=== PATIENT | male | born 1955 | race Caucasian/White ===

== ENCOUNTER → 2016-09-20 | Outpatient (CLI) | payer MEDICARE ==
[2016-09-20 13:30] LABS: Blood Urea Nitrogen 13 mg/dL (9-20); Non-African American GFR(MDRD) >60 (>60 ml/min/1.73 sqM)
--- NOTE | 2016-09-20 14:07 | CT ---
EXAMINATION TYPE: CT chest w con DATE OF EXAM: 09/20/2016 1:57 PM COMPARISON: NONE HISTORY: chest mass CT DLP: 723.8 mGycm Automated exposure control for dose reduction was used. CONTRAST: CT scan of the chest is performed with IV Contrast, patient injected with 100 mL of Omnipaque 300. FINDINGS: LUNGS: Emphysematous changes noted with upper lobe centrilobular emphysema seen right greater than le ft. 5.7 mm noncalcified pulmonary nodule right lower lobe image 47 as well as a 7.4 mm pulmonary nodu le left lower lobe image 58. No pulmonary masses identified. MEDIASTINUM: There are no greater than 1 cm hilar or mediastinal lymph nodes. No pericardial effusi on is seen. Thoracic aorta is of normal caliber. The heart is mildly enlarged. Dilatation of the yohan n pulmonary artery measuring 4.7 cm transverse dimension. UPPER ABDOMEN: No significant abnormality appreciated. OTHER: No additional significant abnormality is seen. IMPRESSION: 1. No evidence for pulmonary mass. Nonspecific noncalcified pulmonary nodularity. 2. Upper lobe emphysematous changes. 3. A dilatation of the main pulmonary artery.
== END | disposition home or self-care (01) ==
LOC: RADCTMAIN 12:43
PROVIDERS: ATTEND Internal Medicine Critical Care Medicine
DX: J43.9 Emphysema, unspecified (principal); R91.8 Other nonspecific abnormal finding of lung field; I28.1 Aneurysm of pulmonary artery
CPT/HCPCS: 82565; 84520; 71260; 36415; Q9967

== ENCOUNTER 2016-10-20 07:24 | Inpatient (IN) | payer MEDICARE ==
[2016-10-20] MEDS ORDERED: ACETAMINOPHEN TAB 500 MG TAB PO STA (07:52)
[2016-10-20] MEDS ORDERED: IPRATROPIUM 0.5 MG/2.5 ML NEBU INHALATION STA (07:52)
[2016-10-20] MEDS ORDERED: ALBUTEROL NEBULIZED 2.5 MG/3 ML INHALATION STA (07:52)
[2016-10-20] MEDS ORDERED: methylPREDNISolone SOD SUCCI 125 MG/2 ML VIAL IV STA (07:52)
[2016-10-20] MEDS ORDERED: SODIUM CHLORIDE 0.9% 500 ML IV STA (07:52)
[2016-10-20] MEDS ORDERED: IBUPROFEN 600 MG TAB PO STA (07:53)
--- NOTE | 2016-10-20 07:55 | ED ---
General Adult HPI - General Chief complaint: Shortness of Breath Stated complaint: SOB, SYNCOPE Time Seen by Provider: 10/20/16 07:25 Source: patient, EMS, RN notes reviewed Mode of arrival: EMS - History of Present Illness Initial comments: This is a 61-year-old male who presents emergency Department with a past medical history significant for COPD and continues to smoke about a pack a day. Patient comes in today stating his difficult breathing over the last few days got incredibly worse. Patient states she is unable to sleep at all. Patient states she's also had a little bit more cough than normal. Patient denies any sputum production. Patient denies any chest pain or palpitations. Patient denies abdominal pain patient denies nausea vomiting diarrhea. Patient denies any swelling to the legs or calf tenderness. Patient denies any recent injury or fall. Patient denies headache. Patient denies any lightheadedness dizziness or near syncopal episode. - Related Data Home Medications Medication Instructions Recorded Confirmed Albuterol Sulfate [Ventolin HFA] 1 - 2 puff INHALATION RT-Q6H PRN 05/26/1410/20 metFORMIN HCL [Glucophage] 500 mg PO DAILY 05/26/14 10/20/16 Aspirin EC [Ecotrin Low Dose] 81 mg PO DAILY 05/18/16 10/20/16 Atorvastatin [Lipitor] 20 mg PO DAILY 05/18/16 10/20/16 Metoprolol Succinate [Toprol XL] 100 mg PO DAILY 05/18/16 10/20/16 Lisinopril [Zestril] 10 mg PO DAILY 10/20/16 10/20/16 Previous Rx's Medication Instructions Recorded Furosemide [Lasix] 40 mg PO DAILY #30 tablet 05/21/16 Spironolactone [Aldactone] 25 mg PO DAILY #30 tab 05/21/16 Albuterol Nebulized [Ventolin 2.5 mg INHALATION RT-TID #0 05/25/16 Nebulized] Allergies Allergy/AdvReac Type Severity Reaction Status Date / Time levofloxacin [From Levaquin] Allergy Rash/Hives Verified 10/20/16 08:02 mold Allergy Rash/Hives Verified 10/20/16 08:02 prednisone AdvReac Rash/Hives Verified 10/20/16 08:02 Review of Systems ROS Statement: Those systems with pertinent positive or pertinent negative responses have been documented in the HPI. ROS Other: All systems not noted in ROS Statement are negative. Past Medical History Past Medical History: Coronary Artery Disease (CAD), COPD, Diabetes Mellitus, Hyperlipidemia, Hypertension, Myocardial Infarction ([place]), Osteoarthritis (OA) Additional Past Medical History / Comment(s): cardiac myopathy with an ejection fraction of 20% for which the patient has undergone an AICD/pacemaker insertion Last Myocardial Infarction Date:: UNSURE History of Any Multi-Drug Resistant Organisms: None Reported Past Surgical History: AICD, Coronary Bypass/CABG, Orthopedic Surgery Additional Past Surgical History / Comment(s): Pacemaker and AICD- 09/2013, BILATERAL SHOULDER SURGERY , steel alcides in leg from fracture Past Anesthesia/Blood Transfusion Reactions: No Reported Reaction Type of Cardiac Device: AICD Device Placement Date:: Past Psychological History: No Psychological Hx Reported Smoking Status: Current every day smoker Past Alcohol Use History: Daily Past Drug Use History: None Reported - Past Family History Mother History Unknown: Yes Father Family Medical History: Myocardial Infarction ([place]) Brother(s) Family Medical History: Cancer General Exam - General Exam Comments Initial Comments: GENERAL: Patient is well-developed and well-nourished. Patient is nontoxic and well- hydrated and is in moderate distress. ENT: Neck is soft and supple. No significant lymphadenopathy is noted. Oropharynx is clear. Moist mucous membranes. Neck has full range of motion without eliciting any pain. EYES: The sclera were anicteric and conjunctiva were pink and moist. Extraocular movements were intact and pupils were equal round and reactive to light. Eyelids were unremarkable. PULMONARY: Patient is having a difficult time breathing he is wheezing diffusely. CARDIOVASCULAR: There is a regular rate and rhythm without any murmurs gallops or rubs. ABDOMEN: Soft and nontender with normal bowel sounds. No palpable organomegaly was noted. There is no palpable pulsatile mass. SKIN: Skin is clear with no lesions or rashes and otherwise unremarkable. NEUROLOGIC: Patient is alert and oriented x3. Cranial nerves II through XII are grossly intact. Motor and sensory are also intact. Normal speech, volume and content. Symmetrical smile. MUSCULOSKELETAL: Normal extremities with adequate strength and full range of motion. No lower extremity swelling or edema. No calf tenderness. LYMPHATICS: No significant lymphadenopathy is noted PSYCHIATRIC: Normal psychiatric evaluation. Normal interpersonal interactions appears functionally intact in deals appropriately with others. No signs of depression. No signs of anxiety. Course Vital Signs 10/20/16 10/20/16 10/20/16 07:25 07:31 07:41 Temperature 97.9 F 100.9 F H Pulse Rate 58 L 54 L Respiratory 24 24 20 Rate Blood Pressure 120/67 113/72 O2 Sat by Pulse 99 95 Oximetry 10/20/16 10/20/16 10/20/16 08:01 08:17 08:31 Temperature 100.9 F H Pulse Rate 62 67 102 H Respiratory 20 Rate Blood Pressure 175/116 O2 Sat by Pulse Oximetry 10/20/16 08:42 Temperature Pulse Rate 104 H Respiratory Rate Blood Pressure O2 Sat by Pulse Oximetry Medical Decision Making - Medical Decision Making This EKG shows a paced rhythm at 54 bpm VT interval is 424 QRS is 210 QT interval 568 QTC is 531. Patient had 3 consecutive breathing treatments I went and listened to him after the treatments he was improved he felt improved but he continued to have wheezing diffusely. Chest x-ray shows no acute abnormality. Because the patient's fever cough and COPD history I started the patient on Rocephin is a throat. I spoke with Dr. An he agreed to accept the admission I admitted the patient and wrote admitting orders I continued the antibiotics on the floor. I also continue treatments. Patient did not get any steroids because he says he is ALLERGIC to steroids. - Lab Data Result diagrams: 10/20/16 07:20 10/20/16 07:20 Lab Results 10/20/16 10/20/16 10/20/16 Range/Units 07:20 07:20 07:20 WBC 5.5 (3.8-10.6) k/uL RBC 4.49 (4.30-5.90) m/uL Hgb 13.9 (13.0-17.5) gm/dL Hct 42.5 (39.0-53.0) % MCV 94.7 (80.0-100.0) fL MCH 30.9 (25.0-35.0) pg MCHC 32.6 (31.0-37.0) g/dL RDW 14.2 (11.5-15.5) % Plt Count 143 L (150-450) k/uL Neutrophils % 81 % Lymphocytes % 9 % Monocytes % 7 % Eosinophils % 1 % Basophils % 1 % Neutrophils # 4.5 (1.3-7.7) k/uL Lymphocytes # 0.5 L (1.0-4.8) k/uL Monocytes # 0.4 (0-1.0) k/uL Eosinophils # 0.1 (0-0.7) k/uL Basophils # 0.0 (0-0.2) k/uL PT (9.0-12.0) sec INR (<1.1) APTT (22.0-30.0) sec Sodium 135 L (137-145) mmol/L Potassium 4.8 (3.5-5.1) mmol/L Chloride 99 (98-107) mmol/L Carbon Dioxide 24 (22-30) mmol/L Anion Gap 12 mmol/L BUN 15 (9-20) mg/dL Creatinine 1.01 (0.66-1.25) mg/dL Est GFR (MDRD) Af Amer >60 (>60 ml/min/1.73 sqM) Est GFR (MDRD) Non-Af >60 (>60 ml/min/1.73 sqM) Glucose 200 H (74-99) mg/dL POC Glucose (mg/dL) (75-99) mg/dL POC Glu [employer] Administrator ID Plasma Lactic Acid Meng (0.7-2.0) mmol/L Calcium 8.7 (8.4-10.2) mg/dL Magnesium 1.7 (1.6-2.3) mg/dL Total Bilirubin 1.6 H (0.2-1.3) mg/dL AST 40 (17-59) U/L ALT 40 (21-72) U/L Alkaline Phosphatase 63 (38-126) U/L Total Creatine Kinase 159 (55-170) U/L CK-MB (CK-2) 3.4 H* (0.0-2.4) ng/mL CK-MB (CK-2) Rel Index 2.1 Troponin I 0.047 H* (0.000-0.034) ng/mL NT-Pro-B Natriuret Pep pg/mL Total Protein 6.4 (6.3-8.2) g/dL Albumin 4.0 (3.5-5.0) g/dL Influenza Type A RNA (Not Detectd) Influenza Type B (PCR) (Not Detectd) 10/20/16 10/20/16 10/20/16 Range/Units 07:20 07:20 07:20 WBC (3.8-10.6) k/uL RBC (4.30-5.90) m/uL Hgb (13.0-17.5) gm/dL Hct (39.0-53.0) % MCV (80.0-100.0) fL MCH (25.0-35.0) pg MCHC (31.0-37.0) g/dL RDW (11.5-15.5) % Plt Count (150-450) k/uL Neutrophils % % Lymphocytes % % Monocytes % % Eosinophils % % Basophils % % Neutrophils # (1.3-7.7) k/uL Lymphocytes # (1.0-4.8) k/uL Monocytes # (0-1.0) k/uL Eosinophils # (0-0.7) k/uL Basophils # (0-0.2) k/uL PT 11.3 (9.0-12.0) sec INR 1.1 (<1.1) APTT 22.9 (22.0-30.0) sec Sodium (137-145) mmol/L Potassium (3.5-5.1) mmol/L Chloride (98-107) mmol/L Carbon Dioxide (22-30) mmol/L Anion Gap mmol/L BUN (9-20) mg/dL Creatinine (0.66-1.25) mg/dL Est GFR (MDRD) Af Amer (>60 ml/min/1.73 sqM) Est GFR (MDRD) Non-Af (>60 ml/min/1.73 sqM) Glucose (74-99) mg/dL POC Glucose (mg/dL) (75-99) mg/dL POC Glu [employer] Administrator ID Plasma Lactic Acid Meng 1.9 (0.7-2.0) mmol/L Calcium (8.4-10.2) mg/dL Magnesium (1.6-2.3) mg/dL Total Bilirubin (0.2-1.3) mg/dL AST (17-59) U/L ALT (21-72) U/L Alkaline Phosphatase (38-126) U/L Total Creatine Kinase (55-170) U/L CK-MB (CK-2) (0.0-2.4) ng/mL CK-MB (CK-2) Rel Index Troponin I (0.000-0.034) ng/mL NT-Pro-B Natriuret Pep 4840 pg/mL Total Protein (6.3-8.2) g/dL Albumin (3.5-5.0) g/dL Influenza Type A RNA (Not Detectd) Influenza Type B (PCR) (Not Detectd) 10/20/16 10/20/16 Range/Units 07:50 08:09 WBC (3.8-10.6) k/uL RBC (4.30-5.90) m/uL Hgb (13.0-17.5) gm/dL Hct (39.0-53.0) % MCV (80.0-100.0) fL MCH (25.0-35.0) pg MCHC (31.0-37.0) g/dL RDW (11.5-15.5) % Plt Count (150-450) k/uL Neutrophils % % Lymphocytes % % Monocytes % % Eosinophils % % Basophils % % Neutrophils # (1.3-7.7) k/uL Lymphocytes # (1.0-4.8) k/uL Monocytes # (0-1.0) k/uL Eosinophils # (0-0.7) k/uL Basophils # (0-0.2) k/uL PT (9.0-12.0) sec INR (<1.1) APTT (22.0-30.0) sec Sodium (137-145) mmol/L Potassium (3.5-5.1) mmol/L Chloride (98-107) mmol/L Carbon Dioxide (22-30) mmol/L Anion Gap mmol/L BUN (9-20) mg/dL Creatinine (0.66-1.25) mg/dL Est GFR (MDRD) Af Amer (>60 ml/min/1.73 sqM) Est GFR (MDRD) Non-Af (>60 ml/min/1.73 sqM) Glucose (74-99) mg/dL POC Glucose (mg/dL) 196 H (75-99) mg/dL POC Glu [employer] Administrator ID Naomi Kearns Plasma Lactic Acid Meng (0.7-2.0) mmol/L Calcium (8.4-10.2) mg/dL Magnesium (1.6-2.3) mg/dL Total Bilirubin (0.2-1.3) mg/dL AST (17-59) U/L ALT (21-72) U/L Alkaline Phosphatase (38-126) U/L Total Creatine Kinase (55-170) U/L CK-MB (CK-2) (0.0-2.4) ng/mL CK-MB (CK-2) Rel Index Troponin I (0.000-0.034) ng/mL NT-Pro-B Natriuret Pep pg/mL Total Protein (6.3-8.2) g/dL Albumin (3.5-5.0) g/dL Influenza Type A RNA Not Detected (Not Detectd) Influenza Type B (PCR) Not Detected (Not Detectd) Critical Care Time Critical Care Time: Yes Total Critical Care Time: 35 Disposition Clinical Impression: Acute exacerbation of chronic obstructive airways disease Disposition: ADMITTED IP TO THIS [facility] Time of Disposition: 10:10
[2016-10-20 08:10] LABS: Glucose,Whole Blood 196 mg/dL (75-99)
[2016-10-20 08:13] LABS: Basophils % (A) 1 %; CH 31.4; CHCM 33.3; Eosinophils # (A) 0.1 k/uL (0-0.7); Eosinophils % (A) 1 %; HCT 42.5 % (39.0-53.0); HDW 2.82; HGB 13.9 gm/dL (13.0-17.5); Luc # (Auto) 0.13; Luc % (Auto) 2; Lymphocytes # (A) 0.5 k/uL (1.0-4.8); Lymphocytes % (A) 9 %; MCH 30.9 pg (25.0-35.0); MCHC 32.6 g/dL (31.0-37.0); MCV 94.7 fL (80.0-100.0); Mean Platelet Volume 7.7; Monocytes # (A) 0.4 k/uL (0-1.0); Monocytes % (A) 7 %; Neutrophils # (A) 4.5 k/uL (1.3-7.7); Neutrophils % (A) 81 %; RBC 4.49 m/uL (4.30-5.90); RDW 14.2 % (11.5-15.5); WBC 5.5 k/uL (3.8-10.6); WBC (Perox) 5.67
[2016-10-20 08:25] LABS: INR 1.1 (<1.1); Partial Thromboplastin Time 22.9 sec (22.0-30.0); Prothrombin Time 11.3 sec (9.0-12.0)
[2016-10-20 08:30] LABS: ALT 40 U/L (21-72); AST 40 U/L (17-59); Alkaline Phosphatase 63 U/L (38-126); Anion Gap 12 mmol/L; Blood Urea Nitrogen 15 mg/dL (9-20); Calcium 8.7 mg/dL (8.4-10.2); Carbon Dioxide 24 mmol/L (22-30); Chloride 99 mmol/L (98-107); Glucose 200 mg/dL (74-99); Magnesium 1.7 mg/dL (1.6-2.3); Non-African American GFR(MDRD) >60 (>60 ml/min/1.73 sqM); Potassium 4.8 mmol/L (3.5-5.1); Sodium 135 mmol/L (137-145); Total Bilirubin 1.6 mg/dL (0.2-1.3); Total Protein 6.4 g/dL (6.3-8.2)
[2016-10-20 08:53] LABS: Creatine Kinase MB 3.4 ng/mL (0.0-2.4); Troponin I 0.047 ng/mL (0.000-0.034)
--- NOTE | 2016-10-20 09:44 | XR ---
EXAMINATION TYPE: XR chest 2V DATE OF EXAM: 10/20/2016 9:34 AM COMPARISON: 09/20/2016 TECHNIQUE: PA and lateral views submitted. HISTORY: Shortness of breath FINDINGS: Cardiac device, postsurgical change and cardiomegaly noted. Hypertrophic and degenerative change of t he spine. No consolidation. No pneumothorax. Mild coarsened interstitium appears chronic. Nodular prominence right apex appears to be secondary to prominent anterior margin first rib. IMPRESSION: 1. Cardiomegaly with no definite acute infiltrate. Coarsened interstitium suggests chronic interstiti al lung disease. Pneumonitis or mild congestion less likely. 2. Nodular density right upper lobe is stable from the previous CT scan and chest x-ray appears be re lated to prominent anterior margin first rib.
[2016-10-20] MEDS ORDERED: PIPERACILLIN-TAZOBACTAM 3.375 GM in DEXTROSE/WATER 1 50ML.BAG IVPB STA (09:47)
[2016-10-20] MEDS ORDERED: SODIUM CHLORIDE 0.9% 1,000 ML IV ONE (09:47)
[2016-10-20] MEDS ORDERED: AZITHROMYCIN 500 MG TAB PO STA (10:45)
[2016-10-20] MEDS: IPRATROPIUM-ALBUTEROL 3 ML NEB INHALATION PRN ×2 (13:52→15:28)
[2016-10-20] MEDS: ALPRAZolam 0.25 MG TAB PO PRN (15:57)
[2016-10-20 17:20] LABS: Glucose,Whole Blood 176 mg/dL (75-99)
[2016-10-20] MEDS: methylPREDNISolone SOD SUCCI 125 MG/2 ML VIAL IV SCH ×2 (18:32→23:04)
[2016-10-20] MEDS: IPRATROPIUM-ALBUTEROL 3 ML NEB INHALATION SCH (20:10)
[2016-10-20] MEDS ORDERED: ALPRAZolam 0.25 MG TAB PO STA (20:49)
[2016-10-20] MEDS ORDERED: FUROSEMIDE 10 MG/ML 4 ML VIAL IV STA (20:50)
[2016-10-20] MEDS ORDERED: INSULIN LISPRO (humaLOG) 300 UNIT/3 ML VIAL SQ SCH (21:00)
[2016-10-20] MEDS ORDERED: LORazepam 2 MG/ML SYRINGE IV STA (21:10)
[2016-10-20 21:26] LABS: Glucose,Whole Blood 207 mg/dL (75-99)
[2016-10-20 22:32] LABS: ABG HCO3 17 mmol/L (21-25); ABG PCO2 27 mmHg (35-45); ABG PH 7.42 (7.35-7.45); ABG PO2 194 mmHg (83-108); ABG TCO2 18 mmol/L (19-24)
[2016-10-20 22:33] LABS: ABG Base Excess -6.4 mmol/L
[2016-10-20] MEDS: HEPARIN SODIUM,PORCINE 5,000 UNIT/ML 1 ML VIAL SQ SCH (23:03)
[2016-10-20] MEDS: INSULIN LISPRO (humaLOG) 300 UNIT/3 ML VIAL SQ SCH (23:03)
[2016-10-21 05:47] LABS: Glucose,Whole Blood 205 mg/dL (75-99)
[2016-10-21] MEDS: methylPREDNISolone SOD SUCCI 125 MG/2 ML VIAL IV SCH ×4 (06:39→23:12)
[2016-10-21 07:15] LABS: Anion Gap 11 mmol/L; Blood Urea Nitrogen 32 mg/dL (9-20); Calcium 8.6 mg/dL (8.4-10.2); Carbon Dioxide 23 mmol/L (22-30); Chloride 98 mmol/L (98-107); Glucose 187 mg/dL (74-99); Non-African American GFR(MDRD) 53 (>60 ml/min/1.73 sqM); Sodium 132 mmol/L (137-145)
[2016-10-21 07:24] LABS: Basophils % (A) 0 %; CH 31.5; Eosinophils % (A) 0 %; HCT 46.4 % (39.0-53.0); HDW 2.73; HGB 15.2 gm/dL (13.0-17.5); Luc # (Auto) 0.11; Luc % (Auto) 2; Lymphocytes # (A) 0.5 k/uL (1.0-4.8); Lymphocytes % (A) 8 %; MCH 31.4 pg (25.0-35.0); MCHC 32.8 g/dL (31.0-37.0); MCV 95.9 fL (80.0-100.0); Monocytes # (A) 0.3 k/uL (0-1.0); Monocytes % (A) 6 %; Neutrophils # (A) 4.7 k/uL (1.3-7.7); Neutrophils % (A) 84 %; RBC 4.84 m/uL (4.30-5.90); RDW 14.2 % (11.5-15.5); WBC 5.6 k/uL (3.8-10.6); WBC (Perox) 5.51
[2016-10-21] MEDS: IPRATROPIUM-ALBUTEROL 3 ML NEB INHALATION SCH ×4 (07:34→19:43)
[2016-10-21 07:38] LABS: Potassium 5.8 mmol/L (3.5-5.1)
[2016-10-21] MEDS: INSULIN LISPRO (humaLOG) 300 UNIT/3 ML VIAL SQ SCH ×4 (08:39→21:42)
[2016-10-21] MEDS: HEPARIN SODIUM,PORCINE 5,000 UNIT/ML 1 ML VIAL SQ SCH ×3 (08:40→23:12)
[2016-10-21] MEDS: metFORMIN 500 MG TAB PO SCH (08:41)
[2016-10-21] MEDS: ATORVASTATIN 20 MG TAB PO SCH (08:41)
[2016-10-21] MEDS: ASPIRIN 81 MG CHEW PO SCH (08:41)
[2016-10-21] MEDS: AZITHROMYCIN 500 MG TAB PO SCH (08:41)
[2016-10-21] MEDS ORDERED: FUROSEMIDE 40 MG TAB PO SCH (09:00)
[2016-10-21] MEDS ORDERED: FUROSEMIDE 10 MG/ML 4 ML VIAL IV SCH (09:00)
[2016-10-21] MEDS ORDERED: SPIRONOLACTONE 25 MG TAB PO SCH (09:00)
[2016-10-21] MEDS ORDERED: LISINOPRIL 10 MG TAB PO SCH (09:00)
[2016-10-21] MEDS ORDERED: METOPROLOL SUCCINATE (ER) 100 MG TAB.ER.24H PO SCH (09:00)
--- NOTE | 2016-10-21 10:07 | HP ---
DATE OF ADMISSION: CHIEF COMPLAINT: Short of breath. HISTORY OF PRESENT ILLNESS: Mr. Colvin is a 61-year-old male with known history of COPD on home oxygen, coronary artery disease, history of coronary artery bypass graft and ischemic cardiomyopathy, status post AICD placement ejection fraction 30% to 35%, hypertension, hyperlipidemia and diabetes mellitus came to the hospital with complaints of worsening short of breath for the past 3 to 4 days and otherwise denied any complaints of fever or chills. Patient does have cough without much sputum production. Patient's short of breath is getting worse, this made him come to the hospital. Otherwise, patient continues to smoke 1 pack per day. Denied any recent illnesses. No flu-like symptoms. No recent travel ( ). Denied any headache or dizziness. No complaint of chest pain. Otherwise, denied any lightheadedness or dizziness or syncopal episode. REVIEW OF SYSTEMS: CONSTITUTIONAL: No fever. No chills. No weakness. RESPIRATORY: Patient does have cough, no sputum production. Patient does have short of breath. CARDIOVASCULAR: No chest pain. Patient does have short of breath. No leg swelling. ABDOMEN: No nausea, vomiting, abdominal pain. GENITOURINARY: Negative. ENDOCRINE: Negative. PSYCHIATRIC: Negative. SKIN: Negative. All other 14-point review of systems negative except as above. Past medical history includes coronary artery disease with history of coronary artery bypass graft, ischemic cardiomyopathy, AICD placement, COPD on home oxygen, diabetes mellitus, hyperlipidemia, hypertension, history of RI, osteoarthritis. PAST SURGICAL HISTORY: AICD placement, coronary artery bypass graft and bilateral shoulder surgery, steel alcides in leg from fracture. No psychosocial history. SOCIAL HISTORY: Patient is currently an everyday smoker. 1 pack per day. Patient does have history of alcohol abuse . Denied any drugs or IVDU. FAMILY HISTORY: Mother unknown. Father had RI. Brother has cancer. Allergies include LEVOFLOXACIN, MOLD, and PREDNISONE. HOME MEDICATIONS: 1. Ventolin HFA. 2. Glucophage. 3. Aspirin. 4. Atorvastatin. 5. Metoprolol. 6. Lisinopril. 7. Lasix. 8. Spironolactone. 9. Albuterol nebulization. PHYSICAL EXAMINATION: A 61-year-old male lying in the bed. Awake, alert, oriented x3. Appears to be in distress due to short of breath and using accessory muscles. VITALS: Blood pressure is 116/62, pulse ox 99% on nasal cannula, respiration 18 to 20, temperature afebrile. Pulse is 102 to 50. HEENT: Atraumatic, normocephalic. Neck is supple. No JVD. CVS EXAM: S1, S2 heard. No murmurs, no gallop. No leg swelling. LUNGS: Bilateral diminished air entry. Expiratory wheezing positive. Prolonged respirations. Using accessory muscles, appears to be in labored breathing. ABDOMEN: Soft, nontender. Bowel sounds present. SMELTER CHARGER: Awake, alert, oriented x3. No focal deficit. EXTREMITIES: No edema. Pulses palpable bilaterally. No clubbing or cyanosis. PSYCHIATRIC: Cooperative. LABORATORY DATA: WBC 5.5, hemoglobin 13.9, platelets 143. Sodium 135, potassium 4.8, chloride 99, bicarb is 24. BUN 15, creatinine 1.01. Hemoglobin A1c 7.0. Liver enzymes are not elevated. Troponin 0.047. NT-proBNP is 4840. IMPRESSION: 1. Acute chronic obstructive pulmonary disease exacerbation. 2. Acute hypoxic respiratory failure secondary to chronic obstructive pulmonary disease. 3. Elevated troponin/troponin leak. 4. Acute on chronic congestive heart failure with systolic function ejection fraction 30% to 35%, status post AICD placement. 5. Ongoing nicotine addiction. 6. History of coronary artery disease, status post coronary artery bypass graft. 7. Type 2 diabetes mellitus. Hemoglobin A1c is 7.0. 8. Hypertension. 9. Hyperlipidemia. 10. Degenerative joint disease. 11. Previous history of alcohol abuse. 12. Hypovolemic hyponatremia. DISCUSSION AND PLAN: The patient will be continued on methylprednisolone and DuoNeb and patient will be continued on IV Lasix and continue with antibiotics in the form of azithromycin and continue with the home medications. Insulin dosing for better blood sugar control and continue with the current medications. Patient will be started on BiPAP machine as the patient is in respiratory distress and using accessory muscles. Pulmonary has been consulted and possible transfer to critical care unit if he does not get better with BiPAP. Will follow up closely. Prognosis guarded. Further recommendations based on clinical course. The patient will be started on heparin subcu for DVT prophylaxis.
[2016-10-21 11:55] LABS: Glucose,Whole Blood 200 mg/dL (75-99)
--- NOTE | 2016-10-21 12:07 | P.CNPUL ---
History of Present Illness Consult date: 10/21/16 Requesting physician: Rishi An Reason for consult: COPD Chief complaint: Shortness of breath. History of present illness: This is a very pleasant 61-year-old gentleman who follows with Dr. Merritt as his primary care physician. He has a history of coronary artery disease with previous coronary artery bypass grafting and with ischemic cardiomyopathy with impaired left ventricular systolic function with estimated ejection fraction of 20%. He is status post AICD placement. He also has a history of diabetes mellitus, hyperlipidemia, hypertension, osteoarthritis and daily alcohol use approximately 6 beers a day. He also has chronic and ongoing nicotine dependence of greater than 40 years and significant chronic obstructive pulmonary disease and he follows with Dr. Iraheta in our office for the same. He is maintained on albuterol and has a nebulizer at home. He was to be on Symbicort but states he has been out of it for some time due to cost. There was concern regarding possible chest mass however a computed tomography scan with contrast on 09/20/2016 revealed no evidence of a pulmonary mass. There are nonspecific noncalcified nodularity. Upper lobe emphysema changes. There was dilatation of the main pulmonary artery.He presented here yesterday with complaints of increasing shortness of breath, cough and congestion. His cough has been nonproductive. He has had chills and night sweats. No significant chest pain, palpitations, lightheadedness or dizziness. No calf pain. He is seen today in consultation on the selective care unit. He is awake and alert in no acute distress. He states his breathing is slightly better today as compared to yesterday but not quite back to his baseline. Arterial blood gases were obtained on 100% FiO2 which revealed a pO2 of 194, pCO2 27, pH 7.42. He did have a T-max of 100.9. Lactic acid 1.9, influenza screen negative, no leukocytosis. Chest x-ray reveals no acute pulmonary process. he is still requiring 10 L of high flow nasal cannula to maintain O2 saturations in the 90s. Review of Systems 14 point review of system was conducted. All negative other than as mentioned in HPI. Past Medical History Past Medical History: Coronary Artery Disease (CAD), Chest Pain / Angina, Heart Failure, COPD, Diabetes Mellitus, Hyperlipidemia, Myocardial Infarction (GA), Osteoarthritis (OA) Additional Past Medical History / Comment(s): Cardiomyopathy, pt states he has had several MIs, tinnitis bilaterally, DJD bilateral hips, occasional back pain , pt states he does not have HTN, hypertension is in past medical records. Last Myocardial Infarction Date:: UNSURE History of Any Multi-Drug Resistant Organisms: None Reported Past Surgical History: AICD, Coronary Bypass/CABG, Heart Catheterization, Orthopedic Surgery Additional Past Surgical History / Comment(s): Pacemaker and AICD- 10/2013, CABG 1 vessel many yrs ago per pt, BILATERAL SHOULDER SURGERY , steel alcides in leg from fracture Past Anesthesia/Blood Transfusion Reactions: No Reported Reaction Type of Cardiac Device: Permanent Pacemaker, AICD Device Placement Date:: Past Psychological History: No Psychological Hx Reported Additional Psychological History / Comment(s): Pt resides with his spouse. He has a walker at home but does not need to use it. He drives. He has a nebulizer. Smoking Status: Current every day smoker Past Alcohol Use History: Daily Additional Past Alcohol Use History / Comment(s): Pt states he started smoking in 1970 and was a 2 ppd smoker for years, he is now a 1 ppd smoker. Pt states he drinks beer daily and usually 6-8 beers a day. Yesterday, he drank 4 beers. Past Drug Use History: None Reported - Past Family History Mother History Unknown: Yes Father Family Medical History: Myocardial Infarction (GA) Additional Family Medical History / Comment(s): Father of a GA at the age of 56yrs. Brother(s) Family Medical History: Cancer Medications and Allergies Home Medications Medication Instructions Recorded Confirmed Type Albuterol Sulfate [Ventolin HFA] 1 - 2 puff INHALATION RT-Q6H PRN 05/26/1410/20 History metFORMIN HCL [Glucophage] 500 mg PO DAILY 05/26/14 10/20/16 History Aspirin EC [Ecotrin Low Dose] 81 mg PO DAILY 05/18/16 10/20/16 History Atorvastatin [Lipitor] 20 mg PO DAILY 05/18/16 10/20/16 History Metoprolol Succinate [Toprol XL] 100 mg PO DAILY 05/18/16 10/20/16 History Lisinopril [Zestril] 10 mg PO DAILY 10/20/16 10/20/16 History Allergies Allergy/AdvReac Type Severity Reaction Status Date / Time Latex, Natural Rubber Allergy Rash/Hives Verified 10/20/16 10:47 levofloxacin [From Levaquin] Allergy Rash/Hives Verified 10/20/16 08:02 mold Allergy Rash/Hives Verified 10/20/16 08:02 prednisone AdvReac Rash/Hives Verified 10/20/16 08:02 Physical Exam Vitals: Vital Signs Temp Pulse Pulse Resp BP BP Pulse Ox 10/21/16 11:30 92 10/21/16 11:19 90 10/21/16 08:30 57 L 24 164/88 99 10/21/16 07:50 88 10/21/16 07:34 84 10/21/16 04:00 51 L 24 130/68 99 10/21/16 00:00 97.2 F L 54 L 24 143/67 97 10/20/16 20:30 95 10/20/16 20:18 62 10/20/16 20:00 57 L 24 142/70 97 10/20/16 16:00 97.6 F 99 24 136/69 10/20/16 15:42 72 10/20/16 15:28 68 10/20/16 14:05 93 10/20/16 14:01 96.8 F L 64 20 99 10/20/16 13:52 76 10/20/16 13:36 50 L 18 116/62 99 10/20/16 12:09 69 18 103/62 98 Intake and Output 10/20/16 10/21/16 10/21/16 22:59 06:59 14:59 Output Total 100 900 Balance -100 -900 Output: Urine 100 900 Other: Voiding Method Urinal Indwelling Catheter Indwelling Catheter # Voids 0 # Bowel Movements 1 Weight 127 kg 125.5 kg GENERAL EXAM: Alert, comfortable in no apparent distress. HEAD: Normocephalic. EYES: Normal reaction of pupils, equal size. NOSE: Clear with pink turbinates. THROAT: No erythema or exudates. NECK: No masses, no JVD. CHEST: No chest wall deformity. LUNGS: Equal air entry with end expiratory wheeze bilaterally. Diminished.. CVS: S1 and S2 normal with an audible murmur, regular rhythm. ABDOMEN: No hepatosplenomegaly, normal bowel sounds, no guarding or rigidity. SPINE: No scoliosis or deformity SKIN: No rashes CENTRAL NERVOUS SYSTEM: No focal deficits, tone is normal in all 4 extremities. Extremities: There is no significant peripheral edema. No clubbing, no cyanosis. Peripheral pulses are intact. Results - Laboratory Findings CBC and BMP: 10/21/16 06:23 10/21/16 06:23 ABG ABG pH 7.42 (7.35-7.45) 10/20/16 21:53 ABG pCO2 27 mmHg (35-45) L 10/20/16 21:53 ABG pO2 194 mmHg (83-108) H 10/20/16 21:53 ABG O2 Saturation 100.0 % (94-97) H 10/20/16 21:53 PT/INR, D-dimer PT 11.3 sec (9.0-12.0) 10/20/16 07:20 INR 1.1 (<1.1) 10/20/16 07:20 Abnormal lab findings: Abnormal Labs 10/20/16 10/20/16 10/20/16 17:08 19:46 21:06 Plt Count Lymphocytes # ABG pCO2 ABG pO2 ABG HCO3 ABG Total CO2 ABG O2 Saturation Sodium Potassium BUN Creatinine Glucose POC Glucose (mg/dL) 176 H 207 H Troponin I 0.044 H* 10/20/16 10/21/16 10/21/16 21:53 00:44 05:46 Plt Count Lymphocytes # ABG pCO2 27 L ABG pO2 194 H ABG HCO3 17 L ABG Total CO2 18 L ABG O2 Saturation 100.0 H Sodium Potassium BUN Creatinine Glucose POC Glucose (mg/dL) 205 H Troponin I 0.051 H* 10/21/16 10/21/16 10/21/16 06:23 06:23 06:23 Plt Count 91 L Lymphocytes # 0.5 L ABG pCO2 ABG pO2 ABG HCO3 ABG Total CO2 ABG O2 Saturation Sodium 132 L Potassium 5.8 H BUN 32 H Creatinine 1.36 H Glucose 187 H POC Glucose (mg/dL) Troponin I 0.078 H* - Diagnostic Findings Chest x-ray: image reviewed Assessment and Plan Plan: impression: #1 Acute exacerbation of severe chronic obstructive pulmonary disease. #2 Acute hypoxic respiratory failure secondary to above. #3 Chronic and ongoing tobacco dependence. #4 Alcohol use of approximate 6 beers daily. #5 Coronary artery disease with previous coronary artery bypass grafting. #6 Severe ischemic cardiomyopathy with estimated ejection fraction less than 10% , status post AICD placement. #7 Hypertension. #8 Hyperlipidemia. #9 History of medication noncompliance (Symbicort) secondary to cost. #10 Mild troponin leak. #11 Acute renal insufficiency, current creatinine 1.36. Plan: The patient was seen and evaluated by Dr. Tompkins. His chest x-ray and labs were reviewed. We will go ahead and treat the patient for his COPD exacerbation and continue with bronchodilators 4 times a day and when necessary we will add Pulmicort and Perforomist inhalations twice a day. We'll continue with IV Solu-Medrol 60 mg every 6 hours. He is on empiric antibiotics in the form of azithromycin. He is being diuresed with 40 mg of IV Lasix daily as well. He is on heparin subcutaneous for DVT prophylaxis and Protonix for GI prophylaxis. We'll increase his activity as tolerated. We'll continue to follow. The patient has again been educated regarding the importance of complete smoking cessation and a NicoDerm patch will be offered. He is also educated regarding the importance of alcohol cessation/moderation and the CIWA protocol may be initiated. We'll continue to follow. Time with Patient: Greater than 30
[2016-10-21] MEDS ORDERED: NICOTINE 14MG/24HR PATCH TRANSDERM SCH (12:15)
[2016-10-21] MEDS: NICOTINE 21MG/24HR PATCH TRANSDERM SCH (16:26)
[2016-10-21 16:46] LABS: Glucose,Whole Blood 237 mg/dL (75-99)
[2016-10-21] MEDS: BUDESONIDE 1 MG/2 ML NEBU INHALATION SCH (19:43)
[2016-10-21] MEDS: FORMOTEROL FUMARATE 20 MCG/2 ML NEBU INHALATION SCH (19:43)
[2016-10-21 20:34] LABS: Glucose,Whole Blood 218 mg/dL (75-99)
[2016-10-22 06:34] LABS: Glucose,Whole Blood 189 mg/dL (75-99)
[2016-10-22] MEDS: PANTOPRAZOLE 40 MG TABLET PO SCH (06:55)
[2016-10-22] MEDS: methylPREDNISolone SOD SUCCI 125 MG/2 ML VIAL IV SCH ×4 (06:55→23:51)
[2016-10-22] MEDS: INSULIN LISPRO (humaLOG) 300 UNIT/3 ML VIAL SQ SCH ×3 (06:55→16:41)
[2016-10-22 07:06] LABS: Anion Gap 13 mmol/L; Blood Urea Nitrogen 46 mg/dL (9-20); Calcium 8.6 mg/dL (8.4-10.2); Carbon Dioxide 18 mmol/L (22-30); Chloride 97 mmol/L (98-107); Glucose 187 mg/dL (74-99); Non-African American GFR(MDRD) >60 (>60 ml/min/1.73 sqM); Potassium 5.2 mmol/L (3.5-5.1); Sodium 128 mmol/L (137-145)
[2016-10-22 07:13] LABS: Basophils % (A) 0 %; CH 31.6; CHCM 33.6; Eosinophils % (A) 0 %; HCT 43.5 % (39.0-53.0); HGB 14.3 gm/dL (13.0-17.5); Luc # (Auto) 0.14; Luc % (Auto) 2; Lymphocytes # (A) 0.6 k/uL (1.0-4.8); Lymphocytes % (A) 7 %; MCH 31.2 pg (25.0-35.0); MCV 94.5 fL (80.0-100.0); Mean Platelet Volume 9.3; Monocytes # (A) 0.4 k/uL (0-1.0); Monocytes % (A) 5 %; Neutrophils # (A) 7.4 k/uL (1.3-7.7); Neutrophils % (A) 86 %; WBC 8.6 k/uL (3.8-10.6); WBC (Perox) 9.28
[2016-10-22] MEDS: FORMOTEROL FUMARATE 20 MCG/2 ML NEBU INHALATION SCH ×2 (08:01→19:58)
[2016-10-22] MEDS: BUDESONIDE 1 MG/2 ML NEBU INHALATION SCH ×2 (08:01→19:58)
[2016-10-22] MEDS: IPRATROPIUM-ALBUTEROL 3 ML NEB INHALATION SCH ×4 (08:01→20:00)
[2016-10-22] MEDS: NICOTINE 21MG/24HR PATCH TRANSDERM SCH (08:41)
[2016-10-22] MEDS: metFORMIN 500 MG TAB PO SCH (08:41)
[2016-10-22] MEDS: FUROSEMIDE 40 MG TAB PO SCH (08:42)
[2016-10-22] MEDS: ASPIRIN 81 MG CHEW PO SCH (08:42)
[2016-10-22] MEDS: ATORVASTATIN 20 MG TAB PO SCH (08:42)
[2016-10-22] MEDS: HEPARIN SODIUM,PORCINE 5,000 UNIT/ML 1 ML VIAL SQ SCH ×3 (08:42→23:46)
[2016-10-22] MEDS: AZITHROMYCIN 500 MG TAB PO SCH (08:42)
--- NOTE | 2016-10-22 11:35 | PN ---
DATE OF SERVICE: 10/21/2016 INTERVAL HISTORY: Mr. Colvin is a 61-year-old male with a known history of chronic obstructive pulmonary disease on home oxygen, coronary artery disease with history of bypass graft, ischemic cardiomyopathy with ejection fraction of 10%, status post AICD placement, hypertension, hyperlipidemia, alcohol abuse on a daily basis, came to the hospital with complaints of worsening short of breath for the past 3 to 4 days. Patient currently being treated for acute COPD exacerbation and currently saturating well ( ). Breathing status has improved compared to yesterday. Otherwise patient is still having significant wheezing. Patient does smoke 1 pack per day and drinks about 6 to 8 beers per day. Denied any complaints of chest pain. Patient did improve clinically compared to yesterday. No acute overnight issues. Patient is off BiPAP machine. REVIEW OF SYSTEMS: CONSTITUTIONAL: No fever. No chills. RESPIRATORY: No cough or sputum production. Patient does have underlying short of breath, not worsening. ABDOMEN: No nausea, vomiting. No diarrhea. GENITOURINARY: Negative. ENDOCRINE: Negative. PSYCHIATRIC: Negative. SKIN: Negative. All other fourteen-point review of system negative except as above. CURRENT MEDICATIONS: Reviewed. PHYSICAL EXAMINATION: Mr. Colvin is a 61-year-old male lying in bed comfortably. Awake, alert, oriented x3, appears to be in no apparent distress. VITALS: Blood pressure 127/81, pulse is 96, respirations 18, temperature afebrile, pulse ox 99% on 9-L high flow oxygen. HEENT: Atraumatic, normocephalic. Neck supple. No JVD. CVS: S1, S2 heard. No murmurs, no gallop. LUNGS: Bilateral decreased air entry and wheezing positive diffusely and rhonchi positive. Nonlabored breathing. ABDOMEN: Soft, nontender. Bowel sounds are present. [employer]: Awake, alert, oriented x3. No focal deficits. EXTREMITIES: No edema. Pulses palpable bilaterally. No clubbing or cyanosis. PSYCHIATRIC: Cooperative. Nonsuicidal. SKIN: No rash or skin lesions. LABORATORY DATA: WBC 5.6, hemoglobin 15.2, platelets 91. Sodium 132, potassium 5.8, chloride 98, bicarb is 23, BUN 32, creatinine 1.36. Troponin 0.078. IMPRESSION: 1. Acute chronic obstructive pulmonary disease exacerbation. 2. Acute respiratory failure secondary to chronic obstructive pulmonary disease exacerbation. 3. Acute on chronic congestive heart failure with systolic dysfunction, ejection fraction 10% post AICD placement. 4. Cardiomyopathy with ejection fraction around 10%. 5. Ongoing nicotine addiction. 6. Alcohol abuse, about 6 to 8 beers per day. 7. Elevated troponin/troponin leak. 8. History of coronary artery disease, status post coronary artery bypass graft. 9. Type 2 diabetes mellitus with HbA1c of 7.0. 10. Hypertension. 11. Hyperlipidemia. 12. Degenerative joint disease. 13. Hypovolemic hyponatremia, improved. DISCUSSION AND PLAN: Patient will be continued thiamin, prednisone, DuoNeb and continue with Lasix changed to p.o. and continue with antibiotics in the form azithromycin. Continue with nasal cannula oxygen therapy. Pulmonary is following the patient. Continue the DVT prophylaxis. Further recommendations based on the clinical course. Prognosis guarded.
[2016-10-22 11:50] LABS: Glucose,Whole Blood 282 mg/dL (75-99)
--- NOTE | 2016-10-22 11:58 | P.PN ---
Subjective Principal diagnosis: COPD exacerbation This is a very pleasant 61-year-old gentleman who follows with Dr. Merritt as his primary care physician. He has a history of coronary artery disease with previous coronary artery bypass grafting and with ischemic cardiomyopathy with impaired left ventricular systolic function with estimated ejection fraction of 20%. He is status post AICD placement. He also has a history of diabetes mellitus, hyperlipidemia, hypertension, osteoarthritis and daily alcohol use approximately 6 beers a day. He also has chronic and ongoing nicotine dependence of greater than 40 years and significant chronic obstructive pulmonary disease and he follows with Dr. Iraheta in our office for the same. He is maintained on albuterol and has a nebulizer at home. He was to be on Symbicort but states he has been out of it for some time due to cost. There was concern regarding possible chest mass however a computed tomography scan with contrast on 09/20/2016 revealed no evidence of a pulmonary mass. There are nonspecific noncalcified nodularity. Upper lobe emphysema changes. There was dilatation of the main pulmonary artery.He presented here yesterday with complaints of increasing shortness of breath, cough and congestion. His cough has been nonproductive. He has had chills and night sweats. No significant chest pain, palpitations, lightheadedness or dizziness. No calf pain. He is seen today in consultation on the selective care unit. He is awake and alert in no acute distress. He states his breathing is slightly better today as compared to yesterday but not quite back to his baseline. Arterial blood gases were obtained on 100% FiO2 which revealed a pO2 of 194, pCO2 27, pH 7.42. He did have a T-max of 100.9. Lactic acid 1.9, influenza screen negative, no leukocytosis. Chest x-ray reveals no acute pulmonary process. he is still requiring 10 L of high flow nasal cannula to maintain O2 saturations in the 90s. The patient is seen again today in follow-up on 10/22/2016. He is awake and alert in no acute distress. He is breathing better today as compared to yesterday but not quite back to his baseline. He is still quite dyspneic on minimal exertion. Still bronchospastic and wheezy. He continues to require 8 L of high flow nasal cannula to maintain O2 saturations in the 90s. He is currently afebrile. Objective - Vital Signs Vital signs: Vital Signs Temp 97.1 F L 10/22/16 11:39 Pulse 76 10/22/16 11:44 Resp 22 10/22/16 11:39 BP 140/79 10/22/16 11:39 Pulse Ox 100 10/22/16 11:39 Intake & Output 10/21/16 10/22/16 10/22/16 18:59 06:59 18:59 Intake Total 840 118 Output Total 1200 950 Balance -360 -950 118 Weight 126.1 kg Intake: Oral 840 118 Output: Urine 1200 950 Other: Voiding Method Indwelling Catheter Indwelling Catheter # Voids 0 - Exam GENERAL EXAM: Alert, active, comfortable in no apparent distress. HEAD: Normocephalic. EYES: Normal reaction of pupils, equal size. NOSE: Clear with pink turbinates. THROAT: No erythema or exudates. NECK: No masses, no JVD. CHEST: No chest wall deformity. LUNGS: Equal air entry with bilateral end expiratory wheeze. Diminished. CVS: S1 and S2 normal with no audible mumurs, regular rhythm. ABDOMEN: No hepatosplenomegaly, normal bowel sounds, no guarding or rigidity. SPINE: No scoliosis or deformity SKIN: No rashes CENTRAL NERVOUS SYSTEM: No focal deficits, tone is normal in all 4 extremities. Extremities: There is trace peripheral edema. No clubbing, no cyanosis. Peripheral pulses are intact. - Labs CBC & Chem 7: 10/22/16 06:26 10/22/16 06:26 Labs: Abnormal Lab Results - Last 24 Hours (Table) 10/21/16 10/21/16 10/21/16 Range/Units 11:53 16:42 20:19 Plt Count (150-450) k/uL Lymphocytes # (1.0-4.8) k/uL Sodium (137-145) mmol/L Potassium (3.5-5.1) mmol/L Chloride (98-107) mmol/L Carbon Dioxide (22-30) mmol/L BUN (9-20) mg/dL Glucose (74-99) mg/dL POC Glucose (mg/dL) 200 H 237 H 218 H (75-99) mg/dL 10/22/16 10/22/16 10/22/16 Range/Units 06:26 06:26 06:30 Plt Count 55 L (150-450) k/uL Lymphocytes # 0.6 L (1.0-4.8) k/uL Sodium 128 L (137-145) mmol/L Potassium 5.2 H (3.5-5.1) mmol/L Chloride 97 L (98-107) mmol/L Carbon Dioxide 18 L (22-30) mmol/L BUN 46 H (9-20) mg/dL Glucose 187 H (74-99) mg/dL POC Glucose (mg/dL) 189 H (75-99) mg/dL 10/22/16 Range/Units 11:48 Plt Count (150-450) k/uL Lymphocytes # (1.0-4.8) k/uL Sodium (137-145) mmol/L Potassium (3.5-5.1) mmol/L Chloride (98-107) mmol/L Carbon Dioxide (22-30) mmol/L BUN (9-20) mg/dL Glucose (74-99) mg/dL POC Glucose (mg/dL) 282 H (75-99) mg/dL Assessment and Plan Plan: impression: #1 Acute exacerbation of severe chronic obstructive pulmonary disease. #2 Acute hypoxic respiratory failure secondary to above. #3 Chronic and ongoing tobacco dependence. #4 Alcohol use of approximate 6 beers daily. #5 Coronary artery disease with previous coronary artery bypass grafting. #6 Severe ischemic cardiomyopathy with estimated ejection fraction less than 10% , status post AICD placement. #7 Hypertension. #8 Hyperlipidemia. #9 History of medication noncompliance (Symbicort) secondary to cost. #10 Mild troponin leak. #11 Acute renal insufficiency, current creatinine 1.36. Plan: The patient was seen and evaluated by Dr. Tompkins. We will continue with bronchodilators 4 times a day and when necessary, Pulmicort and Perforomist inhalations twice a day. We'll continue with IV Solu-Medrol 60 mg every 6 hours. He is on empiric antibiotics in the form of azithromycin. He is being diuresed with 40 mg of IV Lasix daily as well. He is on heparin subcutaneous for DVT prophylaxis and Protonix for GI prophylaxis. We'll increase his activity as tolerated. We'll continue to follow. The patient has again been educated regarding the importance of complete smoking cessation and a NicoDerm patch remains in place. We'll continue to follow.
[2016-10-22] MEDS ORDERED: INSULIN REGULAR BOLUS (FROM DRIP BAG) IV ONE (12:33)
[2016-10-22] MEDS: INSULIN REGULAR 100 UNIT in SODIUM CHLORIDE 0.9% 100 ML IV SCH (12:51)
[2016-10-22] MEDS: guaiFENesin-Coden 100-10MG/5ML 10 ML CUP PO PRN ×3 (13:11→23:56)
[2016-10-22 13:17] LABS: Glucose,Whole Blood 345 mg/dL (75-99)
[2016-10-22 13:46] LABS: Glucose,Whole Blood 288 mg/dL (75-99)
[2016-10-22 14:07] LABS: Glucose,Whole Blood 191 mg/dL (75-99)
[2016-10-22 16:39] LABS: Glucose,Whole Blood 83 mg/dL (75-99)
[2016-10-22 17:38] LABS: Glucose,Whole Blood 125 mg/dL (75-99)
[2016-10-22 18:43] LABS: Glucose,Whole Blood 185 mg/dL (75-99)
[2016-10-22 20:40] LABS: Glucose,Whole Blood 191 mg/dL (75-99)
[2016-10-22 22:31] LABS: Glucose,Whole Blood 170 mg/dL (75-99)
[2016-10-22] MEDS: IPRATROPIUM-ALBUTEROL 3 ML NEB INHALATION PRN (23:50)
[2016-10-23 00:54] LABS: Glucose,Whole Blood 114 mg/dL (75-99)
[2016-10-23 02:10] LABS: Glucose,Whole Blood 147 mg/dL (75-99)
[2016-10-23] MEDS: IPRATROPIUM-ALBUTEROL 3 ML NEB INHALATION PRN (03:30)
[2016-10-23 04:16] LABS: Glucose,Whole Blood 168 mg/dL (75-99)
[2016-10-23 06:18] LABS: Glucose,Whole Blood 141 mg/dL (75-99)
[2016-10-23] MEDS: PANTOPRAZOLE 40 MG TABLET PO SCH (06:25)
[2016-10-23] MEDS: methylPREDNISolone SOD SUCCI 125 MG/2 ML VIAL IV SCH ×4 (06:25→23:52)
[2016-10-23] MEDS: guaiFENesin-Coden 100-10MG/5ML 10 ML CUP PO PRN ×3 (06:25→22:05)
[2016-10-23] MEDS: INSULIN REGULAR 100 UNIT in SODIUM CHLORIDE 0.9% 100 ML IV SCH (07:00)
[2016-10-23] MEDS: INSULIN LISPRO (humaLOG) 300 UNIT/3 ML VIAL SQ SCH ×4 (07:03→21:55)
[2016-10-23 07:11] LABS: Basophils % (A) 0 %; CH 31.2; Eosinophils % (A) 0 %; HGB 14.2 gm/dL (13.0-17.5); Luc # (Auto) 0.15; Luc % (Auto) 2; Lymphocytes # (A) 0.7 k/uL (1.0-4.8); Lymphocytes % (A) 6 %; MCH 31.4 pg (25.0-35.0); MCHC 33.1 g/dL (31.0-37.0); MCV 94.9 fL (80.0-100.0); Mean Platelet Volume 10.4; Monocytes # (A) 0.6 k/uL (0-1.0); Monocytes % (A) 6 %; Neutrophils # (A) 8.9 k/uL (1.3-7.7); Neutrophils % (A) 86 %; RBC 4.53 m/uL (4.30-5.90); WBC 10.4 k/uL (3.8-10.6); WBC (Perox) 10.42
[2016-10-23 07:35] LABS: Anion Gap 14 mmol/L; Blood Urea Nitrogen 50 mg/dL (9-20); Calcium 8.6 mg/dL (8.4-10.2); Carbon Dioxide 19 mmol/L (22-30); Chloride 101 mmol/L (98-107); Glucose 140 mg/dL (74-99); Non-African American GFR(MDRD) >60 (>60 ml/min/1.73 sqM); Potassium 4.7 mmol/L (3.5-5.1); Sodium 134 mmol/L (137-145)
[2016-10-23] MEDS: HEPARIN SODIUM,PORCINE 5,000 UNIT/ML 1 ML VIAL SQ SCH ×3 (07:36→23:53)
[2016-10-23] MEDS: BUDESONIDE 1 MG/2 ML NEBU INHALATION SCH ×2 (07:51→20:07)
[2016-10-23] MEDS: IPRATROPIUM-ALBUTEROL 3 ML NEB INHALATION SCH ×4 (07:52→20:09)
[2016-10-23] MEDS: FORMOTEROL FUMARATE 20 MCG/2 ML NEBU INHALATION SCH ×2 (07:52→20:07)
[2016-10-23 08:12] LABS: Glucose,Whole Blood 206 mg/dL (75-99)
[2016-10-23] MEDS: ASPIRIN 81 MG CHEW PO SCH (09:08)
[2016-10-23] MEDS: NICOTINE 21MG/24HR PATCH TRANSDERM SCH (09:08)
[2016-10-23] MEDS: metFORMIN 500 MG TAB PO SCH (09:08)
[2016-10-23] MEDS: FUROSEMIDE 40 MG TAB PO SCH (09:08)
[2016-10-23] MEDS: ATORVASTATIN 20 MG TAB PO SCH (09:08)
[2016-10-23] MEDS: AZITHROMYCIN 500 MG TAB PO SCH (09:08)
--- NOTE | 2016-10-23 10:13 | P.PN ---
Subjective Principal diagnosis: Acute exacerbation of COPD and congestive heart failure. This is a very pleasant 61-year-old gentleman who follows with Dr. Merritt as his primary care physician. He has a history of coronary artery disease with previous coronary artery bypass grafting and with ischemic cardiomyopathy with impaired left ventricular systolic function with estimated ejection fraction of 20%. He is status post AICD placement. He also has a history of diabetes mellitus, hyperlipidemia, hypertension, osteoarthritis and daily alcohol use approximately 6 beers a day. He also has chronic and ongoing nicotine dependence of greater than 40 years and significant chronic obstructive pulmonary disease and he follows with Dr. Iraheta in our office for the same. He is maintained on albuterol and has a nebulizer at home. He was to be on Symbicort but states he has been out of it for some time due to cost. There was concern regarding possible chest mass however a computed tomography scan with contrast on 09/20/2016 revealed no evidence of a pulmonary mass. There are nonspecific noncalcified nodularity. Upper lobe emphysema changes. There was dilatation of the main pulmonary artery.He presented here yesterday with complaints of increasing shortness of breath, cough and congestion. His cough has been nonproductive. He has had chills and night sweats. No significant chest pain, palpitations, lightheadedness or dizziness. No calf pain. He is seen today in consultation on the selective care unit. He is awake and alert in no acute distress. He states his breathing is slightly better today as compared to yesterday but not quite back to his baseline. Arterial blood gases were obtained on 100% FiO2 which revealed a pO2 of 194, pCO2 27, pH 7.42. He did have a T-max of 100.9. Lactic acid 1.9, influenza screen negative, no leukocytosis. Chest x-ray reveals no acute pulmonary process. he is still requiring 10 L of high flow nasal cannula to maintain O2 saturations in the 90s. The patient is seen again today in follow-up on 10/22/2016. He is awake and alert in no acute distress. He is breathing better today as compared to yesterday but not quite back to his baseline. He is still quite dyspneic on minimal exertion. Still bronchospastic and wheezy. He continues to require 8 L of high flow nasal cannula to maintain O2 saturations in the 90s. He is currently afebrile. Patient was reevaluated today on 10/23/2016, remains bronchospastic and wheezy, but overall seems to be feeling better. Labs were reviewed, CBC is normal. BUN is 50 creatinine is 1.04, remains on diuretics. Objective - Vital Signs Vital signs: Vital Signs Temp 96.9 F L 10/23/16 09:08 Pulse 55 L 10/23/16 09:08 Resp 22 10/23/16 09:08 BP 141/78 10/23/16 09:08 Pulse Ox 99 10/23/16 09:08 Intake & Output 10/22/16 10/23/16 10/23/16 18:59 06:59 18:59 Intake Total 449.496 36.388 203.737 Output Total 1275 850 Balance -825.504 -813.612 203.737 Weight 125.7 kg Intake: Intake, IV Titration 31.496 36.388 3.737 Amount Insulin Regular 100 unit 31.496 36.388 3.737 In Sodium Chloride 0.9% 100 ml @ Titrate IV .Q0M [facility] Rx#:[id number] Oral 418 200 Output: Urine 1275 850 Uretheral (Arteaga) 800 Other: Voiding Method Indwelling Catheter Urinal Urinal # Voids 0 - Exam GENERAL EXAM: Alert, active, comfortable in no apparent distress. HEAD: Normocephalic. EYES: Normal reaction of pupils, equal size. NOSE: Clear with pink turbinates. THROAT: No erythema or exudates. NECK: No masses, no JVD. CHEST: No chest wall deformity. LUNGS: Equal air entry with bilateral end expiratory wheeze. Diminished. CVS: S1 and S2 normal with no audible mumurs, regular rhythm. ABDOMEN: No hepatosplenomegaly, normal bowel sounds, no guarding or rigidity. SPINE: No scoliosis or deformity SKIN: No rashes CENTRAL NERVOUS SYSTEM: No focal deficits, tone is normal in all 4 extremities. Extremities: There is 1+ bipedal edema. No clubbing, no cyanosis. Peripheral pulses are intact. - Labs CBC & Chem 7: 10/23/16 06:30 10/23/16 06:26 Labs: Abnormal Lab Results - Last 24 Hours (Table) 10/22/16 10/22/16 10/22/16 Range/Units 11:48 12:57 13:26 Plt Count (150-450) k/uL Neutrophils # (1.3-7.7) k/uL Lymphocytes # (1.0-4.8) k/uL Sodium (137-145) mmol/L Carbon Dioxide (22-30) mmol/L BUN (9-20) mg/dL Glucose (74-99) mg/dL POC Glucose (mg/dL) 282 H 345 H 288 H (75-99) mg/dL 10/22/16 10/22/16 10/22/16 Range/Units 14:02 17:36 18:41 Plt Count (150-450) k/uL Neutrophils # (1.3-7.7) k/uL Lymphocytes # (1.0-4.8) k/uL Sodium (137-145) mmol/L Carbon Dioxide (22-30) mmol/L BUN (9-20) mg/dL Glucose (74-99) mg/dL POC Glucose (mg/dL) 191 H 125 H 185 H (75-99) mg/dL 10/22/16 10/22/16 10/23/16 Range/Units 20:31 22:28 00:47 Plt Count (150-450) k/uL Neutrophils # (1.3-7.7) k/uL Lymphocytes # (1.0-4.8) k/uL Sodium (137-145) mmol/L Carbon Dioxide (22-30) mmol/L BUN (9-20) mg/dL Glucose (74-99) mg/dL POC Glucose (mg/dL) 191 H 170 H 114 H (75-99) mg/dL 10/23/16 10/23/16 10/23/16 Range/Units 02:07 04:14 06:16 Plt Count (150-450) k/uL Neutrophils # (1.3-7.7) k/uL Lymphocytes # (1.0-4.8) k/uL Sodium (137-145) mmol/L Carbon Dioxide (22-30) mmol/L BUN (9-20) mg/dL Glucose (74-99) mg/dL POC Glucose (mg/dL) 147 H 168 H 141 H (75-99) mg/dL 10/23/16 10/23/16 10/23/16 Range/Units 06:26 06:30 08:11 Plt Count 67 L (150-450) k/uL Neutrophils # 8.9 H (1.3-7.7) k/uL Lymphocytes # 0.7 L (1.0-4.8) k/uL Sodium 134 L (137-145) mmol/L Carbon Dioxide 19 L (22-30) mmol/L BUN 50 H (9-20) mg/dL Glucose 140 H (74-99) mg/dL POC Glucose (mg/dL) 206 H (75-99) mg/dL Assessment and Plan Plan: #1 Acute exacerbation of severe chronic obstructive pulmonary disease. #2 Acute hypoxic respiratory failure secondary to above. #3 Chronic and ongoing tobacco dependence. #4 Alcohol use of approximate 6 beers daily. #5 Coronary artery disease with previous coronary artery bypass grafting. #6 Severe ischemic cardiomyopathy with estimated ejection fraction less than 10% , status post AICD placement. #7 Hypertension. #8 Hyperlipidemia. #9 History of medication noncompliance (Symbicort) secondary to cost. #10 Mild troponin leak. #11 Acute renal insufficiency, current creatinine 1.04 Recommendation: Continue bronchodilators, continue IV Solu-Medrol, empiric antibiotics, diuretics, DVT prophylaxis and GI prophylaxis, increase activity as tolerated, discharge planning probably on Tuesday. Time with Patient: Less than 30
[2016-10-23 10:22] LABS: Glucose,Whole Blood 173 mg/dL (75-99)
--- NOTE | 2016-10-23 11:57 | PN ---
DATE OF SERVICE: 10/22/2016 INTERVAL HISTORY: Mr. Colvin is a 61-year-old male with a known history of COPD on home oxygen, coronary artery disease and bypass graft and ejection fraction 10%, status post automatic implantable cardiovascular defibrillator placement, hypertension, hyperlipidemia, alcohol abuse on daily basis and cigarette smoking, came to the hospital with complaints of worsening shortness of breath. Currently breathing status has improved, but still having short of breath with walking and exertion and is on high flow nasal cannula. Pulmonary is following the patient. No acute overnight issues. REVIEW OF SYSTEMS: CONSTITUTIONAL: No fever. No chills. RESPIRATORY: No cough or sputum production. CARDIOVASCULAR: No chest pain or short of breath. ABDOMEN: No nausea, vomiting or abdominal pain. GENITOURINARY: Negative. ENDOCRINE: Negative. PSYCHIATRIC: Negative. SKIN: Negative. All other fourteen-point review of systems negative except as above. Current medications reviewed. PHYSICAL EXAMINATION: A 61-year-old male lying in bed comfortably, awake, alert, oriented x3. Appears to be in no apparent distress. VITALS: Blood pressure is 106/56, pulse is 52, respirations 21, temperature afebrile, pulse ox 99% on 6-L high flow nasal cannula. HEENT: Atraumatic, normocephalic. Neck is supple. No JVD. CVS: S1, S2 heard. No murmurs, no gallop. LUNGS: Bilateral diminished breath sounds. Expiratory wheezing positive. Nonlabored breathing. ABDOMEN: Soft, nontender. Bowel sounds present. BACKEND PYTHON DEVELOPER: Awake, alert, oriented x3. No focal deficit. EXTREMITIES: No edema. Pulses palpable bilaterally. No clubbing or cyanosis. PSYCHIATRIC: Cooperative, nonsuicidal. SKIN: No rash or skin lesions. LABORATORY DATA: WBC 8.6, hemoglobin 14.3, platelets 55. Sodium 128, potassium 5.2, chloride 97, bicarb is 18, BUN 46, creatinine 1.15. Blood sugar is 185 and calcium 8.6. IMPRESSION: 1. Acute chronic obstructive pulmonary disease exacerbation. 2. Acute respiratory failure secondary to chronic obstructive pulmonary disease exacerbation. 3. Acute on chronic systolic heart failure. Ejection fraction 10%. 4. Cardiomyopathy with ejection fraction of 10%. 5. Hypovolemic hyponatremia. 6. Alcohol abuse of 6 to 8 beers per day. 7. Thrombocytopenia. 8. Elevated troponin/troponin leak. 9. History of coronary artery disease, status post bypass graft. 10. Type 2 diabetes mellitus with HbA1c of 7.0. 11. Hypertension. 12. Hyperlipidemia. 13. Degenerative joint disease. 14. Deep venous thrombosis prophylaxis with heparin subcu. DESCRIPTION AND PLAN: Patient will be continued on breathing treatments, steroids and antibiotics in the form of azithromycin. Continue to monitor renal function and continue to monitor platelet count. Will continue the current management and follow closely. Further recommendations based on clinical course.
[2016-10-23 12:07] LABS: Glucose,Whole Blood 104 mg/dL (75-99)
[2016-10-23 13:26] LABS: Glucose,Whole Blood 146 mg/dL (75-99)
[2016-10-23 16:37] LABS: Glucose,Whole Blood 94 mg/dL (75-99)
[2016-10-23] MEDS ORDERED: INSULIN LISPRO (humaLOG) 300 UNIT/3 ML VIAL SQ SCH (17:30)
[2016-10-23] MEDS: POLYETHYLENE GLYCOL 3350 17 GM POWD.PACK PO PRN (17:33)
[2016-10-23 21:18] LABS: Glucose,Whole Blood 212 mg/dL (75-99)
[2016-10-23] MEDS: INSULIN GLARGINE 100 UNIT/ML 10 ML VIAL SQ SCH (22:01)
[2016-10-24] MEDS: IPRATROPIUM-ALBUTEROL 3 ML NEB INHALATION PRN ×2 (00:05→03:39)
[2016-10-24 06:00] LABS: Glucose,Whole Blood 232 mg/dL (75-99)
[2016-10-24] MEDS: methylPREDNISolone SOD SUCCI 125 MG/2 ML VIAL IV SCH ×4 (06:40→21:29)
[2016-10-24] MEDS: INSULIN LISPRO (humaLOG) 300 UNIT/3 ML VIAL SQ SCH ×7 (07:31→21:29)
[2016-10-24] MEDS: PANTOPRAZOLE 40 MG TABLET PO SCH (07:32)
[2016-10-24] MEDS: FORMOTEROL FUMARATE 20 MCG/2 ML NEBU INHALATION SCH ×2 (08:50→19:49)
[2016-10-24] MEDS: IPRATROPIUM-ALBUTEROL 3 ML NEB INHALATION SCH ×4 (08:50→19:49)
[2016-10-24] MEDS: BUDESONIDE 1 MG/2 ML NEBU INHALATION SCH ×2 (08:50→19:50)
[2016-10-24] MEDS: FUROSEMIDE 40 MG TAB PO SCH (09:53)
[2016-10-24] MEDS: ASPIRIN 81 MG CHEW PO SCH (09:53)
[2016-10-24] MEDS: DOCUSATE 100 MG CAP PO SCH (09:53)
[2016-10-24] MEDS: metFORMIN 500 MG TAB PO SCH (09:53)
[2016-10-24] MEDS: AZITHROMYCIN 500 MG TAB PO SCH (09:53)
[2016-10-24] MEDS: ATORVASTATIN 20 MG TAB PO SCH (09:53)
[2016-10-24] MEDS: HEPARIN SODIUM,PORCINE 5,000 UNIT/ML 1 ML VIAL SQ SCH ×3 (09:54→21:29)
--- NOTE | 2016-10-24 10:55 | P.PN ---
Subjective Principal diagnosis: Acute exacerbation of COPD and congestive heart failure. This is a very pleasant 61-year-old gentleman who follows with Dr. Merritt as his primary care physician. He has a history of coronary artery disease with previous coronary artery bypass grafting and with ischemic cardiomyopathy with impaired left ventricular systolic function with estimated ejection fraction of 20%. He is status post AICD placement. He also has a history of diabetes mellitus, hyperlipidemia, hypertension, osteoarthritis and daily alcohol use approximately 6 beers a day. He also has chronic and ongoing nicotine dependence of greater than 40 years and significant chronic obstructive pulmonary disease and he follows with Dr. Iraheta in our office for the same. He is maintained on albuterol and has a nebulizer at home. He was to be on Symbicort but states he has been out of it for some time due to cost. There was concern regarding possible chest mass however a computed tomography scan with contrast on 09/20/2016 revealed no evidence of a pulmonary mass. There are nonspecific noncalcified nodularity. Upper lobe emphysema changes. There was dilatation of the main pulmonary artery.He presented here yesterday with complaints of increasing shortness of breath, cough and congestion. His cough has been nonproductive. He has had chills and night sweats. No significant chest pain, palpitations, lightheadedness or dizziness. No calf pain. He is seen today in consultation on the selective care unit. He is awake and alert in no acute distress. He states his breathing is slightly better today as compared to yesterday but not quite back to his baseline. Arterial blood gases were obtained on 100% FiO2 which revealed a pO2 of 194, pCO2 27, pH 7.42. He did have a T-max of 100.9. Lactic acid 1.9, influenza screen negative, no leukocytosis. Chest x-ray reveals no acute pulmonary process. he is still requiring 10 L of high flow nasal cannula to maintain O2 saturations in the 90s. The patient is seen again today in follow-up on 10/22/2016. He is awake and alert in no acute distress. He is breathing better today as compared to yesterday but not quite back to his baseline. He is still quite dyspneic on minimal exertion. Still bronchospastic and wheezy. He continues to require 8 L of high flow nasal cannula to maintain O2 saturations in the 90s. He is currently afebrile. Patient was reevaluated today on 10/23/2016, remains bronchospastic and wheezy, but overall seems to be feeling better. Labs were reviewed, CBC is normal. BUN is 50 creatinine is 1.04, remains on diuretics. Reevaluated today on 10/24/2016 basically about the same, continues to have intermittent cough wheezing shortness of breath. Of course improved compared to baseline, but not quite ready for any discharge planning. Objective - Vital Signs Vital signs: Vital Signs Temp 97.1 F L 10/24/16 09:54 Pulse 50 L 10/24/16 09:54 Resp 22 10/24/16 09:54 BP 169/76 10/24/16 09:54 Pulse Ox 97 10/24/16 09:54 Intake & Output 10/23/16 10/24/16 10/24/16 18:59 06:59 18:59 Intake Total 819.820 500 240 Output Total 300 1575 Balance 519.820 -1075 240 Weight 127.7 kg Intake: Intake, IV Titration 19.820 Amount Insulin Regular 100 unit 19.820 In Sodium Chloride 0.9% 100 ml @ Titrate IV .Q0M [facility] Rx#:[id number] Oral 800 500 240 Output: Urine 300 1575 Other: Voiding Method Urinal Urinal Urinal - Exam GENERAL EXAM: Alert, active, comfortable in no apparent distress. HEAD: Normocephalic. EYES: Normal reaction of pupils, equal size. NOSE: Clear with pink turbinates. THROAT: No erythema or exudates. NECK: No masses, no JVD. CHEST: No chest wall deformity. LUNGS: Equal air entry with bilateral end expiratory wheeze. Diminished. CVS: S1 and S2 normal with no audible mumurs, regular rhythm. ABDOMEN: No hepatosplenomegaly, normal bowel sounds, no guarding or rigidity. SPINE: No scoliosis or deformity SKIN: No rashes CENTRAL NERVOUS SYSTEM: No focal deficits, tone is normal in all 4 extremities. Extremities: There is 1+ bipedal edema. No clubbing, no cyanosis. Peripheral pulses are intact. - Labs CBC & Chem 7: 10/23/16 06:30 10/23/16 06:26 Labs: Abnormal Lab Results - Last 24 Hours (Table) 10/23/16 10/23/16 10/23/16 Range/Units 12:05 13:24 21:17 POC Glucose (mg/dL) 104 H 146 H 212 H (75-99) mg/dL 10/24/16 Range/Units 05:59 POC Glucose (mg/dL) 232 H (75-99) mg/dL Assessment and Plan Plan: #1 Acute exacerbation of severe chronic obstructive pulmonary disease. #2 Acute hypoxic respiratory failure secondary to above. #3 Chronic and ongoing tobacco dependence. #4 Alcohol use of approximate 6 beers daily. #5 Coronary artery disease with previous coronary artery bypass grafting. #6 Severe ischemic cardiomyopathy with estimated ejection fraction less than 10% , status post AICD placement. #7 Hypertension. #8 Hyperlipidemia. #9 History of medication noncompliance (Symbicort) secondary to cost. #10 Mild troponin leak. #11 Acute renal insufficiency, current creatinine 1.04 Recommendation: Continue bronchodilators, continue IV Solu-Medrol, empiric antibiotics, diuretics, DVT prophylaxis and GI prophylaxis, increase activity as tolerated, discharge planning probably in the next 24-48 hours. And follow- up on outpatient basis with Dr. Iraheta. Time with Patient: Less than 30
[2016-10-24] MEDS: NICOTINE 21MG/24HR PATCH TRANSDERM SCH (11:16)
[2016-10-24 12:00] LABS: Glucose,Whole Blood 252 mg/dL (75-99)
[2016-10-24 12:06] LABS: Anion Gap 13 mmol/L; Blood Urea Nitrogen 48 mg/dL (9-20); Calcium 8.8 mg/dL (8.4-10.2); Carbon Dioxide 22 mmol/L (22-30); Chloride 98 mmol/L (98-107); Glucose 250 mg/dL (74-99); Non-African American GFR(MDRD) >60 (>60 ml/min/1.73 sqM); Potassium 5.1 mmol/L (3.5-5.1); Sodium 133 mmol/L (137-145)
[2016-10-24 12:08] LABS: Basophils % (A) 0 %; CH 31.3; CHCM 33.2; Eosinophils % (A) 0 %; HCT 42.1 % (39.0-53.0); HDW 2.86; HGB 13.8 gm/dL (13.0-17.5); Luc # (Auto) 0.13; Luc % (Auto) 1; Lymphocytes # (A) 0.5 k/uL (1.0-4.8); Lymphocytes % (A) 5 %; MCH 31.1 pg (25.0-35.0); MCHC 32.8 g/dL (31.0-37.0); MCV 94.6 fL (80.0-100.0); Monocytes # (A) 0.7 k/uL (0-1.0); Monocytes % (A) 7 %; Neutrophils # (A) 8.7 k/uL (1.3-7.7); Neutrophils % (A) 87 %; RBC 4.45 m/uL (4.30-5.90); WBC 10.1 k/uL (3.8-10.6); WBC (Perox) 10.44
[2016-10-24 12:37] LABS: Hemoglobin A1C 6.9 % (4.2-6.1)
[2016-10-24 16:57] LABS: Glucose,Whole Blood 192 mg/dL (75-99)
[2016-10-24 21:13] LABS: Glucose,Whole Blood 228 mg/dL (75-99)
[2016-10-24] MEDS: INSULIN GLARGINE 100 UNIT/ML 10 ML VIAL SQ SCH (21:28)
[2016-10-25 06:11] LABS: Glucose,Whole Blood 242 mg/dL (75-99)
[2016-10-25] MEDS: methylPREDNISolone SOD SUCCI 125 MG/2 ML VIAL IV SCH ×4 (07:01→22:59)
[2016-10-25] MEDS: INSULIN LISPRO (humaLOG) 300 UNIT/3 ML VIAL SQ SCH ×7 (07:01→21:24)
[2016-10-25] MEDS: PANTOPRAZOLE 40 MG TABLET PO SCH (07:02)
[2016-10-25] MEDS: ASPIRIN 81 MG CHEW PO SCH (08:44)
[2016-10-25] MEDS: FUROSEMIDE 40 MG TAB PO SCH (08:44)
[2016-10-25] MEDS: AZITHROMYCIN 500 MG TAB PO SCH (08:44)
[2016-10-25] MEDS: HEPARIN SODIUM,PORCINE 5,000 UNIT/ML 1 ML VIAL SQ SCH ×3 (08:44→21:24)
[2016-10-25] MEDS: DOCUSATE 100 MG CAP PO SCH (08:44)
[2016-10-25] MEDS: NICOTINE 21MG/24HR PATCH TRANSDERM SCH (08:45)
[2016-10-25] MEDS: metFORMIN 500 MG TAB PO SCH (08:45)
[2016-10-25] MEDS: ALPRAZolam 0.25 MG TAB PO PRN (08:54)
[2016-10-25] MEDS: ATORVASTATIN 20 MG TAB PO SCH (08:58)
[2016-10-25] MEDS: BUDESONIDE 1 MG/2 ML NEBU INHALATION SCH ×2 (09:05→20:43)
[2016-10-25] MEDS: FORMOTEROL FUMARATE 20 MCG/2 ML NEBU INHALATION SCH ×2 (09:05→20:43)
[2016-10-25] MEDS: IPRATROPIUM-ALBUTEROL 3 ML NEB INHALATION SCH ×4 (09:05→20:43)
--- NOTE | 2016-10-25 09:49 | CDI ---
In responding to this query, please exercise your independent professional judgment. The [facility] Coding Staff and Clinical Documentation Specialists appreciate your assistance in clarifying documentation, maintaining compliance with coding guidelines, accurately documenting patients condition and capturing severity of illness. The fact that a question is asked does not imply that any particular answer is desired or expected. Communication forms are a method of clarifying documentation and are not made part of the Legal Health Record. Thank you in advance for your clarification. Last Revision, June 2015 Spencer Flores [address] [place] [address] Documentation Clarification Form Date: 10/21/2016 3:18:00 PM From: Tesha Perry, SIDNEY, CCDS Admit Date: 10/20/2016 10:11:00 AM Patient Name: Edgar Colvin Visit Number: [id number] Discharge Date: Dr. Alesha Tompkins: 61 yo male, presented with SOB & syncope with stable BUN & Cr: 15, 1.01. GFR > 60, per pulmonary documentation: acute renal insufficiency. Diagnosed with Acute exac COPD, current smoker. History/Risk Factors: CAD sp CABG, Ischemic Cardiomyopathy with AICD, Hypertension, and Diabetes Mellitus II. Clinical Indicators: Current BUN 32 Current Cr 1.36 Current GFR: 53 Treatment: Nebulizer updrafts, IV fluid bolus, IV Steroids, IV Zosyn, IV Rocephin, High flow O2 10Lnc. Consults: Pulmonary In order to capture the severity of condition, please clarify if the condition signifies: Acute renal failure Please specify (if known): Cortical, Medullary, or Tubular Necrosis? Acute kidney injury Acute on chronic renal failure Chronic renal failure, please stage Chronic kidney disease (CKD) and please stage o Stage 1 GFR >90 o Stage 2 GFR 60-89 o Stage 3 GFR 30-59 o Stage 4 GFR 15-29 o Stage 5 GFR <15 o ESRD Unable to determine Other, specify Please document in your progress notes and discharge summary in order to capture severity of illness and risk of mortality. Include clinical findings that support your diagnosis. FYI: Press F11 to launch patient chart. Place X here if this finding has no clinical significance, is not applicable or if you are not able to provide any additional documentation. Thank You. BARAK
--- NOTE | 2016-10-25 11:41 | PN ---
DATE OF SERVICE: 10/24/2016 INTERVAL HISTORY: Mr. Colvin is a 61-year-old with known history of chronic obstructive pulmonary disease, not on home oxygen, coronary artery bypass graft ejection fraction 10% status post AICD and hypertension, hyperlipidemia and multiple other medical problems including cigarette smoking, admitted to the hospital with worsening short of breath, currently being treated for acute COPD exacerbation, patient symptomatically slightly worse now, requiring a significant amount of oxygen and decreased air entry bilaterally. Patient is symptomatically improved now. No acute overnight issues. Patient is still having low platelet count. REVIEW OF SYSTEMS: CONSTITUTIONAL: No fever, no chills. RESPIRATORY: No cough or sputum production. No worsening short of breath. CARDIOVASCULAR: No chest pain. No worsening shortness of breath. No leg swelling. ABDOMEN: No nausea, vomiting or abdominal pain. GENITOURINARY: Negative. ENDOCRINE: Negative. PSYCHIATRY: Negative. SKIN: Negative. MUSCULOSKELETAL: Negative. All other 14 point review of systems negative except as above. Current medications reviewed. PHYSICAL EXAMINATION: A 61 -year-old male lying in bed comfortably. Awake, alert and oriented times three. The patient appears to be in no apparent distress. VITAL SIGNS: Blood pressure is 157/75, pulse is 53, respirations 20, temperature afebrile. Pulse ox is at 99% on high flow nasal cannula. HEENT: Atraumatic, normocephalic. Neck is supple. No JVD. CVS: S1, S2 heard. No murmurs, no gallops. LUNGS: Bilateral decreased air entry. Diffuse wheezing positive. Nonlabored breathing. Abdomen soft, nontender. Bowel sounds present. CENTRAL NERVOUS SYSTEM: Awake, alert and oriented x3. No focal deficit. EXTREMITIES: No edema. Pulses palpable bilaterally. No clubbing or cyanosis. PSYCHIATRIC: Cooperative. Nonsuicidal. LABORATORY DATA: WBC 10.4, hemoglobin 14.2, platelets 67. Sodium 134, potassium 4.7, chloride 101, bicarb is 19, BUN 50, creatinine 1.04. Calcium 8.6. IMPRESSION: 1. Acute chronic obstructive pulmonary disease exacerbation. 2. Acute respiratory failure secondary to chronic obstructive pulmonary disease requiring BiPAP on admission, improved now. 3. Acute on chronic congestive heart failure with systolic dysfunction; ejection fraction 10 percent. 4. Cardiomyopathy ischemic. 5. Coronary artery disease, status post coronary artery bypass graft. 6. Hypovolemic hyponatremia, improved. 7. Alcohol abuse. 8. Nicotine addiction. 9. Thrombocytopenia secondary to alcohol use. 10. Type 2 diabetes mellitus, HbA1C 7.0. 11. Hypertension. 12. Hyperlipidemia. 13. Degenerative joint disease. 14. Deep venous thrombosis prophylaxis with heparin subcu. DISCUSSION AND PLAN: Continue on current breathing treatments and steroids and continue the oxygen therapy. Continue the current management and follow up closely. Further recommendations based on clinical course. The patient is improving symptomatically.
[2016-10-25 11:49] LABS: Glucose,Whole Blood 304 mg/dL (75-99)
--- NOTE | 2016-10-25 12:06 | PN ---
DATE OF SERVICE: 10/24/2016 INTERVAL HISTORY: Mr. Colvin is a 61-year-old male with known history of COPD, not on home oxygen and coronary artery disease and cardiomyopathy. Admitted to the hospital with worsening short of breath, currently being treated for acute COPD exacerbation. Patient symptomatically much improved today, requiring less oxygen as compared to yesterday, currently on 3 L of nasal cannula, saturating well. No fever. No chills. No acute overnight issues. REVIEW OF SYSTEMS: CONSTITUTIONAL: No fever. No chills. RESPIRATORY: No cough or sputum production. CARDIOVASCULAR: No chest pain or worsening short of breath. No leg swelling. ABDOMEN: No nausea, vomiting or abdominal pain. GENITOURINARY: Negative. ENDOCRINE: Negative. PSYCHIATRY: Negative. SKIN: Negative. All other 14-point review of systems negative except as above. CURRENT MEDICATIONS: Reviewed. PHYSICAL EXAM: A 61-year-old male lying in bed, comfortable, alert, oriented x3. Patient in no apparent distress. VITALS: Blood pressure is 156/74, pulse is 53, respirations 20, temperature afebrile, pulse ox 99% on 3 L nasal cannula. HEENT: Atraumatic, normocephalic. Neck is supple, no JVD. CVS EXAM: S1, S2 heard. No murmurs, no gallop. LUNGS: Bilateral decreased air entry, improved compared to yesterday and expiratory wheezing positive, which is also improved. Nonlabored breathing. Abdomen is soft, nontender, bowel sounds present. NURSING DIRECTOR: Awake, alert, oriented x3. No focal deficits. EXTREMITIES: No edema, peripheral pulses are felt. No clubbing or cyanosis. PSYCHIATRIC: Cooperative. LABORATORY DATA: WBC is 10.1, hemoglobin is 13.8, platelets 86. Sodium 133, potassium 4.1, chloride 98, bicarb is 22. BUN 48, creatinine 1.02, blood sugar is 250, calcium 8.8. IMPRESSION: 1. Acute chronic obstructive pulmonary disease exacerbation. 2. Acute hypoxic respiratory failure secondary to chronic obstructive pulmonary disease, was on BiPAP on admission. 3. Acute on chronic congestive heart failure with systolic dysfunction, ejection fraction 10%, improved now. 4. Cardiomyopathy. 5. Status post AICD placement. 6. Hypovolemic hyponatremia. 7. Alcohol abuse. 8. Nicotine addiction. 9. Thrombocytopenia, improving. 10. Elevated troponin leak on admission. 11. History of coronary artery disease, status post coronary artery bypass graft. 12. Hyperglycemia with type 2 diabetes mellitus, uncontrolled, HBA1c 7.0. 13. Hypertension. 14. Hyperlipidemia. 15. Degenerative joint disease. 16. Deep venous thrombosis prophylaxis with heparin. DISCUSSION AND PLAN: Patient will be continued on ( ) medical treatments and continue with the current management. Continue with the antibiotic as well. Follow up closely. Further recommendations based on the clinical course. Patient is clinically improving. Pulmonary is on board.
--- NOTE | 2016-10-25 12:15 | P.PN ---
Subjective Principal diagnosis: COPD exacerbation This is a very pleasant 61-year-old gentleman who follows with Dr. Merritt as his primary care physician. He has a history of coronary artery disease with previous coronary artery bypass grafting and with ischemic cardiomyopathy with impaired left ventricular systolic function with estimated ejection fraction of 20%. He is status post AICD placement. He also has a history of diabetes mellitus, hyperlipidemia, hypertension, osteoarthritis and daily alcohol use approximately 6 beers a day. He also has chronic and ongoing nicotine dependence of greater than 40 years and significant chronic obstructive pulmonary disease and he follows with Dr. Iraheta in our office for the same. He is maintained on albuterol and has a nebulizer at home. He was to be on Symbicort but states he has been out of it for some time due to cost. There was concern regarding possible chest mass however a computed tomography scan with contrast on 09/20/2016 revealed no evidence of a pulmonary mass. There are nonspecific noncalcified nodularity. Upper lobe emphysema changes. There was dilatation of the main pulmonary artery.He presented here yesterday with complaints of increasing shortness of breath, cough and congestion. His cough has been nonproductive. He has had chills and night sweats. No significant chest pain, palpitations, lightheadedness or dizziness. No calf pain. He is seen today in consultation on the selective care unit. He is awake and alert in no acute distress. He states his breathing is slightly better today as compared to yesterday but not quite back to his baseline. Arterial blood gases were obtained on 100% FiO2 which revealed a pO2 of 194, pCO2 27, pH 7.42. He did have a T-max of 100.9. Lactic acid 1.9, influenza screen negative, no leukocytosis. Chest x-ray reveals no acute pulmonary process. he is still requiring 10 L of high flow nasal cannula to maintain O2 saturations in the 90s. The patient is seen again today in follow-up on 10/22/2016. He is awake and alert in no acute distress. He is breathing better today as compared to yesterday but not quite back to his baseline. He is still quite dyspneic on minimal exertion. Still bronchospastic and wheezy. He continues to require 8 L of high flow nasal cannula to maintain O2 saturations in the 90s. He is currently afebrile. Patient was reevaluated today on 10/23/2016, remains bronchospastic and wheezy, but overall seems to be feeling better. Labs were reviewed, CBC is normal. BUN is 50 creatinine is 1.04, remains on diuretics. Reevaluated today on 10/24/2016 basically about the same, continues to have intermittent cough wheezing shortness of breath. Of course improved compared to baseline, but not quite ready for any discharge planning. The patient was seen again today 10/25/2016 in follow-up on the selective care unit. He is awake and alert in no acute distress. The patient does remain quite bronchospastic and wheezy. He has dyspnea on minimal exertion. He has been slow to progress. Objective - Vital Signs Vital signs: Vital Signs Temp 97 F L 10/25/16 08:00 Pulse 62 10/25/16 12:08 Resp 22 10/25/16 08:00 BP 138/70 10/25/16 08:00 Pulse Ox 100 10/25/16 08:00 Intake & Output 10/24/16 10/25/16 10/25/16 18:59 06:59 18:59 Intake Total 920 250 100 Output Total 350 700 500 Balance 570 -450 -400 Weight 127.5 kg Intake: IV 0 NS 0 Oral 920 250 100 Output: Urine 350 700 500 Other: Voiding Method Urinal # Voids 1 - Exam GENERAL EXAM: Alert, active, comfortable in no apparent distress. HEAD: Normocephalic. EYES: Normal reaction of pupils, equal size. NOSE: Clear with pink turbinates. THROAT: No erythema or exudates. NECK: No masses, no JVD. CHEST: No chest wall deformity. LUNGS: Equal air entry with bilateral end expiratory wheeze. Diminished. CVS: S1 and S2 normal with no audible mumurs, regular rhythm. ABDOMEN: No hepatosplenomegaly, normal bowel sounds, no guarding or rigidity. SPINE: No scoliosis or deformity SKIN: No rashes CENTRAL NERVOUS SYSTEM: No focal deficits, tone is normal in all 4 extremities. Extremities: There is trace peripheral edema. No clubbing, no cyanosis. Peripheral pulses are intact. - Labs CBC & Chem 7: 10/24/16 11:16 10/24/16 11:16 Labs: Abnormal Lab Results - Last 24 Hours (Table) 10/23/16 10/24/16 10/24/16 Range/Units 06:30 11:16 16:42 Plt Count 86 L (150-450) k/uL Neutrophils # 8.7 H (1.3-7.7) k/uL Lymphocytes # 0.5 L (1.0-4.8) k/uL POC Glucose (mg/dL) 192 H (75-99) mg/dL Hemoglobin A1c 6.9 H (4.2-6.1) % 10/24/16 10/25/16 10/25/16 Range/Units 21:11 06:10 11:47 Plt Count (150-450) k/uL Neutrophils # (1.3-7.7) k/uL Lymphocytes # (1.0-4.8) k/uL POC Glucose (mg/dL) 228 H 242 H 304 H (75-99) mg/dL Hemoglobin A1c (4.2-6.1) % Assessment and Plan Plan: impression: #1 Acute exacerbation of severe chronic obstructive pulmonary disease. #2 Acute hypoxic respiratory failure secondary to above. #3 Chronic and ongoing tobacco dependence. #4 Alcohol use of approximate 6 beers daily. #5 Coronary artery disease with previous coronary artery bypass grafting. #6 Severe ischemic cardiomyopathy with estimated ejection fraction less than 10% , status post AICD placement. #7 Hypertension. #8 Hyperlipidemia. #9 History of medication noncompliance (Symbicort) secondary to cost. #10 Mild troponin leak. #11 Acute renal insufficiency, current creatinine 1.36. Plan: The patient was seen and evaluated by Dr. Walker. We will continue with bronchodilators 4 times a day and when necessary, Pulmicort and Perforomist inhalations twice a day. We'll continue with IV Solu-Medrol 60 mg every 6 hours. He is on empiric antibiotics in the form of azithromycin. He is being diuresed with 40 mg of Lasix daily as well. He is on heparin subcutaneous for DVT prophylaxis and Protonix for GI prophylaxis. We'll increase his activity as tolerated. We'll continue to follow. The patient has again been educated regarding the importance of complete smoking cessation and a NicoDerm patch remains in place. We will increase his activity as tolerated. We'll continue to follow.
[2016-10-25] MEDS: POLYETHYLENE GLYCOL 3350 17 GM POWD.PACK PO PRN (14:17)
[2016-10-25 16:28] LABS: Potassium 4.9 mmol/L (3.5-5.1)
[2016-10-25 16:39] LABS: Glucose,Whole Blood 160 mg/dL (75-99)
[2016-10-25 21:16] LABS: Glucose,Whole Blood 189 mg/dL (75-99)
[2016-10-25] MEDS: INSULIN GLARGINE 100 UNIT/ML 10 ML VIAL SQ SCH (21:27)
[2016-10-26 06:17] LABS: Glucose,Whole Blood 245 mg/dL (75-99)
[2016-10-26] MEDS: PANTOPRAZOLE 40 MG TABLET PO SCH (06:21)
[2016-10-26] MEDS: methylPREDNISolone SOD SUCCI 125 MG/2 ML VIAL IV SCH ×4 (06:21→22:58)
[2016-10-26 06:42] LABS: Basophils % (A) 0 %; CH 31.5; CHCM 33.8; Eosinophils % (A) 0 %; HCT 42.5 % (39.0-53.0); HDW 2.83; HGB 14.1 gm/dL (13.0-17.5); Luc # (Auto) 0.17; Luc % (Auto) 2; Lymphocytes # (A) 0.6 k/uL (1.0-4.8); Lymphocytes % (A) 6 %; MCHC 33.2 g/dL (31.0-37.0); MCV 93.5 fL (80.0-100.0); Mean Platelet Volume 9.4; Monocytes # (A) 0.7 k/uL (0-1.0); Monocytes % (A) 6 %; Neutrophils # (A) 9.2 k/uL (1.3-7.7); Neutrophils % (A) 86 %; RBC 4.54 m/uL (4.30-5.90); WBC 10.7 k/uL (3.8-10.6); WBC (Perox) 11.47
[2016-10-26 06:43] LABS: Anion Gap 10 mmol/L; Blood Urea Nitrogen 44 mg/dL (9-20); Calcium 8.6 mg/dL (8.4-10.2); Carbon Dioxide 27 mmol/L (22-30); Chloride 95 mmol/L (98-107); Glucose 231 mg/dL (74-99); Non-African American GFR(MDRD) >60 (>60 ml/min/1.73 sqM); Potassium 5.5 mmol/L (3.5-5.1); Sodium 132 mmol/L (137-145)
[2016-10-26] MEDS: INSULIN LISPRO (humaLOG) 300 UNIT/3 ML VIAL SQ SCH ×7 (06:57→21:20)
[2016-10-26] MEDS: ATORVASTATIN 20 MG TAB PO SCH (08:16)
[2016-10-26] MEDS: DOCUSATE 100 MG CAP PO SCH (08:16)
[2016-10-26] MEDS: ASPIRIN 81 MG CHEW PO SCH (08:16)
[2016-10-26] MEDS: FUROSEMIDE 40 MG TAB PO SCH (08:16)
[2016-10-26] MEDS: AZITHROMYCIN 500 MG TAB PO SCH (08:16)
[2016-10-26] MEDS: HEPARIN SODIUM,PORCINE 5,000 UNIT/ML 1 ML VIAL SQ SCH ×3 (08:17→22:58)
[2016-10-26] MEDS: NICOTINE 21MG/24HR PATCH TRANSDERM SCH (08:18)
[2016-10-26] MEDS: metFORMIN 500 MG TAB PO SCH (08:22)
[2016-10-26] MEDS: IPRATROPIUM-ALBUTEROL 3 ML NEB INHALATION SCH ×4 (08:54→19:44)
[2016-10-26] MEDS: BUDESONIDE 1 MG/2 ML NEBU INHALATION SCH ×2 (08:54→19:44)
[2016-10-26] MEDS: FORMOTEROL FUMARATE 20 MCG/2 ML NEBU INHALATION SCH ×2 (08:54→19:44)
--- NOTE | 2016-10-26 10:46 | PN ---
DATE OF SERVICE: 10/25/2016 INTERVAL HISTORY: Mr. Colvin is a 61-year-old male with known history of chronic obstructive pulmonary disease, not on home oxygen and coronary artery disease with cardiomyopathy, admitted to the hospital with worsening short of breath, currently being treated for COPD exacerbation. Patient is symptomatically improving, but slowly. Still requiring O2 therapy. ( ) Patient said that breathing is improving. No complaints of fever, chills. No chest pain or worsening shortness of breath. No acute overnight issues today. Complete review of systems negative except as above. Current medications reviewed. PHYSICAL EXAMINATION: A 61-year-old male sitting on the bed comfortably, awake, alert and oriented x3, appears to be in no apparent distress. VITALS: Blood pressure 141/72, pulse is 57, respirations 18, temperature afebrile, pulse ox 96% on room air. HEENT: Atraumatic, normocephalic. Neck is supple. No JVD. CVS: S1, S2 heard. No murmurs, no gallop, no rub. LUNGS: Bilateral air entry is present. Rhonchi and expiratory wheezing positive. Nonlabored breathing. ABDOMEN: Soft, nontender. Bowel sounds are present. ENVIRONMENTAL HEALTH NURSE: Awake, alert, oriented x3. No focal neurologic deficit. Cranial nerves grossly intact. EXTREMITIES: No edema. Pulses palpable bilaterally. No clubbing or cyanosis. PSYCHIATRIC: Cooperative. LABORATORY DATA: Reviewed. IMPRESSION: 1. Chronic obstructive pulmonary disease exacerbation. 2. Acute hypoxic respiratory failure secondary to chronic obstructive pulmonary disease exacerbation requiring BiPAP on admission. Currently on nasal cannula. 3. Acute on chronic congestive heart failure with systolic dysfunction with ejection fraction 10% improved now. 4. Cardiomyopathy, status post AICD placement. 5. Hypovolemic hyponatremia. 6. Alcohol abuse history. 7. Nicotine addiction. 8. Thrombocytopenia. 9. Troponin leak on admission. 10. History of coronary artery disease, status post bypass graft. 11. Hyperglycemia secondary to steroids. 12. Type 2 diabetes mellitus, uncontrolled. Hb1Ac 7.0. 13. Hypertension. 14. Hyperlipidemia. 15. Degenerative joint disease. 16. Deep venous thrombosis prophylaxis with heparin subcu. DISCUSSION AND PLAN: Patient will continue current management including steroids and breathing treatments and continue the O2 therapy and gradually titrate down to room air. The patient may need home oxygen. The patient will need home initially on discharge. Pulmonary is on board. Continue the current management. Further recommendations based on the clinical course. Patient is improving slowly.
[2016-10-26 11:28] LABS: Glucose,Whole Blood 216 mg/dL (75-99)
--- NOTE | 2016-10-26 14:22 | P.PN ---
Subjective Principal diagnosis: COPD exacerbation This is a very pleasant 61-year-old gentleman who follows with Dr. Merritt as his primary care physician. He has a history of coronary artery disease with previous coronary artery bypass grafting and with ischemic cardiomyopathy with impaired left ventricular systolic function with estimated ejection fraction of 20%. He is status post AICD placement. He also has a history of diabetes mellitus, hyperlipidemia, hypertension, osteoarthritis and daily alcohol use approximately 6 beers a day. He also has chronic and ongoing nicotine dependence of greater than 40 years and significant chronic obstructive pulmonary disease and he follows with Dr. Iraheta in our office for the same. He is maintained on albuterol and has a nebulizer at home. He was to be on Symbicort but states he has been out of it for some time due to cost. There was concern regarding possible chest mass however a computed tomography scan with contrast on 09/20/2016 revealed no evidence of a pulmonary mass. There are nonspecific noncalcified nodularity. Upper lobe emphysema changes. There was dilatation of the main pulmonary artery.He presented here yesterday with complaints of increasing shortness of breath, cough and congestion. His cough has been nonproductive. He has had chills and night sweats. No significant chest pain, palpitations, lightheadedness or dizziness. No calf pain. He is seen today in consultation on the selective care unit. He is awake and alert in no acute distress. He states his breathing is slightly better today as compared to yesterday but not quite back to his baseline. Arterial blood gases were obtained on 100% FiO2 which revealed a pO2 of 194, pCO2 27, pH 7.42. He did have a T-max of 100.9. Lactic acid 1.9, influenza screen negative, no leukocytosis. Chest x-ray reveals no acute pulmonary process. he is still requiring 10 L of high flow nasal cannula to maintain O2 saturations in the 90s. The patient is seen again today in follow-up on 10/22/2016. He is awake and alert in no acute distress. He is breathing better today as compared to yesterday but not quite back to his baseline. He is still quite dyspneic on minimal exertion. Still bronchospastic and wheezy. He continues to require 8 L of high flow nasal cannula to maintain O2 saturations in the 90s. He is currently afebrile. Patient was reevaluated today on 10/23/2016, remains bronchospastic and wheezy, but overall seems to be feeling better. Labs were reviewed, CBC is normal. BUN is 50 creatinine is 1.04, remains on diuretics. Reevaluated today on 10/24/2016 basically about the same, continues to have intermittent cough wheezing shortness of breath. Of course improved compared to baseline, but not quite ready for any discharge planning. The patient was seen again today 10/25/2016 in follow-up on the selective care unit. He is awake and alert in no acute distress. The patient does remain quite bronchospastic and wheezy. He has dyspnea on minimal exertion. He has been slow to progress. The patient is seen again today 10/26/2016 in follow-up. He is awake and alert in no acute distress. He's been up ambulating up and down the hallway and maintaining O2 saturations in the low 90s. He is finally feeling quite a bit better. He is anxious to go home. Objective - Vital Signs Vital signs: Vital Signs Temp 97.6 F 10/26/16 11:52 Pulse 64 10/26/16 12:04 Resp 20 10/26/16 11:52 BP 171/79 10/26/16 11:52 Pulse Ox 96 10/26/16 11:52 Intake & Output 10/25/16 10/26/16 10/26/16 18:59 06:59 18:59 Intake Total 422 30 740 Output Total 1450 700 Balance -1028 -670 740 Weight 126.9 kg Intake: IV 30 NS 30 Oral 422 740 Output: Urine 1450 700 - Exam GENERAL EXAM: Alert, active, comfortable in no apparent distress. HEAD: Normocephalic. EYES: Normal reaction of pupils, equal size. NOSE: Clear with pink turbinates. THROAT: No erythema or exudates. NECK: No masses, no JVD. CHEST: No chest wall deformity. LUNGS: Equal air entry with bilateral end expiratory wheeze. Diminished. CVS: S1 and S2 normal with no audible mumurs, regular rhythm. ABDOMEN: No hepatosplenomegaly, normal bowel sounds, no guarding or rigidity. SPINE: No scoliosis or deformity SKIN: No rashes CENTRAL NERVOUS SYSTEM: No focal deficits, tone is normal in all 4 extremities. Extremities: There is trace peripheral edema. No clubbing, no cyanosis. Peripheral pulses are intact. - Labs CBC & Chem 7: 10/26/16 06:10 10/26/16 06:10 Labs: Abnormal Lab Results - Last 24 Hours (Table) 10/25/16 10/25/16 10/25/16 Range/Units 15:48 16:38 20:55 WBC (3.8-10.6) k/uL Plt Count (150-450) k/uL Neutrophils # (1.3-7.7) k/uL Lymphocytes # (1.0-4.8) k/uL Sodium 133 L (137-145) mmol/L Potassium (3.5-5.1) mmol/L Chloride (98-107) mmol/L BUN (9-20) mg/dL Glucose (74-99) mg/dL POC Glucose (mg/dL) 160 H 189 H (75-99) mg/dL 10/26/16 10/26/16 10/26/16 Range/Units 06:10 06:10 06:16 WBC 10.7 H (3.8-10.6) k/uL Plt Count 84 L (150-450) k/uL Neutrophils # 9.2 H (1.3-7.7) k/uL Lymphocytes # 0.6 L (1.0-4.8) k/uL Sodium 132 L (137-145) mmol/L Potassium 5.5 H (3.5-5.1) mmol/L Chloride 95 L (98-107) mmol/L BUN 44 H (9-20) mg/dL Glucose 231 H (74-99) mg/dL POC Glucose (mg/dL) 245 H (75-99) mg/dL 10/26/16 Range/Units 11:24 WBC (3.8-10.6) k/uL Plt Count (150-450) k/uL Neutrophils # (1.3-7.7) k/uL Lymphocytes # (1.0-4.8) k/uL Sodium (137-145) mmol/L Potassium (3.5-5.1) mmol/L Chloride (98-107) mmol/L BUN (9-20) mg/dL Glucose (74-99) mg/dL POC Glucose (mg/dL) 216 H (75-99) mg/dL Assessment and Plan Plan: Impression: #1 Acute exacerbation of severe chronic obstructive pulmonary disease. #2 Acute hypoxic respiratory failure secondary to above. #3 Chronic and ongoing tobacco dependence. #4 Alcohol use of approximate 6 beers daily. #5 Coronary artery disease with previous coronary artery bypass grafting. #6 Severe ischemic cardiomyopathy with estimated ejection fraction less than 10% , status post AICD placement. #7 Hypertension. #8 Hyperlipidemia. #9 History of medication noncompliance (Symbicort) secondary to cost. #10 Mild troponin leak. #11 Acute renal failure, peak creatinine 1.36, secondary to diuresis, currently improved to 1.10. #12 Features of obstructive sleep apnea to be evaluated in the outpatient setting. Plan: The patient was seen and evaluated by Dr. Walker. We will continue with bronchodilators 4 times a day and when necessary, Pulmicort and Perforomist inhalations twice a day. We'll convert him to oral prednisone in the a.m. Plan for discharge in the a.m. He will follow up with Dr. Iraheta in our office and be determined for possible sleep study. The patient has again been educated regarding the importance of complete smoking cessation and a NicoDerm patch remains in place. He is also encouraged regarding weight loss and alcohol cessation. We will increase his activity as tolerated. We'll continue to follow.
[2016-10-26 16:33] LABS: Glucose,Whole Blood 206 mg/dL (75-99)
--- NOTE | 2016-10-26 16:58 | P.PN ---
Subjective 61-year-old female with prior history of CAD and severe ischemic cardiomyopathy comes in to the hospital with complains of difficulty breathing. Patient was noted to have an acute tracheobronchitis causing acute exacerbation of COPD. Patient was requiring high levels of supplemental oxygen. There was some concern of pulmonary vessel congestion as well. Patient was treated with bronchodilators, steroids. Patient improved significantly. Today on evaluation patient states to be doing well continues to have a significant amount of dark yellowish sputum, which he was a significant amount. Patient does state to have nocturnal dyspnea however is doing well during the day was able to ambulate in the halls without requiring any supplemental oxygen today. Objective - Vital Signs Vital signs: Vital Signs Temp 97 F L 10/26/16 16:00 Pulse 64 10/26/16 16:33 Resp 20 10/26/16 16:00 BP 172/74 10/26/16 16:00 Pulse Ox 95 10/26/16 16:26 Intake & Output 10/25/16 10/26/16 10/26/16 18:59 06:59 18:59 Intake Total 710 17 6732 Output Total 1450 700 600 Balance -1028 -670 600 Weight 126.9 kg Intake: IV 30 NS 30 Oral 422 1200 Output: Urine 1450 700 600 Other: Voiding Method Urinal - Exam Physical exam Gen. appearance oriented 3 in no distress Neck is supple no JVD Lungs air movement is appreciated rhonchi appreciated in the lower lobes. Abdomen is soft nontender no organomegaly bowel sounds are intact Neurologically cranial nerves II-12 grossly intact no focal motor or sensory deficits noted No lower extremity edema appreciated. Skin no abnormalities appreciated - Labs CBC & Chem 7: 10/26/16 06:10 10/26/16 06:10 Labs: Abnormal Lab Results - Last 24 Hours (Table) 10/25/16 10/26/16 10/26/16 Range/Units 20:55 06:10 06:10 WBC 10.7 H (3.8-10.6) k/uL Plt Count 84 L (150-450) k/uL Neutrophils # 9.2 H (1.3-7.7) k/uL Lymphocytes # 0.6 L (1.0-4.8) k/uL Sodium 132 L (137-145) mmol/L Potassium 5.5 H (3.5-5.1) mmol/L Chloride 95 L (98-107) mmol/L BUN 44 H (9-20) mg/dL Glucose 231 H (74-99) mg/dL POC Glucose (mg/dL) 189 H (75-99) mg/dL 10/26/16 10/26/16 10/26/16 Range/Units 06:16 11:24 16:28 WBC (3.8-10.6) k/uL Plt Count (150-450) k/uL Neutrophils # (1.3-7.7) k/uL Lymphocytes # (1.0-4.8) k/uL Sodium (137-145) mmol/L Potassium (3.5-5.1) mmol/L Chloride (98-107) mmol/L BUN (9-20) mg/dL Glucose (74-99) mg/dL POC Glucose (mg/dL) 245 H 216 H 206 H (75-99) mg/dL Assessment and Plan Plan: #1 acute hypoxic respiratory failure likely secondary to an acute exacerbation of COPD #2 ongoing tobacco use #3 history of CAD status post CABG #4 compensated systolic heart failure EF of 10% #5 history of hypertension #dyslipidemia #7 indeterminate troponin leak #8 acute kidney injury likely secondary to overdiuresis #9 clinical obstructive sleep apnea Plan Patient will be discharged in the next 24 hours. Continue ongoing care steroids will be tapered as recommended by pulmonology. Patient should follow up with the sleep specialist does appear to have nocturnal dyspnea patient likely has a central component of sleep apnea. Is encouraged to ambulate and get up and go test did not reveal any hypoxic episodes.
[2016-10-26 20:40] LABS: Glucose,Whole Blood 164 mg/dL (75-99)
[2016-10-26] MEDS: INSULIN GLARGINE 100 UNIT/ML 10 ML VIAL SQ SCH (21:20)
[2016-10-27] MEDS: methylPREDNISolone SOD SUCCI 125 MG/2 ML VIAL IV SCH (06:24)
[2016-10-27] MEDS: PANTOPRAZOLE 40 MG TABLET PO SCH (06:24)
[2016-10-27 06:32] LABS: Glucose,Whole Blood 188 mg/dL (75-99)
[2016-10-27] MEDS: INSULIN LISPRO (humaLOG) 300 UNIT/3 ML VIAL SQ SCH ×2 (07:20→07:21)
[2016-10-27] MEDS: metFORMIN 500 MG TAB PO SCH (07:56)
[2016-10-27] MEDS: NICOTINE 21MG/24HR PATCH TRANSDERM SCH (07:56)
[2016-10-27] MEDS: ATORVASTATIN 20 MG TAB PO SCH (07:56)
[2016-10-27] MEDS: AZITHROMYCIN 500 MG TAB PO SCH (07:56)
[2016-10-27] MEDS: ASPIRIN 81 MG CHEW PO SCH (07:57)
[2016-10-27] MEDS: DOCUSATE 100 MG CAP PO SCH (07:57)
[2016-10-27] MEDS: HEPARIN SODIUM,PORCINE 5,000 UNIT/ML 1 ML VIAL SQ SCH (07:57)
[2016-10-27 07:58] LABS: Basophils % (A) 0 %; CH 31.3; CHCM 33.5; Eosinophils % (A) 0 %; HCT 40.2 % (39.0-53.0); HDW 2.74; HGB 13.3 gm/dL (13.0-17.5); Luc # (Auto) 0.14; Luc % (Auto) 1; Lymphocytes # (A) 0.7 k/uL (1.0-4.8); Lymphocytes % (A) 7 %; MCH 30.9 pg (25.0-35.0); MCV 93.7 fL (80.0-100.0); Mean Platelet Volume 8.4; Monocytes # (A) 0.6 k/uL (0-1.0); Monocytes % (A) 6 %; Neutrophils % (A) 86 %; RBC 4.29 m/uL (4.30-5.90); WBC 10.5 k/uL (3.8-10.6); WBC (Perox) 10.04
[2016-10-27 08:12] LABS: Anion Gap 9 mmol/L; Blood Urea Nitrogen 47 mg/dL (9-20); Calcium 8.6 mg/dL (8.4-10.2); Carbon Dioxide 28 mmol/L (22-30); Chloride 96 mmol/L (98-107); Glucose 181 mg/dL (74-99); Non-African American GFR(MDRD) >60 (>60 ml/min/1.73 sqM); Potassium 5.2 mmol/L (3.5-5.1); Sodium 133 mmol/L (137-145)
[2016-10-27] MEDS: FUROSEMIDE 40 MG TAB PO SCH (08:24)
[2016-10-27] MEDS: FORMOTEROL FUMARATE 20 MCG/2 ML NEBU INHALATION SCH (08:44)
[2016-10-27] MEDS: BUDESONIDE 1 MG/2 ML NEBU INHALATION SCH (08:44)
[2016-10-27] MEDS: IPRATROPIUM-ALBUTEROL 3 ML NEB INHALATION SCH ×2 (08:44→12:06)
[2016-10-27 09:19] VITALS: BP 163/78; PULSE 55; RESP 20; TEMP 97.2
[2016-10-27 12:07] LABS: Glucose,Whole Blood 225 mg/dL (75-99)
--- NOTE | 2016-10-27 13:48 | P.DS ---
Providers Date of admission: 10/20/16 10:11 Attending physician: Rishi An Consults: 10/20/16 18:06 Consult Physician Routine Consulting Provider: Alesha Tompkins Consult Reason/Comments: respiratory failure, COPD Do you want consulting provider notified?: Yes Primary care physician: René Marie [facility] Course: 61-year-old female with prior history of CAD and severe ischemic cardiomyopathy comes in to the hospital with complains of difficulty breathing. Patient was noted to have an acute tracheobronchitis causing acute exacerbation of COPD. Patient was requiring high levels of supplemental oxygen. There was some concern of pulmonary vessel congestion as well. Patient was treated with bronchodilators, steroids. Patient improved significantly. Today on evaluation patient states to be doing well continues to have a significant amount of dark yellowish sputum, which he was a significant amount. Patient does state to have nocturnal dyspnea however is doing well during the day was able to ambulate in the halls without requiring any supplemental oxygen today. 10/27/2016 Patient states that his sputum amount has decreased clear in color at this time. States to be ambulating without much difficulty. Physical exam Gen. appearance oriented 3 in no distress Neck is supple no JVD Lungs air movement is appreciated rhonchi appreciated in the lower lobes. Abdomen is soft nontender no organomegaly bowel sounds are intact Neurologically cranial nerves II-12 grossly intact no focal motor or sensory deficits noted No lower extremity edema appreciated. Skin no abnormalities appreciated Assessment and Plan Plan: #1 acute hypoxic respiratory failure likely secondary to an acute exacerbation of COPD #2 ongoing tobacco use #3 history of CAD status post CABG #4 compensated systolic heart failure EF of 10% #5 history of hypertension #dyslipidemia #7 indeterminate troponin leak #8 acute kidney injury likely secondary to overdiuresis #9 clinical obstructive sleep apnea Medication changes. Spironolactone was discontinued as patient was noted to have hyperkalemia on discharge. Lasix was increased to 40 twice a day. Patient is to follow up closely with pulmonology and cardiology. Plan - Discharge Summary New Discharge Prescriptions: Albuterol Inhaler [Ventolin Hfa Inhaler] 1 - 2 puff INHALATION Q6HR PRN #1 inhaler PRN Reason: Dyspnea Doxycycline Hyclate [Vibramycin] 100 mg PO BID #10 cap Fluticasone/Salmeterol [Advair 100-50 Diskus] 1 inhalation PO BID #1 inhaler Furosemide [Lasix] 40 mg PO BID #30 tablet metFORMIN HCL [Glucophage] 1,000 mg PO BID #60 tab predniSONE 0 mg PO DIRECTED #30 tab Discharge Medication List Albuterol Sulfate [Ventolin HFA] 1 - 2 puff INHALATION RT-Q6H PRN 05/26/14 [ History] Aspirin EC [Ecotrin Low Dose] 81 mg PO DAILY 05/18/16 [History] Atorvastatin [Lipitor] 20 mg PO DAILY 05/18/16 [History] Metoprolol Succinate [Toprol XL] 100 mg PO DAILY 05/18/16 [History] Albuterol Nebulized [Ventolin Nebulized] 2.5 mg INHALATION RT-TID #0 05/25/16 [ Rx] Lisinopril [Zestril] 10 mg PO DAILY 10/20/16 [History] Albuterol Inhaler [Ventolin Hfa Inhaler] 1 - 2 puff INHALATION Q6HR PRN #1 inhaler 10/27/16 [Rx] Doxycycline Hyclate [Vibramycin] 100 mg PO BID #10 cap 10/27/16 [Rx] Fluticasone/Salmeterol [Advair 100-50 Diskus] 1 inhalation PO BID #1 inhaler [Rx] Furosemide [Lasix] 40 mg PO BID #30 tablet 10/27/16 [Rx] metFORMIN HCL [Glucophage] 1,000 mg PO BID #60 tab 10/27/16 [Rx] predniSONE 0 mg PO DIRECTED #30 tab 10/27/16 [Rx] Follow up Appointment(s)/Referral(s): Mary Merritt MD [Primary Care Provider] - 11/01/16 1:40 pm Gisella Iraheta MD [STAFF PHYSICIAN] - 11/08/16 1:30 pm Patient Instructions/Handouts: COPD (Chronic Obstructive Pulmonary Disease) (DC ), Dyspnea (GEN) Discharge Disposition: HOME SELF-CARE
== END 2016-10-27 12:20 | disposition home or self-care (01) | DRG 190 ==
LOC: EC 07:24 → 6SEL 10:11 → 6ICU 22:04 → 6SEL 22:10
PROVIDERS: ADMIT Hospitalist; ATTEND Hospitalist
DX: J44.1 Chronic obstructive pulmonary disease with (acute) exacerbation (principal); J96.01 Acute respiratory failure with hypoxia; I50.23 Acute on chronic systolic (congestive) heart failure; N17.9 Acute kidney failure, unspecified; D69.59 Other secondary thrombocytopenia; E11.65 Type 2 diabetes mellitus with hyperglycemia; E87.1 Hypo-osmolality and hyponatremia; Z99.81 Dependence on supplemental oxygen; E87.5 Hyperkalemia; J20.9 Acute bronchitis, unspecified; J44.0 Chronic obstructive pulmonary disease with (acute) lower respiratory infection; I11.0 Hypertensive heart disease with heart failure; E78.5 Hyperlipidemia, unspecified; F10.10 Alcohol abuse, uncomplicated; F17.210 Nicotine dependence, cigarettes, uncomplicated; G47.33 Obstructive sleep apnea (adult) (pediatric); I25.10 Atherosclerotic heart disease of native coronary artery without angina pectoris; I25.5 Ischemic cardiomyopathy; M16.0 Bilateral primary osteoarthritis of hip; T38.0X5A Adverse effect of glucocorticoids and synthetic analogues, initial encounter; T50.2X5A Adverse effect of carbonic-anhydrase inhibitors, benzothiadiazides and other diuretics, initial encounter; Z79.899 Other long term (current) drug therapy; I25.2 Old myocardial infarction; Z82.49 Family history of ischemic heart disease and other diseases of the circulatory system; Z91.14 Patient's other noncompliance with medication regimen; Z95.1 Presence of aortocoronary bypass graft; Z95.810 Presence of automatic (implantable) cardiac defibrillator; Z88.3 Allergy status to other anti-infective agents; Z88.8 Allergy status to other drugs, medicaments and biological substances
CPT/HCPCS: 36415; 36600; 71020; 80048; 80053; 82550; 82553; 82805; 83036; 83605; 83735; 83880; 84132; 84295; 84484; 85025; 85610; 85730; 87040; 87502; 93005; 94640; 94644; 94660; 94760; 96361; 96365; 99291

== ENCOUNTER 2017-02-13 19:48 | Inpatient (IN) | payer MEDICARE ==
[2017-02-13] MEDS ORDERED: IPRATROPIUM-ALBUTEROL 3 ML NEB INHALATION STA (21:08)
--- NOTE | 2017-02-13 21:14 | ED ---
SOB HPI - General Chief Complaint: Shortness of Breath Stated Complaint: NEERAJ Time Seen by Provider: 02/13/17 20:59 Source: patient, EMS Mode of arrival: EMS Limitations: no limitations - History of Present Illness Initial Comments: This patient is a 61-year-old man with history of COPD and some CHF. He states that he has had worsening from his baseline going on for some weeks. He has been taking Lasix for swelling in his legs without much improvement. Over the past 2 days his respiratory status has been worsening. He also has a nonproductive cough. Over the past 2 days she has also had some left-sided chest pain that he feels also radiates to his back area it is an aching. He has not noted relieving factors, and it seems to be made worse with coughing. MD Complaint: shortness of breath, chest pain -: days(s) Radiation: back Severity: mild Quality: aching Consistency: constant Improves With: nothing Worsens With: nothing Known History Of: COPD, congestive heart failure Associated Symptoms: chest pain, cough Treatments Prior to Arrival: oxygen, bronchodilator - Related Data Home Medications Medication Instructions Recorded Confirmed Atorvastatin [Lipitor] 20 mg PO DAILY 05/18/16 02/13/17 Lisinopril [Zestril] 10 mg PO DAILY 10/20/16 02/13/17 Albuterol Inhaler [Ventolin Hfa 2 puff INHALATION RT-QID PRN 02/13/17 02/13/17 Inhaler] Albuterol Nebulized [Ventolin 2.5 mg INHALATION RT-QID 02/13/17 02/13/17 Nebulized] Furosemide [Lasix] 40 mg PO DAILY 02/13/17 02/13/17 Metolazone [Zaroxolyn] 2.5 mg PO DAILY 02/13/17 02/13/17 Spironolactone [Aldactone] 25 mg PO DAILY 02/13/17 02/13/17 metFORMIN HCL [Glucophage] 500 mg PO BID 02/13/17 02/13/17 Allergies Allergy/AdvReac Type Severity Reaction Status Date / Time Latex, Natural Rubber Allergy Rash/Hives Verified 02/13/17 20:20 levofloxacin [From Levaquin] Allergy Rash/Hives Verified 02/13/17 20:20 mold Allergy Rash/Hives Verified 02/13/17 20:20 prednisone Allergy Rash/Hives Verified 02/13/17 20:20 STEROIDS Allergy Rash/Hives Uncoded 02/13/17 20:20 Review of Systems ROS Statement: Those systems with pertinent positive or pertinent negative responses have been documented in the HPI. ROS Other: All systems not noted in ROS Statement are negative. Constitutional: Denies: fever, chills Respiratory: Reports: as per HPI, cough, dyspnea, wheezes. Denies: hemoptysis Cardiovascular: Reports: as per HPI, chest pain, dyspnea on exertion, orthopnea , edema. Denies: palpitations, syncope Gastrointestinal: Denies: abdominal pain, nausea, vomiting Genitourinary: Denies: dysuria Musculoskeletal: Denies: back pain Skin: Denies: rash Neurological: Denies: headache, weakness, numbness Past Medical History Past Medical History: Coronary Artery Disease (CAD), Chest Pain / Angina, Heart Failure, COPD, Diabetes Mellitus, Hyperlipidemia, Myocardial Infarction ([place]), Osteoarthritis (OA) Additional Past Medical History / Comment(s): Cardiomyopathy, pt states he has had several MIs, tinnitis bilaterally, DJD bilateral hips, occasional back pain , pt states he does not have HTN, hypertension is in past medical records. Last Myocardial Infarction Date:: UNSURE History of Any Multi-Drug Resistant Organisms: None Reported Past Surgical History: AICD, Coronary Bypass/CABG, Heart Catheterization, Orthopedic Surgery Additional Past Surgical History / Comment(s): Pacemaker and AICD- 10/2013, CABG 1 vessel many yrs ago per pt, BILATERAL SHOULDER SURGERY , steel alcides in leg from fracture, bilat shoulders Past Anesthesia/Blood Transfusion Reactions: No Reported Reaction Type of Cardiac Device: Permanent Pacemaker, AICD Device Placement Date:: Past Psychological History: No Psychological Hx Reported Smoking Status: Current every day smoker Past Alcohol Use History: Daily Past Drug Use History: None Reported - Past Family History Mother History Unknown: Yes Father Family Medical History: Myocardial Infarction ([place]) Additional Family Medical History / Comment(s): Father of a [place] at the age of 56yrs. Brother(s) Family Medical History: Cancer General Exam Limitations: no limitations General appearance: alert, in distress Head exam: Present: atraumatic, normocephalic Eye exam: Present: normal appearance. Absent: scleral icterus, conjunctival injection Neck exam: Present: normal inspection, full ROM Respiratory exam: Present: respiratory distress, wheezes, chest wall tenderness , prolonged expiratory. Absent: rales, rhonchi, stridor, accessory muscle use, decreased breath sounds Cardiovascular Exam: Present: regular rate, normal rhythm, normal heart sounds. Absent: systolic murmur, diastolic murmur, rubs, gallop GI/Abdominal exam: Present: soft. Absent: distended, tenderness, guarding, rebound, mass Extremities exam: Present: normal inspection, normal capillary refill, pedal edema. Absent: calf tenderness Back exam: Present: normal inspection. Absent: CVA tenderness (R), CVA tenderness (L) Neurological exam: Present: alert Skin exam: Present: warm, dry, intact, normal color. Absent: rash Course Vital Signs 02/13/17 02/13/17 02/13/17 19:49 20:52 21:48 Temperature 98.5 F Pulse Rate 67 53 L 60 Respiratory 30 H 26 H Rate Blood Pressure 119/57 129/82 O2 Sat by Pulse 98 97 Oximetry 02/13/17 02/13/17 21:59 23:14 Temperature 98.4 F Pulse Rate 64 83 Respiratory 16 18 Rate Blood Pressure 137/61 127/64 O2 Sat by Pulse 99 98 Oximetry Medical Decision Making - Lab Data Result diagrams: 02/13/17 20:08 02/13/17 20:08 Lab Results 02/13/17 02/13/17 02/13/17 Range/Units 20:08 20:08 20:08 WBC 10.0 (3.8-10.6) k/uL RBC 4.44 (4.30-5.90) m/uL Hgb 14.2 (13.0-17.5) gm/dL Hct 42.2 (39.0-53.0) % MCV 94.9 (80.0-100.0) fL MCH 32.1 (25.0-35.0) pg MCHC 33.8 (31.0-37.0) g/dL RDW 14.9 (11.5-15.5) % Plt Count 183 (150-450) k/uL Neutrophils % 68 % Lymphocytes % 20 % Monocytes % 7 % Eosinophils % 2 % Basophils % 1 % Neutrophils # 6.8 (1.3-7.7) k/uL Lymphocytes # 2.0 (1.0-4.8) k/uL Monocytes # 0.7 (0-1.0) k/uL Eosinophils # 0.2 (0-0.7) k/uL Basophils # 0.1 (0-0.2) k/uL PT (9.0-12.0) sec INR (<1.2) APTT (22.0-30.0) sec D-Dimer (<0.60) mg/L FEU Sodium 137 (137-145) mmol/L Potassium 3.6 (3.5-5.1) mmol/L Chloride 94 L (98-107) mmol/L Carbon Dioxide 28 (22-30) mmol/L Anion Gap 15 mmol/L BUN 15 (9-20) mg/dL Creatinine 1.00 (0.66-1.25) mg/dL Est GFR (MDRD) Af Amer >60 (>60 ml/min/1.73 sqM) Est GFR (MDRD) Non-Af >60 (>60 ml/min/1.73 sqM) Glucose 178 H (74-99) mg/dL Calcium 9.9 (8.4-10.2) mg/dL Magnesium 1.3 L (1.6-2.3) mg/dL Total Bilirubin 1.6 H (0.2-1.3) mg/dL AST 27 (17-59) U/L ALT 40 (21-72) U/L Alkaline Phosphatase 78 (38-126) U/L Total Creatine Kinase 102 (55-170) U/L CK-MB (CK-2) 3.4 H* (0.0-2.4) ng/mL CK-MB (CK-2) Rel Index 3.3 Troponin I 0.056 H* (0.000-0.034) ng/mL NT-Pro-B Natriuret Pep pg/mL Total Protein 6.4 (6.3-8.2) g/dL Albumin 4.1 (3.5-5.0) g/dL 02/13/17 02/13/17 Range/Units 20:08 20:08 WBC (3.8-10.6) k/uL RBC (4.30-5.90) m/uL Hgb (13.0-17.5) gm/dL Hct (39.0-53.0) % MCV (80.0-100.0) fL MCH (25.0-35.0) pg MCHC (31.0-37.0) g/dL RDW (11.5-15.5) % Plt Count (150-450) k/uL Neutrophils % % Lymphocytes % % Monocytes % % Eosinophils % % Basophils % % Neutrophils # (1.3-7.7) k/uL Lymphocytes # (1.0-4.8) k/uL Monocytes # (0-1.0) k/uL Eosinophils # (0-0.7) k/uL Basophils # (0-0.2) k/uL PT 12.2 H (9.0-12.0) sec INR 1.2 H (<1.2) APTT 24.1 (22.0-30.0) sec D-Dimer 0.22 (<0.60) mg/L FEU Sodium (137-145) mmol/L Potassium (3.5-5.1) mmol/L Chloride (98-107) mmol/L Carbon Dioxide (22-30) mmol/L Anion Gap mmol/L BUN (9-20) mg/dL Creatinine (0.66-1.25) mg/dL Est GFR (MDRD) Af Amer (>60 ml/min/1.73 sqM) Est GFR (MDRD) Non-Af (>60 ml/min/1.73 sqM) Glucose (74-99) mg/dL Calcium (8.4-10.2) mg/dL Magnesium (1.6-2.3) mg/dL Total Bilirubin (0.2-1.3) mg/dL AST (17-59) U/L ALT (21-72) U/L Alkaline Phosphatase (38-126) U/L Total Creatine Kinase (55-170) U/L CK-MB (CK-2) (0.0-2.4) ng/mL CK-MB (CK-2) Rel Index Troponin I (0.000-0.034) ng/mL NT-Pro-B Natriuret Pep 5120 pg/mL Total Protein (6.3-8.2) g/dL Albumin (3.5-5.0) g/dL - EKG Data -: EKG Interpreted by Ga EKG shows normal: axis (Normal), intervals (ME interval 200 ms, QRS duration 196 ms, QTc 524 ms) Rate: normal (Rate 65 bpm) Interpretation: other (The patient's rhythm appears to be bigeminy, having a scammon bay beat alternating with paced beats. The rate is proximal 65 bpm) Disposition Clinical Impression: Congestive heart failure Disposition: ADMITTED IP TO THIS [facility] Condition: Fair Referrals: Mary Merritt MD [Primary Care Provider] - 1-2 days
[2017-02-13 21:22] LABS: Basophils # (A) 0.1 k/uL (0-0.2); Basophils % (A) 1 %; CH 32.5; CHCM 34.4; Eosinophils # (A) 0.2 k/uL (0-0.7); Eosinophils % (A) 2 %; HCT 42.2 % (39.0-53.0); HDW 2.82; HGB 14.2 gm/dL (13.0-17.5); Luc # (Auto) 0.18; Luc % (Auto) 2; Lymphocytes % (A) 20 %; MCH 32.1 pg (25.0-35.0); MCHC 33.8 g/dL (31.0-37.0); MCV 94.9 fL (80.0-100.0); Mean Platelet Volume 8.1; Monocytes # (A) 0.7 k/uL (0-1.0); Monocytes % (A) 7 %; Neutrophils # (A) 6.8 k/uL (1.3-7.7); Neutrophils % (A) 68 %; RBC 4.44 m/uL (4.30-5.90); RDW 14.9 % (11.5-15.5); WBC (Perox) 9.32
[2017-02-13 21:35] LABS: ALT 40 U/L (21-72); AST 27 U/L (17-59); Alkaline Phosphatase 78 U/L (38-126); Anion Gap 15 mmol/L; Blood Urea Nitrogen 15 mg/dL (9-20); Calcium 9.9 mg/dL (8.4-10.2); Carbon Dioxide 28 mmol/L (22-30); Chloride 94 mmol/L (98-107); Glucose 178 mg/dL (74-99); Magnesium 1.3 mg/dL (1.6-2.3); Non-African American GFR(MDRD) >60 (>60 ml/min/1.73 sqM); Potassium 3.6 mmol/L (3.5-5.1); Sodium 137 mmol/L (137-145); Total Bilirubin 1.6 mg/dL (0.2-1.3); Total Protein 6.4 g/dL (6.3-8.2)
[2017-02-13 21:37] LABS: INR 1.2 (<1.2); Partial Thromboplastin Time 24.1 sec (22.0-30.0); Prothrombin Time 12.2 sec (9.0-12.0)
--- NOTE | 2017-02-13 21:45 | XR ---
EXAMINATION TYPE: XR chest 2V DATE OF EXAM: 02/13/2017 COMPARISON: 10/20/2016 HISTORY: Difficulty breathing TECHNIQUE: Frontal and lateral views of the chest are obtained. FINDINGS: Heart is enlarged. There is no gross heart failure. Lungs are clear of consolidation. Ther e is a 1.5 cm density over the right upper lobe that is quite dense and not changed in size compared to 05/18/2016. This is probably calcified costal cartilage. There is left axillary pacemaker with madeline d tips in the right ventricle. There are chest leads. IMPRESSION: Moderate cardiomegaly. No gross heart failure. No change compared to 05/18/2016.
[2017-02-13] MEDS ORDERED: NITROGLYCERIN SL TABS 0.4 MG TAB SUBLINGUAL STA (22:01)
[2017-02-13 22:02] LABS: Creatine Kinase MB 3.4 ng/mL (0.0-2.4); Troponin I 0.056 ng/mL (0.000-0.034)
[2017-02-13] MEDS ORDERED: FUROSEMIDE 10 MG/ML 4 ML VIAL IV STA (22:02)
[2017-02-13] MEDS ORDERED: NITROGLYCERIN OINT 1 INCH/GM PACKET TOPICAL STA (22:03)
[2017-02-13 23:44] LABS: Appearance,Urine Clear (Clear); Bilirubin,Urine Negative (Negative); Glucose,Urine (UA) Negative (Negative); Ketones,Urine Negative (Negative); Leukocyte Esterase,Urine Negative (Negative); Nitrite,Urine Negative (Negative); Protein,Urine Trace (Negative); Specific Gravity,Urine 1.009 (1.001-1.035); UA Billing (MACRO vs. MICRO) CHEM
[2017-02-14] MEDS ORDERED: ALBUTEROL NEBULIZED 2.5 MG/3 ML INHALATION PRN (00:08)
[2017-02-14] MEDS ORDERED: NITROGLYCERIN SL TABS 0.4 MG TAB SUBLINGUAL ONE (00:34)
[2017-02-14] MEDS ORDERED: HYDROmorphone 1 MG/ML 1 ML SYRINGE IVP STA (00:42)
[2017-02-14] MEDS ORDERED: HEPARIN SODIUM,PORCINE 5,000 UNIT/ML 1 ML VIAL IV PRN (00:43)
[2017-02-14] MEDS ORDERED: HEPARIN SODIUM,PORCINE 5,000 UNIT/ML 1 ML VIAL IV ONE (00:43)
[2017-02-14] MEDS ORDERED: HEPARIN SODIUM,PORCINE/D5W PMX 25,000 UNIT in DEXTROSE/WATER 1 500ML.BAG IV SCH (00:45)
[2017-02-14] MEDS ORDERED: MAGNESIUM SULFATE-D5W PMX 1 GM in DEXTROSE/WATER 1 100ML.BAG IVPB ONE (01:00)
[2017-02-14 01:31] LABS: INR 1.2 (<1.2); Partial Thromboplastin Time 23.2 sec (22.0-30.0)
[2017-02-14 04:04] LABS: Creatine Kinase MB 3.3 ng/mL (0.0-2.4); Troponin I 0.057 ng/mL (0.000-0.034)
[2017-02-14] MEDS ORDERED: FUROSEMIDE 10 MG/ML 4 ML VIAL IV SCH (06:00)
[2017-02-14 06:15] LABS: Glucose,Whole Blood 185 mg/dL (75-99)
[2017-02-14] MEDS: metFORMIN 500 MG TAB PO SCH ×2 (06:33→17:25)
[2017-02-14] MEDS: ALBUTEROL NEBULIZED 2.5 MG/3 ML INHALATION SCH ×4 (07:56→19:34)
[2017-02-14 08:18] LABS: Creatine Kinase MB 3.6 ng/mL (0.0-2.4); Troponin I 0.063 ng/mL (0.000-0.034)
[2017-02-14] MEDS ORDERED: Magnesium Replacement Protocol 1 EACH MISC MISCELLANE PRN (09:06)
[2017-02-14] MEDS ORDERED: Potassium Replacement Protocol 1 EACH MISC MISCELLANE PRN (09:10)
[2017-02-14] MEDS: NITROGLYCERIN OINT 1 INCH/GM PACKET TOPICAL SCH ×4 (09:25→21:08)
--- NOTE | 2017-02-14 10:31 | P.CRDCN ---
History of Present Illness Consult date: 02/14/17 Reason for Consult (text): CHF exacerbation Chief complaint: shortness of breath, dizziness, LE weakness History of present illness: This is a pleasant 61-year-old gentleman who follows with Dr. Birmingham in the office. He has a known history of CHF, coronary artery disease status post CABG, ischemic cardiomyopathy with a known ejection fraction of 20%, status post AICD placement, COPD, atrial tachycardia, diabetes, pulmonary hypertension and current every day smoker. He presented to the emergency department with complaints of increasing shortness of breath over the last several days as well as dizziness, left-sided chest discomfort and back discomfort and lower extremity weakness with activity. He also complained of lower extremity edema that is chronic. Chest x-ray on admission showed moderate cardiomegaly without gross heart failure, no change compared to exam on 2015. After evaluation of a magnesium of 1.3, the specimen supplemented. Troponins of 0.056, 0.057 and 0.063, BNP 5120, and a normal d-dimer. Looking back at troponin levels from September of this year it appears patient's troponins were mildly elevated that time as well. EKG shows paced rhythm. Upon examination, patient is resting comfortably in bed. Complains of shortness of breath with any activity. He also complains of "wheezing attacks" when he gets up to use the bathroom. He denies further complaints of chest discomfort or weakness. Past Medical History Past Medical History: Coronary Artery Disease (CAD), Chest Pain / Angina, Heart Failure, COPD, Diabetes Mellitus, Hyperlipidemia, Myocardial Infarction ([place]), Osteoarthritis (OA) Additional Past Medical History / Comment(s): Cardiomyopathy, pt states he has had several MIs, tinnitis bilaterally, DJD bilateral hips, occasional back pain , pt states he does not have HTN, hypertension is in past medical records. Last Myocardial Infarction Date:: UNSURE History of Any Multi-Drug Resistant Organisms: None Reported Past Surgical History: AICD, Coronary Bypass/CABG, Heart Catheterization, Orthopedic Surgery Additional Past Surgical History / Comment(s): Pacemaker and AICD- 10/2013, CABG 1 vessel many yrs ago per pt, BILATERAL SHOULDER SURGERY , steel alcides in leg from fracture, bilat shoulders Past Anesthesia/Blood Transfusion Reactions: No Reported Reaction Type of Cardiac Device: Permanent Pacemaker, AICD Device Placement Date:: Past Psychological History: No Psychological Hx Reported Additional Psychological History / Comment(s): Pt resides with his spouse. He has a walker at home but does not need to use it. He drives. He has a nebulizer. Smoking Status: Current every day smoker Past Alcohol Use History: Daily Past Drug Use History: None Reported - Past Family History Mother History Unknown: Yes Father Family Medical History: Myocardial Infarction ([place]) Additional Family Medical History / Comment(s): Father of a [place] at the age of 56yrs. Brother(s) Family Medical History: Cancer Medications and Allergies Home Medications Medication Instructions Recorded Confirmed Type Atorvastatin [Lipitor] 20 mg PO DAILY 05/18/16 02/13/17 History Lisinopril [Zestril] 10 mg PO DAILY 10/20/16 02/13/17 History Albuterol Inhaler [Ventolin Hfa 2 puff INHALATION RT-QID PRN 02/13/17 02/13/17 History Inhaler] Albuterol Nebulized [Ventolin 2.5 mg INHALATION RT-QID 02/13/17 02/13/17 History Nebulized] Furosemide [Lasix] 40 mg PO DAILY 02/13/17 02/13/17 History Metolazone [Zaroxolyn] 2.5 mg PO DAILY 02/13/17 02/13/17 History Spironolactone [Aldactone] 25 mg PO DAILY 02/13/17 02/13/17 History metFORMIN HCL [Glucophage] 500 mg PO BID 02/13/17 02/13/17 History Allergies Allergy/AdvReac Type Severity Reaction Status Date / Time Latex, Natural Rubber Allergy Rash/Hives Verified 02/13/17 20:20 levofloxacin [From Levaquin] Allergy Rash/Hives Verified 02/13/17 20:20 mold Allergy Rash/Hives Verified 02/13/17 20:20 prednisone Allergy Rash/Hives Verified 02/13/17 20:20 STEROIDS Allergy Rash/Hives Uncoded 02/13/17 20:20 Physical Exam Vitals: Vital Signs Temp Pulse Pulse Resp BP BP Pulse Ox 02/14/17 09:35 97.2 F L 60 18 119/69 98 02/14/17 08:04 64 02/14/17 07:57 56 L 97 02/14/17 04:33 68 02/14/17 04:26 66 02/14/17 04:00 97.0 F L 74 22 122/75 98 02/13/17 23:49 97.1 F L 55 L 18 137/86 97 02/13/17 23:46 52 L 18 133/70 100 02/13/17 23:14 83 18 127/64 98 02/13/17 21:59 98.4 F 64 16 137/61 99 02/13/17 21:48 60 02/13/17 20:52 53 L 26 H 129/82 97 02/13/17 19:49 98.5 F 67 30 H 119/57 98 Intake and Output 02/13/17 02/14/17 02/14/17 22:59 06:59 14:59 Intake Total 180 159.587 Balance 180 159.587 Intake: IV 180 Heparin Sodium,Porcine/ 80 D5w Pmx 25,000 unit In Dextrose/Water 1 500ml. bag @ 8.33 UNITS/KG/HR 19 .99 mls/hr IV .Q24H [facility] Rx#:[id number] Magnesium Sulfate-D5w Pmx 100 1 gm In Dextrose/Water 1 100ml.bag @ 50 mls/hr IVPB ONCE ONE Rx#: [id number] Intake, IV Titration 159.587 Amount Heparin Sodium,Porcine/ 159.587 D5w Pmx 25,000 unit In Dextrose/Water 1 500ml. bag @ 8.33 UNITS/KG/HR 19 .99 mls/hr IV .Q24H [facility] Rx#:[id number] Other: Voiding Method Urinal # Voids 1 Weight 120.202 kg 120.4 kg PHYSICAL EXAMINATION: HEENT: Head is atraumatic, normocephalic. Pupils equal, round. Neck is supple. There is no elevated jugular venous pressure. HEART EXAMINATION: Heart sounds regular, S1 and S2 normal, with a systolic murmur. CHEST EXAMINATION: Lungs reveal expiratory wheezing throughout all lung rene, no crackles or rhonchi. No chest wall tenderness is noted on palpation or with deep breathing. ABDOMEN: Soft, obese, nontender. Bowel sounds are heard. No organomegaly noted. EXTREMITIES: 1+ peripheral pulses with evidence of 2+ bilateral ankle edema left greater than right and no calf tenderness noted. NEUROLOGIC patient is awake, alert and oriented x3. . Results 02/13/17 20:08 02/14/17 07:18 Cardiac Enzymes 02/13/17 02/13/17 02/14/17 Range/Units 20:08 20:08 02:53 AST 27 (17-59) U/L CK-MB (CK-2) 3.4 H* 3.3 H* (0.0-2.4) ng/mL Troponin I 0.056 H* 0.057 H* (0.000-0.034) ng/mL 02/14/17 Range/Units 07:18 AST (17-59) U/L CK-MB (CK-2) 3.6 H* (0.0-2.4) ng/mL Troponin I 0.063 H* (0.000-0.034) ng/mL Coagulation 02/13/17 02/14/17 02/14/17 Range/Units 20:08 01:00 07:18 PT 12.2 H 12.0 (9.0-12.0) sec APTT 24.1 23.2 38.7 H (22.0-30.0) sec CBC 02/13/17 Range/Units 20:08 WBC 10.0 (3.8-10.6) k/uL RBC 4.44 (4.30-5.90) m/uL Hgb 14.2 (13.0-17.5) gm/dL Hct 42.2 (39.0-53.0) % Plt Count 183 (150-450) k/uL Comprehensive Metabolic Panel 02/13/17 02/14/17 Range/Units 20:08 07:18 Sodium 137 (137-145) mmol/L Potassium 3.6 3.1 L (3.5-5.1) mmol/L Chloride 94 L (98-107) mmol/L Carbon Dioxide 28 (22-30) mmol/L BUN 15 (9-20) mg/dL Creatinine 1.00 (0.66-1.25) mg/dL Glucose 178 H (74-99) mg/dL Calcium 9.9 (8.4-10.2) mg/dL AST 27 (17-59) U/L ALT 40 (21-72) U/L Alkaline Phosphatase 78 (38-126) U/L Total Protein 6.4 (6.3-8.2) g/dL Albumin 4.1 (3.5-5.0) g/dL Current Medications Generic Name Dose Route Start Last Admin Trade Name Freq PRN Reason Stop Dose Admin Albuterol Sulfate 2.5 mg 02/14/17 08:00 02/14/17 07:56 Ventolin Nebulized INHALATION 2.5 mg RT-QID [facility] Administration Albuterol Sulfate 2.5 mg 02/14/17 00:08 02/14/17 04:25 Ventolin Nebulized INHALATION 2.5 mg RT-Q2H PRN Administration Shortness Of Breath Or Wheezing Atorvastatin Calcium 20 mg 02/14/17 09:00 Lipitor PO DAILY [facility] Furosemide 40 mg 02/14/17 21:00 Lasix IV Q12HR [facility] Heparin Sodium (Porcine) 5,000 unit 02/14/17 21:00 Heparin SQ Q12HR [facility] Magnesium Sulfate/Dextrose 1 100 mls @ 100 mls/hr 02/14/17 09:30 gm/ IV Solution IVPB 02/14/17 12:29 Q1H [facility] Lisinopril 10 mg 02/14/17 09:00 Zestril PO DAILY [facility] Metformin HCl 500 mg 02/14/17 07:30 02/14/17 06:33 Glucophage PO 500 mg BID-W/MEALS [facility] Administration Metolazone 2.5 mg 02/14/17 09:00 Zaroxolyn PO DAILY [facility] Miscellaneous Information 1 each 02/14/17 09:06 Magnesium Per Protocol MISCELLANE DAILY PRN Per Protocol Protocol Miscellaneous Information 1 each 02/14/17 09:10 Potassium Per Protocol MISCELLANE DAILY PRN Per Protocol Protocol Nitroglycerin 1 inch 02/14/17 09:00 02/14/17 09:25 Nitro-Bid Oint TOPICAL 1 inch QID [facility] Administration Potassium Chloride 20 meq 02/14/17 10:00 K-Dur 20 PO 02/14/17 11:01 Q1HR [facility] Sodium Chloride 10 ml 02/14/17 09:00 Saline Flush IV BID [facility] Spironolactone 25 mg 02/14/17 09:00 Aldactone PO DAILY [facility] Intake and Output 02/13/17 02/14/17 02/14/17 22:59 06:59 14:59 Intake Total 180 159.587 Balance 180 159.587 Intake: IV 180 Heparin Sodium,Porcine/ 80 D5w Pmx 25,000 unit In Dextrose/Water 1 500ml. bag @ 8.33 UNITS/KG/HR 19 .99 mls/hr IV .Q24H [facility] Rx#:[id number] Magnesium Sulfate-D5w Pmx 100 1 gm In Dextrose/Water 1 100ml.bag @ 50 mls/hr IVPB ONCE ONE Rx#: [id number] Intake, IV Titration 159.587 Amount Heparin Sodium,Porcine/ 159.587 D5w Pmx 25,000 unit In Dextrose/Water 1 500ml. bag @ 8.33 UNITS/KG/HR 19 .99 mls/hr IV .Q24H [facility] Rx#:[id number] Other: Voiding Method Urinal # Voids 1 Weight 120.202 kg 120.4 kg 02/13/17 20:08 02/14/17 07:18 EKG Interpretations (text) Paced rhythm Assessment and Plan Plan: Assessment and plan #1 symptoms of progressively worsening shortness of breath and cough, likely secondary to COPD exacerbation with mild component of acute on chronic systolic congestive heart failure #2 mild troponin leak, not consistent with acute myocardial injury #3 ischemic cardiomyopathy, last known ejection fraction 20% #4 moderate to severe pulmonary hypertension #5 nicotine dependence #6 diabetes #7 hypokalemia #8 hypomagnesemia From cardiology's perspective, we'll repeat 2-D echo with Doppler to reassess LV function. We will supplement magnesium and potassium. We will stop IV heparin and put the patient on subcu heparin for DVT prophylaxis. Decrease Lasix to 40 mg IV push every 12 hours. Consult pulmonary for further evaluation of COPD and pulmonary hypertension. Strongly encouraged smoking cessation. Further recommendations to follow. MANAGER SOFTWARE note has been reviewed, I agree with a documented findings and plan of care. Patient was seen and examined.
[2017-02-14] MEDS: POTASSIUM CHLORIDE ER 20 MEQ TAB.ER PO SCH ×2 (11:23→11:25)
[2017-02-14] MEDS: MAGNESIUM SULFATE-D5W PMX 1 GM in DEXTROSE/WATER 1 100ML.BAG IVPB SCH ×3 (11:23→16:05)
[2017-02-14] MEDS: ATORVASTATIN 20 MG TAB PO SCH (11:23)
[2017-02-14] MEDS: LISINOPRIL 10 MG TAB PO SCH (11:24)
[2017-02-14] MEDS: METOLAZONE 2.5 MG TAB PO SCH (11:24)
[2017-02-14] MEDS: SPIRONOLACTONE 25 MG TAB PO SCH (11:24)
[2017-02-14 11:40] LABS: Glucose,Whole Blood 189 mg/dL (75-99)
[2017-02-14 12:01] VITALS: BMI 36.0
--- NOTE | 2017-02-14 12:32 | ECHOF ---
Referral Reason:CHF MEASUREMENTS -------- HEIGHT: 177.8 cm WEIGHT: 120.2 kg BP: IVSd: 1.1 cm (0.6 - 1.1) LVIDd: 6.1 cm (3.9 - 5.3) LVPWd: 1.2 cm (0.6 - 1.1) IVSs: 1.3 cm LVIDs: 6.0 cm LVPWs: 1.2 cm Ao Diam: 3.5 cm (2.0 - 3.7) AV Cusp: 1.8 cm (1.5 - 2.6) LA Diam: 4.0 cm (2.7 - 3.8) MV EXCURSION: 13.015 mm (> 18.000) MV EF SLOPE: 42 mm/s (70 - 150) EPSS: 2.3 cm MV E Migue: 0.87 m/s MV DecT: 297 ms MV A Migue: 0.19 m/s MV E/A Ratio: 4.48 RAP: 5.00 mmHg RVSP: 9.27 mmHg FINDINGS -------- Pacerwire seen in RV and RA. This was a technically difficult study with suboptimal views. The left ventricle is mildly dilated. There is borderline concentric left ventricular hypertrophy. There is severe global hypokinesis of LV . Overall left ventricular systolic function is severely impaired with, an EF < 20%. The RV was not well visualized. The left atrial size is normal. The right atrium was not well visualized. 1.5mg of Definity was utilized for enhancement of images The aortic valve was not well visualized. The mitral valve was not well visualized. There is trace mitral regurgitation. The tricuspid valve was not well visualized. Trace tricuspid regurgitation present. The right ventricular systolic pressure, as measured by Doppler, is 9.27mmHg. The pulmonic valve was not well visualized. The aortic root size is normal. There is no pericardial effusion. CONCLUSIONS -------- 1. Pacerwire seen in RV and RA. 2. 1.5mg of Definity was utilized for enhancement of images 3. The aortic valve was not well visualized. 4. There is trace mitral regurgitation. 5. Trace tricuspid regurgitation present. 6. The pulmonic valve was not well visualized. 7. The aortic root size is normal. 8. There is no pericardial effusion. 9. This was a technically difficult study with suboptimal views. 10. The left ventricle is mildly dilated. 11. There is borderline concentric left ventricular hypertrophy. 12. There is severe global hypokinesis of LV . 13. Overall left ventricular systolic function is severely impaired with, an EF < 20%. 14. The RV was not well visualized. 15. The left atrial size is normal. 16. The right atrium was not well visualized. HEEL STAINER: Erin Casey RDCS
--- NOTE | 2017-02-14 14:05 | P.CNPUL ---
History of Present Illness Consult date: 02/14/17 Reason for consult: dyspnea History of present illness: 61-year-old male patient with came in to the burst department yesterday because of worsening shortness of breath. He has also noted some increase in lower extremity edema. Denies having any chest pain. A congested cough. No significant sputum production. He had some increased dyspnea wheeze and a congested cough. No fever. No chills. No pleurisy. No hemoptysis. He is known to me from previous hospitalizations. He is known to have obesity along with COPD coronary artery disease and advanced cardiomyopathy of an ischemic type with an ejection fraction of less than 20% and the patient has an AICD in place. More recently, I have diagnosed this patient having obstructive sleep apnea, moderately severe with an apnea popping index of 24.5, worsen the supine body position and based on that the patient was treated with an auto CPAP unit with a minimum pressure of 5 and a maximum pressure of 17 with an air fit10 nasal pillows and he was supposed to follow-up with me at the sleep Center at the later stage. He is a nonsmoker. No change in mental status. His chest x- ray showed moderate cardiomegaly without any gross heart failure. A repeat echocardiogram was done that showed impaired LV function with an ejection fraction of less than 20%. No other significant valvular abnormalities noted. There was trace mitral regurgitation. Right ventricular pressure was estimated to be 9 mmHg. There was severe global hypokinesis of the left ventricle. The patient was noted to have a troponin leak with troponin levels of 0.05 and 0.06 respectively 2. The BNP level is 5120. The patient was started on a combination of DuoNeb nebulized treatments around the clock and prednisone burst taper starting with 40 mg. The patient was given also diuretics in the emergency department currently on Lasix 40 mg IV every 12 hours. The patient is also on Zaroxolyn 2.5 mg by mouth daily and Aldactone 25 mg by mouth daily. Doxycycline was added as an empiric antibiotic coverage. Review of Systems All systems: negative Constitutional: Denies chills, Denies fever Eyes: denies blurred vision, denies pain Ears, nose, mouth and throat: Denies headache, Denies sore throat Cardiovascular: Denies chest pain, Denies shortness of breath Respiratory: Denies cough Gastrointestinal: Denies abdominal pain, Denies diarrhea, Denies nausea, Denies vomiting Musculoskeletal: Denies myalgias Integumentary: Denies pruritus, Denies rash Neurological: Denies numbness, Denies weakness Psychiatric: Denies anxiety, Denies depression Endocrine: Denies fatigue, Denies weight change Past Medical History Past Medical History: Coronary Artery Disease (CAD), Chest Pain / Angina, Heart Failure, COPD, Diabetes Mellitus, Hyperlipidemia, Myocardial Infarction ([place]), Osteoarthritis ([place]) Additional Past Medical History / Comment(s): Coronary artery disease with a previous bypass surgery, ischemic cardiomyopathy with ejection fraction of less than 20%, COPD, obstructive sleep apnea with an AHI of 24 currently on auto CPAP unit, obesity, hypertension, AICD placement for ischemic cardiomyopathy, Cardiomyopathy, osteoarthritis, diabetes mellitus, hyperlipidemia, hypertension. Last Myocardial Infarction Date:: UNSURE History of Any Multi-Drug Resistant Organisms: None Reported Past Surgical History: AICD, Coronary Bypass/CABG, Heart Catheterization, Orthopedic Surgery Additional Past Surgical History / Comment(s): Pacemaker and AICD- 10/2013, CABG 1 vessel many yrs ago per pt, BILATERAL SHOULDER SURGERY , steel alcides in leg from fracture, bilat shoulders Past Anesthesia/Blood Transfusion Reactions: No Reported Reaction Type of Cardiac Device: Permanent Pacemaker, AICD Device Placement Date:: Past Psychological History: No Psychological Hx Reported Additional Psychological History / Comment(s): Pt resides with his spouse. He has a walker at home but does not need to use it. He drives. He has a nebulizer. Smoking Status: Current every day smoker Past Alcohol Use History: Daily Past Drug Use History: None Reported - Past Family History Mother History Unknown: Yes Father Family Medical History: Myocardial Infarction ([place]) Additional Family Medical History / Comment(s): Father of a [place] at the age of 56yrs. Brother(s) Family Medical History: Cancer Medications and Allergies Home Medications Medication Instructions Recorded Confirmed Type Atorvastatin [Lipitor] 20 mg PO DAILY 05/18/16 02/13/17 History Lisinopril [Zestril] 10 mg PO DAILY 10/20/16 02/13/17 History Albuterol Inhaler [Ventolin Hfa 2 puff INHALATION RT-QID PRN 02/13/17 02/13/17 History Inhaler] Albuterol Nebulized [Ventolin 2.5 mg INHALATION RT-QID 02/13/17 02/13/17 History Nebulized] Furosemide [Lasix] 40 mg PO DAILY 02/13/17 02/13/17 History Metolazone [Zaroxolyn] 2.5 mg PO DAILY 02/13/17 02/13/17 History Spironolactone [Aldactone] 25 mg PO DAILY 02/13/17 02/13/17 History metFORMIN HCL [Glucophage] 500 mg PO BID 02/13/17 02/13/17 History Allergies Allergy/AdvReac Type Severity Reaction Status Date / Time Latex, Natural Rubber Allergy Rash/Hives Verified 02/13/17 20:20 levofloxacin [From Levaquin] Allergy Rash/Hives Verified 02/13/17 20:20 mold Allergy Rash/Hives Verified 02/13/17 20:20 prednisone Allergy Rash/Hives Verified 02/13/17 20:20 STEROIDS Allergy Rash/Hives Uncoded 02/13/17 20:20 Physical Exam Vitals: Vital Signs Temp Pulse Pulse Resp BP BP Pulse Ox 02/14/17 11:47 60 02/14/17 11:41 60 02/14/17 11:20 52 L 18 106/59 93 L 02/14/17 09:35 97.2 F L 60 18 119/69 98 02/14/17 08:04 64 02/14/17 07:57 56 L 97 02/14/17 04:33 68 02/14/17 04:26 66 02/14/17 04:00 97.0 F L 74 22 122/75 98 02/13/17 23:49 97.1 F L 55 L 18 137/86 97 02/13/17 23:46 52 L 18 133/70 100 02/13/17 23:14 83 18 127/64 98 02/13/17 21:59 98.4 F 64 16 137/61 99 02/13/17 21:48 60 02/13/17 20:52 53 L 26 H 129/82 97 02/13/17 19:49 98.5 F 67 30 H 119/57 98 Intake and Output 02/13/17 02/14/17 02/14/17 22:59 06:59 14:59 Intake Total 180 159.587 Balance 180 159.587 Intake: IV 180 Heparin Sodium,Porcine/ 80 D5w Pmx 25,000 unit In Dextrose/Water 1 500ml. bag @ 8.33 UNITS/KG/HR 19 .99 mls/hr IV .Q24H [facility] Rx#:[id number] Magnesium Sulfate-D5w Pmx 100 1 gm In Dextrose/Water 1 100ml.bag @ 50 mls/hr IVPB ONCE ONE Rx#: [id number] Intake, IV Titration 159.587 Amount Heparin Sodium,Porcine/ 159.587 D5w Pmx 25,000 unit In Dextrose/Water 1 500ml. bag @ 8.33 UNITS/KG/HR 19 .99 mls/hr IV .Q24H [facility] Rx#:[id number] Other: Voiding Method Urinal # Voids 1 Weight 120.202 kg 120.4 kg 120.4 kg Patient Weight 02/15/17 06:59 Weight 120.4 kg Head exam was generally normal. There was no scleral icterus or corneal arcus. Mucous membranes were moist.Neck was supple and without jugular venous distension, thyromegaly, or carotid bruits. Carotids were easily palpable bilaterally. There was no adenopathy. There is mild chronic bilateral JVDs are quite prominent on examination. Lung sounds are diminished in lung bases bilaterally along with some scattered rhonchi and scattered expiratory wheezes.Cardiac exam revealed the PMI to be normally situated and sized. The rhythm was regular and no extrasystoles were noted during several minutes of auscultation. The first and second heart sounds were normal and physiologic splitting of the second heart sound was noted. There were no murmurs, rubs, clicks, or gallops. Sternum stable clean and intact and the AICD pocket is intact.Abdominal exam revealed normal bowel sounds. The abdomen was soft, non- tender, and without masses, organomegaly, or appreciable enlargement of the abdominal aorta. Extremities reveal trace edema and there is no cyanosis or clubbing at this point. Results - Laboratory Findings CBC and BMP: 02/13/17 20:08 02/14/17 07:18 PT/INR, D-dimer PT 12.0 sec (9.0-12.0) 02/14/17 01:00 INR 1.2 (<1.2) H 02/14/17 01:00 D-Dimer 0.22 mg/L FEU (<0.60) 02/13/17 20:08 Abnormal lab findings: Abnormal Labs 02/13/17 02/13/17 02/13/17 20:08 20:08 20:08 PT 12.2 H INR 1.2 H APTT Potassium Chloride 94 L Glucose 178 H POC Glucose (mg/dL) Magnesium 1.3 L Total Bilirubin 1.6 H CK-MB (CK-2) 3.4 H* Troponin I 0.056 H* Urine Protein 02/13/17 02/14/17 02/14/17 23:30 01:00 02:53 PT INR 1.2 H APTT Potassium Chloride Glucose POC Glucose (mg/dL) Magnesium Total Bilirubin CK-MB (CK-2) 3.3 H* Troponin I 0.057 H* Urine Protein Trace H 02/14/17 02/14/17 02/14/17 06:06 07:18 07:18 PT INR APTT 38.7 H Potassium Chloride Glucose POC Glucose (mg/dL) 185 H Magnesium Total Bilirubin CK-MB (CK-2) 3.6 H* Troponin I 0.063 H* Urine Protein 02/14/17 02/14/17 02/14/17 07:18 07:18 11:30 PT INR APTT Potassium 3.1 L Chloride Glucose POC Glucose (mg/dL) 189 H Magnesium 1.4 L Total Bilirubin CK-MB (CK-2) Troponin I Urine Protein - Diagnostic Findings Chest x-ray: image reviewed Assessment and Plan Plan: Assessment 1 acute shortness of breath secondary to a combination of COPD/asthmatic exacerbation 2 acute COPD exacerbation, doubt pneumonia, likely an underlying bronchitis versus COPD exacerbation due to recent weather changes and increased humidity and heat wave 3 CHF with ischemic artery myopathy with an ejection fraction of less than 20%, with an acute exacerbation, currently on a combination of diuretics. Echocardiogram was noted 4 coronary artery disease previous bypass surgery 5 hypertension 6 hyperlipidemia 7 diabetes mellitus 8 obesity 9 obstructive sleep apnea nature of 24 currently on A CPAP unit Plan Continue DuoNeb nebulized treatments around the clock. Continue prednisone burst taper. Agree on Vibramycin is in a broad-spectrum antibiotic coverage. Continue IV Lasix 40 mg every 12 hours. Continue Aldactone. Continue Zaroxolyn. Monitor electrolytes. Monitor urine output. Monitor weight. Asked the patient to bring his own CPAP machine from home for the compliance to check and make adjustments if needed. Anticipate recovery. His condition is stable. Hemodynamically stable. We'll continue to follow.
[2017-02-14] MEDS ORDERED: POTASSIUM CHLORIDE ER 20 MEQ TAB.ER PO SCH (15:00)
[2017-02-14] MEDS ORDERED: THIAMINE 100 MG/ML 2 ML VIAL IM STA (15:03)
[2017-02-14] MEDS ORDERED: NICOTINE 14MG/24HR PATCH TRANSDERM STA (15:03)
[2017-02-14] MEDS ORDERED: LORazepam 2 MG/ML SYRINGE IV PRN ×3 (15:03)
[2017-02-14] MEDS: IPRATROPIUM-ALBUTEROL 3 ML NEB INHALATION SCH ×2 (15:17→19:36)
--- NOTE | 2017-02-14 15:32 | P.HPIM ---
History of Present Illness to the burs 61-year-old male patient with came in with worsening shortness of breath, has been going on for about a week, was complaining of orthopnea and questionable PND. He has also noted some increase in lower extremity edema. Also complaining of chest pressure-like sensation, cardiology violated the patient.. A congested cough. No significant sputum production. He had some increased dyspnea wheeze and a congested cough. No fever. No chills. No pleurisy. No hemoptysis. He is known to have obesity along with COPD coronary artery disease and advanced cardiomyopathy probably alcoholic cardiomyopathy with an ejection fraction of less than 20% and the patient has an AICD in place continues to drink alcohol daily. She does have obstructive sleep apnea. He is a nonsmoker. No change in mental status. His chest x-ray showed moderate cardiomegaly without any gross heart failure. A repeat echocardiogram was done that showed impaired LV function with an ejection fraction of less than 20%. No other significant valvular abnormalities noted. There was trace mitral regurgitation. Patient appears to have severe pulmonary hypertension as well There was severe global hypokinesis of the left ventricle. The patient was noted to have a troponin leak with troponin levels of 0.05 and 0.06 respectively 2. The BNP level is 5120. The patient was started on a combination of DuoNeb nebulized treatments around the clock and prednisone 40 mg. The patient was given also diuretics in the emergency department currently on Lasix 40 mg IV every 12 hours. The patient is also on Zaroxolyn 2.5 mg by mouth daily and Aldactone 25 mg by mouth daily. Doxycycline was added as an empiric antibiotic coverage. Review of Systems REVIEW OF SYSTEMS: CONSTITUTIONAL: No fever, no malaise, no fatigue. HEENT: No recent visual problems or hearing problems. Denied any sore throat. CARDIOVASCULAR: As mentioned in HPI PULMONARY: As mentioned in HPI GASTROINTESTINAL: No diarrhea, no nausea, no vomiting, no abdominal pain. Normoactive bowel sounds. NEUROLOGICAL: No headaches, no weakness, no numbness. HEMATOLOGICAL: Denies any bleeding or petechiae. GENITOURINARY: Denies any burning micturition, frequency, or urgency. MUSCULOSKELETAL/RHEUMATOLOGICAL: Denies any joint pain, swelling, or any muscle pain. ENDOCRINE: Denies any polyuria or polydipsia. The rest of the 14-point review of systems is negative. Past Medical History Past Medical History: Coronary Artery Disease (CAD), Chest Pain / Angina, Heart Failure, COPD, Diabetes Mellitus, Hyperlipidemia, Myocardial Infarction ([place]), Osteoarthritis (OA) Additional Past Medical History / Comment(s): Coronary artery disease with a previous bypass surgery, ischemic cardiomyopathy with ejection fraction of less than 20%, COPD, obstructive sleep apnea with an AHI of 24 currently on auto CPAP unit, obesity, hypertension, AICD placement for ischemic cardiomyopathy, Cardiomyopathy, osteoarthritis, diabetes mellitus, hyperlipidemia, hypertension. Last Myocardial Infarction Date:: UNSURE History of Any Multi-Drug Resistant Organisms: None Reported Past Surgical History: AICD, Coronary Bypass/CABG, Heart Catheterization, Orthopedic Surgery Additional Past Surgical History / Comment(s): Pacemaker and AICD- 10/2013, CABG 1 vessel many yrs ago per pt, BILATERAL SHOULDER SURGERY , steel alcides in leg from fracture, bilat shoulders Past Anesthesia/Blood Transfusion Reactions: No Reported Reaction Type of Cardiac Device: Permanent Pacemaker, AICD Device Placement Date:: Past Psychological History: No Psychological Hx Reported Additional Psychological History / Comment(s): Pt resides with his spouse. He has a walker at home but does not need to use it. He drives. He has a nebulizer. Smoking Status: Current every day smoker Past Alcohol Use History: Daily Past Drug Use History: None Reported - Past Family History Mother History Unknown: Yes Father Family Medical History: Myocardial Infarction ([place]) Additional Family Medical History / Comment(s): Father of a [place] at the age of 56yrs. Brother(s) Family Medical History: Cancer Medications and Allergies Home Medications Medication Instructions Recorded Confirmed Type Atorvastatin [Lipitor] 20 mg PO DAILY 05/18/16 02/13/17 History Lisinopril [Zestril] 10 mg PO DAILY 10/20/16 02/13/17 History Albuterol Inhaler [Ventolin Hfa 2 puff INHALATION RT-QID PRN 02/13/17 02/13/17 History Inhaler] Albuterol Nebulized [Ventolin 2.5 mg INHALATION RT-QID 02/13/17 02/13/17 History Nebulized] Furosemide [Lasix] 40 mg PO DAILY 02/13/17 02/13/17 History Metolazone [Zaroxolyn] 2.5 mg PO DAILY 02/13/17 02/13/17 History Spironolactone [Aldactone] 25 mg PO DAILY 02/13/17 02/13/17 History metFORMIN HCL [Glucophage] 500 mg PO BID 02/13/17 02/13/17 History Allergies Allergy/AdvReac Type Severity Reaction Status Date / Time Latex, Natural Rubber Allergy Rash/Hives Verified 02/13/17 20:20 levofloxacin [From Levaquin] Allergy Rash/Hives Verified 02/13/17 20:20 mold Allergy Rash/Hives Verified 02/13/17 20:20 prednisone Allergy Rash/Hives Verified 02/13/17 20:20 STEROIDS Allergy Rash/Hives Uncoded 02/13/17 20:20 Physical Exam Vitals: Vital Signs Temp Pulse Pulse Resp BP BP Pulse Ox 02/14/17 15:18 66 02/14/17 11:47 60 02/14/17 11:41 60 02/14/17 11:20 52 L 18 106/59 93 L 02/14/17 09:35 97.2 F L 60 18 119/69 98 02/14/17 08:04 64 02/14/17 07:57 56 L 97 02/14/17 04:33 68 02/14/17 04:26 66 02/14/17 04:00 97.0 F L 74 22 122/75 98 02/13/17 23:49 97.1 F L 55 L 18 137/86 97 02/13/17 23:46 52 L 18 133/70 100 02/13/17 23:14 83 18 127/64 98 02/13/17 21:59 98.4 F 64 16 137/61 99 02/13/17 21:48 60 02/13/17 20:52 53 L 26 H 129/82 97 02/13/17 19:49 98.5 F 67 30 H 119/57 98 Intake and Output 02/14/17 02/14/17 02/14/17 06:59 14:59 22:59 Intake Total 180 359.587 Output Total 560 Balance 180 -200.413 Intake: IV 180 Heparin Sodium,Porcine/ 80 D5w Pmx 25,000 unit In Dextrose/Water 1 500ml. bag @ 8.33 UNITS/KG/HR 19 .99 mls/hr IV .Q24H [facility] Rx#:[id number] Magnesium Sulfate-D5w Pmx 100 1 gm In Dextrose/Water 1 100ml.bag @ 50 mls/hr IVPB ONCE ONE Rx#: [id number] Intake, IV Titration 159.587 Amount Heparin Sodium,Porcine/ 159.587 D5w Pmx 25,000 unit In Dextrose/Water 1 500ml. bag @ 8.33 UNITS/KG/HR 19 .99 mls/hr IV .Q24H [facility] Rx#:[id number] Oral 200 Output: Urine 560 Other: Voiding Method Urinal # Voids 1 Weight 120.4 kg 120.4 kg Patient Weight 02/15/17 06:59 Weight 120.4 kg PHYSICAL EXAMINATION: GENERAL: The patient is alert and oriented x3, not in any acute distress. Well developed, well nourished. HEENT: Pupils are round and equally reacting to light. EOMI. No scleral icterus. No conjunctival pallor. Normocephalic, atraumatic. No pharyngeal erythema. No thyromegaly. CARDIOVASCULAR: S1 and S2 present. No murmurs, rubs, or gallops. I did not any inpatient any significant JVD or pedal edema PULMONARY: Does have expiratory wheezing, decreased air entry and bilateral lung rene andcracklesareappreciated. ABDOMEN: Soft, nontender, nondistended, normoactive bowel sounds. No palpable organomegaly. MUSCULOSKELETAL: No joint swelling or deformity. EXTREMITIES: No cyanosis, clubbing, or pedal edema. NEUROLOGICAL: Gross neurological examination did not reveal any focal deficits. SKIN: No rashes. Results CBC & Chem 7: 02/13/17 20:08 02/14/17 13:43 Labs: Abnormal Lab Results - Last 24 Hours (Table) 02/13/17 02/13/17 02/13/17 Range/Units 20:08 20:08 20:08 PT 12.2 H (9.0-12.0) sec INR 1.2 H (<1.2) APTT (22.0-30.0) sec Potassium (3.5-5.1) mmol/L Chloride 94 L (98-107) mmol/L Glucose 178 H (74-99) mg/dL POC Glucose (mg/dL) (75-99) mg/dL Magnesium 1.3 L (1.6-2.3) mg/dL Total Bilirubin 1.6 H (0.2-1.3) mg/dL CK-MB (CK-2) 3.4 H* (0.0-2.4) ng/mL Troponin I 0.056 H* (0.000-0.034) ng/mL Urine Protein (Negative) 02/13/17 02/14/17 02/14/17 Range/Units 23:30 01:00 02:53 PT (9.0-12.0) sec INR 1.2 H (<1.2) APTT (22.0-30.0) sec Potassium (3.5-5.1) mmol/L Chloride (98-107) mmol/L Glucose (74-99) mg/dL POC Glucose (mg/dL) (75-99) mg/dL Magnesium (1.6-2.3) mg/dL Total Bilirubin (0.2-1.3) mg/dL CK-MB (CK-2) 3.3 H* (0.0-2.4) ng/mL Troponin I 0.057 H* (0.000-0.034) ng/mL Urine Protein Trace H (Negative) 02/14/17 02/14/17 02/14/17 Range/Units 06:06 07:18 07:18 PT (9.0-12.0) sec INR (<1.2) APTT 38.7 H (22.0-30.0) sec Potassium (3.5-5.1) mmol/L Chloride (98-107) mmol/L Glucose (74-99) mg/dL POC Glucose (mg/dL) 185 H (75-99) mg/dL Magnesium (1.6-2.3) mg/dL Total Bilirubin (0.2-1.3) mg/dL CK-MB (CK-2) 3.6 H* (0.0-2.4) ng/mL Troponin I 0.063 H* (0.000-0.034) ng/mL Urine Protein (Negative) 02/14/17 02/14/17 02/14/17 Range/Units 07:18 07:18 11:30 PT (9.0-12.0) sec INR (<1.2) APTT (22.0-30.0) sec Potassium 3.1 L (3.5-5.1) mmol/L Chloride (98-107) mmol/L Glucose (74-99) mg/dL POC Glucose (mg/dL) 189 H (75-99) mg/dL Magnesium 1.4 L (1.6-2.3) mg/dL Total Bilirubin (0.2-1.3) mg/dL CK-MB (CK-2) (0.0-2.4) ng/mL Troponin I (0.000-0.034) ng/mL Urine Protein (Negative) Thrombosis Risk Factor Assmnt - Choose All That Apply Any of the Below Risk Factors Present?: Yes Each Factor Represents 1 point: Abnormal pulmonary function (COPD), Heart failure (<1month), Obesity (BMI >25) Other Risk Factors: Yes Each Risk Factor Represents 2 Points: Age 61-74 years Thrombosis Risk Factor Assessment Total Risk Factor Score: 5 Thrombosis Risk Factor Assessment Level: High Risk Assessment and Plan Plan: #1 acute hypoxic as well as hypercapnic respiratory failure A she mostly has COPD exacerbation for which patient was started oral steroids and inhalational treatments treatment patient may have had complained of CHF exacerbation on admission is able to continue IV Lasix for one more night. 2 Severe pulmonary hypertension 3 CHF with possible scabies cardiomyopathy with an ejection fraction of less than 20%, with an acute exacerbation, currently on a combination of diuretics. \ 4 coronary artery disease previous bypass surgery 5 hypertension 6 hyperlipidemia 7 diabetes mellitus 8 obesity 9 obstructive sleep apnea nature of 24 currently on A CPAP unit #10 continued use alcohol use patient will be watched for operations consultant withdrawals and will be on withdrawal protocol
[2017-02-14] MEDS: DOXYCYCLINE 50 MG CAP PO SCH ×2 (16:05→21:06)
[2017-02-14] MEDS: predniSONE 20 MG TAB PO SCH (16:08)
[2017-02-14] MEDS: THIAMINE 100 MG TAB PO SCH (16:09)
[2017-02-14 16:49] LABS: Glucose,Whole Blood 143 mg/dL (75-99)
[2017-02-14] MEDS: SYMBICORT 160-4.5 MCG INHALER INHALATION SCH (19:36)
[2017-02-14 20:56] LABS: Glucose,Whole Blood 237 mg/dL (75-99)
[2017-02-14] MEDS: HEPARIN SODIUM,PORCINE 5,000 UNIT/ML 1 ML VIAL SQ SCH (21:08)
[2017-02-14] MEDS: FUROSEMIDE 10 MG/ML 4 ML VIAL IV SCH (21:08)
[2017-02-15] MEDS: IPRATROPIUM-ALBUTEROL 3 ML NEB INHALATION SCH ×3 (00:10→11:45)
[2017-02-15 03:59] LABS: Anion Gap 9 mmol/L; Blood Urea Nitrogen 25 mg/dL (9-20); Calcium 9.1 mg/dL (8.4-10.2); Carbon Dioxide 34 mmol/L (22-30); Chloride 90 mmol/L (98-107); Glucose 193 mg/dL (74-99); Magnesium 1.8 mg/dL (1.6-2.3); Non-African American GFR(MDRD) >60 (>60 ml/min/1.73 sqM); Potassium 4.2 mmol/L (3.5-5.1); Sodium 133 mmol/L (137-145)
[2017-02-15 04:05] LABS: Basophils % (A) 0 %; CH 32.4; CHCM 34.1; Eosinophils # (A) 0.1 k/uL (0-0.7); Eosinophils % (A) 1 %; HDW 2.86; HGB 13.6 gm/dL (13.0-17.5); Luc # (Auto) 0.06; Luc % (Auto) 1; Lymphocytes # (A) 0.8 k/uL (1.0-4.8); Lymphocytes % (A) 11 %; MCH 32.4 pg (25.0-35.0); MCV 95.4 fL (80.0-100.0); Mean Platelet Volume 7.7; Monocytes # (A) 0.3 k/uL (0-1.0); Monocytes % (A) 4 %; Neutrophils # (A) 6.3 k/uL (1.3-7.7); Neutrophils % (A) 83 %; RBC 4.19 m/uL (4.30-5.90); RDW 14.9 % (11.5-15.5); WBC 7.6 k/uL (3.8-10.6); WBC (Perox) 7.89
[2017-02-15 06:28] LABS: Glucose,Whole Blood 158 mg/dL (75-99)
[2017-02-15] MEDS: metFORMIN 500 MG TAB PO SCH (06:59)
[2017-02-15] MEDS: SYMBICORT 160-4.5 MCG INHALER INHALATION SCH (07:34)
[2017-02-15] MEDS: NITROGLYCERIN OINT 1 INCH/GM PACKET TOPICAL SCH ×2 (08:49→12:45)
[2017-02-15] MEDS: SPIRONOLACTONE 25 MG TAB PO SCH (08:52)
[2017-02-15] MEDS: ATORVASTATIN 20 MG TAB PO SCH (08:52)
[2017-02-15] MEDS: DOXYCYCLINE 50 MG CAP PO SCH (08:52)
[2017-02-15] MEDS: LISINOPRIL 10 MG TAB PO SCH (08:52)
[2017-02-15] MEDS: predniSONE 20 MG TAB PO SCH (08:52)
[2017-02-15] MEDS: METOLAZONE 2.5 MG TAB PO SCH (08:52)
[2017-02-15] MEDS: FUROSEMIDE 10 MG/ML 4 ML VIAL IV SCH (08:53)
[2017-02-15] MEDS: HEPARIN SODIUM,PORCINE 5,000 UNIT/ML 1 ML VIAL SQ SCH (08:53)
[2017-02-15] MEDS ORDERED: NICOTINE 14MG/24HR PATCH TRANSDERM SCH (09:00)
[2017-02-15 09:05] VITALS: TEMP 97
[2017-02-15 11:54] LABS: Glucose,Whole Blood 128 mg/dL (75-99)
[2017-02-15 12:45] VITALS: BP 115/61; PULSE 66; RESP 18
[2017-02-15] MEDS: THIAMINE 100 MG TAB PO SCH (12:46)
--- NOTE | 2017-02-15 12:52 | P.DS ---
Providers Date of admission: 02/13/17 23:40 Expected date of discharge: 02/15/17 Attending physician: Ethan Song Consults: 02/13/17 23:35 Consult Physician Routine Consulting Provider: Glen Carroll Consult Reason/Comments: CHF exacerbation Do you want consulting provider notified?: Yes 02/14/17 10:04 Consult Physician Routine Consulting Provider: Gisella Iraheta Consult Reason/Comments: COPD exacerbation Do you want consulting provider notified?: Yes Primary care physician: René Hernandez 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 He is known to have obesity along with COPD coronary artery disease and advanced cardiomyopathy probably alcoholic cardiomyopathy with an ejection fraction of less than 20%, obstructive sleep apnea and the patient has an AICD in place continues to drink alcohol daily. Chest x-ray showed moderate cardiomegaly without gross heart failure. Evaluated by cardiology and pulmonary. A repeat echocardiogram was done that showed impaired LV function with an ejection fraction of less than 20%. No other significant valvular abnormalities noted. There was trace mitral regurgitation. Patient appears to have severe pulmonary hypertension as well There was severe global hypokinesis of the left ventricle. The patient was noted to have a troponin leak with troponin levels of 0.05 and 0.06 respectively 2. The BNP level is 5120. The patient was started on a combination of DuoNeb nebulized treatments around the clock, steroids, diuretics and empiric antibiotics. Significant clinical improvement. Patient has been cleared for discharge by both cardiology and pulmonary. Patient is being discharged home in a stable condition with guarded prognosis. The impression and plan of care has been dictated as directed as a scribe. : I performed a H&P examination of this patient and discussed the same with the dictator. I agree with the dictator's note. Any additional findings/opinions/ etc. will be noted. Patient Condition at Discharge: Stable Plan - Discharge Summary New Discharge Prescriptions: New Budesonide-Formot 160-4.5 Mcg [Symbicort 160-4.5 Mcg Inhaler] 2 puff INHALATION RT-BID #1 inh Doxycycline [Vibramycin] 100 mg PO BID #10 cap Nicotine 14Mg/24Hr Patch [Habitrol] 1 patch TRANSDERM DAILY #30 patch predniSONE 10 mg PO DIRECTED #30 tab Thiamine [Vitamin B-1] 100 mg PO DAILY #30 tab Furosemide [Lasix] 20 mg PO HS #15 tablet Furosemide [Lasix] 40 mg PO DAILY #30 tablet Continue Atorvastatin [Lipitor] 20 mg PO DAILY Lisinopril [Zestril] 10 mg PO DAILY Metolazone [Zaroxolyn] 2.5 mg PO DAILY metFORMIN HCL [Glucophage] 500 mg PO BID Spironolactone [Aldactone] 25 mg PO DAILY Albuterol Nebulized [Ventolin Nebulized] 2.5 mg INHALATION RT-QID Albuterol Inhaler [Ventolin Hfa Inhaler] 2 puff INHALATION RT-QID PRN PRN Reason: Dyspnea Discharge Medication List Atorvastatin [Lipitor] 20 mg PO DAILY 05/18/16 [History] Lisinopril [Zestril] 10 mg PO DAILY 10/20/16 [History] Albuterol Inhaler [Ventolin Hfa Inhaler] 2 puff INHALATION RT-QID PRN 02/13/17 [ History] Albuterol Nebulized [Ventolin Nebulized] 2.5 mg INHALATION RT-QID 02/13/17 [ History] Metolazone [Zaroxolyn] 2.5 mg PO DAILY 02/13/17 [History] Spironolactone [Aldactone] 25 mg PO DAILY 02/13/17 [History] metFORMIN HCL [Glucophage] 500 mg PO BID 02/13/17 [History] Budesonide-Formot 160-4.5 Mcg [Symbicort 160-4.5 Mcg Inhaler] 2 puff INHALATION RT-BID #1 inh 02/15/17 [Rx] Doxycycline [Vibramycin] 100 mg PO BID #10 cap 02/15/17 [Rx] Furosemide [Lasix] 20 mg PO HS #15 tablet 02/15/17 [Rx] Furosemide [Lasix] 40 mg PO DAILY #30 tablet 02/15/17 [Rx] Nicotine 14Mg/24Hr Patch [Habitrol] 1 patch TRANSDERM DAILY #30 patch 02/15/17 [ Rx] Thiamine [Vitamin B-1] 100 mg PO DAILY #30 tab 02/15/17 [Rx] predniSONE 10 mg PO DIRECTED #30 tab 02/15/17 [Rx] Follow up Appointment(s)/Referral(s): Mary Merritt MD [Primary Care Provider] - 3 Days Saulo Birmingham MD [STAFF PHYSICIAN] - 02/28/17 3:30 pm Gislela Iraheta MD [STAFF PHYSICIAN] - 2 Weeks Ambulatory/Diagnostic Orders: Complete Blood Count w/diff [LAB.AMB] Time Frame: 3 Days, Location: Determined By Patient Activity/Diet/Wound Care/Special Instructions: CPAP as advised per pulmonary. Confirm cardiology follow-up appointment prior to discharge. 97% on RA after ambulation. Diet: Cardiac Activity: Limited until follow up No smoking [facility] - [phone]
--- NOTE | 2017-02-15 13:25 | P.PN ---
Subjective As a pleasant 61-year-old gentleman who follows with Dr. Moore in the office. He has a known history of CHF, coronary artery disease status post CABG , ischemic cardiomyopathy with a known ejection fraction of less than 20%, status post AICD placement, COPD, atrial tachycardia, diabetes, pulmonary hypertension and is occurring every day smoker. Presented to the emergency department with complaints of increasing shortness of breath over the last several days as well as dizziness, left-sided chest discomfort and back discomfort as well as lower extremity weakness with activity. He also complained of some lower extremity edema that had been occurring off and on over the last several weeks. Chest x-ray on admit admission showed moderate cardiomegaly without gross heart failure, no change compared to previous exam. Mesial level was found to be low at 1.3, patient's BNP was 5120 and he had a normal d-dimer. Troponin levels were noted to be slightly elevated but were not consistent with acute myocardial injury. On examination, patient is sitting up at the side of the bed. Feeling quite a bit better today. He is breathing easier and his edema has significantly improved. Objective - Vital Signs Vital signs: Vital Signs Temp 97 F L 02/15/17 08:45 Pulse 72 02/15/17 12:03 Resp 18 02/15/17 11:45 BP 115/61 02/15/17 11:45 Pulse Ox 97 02/15/17 11:45 Intake & Output 02/14/17 02/15/17 02/15/17 18:59 06:59 18:59 Intake Total 359.587 600 Output Total 560 Balance -200.413 600 Weight 120.4 kg 115.8 kg Intake: Intake, IV Titration 159.587 Amount Heparin Sodium,Porcine/ 159.587 D5w Pmx 25,000 unit In Dextrose/Water 1 500ml. bag @ 8.33 UNITS/KG/HR 19 .99 mls/hr IV .Q24H [facility] Rx#:[id number] Oral 200 600 Output: Urine 560 Other: Voiding Method Urinal Urinal Urinal # Voids 1 - Exam PHYSICAL EXAMINATION: HEENT: Head is atraumatic, normocephalic. Pupils equal, round. Neck is supple. There is no elevated jugular venous pressure. HEART EXAMINATION: Heart sounds regular, S1 and S2 normal with a systolic murmur. CHEST EXAMINATION: Lungs reveal improved air entry throughout with scattered expiratory wheezing, no crackles or rhonchi. No chest wall tenderness is noted on palpation or with deep breathing. ABDOMEN: Soft, obese, nontender. Bowel sounds are heard. No organomegaly noted. EXTREMITIES: 1+ peripheral pulses with evidence of trace peripheral edema and no calf tenderness noted. NEUROLOGIC patient is awake, alert and oriented x3. . - Labs CBC & Chem 7: 02/15/17 03:35 02/15/17 03:35 Labs: Abnormal Lab Results - Last 24 Hours (Table) 02/14/17 02/14/17 02/15/17 Range/Units 16:42 20:49 03:35 RBC 4.19 L (4.30-5.90) m/uL Lymphocytes # 0.8 L (1.0-4.8) k/uL Sodium (137-145) mmol/L Chloride (98-107) mmol/L Carbon Dioxide (22-30) mmol/L BUN (9-20) mg/dL Glucose (74-99) mg/dL POC Glucose (mg/dL) 143 H 237 H (75-99) mg/dL 02/15/17 02/15/17 02/15/17 Range/Units 03:35 06:15 11:34 RBC (4.30-5.90) m/uL Lymphocytes # (1.0-4.8) k/uL Sodium 133 L (137-145) mmol/L Chloride 90 L (98-107) mmol/L Carbon Dioxide 34 H (22-30) mmol/L BUN 25 H (9-20) mg/dL Glucose 193 H (74-99) mg/dL POC Glucose (mg/dL) 158 H 128 H (75-99) mg/dL Assessment and Plan Plan: Assessment and plan #1 symptoms of progressively worsening shortness of breath and cough, likely secondary to COPD exacerbation with mild component of acute on chronic systolic congestive heart failure #2 mild troponin leak, not consistent with acute myocardial injury #3 ischemic cardiomyopathy, last known ejection fraction 20% #4 moderate to severe pulmonary hypertension #5 nicotine dependence #6 diabetes #7 hypokalemia, improved #8 hypomagnesemia, improved From cardiology's perspective, we again discussed importance of smoking cessation with the patient. Discussed the need to follow a low sodium diet as well. From our perspective, patient is stable for discharge home today on Lasix 40 mg every morning and 20 mg at 2 PM. He'll follow-up with Dr. Birmingham in the office. GREETER note has been reviewed, I agree with a documented findings and plan of care. Patient was seen and examined.
--- NOTE | 2017-02-15 14:41 | P.PN ---
Subjective 61-year-old male patient with came in to the emergency department yesterday because of worsening shortness of breath. He has also noted some increase in lower extremity edema. Denies having any chest pain. A congested cough. No significant sputum production. He had some increased dyspnea wheeze and a congested cough. No fever. No chills. No pleurisy. No hemoptysis. He is known to me from previous hospitalizations. He is known to have obesity along with COPD coronary artery disease and advanced cardiomyopathy of an ischemic type with an ejection fraction of less than 20% and the patient has an AICD in place. More recently, I have diagnosed this patient having obstructive sleep apnea, moderately severe with an apnea popping index of 24.5, worsen the supine body position and based on that the patient was treated with an auto CPAP unit with a minimum pressure of 5 and a maximum pressure of 17 with an air fit10 nasal pillows and he was supposed to follow-up with me at the sleep Center at the later stage. He is a nonsmoker. No change in mental status. His chest x- ray showed moderate cardiomegaly without any gross heart failure. A repeat echocardiogram was done that showed impaired LV function with an ejection fraction of less than 20%. No other significant valvular abnormalities noted. There was trace mitral regurgitation. Right ventricular pressure was estimated to be 9 mmHg. There was severe global hypokinesis of the left ventricle. The patient was noted to have a troponin leak with troponin levels of 0.05 and 0.06 respectively 2. The BNP level is 5120. The patient was started on a combination of DuoNeb nebulized treatments around the clock and prednisone burst taper starting with 40 mg. The patient was given also diuretics in the emergency department currently on Lasix 40 mg IV every 12 hours. The patient is also on Zaroxolyn 2.5 mg by mouth daily and Aldactone 25 mg by mouth daily. Doxycycline was added as an empiric antibiotic coverage. The patient is seen again today 02/15/2017 in follow-up on the selective care unit. He is awake and alert in no acute distress. He is breathing quite a bit better today as compared to yesterday. He is maintaining good O2 saturations in the upper 90s on room air. He has been afebrile. Hemodynamically stable. He remains in a negative balance. He was continued on Lasix 40 mg IV every 12 hours. He is treated for both congestive heart failure and a COPD exacerbation. Feels nearly back to his baseline. He is anxious to go home. Objective - Vital Signs Vital signs: Vital Signs Temp 97 F L 02/15/17 08:45 Pulse 72 02/15/17 12:03 Resp 18 02/15/17 11:45 BP 115/61 02/15/17 11:45 Pulse Ox 97 02/15/17 11:45 Intake & Output 02/14/17 02/15/17 02/15/17 18:59 06:59 18:59 Intake Total 359.587 600 Output Total 560 400 Balance -200.413 600 -400 Weight 120.4 kg 115.8 kg Intake: Intake, IV Titration 159.587 Amount Heparin Sodium,Porcine/ 159.587 D5w Pmx 25,000 unit In Dextrose/Water 1 500ml. bag @ 8.33 UNITS/KG/HR 19 .99 mls/hr IV .Q24H [facility] Rx#:[id number] Oral 200 600 Output: Urine 560 400 Other: Voiding Method Urinal Urinal Urinal # Voids 1 - Exam Head exam was generally normal. There was no scleral icterus or corneal arcus. Mucous membranes were moist.Neck was supple and without jugular venous distension, thyromegaly, or carotid bruits. Carotids were easily palpable bilaterally. There was no adenopathy. There is mild chronic bilateral JVDs are quite prominent on examination. Lung sounds are diminished in lung bases bilaterally along with some scattered rhonchi and scattered expiratory wheezes.Cardiac exam revealed the PMI to be normally situated and sized. The rhythm was regular and no extrasystoles were noted during several minutes of auscultation. The first and second heart sounds were normal and physiologic splitting of the second heart sound was noted. There were no murmurs, rubs, clicks, or gallops. Sternum stable clean and intact and the AICD pocket is intact.Abdominal exam revealed normal bowel sounds. The abdomen was soft, non- tender, and without masses, organomegaly, or appreciable enlargement of the abdominal aorta. Extremities reveal trace edema and there is no cyanosis or clubbing at this point. - Labs CBC & Chem 7: 02/15/17 03:35 02/15/17 03:35 Labs: Abnormal Lab Results - Last 24 Hours (Table) 02/14/17 02/14/17 02/15/17 Range/Units 16:42 20:49 03:35 RBC 4.19 L (4.30-5.90) m/uL Lymphocytes # 0.8 L (1.0-4.8) k/uL Sodium (137-145) mmol/L Chloride (98-107) mmol/L Carbon Dioxide (22-30) mmol/L BUN (9-20) mg/dL Glucose (74-99) mg/dL POC Glucose (mg/dL) 143 H 237 H (75-99) mg/dL 02/15/17 02/15/17 02/15/17 Range/Units 03:35 06:15 11:34 RBC (4.30-5.90) m/uL Lymphocytes # (1.0-4.8) k/uL Sodium 133 L (137-145) mmol/L Chloride 90 L (98-107) mmol/L Carbon Dioxide 34 H (22-30) mmol/L BUN 25 H (9-20) mg/dL Glucose 193 H (74-99) mg/dL POC Glucose (mg/dL) 158 H 128 H (75-99) mg/dL Assessment and Plan Plan: Assessment 1 acute shortness of breath secondary to a combination of COPD/asthmatic exacerbation 2 acute COPD exacerbation, doubt pneumonia, likely an underlying bronchitis versus COPD exacerbation due to recent weather changes and increased humidity and heat wave 3 CHF with ischemic artery myopathy with an ejection fraction of less than 20%, with an acute exacerbation, currently on a combination of diuretics. Echocardiogram was noted 4 coronary artery disease previous bypass surgery 5 hypertension 6 hyperlipidemia 7 diabetes mellitus 8 obesity 9 obstructive sleep apnea nature of 24 currently on A CPAP unit Plan The patient was seen and evaluated by Dr. Iraheta. He is cleared for discharge from the pulmonary standpoint. He'll complete his course of empiric antibiotics. Complete his prednisone burst taper. Switch back to oral diuretics. He will follow-up in our office in 1-2 weeks' time. He is asked to bring his CPAP and for compliance check and adjustments if necessary. He was also educated regarding the importance of complete smoking cessation. Patient verbalizes understanding. He will call sooner with any recurrence of symptoms or other questions or concerns.
== END 2017-02-15 13:50 | disposition home or self-care (01) | DRG 190 ==
LOC: EC 19:48 → 6SEL 23:40
PROVIDERS: ADMIT Internal Medicine; ATTEND Internal Medicine
DX: J44.1 Chronic obstructive pulmonary disease with (acute) exacerbation (principal); J96.02 Acute respiratory failure with hypercapnia; I50.23 Acute on chronic systolic (congestive) heart failure; I27.2 Other secondary pulmonary hypertension; J96.01 Acute respiratory failure with hypoxia; I42.6 Alcoholic cardiomyopathy; J45.901 Unspecified asthma with (acute) exacerbation; I11.0 Hypertensive heart disease with heart failure; E83.42 Hypomagnesemia; E11.9 Type 2 diabetes mellitus without complications; I25.10 Atherosclerotic heart disease of native coronary artery without angina pectoris; I25.5 Ischemic cardiomyopathy; E78.5 Hyperlipidemia, unspecified; I25.2 Old myocardial infarction; M16.0 Bilateral primary osteoarthritis of hip; Z95.1 Presence of aortocoronary bypass graft; G47.33 Obstructive sleep apnea (adult) (pediatric); Z95.810 Presence of automatic (implantable) cardiac defibrillator; F17.200 Nicotine dependence, unspecified, uncomplicated; E87.6 Hypokalemia; E66.9 Obesity, unspecified; Z68.34 Body mass index [BMI] 34.0-34.9, adult; Z82.49 Family history of ischemic heart disease and other diseases of the circulatory system; Z79.84 Long term (current) use of oral hypoglycemic drugs; Z79.899 Other long term (current) drug therapy; Z88.1 Allergy status to other antibiotic agents; Z91.040 Latex allergy status; Z88.8 Allergy status to other drugs, medicaments and biological substances; Z91.048 Other nonmedicinal substance allergy status
CPT/HCPCS: 36415; 71020; 80048; 80053; 81003; 82550; 82553; 83735; 83880; 84132; 84484; 85025; 85379; 85610; 85730; 93005; 93306; 94640; 94760; 96374; 99285

== ENCOUNTER 2017-09-11 11:40 | Inpatient (IN) | payer MEDICARE ==
[2017-09-11] MEDS ORDERED: IPRATROPIUM-ALBUTEROL 3 ML NEB INHALATION STA (11:44)
[2017-09-11] MEDS ORDERED: MAGNESIUM SULFATE-D5W PMX 1 GM in DEXTROSE/WATER 1 100ML.BAG IVPB STA (11:44)
--- NOTE | 2017-09-11 11:48 | ED ---
SOB HPI - General Stated Complaint: SOB Time Seen by Provider: 09/11/17 11:40 Source: patient, EMS, RN notes reviewed Mode of arrival: EMS - History of Present Illness Initial Comments: This is a 62-year-old male history of COPD who states he had the onset last night of shortness of breath which is typical of his COPD he has been refractory to his home treatments he's had 7 attacks this morning already. He was brought in by EMS he was given 125 mg a slight Medrol in addition to an updraft. He states he is not feeling much better. He denies any overt chest pain fevers chills sweats phlegm production. No overt rhinorrhea. MD Complaint: shortness of breath - Related Data Home Medications Medication Instructions Recorded Confirmed Atorvastatin [Lipitor] 20 mg PO DAILY 05/18/16 09/11/17 Albuterol Nebulized [Ventolin 2.5 mg INHALATION RT-QID 02/13/17 09/11/17 Nebulized] metFORMIN HCL [Glucophage] 500 mg PO BID 02/13/17 09/11/17 Albuterol Inhaler [Ventolin Hfa 2 puff INHALATION RT-Q4H PRN 05/28/17 09/11/17 Inhaler] Metoprolol Succinate [Toprol XL] 100 mg PO DAILY 05/28/17 09/11/17 Aspirin [Adult Low Dose Aspirin EC] 81 mg PO DAILY 09/11/17 09/11/17 Furosemide [Lasix] 40 mg PO BID 09/11/17 09/11/17 Spironolactone [Aldactone] 25 mg PO BID 09/11/17 09/11/17 Allergies Allergy/AdvReac Type Severity Reaction Status Date / Time Latex, Natural Rubber Allergy Rash/Hives Verified 09/11/17 12:01 levofloxacin [From Levaquin] Allergy Rash/Hives Verified 09/11/17 12:01 mold Allergy Rash/Hives Verified 09/11/17 12:01 prednisone Allergy Rash/Hives Verified 09/11/17 12:01 STEROIDS Allergy Rash/Hives Uncoded 02/13/17 20:20 Review of Systems ROS Statement: Those systems with pertinent positive or pertinent negative responses have been documented in the HPI. ROS Other: All systems not noted in ROS Statement are negative. Past Medical History Past Medical History: Coronary Artery Disease (CAD), Chest Pain / Angina, Heart Failure, COPD, Diabetes Mellitus, Hyperlipidemia, Myocardial Infarction ([place]), Osteoarthritis (OA) Additional Past Medical History / Comment(s): Coronary artery disease with a previous bypass surgery, ischemic cardiomyopathy with ejection fraction of less than 20%, COPD, obstructive sleep apnea with an AHI of 24 currently on auto CPAP unit, obesity, hypertension, AICD placement for ischemic cardiomyopathy, Cardiomyopathy, osteoarthritis, diabetes mellitus, hyperlipidemia, hypertension. Last Myocardial Infarction Date:: UNSURE History of Any Multi-Drug Resistant Organisms: None Reported Past Surgical History: AICD, Coronary Bypass/CABG, Heart Catheterization, Orthopedic Surgery Additional Past Surgical History / Comment(s): Pacemaker and AICD- 10/2013, CABG 1 vessel many yrs ago per pt, BILATERAL SHOULDER SURGERY , steel alcides in leg from fracture, bilat shoulders Past Anesthesia/Blood Transfusion Reactions: No Reported Reaction Type of Cardiac Device: Permanent Pacemaker, AICD Device Placement Date:: Past Psychological History: No Psychological Hx Reported Additional Psychological History / Comment(s): Pt resides with his spouse. He has a walker at home but does not need to use it. He drives. He has a nebulizer. Smoking Status: Current every day smoker Past Alcohol Use History: Rare Additional Past Alcohol Use History / Comment(s): Pt states he started smoking in 1970 and was a 2 ppd smoker for years, he is now a 1 ppd smoker. Pt states he drinks beer daily and usually 6-8 beers a day. Yesterday, he drank 4 beers. Past Drug Use History: None Reported - Past Family History Mother History Unknown: Yes Father Family Medical History: Myocardial Infarction ([place]) Additional Family Medical History / Comment(s): Father of a [place] at the age of 56yrs. Brother(s) Family Medical History: Cancer General Exam - General Exam Comments Initial Comments: This is a well-developed well-nourished awake alert oriented times 3 male General appearance: alert, anxious Head exam: Present: atraumatic, normocephalic, normal inspection Eye exam: Present: normal appearance, PERRL, EOMI. Absent: scleral icterus, conjunctival injection, periorbital swelling ENT exam: Present: normal exam, mucous membranes moist Neck exam: Present: normal inspection. Absent: tenderness, meningismus, lymphadenopathy Respiratory exam: Present: wheezes, accessory muscle use, decreased breath sounds. Absent: respiratory distress, rales, rhonchi, stridor Cardiovascular Exam: Present: regular rate, normal rhythm, normal heart sounds. Absent: systolic murmur, diastolic murmur, rubs, gallop, clicks GI/Abdominal exam: Present: soft, normal bowel sounds. Absent: distended, tenderness, guarding, rebound, rigid Extremities exam: Present: normal inspection, full ROM, normal capillary refill. Absent: tenderness, pedal edema, joint swelling, calf tenderness Back exam: Present: normal inspection Neurological exam: Present: alert, oriented X3, CN II-XII intact Psychiatric exam: Present: normal affect, normal mood Skin exam: Present: warm, dry, intact, normal color. Absent: rash Course Vital Signs 09/11/17 09/11/17 09/11/17 11:42 12:03 12:12 Temperature 97 F L Pulse Rate 60 60 60 Respiratory 22 Rate Blood Pressure 130/88 O2 Sat by Pulse 94 L Oximetry 09/11/17 09/11/17 09/11/17 13:06 14:21 15:48 Temperature Pulse Rate 60 61 60 Respiratory 20 18 18 Rate Blood Pressure 114/55 145/80 139/76 O2 Sat by Pulse 98 98 99 Oximetry - Reevaluation(s) Reevaluation #1: 09/11/17 16:13 Reevaluation patient reveals no improvement thus far 3 does appear to be breathing somewhat better. He feels no better Medical Decision Making - Medical Decision Making I did discuss findings with the patient he will be admitted he does present with symptoms consistent with COPD exacerbation with CHF. I did discuss case with Dr. An patient will be admitted with consultation by Dr. Iraheta. - Lab Data Result diagrams: 09/11/17 11:52 09/11/17 11:52 Lab Results 09/11/17 09/11/17 09/11/17 Range/Units 11:52 11:52 11:52 WBC 5.8 (3.8-10.6) k/uL RBC 3.78 L (4.30-5.90) m/uL Hgb 10.9 L (13.0-17.5) gm/dL Hct 36.8 L (39.0-53.0) % MCV 97.3 (80.0-100.0) fL MCH 28.8 (25.0-35.0) pg MCHC 29.6 L (31.0-37.0) g/dL RDW 15.8 H (11.5-15.5) % Plt Count 136 L (150-450) k/uL Neutrophils % 74 % Lymphocytes % 15 % Monocytes % 8 % Eosinophils % 2 % Basophils % 1 % Neutrophils # 4.3 (1.3-7.7) k/uL Lymphocytes # 0.9 L (1.0-4.8) k/uL Monocytes # 0.4 (0-1.0) k/uL Eosinophils # 0.1 (0-0.7) k/uL Basophils # 0.0 (0-0.2) k/uL Hypochromasia Marked PT (9.0-12.0) sec INR (<1.2) APTT (22.0-30.0) sec Sodium 141 (137-145) mmol/L Potassium 3.9 (3.5-5.1) mmol/L Chloride 100 (98-107) mmol/L Carbon Dioxide 29 (22-30) mmol/L Anion Gap 12 mmol/L BUN 28 H (9-20) mg/dL Creatinine 1.00 (0.66-1.25) mg/dL Est GFR (MDRD) Af Amer >60 (>60 ml/min/1.73 sqM) Est GFR (MDRD) Non-Af >60 (>60 ml/min/1.73 sqM) Glucose 270 H (74-99) mg/dL Calcium 9.4 (8.4-10.2) mg/dL Magnesium 1.5 L (1.6-2.3) mg/dL Total Bilirubin 2.7 H (0.2-1.3) mg/dL AST 25 (17-59) U/L ALT 26 (21-72) U/L Alkaline Phosphatase 79 (38-126) U/L Total Creatine Kinase 122 (55-170) U/L CK-MB (CK-2) 3.5 H* (0.0-2.4) ng/mL CK-MB (CK-2) Rel Index 2.9 Troponin I 0.030 (0.000-0.034) ng/mL NT-Pro-B Natriuret Pep pg/mL Total Protein 6.4 (6.3-8.2) g/dL Albumin 4.0 (3.5-5.0) g/dL Influenza Type A RNA (Not Detectd) Influenza Type B (PCR) (Not Detectd) 09/11/17 09/11/17 09/11/17 Range/Units 11:52 11:52 11:52 WBC (3.8-10.6) k/uL RBC (4.30-5.90) m/uL Hgb (13.0-17.5) gm/dL Hct (39.0-53.0) % MCV (80.0-100.0) fL MCH (25.0-35.0) pg MCHC (31.0-37.0) g/dL RDW (11.5-15.5) % Plt Count (150-450) k/uL Neutrophils % % Lymphocytes % % Monocytes % % Eosinophils % % Basophils % % Neutrophils # (1.3-7.7) k/uL Lymphocytes # (1.0-4.8) k/uL Monocytes # (0-1.0) k/uL Eosinophils # (0-0.7) k/uL Basophils # (0-0.2) k/uL Hypochromasia PT 12.5 H (9.0-12.0) sec INR 1.3 H (<1.2) APTT 22.7 (22.0-30.0) sec Sodium (137-145) mmol/L Potassium (3.5-5.1) mmol/L Chloride (98-107) mmol/L Carbon Dioxide (22-30) mmol/L Anion Gap mmol/L BUN (9-20) mg/dL Creatinine (0.66-1.25) mg/dL Est GFR (MDRD) Af Amer (>60 ml/min/1.73 sqM) Est GFR (MDRD) Non-Af (>60 ml/min/1.73 sqM) Glucose (74-99) mg/dL Calcium (8.4-10.2) mg/dL Magnesium (1.6-2.3) mg/dL Total Bilirubin (0.2-1.3) mg/dL AST (17-59) U/L ALT (21-72) U/L Alkaline Phosphatase (38-126) U/L Total Creatine Kinase (55-170) U/L CK-MB (CK-2) (0.0-2.4) ng/mL CK-MB (CK-2) Rel Index Troponin I (0.000-0.034) ng/mL NT-Pro-B Natriuret Pep 6670 pg/mL Total Protein (6.3-8.2) g/dL Albumin (3.5-5.0) g/dL Influenza Type A RNA Not Detected (Not Detectd) Influenza Type B (PCR) Not Detected (Not Detectd) - EKG Data -: EKG Interpreted by Me (Pacer rhythm of 60. Interval to 90 QRS 216 QT since QTC of 5:30/5:30) - Radiology Data Radiology results: report reviewed (I did review the imaging and report evidence of COPD there is evidence of right pulmonary mass), image reviewed Critical Care Time Critical Care Time: Yes Critical Care Time: 33 minutes of critical care time which includes monitoring initially EMS run and discussed with paramedics history physical lab and x-ray. Reevaluation patient responsive therapy review of old charting that was available discussed with the patient regarding the findings discussed with the main physician admission orders and documentation of the above. Disposition Clinical Impression: Acute exacerbation of chronic obstructive pulmonary disease (COPD), Adult respiratory distress syndrome, Congestive heart failure (CHF) Disposition: ADMITTED IP TO THIS HOSP Condition: Stable Referrals: Gisella Iraheta MD [Primary Care Provider] - 1-2 days
[2017-09-11 12:24] LABS: Basophils % (A) 1 %; Eosinophils # (A) 0.1 k/uL (0-0.7); Eosinophils % (A) 2 %; HCT 36.8 % (39.0-53.0); HGB 10.9 gm/dL (13.0-17.5); Hypochromasia Marked; Lymphocytes # (A) 0.9 k/uL (1.0-4.8); Lymphocytes % (A) 15 %; MCH 28.8 pg (25.0-35.0); MCHC 29.6 g/dL (31.0-37.0); MCV 97.3 fL (80.0-100.0); Mean Platelet Volume 7.9; Monocytes # (A) 0.4 k/uL (0-1.0); Monocytes % (A) 8 %; Neutrophils # (A) 4.3 k/uL (1.3-7.7); Neutrophils % (A) 74 %; Platelet Count 136 k/uL (150-450); RBC 3.78 m/uL (4.30-5.90); RDW 15.8 % (11.5-15.5); WBC 5.8 k/uL (3.8-10.6)
[2017-09-11 12:27] LABS: ALT 26 U/L (21-72); AST 25 U/L (17-59); Alkaline Phosphatase 79 U/L (38-126); Anion Gap 12 mmol/L; Blood Urea Nitrogen 28 mg/dL (9-20); Calcium 9.4 mg/dL (8.4-10.2); Carbon Dioxide 29 mmol/L (22-30); Chloride 100 mmol/L (98-107); Glucose 270 mg/dL (74-99); Magnesium 1.5 mg/dL (1.6-2.3); Potassium 3.9 mmol/L (3.5-5.1); Sodium 141 mmol/L (137-145); Total Bilirubin 2.7 mg/dL (0.2-1.3); Total Protein 6.4 g/dL (6.3-8.2)
[2017-09-11 12:38] LABS: INR 1.3 (<1.2); Partial Thromboplastin Time 22.7 sec (22.0-30.0); Prothrombin Time 12.5 sec (9.0-12.0)
[2017-09-11 12:45] LABS: Troponin I 0.03 ng/mL (0.000-0.034)
--- NOTE | 2017-09-11 12:51 | XR ---
EXAMINATION TYPE: XR chest 2V DATE OF EXAM: 09/11/2017 HISTORY: difficulty breathing. REFERENCE: Previous study dated 05/28/2017. FINDINGS: There has been a midline sternotomy. There is a multilead pacing device in place on the lef t. The heart is enlarged. The lungs are overinflated. There has been interval development of a 1.9 cm ri ght upper pole mass. Pleural spaces appear clear. IMPRESSION: 1. COPD. 2. CARDIOMEGALY. 3. 1.9 CM RIGHT UPPER LOBE PULMONARY MASS.
[2017-09-11 12:53] LABS: Creatine Kinase MB 3.5 ng/mL (0.0-2.4)
[2017-09-11] MEDS ORDERED: HYDROmorphone 2 MG/ML 1 ML SYRINGE IVP STA (16:01)
[2017-09-11] MEDS ORDERED: ALPRAZolam 0.25 MG TAB PO PRN (17:43)
[2017-09-11] MEDS ORDERED: HYDROmorphone 0.5 MG/0.5 ML SYRINGE IVP PRN (17:43)
[2017-09-11 18:05] LABS: Glucose,Whole Blood 322 mg/dL (75-99)
[2017-09-11] MEDS: HYDROcodone/APAP 5-325MG 1 EACH TAB PO PRN (18:19)
[2017-09-11] MEDS: methylPREDNISolone SOD SUCCI 125 MG/2 ML VIAL IV SCH ×2 (18:19→23:03)
[2017-09-11] MEDS: INSULIN ASPART 100 UNIT/ML 1 ML 10 ML VIAL SQ SCH ×2 (18:20→23:02)
[2017-09-11] MEDS: metFORMIN 500 MG TAB PO SCH (20:00)
[2017-09-11] MEDS ORDERED: IPRATROPIUM-ALBUTEROL 3 ML NEB INHALATION SCH (20:00)
[2017-09-11] MEDS: FUROSEMIDE 10 MG/ML 4 ML VIAL IV SCH (20:00)
[2017-09-11] MEDS: SPIRONOLACTONE 25 MG TAB PO SCH (20:01)
[2017-09-11] MEDS ORDERED: FUROSEMIDE 40 MG TAB PO SCH (21:00)
[2017-09-11 21:06] LABS: Glucose,Whole Blood 283 mg/dL (75-99)
[2017-09-11] MEDS: HEPARIN SODIUM,PORCINE 5,000 UNIT/ML 1 ML VIAL SQ SCH (23:03)
[2017-09-11] MEDS: TEMAZEPAM 15 MG CAP PO PRN (23:14)
[2017-09-12 06:19] LABS: Glucose,Whole Blood 164 mg/dL (75-99)
[2017-09-12] MEDS: methylPREDNISolone SOD SUCCI 125 MG/2 ML VIAL IV SCH ×4 (06:19→23:40)
[2017-09-12] MEDS: INSULIN ASPART 100 UNIT/ML 1 ML 10 ML VIAL SQ SCH ×4 (06:20→21:02)
[2017-09-12] MEDS: IPRATROPIUM-ALBUTEROL 3 ML NEB INHALATION SCH ×4 (07:12→19:40)
[2017-09-12] MEDS: ATORVASTATIN 20 MG TAB PO SCH (08:29)
[2017-09-12] MEDS: metFORMIN 500 MG TAB PO SCH ×2 (08:29→21:02)
[2017-09-12] MEDS: ASPIRIN 81 MG PO SCH (08:29)
[2017-09-12] MEDS: HEPARIN SODIUM,PORCINE 5,000 UNIT/ML 1 ML VIAL SQ SCH ×3 (08:29→23:40)
[2017-09-12] MEDS: FUROSEMIDE 10 MG/ML 4 ML VIAL IV SCH ×2 (08:29→20:24)
[2017-09-12] MEDS: METOPROLOL SUCCINATE (ER) 100 MG TAB.ER.24H PO SCH (08:30)
[2017-09-12] MEDS: SPIRONOLACTONE 25 MG TAB PO SCH ×2 (08:30→20:24)
[2017-09-12] MEDS: HYDROmorphone 2 MG TAB PO PRN ×2 (08:43→20:24)
--- NOTE | 2017-09-12 10:44 | P.CRDCN ---
History of Present Illness Consult date: 09/12/17 Requesting physician: Rishi An Consult reason: congestive heart failure Chief complaint: Shortness of breath History of present illness: This is a 62-year-old gentleman who follows with Dr. Moore in our office, he actually has an appointment with him today for an office visit and a device check. Patient has known history of systolic congestive heart failure, coronary artery disease with prior bypass surgery, ischemic cardiomyopathy with prior known ejection fraction of less than 20%, prior AICD, advanced COPD, atrial tachycardia, diabetes, pulmonary hypertension, and up until recently has been and every day smoker. He presents to the hospital with symptoms of severe shortness of breath, he states that on Tuesday evening he had 7 separate episodes of severe shortness of breath, he did use his inhalers and breathing treatment with minimal relief, came to the emergency room for further evaluation. EKG on arrival showed a paced rhythm with underlying normal sinus rhythm. Chest x-ray reveals COPD, cardiomegaly, 1.9 cm right upper lobe pulmonary mass. Chest x-ray performed in June 2017 did reveal a possible new 2 cm right upper lobe nodule. Chest x-ray in May revealed COPD, no mention of mass. Blood pressure 144/60 with a heart rate in the 60s, temperature 97.9, 95% on 3 L of oxygen. Hemoglobin 10.9, platelet count 136. Sodium 141, potassium 3.9, BUN 28, creatinine 1.0. Troponins 0.030, 0.033, 0.035. BNP level 6670. Influenza A and B-. Echocardiogram with Doppler study which was performed in January 2017 revealed an ejection fraction of less than 20% . At the time of my examination this morning, patient states he is still short of breath however significantly improved from admission here. Past Medical History Past Medical History: Coronary Artery Disease (CAD), Chest Pain / Angina, Heart Failure, COPD, Diabetes Mellitus, Hyperlipidemia, Myocardial Infarction ([place]), Osteoarthritis ([place]) Additional Past Medical History / Comment(s): Coronary artery disease with a previous bypass surgery, ischemic cardiomyopathy with ejection fraction of less than 20%, COPD, obstructive sleep apnea with an AHI of 24 currently on auto CPAP unit, obesity, hypertension, AICD placement for ischemic cardiomyopathy, Cardiomyopathy, osteoarthritis, diabetes mellitus, hyperlipidemia, hypertension. Last Myocardial Infarction Date:: UNSURE History of Any Multi-Drug Resistant Organisms: None Reported Past Surgical History: AICD, Coronary Bypass/CABG, Heart Catheterization, Orthopedic Surgery Additional Past Surgical History / Comment(s): Pacemaker and AICD- 10/2013, CABG 1 vessel many yrs ago per pt, BILATERAL SHOULDER SURGERY , steel alcides in leg from fracture, bilat shoulders Past Anesthesia/Blood Transfusion Reactions: No Reported Reaction Type of Cardiac Device: Permanent Pacemaker, AICD Device Placement Date:: Past Psychological History: No Psychological Hx Reported Additional Psychological History / Comment(s): Pt resides with his spouse. He has a walker at home but does not need to use it. He drives. He has a nebulizer. Smoking Status: Current some day smoker Past Alcohol Use History: Rare Additional Past Alcohol Use History / Comment(s): Pt states, "I quit smoking last week. A pack lasted me 7 days." Past Drug Use History: None Reported - Past Family History Mother History Unknown: Yes Father Family Medical History: Myocardial Infarction ([place]) Additional Family Medical History / Comment(s): Father of a [place] at the age of 56yrs. Brother(s) Family Medical History: Cancer Medications and Allergies Home Medications Medication Instructions Recorded Confirmed Type Atorvastatin [Lipitor] 20 mg PO DAILY 05/18/16 09/11/17 History Albuterol Nebulized [Ventolin 2.5 mg INHALATION RT-QID 02/13/17 09/11/17 History Nebulized] metFORMIN HCL [Glucophage] 500 mg PO BID 02/13/17 09/11/17 History Albuterol Inhaler [Ventolin Hfa 2 puff INHALATION RT-Q4H PRN 05/28/17 09/11/17 History Inhaler] Metoprolol Succinate [Toprol XL] 100 mg PO DAILY 05/28/17 09/11/17 History Aspirin [Adult Low Dose Aspirin EC] 81 mg PO DAILY 09/11/17 09/11/17 History Furosemide [Lasix] 40 mg PO BID 09/11/17 09/11/17 History Spironolactone [Aldactone] 25 mg PO BID 09/11/17 09/11/17 History Allergies Allergy/AdvReac Type Severity Reaction Status Date / Time Latex, Natural Rubber Allergy Rash/Hives Verified 09/11/17 12:01 levofloxacin [From Levaquin] Allergy Rash/Hives Verified 09/11/17 12:01 mold Allergy Rash/Hives Verified 09/11/17 12:01 prednisone Allergy Rash/Hives Verified 09/11/17 12:01 STEROIDS Allergy Rash/Hives Uncoded 02/13/17 20:20 Physical Exam Vitals: Vital Signs Temp Pulse Pulse Resp BP BP Pulse Ox 09/12/17 08:00 97.9 F 60 18 144/68 95 09/12/17 07:28 72 09/12/17 07:14 68 99 09/12/17 04:00 97.0 F L 67 18 136/71 99 09/12/17 00:00 97.0 F L 60 17 121/83 100 09/11/17 19:47 97.0 F L 58 L 18 142/70 99 09/11/17 19:44 76 09/11/17 19:33 76 09/11/17 17:30 97.9 F 61 20 136/81 99 09/11/17 17:06 61 16 141/76 98 09/11/17 15:48 60 18 139/76 99 09/11/17 14:21 61 18 145/80 98 09/11/17 13:06 60 20 114/55 98 09/11/17 12:12 60 09/11/17 12:03 60 09/11/17 11:42 97 F L 60 22 130/88 94 L Intake and Output 09/11/17 09/12/17 09/12/17 22:59 06:59 14:59 Intake Total 180 1200 118 Output Total 2000 Balance 180 -800 118 Intake: Oral 180 1200 118 Output: Urine 2000 Other: Voiding Method Urinal Urinal Weight 120 kg 117.4 kg PHYSICAL EXAMINATION: HEENT: Head is atraumatic, normocephalic. Pupils equal, round. Neck is supple. There is no elevated jugular venous pressure. HEART EXAMINATION: Heart S1 S2 1 systolic murmur is heard CHEST EXAMINATION: Lungs reveal expiratory wheezing throughout all lung rene. ABDOMEN: Soft, obese, nontender. Bowel sounds are heard. No organomegaly noted. EXTREMITIES: 1+ peripheral pulses with 1+ evidence of peripheral edema and no calf tenderness noted. NEUROLOGIC patient is awake, alert and oriented -3. . Results 09/11/17 11:52 09/11/17 11:52 Cardiac Enzymes 09/11/17 09/11/17 09/11/17 Range/Units 11:52 11:52 21:51 AST 25 (17-59) U/L CK-MB (CK-2) 3.5 H* (0.0-2.4) ng/mL Troponin I 0.030 0.033 (0.000-0.034) ng/mL 09/12/17 Range/Units 03:04 AST (17-59) U/L CK-MB (CK-2) (0.0-2.4) ng/mL Troponin I 0.035 H* (0.000-0.034) ng/mL Coagulation 09/11/17 Range/Units 11:52 PT 12.5 H (9.0-12.0) sec APTT 22.7 (22.0-30.0) sec CBC 09/11/17 Range/Units 11:52 WBC 5.8 (3.8-10.6) k/uL RBC 3.78 L (4.30-5.90) m/uL Hgb 10.9 L (13.0-17.5) gm/dL Hct 36.8 L (39.0-53.0) % Plt Count 136 L (150-450) k/uL Comprehensive Metabolic Panel 09/11/17 Range/Units 11:52 Sodium 141 (137-145) mmol/L Potassium 3.9 (3.5-5.1) mmol/L Chloride 100 (98-107) mmol/L Carbon Dioxide 29 (22-30) mmol/L BUN 28 H (9-20) mg/dL Creatinine 1.00 (0.66-1.25) mg/dL Glucose 270 H (74-99) mg/dL Calcium 9.4 (8.4-10.2) mg/dL AST 25 (17-59) U/L ALT 26 (21-72) U/L Alkaline Phosphatase 79 (38-126) U/L Total Protein 6.4 (6.3-8.2) g/dL Albumin 4.0 (3.5-5.0) g/dL Current Medications Generic Name Dose Route Start Last Admin Trade Name Freq PRN Reason Stop Dose Admin Hydrocodone Bitart/Acetaminophen 1 each 09/11/17 17:43 09/11/17 18:19 [place] 5-325 PO 1 each Q6HR PRN Administration MILD TO MODERATE Pain Albuterol/Ipratropium 3 ml 09/12/17 08:00 09/12/17 07:12 Duoneb 0.5 Mg-3 Mg/3 Ml Soln INHALATION 3 ml RT-QID BRO Administration Albuterol/Ipratropium 3 ml 09/11/17 20:57 Duoneb 0.5 Mg-3 Mg/3 Ml Soln INHALATION RT-Q2H PRN Shortness Of Breath Or Wheezing Alprazolam 0.25 mg 09/11/17 17:43 Xanax PO TID PRN Anxiety Aspirin 81 mg 09/12/17 09:00 09/12/17 08:29 Aspirin PO 81 mg DAILY BRO Administration Atorvastatin Calcium 20 mg 09/12/17 09:00 09/12/17 08:29 Lipitor PO 20 mg DAILY BRO Administration Furosemide 40 mg 09/11/17 21:00 09/12/17 08:29 Lasix IV 40 mg Q12HR BRO Administration Heparin Sodium (Porcine) 5,000 unit 09/12/17 00:00 09/12/17 08:29 Heparin SQ 5,000 unit Q8HR BRO Administration Hydromorphone HCl 2 mg 09/11/17 23:33 09/12/17 08:43 Dilaudid PO 2 mg Q6HR PRN Administration SEVERE PAIN Insulin Aspart 0 unit 09/11/17 18:10 09/12/17 06:20 Novolog SQ 3 unit ACHS BRO Administration Protocol Metformin HCl 500 mg 09/11/17 21:00 09/12/17 08:29 Glucophage PO 500 mg BID BRO Administration Methylprednisolone Sodium Succinate 60 mg 09/11/17 18:00 09/12/17 06:19 Solu-Medrol IV 60 mg Q6HR BRO Administration Metoprolol Succinate 100 mg 09/12/17 09:00 09/12/17 08:30 Toprol Xl PO 100 mg DAILY BRO Administration Spironolactone 25 mg 09/11/17 21:00 09/12/17 08:30 Aldactone PO 25 mg BID BRO Administration Temazepam 15 mg 09/11/17 17:40 09/11/17 23:14 Restoril PO 15 mg HS PRN Administration insomnia Intake and Output 09/11/17 09/12/17 09/12/17 22:59 06:59 14:59 Intake Total 180 1200 118 Output Total 1999 Balance 180 -800 118 Intake: Oral 180 1200 118 Output: Urine 1999 Other: Voiding Method Urinal Urinal Weight 120 kg 117.4 kg 09/11/17 11:52 09/11/17 11:52 EKG Interpretations (text) EKG shows a paced rhythm with underlying sinus rhythm first degree AV block Assessment and Plan Plan: Assessment and plan #1 COPD exacerbation, chest x-ray reveals a 1.9 cm right upper lobe pulmonary mass, initially noted on x-ray in June 2017. #2 systolic congestive heart failure acute on chronic #3 known history of coronary artery disease with prior bypass surgery #4 ischemic cardiomyopathy with prior documented ejection fraction of less than 20% #5 AICD #6 diabetes #7 hypertension #8 hyperlipidemia #9 severe COPD #10 nicotine dependence #11 mildly abnormal troponins, likely secondary to oxygen supply and demand mismatch #12 hypomagnesemia Plan We will repeat an echocardiogram with Doppler study, continue IV Lasix along with aspirin 81 mg daily, Lipitor 20 mg daily, metoprolol 100 mg daily, Aldactone 25 mg one tablet by mouth twice a day, and initiate low-dose NANNETTE inhibitor. Continue to monitor intake and output along with daily weights, daily lytes BUN and creatinine. DNP note has been reviewed, I agree with a documented findings and plan of care. Patient was seen and examined.
--- NOTE | 2017-09-12 11:03 | ECHOF ---
Referral Reason:CHF MEASUREMENTS -------- HEIGHT: 182.9 cm WEIGHT: 119.7 kg BP: RVIDd: 5.0 cm (< 3.3) IVSd: 1.5 cm (0.6 - 1.1) LVIDd: 6.0 cm (3.9 - 5.3) LVPWd: 1.0 cm (0.6 - 1.1) IVSs: 1.8 cm LVIDs: 4.9 cm LVPWs: 1.6 cm LA Diam: 4.8 cm (2.7 - 3.8) LAESV Index (A-L): 53.51 ml/m Ao Diam: 3.4 cm (2.0 - 3.7) AV Cusp: 2.0 cm (1.5 - 2.6) LA Diam: 5.6 cm (2.7 - 3.8) MV EXCURSION: 19.566 mm (> 18.000) MV EF SLOPE: 31 mm/s (70 - 150) EPSS: 2.3 cm RAP: 5.00 mmHg RVSP: 40.14 mmHg FINDINGS -------- Pacerwire seen in RV and RA. This was a technically adequate study. There is moderate concentric left ventricular hypertrophy. Overall left ventricular systolic functi on is severely impaired with, an EF < 20%. Basal anterior LV wall motion is akinetic. Basal late ral LV wall motion is hypokinetic. Basal posterior LV wall motion is hypokinetic. Basal inferio r LV wall motion is hypokinetic. Basal inferoseptal LV wall motion is hypokinetic. Basal rocky septal LV wall motion is akinetic. Mid anterior LV wall motion is akinetic. Mid lateral LV wall motion is akinetic. Mid posterior LV wall motion is hypokinetic. Mid inferior LV wall motion i s hypokinetic. Mid inferoseptal LV wall motion is hypokinetic. Mid anteroseptal LV wall motion is akinetic. Apical anterior LV wall motion is akinetic. Apical lateral LV wall motion is akine tic. Apical inferior LV wall motion is akinetic. Apical septum LV wall motion is akinetic. The right ventricle is severely enlarged. LA is severely dilated >40 ml/m2 The right atrial size is normal. There is mild aortic valve sclerosis. There is no evidence of aortic regurgitation. Mild mitral annular calcification present. [id number] mitral regurgitation is present. Mild tricuspid regurgitation present. There is mild pulmonary hypertension. The right ventricular systolic pressure, as measured by Doppler, is 40.14mmHg. There is no pulmonic regurgitation present. The aortic root size is normal. There is no pericardial effusion. CONCLUSIONS -------- 1. Pacerwire seen in RV and RA. 2. This was a technically adequate study. 3. There is moderate concentric left ventricular hypertrophy. 4. Overall left ventricular systolic function is severely impaired with, an EF < 20%. 5. Basal anterior LV wall motion is akinetic. 6. Basal lateral LV wall motion is hypokinetic. 7. Basal posterior LV wall motion is hypokinetic. 8. Basal inferior LV wall motion is hypokinetic. 9. Basal inferoseptal LV wall motion is hypokinetic. 10. Basal anteroseptal LV wall motion is akinetic. 11. Mid anterior LV wall motion is akinetic. 12. Mid lateral LV wall motion is akinetic. 13. Mid posterior LV wall motion is hypokinetic. 14. Mid inferior LV wall motion is hypokinetic. 15. Mid inferoseptal LV wall motion is hypokinetic. 16. Mid anteroseptal LV wall motion is akinetic. 17. Apical anterior LV wall motion is akinetic. 18. Apical lateral LV wall motion is akinetic. 19. Apical inferior LV wall motion is akinetic. 20. Apical septum LV wall motion is akinetic. 21. The right ventricle is severely enlarged. 22. LA is severely dilated >40 ml/m2 23. There is mild aortic valve sclerosis. 24. Mild mitral annular calcification present. 25. [id number] mitral regurgitation is present. 26. Mild tricuspid regurgitation present. 27. There is mild pulmonary hypertension. 28. The right ventricular systolic pressure, as measured by Doppler, is 40.14mmHg. 29. There is no pulmonic regurgitation present. 30. The aortic root size is normal. 31. There is no pericardial effusion. LONG TERM CARE PHARMACIST: Bhavana Mooney RDCS
[2017-09-12 11:08] LABS: Basophils % (A) 0 %; Eosinophils % (A) 0 %; HCT 36.2 % (39.0-53.0); HGB 10.9 gm/dL (13.0-17.5); Hypochromasia Marked; Lymphocytes # (A) 0.3 k/uL (1.0-4.8); Lymphocytes % (A) 5 %; MCH 29.9 pg (25.0-35.0); MCHC 30.3 g/dL (31.0-37.0); MCV 98.8 fL (80.0-100.0); Macrocytosis Slight; Mean Platelet Volume 8.5; Monocytes # (A) 0.3 k/uL (0-1.0); Monocytes % (A) 4 %; Neutrophils # (A) 6.5 k/uL (1.3-7.7); Neutrophils % (A) 91 %; Platelet Count 123 k/uL (150-450); RBC 3.66 m/uL (4.30-5.90); RDW 15.8 % (11.5-15.5); WBC 7.2 k/uL (3.8-10.6)
[2017-09-12 11:22] LABS: Blood Urea Nitrogen 28 mg/dL (9-20); Calcium 9.6 mg/dL (8.4-10.2); Carbon Dioxide 31 mmol/L (22-30); Chloride 97 mmol/L (98-107); Glucose 244 mg/dL (74-99); Potassium 4.4 mmol/L (3.5-5.1)
[2017-09-12 11:26] LABS: Glucose,Whole Blood 267 mg/dL (75-99)
[2017-09-12 11:35] LABS: Anion Gap 12 mmol/L; Sodium 140 mmol/L (137-145)
--- NOTE | 2017-09-12 14:25 | P.CNPUL ---
History of Present Illness Consult date: 09/12/17 Requesting physician: Rishi An Reason for consult: dyspnea, cough, abnormal CXR/CT Chief complaint: Shortness of breath, nonproductive cough, wheezing, peripheral edema History of present illness: Edgar is a 62-year-old white male patient that sees Dr. Merrtit for primary care services and Dr. Iraheta for his history of COPD, baseline FEV1 of 40% of predicted secondary to the emergency department on 09/11/2017 at 1140 with complaints of increasing shortness of breath, recent peripheral edema, nonproductive cough, and wheezing. Patient states he had 7 breathing attacks at home prior to coming in to the hospital. 9 any fever, denied any chills, denied chest pain. Cough is nonproductive. Chest x-ray from 09/11/2017 showed COPD, cardiomegaly, and 1.9 cm right upper lobe pulmonary mass. No chest pain, no chest discomfort, no hemoptysis reported. EKG showed a paced rhythm with a rate of 60 BPM. Lab work showed no evidence of leukocytosis, WBC is 5.8, hemoglobin is 10.9, INR is 1.3, electrolyte profile was normal, B1 is 28, creatinine is 1, proBNP was 6670, troponin was 0.033, CK-MB was 3.5, influenza screen was negative. Patient's past medical history is positive for coronary artery disease, heart failure, COPD, diabetes mellitus, hyperlipidemia, previous myocardial infarction and osteoarthritis. Patient has an AICD in place. Unfortunately he continues to smoke. Is currently on home oxygen. In addition patient also has obstructive sleep apnea, with an AHI of 24, currently on CPAP unit. Patient is afebrile, hemodynamically stable, remains on 2 L per nasal cannula with O2 sat 96%. He is receiving IV diuresis with Lasix 40 mg IV every 12 hours, DuoNeb nebulized treatments, steroids, and admitted for further management. Review of Systems All systems: negative Constitutional: Denies chills, Denies fever Eyes: denies blurred vision, denies pain Ears, nose, mouth and throat: Denies headache, Denies sore throat Cardiovascular: Denies chest pain, Denies shortness of breath Respiratory: Denies cough Gastrointestinal: Denies abdominal pain, Denies diarrhea, Denies nausea, Denies vomiting Musculoskeletal: Denies myalgias Integumentary: Denies pruritus, Denies rash Neurological: Denies numbness, Denies weakness Psychiatric: Denies anxiety, Denies depression Endocrine: Denies fatigue, Denies weight change Past Medical History Past Medical History: Coronary Artery Disease (CAD), Chest Pain / Angina, Heart Failure, COPD, Diabetes Mellitus, Hyperlipidemia, Myocardial Infarction (NV), Osteoarthritis (OA) Additional Past Medical History / Comment(s): Coronary artery disease with a previous bypass surgery, ischemic cardiomyopathy with ejection fraction of less than 20%, COPD, obstructive sleep apnea with an AHI of 24 currently on auto CPAP unit, obesity, hypertension, AICD placement for ischemic cardiomyopathy, Cardiomyopathy, osteoarthritis, diabetes mellitus, hyperlipidemia, hypertension. Last Myocardial Infarction Date:: UNSURE History of Any Multi-Drug Resistant Organisms: None Reported Past Surgical History: AICD, Coronary Bypass/CABG, Heart Catheterization, Orthopedic Surgery Additional Past Surgical History / Comment(s): Pacemaker and AICD- 10/2013, CABG 1 vessel many yrs ago per pt, BILATERAL SHOULDER SURGERY , steel alcides in leg from fracture, bilat shoulders Past Anesthesia/Blood Transfusion Reactions: No Reported Reaction Type of Cardiac Device: Permanent Pacemaker, AICD Device Placement Date:: Past Psychological History: No Psychological Hx Reported Additional Psychological History / Comment(s): Pt resides with his spouse. He has a walker at home but does not need to use it. He drives. He has a nebulizer. Smoking Status: Current some day smoker Past Alcohol Use History: Rare Additional Past Alcohol Use History / Comment(s): Pt states, "I quit smoking last week. A pack lasted me 7 days." Past Drug Use History: None Reported - Past Family History Mother History Unknown: Yes Father Family Medical History: Myocardial Infarction (NV) Additional Family Medical History / Comment(s): Father of a NV at the age of 56yrs. Brother(s) Family Medical History: Cancer Medications and Allergies Home Medications Medication Instructions Recorded Confirmed Type Atorvastatin [Lipitor] 20 mg PO DAILY 05/18/16 09/11/17 History Albuterol Nebulized [Ventolin 2.5 mg INHALATION RT-QID 02/13/17 09/11/17 History Nebulized] metFORMIN HCL [Glucophage] 500 mg PO BID 02/13/17 09/11/17 History Albuterol Inhaler [Ventolin Hfa 2 puff INHALATION RT-Q4H PRN 05/28/17 09/11/17 History Inhaler] Metoprolol Succinate [Toprol XL] 100 mg PO DAILY 05/28/17 09/11/17 History Aspirin [Adult Low Dose Aspirin EC] 81 mg PO DAILY 09/11/17 09/11/17 History Furosemide [Lasix] 40 mg PO BID 09/11/17 09/11/17 History Spironolactone [Aldactone] 25 mg PO BID 09/11/17 09/11/17 History Allergies Allergy/AdvReac Type Severity Reaction Status Date / Time Latex, Natural Rubber Allergy Rash/Hives Verified 09/11/17 12:01 levofloxacin [From Levaquin] Allergy Rash/Hives Verified 09/11/17 12:01 mold Allergy Rash/Hives Verified 09/11/17 12:01 prednisone Allergy Rash/Hives Verified 09/11/17 12:01 STEROIDS Allergy Rash/Hives Uncoded 02/13/17 20:20 Physical Exam Vitals: Vital Signs Temp Pulse Pulse Resp BP BP Pulse Ox 09/12/17 12:00 61 18 130/73 96 09/12/17 11:14 76 09/12/17 11:01 72 09/12/17 08:00 97.9 F 60 18 144/68 95 09/12/17 07:28 72 09/12/17 07:14 68 99 09/12/17 04:00 97.0 F L 67 18 136/71 99 09/12/17 00:00 97.0 F L 60 17 121/83 100 09/11/17 19:47 97.0 F L 58 L 18 142/70 99 09/11/17 19:44 76 09/11/17 19:33 76 09/11/17 17:30 97.9 F 61 20 136/81 99 09/11/17 17:06 61 16 141/76 98 09/11/17 15:48 60 18 139/76 99 09/11/17 14:21 61 18 145/80 98 Intake and Output 09/11/17 09/12/17 09/12/17 22:59 06:59 14:59 Intake Total 180 1200 358 Output Total 1999 650 Balance 180 -800 -292 Intake: Oral 180 1200 358 Output: Urine 1999 650 Other: Voiding Method Urinal Urinal Weight 120 kg 117.4 kg GENERAL EXAM: Alert, pleasant 62-year-old white male, comfortable in no apparent distress. HEAD: Normocephalic/atraumatic. EYES: Normal reaction of pupils, equal size. Conjunctiva pink, sclera white. NOSE: Clear with pink turbinates. THROAT: No erythema or exudates. NECK: No masses, no JVD, no thyroid enlargement, no adenopathy. CHEST: No chest wall deformity. Symmetrical expansion. LUNGS: Lung sounds are positive for fine rales scattered bilaterally, and a few wheezes. CVS: Regular rate and rhythm, normal S1 and S2, no gallops, no murmurs, no rubs ABDOMEN: Soft, nontender. No hepatosplenomegaly, normal bowel sounds, no guarding or rigidity. EXTREMITIES: No clubbing, no cyanosis, 2+ pulses and upper and lower extremities. There is 1+ edema present in bilateral lower extremities. MUSCULOSKELETAL: Muscle strength and tone normal. SPINE: No scoliosis or deformity SKIN: No rashes CENTRAL NERVOUS SYSTEM: Alert and oriented -3. No focal deficits, tone is normal in all 4 extremities. PSYCHIATRIC: Alert and oriented -3. Appropriate affect. Intact judgment and insight. Results - Laboratory Findings CBC and BMP: 09/12/17 10:36 09/12/17 10:36 PT/INR, D-dimer PT 12.5 sec (9.0-12.0) H 09/11/17 11:52 INR 1.3 (<1.2) H 09/11/17 11:52 Abnormal lab findings: Abnormal Labs 09/11/17 09/11/17 09/11/17 11:52 11:52 11:52 RBC 3.78 L Hgb 10.9 L Hct 36.8 L MCHC 29.6 L RDW 15.8 H Plt Count 136 L Lymphocytes # 0.9 L PT INR Chloride Carbon Dioxide BUN 28 H Glucose 270 H POC Glucose (mg/dL) Magnesium 1.5 L Total Bilirubin 2.7 H CK-MB (CK-2) 3.5 H* Troponin I 09/11/17 09/11/17 09/11/17 11:52 17:48 20:43 RBC Hgb Hct MCHC RDW Plt Count Lymphocytes # PT 12.5 H INR 1.3 H Chloride Carbon Dioxide BUN Glucose POC Glucose (mg/dL) 322 H 283 H Magnesium Total Bilirubin CK-MB (CK-2) Troponin I 09/12/17 09/12/17 09/12/17 03:04 06:18 10:36 RBC 3.66 L Hgb 10.9 L Hct 36.2 L MCHC 30.3 L RDW 15.8 H Plt Count 123 L Lymphocytes # 0.3 L PT INR Chloride Carbon Dioxide BUN Glucose POC Glucose (mg/dL) 164 H Magnesium Total Bilirubin CK-MB (CK-2) Troponin I 0.035 H* 09/12/17 09/12/17 10:36 11:24 RBC Hgb Hct MCHC RDW Plt Count Lymphocytes # PT INR Chloride 97 L Carbon Dioxide 31 H BUN 28 H Glucose 244 H POC Glucose (mg/dL) 267 H Magnesium Total Bilirubin CK-MB (CK-2) Troponin I - Diagnostic Findings Chest x-ray: report reviewed Additional studies: 2D echocardiogram, and twelve-lead EKG reviewed Assessment and Plan Plan: Assessment: #1. Acute on chronic systolic congestive heart failure, proBNP was 6670 on admission. He presented with increased shortness of breath, peripheral edema, wheezing, that was not responding to his home inhalers and nebulizer treatments #2. Advanced oxygen dependent COPD, with FEV1 40% of predicted #3. Ischemic cardiomyopathy, status post AICD placement, with a EF of less than 20% #4. Obstructive sleep apnea, does not use CPAP machine at home, unable to tolerate, has tried multiple different masks. #5. Nicotine dependence, ongoing #6. Urinary artery disease, with previous CABG in the past #7. Hypertension #8. Mild troponin leak, likely secondary to oxygen supply and demand mismatch #9. 1.9 cm right upper lobe pulmonary mass, computed tomography scan of the lungs on September 2016 showed no evidence of any lung mass. This is being followed on an outpatient basis, patient will be undergoing a repeat CT chest on an outpatient basis. Plan: Continue IV diuresis per cardiology, continue DuoNeb nebulized treatments, IV Solu-Medrol, we will add Symbicort. Daily weights, accurate intake and output. Smoking cessation was again encouraged. The right upper lobe pulmonary mass is being followed on an outpatient basis. I performed a history & physical examination of the patient and discussed their management with my nurse practitioner, Agnes Mckeon. I reviewed the nurse practitioner's note and agree with the documented findings and plan of care. Lung sounds are positive for fine rales bilaterally, with scattered wheezes. The findings and the impression was discussed with the patient. I attest to the documentation by the nurse practitioner. Time with Patient: Greater than 30
[2017-09-12 14:40] VITALS: BMI 35.1
[2017-09-12 15:54] LABS: Hemoglobin A1C 6.4 % (4.0-6.0)
[2017-09-12 16:57] LABS: Glucose,Whole Blood 169 mg/dL (75-99)
--- NOTE | 2017-09-12 20:20 | CT ---
EXAMINATION TYPE: CT chest wo con DATE OF EXAM: 09/12/2017 COMPARISON: 09/20/2016 HISTORY: Right upper lobe mass. CT DLP: 671 mGycm. Automated Exposure Control for Dose Reduction was Utilized. TECHNIQUE: CT scan of the thorax is performed without IV contrast. FINDINGS: There is bullous emphysema and more noticeable in the right upper lobe. The lungs are clear of consol idation. There is no evidence of a pulmonary mass. There is some mild infiltrate and atelectasis at t he right posterior lung base. There is small right pleural effusion. Heart is enlarged. There is athe rosclerotic vascular calcification. There are no hilar masses. There are small mediastinal lymph node s that measure up to 1 cm. There is a large main pulmonary artery consistent with pulmonary hypertens ion. There is no pericardial effusion. There is no evidence of aortic aneurysm. There is dense calcif ication in the costal cartilage at the anterior right first rib that appears to account for increased density on the chest x-ray yesterday over the right upper lobe. I see no bony destructive process. T here are spondylotic changes in the thoracic spine. IMPRESSION: No evidence of right upper lobe mass. Dense calcification in the cartilage accounts for t he chest x-ray finding yesterday. There is new small right pleural effusion and posterior right base minimal infiltrate and atelectasis compared to old exam. Pulmonary emphysema. Moderate cardiomegaly. Atherosclerotic vascular disease.
[2017-09-12] MEDS: TEMAZEPAM 15 MG CAP PO PRN (20:25)
[2017-09-12 20:39] LABS: Glucose,Whole Blood 187 mg/dL (75-99)
[2017-09-12] MEDS: cefTRIAXone IN SWFI 1,000 MG/10 ML SYRINGE IVP SCH (21:01)
--- NOTE | 2017-09-12 22:39 | HP ---
HISTORY AND PHYSICAL DATE OF SERVICE: 09/11/2017 CHIEF COMPLAINT: Shortness of breath. HISTORY OF PRESENT ILLNESS: This 62-year-old gentleman with a past medical history of CAD, CHF, COPD, diabetes, hyperlipidemia, history of myocardial infarction, history of DJD, being followed by Dr. Iraheta in the outpatient setting, is complaining of shortness of breath. The patient has cough and several shortness of breath attacks, about up to 7 yesterday morning. The patient came to [facility] and was admitted for further evaluation and treatment. Right upper lobe density was suspected. There is no history of fever, rigors. No headache, loss of consciousness or seizures. CHF was also suspected on admission. PAST MEDICAL HISTORY: CAD, CHF, COPD, diabetes, hyperlipidemia, myocardial infarction, CAD, CABG. MEDICATIONS: Home medications are: 1. Aldactone 25 mg p.o. b.i.d. 2. Ecotrin 81 mg. 3. Glucophage 500 mg p.o. b.i.d. 4. Lasix 40 mg p.o. b.i.d. 5. Ventolin 2.5 q.i.d. 6. Ventolin HFA inhaler 2 puffs every 4 hours p.r.n. 7. Toprol-XL 100 mg p.o. daily. 8. Lipitor 20 mg p.o. daily. ALLERGIES: LATEX, LEVAQUIN, MOLD, PREDNISONE, STEROIDS. FAMILY HISTORY: History of cancer in the family. SOCIAL HISTORY: History of smoking on a daily basis. No history of alcohol intake. REVIEW OF SYSTEMS: ENT: No diminished vision. CARDIOVASCULAR: No angina or palpitations. RESPIRATORY: No cough or hemoptysis. : No dysuria. NERVOUS: No numbness or weakness. ALLERGY/IMMUNOLOGY: Negative. ENDOCRINE: Negative. CONSTITUTIONAL: Negative. DERMATOLOGIC: Negative. PSYCHIATRY: As mentioned. PHYSICAL EXAMINATION: The patient is alert, oriented x3. The pulse is 61, blood pressure 136/81, respiration 20, temp 97.2, pulse ox 99% on 3 L HEENT: Conjunctivae normal. Oral mucosa moist. NECK: No jugular venous distention or carotid bruits. CARDIOVASCULAR: S1 and S2 muffled. LUNGS: Breath sounds diminished at the bases. Bilateral scattered rhonchi and crackles. Expiratory wheezing also present. ABDOMEN: Soft, nontender. No mass palpable. LEGS: No edema, no swelling. NERVOUS SYSTEM: Higher functions as mentioned earlier. Moves all four limbs. LYMPHATICS: No lymph nodes palpable in the neck, axillae or groin. SKIN: No ulcer, rash or bleeding. LABS: WBC 7.2, hemoglobin 10.9, sodium 140, potassium 4.4, troponin 0.35. ASSESSMENT: 1. Shortness of breath, possibly multifactorial congestive heart failure acute exacerbation with acute on chronic systolic dysfunction with ejection fraction less than 20% with possibly cardiomyopathy. 2. Chronic obstructive pulmonary disease acute exacerbation with acute purulent tracheobronchitis. 3. History of coronary artery disease. 4. History of chronic obstructive pulmonary disease. 5. Diabetes mellitus type 2. 6. Hyperlipidemia. 7. History of myocardial infarction. 8. History of coronary artery disease with coronary artery bypass grafting. 9. History of obstructive sleep apnea. 10.History of automatic implantable cardioverter defibrillator. RECOMMENDATIONS AND DISCUSSION: In this 62-year-old gentleman who presented with multiple complex medical issues, we will monitor the patient closely, continue the current management and symptomatic treatment. Recommend bronchodilators. Continue with diuretics. I would also recommend IV steroids. Monitor blood sugars closely. I would also recommend empiric antibiotics as well. The prognosis is guarded because of the multiple complex medical issues. Further recommendations to follow. See orders for details. Will obtain cardiology and pulmonology consultations. A 2-D echo has been ordered. MMODL / IJN: [id number] /
--- NOTE | 2017-09-12 22:48 | PN ---
PROGRESS NOTE DATE OF SERVICE: 09/12/2017. HISTORY: This 62-year-old gentleman was admitted with shortness of breath, possibly multifactorial. The chest x-ray showed features of CHF. Patient also had right upper lobe mass lesion on chest x-ray. The patient also had COPD acute exacerbation as well. Patient is on bronchodilators, steroids as well as diuretics. Cardiology and Pulmonology are following the patient closely. PAST MEDICAL HISTORY: Reviewed. REVIEW OF SYSTEMS: Cardiovascular: As mentioned. GI: As mentioned. Respiratory: As mentioned. : As mentioned. Nervous System: No numbness, weakness. CURRENT MEDICATIONS: 1. [place] 5 mg every 4 hours for pain. 2. DuoNeb q.i.d. and p.r.n. 3. Xanax 0.25 t.i.d. 4. Aspirin 81 mg. 5. Lipitor 20 mg daily. 6. Rocephin 1 g daily. 7. Lasix 40 mg IV b.i.d. 8. Heparin. 9. Dilaudid 2 mg p.o. every 6 hours p.r.n. 10.Zestril 2.5 mg daily. 11.Glucophage 500 mg b.i.d. 12.Solu-Medrol 60 IV every 4 hours. 13.Toprol-XL 100 mg daily. 14.Aldactone 25 mg daily. 15.Restoril 50 mg at bedtime p.r.n. PHYSICAL EXAM: Patient is alert, oriented x3. Pulse 61, blood pressure 130/81, respiration 20, temp 97.9, pulse ox 98% on 3 L. HEENT conjunctivae normal. Oral mucosa moist. NECK: No jugular venous distention. CARDIOVASCULAR: S1 and S2 muffled. LUNGS: Breath sounds diminished at the bases. A few scattered rhonchi and expiratory wheezing and crackles. ABDOMEN: Soft, nontender. No mass palpable. LEGS: No edema, no cyanosis. NERVOUS SYSTEMS: Higher functions as mentioned. Moves all 4 limbs. No focal motor or sensory deficits. LYMPHATICS: No lymph nodes palpable in the neck, axillae, groin. LABS: WBC 7.0, hemoglobin 10.9, sodium 140, potassium 4.4, and glucose 244. ASSESSMENT: 1. Shortness of breath possibly multifactorial, congestive heart failure acute exacerbation with acute on chronic systolic dysfunction, ejection fraction less than 20% as well as chronic obstructive pulmonary disease exacerbation with acute purulent tracheobronchitis. 2. Ischemic cardiomyopathy. 3. History of coronary artery disease with coronary artery bypass grafting. 4. Right upper lobe mass lesion to be ruled out. 5. Diabetes type 2. 6. Troponin 0.035, indeterminate. 7. History of coronary artery disease. 8. History of congestive heart failure. 9. Diabetes type 2. 10.Hyperlipidemia. 11.History of degenerative joint disease. 12.History of myocardial infarction. 13.History of sleep apnea on CPAP. 14.History of pacemaker and automatic implantable cardioverter defibrillator. 15.History of continued ongoing nicotine dependence. RECOMMENDATIONS AND DISCUSSION: This 62-year-old gentleman who presented with multiple complex medical issues, we will monitor the patient closely. Continue the current management and symptomatic treatment. Continue empiric antibiotics, bronchodilators and diuretics. Monitor fluid and electrolytes closely. I would also recommend a CT scan of the chest to rule out possible of mass lesion because of abnormal chest x-ray. Cardiology and pulmonology input appreciated. Prognosis guarded because of multiple complex medical issues. Discussed with the patient. Further recommendations to follow. MMODL / IJN: [id number] /
[2017-09-13] MEDS: methylPREDNISolone SOD SUCCI 125 MG/2 ML VIAL IV SCH ×4 (05:21→23:40)
[2017-09-13] MEDS: IPRATROPIUM-ALBUTEROL 3 ML NEB INHALATION PRN (05:32)
[2017-09-13 06:12] LABS: Glucose,Whole Blood 176 mg/dL (75-99)
[2017-09-13] MEDS: INSULIN ASPART 100 UNIT/ML 1 ML 10 ML VIAL SQ SCH ×4 (06:30→20:50)
[2017-09-13 07:01] LABS: Basophils % (A) 0 %; Eosinophils % (A) 0 %; HCT 35.8 % (39.0-53.0); HGB 10.4 gm/dL (13.0-17.5); Hypochromasia Marked; Lymphocytes # (A) 0.4 k/uL (1.0-4.8); Lymphocytes % (A) 6 %; MCH 28.7 pg (25.0-35.0); MCHC 29.2 g/dL (31.0-37.0); MCV 98.4 fL (80.0-100.0); Macrocytosis Slight; Mean Platelet Volume 8.5; Monocytes # (A) 0.3 k/uL (0-1.0); Monocytes % (A) 4 %; Neutrophils # (A) 7.3 k/uL (1.3-7.7); Neutrophils % (A) 90 %; Platelet Count 128 k/uL (150-450); RBC 3.63 m/uL (4.30-5.90); RDW 15.8 % (11.5-15.5); WBC 8.1 k/uL (3.8-10.6)
[2017-09-13 07:37] LABS: Anion Gap 9 mmol/L; Blood Urea Nitrogen 36 mg/dL (9-20); Calcium 9.2 mg/dL (8.4-10.2); Carbon Dioxide 33 mmol/L (22-30); Chloride 97 mmol/L (98-107); Glucose 163 mg/dL (74-99); Potassium 4.5 mmol/L (3.5-5.1); Sodium 139 mmol/L (137-145)
[2017-09-13] MEDS: IPRATROPIUM-ALBUTEROL 3 ML NEB INHALATION SCH ×4 (08:16→19:34)
[2017-09-13] MEDS: HEPARIN SODIUM,PORCINE 5,000 UNIT/ML 1 ML VIAL SQ SCH ×3 (09:08→23:40)
[2017-09-13] MEDS: ATORVASTATIN 20 MG TAB PO SCH (09:09)
[2017-09-13] MEDS: ASPIRIN 81 MG PO SCH (09:09)
[2017-09-13] MEDS: FUROSEMIDE 10 MG/ML 4 ML VIAL IV SCH ×2 (09:09→20:42)
[2017-09-13] MEDS: metFORMIN 500 MG TAB PO SCH ×2 (09:09→20:42)
[2017-09-13] MEDS: METOPROLOL SUCCINATE (ER) 100 MG TAB.ER.24H PO SCH (09:10)
[2017-09-13] MEDS: SPIRONOLACTONE 25 MG TAB PO SCH ×2 (09:10→20:41)
[2017-09-13] MEDS: cefTRIAXone IN SWFI 1,000 MG/10 ML SYRINGE IVP SCH (09:20)
[2017-09-13] MEDS: HYDROcodone/APAP 5-325MG 1 EACH TAB PO PRN (09:26)
--- NOTE | 2017-09-13 10:35 | P.PN ---
Subjective Progress Note Date: 09/13/17 Principal diagnosis: Acute exacerbation of systolic congestive heart failure This is a very pleasant 62-year-old gentleman who follows with Dr. Merritt is his primary care physician. He has a history of coronary artery disease with previous coronary artery bypass grafting, ischemic cardiomyopathy with ejection fraction less than 20% status post AICD placement, diabetes mellitus, hypertension, hyperlipidemia, morbid obesity, daily alcohol use including 6-8 beers per day. He also follows with Dr. Iraheta in our office for history of Gold stage III chronic obstructive pulmonary disease with FEV1 value of 40% of predicted. Unfortunately he continues to smoke. He also has a history of obstructive sleep apnea with an HI of 24 and utilizes CPAP in an auto mode with a minimum pressure of 5 and a maximum pressure of 17, he utilizes an AirFit P 10 nasal pillow. He had presented here on 09/11/2017 with complaints of increasing shortness of breath cough and congestion. His cough has been nonproductive. He utilized multiple breathing treatments without much improvement. His chest x-ray showed evidence of chronic obstructive pulmonary disease, cardiomegaly. CT scan of the chest revealed the same with no evidence of pulmonary mass. There is noted dense calcification in the cartilage in the right upper lobe. He is seen again today in follow-up on the selective care unit. He is awake and alert in no acute distress. He is breathing slightly better today as compared to yesterday. He is currently maintaining O2 saturations in the mid to upper 90s on room air. He's been afebrile. No tachycardia. No tachypnea. Blood pressure stable. No leukocytosis. Hemoglobin 10.4. Platelet count 128,000. Creatinine 1.22. Troponin 0.033, 0.035. ProBNP 6670. Echocardiogram reveals evidence of severe left ventricular systolic dysfunction with estimated ejection fraction less than 20% . There is global hypokinesia. He remains on Lasix 40 mg IV push every 12 hours. Currently in a negative balance. Objective - Vital Signs Vital signs: Vital Signs Temp 98 F 09/13/17 09:07 Pulse 60 09/13/17 09:07 Resp 20 09/13/17 09:07 BP 119/62 09/13/17 09:07 Pulse Ox 97 09/13/17 09:07 Intake & Output 09/12/17 09/13/17 09/13/17 18:59 06:59 18:59 Intake Total 598 600 180 Output Total 1250 800 Balance -652 -200 180 Weight 117.4 kg 116.8 kg Intake: Oral 598 600 180 Output: Urine 1250 800 Other: Voiding Method Urinal - Exam GENERAL EXAM: Morbidly obese. Alert, active, comfortable in no apparent distress. HEAD: Normocephalic. EYES: Normal reaction of pupils, equal size. NOSE: Clear with pink turbinates. THROAT: There is crowding of the posterior pharynx No erythema or exudates. NECK: Short. No masses, no JVD. CHEST: No chest wall deformity. LUNGS: Equal air entry with crackles in the posterior bases. Diminished. CVS: S1 and S2 normal with an audible murmur, regular rhythm. ABDOMEN: Obese. Normal bowel sounds, no guarding or rigidity. SPINE: No scoliosis or deformity SKIN: No rashes CENTRAL NERVOUS SYSTEM: No focal deficits, tone is normal in all 4 extremities. EXTREMITIES: There is 1-2+ peripheral edema. No clubbing, no cyanosis. Peripheral pulses are intact. - Labs CBC & Chem 7: 09/13/17 06:17 09/13/17 06:17 Labs: Abnormal Lab Results - Last 24 Hours (Table) 09/12/17 09/12/17 09/12/17 Range/Units 03:04 10:36 10:36 RBC 3.66 L (4.30-5.90) m/uL Hgb 10.9 L (13.0-17.5) gm/dL Hct 36.2 L (39.0-53.0) % MCHC 30.3 L (31.0-37.0) g/dL RDW 15.8 H (11.5-15.5) % Plt Count 123 L (150-450) k/uL Lymphocytes # 0.3 L (1.0-4.8) k/uL Chloride 97 L (98-107) mmol/L Carbon Dioxide 31 H (22-30) mmol/L BUN 28 H (9-20) mg/dL Glucose 244 H (74-99) mg/dL POC Glucose (mg/dL) (75-99) mg/dL Hemoglobin A1c 6.4 H (4.0-6.0) % 09/12/17 09/12/17 09/12/17 Range/Units 11:24 16:55 20:38 RBC (4.30-5.90) m/uL Hgb (13.0-17.5) gm/dL Hct (39.0-53.0) % MCHC (31.0-37.0) g/dL RDW (11.5-15.5) % Plt Count (150-450) k/uL Lymphocytes # (1.0-4.8) k/uL Chloride (98-107) mmol/L Carbon Dioxide (22-30) mmol/L BUN (9-20) mg/dL Glucose (74-99) mg/dL POC Glucose (mg/dL) 267 H 169 H 187 H (75-99) mg/dL Hemoglobin A1c (4.0-6.0) % 09/13/17 09/13/17 09/13/17 Range/Units 06:10 06:17 06:17 RBC 3.63 L (4.30-5.90) m/uL Hgb 10.4 L (13.0-17.5) gm/dL Hct 35.8 L (39.0-53.0) % MCHC 29.2 L (31.0-37.0) g/dL RDW 15.8 H (11.5-15.5) % Plt Count 128 L (150-450) k/uL Lymphocytes # 0.4 L (1.0-4.8) k/uL Chloride 97 L (98-107) mmol/L Carbon Dioxide 33 H (22-30) mmol/L BUN 36 H (9-20) mg/dL Glucose 163 H (74-99) mg/dL POC Glucose (mg/dL) 176 H (75-99) mg/dL Hemoglobin A1c (4.0-6.0) % Assessment and Plan Assessment: Impression: #1 Acute exacerbation of chronic systolic congestive heart failure with severe left ventricular systolic dysfunction with an estimated ejection fraction less than 20% and global hypokinesia. #2 Acute exacerbation of Gold stage III chronic obstructive pulmonary disease. #3 Chronic and ongoing tobacco dependence. #4 Acute on chronic hypoxic respiratory failure secondary to above. #5 Morbid obesity. #6 Obstructive sleep apnea, currently on CPAP auto settings with a minimum of 5 and a maximum of 17. He wears a medium-sized aAirFit P 10 nasal pillow. #7 Coronary artery disease with previous coronary artery bypass grafting. #8 Ischemic cardiomyopathy, status post AICD placement. #9 Hypertension. #10 Hyperlipidemia. #11 Diabetes mellitus. #12 Osteoarthritis. #13 Daily alcohol use. #14 Poor overall functional performance based on the above-mentioned multiple comorbidities. Plan: The patient was seen and evaluated by Dr. Walker. His computed tomography scan was reviewed. There is no evidence of a right upper lobe masses seen on chest x -ray. This is a dense consolidation of cartilage. No acute pulmonary process. We'll continue his treatment for the COPD exacerbation. Continue DuoNeb inhalations and IV Solu-Medrol. He is on empiric antibiotics in the form of ceftriaxone. Continue with diuretics with accurate I's and O's. Cardiology is on the case as well. We'll increase his activity as tolerated. We'll continue to follow and make further recommendations based on his clinical status. I, the cosigning physician, performed a history & physical examination of the patient. Lungs sounds have crackles in the bilateral posterior bases. End expiratory wheeze. Diminished.. Maintaining good O2 saturations in the 90s on room air. I discussed the assessment and plan of care with my nurse practitioner, Narcisa Graham. I attest to the above note as dictated by her.
[2017-09-13 11:29] LABS: Glucose,Whole Blood 204 mg/dL (75-99)
[2017-09-13] MEDS: LISINOPRIL 2.5 MG TAB PO SCH (11:58)
--- NOTE | 2017-09-13 13:47 | XR ---
EXAMINATION TYPE: XR chest 2V DATE OF EXAM: 09/11/2017 COMPARISON: September 11, 2017 HISTORY: Shortness of breath TECHNIQUE: Frontal and lateral views of the chest are obtained. FINDINGS: Scattered senescent parenchymal changes noted. Hyperinflation compatible with COPD. No evidence for infiltrate. No evidence for atelectasis. Heart size is stable. Mediastinal structures are stable and grossly unremarkable. No evidence for hilar prominence. Degenerative changes dorsal spine. Nodular right first rib end noted. IMPRESSION: 1. No evidence for acute pulmonary disease.
--- NOTE | 2017-09-13 14:11 | P.PN ---
Subjective Progress Note Date: 09/13/17 This is a 62-year-old gentleman who follows with Dr. Moore in our office, he actually has an appointment with him today for an office visit and a device check. Patient has known history of systolic congestive heart failure, coronary artery disease with prior bypass surgery, ischemic cardiomyopathy with prior known ejection fraction of less than 20%, prior AICD, advanced COPD, atrial tachycardia, diabetes, pulmonary hypertension, and up until recently has been and every day smoker. He presents to the hospital with symptoms of severe shortness of breath, he states that on Tuesday evening he had 7 separate episodes of severe shortness of breath, he did use his inhalers and breathing treatment with minimal relief, came to the emergency room for further evaluation. EKG on arrival showed a paced rhythm with underlying normal sinus rhythm. Chest x-ray reveals COPD, cardiomegaly, 1.9 cm right upper lobe pulmonary mass. Chest x-ray performed in June 2017 did reveal a possible new 2 cm right upper lobe nodule. Chest x-ray in May revealed COPD, no mention of mass. Blood pressure 144/60 with a heart rate in the 60s, temperature 97.9, 95% on 3 L of oxygen. Hemoglobin 10.9, platelet count 136. Sodium 141, potassium 3.9, BUN 28, creatinine 1.0. Troponins 0.030, 0.033, 0.035. BNP level 6670. Influenza A and B-. Echocardiogram with Doppler study which was performed in January 2017 revealed an ejection fraction of less than 20% . At the time of my examination this morning, patient states he is still short of breath however significantly improved from admission here. Patient was seen and examined this morning, his weight is down 1 kg today. Continues to be on IV Lasix. Creatinine today 1.2, hemoglobin 10.4. Repeat chest x-ray does not reveal any acute pulmonary disease. CTA of the chest was ordered because of the mass noted on the chest x-ray. Blood pressure and heart rate stable. Objective - Vital Signs Vital signs: Vital Signs Temp 97.7 F 09/13/17 11:40 Pulse 60 09/13/17 11:40 Resp 16 09/13/17 11:40 BP 129/72 09/13/17 11:40 Pulse Ox 97 09/13/17 11:40 Intake & Output 09/12/17 09/13/17 09/13/17 18:59 06:59 18:59 Intake Total 598 600 180 Output Total 1250 800 750 Balance -652 200 -570 Weight 117.4 kg 116.8 kg Intake: Oral 598 600 180 Output: Urine 1250 800 750 Other: Voiding Method Urinal Urinal - Exam PHYSICAL EXAMINATION: HEENT: Head is atraumatic, normocephalic. Pupils equal, round. Neck is supple. There is no elevated jugular venous pressure. HEART EXAMINATION: Heart S1 S2 1 systolic murmur is heard CHEST EXAMINATION: Lungs reveal improvement in air entry throughout all lung rene. Mild diminished air entry to the bases ABDOMEN: Soft, obese, nontender. Bowel sounds are heard. No organomegaly noted. EXTREMITIES: 1+ peripheral pulses with 1+ evidence of peripheral edema and no calf tenderness noted. NEUROLOGIC patient is awake, alert and oriented -3. - Labs CBC & Chem 7: 09/13/17 06:17 09/13/17 06:17 Labs: Abnormal Lab Results - Last 24 Hours (Table) 09/12/17 09/12/17 09/12/17 Range/Units 03:04 16:55 20:38 RBC (4.30-5.90) m/uL Hgb (13.0-17.5) gm/dL Hct (39.0-53.0) % MCHC (31.0-37.0) g/dL RDW (11.5-15.5) % Plt Count (150-450) k/uL Lymphocytes # (1.0-4.8) k/uL Chloride (98-107) mmol/L Carbon Dioxide (22-30) mmol/L BUN (9-20) mg/dL Glucose (74-99) mg/dL POC Glucose (mg/dL) 169 H 187 H (75-99) mg/dL Hemoglobin A1c 6.4 H (4.0-6.0) % 09/13/17 09/13/17 09/13/17 Range/Units 06:10 06:17 06:17 RBC 3.63 L (4.30-5.90) m/uL Hgb 10.4 L (13.0-17.5) gm/dL Hct 35.8 L (39.0-53.0) % MCHC 29.2 L (31.0-37.0) g/dL RDW 15.8 H (11.5-15.5) % Plt Count 128 L (150-450) k/uL Lymphocytes # 0.4 L (1.0-4.8) k/uL Chloride 97 L (98-107) mmol/L Carbon Dioxide 33 H (22-30) mmol/L BUN 36 H (9-20) mg/dL Glucose 163 H (74-99) mg/dL POC Glucose (mg/dL) 176 H (75-99) mg/dL Hemoglobin A1c (4.0-6.0) % 09/13/17 Range/Units 11:27 RBC (4.30-5.90) m/uL Hgb (13.0-17.5) gm/dL Hct (39.0-53.0) % MCHC (31.0-37.0) g/dL RDW (11.5-15.5) % Plt Count (150-450) k/uL Lymphocytes # (1.0-4.8) k/uL Chloride (98-107) mmol/L Carbon Dioxide (22-30) mmol/L BUN (9-20) mg/dL Glucose (74-99) mg/dL POC Glucose (mg/dL) 204 H (75-99) mg/dL Hemoglobin A1c (4.0-6.0) % Assessment and Plan Plan: Assessment and plan #1 COPD exacerbation, chest x-ray reveals a 1.9 cm right upper lobe pulmonary mass, initially noted on x-ray in June 2017. CT of the chest performed today. #2 systolic congestive heart failure acute on chronic #3 known history of coronary artery disease with prior bypass surgery #4 ischemic cardiomyopathy with prior documented ejection fraction of less than 20% #5 AICD #6 diabetes #7 hypertension #8 hyperlipidemia #9 severe COPD #10 nicotine dependence #11 mildly abnormal troponins, likely secondary to oxygen supply and demand mismatch #12 hypomagnesemia Plan Echocardiogram with Doppler study was performed which revealed an ejection fraction of less than 20%. We would recommend to continue current dose of IV Lasix, check lytes BUN and creatinine in the morning. DNP note has been reviewed, I agree with a documented findings and plan of care. Patient was seen and examined.
--- NOTE | 2017-09-13 16:21 | P.PN ---
Subjective Progress Note Date: 09/13/17 Progress note being dictated for Dr. Peterson, Interval history: This is 62-year-old gentleman admitted with acute COPD exacerbation, acute CHF exacerbation and multiple other medical issues. Maintained on nebulized bronchodilators, empiric Rocephin, IV steroids and diuretics with breathing/wheezing improving. Diuresing well on Lasix IV push with 24-hour I&O reflecting a negative fluid balance. Nonproductive cough. Maintaining O2 sats in the high 90s on room air. Denies chest pain, palpitations. Complains of exertional shortness of breath. Chest Xray suggestive of right upper lobe mass, CT of chest performed, reporting no evidence of a pulmonary mass, dense costal cartilage calcification anterior first right rib, small mediastinal lymph nodes, large main pulmonary artery consistent with pulmonary hypertension, small right pleural effusion, minimal right basilar infiltrate and atelectasis. Creatinine 1.22. Afebrile. Objective - Vital Signs Vital signs: Vital Signs Temp 97.7 F 09/13/17 11:40 Pulse 76 09/13/17 15:25 Resp 16 09/13/17 11:40 BP 129/72 09/13/17 11:40 Pulse Ox 97 09/13/17 11:40 Intake & Output 09/12/17 09/13/17 09/13/17 18:59 06:59 18:59 Intake Total 598 600 360 Output Total 1250 800 750 Balance -652 -200 -390 Weight 117.4 kg 116.8 kg Intake: Oral 598 600 360 Output: Urine 1250 800 750 Other: Voiding Method Urinal Urinal - Exam PHYSICAL EXAM: VITAL SIGNS: As above GENERAL: Sitting up in chair, no acute distress HEENT: Conjunctivae normal. eyes normal. NECK: No JVD. No thyroid enlargement. No LNs CARDIOVASCULAR: S1, S2 muffled. Positive systolic murmur RESPIRATION: Breath sounds diminished in the bases. Bibasilar crackles with expiratory wheezing. ABDOMEN: Soft, nontender . No guarding. no masses palpable. Bowel sounds heard. LEGS: positive edema, no cyanosis PSYCHIATRY: Alert and oriented -3, mood and affect normal. NERVOUS SYSTEM: Cranial N 2-12 grossly normal. Moves all 4 limbs. Diffuse weakness No focal deficits. No sensory deficit. Skin: no ulcer no rash Joints: No active swelling. No inflammation. Lymphatic system. No LN neck axilla or groin. - Labs CBC & Chem 7: 09/13/17 06:17 09/13/17 06:17 Labs: Abnormal Lab Results - Last 24 Hours (Table) 09/12/17 09/12/17 09/12/17 Range/Units 03:04 16:55 20:38 RBC (4.30-5.90) m/uL Hgb (13.0-17.5) gm/dL Hct (39.0-53.0) % MCHC (31.0-37.0) g/dL RDW (11.5-15.5) % Plt Count (150-450) k/uL Lymphocytes # (1.0-4.8) k/uL Chloride (98-107) mmol/L Carbon Dioxide (22-30) mmol/L BUN (9-20) mg/dL Glucose (74-99) mg/dL POC Glucose (mg/dL) 169 H 187 H (75-99) mg/dL Hemoglobin A1c 6.4 H (4.0-6.0) % 09/13/17 09/13/17 09/13/17 Range/Units 06:10 06:17 06:17 RBC 3.63 L (4.30-5.90) m/uL Hgb 10.4 L (13.0-17.5) gm/dL Hct 35.8 L (39.0-53.0) % MCHC 29.2 L (31.0-37.0) g/dL RDW 15.8 H (11.5-15.5) % Plt Count 128 L (150-450) k/uL Lymphocytes # 0.4 L (1.0-4.8) k/uL Chloride 97 L (98-107) mmol/L Carbon Dioxide 33 H (22-30) mmol/L BUN 36 H (9-20) mg/dL Glucose 163 H (74-99) mg/dL POC Glucose (mg/dL) 176 H (75-99) mg/dL Hemoglobin A1c (4.0-6.0) % 09/13/17 Range/Units 11:27 RBC (4.30-5.90) m/uL Hgb (13.0-17.5) gm/dL Hct (39.0-53.0) % MCHC (31.0-37.0) g/dL RDW (11.5-15.5) % Plt Count (150-450) k/uL Lymphocytes # (1.0-4.8) k/uL Chloride (98-107) mmol/L Carbon Dioxide (22-30) mmol/L BUN (9-20) mg/dL Glucose (74-99) mg/dL POC Glucose (mg/dL) 204 H (75-99) mg/dL Hemoglobin A1c (4.0-6.0) % Assessment and Plan Assessment: 1. Shortness of Breath, Multifactorial, Acute on Chronic CHF Exacerbation,, systolic dysfunction, EF less than 20%, acute COPD exacerbation with acute purulent tracheobronchitis 2. Ischemic cardiomyopathy, AICD 3. CAD with history of DC,CABG 4. Right upper lobe mass lesion on chest x-ray, no evidence of right upper lobe mass as per pulmonary review of CT 5. Diabetes mellitus type 2 6. Troponin 0.035, indeterminate 7. Hyperlipidemia 8. Sleep apnea, wears CPAP at home 9. Continued ongoing nicotine dependence Plan: Continue on current medication regime ,monitoring and symptomatic treatment. Maintain nebulized bronchodilators, empiric antibiotics-Rocephin, steroids and diuretics. Strict I&O's. Increase ambulation as tolerated. The impression and plan of care has been dictated as directed. : I performed a history and examination of this patient, discussed the same with the dictator. I agree with the dictator's note ,documented as a scribe. Any additional findings or plans will be noted.
[2017-09-13 16:35] LABS: Glucose,Whole Blood 162 mg/dL (75-99)
[2017-09-13] MEDS: HYDROmorphone 2 MG TAB PO PRN (20:41)
[2017-09-13 20:47] LABS: Glucose,Whole Blood 255 mg/dL (75-99)
[2017-09-13] MEDS: TEMAZEPAM 15 MG CAP PO PRN (20:52)
[2017-09-14 06:03] LABS: Glucose,Whole Blood 228 mg/dL (75-99)
[2017-09-14 06:09] LABS: Basophils % (A) 0 %; Eosinophils % (A) 0 %; HCT 35.6 % (39.0-53.0); HGB 10.4 gm/dL (13.0-17.5); Hypochromasia Marked; Lymphocytes # (A) 0.3 k/uL (1.0-4.8); Lymphocytes % (A) 5 %; MCH 28.7 pg (25.0-35.0); MCHC 29.2 g/dL (31.0-37.0); MCV 98.2 fL (80.0-100.0); Macrocytosis Slight; Mean Platelet Volume 8.7; Monocytes # (A) 0.3 k/uL (0-1.0); Monocytes % (A) 5 %; Neutrophils # (A) 5.9 k/uL (1.3-7.7); Neutrophils % (A) 89 %; Platelet Count 112 k/uL (150-450); RBC 3.62 m/uL (4.30-5.90); RDW 15.7 % (11.5-15.5); WBC 6.6 k/uL (3.8-10.6)
[2017-09-14 06:21] LABS: Anion Gap 9 mmol/L; Blood Urea Nitrogen 38 mg/dL (9-20); Calcium 9.2 mg/dL (8.4-10.2); Carbon Dioxide 31 mmol/L (22-30); Chloride 97 mmol/L (98-107); Glucose 185 mg/dL (74-99); Sodium 137 mmol/L (137-145)
[2017-09-14 06:24] LABS: Potassium 4.2 mmol/L (3.5-5.1)
[2017-09-14] MEDS: methylPREDNISolone SOD SUCCI 125 MG/2 ML VIAL IV SCH ×4 (06:44→23:43)
[2017-09-14] MEDS: INSULIN ASPART 100 UNIT/ML 1 ML 10 ML VIAL SQ SCH ×4 (06:44→21:07)
[2017-09-14] MEDS: IPRATROPIUM-ALBUTEROL 3 ML NEB INHALATION SCH ×4 (07:38→19:56)
[2017-09-14] MEDS: ASPIRIN 81 MG PO SCH (08:15)
[2017-09-14] MEDS: ATORVASTATIN 20 MG TAB PO SCH (08:15)
[2017-09-14] MEDS: FUROSEMIDE 10 MG/ML 4 ML VIAL IV SCH (08:15)
[2017-09-14] MEDS: cefTRIAXone IN SWFI 1,000 MG/10 ML SYRINGE IVP SCH (08:15)
[2017-09-14] MEDS: HEPARIN SODIUM,PORCINE 5,000 UNIT/ML 1 ML VIAL SQ SCH ×3 (08:15→23:43)
[2017-09-14] MEDS: metFORMIN 500 MG TAB PO SCH ×2 (08:16→20:26)
[2017-09-14] MEDS: SPIRONOLACTONE 25 MG TAB PO SCH ×2 (08:16→20:26)
[2017-09-14] MEDS: LISINOPRIL 2.5 MG TAB PO SCH (08:16)
--- NOTE | 2017-09-14 11:26 | P.PN ---
Subjective Progress Note Date: 09/14/17 Principal diagnosis: Acute exacerbation of systolic congestive heart failure This is a very pleasant 62-year-old gentleman who follows with Dr. Merritt is his primary care physician. He has a history of coronary artery disease with previous coronary artery bypass grafting, ischemic cardiomyopathy with ejection fraction less than 20% status post AICD placement, diabetes mellitus, hypertension, hyperlipidemia, morbid obesity, daily alcohol use including 6-8 beers per day. He also follows with Dr. Iraheta in our office for history of Gold stage III chronic obstructive pulmonary disease with FEV1 value of 40% of predicted. Unfortunately he continues to smoke. He also has a history of obstructive sleep apnea with an HI of 24 and utilizes CPAP in an auto mode with a minimum pressure of 5 and a maximum pressure of 17, he utilizes an AirFit P 10 nasal pillow. He had presented here on 09/11/2017 with complaints of increasing shortness of breath cough and congestion. His cough has been nonproductive. He utilized multiple breathing treatments without much improvement. His chest x-ray showed evidence of chronic obstructive pulmonary disease, cardiomegaly. CT scan of the chest revealed the same with no evidence of pulmonary mass. There is noted dense calcification in the cartilage in the right upper lobe. He is seen again today in follow-up on the selective care unit. He is awake and alert in no acute distress. He is breathing slightly better today as compared to yesterday. He is currently maintaining O2 saturations in the mid to upper 90s on room air. He's been afebrile. No tachycardia. No tachypnea. Blood pressure stable. No leukocytosis. Hemoglobin 10.4. Platelet count 128,000. Creatinine 1.22. Troponin 0.033, 0.035. ProBNP 6670. Echocardiogram reveals evidence of severe left ventricular systolic dysfunction with estimated ejection fraction less than 20% . There is global hypokinesia. He remains on Lasix 40 mg IV push every 12 hours. Currently in a negative balance. The patient is seen again today 09/14/2017 in follow-up on the selective care unit. He is awake and alert in no acute distress. He is breathing easier today as compared to yesterday. He is quite dyspneic on minimal exertion however. He is maintaining good O2 saturations up to 99% on 2 L/m per nasal cannula. Currently afebrile. No tachycardia. No tachypnea. No leukocytosis. Hemoglobin 10.4. Creatinine 1.08. He remains in a negative balance. Objective - Vital Signs Vital signs: Vital Signs Temp 97.4 F L 09/14/17 08:00 Pulse 58 L 09/14/17 08:00 Resp 18 09/14/17 08:00 BP 118/57 09/14/17 08:00 Pulse Ox 99 09/14/17 08:00 Intake & Output 09/13/17 09/14/17 09/14/17 18:59 06:59 18:59 Intake Total 600 20 Output Total 950 1600 Balance -350 -1580 Weight 116.2 kg Intake: IV 20 flush 20 Oral 600 Output: Urine 950 1600 Other: Voiding Method Urinal Urinal # Voids 2 - Exam GENERAL EXAM: Morbidly obese. Alert, active, comfortable in no apparent distress. HEAD: Normocephalic. EYES: Normal reaction of pupils, equal size. NOSE: Clear with pink turbinates. THROAT: There is crowding of the posterior pharynx No erythema or exudates. NECK: Short. No masses, no JVD. CHEST: No chest wall deformity. LUNGS: Equal air entry with crackles in the posterior bases. Diminished. CVS: S1 and S2 normal with an audible murmur, regular rhythm. ABDOMEN: Obese. Normal bowel sounds, no guarding or rigidity. SPINE: No scoliosis or deformity SKIN: No rashes CENTRAL NERVOUS SYSTEM: No focal deficits, tone is normal in all 4 extremities. EXTREMITIES: There is 1-2+ peripheral edema. No clubbing, no cyanosis. Peripheral pulses are intact. - Labs CBC & Chem 7: 09/14/17 05:37 09/14/17 05:37 Labs: Abnormal Lab Results - Last 24 Hours (Table) 09/13/17 09/13/17 09/13/17 Range/Units 11:27 16:33 20:46 RBC (4.30-5.90) m/uL Hgb (13.0-17.5) gm/dL Hct (39.0-53.0) % MCHC (31.0-37.0) g/dL RDW (11.5-15.5) % Plt Count (150-450) k/uL Lymphocytes # (1.0-4.8) k/uL Chloride (98-107) mmol/L Carbon Dioxide (22-30) mmol/L BUN (9-20) mg/dL Glucose (74-99) mg/dL POC Glucose (mg/dL) 204 H 162 H 255 H (75-99) mg/dL 09/14/17 09/14/17 09/14/17 Range/Units 05:37 05:37 06:01 RBC 3.62 L (4.30-5.90) m/uL Hgb 10.4 L (13.0-17.5) gm/dL Hct 35.6 L (39.0-53.0) % MCHC 29.2 L (31.0-37.0) g/dL RDW 15.7 H (11.5-15.5) % Plt Count 112 L (150-450) k/uL Lymphocytes # 0.3 L (1.0-4.8) k/uL Chloride 97 L (98-107) mmol/L Carbon Dioxide 31 H (22-30) mmol/L BUN 38 H (9-20) mg/dL Glucose 185 H (74-99) mg/dL POC Glucose (mg/dL) 228 H (75-99) mg/dL Assessment and Plan Assessment: Impression: #1 Acute exacerbation of chronic systolic congestive heart failure with severe left ventricular systolic dysfunction with an estimated ejection fraction less than 20% and global hypokinesia. #2 Acute exacerbation of Gold stage III chronic obstructive pulmonary disease. #3 Chronic and ongoing tobacco dependence. #4 Acute on chronic hypoxic respiratory failure secondary to above. #5 Morbid obesity. #6 Obstructive sleep apnea, currently on CPAP auto settings with a minimum of 5 and a maximum of 17. He wears a medium-sized aAirFit P 10 nasal pillow. #7 Coronary artery disease with previous coronary artery bypass grafting. #8 Ischemic cardiomyopathy, status post AICD placement. #9 Hypertension. #10 Hyperlipidemia. #11 Diabetes mellitus. #12 Osteoarthritis. #13 Daily alcohol use. #14 Poor overall functional performance based on the above-mentioned multiple comorbidities. Plan: The patient was seen and evaluated by Dr. Walker. He is slightly improved today as compared to yesterday. Not quite back to his baseline. We'll continue his treatment for the COPD exacerbation. Continue DuoNeb inhalations and IV Solu- Medrol. He is on empiric antibiotics in the form of ceftriaxone. Continue with diuretics with accurate I's and O's. We'll increase his activity as tolerated. We'll continue to follow and make further recommendations based on his clinical status. I, the cosigning physician, performed a history & physical examination of the patient. Lungs sounds have crackles in the bilateral posterior bases. End expiratory wheeze. Diminished.. Maintaining good O2 saturations in the 90s on room air. I discussed the assessment and plan of care with my nurse practitioner, Narcisa Graham. I attest to the above note as dictated by her.
[2017-09-14 12:04] LABS: Glucose,Whole Blood 194 mg/dL (75-99)
[2017-09-14] MEDS: METOPROLOL SUCCINATE (ER) 100 MG TAB.ER.24H PO SCH (12:56)
--- NOTE | 2017-09-14 14:54 | P.PN ---
Subjective Progress Note Date: 09/14/17 This is a 62-year-old gentleman who follows with Dr. Moore in our office, he actually has an appointment with him today for an office visit and a device check. Patient has known history of systolic congestive heart failure, coronary artery disease with prior bypass surgery, ischemic cardiomyopathy with prior known ejection fraction of less than 20%, prior AICD, advanced COPD, atrial tachycardia, diabetes, pulmonary hypertension, and up until recently has been and every day smoker. He presents to the hospital with symptoms of severe shortness of breath, he states that on Tuesday evening he had 7 separate episodes of severe shortness of breath, he did use his inhalers and breathing treatment with minimal relief, came to the emergency room for further evaluation. EKG on arrival showed a paced rhythm with underlying normal sinus rhythm. Chest x-ray reveals COPD, cardiomegaly, 1.9 cm right upper lobe pulmonary mass. Chest x-ray performed in June 2017 did reveal a possible new 2 cm right upper lobe nodule. Chest x-ray in May revealed COPD, no mention of mass. Blood pressure 144/60 with a heart rate in the 60s, temperature 97.9, 95% on 3 L of oxygen. Hemoglobin 10.9, platelet count 136. Sodium 141, potassium 3.9, BUN 28, creatinine 1.0. Troponins 0.030, 0.033, 0.035. BNP level 6670. Influenza A and B-. Echocardiogram with Doppler study which was performed in January 2017 revealed an ejection fraction of less than 20% . At the time of my examination this morning, patient states he is still short of breath however significantly improved from admission here. 09/13/2017 Patient was seen and examined this morning, his weight is down 1 kg today. Continues to be on IV Lasix. Creatinine today 1.2, hemoglobin 10.4. Repeat chest x-ray does not reveal any acute pulmonary disease. CTA of the chest was ordered because of the mass noted on the chest x-ray. Blood pressure and heart rate stable. 09/14/2017 Patient seen and examined this morning, sitting up at the side of his bed. CT of the chest was performed yesterday because of suspicion of a right upper lobe mass. Findings revealed bullous emphysema more noticeable in the right upper lobe. No evidence of pulmonary mass. Did also reveal pulmonary emphysema. Mild infiltrate. Repeat chest x-ray performed today did not reveal any evidence of acute pulmonary disease. The patient did diurese well through the night, however his weight is as same today. Hemoglobin 10.4, BUN 38, creatinine 1.0. We will discontinue the IV Lasix, we will put the patient on 60 mg of Lasix twice a day. He was taking 40 mg twice a day at home prior to his admission. Objective - Vital Signs Vital signs: Vital Signs Temp 97.0 F L 09/14/17 12:00 Pulse 62 09/14/17 12:00 Resp 18 09/14/17 12:00 BP 122/62 09/14/17 12:00 Pulse Ox 98 09/14/17 12:00 Intake & Output 09/13/17 09/14/17 09/14/17 18:59 06:59 18:59 Intake Total 600 20 118 Output Total 950 1600 Balance -350 -1580 118 Weight 116.2 kg Intake: IV 20 flush 20 Oral 600 118 Output: Urine 950 1600 Other: Voiding Method Urinal Urinal # Voids 2 - Exam PHYSICAL EXAMINATION: HEENT: Head is atraumatic, normocephalic. Pupils equal, round. Neck is supple. There is no elevated jugular venous pressure. HEART EXAMINATION: Heart S1 S2 1 systolic murmur is heard CHEST EXAMINATION: Lungs reveal improvement in air entry throughout all lung rene. Mild diminished air entry to the bases ABDOMEN: Soft, obese, nontender. Bowel sounds are heard. No organomegaly noted. EXTREMITIES: 1+ peripheral pulses with 1+ evidence of peripheral edema and no calf tenderness noted. NEUROLOGIC patient is awake, alert and oriented -3. - Labs CBC & Chem 7: 09/14/17 05:37 09/14/17 05:37 Labs: Abnormal Lab Results - Last 24 Hours (Table) 09/13/17 09/13/17 09/14/17 Range/Units 16:33 20:46 05:37 RBC 3.62 L (4.30-5.90) m/uL Hgb 10.4 L (13.0-17.5) gm/dL Hct 35.6 L (39.0-53.0) % MCHC 29.2 L (31.0-37.0) g/dL RDW 15.7 H (11.5-15.5) % Plt Count 112 L (150-450) k/uL Lymphocytes # 0.3 L (1.0-4.8) k/uL Chloride (98-107) mmol/L Carbon Dioxide (22-30) mmol/L BUN (9-20) mg/dL Glucose (74-99) mg/dL POC Glucose (mg/dL) 162 H 255 H (75-99) mg/dL 09/14/17 09/14/17 09/14/17 Range/Units 05:37 06:01 11:55 RBC (4.30-5.90) m/uL Hgb (13.0-17.5) gm/dL Hct (39.0-53.0) % MCHC (31.0-37.0) g/dL RDW (11.5-15.5) % Plt Count (150-450) k/uL Lymphocytes # (1.0-4.8) k/uL Chloride 97 L (98-107) mmol/L Carbon Dioxide 31 H (22-30) mmol/L BUN 38 H (9-20) mg/dL Glucose 185 H (74-99) mg/dL POC Glucose (mg/dL) 228 H 194 H (75-99) mg/dL Assessment and Plan Plan: Assessment and plan #1 COPD exacerbation, chest x-ray reveals a 1.9 cm right upper lobe pulmonary mass, initially noted on x-ray in June 2017. CT of the chest performed today. #2 systolic congestive heart failure acute on chronic #3 known history of coronary artery disease with prior bypass surgery #4 ischemic cardiomyopathy with prior documented ejection fraction of less than 20% #5 AICD #6 diabetes #7 hypertension #8 hyperlipidemia #9 severe COPD #10 nicotine dependence #11 mildly abnormal troponins, likely secondary to oxygen supply and demand mismatch #12 hypomagnesemia Plan Echocardiogram with Doppler study was performed which revealed an ejection fraction of less than 20%. We will discontinue the IV Lasix today, start the patient on Lasix 60 mg by mouth twice a day. Check lytes BUN and creatinine in the morning. DNP note has been reviewed, I agree with a documented findings and plan of care. Patient was seen and examined.
[2017-09-14 16:33] LABS: Glucose,Whole Blood 185 mg/dL (75-99)
[2017-09-14] MEDS: FUROSEMIDE 20 MG TAB PO SCH (17:43)
--- NOTE | 2017-09-14 18:59 | P.PN ---
Subjective Progress Note Date: 09/14/17 Progress note being dictated for Dr. Peterson, Interval history: This is 62-year-old gentleman admitted with acute COPD exacerbation, acute CHF exacerbation and multiple other medical issues. Maintained on nebulized bronchodilators, empiric Rocephin, IV steroids and diuretics with breathing/wheezing improving. Diuresing well on Lasix IV push with 24-hour I&O reflecting a negative fluid balance. Nonproductive cough. Maintaining O2 sats in the high 90s on room air. Denies chest pain, palpitations. Complains of exertional shortness of breath. Chest Xray suggestive of right upper lobe mass, CT of chest performed, reporting no evidence of a pulmonary mass, dense costal cartilage calcification anterior first right rib, small mediastinal lymph nodes, large main pulmonary artery consistent with pulmonary hypertension, small right pleural effusion, minimal right basilar infiltrate and atelectasis. Creatinine 1.22. Afebrile. 09/14/17 no overnight events. Breathing continues to improve. Maintaining O2 sats in the high 90s on 2 L nasal cannula. Renal function continues to improve , currently at 1.08. Diuresing on IV push Lasix with 24-hour I&O reflecting a negative fluid balance. Denies chest pain, palpitations. Objective - Vital Signs Vital signs: Vital Signs Temp 97.6 F 09/14/17 16:59 Pulse 61 09/14/17 16:59 Resp 18 09/14/17 16:59 BP 130/70 09/14/17 16:59 Pulse Ox 95 09/14/17 16:59 Intake & Output 09/13/17 09/14/17 09/14/17 18:59 06:59 18:59 Intake Total 600 20 568 Output Total 950 1600 1000 Balance -717 -1580 -328 Weight 116.2 kg Intake: IV 20 flush 20 Oral 600 568 Output: Urine 950 1600 1000 Other: Voiding Method Urinal Urinal # Voids 2 - Exam PHYSICAL EXAM: VITAL SIGNS: As above GENERAL: Sitting up in chair, no acute distress HEENT: Conjunctivae normal. eyes normal. NECK: No JVD. No thyroid enlargement. No LNs CARDIOVASCULAR: S1, S2 muffled. Positive systolic murmur RESPIRATION: Breath sounds diminished in the bases. Bibasilar crackles with occasional faint left basilar expiratory wheeze ABDOMEN: Soft, nontender . No guarding. no masses palpable. Bowel sounds heard. LEGS: positive edema, no cyanosis PSYCHIATRY: Alert and oriented -3, mood and affect normal. NERVOUS SYSTEM: Cranial N 2-12 grossly normal. Moves all 4 limbs. Diffuse weakness No focal deficits. Skin: no ulcer no rash Joints: No active swelling. No inflammation. Lymphatic system. No LN neck axilla or groin. - Labs CBC & Chem 7: 09/14/17 05:37 09/14/17 05:37 Labs: Abnormal Lab Results - Last 24 Hours (Table) 09/13/17 09/14/17 09/14/17 Range/Units 20:46 05:37 05:37 RBC 3.62 L (4.30-5.90) m/uL Hgb 10.4 L (13.0-17.5) gm/dL Hct 35.6 L (39.0-53.0) % MCHC 29.2 L (31.0-37.0) g/dL RDW 15.7 H (11.5-15.5) % Plt Count 112 L (150-450) k/uL Lymphocytes # 0.3 L (1.0-4.8) k/uL Chloride 97 L (98-107) mmol/L Carbon Dioxide 31 H (22-30) mmol/L BUN 38 H (9-20) mg/dL Glucose 185 H (74-99) mg/dL POC Glucose (mg/dL) 255 H (75-99) mg/dL 09/14/17 09/14/17 09/14/17 Range/Units 06:01 11:55 16:27 RBC (4.30-5.90) m/uL Hgb (13.0-17.5) gm/dL Hct (39.0-53.0) % MCHC (31.0-37.0) g/dL RDW (11.5-15.5) % Plt Count (150-450) k/uL Lymphocytes # (1.0-4.8) k/uL Chloride (98-107) mmol/L Carbon Dioxide (22-30) mmol/L BUN (9-20) mg/dL Glucose (74-99) mg/dL POC Glucose (mg/dL) 228 H 194 H 185 H (75-99) mg/dL Assessment and Plan Assessment: 1. Shortness of Breath, Multifactorial, Acute on Chronic CHF Exacerbation,, systolic dysfunction, EF less than 20%, acute COPD exacerbation with acute purulent tracheobronchitis 2. Ischemic cardiomyopathy, AICD 3. CAD with history of IN,CABG 4. Right upper lobe mass lesion on chest x-ray, no evidence of right upper lobe mass as per pulmonary review of CT 5. Diabetes mellitus type 2 6. Troponin 0.035, indeterminate 7. Hyperlipidemia 8. Sleep apnea, wears CPAP at home 9. Continued ongoing nicotine dependence Plan: Continue on current medication regime ,monitoring and symptomatic treatment. Lasix converted to oral. Maintain nebulized bronchodilators, empiric antibiotics-Rocephin, steroids and diuretics. Strict I&O's. Increase ambulation as tolerated. Discharge planning in progress pending clearance of cardiology and pulmonary. The impression and plan of care has been dictated as directed. : I performed a history and examination of this patient, discussed the same with the dictator. I agree with the dictator's note ,documented as a scribe. Any additional findings or plans will be noted.
[2017-09-14] MEDS: HYDROmorphone 2 MG TAB PO PRN (20:26)
[2017-09-14] MEDS: SENNOSIDES-DOCUSATE SODIUM 1 EACH TAB PO SCH (20:26)
[2017-09-14] MEDS: DOCUSATE 100 MG CAP PO SCH ×2 (20:26→20:28)
[2017-09-14] MEDS: TEMAZEPAM 15 MG CAP PO PRN (20:26)
[2017-09-14 20:31] LABS: Glucose,Whole Blood 214 mg/dL (75-99)
[2017-09-15] MEDS: IPRATROPIUM-ALBUTEROL 3 ML NEB INHALATION SCH ×4 (05:13→20:07)
[2017-09-15 06:08] LABS: Basophils % (A) 0 %; Eosinophils % (A) 0 %; HCT 34.9 % (39.0-53.0); HGB 10.9 gm/dL (13.0-17.5); Hypochromasia Slight; Lymphocytes # (A) 0.4 k/uL (1.0-4.8); Lymphocytes % (A) 6 %; MCH 29.6 pg (25.0-35.0); MCHC 31.1 g/dL (31.0-37.0); Mean Platelet Volume 8.5; Monocytes # (A) 0.4 k/uL (0-1.0); Monocytes % (A) 7 %; Neutrophils # (A) 5.2 k/uL (1.3-7.7); Neutrophils % (A) 86 %; Platelet Count 127 k/uL (150-450); RBC 3.68 m/uL (4.30-5.90); RDW 15.6 % (11.5-15.5); WBC 6.1 k/uL (3.8-10.6)
[2017-09-15 06:13] LABS: Glucose,Whole Blood 249 mg/dL (75-99)
[2017-09-15 06:21] LABS: Anion Gap 12 mmol/L; Blood Urea Nitrogen 38 mg/dL (9-20); Calcium 8.9 mg/dL (8.4-10.2); Carbon Dioxide 33 mmol/L (22-30); Chloride 92 mmol/L (98-107); Glucose 204 mg/dL (74-99); Potassium 4.1 mmol/L (3.5-5.1); Sodium 137 mmol/L (137-145)
[2017-09-15] MEDS: INSULIN ASPART 100 UNIT/ML 1 ML 10 ML VIAL SQ SCH ×4 (06:55→21:15)
[2017-09-15] MEDS: methylPREDNISolone SOD SUCCI 125 MG/2 ML VIAL IV SCH ×2 (06:55→23:15)
[2017-09-15] MEDS: ATORVASTATIN 20 MG TAB PO SCH (08:30)
[2017-09-15] MEDS: ASPIRIN 81 MG PO SCH (08:30)
[2017-09-15] MEDS: HEPARIN SODIUM,PORCINE 5,000 UNIT/ML 1 ML VIAL SQ SCH ×3 (08:30→23:02)
[2017-09-15] MEDS: LISINOPRIL 2.5 MG TAB PO SCH (08:31)
[2017-09-15] MEDS: FUROSEMIDE 20 MG TAB PO SCH ×2 (08:31→16:55)
[2017-09-15] MEDS: DOCUSATE 100 MG CAP PO SCH ×2 (08:31→21:05)
[2017-09-15] MEDS: metFORMIN 500 MG TAB PO SCH ×2 (08:32→21:05)
[2017-09-15] MEDS: METOPROLOL SUCCINATE (ER) 100 MG TAB.ER.24H PO SCH (08:32)
[2017-09-15] MEDS: SENNOSIDES-DOCUSATE SODIUM 1 EACH TAB PO SCH ×2 (08:32→21:05)
[2017-09-15] MEDS: SPIRONOLACTONE 25 MG TAB PO SCH ×2 (08:33→21:05)
[2017-09-15] MEDS: cefTRIAXone IN SWFI 1,000 MG/10 ML SYRINGE IVP SCH (08:34)
[2017-09-15 11:49] LABS: Glucose,Whole Blood 235 mg/dL (75-99)
--- NOTE | 2017-09-15 12:06 | P.PN ---
Subjective Progress Note Date: 09/15/17 Principal diagnosis: Acute exacerbation of systolic congestive heart failure This is a very pleasant 62-year-old gentleman who follows with Dr. Merritt is his primary care physician. He has a history of coronary artery disease with previous coronary artery bypass grafting, ischemic cardiomyopathy with ejection fraction less than 20% status post AICD placement, diabetes mellitus, hypertension, hyperlipidemia, morbid obesity, daily alcohol use including 6-8 beers per day. He also follows with Dr. Iraheta in our office for history of Gold stage III chronic obstructive pulmonary disease with FEV1 value of 40% of predicted. Unfortunately he continues to smoke. He also has a history of obstructive sleep apnea with an HI of 24 and utilizes CPAP in an auto mode with a minimum pressure of 5 and a maximum pressure of 17, he utilizes an AirFit P 10 nasal pillow. He had presented here on 09/11/2017 with complaints of increasing shortness of breath cough and congestion. His cough has been nonproductive. He utilized multiple breathing treatments without much improvement. His chest x-ray showed evidence of chronic obstructive pulmonary disease, cardiomegaly. CT scan of the chest revealed the same with no evidence of pulmonary mass. There is noted dense calcification in the cartilage in the right upper lobe. He is seen again today in follow-up on the selective care unit. He is awake and alert in no acute distress. He is breathing slightly better today as compared to yesterday. He is currently maintaining O2 saturations in the mid to upper 90s on room air. He's been afebrile. No tachycardia. No tachypnea. Blood pressure stable. No leukocytosis. Hemoglobin 10.4. Platelet count 128,000. Creatinine 1.22. Troponin 0.033, 0.035. ProBNP 6670. Echocardiogram reveals evidence of severe left ventricular systolic dysfunction with estimated ejection fraction less than 20% . There is global hypokinesia. He remains on Lasix 40 mg IV push every 12 hours. Currently in a negative balance. The patient is seen again today 09/14/2017 in follow-up on the selective care unit. He is awake and alert in no acute distress. He is breathing easier today as compared to yesterday. He is quite dyspneic on minimal exertion however. He is maintaining good O2 saturations up to 99% on 2 L/m per nasal cannula. Currently afebrile. No tachycardia. No tachypnea. No leukocytosis. Hemoglobin 10.4. Creatinine 1.08. He remains in a negative balance. The patient is seen again today 09/15/2017 in follow-up on the selective care unit. He remains awake and alert in no acute distress. He is maintaining good O2 saturations in the 90s on room air. He denies any worsening shortness of breath, cough or congestion. He is still not quite back to his baseline. He's been up to the bathroom and in the shower today. No leukocytosis. Hemoglobin 10.9. Creatinine 1.00. He remains in a negative balance. He is afebrile. Hemodynamically stable. Objective - Vital Signs Vital signs: Vital Signs Temp 97.7 F 09/15/17 08:45 Pulse 76 09/15/17 11:40 Resp 18 09/15/17 08:45 BP 128/60 09/15/17 08:45 Pulse Ox 97 09/15/17 08:45 Intake & Output 09/14/17 09/15/17 09/15/17 18:59 06:59 18:59 Intake Total 568 200 240 Output Total 1000 1475 Balance -432 -1275 240 Weight 117.4 kg Intake: IV 20 flush 20 Oral 568 180 240 Output: Urine 1000 1475 Other: Voiding Method Urinal - Exam GENERAL EXAM: Morbidly obese. Alert, active, comfortable in no apparent distress. HEAD: Normocephalic. EYES: Normal reaction of pupils, equal size. NOSE: Clear with pink turbinates. THROAT: There is crowding of the posterior pharynx No erythema or exudates. NECK: Short. No masses, no JVD. CHEST: No chest wall deformity. LUNGS: Equal air entry with crackles in the posterior bases. Diminished. CVS: S1 and S2 normal with an audible murmur, regular rhythm. ABDOMEN: Obese. Normal bowel sounds, no guarding or rigidity. SPINE: No scoliosis or deformity SKIN: No rashes CENTRAL NERVOUS SYSTEM: No focal deficits, tone is normal in all 4 extremities. EXTREMITIES: There is 1-2+ peripheral edema. No clubbing, no cyanosis. Peripheral pulses are intact. - Labs CBC & Chem 7: 09/15/17 05:38 09/15/17 05:38 Labs: Abnormal Lab Results - Last 24 Hours (Table) 09/14/17 09/14/17 09/14/17 Range/Units 11:55 16:27 20:30 RBC (4.30-5.90) m/uL Hgb (13.0-17.5) gm/dL Hct (39.0-53.0) % RDW (11.5-15.5) % Plt Count (150-450) k/uL Lymphocytes # (1.0-4.8) k/uL Chloride (98-107) mmol/L Carbon Dioxide (22-30) mmol/L BUN (9-20) mg/dL Glucose (74-99) mg/dL POC Glucose (mg/dL) 194 H 185 H 214 H (75-99) mg/dL 09/15/17 09/15/17 09/15/17 Range/Units 05:38 05:38 06:11 RBC 3.68 L (4.30-5.90) m/uL Hgb 10.9 L (13.0-17.5) gm/dL Hct 34.9 L (39.0-53.0) % RDW 15.6 H (11.5-15.5) % Plt Count 127 L (150-450) k/uL Lymphocytes # 0.4 L (1.0-4.8) k/uL Chloride 92 L (98-107) mmol/L Carbon Dioxide 33 H (22-30) mmol/L BUN 38 H (9-20) mg/dL Glucose 204 H (74-99) mg/dL POC Glucose (mg/dL) 249 H (75-99) mg/dL 09/15/17 Range/Units 11:47 RBC (4.30-5.90) m/uL Hgb (13.0-17.5) gm/dL Hct (39.0-53.0) % RDW (11.5-15.5) % Plt Count (150-450) k/uL Lymphocytes # (1.0-4.8) k/uL Chloride (98-107) mmol/L Carbon Dioxide (22-30) mmol/L BUN (9-20) mg/dL Glucose (74-99) mg/dL POC Glucose (mg/dL) 235 H (75-99) mg/dL Assessment and Plan Assessment: Impression: #1 Acute exacerbation of chronic systolic congestive heart failure with severe left ventricular systolic dysfunction with an estimated ejection fraction less than 20% and global hypokinesia. #2 Acute exacerbation of Gold stage III chronic obstructive pulmonary disease. #3 Chronic and ongoing tobacco dependence. #4 Acute on chronic hypoxic respiratory failure secondary to above. #5 Morbid obesity. #6 Obstructive sleep apnea, currently on CPAP auto settings with a minimum of 5 and a maximum of 17. He wears a medium-sized AirFit P 10 nasal pillow. #7 Coronary artery disease with previous coronary artery bypass grafting. #8 Ischemic cardiomyopathy, status post AICD placement. #9 Hypertension. #10 Hyperlipidemia. #11 Diabetes mellitus. #12 Osteoarthritis. #13 Daily alcohol use. #14 Poor overall functional performance based on the above-mentioned multiple comorbidities. Plan: The patient was seen and evaluated by Dr. Tompkins. He is improved today as compared to yesterday. Maintaining good O2 saturations in the 90s on room air. We'll continue his treatment for the COPD exacerbation. Continue DuoNeb inhalations. We will convert to prednisone taper. Continue with diuretics with accurate I's and O's. We'll increase his activity as tolerated. We'll continue to follow and make further recommendations based on his clinical status. I, the cosigning physician, performed a history & physical examination of the patient. Lungs sounds have crackles in the bilateral posterior bases. End expiratory wheeze. Diminished.. Maintaining good O2 saturations in the 90s on room air. I discussed the assessment and plan of care with my nurse practitioner, Narcisa Graham. I attest to the above note as dictated by her.
--- NOTE | 2017-09-15 14:17 | P.PN ---
Subjective Progress Note Date: 09/15/17 This is a 62-year-old gentleman who follows with Dr. Moore in our office, he actually has an appointment with him today for an office visit and a device check. Patient has known history of systolic congestive heart failure, coronary artery disease with prior bypass surgery, ischemic cardiomyopathy with prior known ejection fraction of less than 20%, prior AICD, advanced COPD, atrial tachycardia, diabetes, pulmonary hypertension, and up until recently has been and every day smoker. He presents to the hospital with symptoms of severe shortness of breath, he states that on Tuesday evening he had 7 separate episodes of severe shortness of breath, he did use his inhalers and breathing treatment with minimal relief, came to the emergency room for further evaluation. EKG on arrival showed a paced rhythm with underlying normal sinus rhythm. Chest x-ray reveals COPD, cardiomegaly, 1.9 cm right upper lobe pulmonary mass. Chest x-ray performed in June 2017 did reveal a possible new 2 cm right upper lobe nodule. Chest x-ray in May revealed COPD, no mention of mass. Blood pressure 144/60 with a heart rate in the 60s, temperature 97.9, 95% on 3 L of oxygen. Hemoglobin 10.9, platelet count 136. Sodium 141, potassium 3.9, BUN 28, creatinine 1.0. Troponins 0.030, 0.033, 0.035. BNP level 6670. Influenza A and B-. Echocardiogram with Doppler study which was performed in January 2017 revealed an ejection fraction of less than 20% . At the time of my examination this morning, patient states he is still short of breath however significantly improved from admission here. 09/13/2017 Patient was seen and examined this morning, his weight is down 1 kg today. Continues to be on IV Lasix. Creatinine today 1.2, hemoglobin 10.4. Repeat chest x-ray does not reveal any acute pulmonary disease. CTA of the chest was ordered because of the mass noted on the chest x-ray. Blood pressure and heart rate stable. 09/14/2017 Patient seen and examined this morning, sitting up at the side of his bed. CT of the chest was performed yesterday because of suspicion of a right upper lobe mass. Findings revealed bullous emphysema more noticeable in the right upper lobe. No evidence of pulmonary mass. Did also reveal pulmonary emphysema. Mild infiltrate. Repeat chest x-ray performed today did not reveal any evidence of acute pulmonary disease. The patient did diurese well through the night, however his weight is as same today. Hemoglobin 10.4, BUN 38, creatinine 1.0. We will discontinue the IV Lasix, we will put the patient on 60 mg of Lasix twice a day. He was taking 40 mg twice a day at home prior to his admission. 09/15/2007 Patient seen and examined this morning, feeling much better overall. He is doing some ambulating. He still does have some shortness of breath, however significantly improved from his admission here. Maintaining oxygen saturations in the 90s on room air. Objective - Vital Signs Vital signs: Vital Signs Temp 97.0 F L 09/15/17 12:29 Pulse 59 L 09/15/17 12:29 Resp 16 09/15/17 12:29 BP 136/58 09/15/17 12:29 Pulse Ox 96 09/15/17 12:29 Intake & Output 09/14/17 09/15/17 09/15/17 18:59 06:59 18:59 Intake Total 568 200 240 Output Total 1000 1475 Balance -432 -1275 240 Weight 117.4 kg Intake: IV 20 flush 20 Oral 568 180 240 Output: Urine 1000 1475 Other: Voiding Method Urinal - Exam PHYSICAL EXAMINATION: HEENT: Head is atraumatic, normocephalic. Pupils equal, round. Neck is supple. There is no elevated jugular venous pressure. HEART EXAMINATION: Heart S1 S2 1 systolic murmur is heard CHEST EXAMINATION: Lungs reveal improvement in air entry throughout all lung rene. Mild diminished air entry to the bases ABDOMEN: Soft, obese, nontender. Bowel sounds are heard. No organomegaly noted. EXTREMITIES: 1+ peripheral pulses with 1+ evidence of peripheral edema and no calf tenderness noted. NEUROLOGIC patient is awake, alert and oriented -3. - Labs CBC & Chem 7: 09/15/17 05:38 09/15/17 05:38 Labs: Abnormal Lab Results - Last 24 Hours (Table) 09/14/17 09/14/17 09/15/17 Range/Units 16:27 20:30 05:38 RBC 3.68 L (4.30-5.90) m/uL Hgb 10.9 L (13.0-17.5) gm/dL Hct 34.9 L (39.0-53.0) % RDW 15.6 H (11.5-15.5) % Plt Count 127 L (150-450) k/uL Lymphocytes # 0.4 L (1.0-4.8) k/uL Chloride (98-107) mmol/L Carbon Dioxide (22-30) mmol/L BUN (9-20) mg/dL Glucose (74-99) mg/dL POC Glucose (mg/dL) 185 H 214 H (75-99) mg/dL 09/15/17 09/15/17 09/15/17 Range/Units 05:38 06:11 11:47 RBC (4.30-5.90) m/uL Hgb (13.0-17.5) gm/dL Hct (39.0-53.0) % RDW (11.5-15.5) % Plt Count (150-450) k/uL Lymphocytes # (1.0-4.8) k/uL Chloride 92 L (98-107) mmol/L Carbon Dioxide 33 H (22-30) mmol/L BUN 38 H (9-20) mg/dL Glucose 204 H (74-99) mg/dL POC Glucose (mg/dL) 249 H 235 H (75-99) mg/dL Assessment and Plan Plan: Assessment and plan #1 COPD exacerbation, chest x-ray reveals a 1.9 cm right upper lobe pulmonary mass, initially noted on x-ray in June 2017. CT of the chest performed today. #2 systolic congestive heart failure acute on chronic #3 known history of coronary artery disease with prior bypass surgery #4 ischemic cardiomyopathy with prior documented ejection fraction of less than 20% #5 AICD #6 diabetes #7 hypertension #8 hyperlipidemia #9 severe COPD #10 nicotine dependence #11 mildly abnormal troponins, likely secondary to oxygen supply and demand mismatch #12 hypomagnesemia Plan From cardiology's perspective, we will recommend to continue the patient on his current medications. Plan on possible discharge home within the next 24-48 hours once cleared by pulmonary. DNP note has been reviewed, I agree with a documented findings and plan of care. Patient was seen and examined.
--- NOTE | 2017-09-15 15:06 | P.PN ---
Subjective Progress Note Date: 09/15/17 Progress note being dictated for Dr. Peterson, Interval history: This is 62-year-old gentleman admitted with acute COPD exacerbation, acute CHF exacerbation and multiple other medical issues. Maintained on nebulized bronchodilators, empiric Rocephin, IV steroids and diuretics with breathing/wheezing improving. Diuresing well on Lasix IV push with 24-hour I&O reflecting a negative fluid balance. Nonproductive cough. Maintaining O2 sats in the high 90s on room air. Denies chest pain, palpitations. Complains of exertional shortness of breath. Chest Xray suggestive of right upper lobe mass, CT of chest performed, reporting no evidence of a pulmonary mass, dense costal cartilage calcification anterior first right rib, small mediastinal lymph nodes, large main pulmonary artery consistent with pulmonary hypertension, small right pleural effusion, minimal right basilar infiltrate and atelectasis. Creatinine 1.22. Afebrile. 09/14/17 no overnight events. Breathing continues to improve. Maintaining O2 sats in the high 90s on 2 L nasal cannula. Renal function continues to improve , currently at 1.08. Diuresing on IV push Lasix with 24-hour I&O reflecting a negative fluid balance. Denies chest pain, palpitations. 09/15/2017 breathing continues to improve, maintaining O2 sats of 96-100% on room air. Exertional dyspnea improving. Telemetry paced. Diuresing well on oral Lasix, 24-hour I&O reflecting a negative fluid balance. Objective - Vital Signs Vital signs: Vital Signs Temp 97.0 F L 09/15/17 12:29 Pulse 59 L 09/15/17 12:29 Resp 16 09/15/17 12:29 BP 136/58 09/15/17 12:29 Pulse Ox 96 09/15/17 12:29 Intake & Output 09/14/17 09/15/17 09/15/17 18:59 06:59 18:59 Intake Total 568 200 240 Output Total 1000 1475 Balance -432 -1275 240 Weight 117.4 kg Intake: IV 20 flush 20 Oral 568 180 240 Output: Urine 1000 1475 Other: Voiding Method Urinal - Exam PHYSICAL EXAM: VITAL SIGNS: As above GENERAL: Sitting up at side of bedside, no acute distress HEENT: Conjunctivae normal. eyes normal. Oral mucosa moist NECK: No JVD. No thyroid enlargement. No LNs CARDIOVASCULAR: S1, S2 muffled. Positive systolic murmur RESPIRATION: Breath sounds diminished in the bases. Bibasilar crackles. ABDOMEN: Soft, nontender . No guarding. no masses palpable. Bowel sounds heard. LEGS: positive edema, no cyanosis PSYCHIATRY: Alert and oriented -3, mood and affect normal. NERVOUS SYSTEM: Cranial N 2-12 grossly normal. Moves all 4 limbs. Diffuse weakness No focal deficits. Skin: no ulcer no rash Joints: No active swelling. No inflammation. Lymphatic system. No LN neck axilla or groin. - Labs CBC & Chem 7: 09/15/17 05:38 09/15/17 05:38 Labs: Abnormal Lab Results - Last 24 Hours (Table) 09/14/17 09/14/17 09/15/17 Range/Units 16:27 20:30 05:38 RBC 3.68 L (4.30-5.90) m/uL Hgb 10.9 L (13.0-17.5) gm/dL Hct 34.9 L (39.0-53.0) % RDW 15.6 H (11.5-15.5) % Plt Count 127 L (150-450) k/uL Lymphocytes # 0.4 L (1.0-4.8) k/uL Chloride (98-107) mmol/L Carbon Dioxide (22-30) mmol/L BUN (9-20) mg/dL Glucose (74-99) mg/dL POC Glucose (mg/dL) 185 H 214 H (75-99) mg/dL 09/15/17 09/15/17 09/15/17 Range/Units 05:38 06:11 11:47 RBC (4.30-5.90) m/uL Hgb (13.0-17.5) gm/dL Hct (39.0-53.0) % RDW (11.5-15.5) % Plt Count (150-450) k/uL Lymphocytes # (1.0-4.8) k/uL Chloride 92 L (98-107) mmol/L Carbon Dioxide 33 H (22-30) mmol/L BUN 38 H (9-20) mg/dL Glucose 204 H (74-99) mg/dL POC Glucose (mg/dL) 249 H 235 H (75-99) mg/dL Assessment and Plan Assessment: 1. Shortness of Breath, Multifactorial, Acute on Chronic CHF Exacerbation,, systolic dysfunction, EF less than 20%, acute COPD exacerbation with acute purulent tracheobronchitis 2. Ischemic cardiomyopathy, AICD 3. CAD with history of [place],CABG 4. Right upper lobe mass lesion on chest x-ray, no evidence of right upper lobe mass as per pulmonary review of CT 5. Diabetes mellitus type 2 6. Troponin 0.035, indeterminate 7. Hyperlipidemia 8. Sleep apnea, wears CPAP at home 9. Continued ongoing nicotine dependence Plan: Continue on current medication regime , Lasix, monitoring and symptomatic treatment. Continue on nebulized bronchodilators, empiric antibiotics-Rocephin , steroids and diuretics. Continue increasing ambulation as tolerated. Discharge planning in progress for tomorrow, pending pulmonary/cardiology clearance. The impression and plan of care has been dictated as directed. : I performed a history and examination of this patient, discussed the same with the dictator. I agree with the dictator's note ,documented as a scribe. Any additional findings or plans will be noted.
[2017-09-15 17:05] LABS: Glucose,Whole Blood 245 mg/dL (75-99)
[2017-09-15 21:07] LABS: Glucose,Whole Blood 190 mg/dL (75-99)
[2017-09-15] MEDS: HYDROmorphone 2 MG TAB PO PRN (21:14)
[2017-09-16] MEDS: IPRATROPIUM-ALBUTEROL 3 ML NEB INHALATION PRN (05:00)
[2017-09-16 05:49] LABS: Glucose,Whole Blood 112 mg/dL (75-99)
[2017-09-16] MEDS: INSULIN ASPART 100 UNIT/ML 1 ML 10 ML VIAL SQ SCH ×4 (06:03→21:09)
[2017-09-16 06:06] LABS: Basophils % (A) 0 %; Eosinophils # (A) 0.1 k/uL (0-0.7); Eosinophils % (A) 1 %; HCT 37.8 % (39.0-53.0); HGB 11.4 gm/dL (13.0-17.5); Hypochromasia Moderate; Lymphocytes # (A) 1.5 k/uL (1.0-4.8); Lymphocytes % (A) 19 %; MCH 28.7 pg (25.0-35.0); MCHC 30.1 g/dL (31.0-37.0); MCV 95.6 fL (80.0-100.0); Mean Platelet Volume 9.2; Monocytes # (A) 0.5 k/uL (0-1.0); Monocytes % (A) 7 %; Neutrophils # (A) 5.8 k/uL (1.3-7.7); Neutrophils % (A) 73 %; Platelet Count 135 k/uL (150-450); RBC 3.96 m/uL (4.30-5.90); RDW 15.5 % (11.5-15.5); WBC 7.9 k/uL (3.8-10.6)
[2017-09-16 06:22] LABS: Anion Gap 8 mmol/L; Blood Urea Nitrogen 38 mg/dL (9-20); Carbon Dioxide 39 mmol/L (22-30); Chloride 92 mmol/L (98-107); Glucose 106 mg/dL (74-99); Potassium 3.7 mmol/L (3.5-5.1); Sodium 139 mmol/L (137-145)
[2017-09-16] MEDS: IPRATROPIUM-ALBUTEROL 3 ML NEB INHALATION SCH ×5 (07:52→20:20)
[2017-09-16] MEDS: HEPARIN SODIUM,PORCINE 5,000 UNIT/ML 1 ML VIAL SQ SCH ×2 (08:52→16:27)
[2017-09-16] MEDS: DOCUSATE 100 MG CAP PO SCH ×2 (08:53→21:08)
[2017-09-16] MEDS: ASPIRIN 81 MG PO SCH (08:53)
[2017-09-16] MEDS: ATORVASTATIN 20 MG TAB PO SCH (08:53)
[2017-09-16] MEDS: FUROSEMIDE 20 MG TAB PO SCH ×2 (08:54→16:27)
[2017-09-16] MEDS: metFORMIN 500 MG TAB PO SCH ×2 (08:55→21:09)
[2017-09-16] MEDS: METOPROLOL SUCCINATE (ER) 100 MG TAB.ER.24H PO SCH (08:55)
[2017-09-16] MEDS: LISINOPRIL 2.5 MG TAB PO SCH (08:55)
[2017-09-16] MEDS: SPIRONOLACTONE 25 MG TAB PO SCH ×2 (08:56→21:08)
[2017-09-16] MEDS: SENNOSIDES-DOCUSATE SODIUM 1 EACH TAB PO SCH ×2 (08:56→21:08)
[2017-09-16] MEDS ORDERED: predniSONE 20 MG TAB PO SCH (09:00)
[2017-09-16] MEDS: cefTRIAXone IN SWFI 1,000 MG/10 ML SYRINGE IVP SCH (09:06)
--- NOTE | 2017-09-16 10:09 | P.PN ---
Subjective Progress Note Date: 09/16/17 Principal diagnosis: Acute exacerbation of systolic congestive heart failure This is a very pleasant 62-year-old gentleman who follows with Dr. Merritt is his primary care physician. He has a history of coronary artery disease with previous coronary artery bypass grafting, ischemic cardiomyopathy with ejection fraction less than 20% status post AICD placement, diabetes mellitus, hypertension, hyperlipidemia, morbid obesity, daily alcohol use including 6-8 beers per day. He also follows with Dr. Iraheta in our office for history of Gold stage III chronic obstructive pulmonary disease with FEV1 value of 40% of predicted. Unfortunately he continues to smoke. He also has a history of obstructive sleep apnea with an HI of 24 and utilizes CPAP in an auto mode with a minimum pressure of 5 and a maximum pressure of 17, he utilizes an AirFit P 10 nasal pillow. He had presented here on 09/11/2017 with complaints of increasing shortness of breath cough and congestion. His cough has been nonproductive. He utilized multiple breathing treatments without much improvement. His chest x-ray showed evidence of chronic obstructive pulmonary disease, cardiomegaly. CT scan of the chest revealed the same with no evidence of pulmonary mass. There is noted dense calcification in the cartilage in the right upper lobe. He is seen again today in follow-up on the selective care unit. He is awake and alert in no acute distress. He is breathing slightly better today as compared to yesterday. He is currently maintaining O2 saturations in the mid to upper 90s on room air. He's been afebrile. No tachycardia. No tachypnea. Blood pressure stable. No leukocytosis. Hemoglobin 10.4. Platelet count 128,000. Creatinine 1.22. Troponin 0.033, 0.035. ProBNP 6670. Echocardiogram reveals evidence of severe left ventricular systolic dysfunction with estimated ejection fraction less than 20% . There is global hypokinesia. He remains on Lasix 40 mg IV push every 12 hours. Currently in a negative balance. The patient is seen again today 09/14/2017 in follow-up on the selective care unit. He is awake and alert in no acute distress. He is breathing easier today as compared to yesterday. He is quite dyspneic on minimal exertion however. He is maintaining good O2 saturations up to 99% on 2 L/m per nasal cannula. Currently afebrile. No tachycardia. No tachypnea. No leukocytosis. Hemoglobin 10.4. Creatinine 1.08. He remains in a negative balance. The patient is seen again today 09/15/2017 in follow-up on the selective care unit. He remains awake and alert in no acute distress. He is maintaining good O2 saturations in the 90s on room air. He denies any worsening shortness of breath, cough or congestion. He is still not quite back to his baseline. He's been up to the bathroom and in the shower today. No leukocytosis. Hemoglobin 10.9. Creatinine 1.00. He remains in a negative balance. He is afebrile. Hemodynamically stable. The patient is seen again today 09/16/2017 in follow-up on the selective care unit. He is currently sitting up in bed. He is awake and alert in no acute distress. He is maintaining good O2 saturations in the 90s on room air. He has been up ambulating in the hallway without any acute respiratory distress. He denies any worsening shortness of breath, cough or congestion. No leukocytosis. Creatinine 1.20. Afebrile. Objective - Vital Signs Vital signs: Vital Signs Temp 98.3 F 09/16/17 08:45 Pulse 62 09/16/17 08:45 Resp 18 09/16/17 08:45 BP 112/70 09/16/17 08:45 Pulse Ox 97 09/16/17 08:45 Intake & Output 09/15/17 09/16/17 09/16/17 18:59 06:59 18:59 Intake Total 720 Output Total 500 Balance 720 -500 Weight 113.9 kg Intake: Oral 720 Output: Urine 500 Other: Voiding Method Urinal Urinal # Voids 2 1 # Bowel Movements 1 - Exam GENERAL EXAM: Morbidly obese. Alert, active, comfortable in no apparent distress. HEAD: Normocephalic. EYES: Normal reaction of pupils, equal size. NOSE: Clear with pink turbinates. THROAT: There is crowding of the posterior pharynx No erythema or exudates. NECK: Short. No masses, no JVD. CHEST: No chest wall deformity. LUNGS: Equal air entry with crackles in the posterior bases. Diminished. CVS: S1 and S2 normal with an audible murmur, regular rhythm. ABDOMEN: Obese. Normal bowel sounds, no guarding or rigidity. SPINE: No scoliosis or deformity SKIN: No rashes CENTRAL NERVOUS SYSTEM: No focal deficits, tone is normal in all 4 extremities. EXTREMITIES: There is 1-2+ peripheral edema. No clubbing, no cyanosis. Peripheral pulses are intact. - Labs CBC & Chem 7: 09/16/17 05:41 09/16/17 05:41 Labs: Abnormal Lab Results - Last 24 Hours (Table) 09/15/17 09/15/17 09/15/17 Range/Units 11:47 17:02 21:05 RBC (4.30-5.90) m/uL Hgb (13.0-17.5) gm/dL Hct (39.0-53.0) % MCHC (31.0-37.0) g/dL Plt Count (150-450) k/uL Chloride (98-107) mmol/L Carbon Dioxide (22-30) mmol/L BUN (9-20) mg/dL Glucose (74-99) mg/dL POC Glucose (mg/dL) 235 H 245 H 190 H (75-99) mg/dL 09/16/17 09/16/17 09/16/17 Range/Units 05:41 05:41 05:48 RBC 3.96 L (4.30-5.90) m/uL Hgb 11.4 L (13.0-17.5) gm/dL Hct 37.8 L (39.0-53.0) % MCHC 30.1 L (31.0-37.0) g/dL Plt Count 135 L (150-450) k/uL Chloride 92 L (98-107) mmol/L Carbon Dioxide 39 H (22-30) mmol/L BUN 38 H (9-20) mg/dL Glucose 106 H (74-99) mg/dL POC Glucose (mg/dL) 112 H (75-99) mg/dL Assessment and Plan Assessment: Impression: #1 Acute exacerbation of chronic systolic congestive heart failure with severe left ventricular systolic dysfunction with an estimated ejection fraction less than 20% and global hypokinesia. #2 Acute exacerbation of Gold stage III chronic obstructive pulmonary disease. #3 Chronic and ongoing tobacco dependence. #4 Acute on chronic hypoxic respiratory failure secondary to above. #5 Morbid obesity. #6 Obstructive sleep apnea, currently on CPAP auto settings with a minimum of 5 and a maximum of 17. He wears a medium-sized AirFit P 10 nasal pillow. #7 Coronary artery disease with previous coronary artery bypass grafting. #8 Ischemic cardiomyopathy, status post AICD placement. #9 Hypertension. #10 Hyperlipidemia. #11 Diabetes mellitus. #12 Osteoarthritis. #13 Daily alcohol use. #14 Poor overall functional performance based on the above-mentioned multiple comorbidities. Plan: The patient was seen and evaluated by Dr. Tompkins. He is improved today as compared to yesterday. He is cleared for discharge from the pulmonary standpoint. Maintaining good O2 saturations in the 90s on room air. Continue DuoNeb inhalations. Complete his course of antibiotics. Complete a prednisone taper. He will follow-up in our office in 1-2 weeks' time. I, the cosigning physician, performed a history & physical examination of the patient. Lungs sounds have end expiratory wheeze. Diminished.. Maintaining good O2 saturations in the 90s on room air. I discussed the assessment and plan of care with my nurse practitioner, Narcisa Graham. I attest to the above note as dictated by her.
[2017-09-16 11:46] LABS: Glucose,Whole Blood 161 mg/dL (75-99)
--- NOTE | 2017-09-16 13:50 | P.PN ---
Subjective Progress Note Date: 09/16/17 This is a 62-year-old gentleman who follows with Dr. Birmingham in our office. Patient has known history of systolic congestive heart failure, coronary artery disease with prior bypass surgery, ischemic cardiomyopathy with prior known ejection fraction of less than 20%, prior AICD, advanced COPD, atrial tachycardia, diabetes, pulmonary hypertension, and up until recently has been an every day smoker. He presented to the hospital with symptoms of severe shortness of breath, he states that on Tuesday evening he had 7 separate episodes of severe shortness of breath, he did use his inhalers and breathing treatment with minimal relief, came to the emergency room for further evaluation. EKG on arrival showed a paced rhythm with underlying sinus rhythm. Chest x-ray reveals COPD, cardiomegaly, 1.9 cm right upper lobe pulmonary mass. Chest x-ray performed in June 2017 did reveal a possible new 2 cm right upper lobe nodule. Chest x-ray in May revealed COPD, no mention of mass. Troponins 0.030, 0.033, 0.035. BNP level 6670. Influenza A and B-. Echocardiogram with Doppler study which was performed in January 2017 revealed an ejection fraction of less than 20%. At the time of my examination this afternoon, patient is feeling significantly better. He is sitting up on the side of the bed eating his lunch. Objective - Vital Signs Vital signs: Vital Signs Temp 98.3 F 09/16/17 08:45 Pulse 64 09/16/17 11:30 Resp 18 09/16/17 08:45 BP 112/70 09/16/17 08:45 Pulse Ox 97 09/16/17 08:45 Intake & Output 09/15/17 09/16/17 09/16/17 18:59 06:59 18:59 Intake Total 720 236 Output Total 500 Balance 720 -500 236 Weight 113.9 kg Intake: Oral 720 236 Output: Urine 500 Other: Voiding Method Urinal Urinal # Voids 2 1 # Bowel Movements 1 - Exam PHYSICAL EXAMINATION: HEENT: [Head is atraumatic, normocephalic. Pupils equal, round. Neck is supple. There is no elevated jugular venous pressure.] HEART EXAMINATION: [Heart sounds regular, S1 and S2 with a systolic murmur.] CHEST EXAMINATION:[ Lungs reveal diminished air entry bilaterally. No chest wall tenderness is noted on palpation or with deep breathing.] ABDOMEN: [ Soft, nontender. Bowel sounds are heard. No organomegaly noted]. EXTREMITIES:[ 2+ peripheral pulses with no evidence of peripheral edema and no calf tenderness noted]. NEUROLOGIC [patient is awake, alert and oriented x3.] . - Labs CBC & Chem 7: 09/16/17 05:41 09/16/17 05:41 Labs: Abnormal Lab Results - Last 24 Hours (Table) 09/15/17 09/15/17 09/16/17 Range/Units 17:02 21:05 05:41 RBC 3.96 L (4.30-5.90) m/uL Hgb 11.4 L (13.0-17.5) gm/dL Hct 37.8 L (39.0-53.0) % MCHC 30.1 L (31.0-37.0) g/dL Plt Count 135 L (150-450) k/uL Chloride (98-107) mmol/L Carbon Dioxide (22-30) mmol/L BUN (9-20) mg/dL Glucose (74-99) mg/dL POC Glucose (mg/dL) 245 H 190 H (75-99) mg/dL 09/16/17 09/16/17 09/16/17 Range/Units 05:41 05:48 11:43 RBC (4.30-5.90) m/uL Hgb (13.0-17.5) gm/dL Hct (39.0-53.0) % MCHC (31.0-37.0) g/dL Plt Count (150-450) k/uL Chloride 92 L (98-107) mmol/L Carbon Dioxide 39 H (22-30) mmol/L BUN 38 H (9-20) mg/dL Glucose 106 H (74-99) mg/dL POC Glucose (mg/dL) 112 H 161 H (75-99) mg/dL Assessment and Plan Assessment: #1 COPD exacerbation #2 systolic congestive heart failure, acute on chronic #3 history of coronary artery disease with prior bypass surgery #4 ischemic cardiomyopathy with most recent documented ejection fraction of less than 20% #5 AICD #6 diabetes #7 hypertension #8 hyperlipidemia #9 mildly abnormal troponins, likely secondary to oxygen supply demand mismatch Plan: from size cutter perspective, patient is stable for discharge home once cleared by pulmonary. Medications are reviewed we'll continue the same. He will follow-up with Dr. Birmingham in the office. LABORATORY SPECIALIST note has been reviewed, I agree with a documented findings and plan of care. Patient was seen and examined.
[2017-09-16 16:58] LABS: Glucose,Whole Blood 205 mg/dL (75-99)
--- NOTE | 2017-09-16 16:59 | P.DS ---
Providers Date of admission: 09/11/17 16:18 Expected date of discharge: 09/16/17 Attending physician: Rishi Peterson Consults: 09/11/17 16:18 Consult Physician Routine Consulting Provider: Gisella Iraheta Consult Reason/Comments: CHF COPD Do you want consulting provider notified?: Yes 09/11/17 17:39 Consult Physician Routine Consulting Provider: Bertrand Cleveland Consult Reason/Comments: CHF Do you want consulting provider notified?: Yes Primary care physician: Gisella Iraheta Hospital Course: Final Diagnoses: 1. Shortness of Breath, Multifactorial, Acute on Chronic CHF Exacerbation,, systolic dysfunction, EF less than 20%, acute COPD exacerbation with acute purulent tracheobronchitis 2. Ischemic cardiomyopathy, AICD 3. CAD with history of [place],CABG 4. Right upper lobe mass lesion on chest x-ray, no evidence of right upper lobe mass as per pulmonary review of CT 5. Diabetes mellitus type 2 6. Troponin 0.035, indeterminate 7. Hyperlipidemia 8. Sleep apnea, wears CPAP at home 9. Continued ongoing nicotine dependence Hospital course:This is 62-year-old gentleman admitted with acute COPD exacerbation, acute CHF exacerbation and multiple other medical issues. Maintained on nebulized bronchodilators, empiric Rocephin, IV steroids and diuretics. Evaluated by pulmonary and cardiology. Chest Xray suggestive of right upper lobe mass, CT of chest performed, reporting no evidence of a pulmonary mass, dense costal cartilage calcification anterior first right rib, small mediastinal lymph nodes, large main pulmonary artery consistent with pulmonary hypertension, small right pleural effusion, minimal right basilar infiltrate and atelectasis. Significant clinical improvement. Cleared by both cardiology and pulmonary for discharge. Patient is being discharged home in a stable condition with guarded prognosis. PHYSICAL EXAM: GENERAL: VSS,A & O X 3, no acute distressCARDIOVASCULAR: S1, S2 muffled. Positive systolic murmur.RESPIRATION: Breath sounds diminished in the bases. Bibasilar crackles.ABDOMEN: Soft, nontender . No guarding. Bowel sounds heard.NERVOUS SYSTEM: No focal deficits. The impression and plan of care has been dictated as directed. : I performed a history and examination of this patient, discussed the same with the dictator. I agree with the dictator's note ,documented as a scribe. Any additional findings or plans will be noted. Time taken: 35 minutes Patient Condition at Discharge: Stable Plan - Discharge Summary Discharge Rx Participant: No New Discharge Prescriptions: New ALPRAZolam [Xanax] 0.25 mg PO TID PRN #20 tab PRN Reason: Anxiety Furosemide [Lasix] 60 mg PO BID@0900,1600 #180 tab Lisinopril [Zestril] 2.5 mg PO DAILY #30 tab Docusate [Colace] 100 mg PO BID #0 cap predniSONE 10 mg PO DIRECTED #30 tab Sennosides-Docusate Sodium [Senokot-S] 2 each PO BID tab Cefuroxime Axetil [Ceftin] 500 mg PO BID #10 tab Continue Atorvastatin [Lipitor] 20 mg PO DAILY metFORMIN HCL [Glucophage] 500 mg PO BID Albuterol Inhaler [Ventolin Hfa Inhaler] 2 puff INHALATION RT-Q4H PRN PRN Reason: Shortness Of Breath Metoprolol Succinate [Toprol XL] 100 mg PO DAILY Spironolactone [Aldactone] 25 mg PO BID Aspirin [Adult Low Dose Aspirin EC] 81 mg PO DAILY Albuterol Nebulized [Ventolin Nebulized] 2.5 mg INHALATION RT-QID #0 Discontinued Furosemide [Lasix] 40 mg PO BID Discharge Medication List Atorvastatin [Lipitor] 20 mg PO DAILY 05/18/16 [History] metFORMIN HCL [Glucophage] 500 mg PO BID 02/13/17 [History] Albuterol Inhaler [Ventolin Hfa Inhaler] 2 puff INHALATION RT-Q4H PRN 05/28/17 [ History] Metoprolol Succinate [Toprol XL] 100 mg PO DAILY 05/28/17 [History] Aspirin [Adult Low Dose Aspirin EC] 81 mg PO DAILY 09/11/17 [History] Spironolactone [Aldactone] 25 mg PO BID 09/11/17 [History] ALPRAZolam [Xanax] 0.25 mg PO TID PRN #20 tab 09/16/17 [Rx] Albuterol Nebulized [Ventolin Nebulized] 2.5 mg INHALATION RT-QID #0 09/16/17 [ Rx] Cefuroxime Axetil [Ceftin] 500 mg PO BID #10 tab 09/16/17 [Rx] Docusate [Colace] 100 mg PO BID #0 cap 09/16/17 [Rx] Furosemide [Lasix] 60 mg PO BID@0900,1600 #180 tab 09/16/17 [Rx] Lisinopril [Zestril] 2.5 mg PO DAILY #30 tab 09/16/17 [Rx] Sennosides-Docusate Sodium [Senokot-S] 2 each PO BID tab 09/16/17 [Rx] predniSONE 10 mg PO DIRECTED #30 tab 09/16/17 [Rx] Follow up Appointment(s)/Referral(s): Gisella Iraheta MD [Primary Care Provider] - 09/28/17 1:30 pm (Tuesday.) Ambulatory/Diagnostic Orders: Complete Blood Count w/diff [LAB.AMB] Time Frame: 3 Days, Location: Determined By Patient Activity/Diet/Wound Care/Special Instructions: Confirm cardiology follow-up appointment prior to discharge. Diet: Consistent carb,CHF DIET, ALANA Activity: limited till F/U Plz give patient info/ contact info on [employer] alert
[2017-09-16 20:46] LABS: Glucose,Whole Blood 203 mg/dL (75-99)
[2017-09-16] MEDS: HYDROmorphone 2 MG TAB PO PRN (21:08)
[2017-09-16] MEDS: TEMAZEPAM 15 MG CAP PO PRN (21:08)
[2017-09-16 23:07] VITALS: RESP 16; TEMP 96.6
[2017-09-17] MEDS: HEPARIN SODIUM,PORCINE 5,000 UNIT/ML 1 ML VIAL SQ SCH (00:14)
[2017-09-17 04:50] VITALS: BP 120/65
[2017-09-17 05:47] LABS: Glucose,Whole Blood 127 mg/dL (75-99)
[2017-09-17 05:56] LABS: Basophils % (A) 0 %; Eosinophils # (A) 0.3 k/uL (0-0.7); Eosinophils % (A) 3 %; HCT 37.6 % (39.0-53.0); HGB 11.5 gm/dL (13.0-17.5); Hypochromasia Slight; Lymphocytes # (A) 1.6 k/uL (1.0-4.8); Lymphocytes % (A) 19 %; MCH 29.3 pg (25.0-35.0); MCHC 30.7 g/dL (31.0-37.0); MCV 95.2 fL (80.0-100.0); Mean Platelet Volume 7.9; Monocytes # (A) 0.6 k/uL (0-1.0); Monocytes % (A) 7 %; Neutrophils # (A) 5.9 k/uL (1.3-7.7); Neutrophils % (A) 69 %; Platelet Count 135 k/uL (150-450); RBC 3.94 m/uL (4.30-5.90); RDW 15.4 % (11.5-15.5); WBC 8.5 k/uL (3.8-10.6)
[2017-09-17 06:18] LABS: Blood Urea Nitrogen 39 mg/dL (9-20); Calcium 9.2 mg/dL (8.4-10.2); Chloride 91 mmol/L (98-107); Glucose 126 mg/dL (74-99); Potassium 3.8 mmol/L (3.5-5.1); Sodium 139 mmol/L (137-145)
[2017-09-17 06:24] LABS: Anion Gap 9 mmol/L; Carbon Dioxide 39 mmol/L (22-30)
[2017-09-17] MEDS: INSULIN ASPART 100 UNIT/ML 1 ML 10 ML VIAL SQ SCH (06:26)
[2017-09-17] MEDS: IPRATROPIUM-ALBUTEROL 3 ML NEB INHALATION SCH (07:31)
[2017-09-17 07:32] VITALS: PULSE 64
== END 2017-09-17 08:05 | disposition home or self-care (01) | DRG 291 ==
LOC: EC 11:40 → 6SEL 16:18
PROVIDERS: ADMIT Hospitalist; ATTEND Hospitalist
DX: I11.0 Hypertensive heart disease with heart failure (principal); J96.21 Acute and chronic respiratory failure with hypoxia; I27.20 Pulmonary hypertension, unspecified; J44.0 Chronic obstructive pulmonary disease with (acute) lower respiratory infection; E66.01 Morbid (severe) obesity due to excess calories; E83.42 Hypomagnesemia; J44.1 Chronic obstructive pulmonary disease with (acute) exacerbation; Z99.81 Dependence on supplemental oxygen; Z95.1 Presence of aortocoronary bypass graft; I50.23 Acute on chronic systolic (congestive) heart failure; J20.9 Acute bronchitis, unspecified; G47.33 Obstructive sleep apnea (adult) (pediatric); I25.5 Ischemic cardiomyopathy; I25.10 Atherosclerotic heart disease of native coronary artery without angina pectoris; I25.2 Old myocardial infarction; E78.5 Hyperlipidemia, unspecified; E11.9 Type 2 diabetes mellitus without complications; M19.91 Primary osteoarthritis, unspecified site; F17.210 Nicotine dependence, cigarettes, uncomplicated; Z68.35 Body mass index [BMI] 35.0-35.9, adult; Z79.84 Long term (current) use of oral hypoglycemic drugs; Z79.82 Long term (current) use of aspirin; Z79.899 Other long term (current) drug therapy; Z95.810 Presence of automatic (implantable) cardiac defibrillator; Z88.1 Allergy status to other antibiotic agents; Z91.040 Latex allergy status; Z88.8 Allergy status to other drugs, medicaments and biological substances; Z91.048 Other nonmedicinal substance allergy status; Z82.49 Family history of ischemic heart disease and other diseases of the circulatory system
CPT/HCPCS: 36415; 71046; 71250; 80048; 80053; 82550; 82553; 83036; 83735; 83880; 84484; 85025; 85610; 85730; 87502; 93005; 93306; 94640; 94760; 96365; 96375; 99285

== ENCOUNTER 2017-12-04 09:54 | Emergency (ER) | payer MEDICARE ==
[2017-12-04 10:07] VITALS: RESP 18
[2017-12-04] MEDS ORDERED: ONDANSETRON 4 MG/2 ML VIAL IVP STA (10:23)
[2017-12-04] MEDS ORDERED: SODIUM CHLORIDE 0.9% 500 ML IV STA (10:23)
[2017-12-04] MEDS ORDERED: MORPHINE SULFATE 4 MG/ML SYRINGE IV STA (10:23)
[2017-12-04] MEDS ORDERED: IPRATROPIUM-ALBUTEROL 3 ML NEB INHALATION STA (10:23)
--- NOTE | 2017-12-04 10:30 | ED ---
Abdominal Pain HPI - General Chief Complaint: Abdominal Pain Stated Complaint: Abd Pain Time Seen by Provider: 12/04/17 09:56 Source: patient, EMS, RN notes reviewed Mode of arrival: EMS Limitations: no limitations - History of Present Illness Initial Comments: This is a 62-year-old male presents emergency department tingling right flank pain. Patient has had pain for one week. He states does hurt to twist and bend his back but states he has pain in his abdomen region extending to scrotum with no scrotal swelling. Patient denies any dysuria, hematuria, vomiting, diarrhea constipation. He has had some slight nausea. Patient states that he' s had no prior issues like this in the past. Patient states he does have a history of COPD, diabetes, coronary disease. Patient wears oxygen at nighttime. Patient states he did recently approximately 40 minutes prior arrival. Patient denies any fevers or chills. - Related Data Home Medications Medication Instructions Recorded Confirmed Atorvastatin [Lipitor] 20 mg PO DAILY 05/18/16 09/11/17 metFORMIN HCL [Glucophage] 500 mg PO BID 02/13/17 09/11/17 Albuterol Inhaler [Ventolin Hfa 2 puff INHALATION RT-Q4H PRN 05/28/17 09/11/17 Inhaler] Metoprolol Succinate [Toprol XL] 100 mg PO DAILY 05/28/17 09/11/17 Aspirin [Adult Low Dose Aspirin EC] 81 mg PO DAILY 09/11/17 09/11/17 Spironolactone [Aldactone] 25 mg PO BID 09/11/17 09/11/17 Previous Rx's Medication Instructions Recorded ALPRAZolam [Xanax] 0.25 mg PO TID PRN #20 tab 09/16/17 Albuterol Nebulized [Ventolin 2.5 mg INHALATION RT-QID #0 09/16/17 Nebulized] Cefuroxime Axetil [Ceftin] 500 mg PO BID #10 tab 09/16/17 Docusate [Colace] 100 mg PO BID #0 cap 09/16/17 Furosemide [Lasix] 60 mg PO BID@0900,1600 #180 tab 09/16/17 Lisinopril [Zestril] 2.5 mg PO DAILY #30 tab 09/16/17 Sennosides-Docusate Sodium 2 each PO BID tab 09/16/17 [Senokot-S] predniSONE 10 mg PO DIRECTED #30 tab 09/16/17 Hydrocodone/Acetaminophen [[place] 1 tab PO Q6HR PRN #12 tab 12/04/17 5-325] Sulfamethox-Tmp 800-160Mg [Bactrim 1 each PO Q12HR #20 tab 12/04/17 Ds] Allergies Allergy/AdvReac Type Severity Reaction Status Date / Time Latex, Natural Rubber Allergy Rash/Hives Verified 12/04/17 10:07 levofloxacin [From Levaquin] Allergy Rash/Hives Verified 12/04/17 10:07 mold Allergy Rash/Hives Verified 12/04/17 10:07 prednisone Allergy Rash/Hives Verified 12/04/17 10:07 STEROIDS Allergy Rash/Hives Uncoded 12/04/17 10:07 Review of Systems ROS Statement: Those systems with pertinent positive or pertinent negative responses have been documented in the HPI. ROS Other: All systems not noted in ROS Statement are negative. Past Medical History Past Medical History: Coronary Artery Disease (CAD), Chest Pain / Angina, Heart Failure, COPD, Diabetes Mellitus, Hyperlipidemia, Myocardial Infarction (SD), Osteoarthritis (OA) Additional Past Medical History / Comment(s): Coronary artery disease with a previous bypass surgery, ischemic cardiomyopathy with ejection fraction of less than 20%, COPD, obstructive sleep apnea with an AHI of 24 currently on auto CPAP unit, obesity, hypertension, AICD placement for ischemic cardiomyopathy, Cardiomyopathy, osteoarthritis, diabetes mellitus, hyperlipidemia, hypertension. Last Myocardial Infarction Date:: UNSURE History of Any Multi-Drug Resistant Organisms: None Reported Past Surgical History: AICD, Coronary Bypass/CABG, Heart Catheterization, Orthopedic Surgery Additional Past Surgical History / Comment(s): Pacemaker and AICD- 10/2013, CABG 1 vessel many yrs ago per pt, BILATERAL SHOULDER SURGERY , steel alcides in leg from fracture, bilat shoulders Past Anesthesia/Blood Transfusion Reactions: No Reported Reaction Type of Cardiac Device: Permanent Pacemaker, AICD Device Placement Date:: Past Psychological History: No Psychological Hx Reported Smoking Status: Current every day smoker Past Alcohol Use History: Daily Past Drug Use History: None Reported - Past Family History Mother History Unknown: Yes Father Family Medical History: Myocardial Infarction (SD) Additional Family Medical History / Comment(s): Father of a SD at the age of 56yrs. Brother(s) Family Medical History: Cancer General Exam Limitations: no limitations General appearance: alert, in no apparent distress Head exam: Present: atraumatic, normocephalic, normal inspection Eye exam: Present: normal appearance, PERRL, EOMI. Absent: scleral icterus, conjunctival injection, periorbital swelling ENT exam: Present: normal exam, normal oropharynx, mucous membranes moist Neck exam: Present: normal inspection, full ROM. Absent: tenderness, meningismus, lymphadenopathy Respiratory exam: Present: wheezes. Absent: normal lung sounds bilaterally, respiratory distress, rales, rhonchi, stridor Cardiovascular Exam: Present: regular rate, normal rhythm, normal heart sounds. Absent: systolic murmur, diastolic murmur, rubs, gallop, clicks GI/Abdominal exam: Present: soft, tenderness (Right-sided right flank moderate) , normal bowel sounds. Absent: distended, guarding, rebound, rigid Back exam: Present: full ROM, CVA tenderness (R). Absent: CVA tenderness (L), muscle spasm, paraspinal tenderness, vertebral tenderness Neurological exam: Present: alert, oriented X3, CN II-XII intact, reflexes normal. Absent: motor sensory deficit Skin exam: Present: warm, dry, intact, normal color. Absent: rash Course Vital Signs 12/04/17 12/04/17 12/04/17 10:05 10:43 10:53 Temperature 97.4 F L Pulse Rate 62 62 62 Respiratory 18 Rate Blood Pressure 126/64 O2 Sat by Pulse 99 Oximetry 12/04/17 12:03 Temperature 97.2 F L Pulse Rate 70 Respiratory 18 Rate Blood Pressure 130/70 O2 Sat by Pulse 96 Oximetry Medical Decision Making - Medical Decision Making 62-year-old male presented for right-sided scrotal pain, abdominal pain. Patient had ultrasound, CT and lab work. He is found to be some heterogeneous changes right testicle, epididymitis. CT did not reveal any signs of infection or stone on the right. Patient we given antibiotics. Patient was started on Bactrim as a has an ALLERGY to fluoroquinolones. Patient was given pain medication follow-up with urology. Return parameters were discussed. - Lab Data Result diagrams: 12/04/17 10:40 12/04/17 10:40 Lab Results 0512/04/17 12/04/17 Range/Units 10:40 10:40 10:40 WBC 7.5 (3.8-10.6) k/uL RBC 3.86 L (4.30-5.90) m/uL Hgb 11.4 L (13.0-17.5) gm/dL Hct 33.5 L (39.0-53.0) % MCV 86.6 (80.0-100.0) fL MCH 29.5 (25.0-35.0) pg MCHC 34.1 (31.0-37.0) g/dL RDW 16.3 H (11.5-15.5) % Plt Count 175 (150-450) k/uL Neutrophils % 75 % Lymphocytes % 14 % Monocytes % 7 % Eosinophils % 2 % Basophils % 1 % Neutrophils # 5.6 (1.3-7.7) k/uL Lymphocytes # 1.1 (1.0-4.8) k/uL Monocytes # 0.5 (0-1.0) k/uL Eosinophils # 0.1 (0-0.7) k/uL Basophils # 0.1 (0-0.2) k/uL Anisocytosis Slight PT 12.3 H (9.0-12.0) sec INR 1.3 H (<1.2) APTT 23.6 (22.0-30.0) sec Sodium 136 L (137-145) mmol/L Potassium 3.8 (3.5-5.1) mmol/L Chloride 94 L (98-107) mmol/L Carbon Dioxide 27 (22-30) mmol/L Anion Gap 15 mmol/L BUN 22 H (9-20) mg/dL Creatinine 0.90 (0.66-1.25) mg/dL Est GFR (CKD-EPI)AfAm >90 (>60 ml/min/1.73 sqM) Est GFR (CKD-EPI)NonAf >90 (>60 ml/min/1.73 sqM) Glucose 152 H (74-99) mg/dL Calcium 9.2 (8.4-10.2) mg/dL Total Bilirubin 2.5 H (0.2-1.3) mg/dL AST 34 (17-59) U/L ALT 25 (21-72) U/L Alkaline Phosphatase 84 (38-126) U/L Total Protein 6.2 L (6.3-8.2) g/dL Albumin 3.9 (3.5-5.0) g/dL Amylase 55 (30-110) U/L Lipase 69 (23-300) U/L Urine Color Urine Appearance (Clear) Urine pH (5.0-8.0) Ur Specific [place] (1.001-1.035) Urine Protein (Negative) Urine Glucose (UA) (Negative) Urine Ketones (Negative) Urine Blood (Negative) Urine Nitrite (Negative) Urine Bilirubin (Negative) Urine Urobilinogen (<2.0) mg/dL Ur Leukocyte Esterase (Negative) 12/04/17 Range/Units 11:27 WBC (3.8-10.6) k/uL RBC (4.30-5.90) m/uL Hgb (13.0-17.5) gm/dL Hct (39.0-53.0) % MCV (80.0-100.0) fL MCH (25.0-35.0) pg MCHC (31.0-37.0) g/dL RDW (11.5-15.5) % Plt Count (150-450) k/uL Neutrophils % % Lymphocytes % % Monocytes % % Eosinophils % % Basophils % % Neutrophils # (1.3-7.7) k/uL Lymphocytes # (1.0-4.8) k/uL Monocytes # (0-1.0) k/uL Eosinophils # (0-0.7) k/uL Basophils # (0-0.2) k/uL Anisocytosis PT (9.0-12.0) sec INR (<1.2) APTT (22.0-30.0) sec Sodium (137-145) mmol/L Potassium (3.5-5.1) mmol/L Chloride (98-107) mmol/L Carbon Dioxide (22-30) mmol/L Anion Gap mmol/L BUN (9-20) mg/dL Creatinine (0.66-1.25) mg/dL Est GFR (CKD-EPI)AfAm (>60 ml/min/1.73 sqM) Est GFR (CKD-EPI)NonAf (>60 ml/min/1.73 sqM) Glucose (74-99) mg/dL Calcium (8.4-10.2) mg/dL Total Bilirubin (0.2-1.3) mg/dL AST (17-59) U/L ALT (21-72) U/L Alkaline Phosphatase (38-126) U/L Total Protein (6.3-8.2) g/dL Albumin (3.5-5.0) g/dL Amylase (30-110) U/L Lipase (23-300) U/L Urine Color Yellow Urine Appearance Clear (Clear) Urine pH 5.5 (5.0-8.0) Ur Specific [place] 1.005 (1.001-1.035) Urine Protein Negative (Negative) Urine Glucose (UA) Negative (Negative) Urine Ketones Negative (Negative) Urine Blood Negative (Negative) Urine Nitrite Negative (Negative) Urine Bilirubin Negative (Negative) Urine Urobilinogen <2.0 (<2.0) mg/dL Ur Leukocyte Esterase Negative (Negative) Disposition Clinical Impression: Abdominal pain, Epididymitis, Scrotal pain Disposition: HOME SELF-CARE Condition: Stable Instructions: Epididymitis (ED) Additional Instructions: Follow-up with urology.Please return to the Emergency Department if symptoms worsen or any other concerns. Prescriptions: Hydrocodone/Acetaminophen [[place] 5-325] 1 tab PO Q6HR PRN #12 tab PRN Reason: Pain Sulfamethox-Tmp 800-160Mg [Bactrim Ds] 1 each PO Q12HR #20 tab Is patient prescribed a controlled substance at d/c from ED?: Yes If prescribed controlled substance>3 days was MAPS reviewed?: No When asked, does pt state using other controlled substances?: No Referrals: Mary Merritt MD [Primary Care Provider] - 1-2 days Guanaco Ashton MD [STAFF PHYSICIAN] - 1-2 days Time of Disposition: 14:12
[2017-12-04 10:59] LABS: Anisocytosis Slight; Basophils # (A) 0.1 k/uL (0-0.2); Basophils % (A) 1 %; Eosinophils # (A) 0.1 k/uL (0-0.7); Eosinophils % (A) 2 %; HCT 33.5 % (39.0-53.0); HGB 11.4 gm/dL (13.0-17.5); Lymphocytes # (A) 1.1 k/uL (1.0-4.8); Lymphocytes % (A) 14 %; MCH 29.5 pg (25.0-35.0); MCHC 34.1 g/dL (31.0-37.0); MCV 86.6 fL (80.0-100.0); Mean Platelet Volume 8.3; Monocytes # (A) 0.5 k/uL (0-1.0); Monocytes % (A) 7 %; Neutrophils # (A) 5.6 k/uL (1.3-7.7); Neutrophils % (A) 75 %; Platelet Count 175 k/uL (150-450); RBC 3.86 m/uL (4.30-5.90); RDW 16.3 % (11.5-15.5); WBC 7.5 k/uL (3.8-10.6)
[2017-12-04 11:08] LABS: Anion Gap 15 mmol/L; Blood Urea Nitrogen 22 mg/dL (9-20); Carbon Dioxide 27 mmol/L (22-30); Chloride 94 mmol/L (98-107); Glucose 152 mg/dL (74-99); Potassium 3.8 mmol/L (3.5-5.1); Sodium 136 mmol/L (137-145)
[2017-12-04 11:09] LABS: ALT 25 U/L (21-72); AST 34 U/L (17-59); Albumin 3.9 g/dL (3.5-5.0); Alkaline Phosphatase 84 U/L (38-126); Amylase 55 U/L (30-110); Calcium 9.2 mg/dL (8.4-10.2); Lipase 69 U/L (23-300); Total Bilirubin 2.5 mg/dL (0.2-1.3); Total Protein 6.2 g/dL (6.3-8.2)
--- NOTE | 2017-12-04 11:30 | XR ---
EXAMINATION TYPE: XR KUB , 2 VIEWS DATE OF EXAM ORDERED: 12/04/2017 HISTORY: Right lower quadrant pain. COMPARISON: None. FINDINGS: The lung bases are clear. Within the abdomen, the abdominal gas pattern is within normal limits. There is no evidence of obstru ction or free air. There are vascular calcifications within the pelvis and also in the left upper miroslava drant. IMPRESSION: NO ACUTE INTRA-ABDOMINAL ABNORMALITY.
--- NOTE | 2017-12-04 11:32 | XR ---
EXAMINATION TYPE: XR chest 2V DATE OF EXAM: 12/04/2017 HISTORY: abdominal pain. REFERENCE: Previous study dated 09/13/2017 there has been a midline sternotomy. There is a bipolar pac emaker in place on the left. The lungs are overinflated. The heart is enlarged. There is mild blunting of the left CP angle. The l ungs are clear. IMPRESSION: 1. COPD. 2. CARDIOMEGALY. 3. SMALL LEFT-SIDED PLEURAL EFFUSION.
[2017-12-04 11:35] LABS: Appearance,Urine Clear (Clear); Bilirubin,Urine Negative (Negative); Blood,Urine Negative (Negative); Color,Urine Yellow; Glucose,Urine (UA) Negative (Negative); Ketones,Urine Negative (Negative); Leukocyte Esterase,Urine Negative (Negative); Nitrite,Urine Negative (Negative); PH, Urine 5.5 (5.0-8.0); Protein,Urine Negative (Negative); Specific Gravity,Urine 1.005 (1.001-1.035); Urobilinogen,Urine <2.0 mg/dL (<2.0)
[2017-12-04] MEDS ORDERED: RX INFO: IV CONTRAST WAS GIVEN 1 EACH MISC MISCELLANE PRN (11:40)
[2017-12-04 11:47] LABS: INR 1.3 (<1.2); Partial Thromboplastin Time 23.6 sec (22.0-30.0); Prothrombin Time 12.3 sec (9.0-12.0)
[2017-12-04] MEDS ORDERED: MORPHINE SULFATE 4 MG/ML SYRINGE IVP STA (12:15)
--- NOTE | 2017-12-04 12:28 | CT ---
EXAMINATION TYPE: CT abdomen pelvis w con DATE OF EXAM: 12/04/2017 REFERENCE: Previous study dated 10/22/2012. HISTORY: Pain HISTORY: Rt groin pain REFERENCE: NONE CT DLP: 1773.0 mGy Automated exposure control for dose reduction was used. TECHNIQUE: Helical acquisition through the abdomen and pelvis was obtained following the oral ingesti on of without Oral Contrast and following intravenous administration of 100 mL of Isovue 300. The sushil a was reformatted in axial, coronal and sagittal projections. FINDINGS: There is minimal dependent atelectasis in the lung bases. The heart is mildly enlarged. Th ere is no pleural or pericardial fluid. Within the abdomen, the liver is normal in size. It is mildly fatty infiltrated. The spleen and gallb ladder are normal. Both adrenal glands appear normal. There is a 2.9 cm, simple appearing cyst in the upper pole of the right kidney, unchanged from previo us. The kidneys otherwise appear normal. The pancreas is normal. There is moderate atheromatous calcification of the visualized arterial tree. There is no significant retroperitoneal, iliac or inguinal adenopathy. The bladder is unremarkable. There are scattered diverticula along the left side of the colon. There is no radiographic evidence o f diverticulitis. The appendix appears normal. Small bowel loops are normal. There is moderate free fluid within the pelvis. I do not see evidence of a groin mass or inguinal hernia. There is degenerative disc disease, hypertrophic spondylosis and facet arthropathy within the spine. IMPRESSION: 1. NO EVIDENCE OF A GROIN MASS OR INGUINAL HERNIA. 2. CARDIOMEGALY. 3. FATTY INFILTRATION OF THE LIVER 4. RIGHT RENAL CYSTIC DISEASE. 5. MINIMAL, UNCOMPLICATED DIVERTICULOSIS OF THE COLON. 6. FAIRLY MARKED DEGENERATIVE CHANGES WITHIN THE SPINE. .
--- NOTE | 2017-12-04 13:43 | US ---
EXAMINATION TYPE: US scrotum with doppler. Grayscale and color Doppler Duplex imaging performed of t real scrotum. DATE OF EXAM: 12/04/2017 COMPARISON: NONE CLINICAL HISTORY: Pain. Pain right testicle x 1 week, getting worse EXAM MEASUREMENTS: TESTICLES: Right Testicle: 4.0 x 2.3 x 3.8 cm Left Testicle: 4.3 x 2.3 x 3.4 cm EPIDIDYMIS HEAD: Right Epididymis: 1.4 cm Left Epididymis: 1.2 cm Doppler performed to assess for testicular vascularity; good bilateral color flow and waveforms are s een. There is no evidence of testicular torsion. Presence of hydroceles: no Presence of varicoceles: no Cystic area left epididymis = 0.4cm Prominent right epididymis body Slightly heterogeneous right testicle IMPRESSION: 1. MILD EDEMA INVOLVING THE RIGHT TESTICLE. 2. SMALL LEFT EPIDIDYMAL CYST. 3. UROLOGICAL CONSULT IS RECOMMENDED.
[2017-12-04 14:24] VITALS: BP 146/82; PULSE 71; TEMP 98.6
== END 2017-12-04 14:25 | disposition home or self-care (01) ==
LOC: EC 09:54
DX: N45.1 Epididymitis (principal); R06.2 Wheezing; R11.0 Nausea; E78.5 Hyperlipidemia, unspecified; I25.10 Atherosclerotic heart disease of native coronary artery without angina pectoris; I11.0 Hypertensive heart disease with heart failure; I50.9 Heart failure, unspecified; E11.9 Type 2 diabetes mellitus without complications; J44.9 Chronic obstructive pulmonary disease, unspecified; M19.90 Unspecified osteoarthritis, unspecified site; G47.33 Obstructive sleep apnea (adult) (pediatric); E66.9 Obesity, unspecified; I25.2 Old myocardial infarction; F17.200 Nicotine dependence, unspecified, uncomplicated; Z79.82 Long term (current) use of aspirin; Z79.84 Long term (current) use of oral hypoglycemic drugs; Z79.899 Other long term (current) drug therapy; Z88.1 Allergy status to other antibiotic agents; Z88.8 Allergy status to other drugs, medicaments and biological substances; Z91.040 Latex allergy status; Z91.09 Other allergy status, other than to drugs and biological substances; Z99.89 Dependence on other enabling machines and devices; Z86.79 Personal history of other diseases of the circulatory system; Z99.81 Dependence on supplemental oxygen; Z68.33 Body mass index [BMI] 33.0-33.9, adult
CPT/HCPCS: 99285 ×2; 96374 ×2; 96375 ×2; 96376 ×2; 96361 ×2; 36415; 94640; 80053; 82150; 83690; 85025; 85610; 85730; 81003; 71046; 74018; 93975; 76870; 74177; J2270; J2405; Q9967

== ENCOUNTER 2017-12-14 16:48 | Inpatient (IN) | payer MEDICARE ==
[2017-12-14] MEDS ORDERED: methylPREDNISolone SOD SUCCI 125 MG/2 ML VIAL IV STA (17:22)
--- NOTE | 2017-12-14 17:26 | ED ---
General Adult HPI - General Chief complaint: Shortness of Breath Stated complaint: NEERAJ Time Seen by Provider: 12/14/17 17:12 Source: patient, EMS, RN notes reviewed Mode of arrival: EMS Limitations: no limitations - History of Present Illness Initial comments: Patient is a pleasant 62-year-old male presenting to the emergency Department with complaints of difficulty in breathing. Onset of symptoms was a day or 2 ago. No fevers. No scaling cough. Symptoms do worsen with exertion. Patient is using his oxygen more than normal. Patient had to stop smoking. Patient is having several dyspnea spells per day. Patient has used his nebulizer already 4 times today. This does include one provided by EMS when they arrived to his house. - Related Data Home Medications Medication Instructions Recorded Confirmed Atorvastatin [Lipitor] 20 mg PO DAILY 05/18/16 12/14/17 metFORMIN HCL [Glucophage] 500 mg PO BID 02/13/17 12/14/17 Albuterol Inhaler [Ventolin Hfa 2 puff INHALATION RT-Q4H PRN 05/28/17 12/14/17 Inhaler] Metoprolol Succinate [Toprol XL] 100 mg PO DAILY 05/28/17 12/14/17 Aspirin [Adult Low Dose Aspirin EC] 81 mg PO DAILY 09/11/17 12/14/17 Spironolactone [Aldactone] 25 mg PO DAILY 09/11/17 12/14/17 Furosemide [Lasix] 60 mg PO BID 12/14/17 12/14/17 Previous Rx's Medication Instructions Recorded Lisinopril [Zestril] 2.5 mg PO DAILY #30 tab 09/16/17 Allergies Allergy/AdvReac Type Severity Reaction Status Date / Time Latex, Natural Rubber Allergy Rash/Hives Verified 12/14/17 17:18 levofloxacin [From Levaquin] Allergy Rash/Hives Verified 12/14/17 17:18 mold Allergy Rash/Hives Verified 12/14/17 17:18 prednisone Allergy Rash/Hives Verified 12/14/17 17:18 STEROIDS Allergy Rash/Hives Uncoded 12/14/17 16:54 Review of Systems ROS Statement: Those systems with pertinent positive or pertinent negative responses have been documented in the HPI. ROS Other: All systems not noted in ROS Statement are negative. Constitutional: Denies: fever Eyes: Denies: eye pain ENT: Denies: ear pain Respiratory: Reports: dyspnea. Denies: cough Cardiovascular: Denies: chest pain Endocrine: Reports: fatigue Gastrointestinal: Denies: abdominal pain Genitourinary: Denies: dysuria Musculoskeletal: Denies: back pain Skin: Denies: rash Neurological: Denies: weakness Past Medical History Past Medical History: Coronary Artery Disease (CAD), Chest Pain / Angina, Heart Failure, COPD, Diabetes Mellitus, Hyperlipidemia, Myocardial Infarction (AL), Osteoarthritis (OA) Additional Past Medical History / Comment(s): Coronary artery disease with a previous bypass surgery, ischemic cardiomyopathy with ejection fraction of less than 20%, COPD, obstructive sleep apnea with an AHI of 24 currently on auto CPAP unit, obesity, hypertension, AICD placement for ischemic cardiomyopathy, Cardiomyopathy, osteoarthritis, diabetes mellitus, hyperlipidemia, hypertension. Last Myocardial Infarction Date:: UNSURE History of Any Multi-Drug Resistant Organisms: None Reported Past Surgical History: AICD, Coronary Bypass/CABG, Heart Catheterization, Orthopedic Surgery Additional Past Surgical History / Comment(s): Pacemaker and AICD- 10/2013, CABG 1 vessel many yrs ago per pt, BILATERAL SHOULDER SURGERY , steel alcides in leg from fracture, bilat shoulders Past Anesthesia/Blood Transfusion Reactions: No Reported Reaction Type of Cardiac Device: Permanent Pacemaker, AICD Device Placement Date:: Past Psychological History: No Psychological Hx Reported Smoking Status: Former smoker Past Alcohol Use History: Occasional Past Drug Use History: None Reported - Past Family History Mother History Unknown: Yes Father Family Medical History: Myocardial Infarction (AL) Additional Family Medical History / Comment(s): Father of a AL at the age of 56yrs. Brother(s) Family Medical History: Cancer General Exam Limitations: no limitations General appearance: alert, in no apparent distress Head exam: Present: atraumatic Eye exam: Present: normal appearance, PERRL ENT exam: Present: normal oropharynx Neck exam: Present: normal inspection Respiratory exam: Present: wheezes, decreased breath sounds. Absent: respiratory distress Cardiovascular Exam: Present: regular rate, normal rhythm GI/Abdominal exam: Present: soft. Absent: tenderness Extremities exam: Present: normal inspection, pedal edema (+1). Absent: calf tenderness Neurological exam: Present: alert Psychiatric exam: Present: normal affect, normal mood Skin exam: Present: normal color Course Vital Signs 12/14/17 12/14/1712/14/18 16:54 18:53 19:05 Temperature 98.1 F Pulse Rate 79 56 L 60 Respiratory 18 Rate Blood Pressure 104/63 O2 Sat by Pulse 98 Oximetry EKG Findings - EKG Comments: EKG Findings:: Paced rhythm at 65. QRS to 6. QTc 542. QTC 563. [place] indeterminate. Wide-complex QRS. Nonspecific ST-T. Medical Decision Making - Medical Decision Making Patient reevaluated and updated. Case was discussed with practitioner Russell, who will admit for Dr. An, covering for Dr. Angulo. Patient states she also sees Dr. sims - Lab Data Result diagrams: 12/14/17 17:10 12/14/17 17:10 Lab Results 12/14/17 12/14/17 12/14/17 Range/Units 17:10 17:10 17:10 WBC 9.1 (3.8-10.6) k/uL RBC 3.79 L (4.30-5.90) m/uL Hgb 11.0 L (13.0-17.5) gm/dL Hct 33.7 L (39.0-53.0) % MCV 88.9 (80.0-100.0) fL MCH 29.0 (25.0-35.0) pg MCHC 32.7 (31.0-37.0) g/dL RDW 16.6 H (11.5-15.5) % Plt Count 177 (150-450) k/uL Neutrophils % 74 % Lymphocytes % 15 % Monocytes % 6 % Eosinophils % 3 % Basophils % 1 % Neutrophils # 6.7 (1.3-7.7) k/uL Lymphocytes # 1.4 (1.0-4.8) k/uL Monocytes # 0.5 (0-1.0) k/uL Eosinophils # 0.3 (0-0.7) k/uL Basophils # 0.1 (0-0.2) k/uL Hypochromasia Slight Anisocytosis Slight PT (9.0-12.0) sec INR (<1.2) APTT (22.0-30.0) sec Sodium 138 (137-145) mmol/L Potassium 4.3 (3.5-5.1) mmol/L Chloride 97 L (98-107) mmol/L Carbon Dioxide 28 (22-30) mmol/L Anion Gap 13 mmol/L BUN 27 H (9-20) mg/dL Creatinine 0.97 (0.66-1.25) mg/dL Est GFR (CKD-EPI)AfAm >90 (>60 ml/min/1.73 sqM) Est GFR (CKD-EPI)NonAf 84 (>60 ml/min/1.73 sqM) Glucose 123 H (74-99) mg/dL Calcium 8.8 (8.4-10.2) mg/dL Total Bilirubin 2.0 H (0.2-1.3) mg/dL AST 35 (17-59) U/L ALT 38 (21-72) U/L Alkaline Phosphatase 88 (38-126) U/L Total Creatine Kinase 310 H (55-170) U/L CK-MB (CK-2) 4.8 H* (0.0-2.4) ng/mL CK-MB (CK-2) Rel Index 1.5 Troponin I 0.030 (0.000-0.034) ng/mL NT-Pro-B Natriuret Pep pg/mL Total Protein 5.9 L (6.3-8.2) g/dL Albumin 3.8 (3.5-5.0) g/dL 12/14/17 12/14/17 Range/Units 17:10 17:10 WBC (3.8-10.6) k/uL RBC (4.30-5.90) m/uL Hgb (13.0-17.5) gm/dL Hct (39.0-53.0) % MCV (80.0-100.0) fL MCH (25.0-35.0) pg MCHC (31.0-37.0) g/dL RDW (11.5-15.5) % Plt Count (150-450) k/uL Neutrophils % % Lymphocytes % % Monocytes % % Eosinophils % % Basophils % % Neutrophils # (1.3-7.7) k/uL Lymphocytes # (1.0-4.8) k/uL Monocytes # (0-1.0) k/uL Eosinophils # (0-0.7) k/uL Basophils # (0-0.2) k/uL Hypochromasia Anisocytosis PT 12.6 H (9.0-12.0) sec INR 1.3 H (<1.2) APTT 23.0 (22.0-30.0) sec Sodium (137-145) mmol/L Potassium (3.5-5.1) mmol/L Chloride (98-107) mmol/L Carbon Dioxide (22-30) mmol/L Anion Gap mmol/L BUN (9-20) mg/dL Creatinine (0.66-1.25) mg/dL Est GFR (CKD-EPI)AfAm (>60 ml/min/1.73 sqM) Est GFR (CKD-EPI)NonAf (>60 ml/min/1.73 sqM) Glucose (74-99) mg/dL Calcium (8.4-10.2) mg/dL Total Bilirubin (0.2-1.3) mg/dL AST (17-59) U/L ALT (21-72) U/L Alkaline Phosphatase (38-126) U/L Total Creatine Kinase (55-170) U/L CK-MB (CK-2) (0.0-2.4) ng/mL CK-MB (CK-2) Rel Index Troponin I (0.000-0.034) ng/mL NT-Pro-B Natriuret Pep 5350 pg/mL Total Protein (6.3-8.2) g/dL Albumin (3.5-5.0) g/dL - Radiology Data Radiology results: image reviewed (Chest x-ray shows no acute process) Disposition Clinical Impression: Acute exacerbation of chronic obstructive pulmonary disease (COPD) Disposition: ADMITTED IP TO THIS HOSP Is patient prescribed a controlled substance at d/c from ED?: No Referrals: Mary Merritt MD [Primary Care Provider] - 1-2 days Decision Time: 19:08
[2017-12-14 17:38] LABS: Anisocytosis Slight; Basophils # (A) 0.1 k/uL (0-0.2); Basophils % (A) 1 %; Eosinophils # (A) 0.3 k/uL (0-0.7); Eosinophils % (A) 3 %; HCT 33.7 % (39.0-53.0); Hypochromasia Slight; Lymphocytes # (A) 1.4 k/uL (1.0-4.8); Lymphocytes % (A) 15 %; MCHC 32.7 g/dL (31.0-37.0); MCV 88.9 fL (80.0-100.0); Mean Platelet Volume 7.8; Monocytes # (A) 0.5 k/uL (0-1.0); Monocytes % (A) 6 %; Neutrophils # (A) 6.7 k/uL (1.3-7.7); Neutrophils % (A) 74 %; Platelet Count 177 k/uL (150-450); RBC 3.79 m/uL (4.30-5.90); RDW 16.6 % (11.5-15.5); WBC 9.1 k/uL (3.8-10.6)
[2017-12-14 17:49] LABS: INR 1.3 (<1.2); Prothrombin Time 12.6 sec (9.0-12.0)
[2017-12-14 17:50] LABS: ALT 38 U/L (21-72); AST 35 U/L (17-59); Albumin 3.8 g/dL (3.5-5.0); Alkaline Phosphatase 88 U/L (38-126); Anion Gap 13 mmol/L; Blood Urea Nitrogen 27 mg/dL (9-20); Calcium 8.8 mg/dL (8.4-10.2); Carbon Dioxide 28 mmol/L (22-30); Chloride 97 mmol/L (98-107); Glucose 123 mg/dL (74-99); Potassium 4.3 mmol/L (3.5-5.1); Sodium 138 mmol/L (137-145); Total Protein 5.9 g/dL (6.3-8.2)
--- NOTE | 2017-12-14 17:51 | XR ---
EXAMINATION TYPE: XR chest 2V DATE OF EXAM: 12/14/2017 COMPARISON: 12/04/2017 HISTORY: Shortness of breath TECHNIQUE: Frontal and lateral views of the chest are obtained. FINDINGS: Scattered senescent parenchymal changes noted. Hyperinflation compatible with COPD. No evidence for infiltrate. No evidence for atelectasis. Heart size is enlarged. No evidence for overt failure. Pacer device is in place. Mediastinal structures are stable and grossly unremarkable. No evidence for hilar prominence. Degenerative changes dorsal spine. IMPRESSION: 1. No evidence for acute pulmonary disease.
[2017-12-14 18:08] LABS: Troponin I 0.03 ng/mL (0.000-0.034)
[2017-12-14 18:11] LABS: Creatine Kinase MB 4.8 ng/mL (0.0-2.4)
[2017-12-14] MEDS ORDERED: IPRATROPIUM-ALBUTEROL 3 ML NEB INHALATION STA (18:40)
[2017-12-14 20:44] VITALS: BMI 34.2
[2017-12-14] MEDS: IPRATROPIUM-ALBUTEROL 3 ML NEB INHALATION PRN (22:27)
[2017-12-14] MEDS: ACETAMINOPHEN TAB 325 MG TAB PO PRN (23:15)
[2017-12-15] MEDS: methylPREDNISolone SOD SUCCI 125 MG/2 ML VIAL IV SCH ×2 (00:12→05:27)
[2017-12-15] MEDS: ZOLPIDEM 5 MG TAB PO PRN ×2 (00:51→22:37)
[2017-12-15] MEDS: IPRATROPIUM-ALBUTEROL 3 ML NEB INHALATION SCH ×4 (07:29→18:49)
[2017-12-15 07:54] LABS: Glucose,Whole Blood 260 mg/dL (75-99)
[2017-12-15] MEDS: DOXYCYCLINE MONOHYDRATE 100 MG CAPSULE PO SCH ×2 (09:39→20:32)
[2017-12-15] MEDS: ASPIRIN 81 MG PO SCH (09:39)
[2017-12-15] MEDS: ATORVASTATIN 20 MG TAB PO SCH (09:39)
[2017-12-15] MEDS: FUROSEMIDE 20 MG TAB PO SCH ×2 (09:39→20:32)
[2017-12-15] MEDS: LISINOPRIL 2.5 MG TAB PO SCH (09:40)
[2017-12-15] MEDS: METOPROLOL SUCCINATE (ER) 100 MG TAB.ER.24H PO SCH (09:40)
[2017-12-15] MEDS: SPIRONOLACTONE 25 MG TAB PO SCH (09:40)
[2017-12-15] MEDS: metFORMIN 500 MG TAB PO SCH ×2 (09:40→17:40)
--- NOTE | 2017-12-15 11:13 | P.HPIM ---
History of Present Illness 62-year-old came in with compensative shortness of breath has been going on for 2 days cough unable to bring up anything patient does have history of COPD does use oxygen at nighttime patient is still quite a bit short of breath was on 4 L of oxygen and admission. Patient chest x-ray did not show any pneumonic process. Patient does have history of metastatic failure ejection fraction of around 20-25%. Patient is diabetic as well. Patient the IV steroid dosing will be decreased. Patient was started on doxycycline. Review of Systems REVIEW OF SYSTEMS: CONSTITUTIONAL: No fever, no malaise, no fatigue. HEENT: No recent visual problems or hearing problems. Denied any sore throat. CARDIOVASCULAR: No chest pain, orthopnea, PND, no palpitations, no syncope. PULMONARY: no hemoptysis. GASTROINTESTINAL: No diarrhea, no nausea, no vomiting, no abdominal pain. Normoactive bowel sounds. NEUROLOGICAL: No headaches, no weakness, no numbness. HEMATOLOGICAL: Denies any bleeding or petechiae. GENITOURINARY: Denies any burning micturition, frequency, or urgency. MUSCULOSKELETAL/RHEUMATOLOGICAL: Denies any joint pain, swelling, or any muscle pain. ENDOCRINE: Denies any polyuria or polydipsia. The rest of the 14-point review of systems is negative. Past Medical History Past Medical History: Coronary Artery Disease (CAD), Chest Pain / Angina, Heart Failure, COPD, Diabetes Mellitus, Hyperlipidemia, Myocardial Infarction ([place]), Osteoarthritis (OA) Additional Past Medical History / Comment(s): Coronary artery disease with a previous bypass surgery, ischemic cardiomyopathy with ejection fraction of less than 20%, COPD, obstructive sleep apnea with an AHI of 24 currently on auto CPAP unit, obesity, hypertension, AICD placement for ischemic cardiomyopathy, Cardiomyopathy, osteoarthritis, diabetes mellitus, hyperlipidemia, hypertension. Last Myocardial Infarction Date:: UNSURE History of Any Multi-Drug Resistant Organisms: None Reported Past Surgical History: AICD, Coronary Bypass/CABG, Heart Catheterization, Orthopedic Surgery Additional Past Surgical History / Comment(s): Pacemaker and AICD- 10/2013, CABG 1 vessel many yrs ago per pt, BILATERAL SHOULDER SURGERY , steel alcides in leg from fracture, bilat shoulders Past Anesthesia/Blood Transfusion Reactions: No Reported Reaction Type of Cardiac Device: Permanent Pacemaker, AICD Device Placement Date:: Past Psychological History: No Psychological Hx Reported Additional Psychological History / Comment(s): Pt resides with his spouse. He has a walker at home but does not need to use it. He drives. He has a nebulizer. Smoking Status: Former smoker Past Alcohol Use History: Occasional Past Drug Use History: None Reported - Past Family History Mother History Unknown: Yes Father Family Medical History: Myocardial Infarction ([place]) Additional Family Medical History / Comment(s): Father of a [place] at the age of 56yrs. Brother(s) Family Medical History: Cancer Medications and Allergies Home Medications Medication Instructions Recorded Confirmed Type Atorvastatin [Lipitor] 20 mg PO DAILY 05/18/16 12/14/17 History metFORMIN HCL [Glucophage] 500 mg PO BID 02/13/17 12/14/17 History Albuterol Inhaler [Ventolin Hfa 2 puff INHALATION RT-Q4H PRN 05/28/17 12/14/17 History Inhaler] Metoprolol Succinate [Toprol XL] 100 mg PO DAILY 05/28/17 12/14/17 History Aspirin [Adult Low Dose Aspirin EC] 81 mg PO DAILY 09/11/17 12/14/17 History Spironolactone [Aldactone] 25 mg PO DAILY 09/11/17 12/14/17 History Lisinopril [Zestril] 2.5 mg PO DAILY #30 tab 09/16/17 12/14/17 Rx Furosemide [Lasix] 60 mg PO BID 12/14/17 12/14/17 History Allergies Allergy/AdvReac Type Severity Reaction Status Date / Time Latex, Natural Rubber Allergy Rash/Hives Verified 12/14/17 17:18 levofloxacin [From Levaquin] Allergy Rash/Hives Verified 12/14/17 17:18 mold Allergy Rash/Hives Verified 12/14/17 17:18 prednisone Allergy Rash/Hives Verified 12/14/17 17:18 STEROIDS Allergy Rash/Hives Uncoded 12/14/17 22:21 Physical Exam Vitals: Vital Signs Temp Pulse Pulse Pulse Resp BP BP 12/15/17 07:39 68 12/15/17 07:31 64 12/15/17 07:25 97.3 F L 66 22 129/82 12/15/17 00:00 18 12/14/17 22:37 62 12/14/17 22:27 64 12/14/17 22:19 97.4 F L 72 18 126/70 12/14/17 20:21 97.5 F L 78 22 141/95 12/14/17 20:03 97.7 F 12/14/17 19:49 60 22 114/76 12/14/17 19:15 66 18 114/54 12/14/17 19:05 60 12/14/17 18:53 56 L 12/14/17 16:54 98.1 F 79 18 104/63 Pulse Ox 12/15/17 07:39 12/15/17 07:31 98 12/15/17 07:25 100 12/15/17 00:00 12/14/17 22:37 12/14/17 22:27 98 12/14/17 22:19 96 12/14/17 20:21 96 12/14/17 20:03 12/14/17 19:49 99 12/14/17 19:15 99 12/14/17 19:05 12/14/17 18:53 12/14/17 16:54 98 Intake and Output 12/14/17 12/15/17 12/15/17 22:59 06:59 14:59 Intake Total 480 Balance 480 Intake: Oral 480 Other: Voiding Method Toilet Toilet Urinal Urinal # Voids 2 2 # Bowel Movements 1 Weight 114.5 kg PHYSICAL EXAMINATION: GENERAL: The patient is alert and oriented x3, not in any acute distress. Well developed, well nourished. HEENT: Pupils are round and equally reacting to light. EOMI. No scleral icterus. No conjunctival pallor. Normocephalic, atraumatic. No pharyngeal erythema. No thyromegaly. CARDIOVASCULAR: S1 and S2 present. No murmurs, rubs, or gallops. No JVD PULMONARY: Significantly limited air entry into bilateral lung rene significant expiratory wheezing was appreciated ABDOMEN: Soft, nontender, nondistended, normoactive bowel sounds. No palpable organomegaly. MUSCULOSKELETAL: No joint swelling or deformity. EXTREMITIES: No cyanosis, clubbing, or pedal edema. NEUROLOGICAL: Gross neurological examination did not reveal any focal deficits. SKIN: No rashes. Results CBC & Chem 7: 12/14/17 17:10 12/14/17 17:10 Labs: Abnormal Lab Results - Last 24 Hours (Table) 12/14/17 12/14/17 12/14/17 Range/Units 17:10 17:10 17:10 RBC 3.79 L (4.30-5.90) m/uL Hgb 11.0 L (13.0-17.5) gm/dL Hct 33.7 L (39.0-53.0) % RDW 16.6 H (11.5-15.5) % PT (9.0-12.0) sec INR (<1.2) Chloride 97 L (98-107) mmol/L BUN 27 H (9-20) mg/dL Glucose 123 H (74-99) mg/dL POC Glucose (mg/dL) (75-99) mg/dL Total Bilirubin 2.0 H (0.2-1.3) mg/dL Total Creatine Kinase 310 H (55-170) U/L CK-MB (CK-2) 4.8 H* (0.0-2.4) ng/mL Total Protein 5.9 L (6.3-8.2) g/dL 12/14/17 12/15/17 Range/Units 17:10 07:50 RBC (4.30-5.90) m/uL Hgb (13.0-17.5) gm/dL Hct (39.0-53.0) % RDW (11.5-15.5) % PT 12.6 H (9.0-12.0) sec INR 1.3 H (<1.2) Chloride (98-107) mmol/L BUN (9-20) mg/dL Glucose (74-99) mg/dL POC Glucose (mg/dL) 260 H (75-99) mg/dL Total Bilirubin (0.2-1.3) mg/dL Total Creatine Kinase (55-170) U/L CK-MB (CK-2) (0.0-2.4) ng/mL Total Protein (6.3-8.2) g/dL Thrombosis Risk Factor Assmnt - Choose All That Apply Any of the Below Risk Factors Present?: Yes Each Factor Represents 1 point: Abnormal pulmonary function (COPD) Each Risk Factor Represents 2 Points: Age 61-74 years Other congenital or acquired thrombophilia - If yes, enter type in comment: No Thrombosis Risk Factor Assessment Total Risk Factor Score: 3 Thrombosis Risk Factor Assessment Level: Moderate Risk Assessment and Plan Plan: Acute on chronic hypercapnic respiratory failure: Secondary to COPD exacerbation patient has systolic strides antibiotics as mentioned above patient presently doesn't smoke. -Congestive heart failure chronic systolic dysfunction ejection fraction of 20- 25% patient is fairly euvolemic at this point of time patient will be resumed on his home medications of Lasix I'll direct on. Patient is not on NANNETTE inhibitor unsure the reason for that we'll check with patient regarding this before I start him on NANNETTE inhibitor -Coronary artery disease next and heparin type 2 diabetes mellitus blood sugars are expected to go up patient -Hyperlipidemia
--- NOTE | 2017-12-15 11:17 | P.CNPUL ---
History of Present Illness Consult date: 12/15/17 Requesting physician: Rishi An Reason for consult: dyspnea, COPD Chief complaint: Shortness of breath History of present illness: This is a very pleasant 62-year-old gentleman who follows with Dr. Merritt as his primary care physician. He is a medical history of obesity, diabetes mellitus, hypertension, hyperlipidemia, coronary artery disease with previous coronary artery bypass grafting, ischemic cardiomyopathy with ejection fraction less than 20% status post AICD placement. He also has a significant 45 year smoking history and chronic obstructive pulmonary disease with an FEV1 value of 40%. He also has obstructive sleep apnea with an AHI of 24 and has been noncompliant with the CPAP in the past. He also had nocturnal dyspnea and desaturations and does utilize home oxygen. He follows with Dr. Iraheta in our office for the same. He presented here yesterday with complaints of increasing shortness of breath, cough and congestion over the previous 2 days. He did increase his home nebulized treatments without much success. He was brought in by EMS. He received several breathing treatments and eventually improved. He is seen today in consultation on the regular medical floor. He is awake and alert in no acute distress. He is breathing easier today as compared to yesterday. Still dyspneic with minimal exertion. Chest x-ray revealed no acute pulmonary process. No leukocytosis. BNP 5350. He has been afebrile. Hemodynamically stable. Maintaining good O2 saturations up to 100% on 2 L/m per nasal cannula. Review of Systems Constitutional: Reports malaise, Reports weakness Eyes: denies blurred vision, denies decreased vision Ears: deny: decreased hearing Ears, nose, mouth and throat: Denies headache, Denies sore throat Cardiovascular: Reports dyspnea on exertion, Reports edema, Reports orthopnea, Reports shortness of breath Respiratory: Reports cough, Reports dyspnea, Reports home oxygen, Reports sleep apnea, Reports wheezing Gastrointestinal: Denies abdominal pain, Denies diarrhea, Denies nausea, Denies vomiting Genitourinary: Reports as per HPI Musculoskeletal: Reports morning stiffness Integumentary: Denies pruritus, Denies rash Neurological: Denies numbness, Denies weakness Psychiatric: Reports anxiety Endocrine: Reports as per HPI, Reports fatigue Hematologic/Lymphatic: Reports as per HPI Allergic/Immunologic: Reports as per HPI Past Medical History Past Medical History: Coronary Artery Disease (CAD), Chest Pain / Angina, Heart Failure, COPD, Diabetes Mellitus, Hyperlipidemia, Myocardial Infarction ([place]), Osteoarthritis ([place]) Additional Past Medical History / Comment(s): Coronary artery disease with a previous bypass surgery, ischemic cardiomyopathy with ejection fraction of less than 20%, COPD, obstructive sleep apnea with an AHI of 24 currently on auto CPAP unit, obesity, hypertension, AICD placement for ischemic cardiomyopathy, Cardiomyopathy, osteoarthritis, diabetes mellitus, hyperlipidemia, hypertension. Last Myocardial Infarction Date:: UNSURE History of Any Multi-Drug Resistant Organisms: None Reported Past Surgical History: AICD, Coronary Bypass/CABG, Heart Catheterization, Orthopedic Surgery Additional Past Surgical History / Comment(s): Pacemaker and AICD- 10/2013, CABG 1 vessel many yrs ago per pt, BILATERAL SHOULDER SURGERY , steel alcides in leg from fracture, bilat shoulders Past Anesthesia/Blood Transfusion Reactions: No Reported Reaction Type of Cardiac Device: Permanent Pacemaker, AICD Device Placement Date:: Past Psychological History: No Psychological Hx Reported Additional Psychological History / Comment(s): Pt resides with his spouse. He has a walker at home but does not need to use it. He drives. He has a nebulizer. Smoking Status: Former smoker Past Alcohol Use History: Occasional Past Drug Use History: None Reported - Past Family History Mother History Unknown: Yes Father Family Medical History: Myocardial Infarction ([place]) Additional Family Medical History / Comment(s): Father of a [place] at the age of 56yrs. Brother(s) Family Medical History: Cancer Medications and Allergies Home Medications Medication Instructions Recorded Confirmed Type Atorvastatin [Lipitor] 20 mg PO DAILY 05/18/16 12/14/17 History metFORMIN HCL [Glucophage] 500 mg PO BID 02/13/17 12/14/17 History Albuterol Inhaler [Ventolin Hfa 2 puff INHALATION RT-Q4H PRN 05/28/17 12/14/17 History Inhaler] Metoprolol Succinate [Toprol XL] 100 mg PO DAILY 05/28/17 12/14/17 History Aspirin [Adult Low Dose Aspirin EC] 81 mg PO DAILY 09/11/17 12/14/17 History Spironolactone [Aldactone] 25 mg PO DAILY 09/11/17 12/14/17 History Lisinopril [Zestril] 2.5 mg PO DAILY #30 tab 09/16/17 12/14/17 Rx Furosemide [Lasix] 60 mg PO BID 12/14/17 12/14/17 History Allergies Allergy/AdvReac Type Severity Reaction Status Date / Time Latex, Natural Rubber Allergy Rash/Hives Verified 12/14/17 17:18 levofloxacin [From Levaquin] Allergy Rash/Hives Verified 12/14/17 17:18 mold Allergy Rash/Hives Verified 12/14/17 17:18 prednisone Allergy Rash/Hives Verified 12/14/17 17:18 STEROIDS Allergy Rash/Hives Uncoded 12/14/17 22:21 Physical Exam Vitals: Vital Signs Temp Pulse Pulse Pulse Resp BP BP 12/15/17 07:39 68 12/15/17 07:31 64 12/15/17 07:25 97.3 F L 66 22 129/82 12/15/17 00:00 18 12/14/17 22:37 62 12/14/17 22:27 64 12/14/17 22:19 97.4 F L 72 18 126/70 12/14/17 20:21 97.5 F L 78 22 141/95 12/14/17 20:03 97.7 F 12/14/17 19:49 60 22 114/76 12/14/17 19:15 66 18 114/54 12/14/17 19:05 60 12/14/17 18:53 56 L 12/14/17 16:54 98.1 F 79 18 104/63 Pulse Ox 12/15/17 07:39 12/15/17 07:31 98 12/15/17 07:25 100 12/15/17 00:00 12/14/17 22:37 12/14/17 22:27 98 12/14/17 22:19 96 12/14/17 20:21 96 12/14/17 20:03 12/14/17 19:49 99 12/14/17 19:15 99 12/14/17 19:05 12/14/17 18:53 12/14/17 16:54 98 Intake and Output 12/14/17 12/15/17 12/15/17 22:59 06:59 14:59 Intake Total 480 Balance 480 Intake: Oral 480 Other: Voiding Method Toilet Toilet Urinal Urinal # Voids 2 2 # Bowel Movements 1 Weight 114.5 kg - Constitutional General appearance: obese - EENT Eyes: PERRLA ENT: hearing grossly normal Ears: bilateral: normal - Neck Neck: normal ROM Carotids: bilateral: upstroke normal Thyroid: bilateral: normal size - Respiratory Respiratory: bilateral: diminished, wheezing - Cardiovascular Rhythm: regular Heart sounds: normal: S1, S2 Abnormal Heart Sounds: systolic murmur - Gastrointestinal General gastrointestinal: no organomegaly, soft, no tenderness - Neurologic Neurologic: CNII-XII intact - Musculoskeletal Musculoskeletal: generalized weakness - Psychiatric Psychiatric: A&O x's 3 Results - Laboratory Findings CBC and BMP: 12/14/17 17:10 12/14/17 17:10 PT/INR, D-dimer PT 12.6 sec (9.0-12.0) H 12/14/17 17:10 INR 1.3 (<1.2) H 12/14/17 17:10 Abnormal lab findings: Abnormal Labs 12/14/17 12/14/17 12/14/17 17:10 17:10 17:10 RBC 3.79 L Hgb 11.0 L Hct 33.7 L RDW 16.6 H PT INR Chloride 97 L BUN 27 H Glucose 123 H POC Glucose (mg/dL) Total Bilirubin 2.0 H Total Creatine Kinase 310 H CK-MB (CK-2) 4.8 H* Total Protein 5.9 L 12/14/17 12/15/17 17:10 07:50 RBC Hgb Hct RDW PT 12.6 H INR 1.3 H Chloride BUN Glucose POC Glucose (mg/dL) 260 H Total Bilirubin Total Creatine Kinase CK-MB (CK-2) Total Protein - Diagnostic Findings Chest x-ray: image reviewed Assessment and Plan Assessment: Impression: #1 Acute on chronic hypoxic respiratory failure secondary to acute exacerbation of systolic congestive heart failure. #2 Acute on chronic hypoxic respiratory failure secondary to an acute exacerbation of chronic obstructive pulmonary disease. #3 Chronic tobacco dependence. #4 Obstructive sleep apnea with an AHI of 24 noncompliant with CPAP in the past. #5 Coronary artery disease with previous coronary artery bypass grafting. #6 Ischemic cardiomyopathy with ejection fraction 20% status post AICD placement. #7 Obesity. #8 Diabetes mellitus. #9 Hypertension. #10 Hyperlipidemia. #12 Osteoarthritis. Plan: The patient was seen and evaluated by Dr. Tompkins. Chest x-ray and labs were reviewed. We'll go ahead and treat him for his COPD exacerbation. Continue with bronchodilators, IV Solu-Medrol, empiric antibiotics. Continue diuretics. Add Lovenox for DVT prophylaxis. Pepcid for GI prophylaxis. Increase his activity as tolerated. We'll continue to follow and make further recommendations based on his clinical status. I, the cosigning physician, performed a history & physical examination of the patient. Lungs sounds with bilateral end expiratory wheeze. Diminished. Maintaining good O2 saturations in the 90s on 2 L/m per nasal cannula. I discussed the assessment and plan of care with my nurse practitioner, Narcisa Graham. I attest to the above note as dictated by her. Time with Patient: Greater than 30
[2017-12-15 11:54] LABS: Glucose,Whole Blood 327 mg/dL (75-99)
[2017-12-15 12:22] LABS: Hemoglobin A1C 7.3 % (4.0-6.0)
[2017-12-15] MEDS ORDERED: INSULIN ASPART 100 UNIT/ML 1 ML 10 ML VIAL SQ ONE (12:25)
[2017-12-15] MEDS: ENOXAPARIN 40 MG/0.4 ML SYRINGE SQ SCH (12:43)
[2017-12-15] MEDS: INSULIN ASPART 100 UNIT/ML 1 ML 10 ML VIAL SQ SCH ×3 (12:43→20:33)
[2017-12-15 17:26] LABS: Glucose,Whole Blood 241 mg/dL (75-99)
[2017-12-15] MEDS: methylPREDNISolone SOD SUCCI 40 MG/ML 1 ML VIAL IV SCH ×2 (17:40→23:49)
[2017-12-15 20:24] LABS: Glucose,Whole Blood 180 mg/dL (75-99)
[2017-12-15] MEDS: INSULIN DETEMIR 100 UNIT/ML 10 ML VIAL SQ SCH (20:33)
[2017-12-15] MEDS: HYDROcodone/APAP 5-325MG 1 EACH TAB PO PRN (22:39)
[2017-12-16] MEDS: IPRATROPIUM-ALBUTEROL 3 ML NEB INHALATION SCH ×4 (06:10→19:46)
[2017-12-16 07:20] LABS: Glucose,Whole Blood 175 mg/dL (75-99)
[2017-12-16] MEDS: METOPROLOL SUCCINATE (ER) 100 MG TAB.ER.24H PO SCH (08:00)
[2017-12-16] MEDS: LISINOPRIL 2.5 MG TAB PO SCH (08:00)
[2017-12-16] MEDS: ENOXAPARIN 40 MG/0.4 ML SYRINGE SQ SCH (08:00)
[2017-12-16] MEDS: SPIRONOLACTONE 25 MG TAB PO SCH (08:00)
[2017-12-16] MEDS: ASPIRIN 81 MG PO SCH (08:00)
[2017-12-16] MEDS: metFORMIN 500 MG TAB PO SCH ×2 (08:01→17:41)
[2017-12-16] MEDS: FUROSEMIDE 20 MG TAB PO SCH ×2 (08:01→21:21)
[2017-12-16] MEDS: methylPREDNISolone SOD SUCCI 40 MG/ML 1 ML VIAL IV SCH ×3 (08:01→23:40)
[2017-12-16] MEDS: ATORVASTATIN 20 MG TAB PO SCH (08:01)
[2017-12-16] MEDS: INSULIN ASPART 100 UNIT/ML 1 ML 10 ML VIAL SQ SCH ×4 (08:01→21:21)
[2017-12-16] MEDS: DOXYCYCLINE MONOHYDRATE 100 MG CAPSULE PO SCH ×2 (08:01→21:20)
[2017-12-16] MEDS: FAMOTIDINE 20 MG TAB PO SCH (08:01)
--- NOTE | 2017-12-16 10:37 | P.PN ---
Subjective Patient was admitted for COPD exacerbation and the agent is still wheezing significantly patient in 3 L of oxygen. Although his he says his respiratory status did improve significantly compared to yesterday. Constitutional: Denied any fatigue denied any fever. Cardio vascular: denied any chest pain, palpitations Gastrointestinal denied any nausea vomiting Pulmonary: As mentioned in HPI Neurologic denied any new focal deficits Objective - Vital Signs Vital signs: Vital Signs Temp 97.5 F L 12/16/17 07:15 Pulse 76 12/16/17 07:15 Resp 22 12/16/17 07:15 BP 128/76 12/16/17 07:15 Pulse Ox 98 12/16/17 07:15 Intake & Output 12/15/17 12/16/17 12/16/17 18:59 06:59 18:59 Intake Total 960 Output Total 400 Balance 560 Weight 114.5 kg Intake: Oral 960 Output: Urine 400 Other: Voiding Method Toilet Toilet Toilet Urinal Urinal Urinal # Voids 250 2 - Exam PHYSICAL EXAMINATION: GENERAL: The patient is alert and oriented x3, not in any acute distress. Well developed, well nourished. HEENT: Pupils are round and equally reacting to light. EOMI. No scleral icterus. No conjunctival pallor. Normocephalic, atraumatic. No pharyngeal erythema. No thyromegaly. CARDIOVASCULAR: S1 and S2 present. No murmurs, rubs, or gallops. No JVD PULMONARY: Significantly limited air entry into bilateral lung rene significant expiratory wheezing was appreciated ABDOMEN: Soft, nontender, nondistended, normoactive bowel sounds. No palpable organomegaly. MUSCULOSKELETAL: No joint swelling or deformity. EXTREMITIES: No cyanosis, clubbing, or pedal edema. NEUROLOGICAL: Gross neurological examination did not reveal any focal deficits. SKIN: No rashes. - Labs CBC & Chem 7: 12/14/17 17:10 12/14/17 17:10 Labs: Abnormal Lab Results - Last 24 Hours (Table) 12/14/17 12/15/17 12/15/17 Range/Units 17:10 11:42 17:24 POC Glucose (mg/dL) 327 H 241 H (75-99) mg/dL Hemoglobin A1c 7.3 H (4.0-6.0) % 12/15/17 12/16/17 Range/Units 20:16 07:19 POC Glucose (mg/dL) 180 H 175 H (75-99) mg/dL Hemoglobin A1c (4.0-6.0) % Assessment and Plan Plan: Acute on chronic hypercapnic respiratory failure: Secondary to COPD exacerbation patient has systolic strides antibiotics as mentioned above patient presently doesn't smoke. -Congestive heart failure chronic systolic dysfunction ejection fraction of 20- 25% patient is fairly euvolemic at this point of time patient ease on his home medications of Lasix, patient it was started on NANNETTE inhibitor -Coronary artery disease type 2 diabetes mellitus blood sugars are uncontrolled and the now improved with Lantus 15 units patient may not need Lantus upon discharge -Hyperlipidemia
[2017-12-16 11:45] LABS: Glucose,Whole Blood 184 mg/dL (75-99)
--- NOTE | 2017-12-16 12:05 | P.PN ---
Subjective Progress Note Date: 12/16/17 Principal diagnosis: Acute on chronic hypoxic respiratory failure secondary to acute exacerbation of systolic congestive heart failure and COPD This is a very pleasant 62-year-old gentleman who follows with Dr. Merritt as his primary care physician. He is a medical history of obesity, diabetes mellitus, hypertension, hyperlipidemia, coronary artery disease with previous coronary artery bypass grafting, ischemic cardiomyopathy with ejection fraction less than 20% status post AICD placement. He also has a significant 45 year smoking history and chronic obstructive pulmonary disease with an FEV1 value of 40%. He also has obstructive sleep apnea with an AHI of 24 and has been noncompliant with the CPAP in the past. He also had nocturnal dyspnea and desaturations and does utilize home oxygen. He follows with Dr. Iraheta in our office for the same. He presented here yesterday with complaints of increasing shortness of breath, cough and congestion over the previous 2 days. He did increase his home nebulized treatments without much success. He was brought in by EMS. He received several breathing treatments and eventually improved. He is seen today in consultation on the regular medical floor. He is awake and alert in no acute distress. He is breathing easier today as compared to yesterday. Still dyspneic with minimal exertion. Chest x-ray revealed no acute pulmonary process. No leukocytosis. BNP 5350. He has been afebrile. Hemodynamically stable. Maintaining good O2 saturations up to 100% on 2 L/m per nasal cannula. On 12/16/2017 patient seen in follow-up. He is doing better today, although still remains dyspneic with exertion. Lung sounds reveal scattered wheezes, patient still has a bronchospastic cough, but this has improved from yesterday. Remains on 2 L per nasal cannula with O2 sat 90%. Afebrile, sinus stable. Denies any chest pain, patient remains on diuretics, and there is slight improvement in the appearance of his peripheral edema. Objective - Vital Signs Vital signs: Vital Signs Temp 97.5 F L 12/16/17 07:15 Pulse 75 12/16/17 11:21 Resp 22 12/16/17 07:15 BP 128/76 12/16/17 07:15 Pulse Ox 98 12/16/17 07:15 Intake & Output 12/15/17 12/16/17 12/16/17 18:59 06:59 18:59 Intake Total 960 Output Total 400 Balance 560 Weight 114.5 kg Intake: Oral 960 Output: Urine 400 Other: Voiding Method Toilet Toilet Toilet Urinal Urinal Urinal # Voids 250 2 - Exam - Constitutional General appearance: obese - EENT Eyes: PERRLA ENT: hearing grossly normal Ears: bilateral: normal - Neck Neck: normal ROM Carotids: bilateral: upstroke normal Thyroid: bilateral: normal size - Respiratory Respiratory: bilateral: diminished, wheezing - Cardiovascular Rhythm: regular Heart sounds: normal: S1, S2 Abnormal Heart Sounds: systolic murmur - Gastrointestinal General gastrointestinal: no organomegaly, soft, no tenderness - Neurologic Neurologic: CNII-XII intact - Musculoskeletal Musculoskeletal: generalized weakness - Psychiatric Psychiatric: A&O x's 3 - Labs CBC & Chem 7: 12/14/17 17:10 12/14/17 17:10 Labs: Abnormal Lab Results - Last 24 Hours (Table) 12/14/17 12/15/17 12/15/17 Range/Units 17:10 17:24 20:16 POC Glucose (mg/dL) 241 H 180 H (75-99) mg/dL Hemoglobin A1c 7.3 H (4.0-6.0) % 12/16/17 12/16/17 Range/Units 07:19 11:42 POC Glucose (mg/dL) 175 H 184 H (75-99) mg/dL Hemoglobin A1c (4.0-6.0) % Assessment and Plan Plan: Assessment: #1 Acute on chronic hypoxic respiratory failure secondary to acute exacerbation of systolic congestive heart failure. #2 Acute on chronic hypoxic respiratory failure secondary to an acute exacerbation of chronic obstructive pulmonary disease. #3 Chronic tobacco dependence. #4 Obstructive sleep apnea with an AHI of 24 noncompliant with CPAP in the past. #5 Coronary artery disease with previous coronary artery bypass grafting. #6 Ischemic cardiomyopathy with ejection fraction 20% status post AICD placement. #7 Obesity. #8 Diabetes mellitus. #9 Hypertension. #10 Hyperlipidemia. #12 Osteoarthritis. Plan: Patient is improving, but remains very dyspneic and wheezy with any exertion. Continue current medical treatment, continue IV steroids, oral diuretics, nebulized bronchodilators. Anticipate further improvement in next 24 hours, increase activity as tolerated. I performed a history & physical examination of the patient and discussed their management with my nurse practitioner, Agnes Mckeon. I reviewed the nurse practitioner's note and agree with the documented findings and plan of care. Lung sounds are positive for diffuse wheezes throughout the lung rene. The findings and the impression was discussed with the patient. I attest to the documentation by the nurse practitioner. Time with Patient: Less than 30
[2017-12-16] MEDS: ACETAMINOPHEN TAB 325 MG TAB PO PRN (15:00)
[2017-12-16 17:34] LABS: Glucose,Whole Blood 179 mg/dL (75-99)
[2017-12-16 20:36] LABS: Glucose,Whole Blood 199 mg/dL (75-99)
[2017-12-16] MEDS: HYDROcodone/APAP 5-325MG 1 EACH TAB PO PRN (21:19)
[2017-12-16] MEDS: INSULIN DETEMIR 100 UNIT/ML 10 ML VIAL SQ SCH (21:21)
[2017-12-17] MEDS: IPRATROPIUM-ALBUTEROL 3 ML NEB INHALATION PRN (02:27)
[2017-12-17 06:54] LABS: Glucose,Whole Blood 249 mg/dL (75-99)
[2017-12-17] MEDS: IPRATROPIUM-ALBUTEROL 3 ML NEB INHALATION SCH ×2 (07:17→11:18)
[2017-12-17] MEDS: INSULIN ASPART 100 UNIT/ML 1 ML 10 ML VIAL SQ SCH (07:35)
[2017-12-17] MEDS: methylPREDNISolone SOD SUCCI 40 MG/ML 1 ML VIAL IV SCH (07:36)
[2017-12-17] MEDS: metFORMIN 500 MG TAB PO SCH ×2 (07:36→07:39)
[2017-12-17] MEDS: ENOXAPARIN 40 MG/0.4 ML SYRINGE SQ SCH (07:38)
[2017-12-17] MEDS: FUROSEMIDE 20 MG TAB PO SCH (07:39)
[2017-12-17] MEDS: DOXYCYCLINE MONOHYDRATE 100 MG CAPSULE PO SCH (07:39)
[2017-12-17] MEDS: SPIRONOLACTONE 25 MG TAB PO SCH (07:39)
[2017-12-17] MEDS: LISINOPRIL 2.5 MG TAB PO SCH (07:39)
[2017-12-17] MEDS: FAMOTIDINE 20 MG TAB PO SCH (07:39)
[2017-12-17] MEDS: ATORVASTATIN 20 MG TAB PO SCH (07:39)
[2017-12-17] MEDS: METOPROLOL SUCCINATE (ER) 100 MG TAB.ER.24H PO SCH (07:39)
[2017-12-17] MEDS: ASPIRIN 81 MG PO SCH (07:39)
[2017-12-17 08:19] VITALS: BP 117/68; PULSE 67; RESP 16; TEMP 97.8
[2017-12-17] MEDS ORDERED: predniSONE 10 MG TAB PO SCH (10:45)
--- NOTE | 2017-12-17 14:31 | P.PN ---
Subjective Progress Note Date: 12/17/17 Principal diagnosis: Acute on chronic hypoxic respiratory failure secondary to acute exacerbation of systolic congestive heart failure and COPD This is a very pleasant 62-year-old gentleman who follows with Dr. Merritt as his primary care physician. He is a medical history of obesity, diabetes mellitus, hypertension, hyperlipidemia, coronary artery disease with previous coronary artery bypass grafting, ischemic cardiomyopathy with ejection fraction less than 20% status post AICD placement. He also has a significant 45 year smoking history and chronic obstructive pulmonary disease with an FEV1 value of 40%. He also has obstructive sleep apnea with an AHI of 24 and has been noncompliant with the CPAP in the past. He also had nocturnal dyspnea and desaturations and does utilize home oxygen. He follows with Dr. Iraheta in our office for the same. He presented here yesterday with complaints of increasing shortness of breath, cough and congestion over the previous 2 days. He did increase his home nebulized treatments without much success. He was brought in by EMS. He received several breathing treatments and eventually improved. He is seen today in consultation on the regular medical floor. He is awake and alert in no acute distress. He is breathing easier today as compared to yesterday. Still dyspneic with minimal exertion. Chest x-ray revealed no acute pulmonary process. No leukocytosis. BNP 5350. He has been afebrile. Hemodynamically stable. Maintaining good O2 saturations up to 100% on 2 L/m per nasal cannula. On 12/16/2017 patient seen in follow-up. He is doing better today, although still remains dyspneic with exertion. Lung sounds reveal scattered wheezes, patient still has a bronchospastic cough, but this has improved from yesterday. Remains on 2 L per nasal cannula with O2 sat 90%. Afebrile, sinus stable. Denies any chest pain, patient remains on diuretics, and there is slight improvement in the appearance of his peripheral edema. On 12/17/2017 patient seen in follow-up. Denies any distress, denies any worsening dyspnea. Lung sounds are negative for any wheezes, some scattered rales at bilateral posterior bases, no rhonchi. No chest congestion, no chest pain. Room air pulse ox was 94%, patient is afebrile. Patient has been ambulating, and tolerating activity fairly well. No new labs or chest x-rays, adequate patient has significantly improved, and responded well to systemic steroids, oral diuretics, nebulized bronchodilators and oral antibiotics. Objective - Vital Signs Vital signs: Vital Signs Temp 97.8 F 12/17/17 07:34 Pulse 67 12/17/17 07:34 Resp 16 12/17/17 07:34 BP 117/68 12/17/17 07:34 Pulse Ox 94 L 12/17/17 07:34 Intake & Output 12/16/17 12/17/17 12/17/17 18:59 06:59 18:59 Intake Total 350 Balance 350 Intake: Oral 350 Other: Voiding Method Toilet Toilet Toilet Urinal Urinal Urinal # Voids 3 1 - Exam - Constitutional General appearance: obese - EENT Eyes: PERRLA ENT: hearing grossly normal Ears: bilateral: normal - Neck Neck: normal ROM Carotids: bilateral: upstroke normal Thyroid: bilateral: normal size - Respiratory Respiratory: bilateral: diminished, with bibasilar rales - Cardiovascular Rhythm: regular Heart sounds: normal: S1, S2 Abnormal Heart Sounds: systolic murmur - Gastrointestinal General gastrointestinal: no organomegaly, soft, no tenderness - Neurologic Neurologic: CNII-XII intact - Musculoskeletal Musculoskeletal: generalized weakness - Psychiatric Psychiatric: A&O x's 3 - Labs CBC & Chem 7: 12/14/17 17:10 12/14/17 17:10 Labs: Abnormal Lab Results - Last 24 Hours (Table) 12/16/17 12/16/17 12/16/17 Range/Units 11:42 17:21 20:35 POC Glucose (mg/dL) 184 H 179 H 199 H (75-99) mg/dL 12/17/17 Range/Units 06:52 POC Glucose (mg/dL) 249 H (75-99) mg/dL Assessment and Plan Plan: Assessment: #1 Acute on chronic hypoxic respiratory failure secondary to acute exacerbation of systolic congestive heart failure, improved, and today patient is on room air with a pulse ox of 94% #2 Acute on chronic hypoxic respiratory failure secondary to an acute exacerbation of chronic obstructive pulmonary disease. #3 Chronic tobacco dependence. #4 Obstructive sleep apnea with an AHI of 24 noncompliant with CPAP in the past. #5 Coronary artery disease with previous coronary artery bypass grafting. #6 Ischemic cardiomyopathy with ejection fraction 20% status post AICD placement. #7 Obesity. #8 Diabetes mellitus. #9 Hypertension. #10 Hyperlipidemia. #12 Osteoarthritis. Plan: Patient continues to improve, no wheezing, no chest congestion. Denies any chest pain, tolerating ambulation. Room air pulse ox is 94%, no acute events overnight. Patient is stable for discharge home from pulmonary standpoint. He states he develops a rash when he's taking prednisone, is asking for another alternative for a taper steroid. Patient will be sent home on a weaning schedule of dexamethasone starting with 8 mg daily for 4 days, 4 mg days for 4 days, 2 mg for 4 days and then stop. Patient may continue on his maintenance inhalers and nebulized treatments. Follow-up with Dr. Iraheta in the office in one week I performed a history & physical examination of the patient and discussed their management with my nurse practitioner, Agnes Mckeon. I reviewed the nurse practitioner's note and agree with the documented findings and plan of care. Lung sounds are positive for diffuse wheezes throughout the lung rene. The findings and the impression was discussed with the patient. I attest to the documentation by the nurse practitioner. Time with Patient: Less than 30
== END 2017-12-17 11:30 | disposition home or self-care (01) | DRG 190 ==
LOC: EC 16:48 → 5MS5E 19:10 → OBSVTOIN 12-15 15:03
PROVIDERS: ADMIT Hospitalist; ATTEND Hospitalist
DX: J44.1 Chronic obstructive pulmonary disease with (acute) exacerbation (principal); J96.21 Acute and chronic respiratory failure with hypoxia; J96.22 Acute and chronic respiratory failure with hypercapnia; I50.23 Acute on chronic systolic (congestive) heart failure; I11.0 Hypertensive heart disease with heart failure; I25.10 Atherosclerotic heart disease of native coronary artery without angina pectoris; E11.9 Type 2 diabetes mellitus without complications; I25.5 Ischemic cardiomyopathy; G47.33 Obstructive sleep apnea (adult) (pediatric); M19.91 Primary osteoarthritis, unspecified site; I25.2 Old myocardial infarction; E78.5 Hyperlipidemia, unspecified; E66.9 Obesity, unspecified; Z68.34 Body mass index [BMI] 34.0-34.9, adult; Z71.6 Tobacco abuse counseling; Z79.82 Long term (current) use of aspirin; Z79.84 Long term (current) use of oral hypoglycemic drugs; Z79.899 Other long term (current) drug therapy; Z87.891 Personal history of nicotine dependence; Z95.1 Presence of aortocoronary bypass graft; Z95.810 Presence of automatic (implantable) cardiac defibrillator; Z91.19 Patient's noncompliance with other medical treatment and regimen; Z88.1 Allergy status to other antibiotic agents; Z91.040 Latex allergy status; Z88.8 Allergy status to other drugs, medicaments and biological substances; Z91.048 Other nonmedicinal substance allergy status; Z82.49 Family history of ischemic heart disease and other diseases of the circulatory system; Z80.9 Family history of malignant neoplasm, unspecified
CPT/HCPCS: 36415; 71046; 80053; 82550; 82553; 83036; 83880; 84484; 85025; 85610; 85730; 93005; 94640; 94760; 96374; 99285

== ENCOUNTER 2017-12-22 10:45 | Inpatient (IN) | payer MEDICARE ==
[2017-12-22] MEDS ORDERED: IPRATROPIUM-ALBUTEROL 3 ML NEB INHALATION STA (10:49)
--- NOTE | 2017-12-22 10:53 | ED ---
SOB HPI - General Stated Complaint: Edema, R flank pain Time Seen by Provider: 12/22/17 10:45 Source: patient, EMS, RN notes reviewed, old records reviewed Mode of arrival: EMS - History of Present Illness Initial Comments: This is a 62-year-old male history of COPD and CHF who apparently woke up this morning with left leg edema right flank pain and numbness to his right fourth and fifth fingertips. He is short of breath also he did have an updraft treatment as part EMS picking him up. He states it did not help very much he denies any fevers chills nausea vomiting sweats phlegm but does have a slight cough. He points right CVA area. He this is the area pain he states he was worked up recently and found not to have any kidney stones. He denies any hematuria. No other modifying factors at this time MD Complaint: shortness of breath - Related Data Home Medications Medication Instructions Recorded Confirmed Atorvastatin [Lipitor] 20 mg PO DAILY 05/18/16 12/22/17 metFORMIN HCL [Glucophage] 500 mg PO BID 02/13/17 12/22/17 Albuterol Inhaler [Ventolin Hfa 2 puff INHALATION RT-Q4H PRN 05/28/17 12/22/17 Inhaler] Metoprolol Succinate [Toprol XL] 100 mg PO DAILY 05/28/17 12/22/17 Aspirin [Adult Low Dose Aspirin EC] 81 mg PO DAILY 09/11/17 12/22/17 Spironolactone [Aldactone] 25 mg PO DAILY 09/11/17 12/22/17 Furosemide [Lasix] 60 mg PO BID 12/14/17 12/22/17 Dexamethasone [Decadron] See Taper PO DAILY 12/22/17 12/22/17 Previous Rx's Medication Instructions Recorded Lisinopril [Zestril] 2.5 mg PO DAILY #30 tab 09/16/17 Allergies Allergy/AdvReac Type Severity Reaction Status Date / Time Latex, Natural Rubber Allergy Rash/Hives Verified 12/22/17 11:49 levofloxacin [From Levaquin] Allergy Rash/Hives Verified 12/22/17 11:49 mold Allergy Rash/Hives Verified 12/22/17 11:49 prednisone Allergy Rash/Hives Verified 12/22/17 11:49 STEROIDS Allergy Rash/Hives Uncoded 12/22/17 10:51 Review of Systems ROS Statement: Those systems with pertinent positive or pertinent negative responses have been documented in the HPI. ROS Other: All systems not noted in ROS Statement are negative. Past Medical History Past Medical History: Coronary Artery Disease (CAD), Chest Pain / Angina, Heart Failure, COPD, Diabetes Mellitus, Hyperlipidemia, Myocardial Infarction ([place]), Osteoarthritis (OA) Additional Past Medical History / Comment(s): Coronary artery disease with a previous bypass surgery, ischemic cardiomyopathy with ejection fraction of less than 20%, COPD, obstructive sleep apnea with an AHI of 24 currently on auto CPAP unit, obesity, hypertension, AICD placement for ischemic cardiomyopathy, Cardiomyopathy, osteoarthritis, diabetes mellitus, hyperlipidemia, hypertension. Last Myocardial Infarction Date:: UNSURE History of Any Multi-Drug Resistant Organisms: None Reported Past Surgical History: AICD, Coronary Bypass/CABG, Heart Catheterization, Orthopedic Surgery Additional Past Surgical History / Comment(s): Pacemaker and AICD- 10/2013, CABG 1 vessel many yrs ago per pt, BILATERAL SHOULDER SURGERY , steel alcides in leg from fracture, bilat shoulders Past Anesthesia/Blood Transfusion Reactions: No Reported Reaction Type of Cardiac Device: Permanent Pacemaker, AICD Device Placement Date:: Past Psychological History: No Psychological Hx Reported Additional Psychological History / Comment(s): Pt resides with his spouse. He has a walker at home but does not need to use it. He drives. He has a nebulizer. Smoking Status: Former smoker Past Alcohol Use History: Occasional Past Drug Use History: None Reported - Past Family History Mother History Unknown: Yes Father Family Medical History: Myocardial Infarction ([place]) Additional Family Medical History / Comment(s): Father of a [place] at the age of 56yrs. Brother(s) Family Medical History: Cancer General Exam - General Exam Comments Initial Comments: This is a well-developed well-nourished awake alert oriented 3 male General appearance: alert, anxious Head exam: Present: atraumatic, normocephalic, normal inspection Eye exam: Present: normal appearance, PERRL, EOMI. Absent: scleral icterus, conjunctival injection, periorbital swelling ENT exam: Present: normal exam, mucous membranes moist Neck exam: Present: normal inspection, tenderness (Tennis palpation on the lateral neck musculature no spinous process tenderness.). Absent: meningismus, lymphadenopathy Respiratory exam: Present: wheezes, decreased breath sounds. Absent: respiratory distress, rales, rhonchi, stridor Cardiovascular Exam: Present: regular rate, normal rhythm, normal heart sounds. Absent: systolic murmur, diastolic murmur, rubs, gallop, clicks GI/Abdominal exam: Present: soft, normal bowel sounds. Absent: distended, tenderness, guarding, rebound, rigid Extremities exam: Present: full ROM, normal capillary refill, pedal edema, other (Edema noted to the left lower extremity no overt Pain no palpable cords) . Absent: tenderness, joint swelling, calf tenderness Back exam: Present: normal inspection, full ROM, CVA tenderness (R). Absent: muscle spasm, paraspinal tenderness, vertebral tenderness, rash noted Neurological exam: Present: alert, oriented X3, CN II-XII intact Psychiatric exam: Present: normal affect, normal mood Skin exam: Present: warm, dry, intact, normal color. Absent: rash Course Vital Signs 12/22/17 12/22/17 12/22/17 10:48 11:05 11:18 Temperature 98.9 F Pulse Rate 87 80 87 Respiratory 24 Rate Blood Pressure 128/62 O2 Sat by Pulse 96 Oximetry 12/22/17 12/22/17 11:49 12:37 Temperature Pulse Rate 70 75 Respiratory 16 18 Rate Blood Pressure 134/71 135/64 O2 Sat by Pulse 97 98 Oximetry - Reevaluation(s) Reevaluation #1: 12/22/17 13:12 Reevaluation at the initial treatment reveals some improvement patient still demonstrates her wheezes diminished breath sounds and basilar rales now. Reevaluation #2: 12/22/17 13:14 EKG was compared with one dated 12/16/17 no changes Medical Decision Making - Medical Decision Making I did discuss findings with the patient family patient will be admitted. I did discuss his Dr. An. Dr. Walker will be consulted - Lab Data Result diagrams: 12/22/17 10:58 12/22/17 10:58 Lab Results 12/22/17 12/22/17 12/22/17 Range/Units 10:58 10:58 10:58 WBC 8.2 (3.8-10.6) k/uL RBC 4.02 L (4.30-5.90) m/uL Hgb 11.6 L (13.0-17.5) gm/dL Hct 35.3 L (39.0-53.0) % MCV 87.8 (80.0-100.0) fL MCH 28.8 (25.0-35.0) pg MCHC 32.8 (31.0-37.0) g/dL RDW 16.4 H (11.5-15.5) % Plt Count 161 (150-450) k/uL Neutrophils % 87 % Lymphocytes % 5 % Monocytes % 6 % Eosinophils % 1 % Basophils % 0 % Neutrophils # 7.2 (1.3-7.7) k/uL Lymphocytes # 0.4 L (1.0-4.8) k/uL Monocytes # 0.5 (0-1.0) k/uL Eosinophils # 0.1 (0-0.7) k/uL Basophils # 0.0 (0-0.2) k/uL Anisocytosis Slight PT (9.0-12.0) sec INR (<1.2) APTT (22.0-30.0) sec D-Dimer (<0.60) mg/L FEU Sodium 132 L (137-145) mmol/L Potassium 4.3 (3.5-5.1) mmol/L Chloride 88 L (98-107) mmol/L Carbon Dioxide 32 H (22-30) mmol/L Anion Gap 12 mmol/L BUN 26 H (9-20) mg/dL Creatinine 0.95 (0.66-1.25) mg/dL Est GFR (CKD-EPI)AfAm >90 (>60 ml/min/1.73 sqM) Est GFR (CKD-EPI)NonAf 86 (>60 ml/min/1.73 sqM) Glucose 322 H (74-99) mg/dL Calcium 9.1 (8.4-10.2) mg/dL Magnesium 1.3 L (1.6-2.3) mg/dL Total Bilirubin 2.7 H (0.2-1.3) mg/dL AST 34 (17-59) U/L ALT 49 (21-72) U/L Alkaline Phosphatase 104 (38-126) U/L Total Creatine Kinase 94 (55-170) U/L CK-MB (CK-2) 3.6 H* (0.0-2.4) ng/mL CK-MB (CK-2) Rel Index 3.8 Troponin I 0.030 (0.000-0.034) ng/mL NT-Pro-B Natriuret Pep pg/mL Total Protein 6.1 L (6.3-8.2) g/dL Albumin 4.0 (3.5-5.0) g/dL Urine Color Urine Appearance (Clear) Urine pH (5.0-8.0) Ur Specific [place] (1.001-1.035) Urine Protein (Negative) Urine Glucose (UA) (Negative) Urine Ketones (Negative) Urine Blood (Negative) Urine Nitrite (Negative) Urine Bilirubin (Negative) Urine Urobilinogen (<2.0) mg/dL Ur Leukocyte Esterase (Negative) 12/22/17 12/22/17 12/22/17 Range/Units 10:58 10:58 11:51 WBC (3.8-10.6) k/uL RBC (4.30-5.90) m/uL Hgb (13.0-17.5) gm/dL Hct (39.0-53.0) % MCV (80.0-100.0) fL MCH (25.0-35.0) pg MCHC (31.0-37.0) g/dL RDW (11.5-15.5) % Plt Count (150-450) k/uL Neutrophils % % Lymphocytes % % Monocytes % % Eosinophils % % Basophils % % Neutrophils # (1.3-7.7) k/uL Lymphocytes # (1.0-4.8) k/uL Monocytes # (0-1.0) k/uL Eosinophils # (0-0.7) k/uL Basophils # (0-0.2) k/uL Anisocytosis PT 12.3 H (9.0-12.0) sec INR 1.3 H (<1.2) APTT 22.6 (22.0-30.0) sec D-Dimer 0.58 (<0.60) mg/L FEU Sodium (137-145) mmol/L Potassium (3.5-5.1) mmol/L Chloride (98-107) mmol/L Carbon Dioxide (22-30) mmol/L Anion Gap mmol/L BUN (9-20) mg/dL Creatinine (0.66-1.25) mg/dL Est GFR (CKD-EPI)AfAm (>60 ml/min/1.73 sqM) Est GFR (CKD-EPI)NonAf (>60 ml/min/1.73 sqM) Glucose (74-99) mg/dL Calcium (8.4-10.2) mg/dL Magnesium (1.6-2.3) mg/dL Total Bilirubin (0.2-1.3) mg/dL AST (17-59) U/L ALT (21-72) U/L Alkaline Phosphatase (38-126) U/L Total Creatine Kinase (55-170) U/L CK-MB (CK-2) (0.0-2.4) ng/mL CK-MB (CK-2) Rel Index Troponin I (0.000-0.034) ng/mL NT-Pro-B Natriuret Pep 6790 pg/mL Total Protein (6.3-8.2) g/dL Albumin (3.5-5.0) g/dL Urine Color Yellow Urine Appearance Clear (Clear) Urine pH 8.0 (5.0-8.0) Ur Specific [place] 1.007 (1.001-1.035) Urine Protein Negative (Negative) Urine Glucose (UA) 3+ H (Negative) Urine Ketones Negative (Negative) Urine Blood Negative (Negative) Urine Nitrite Negative (Negative) Urine Bilirubin Negative (Negative) Urine Urobilinogen <2.0 (<2.0) mg/dL Ur Leukocyte Esterase Negative (Negative) - EKG Data -: EKG Interpreted by Me (Atrial sensed ventricular paced rhythm of 78 [place] interval 276 QRS duration 2) - Radiology Data Radiology results: report reviewed (I did review the imaging and report no definite acute findings), image reviewed Disposition Clinical Impression: CHF (congestive heart failure), Acute exacerbation of chronic obstructive pulmonary disease (COPD), Respiratory distress, Hyperglycemia Disposition: [facility] Condition: Stable Referrals: Mary Merritt MD [Primary Care Provider] - 1-2 days
[2017-12-22 11:16] LABS: Anisocytosis Slight; Basophils % (A) 0 %; Eosinophils # (A) 0.1 k/uL (0-0.7); Eosinophils % (A) 1 %; HCT 35.3 % (39.0-53.0); HGB 11.6 gm/dL (13.0-17.5); Lymphocytes # (A) 0.4 k/uL (1.0-4.8); Lymphocytes % (A) 5 %; MCH 28.8 pg (25.0-35.0); MCHC 32.8 g/dL (31.0-37.0); MCV 87.8 fL (80.0-100.0); Mean Platelet Volume 8.2; Monocytes # (A) 0.5 k/uL (0-1.0); Monocytes % (A) 6 %; Neutrophils # (A) 7.2 k/uL (1.3-7.7); Neutrophils % (A) 87 %; Platelet Count 161 k/uL (150-450); RBC 4.02 m/uL (4.30-5.90); RDW 16.4 % (11.5-15.5); WBC 8.2 k/uL (3.8-10.6)
[2017-12-22 11:25] LABS: INR 1.3 (<1.2)
[2017-12-22 11:26] LABS: ALT 49 U/L (21-72); AST 34 U/L (17-59); Alkaline Phosphatase 104 U/L (38-126); Anion Gap 12 mmol/L; Blood Urea Nitrogen 26 mg/dL (9-20); Calcium 9.1 mg/dL (8.4-10.2); Carbon Dioxide 32 mmol/L (22-30); Chloride 88 mmol/L (98-107); D-Dimer 0.58 mg/L FEU (<0.60); Glucose 322 mg/dL (74-99); Magnesium 1.3 mg/dL (1.6-2.3); Partial Thromboplastin Time 22.6 sec (22.0-30.0); Potassium 4.3 mmol/L (3.5-5.1); Prothrombin Time 12.3 sec (9.0-12.0); Sodium 132 mmol/L (137-145); Total Bilirubin 2.7 mg/dL (0.2-1.3); Total Protein 6.1 g/dL (6.3-8.2)
[2017-12-22 11:47] LABS: Troponin I 0.03 ng/mL (0.000-0.034)
[2017-12-22 11:54] LABS: Creatine Kinase MB 3.6 ng/mL (0.0-2.4)
--- NOTE | 2017-12-22 12:01 | XR ---
EXAMINATION TYPE: XR chest 2V DATE OF EXAM: 12/22/2017 COMPARISON: 12/14/2017 HISTORY: Shortness of breath TECHNIQUE: Frontal and lateral views of the chest are obtained. FINDINGS: Scattered senescent parenchymal changes noted. Hyperinflation compatible with COPD. No evidence for infiltrate. No evidence for atelectasis. Heart size is stable. Mediastinal structures are stable and grossly unremarkable. No evidence for hilar prominence. Degenerative changes dorsal spine. IMPRESSION: 1. No evidence for acute pulmonary disease.
--- NOTE | 2017-12-22 12:02 | XR ---
EXAMINATION TYPE: XR cervical spine comp DATE OF EXAM: 12/22/2017 CLINICAL HISTORY: pain COMPARISON: NONE TECHNIQUE: Frontal, lateral, oblique, swimmers, and open mouth view of the cervical spine are obtaine d. FINDINGS: The cervical spine is visualized in its entirety from C1 thru the top of T1 level. It is s atisfactory in alignment without evidence of acute fracture or dislocation. The pre-vertebral soft t issue appears within normal limits. Moderate multilevel degenerative disc space narrowing and spondyl osis. The C1-C2 articulation is unremarkable on the open mouth view. The oblique images are within n ormal limits. IMPRESSION: No acute fracture or dislocation is seen in the cervical spine.ICD 10 NO FRACTURE, INITI AL EVALUATION
[2017-12-22 12:14] LABS: Appearance,Urine Clear (Clear); Bilirubin,Urine Negative (Negative); Blood,Urine Negative (Negative); Color,Urine Yellow; Glucose,Urine (UA) 3+ (Negative); Ketones,Urine Negative (Negative); Leukocyte Esterase,Urine Negative (Negative); Nitrite,Urine Negative (Negative); Protein,Urine Negative (Negative); Specific Gravity,Urine 1.007 (1.001-1.035); Urobilinogen,Urine <2.0 mg/dL (<2.0)
[2017-12-22] MEDS ORDERED: FUROSEMIDE 10 MG/ML 4 ML VIAL IV STA (12:36)
[2017-12-22] MEDS ORDERED: MAGNESIUM SULFATE-D5W PMX 1 GM in DEXTROSE/WATER 1 100ML.BAG IVPB ONE (12:36)
[2017-12-22] MEDS ORDERED: Magnesium Replacement Protocol 1 EACH MISC MISCELLANE PRN (13:24)
[2017-12-22] MEDS ORDERED: Potassium Replacement Protocol 1 EACH MISC MISCELLANE PRN (13:24)
[2017-12-22] MEDS ORDERED: SODIUM CHLORIDE 0.9% 1,000 ML IV SCH (13:30)
[2017-12-22 14:20] LABS: Glucose,Whole Blood 308 mg/dL (75-99)
[2017-12-22] MEDS: INSULIN REGULAR 100 UNIT in SODIUM CHLORIDE 0.9% 100 ML IV SCH ×2 (14:24→23:49)
[2017-12-22] MEDS ORDERED: D5 IV SCH ×2 (15:15)
[2017-12-22] MEDS ORDERED: KCL IV SCH ×2 (15:15)
[2017-12-22] MEDS ORDERED: NACL IV SCH ×2 (15:15)
[2017-12-22] MEDS ORDERED: DEXTROSE IV SCH ×2 (15:15)
[2017-12-22 15:16] LABS: Glucose,Whole Blood 230 mg/dL (75-99)
[2017-12-22] MEDS: IPRATROPIUM-ALBUTEROL 3 ML NEB INHALATION SCH ×3 (15:45→20:26)
[2017-12-22] MEDS: D5-0.45% NACL WITH KCL 20MEQ/L 1,000 ML IV SCH ×2 (15:59→22:35)
[2017-12-22] MEDS: SODIUM CHLORIDE 0.9% 1,000 ML IV SCH ×2 (16:02→18:21)
[2017-12-22 16:20] LABS: Glucose,Whole Blood 227 mg/dL (75-99)
[2017-12-22 17:07] LABS: Glucose,Whole Blood 141 mg/dL (75-99)
[2017-12-22] MEDS ORDERED: ALPRAZolam 0.25 MG TAB PO PRN (17:45)
[2017-12-22] MEDS: NITROGLYCERIN OINT 1 INCH/GM PACKET TOPICAL SCH ×2 (18:36→20:33)
[2017-12-22] MEDS: methylPREDNISolone SOD SUCCI 125 MG/2 ML VIAL IV SCH ×2 (18:36→22:36)
--- NOTE | 2017-12-22 18:44 | HP ---
HISTORY AND PHYSICAL CHIEF COMPLAINTS: Shortness of breath and leg swelling. HISTORY OF PRESENT ILLNESS: This 62-year-old gentleman with a past medical history of multiple medical problems, including severe cardiomyopathy, ejection fraction less than 20%, history of COPD, diabetes mellitus, hyperlipidemia, history of AICD, CAD, CABG, being followed by Dr. Merritt in the outpatient setting, was complaining of bilateral leg swelling, left more than the right. Patient also had shortness of breath. Patient came to [facility] and was admitted for further evaluation and treatment. Patient was thought to have CHF, acute exacerbation. There is no history of any fever, rigor or chills. No history of headache, loss of consciousness, seizures. Blood sugar has been elevated. CK-MB is 3.6. Troponins are negative. NT proBNP is 6790. PAST MEDICAL HISTORY: 1. History of CAD. 2. COPD. 3. CHF. 4. Diabetes mellitus. 5. Hypertension. 6. Hyperlipidemia. 7. CAD, CABG. HOME MEDICATIONS: 1. Glucophage 500 mg p.o. b.i.d. 2. Aldactone 25 mg p.o. daily. 3. Toprol XL 100 mg p.o. daily. 4. Zestril 2.5 mg daily. 5. Lasix 60 mg p.o. b.i.d. 6. Decadron daily. 7. Lipitor 20 mg p.o. daily. 8. Aspirin 81 mg p.o. daily. 9. Ventolin 2 puffs q.4 p.r.n. ALLERGIES: 1. LATEX. 2. LEVAQUIN. 3. MOLD. 4. PREDNISONE. 5. STEROIDS. FAMILY HISTORY: History of cancer and DC in the family. SOCIAL HISTORY: History of smoking, currently, continued, ongoing. History of alcohol; he drank about 4 beers yesterday. REVIEW OF SYSTEMS: ENT: No diminished hearing. No diminished vision. CARDIOVASCULAR SYSTEM: As mentioned earlier. RESPIRATORY SYSTEM: As mentioned earlier. GI: No nausea, vomiting. : No dysuria or retention. NERVOUS SYSTEM: No numbness, weakness. ALLERGY/IMMUNOLOGY: No asthma, hayfever. MUSCULOSKELETAL: As mentioned earlier. HEMATOLOGY/ONCOLOGY: No history of anemia. ENDOCRINE: As mentioned earlier. CONSTITUTIONAL: As mentioned earlier. DERMATOLOGY: Negative. RHEUMATOLOGY: Negative. PSYCHIATRY: As mentioned earlier. PHYSICAL EXAMINATION: Patient is alert and oriented x3. Pulse 79, blood pressure 128/62, respiration 18, temperature 97.4, pulse ox 94% on room air. HEENT: Conjunctivae normal. Oral mucosa moist. NECK: No jugular venous distention. No carotid bruit. No lymph node enlargement. CARDIOVASCULAR SYSTEM: S1, S2 muffled. No S3. No S4. Ejection systolic murmur present. RESPIRATORY SYSTEM: Breath sounds diminished at the bases. A few scattered rhonchi. No crackles. ABDOMEN: Soft, nontender. No mass palpable. LEGS: Bilateral leg edema, left more than the right. NERVOUS SYSTEM: Higher functions as mentioned earlier. Cranial nerves 2-12 grossly intact. Moves all 4 limbs. No focal motor or sensory deficit. LYMPHATICS: No lymph node palpable in neck, axillae or groin. SKIN: No ulcer, rash, bleeding. JOINTS: No active deforming arthropathy. LABS: WBC 8.2, hemoglobin 11.6. INR 1.3. Sodium 132. Glucose 141, magnesium 1.3. ASSESSMENT: 1. Congestive heart failure, acute exacerbation, with acute on chronic systolic dysfunction, ejection fraction less than 20%. 2. Possible ischemic cardiomyopathy. 3. Possible chronic obstructive pulmonary disease, acute exacerbation. 4. Hyponatremia. 5. Hypomagnesemia. 6. Diabetes mellitus, type 2, uncontrolled, with hyperglycemia. 7. History of coronary artery disease, coronary artery bypass grafting. 8. History of diabetes mellitus, type 2. 9. Hyperlipidemia. 10.History of degenerative joint disease. 11.Chronic hypoxic respiratory failure with home oxygen of 2 to 2.5 L. 12.Obstructive sleep apnea. RECOMMENDATIONS AND DISCUSSION: I recommend to continue current medication, continue with the monitoring, symptomatic treatment. Otherwise I would recommend intravenous diuretics. Monitor fluid/electrolyte balance closely. Steroids. Monitor blood sugars closely. Also get cardiology and pulmonology evaluations. Repeat labs will be ordered. Home medications will be continued. DVT prophylaxis. Smoking cessation has been recommended. Strict intake and output chart. Prognosis guarded because of multiple complex medical issues. Further recommendations to follow. Bronchodilators. Aldactone has been initiated. See orders for details. A copy of this dictation is being forwarded to Dr. Merritt, who is the primary physician. MMODL / IJN: [id number] /
[2017-12-22 18:47] LABS: Glucose,Whole Blood 110 mg/dL (75-99)
[2017-12-22 19:14] LABS: Albumin 4.1 g/dL (3.5-5.0); Calcium 9.3 mg/dL (8.4-10.2); Phosphorus 4.2 mg/dL (2.5-4.5); Potassium 3.8 mmol/L (3.5-5.1); Total Bilirubin 2.3 mg/dL (0.2-1.3); Total Protein 6.3 g/dL (6.3-8.2)
[2017-12-22] MEDS: HEPARIN SODIUM,PORCINE 5,000 UNIT/ML 1 ML VIAL SQ SCH (20:33)
[2017-12-22] MEDS: FUROSEMIDE 10 MG/ML 4 ML VIAL IV SCH (20:34)
[2017-12-22] MEDS ORDERED: FUROSEMIDE 20 MG TAB PO SCH (21:00)
[2017-12-22 21:31] LABS: Glucose,Whole Blood 121 mg/dL (75-99)
[2017-12-22 21:51] LABS: Hemoglobin A1C 7.3 % (4.0-6.0)
[2017-12-22] MEDS: MELATONIN 3 MG TABLET PO SCH (22:35)
[2017-12-22 23:59] LABS: Glucose,Whole Blood 291 mg/dL (75-99)
[2017-12-23] MEDS: SODIUM CHLORIDE 0.9% 1,000 ML IV SCH ×4 (00:38→14:32)
[2017-12-23 01:29] LABS: Glucose,Whole Blood 267 mg/dL (75-99)
[2017-12-23 03:48] LABS: Glucose,Whole Blood 246 mg/dL (75-99)
[2017-12-23] MEDS: FUROSEMIDE 10 MG/ML 4 ML VIAL IV SCH ×3 (04:54→20:29)
[2017-12-23] MEDS: methylPREDNISolone SOD SUCCI 125 MG/2 ML VIAL IV SCH (04:55)
[2017-12-23] MEDS: D5-0.45% NACL WITH KCL 20MEQ/L 1,000 ML IV SCH ×2 (05:21→12:11)
[2017-12-23] MEDS: IPRATROPIUM-ALBUTEROL 3 ML NEB INHALATION PRN (05:31)
[2017-12-23 05:43] LABS: Glucose,Whole Blood 200 mg/dL (75-99)
[2017-12-23 05:52] LABS: Anisocytosis Slight; Basophils % (A) 0 %; Eosinophils % (A) 0 %; HCT 35.1 % (39.0-53.0); HGB 11.2 gm/dL (13.0-17.5); Hypochromasia Slight; Lymphocytes # (A) 0.5 k/uL (1.0-4.8); Lymphocytes % (A) 5 %; MCH 28.5 pg (25.0-35.0); MCHC 31.9 g/dL (31.0-37.0); MCV 89.2 fL (80.0-100.0); Mean Platelet Volume 8.1; Monocytes # (A) 0.3 k/uL (0-1.0); Monocytes % (A) 3 %; Neutrophils # (A) 8.1 k/uL (1.3-7.7); Neutrophils % (A) 91 %; Platelet Count 150 k/uL (150-450); RBC 3.93 m/uL (4.30-5.90); RDW 16.4 % (11.5-15.5); WBC 8.9 k/uL (3.8-10.6)
[2017-12-23 06:06] LABS: Anion Gap 11 mmol/L; Blood Urea Nitrogen 25 mg/dL (9-20); Calcium 8.9 mg/dL (8.4-10.2); Carbon Dioxide 32 mmol/L (22-30); Chloride 91 mmol/L (98-107); Glucose 182 mg/dL (74-99); Potassium 4.3 mmol/L (3.5-5.1); Sodium 134 mmol/L (137-145)
[2017-12-23] MEDS: INSULIN REGULAR 100 UNIT in SODIUM CHLORIDE 0.9% 100 ML IV SCH (07:56)
[2017-12-23] MEDS: LISINOPRIL 2.5 MG TAB PO SCH (08:05)
[2017-12-23] MEDS: HEPARIN SODIUM,PORCINE 5,000 UNIT/ML 1 ML VIAL SQ SCH ×2 (08:05→20:29)
[2017-12-23] MEDS: ATORVASTATIN 20 MG TAB PO SCH (08:05)
[2017-12-23 08:06] LABS: Glucose,Whole Blood 250 mg/dL (75-99)
[2017-12-23] MEDS: NICOTINE 14MG/24HR PATCH TRANSDERM SCH (08:06)
[2017-12-23] MEDS: NITROGLYCERIN OINT 1 INCH/GM PACKET TOPICAL SCH (08:06)
[2017-12-23] MEDS ORDERED: ASPIRIN 325 MG TAB PO SCH (09:00)
[2017-12-23] MEDS: IPRATROPIUM-ALBUTEROL 3 ML NEB INHALATION SCH ×4 (09:02→19:19)
[2017-12-23] MEDS: METOPROLOL SUCCINATE (ER) 100 MG TAB.ER.24H PO SCH (09:18)
[2017-12-23] MEDS: SPIRONOLACTONE 25 MG TAB PO SCH (09:18)
--- NOTE | 2017-12-23 09:36 | P.CRDCN ---
History of Present Illness Consult date: 12/23/17 Requesting physician: Rishi An Consult reason: congestive heart failure Chief complaint: Bilateral leg swelling History of present illness: This is a 62-year-old gentleman who follows regularly with Dr. Moore in the office. He has a known history of systolic congestive heart failure, coronary artery disease with prior bypass surgery, ischemic cardio myopathy with an ejection fraction documented less than 20%, prior AICD implantation, advanced COPD, atrial tachycardia, diabetes, pulmonary hypertension, nicotine dependence, and daily EtOH use of up to 12 alcoholic beverages today. Patient was recently in the hospital for a COPD exacerbation and heart failure exacerbation. Went home and states overall he was feeling well. Just prior to his mission here, patient noticed that he had significant bilateral lower extremity swelling which seemed to come on all of a sudden. As stated patient does drink up to 12 alcoholic beverages per day and drinks about 2 bottles of water per day. His EKG on admission here shows an atrial sensed V paced rhythm. Chest x-ray did not reveal any evidence of acute pulmonary disease. Cervical spine x-ray did not reveal any evidence of fracture or dislocation. The pressure on arrival 128/60 with heart rate in the 80s, 96% on room air. White blood cell count 8.9, hemoglobin 11.2, platelet count 150. D-dimer 0.5. Sodium 134, potassium 4.3, BUN 25, creatinine 0.9. BNP level 6790. Magnesium 1.3. Troponin 0.03, 0.03, 0.03. Patient was initiated on IV Lasix in the emergency room, weight is down 2 kg today. At the time of my examination this morning, patient states that his swelling is most completely gone compared to what hes used too.. He does have significant wheezing which she states is normal for him. Past Medical History Past Medical History: Coronary Artery Disease (CAD), Chest Pain / Angina, Heart Failure, COPD, Diabetes Mellitus, Hyperlipidemia, Myocardial Infarction ([place]), Osteoarthritis (OA) Additional Past Medical History / Comment(s): Coronary artery disease with a previous bypass surgery, ischemic cardiomyopathy with ejection fraction of less than 20%,HOME 02 2-2.5 LITERS AT HS, COPD, obstructive sleep apnea with an AHI of 24 currently on auto CPAP unit, obesity, hypertension, AICD placement for ischemic cardiomyopathy, Cardiomyopathy, osteoarthritis, diabetes mellitus, hyperlipidemia, hypertension. Last Myocardial Infarction Date:: UNSURE History of Any Multi-Drug Resistant Organisms: None Reported Past Surgical History: AICD, Coronary Bypass/CABG, Heart Catheterization, Orthopedic Surgery Additional Past Surgical History / Comment(s): Pacemaker and AICD- 10/2013, CABG 1 vessel many yrs ago per pt, BILATERAL SHOULDER SURGERY , steel alcides in leg from fracture, bilat shoulders Past Anesthesia/Blood Transfusion Reactions: No Reported Reaction Type of Cardiac Device: Permanent Pacemaker, AICD Device Placement Date:: Smoking Status: Current every day smoker - Past Family History Mother History Unknown: Yes Father Family Medical History: Myocardial Infarction ([place]) Additional Family Medical History / Comment(s): Father of a [place] at the age of 56yrs. Brother(s) Family Medical History: Cancer Medications and Allergies Home Medications Medication Instructions Recorded Confirmed Type Atorvastatin [Lipitor] 20 mg PO DAILY 05/18/16 12/22/17 History metFORMIN HCL [Glucophage] 500 mg PO BID 02/13/17 12/22/17 History Albuterol Inhaler [Ventolin Hfa 2 puff INHALATION RT-Q4H PRN 05/28/17 12/22/17 History Inhaler] Metoprolol Succinate [Toprol XL] 100 mg PO DAILY 05/28/17 12/22/17 History Aspirin [Adult Low Dose Aspirin EC] 81 mg PO DAILY 09/11/17 12/22/17 History Spironolactone [Aldactone] 25 mg PO DAILY 09/11/17 12/22/17 History Lisinopril [Zestril] 2.5 mg PO DAILY #30 tab 09/16/17 12/22/17 Rx Furosemide [Lasix] 60 mg PO BID 12/14/17 12/22/17 History Dexamethasone [Decadron] See Taper PO DAILY 12/22/17 12/22/17 History Allergies Allergy/AdvReac Type Severity Reaction Status Date / Time Latex, Natural Rubber Allergy Rash/Hives Verified 12/22/17 11:49 levofloxacin [From Levaquin] Allergy Rash/Hives Verified 12/22/17 11:49 mold Allergy Rash/Hives Verified 12/22/17 11:49 prednisone Allergy Rash/Hives Verified 12/22/17 11:49 STEROIDS Allergy Rash/Hives Uncoded 12/22/17 10:51 Physical Exam Vitals: Vital Signs Temp Pulse Pulse Resp BP BP BP 12/23/17 09:03 72 12/23/17 08:00 69 17 12/23/17 07:59 96.8 F L 69 17 121/63 12/23/17 05:38 66 12/23/17 05:31 61 12/23/17 03:51 97 F L 68 18 129/68 12/23/17 00:00 97 F L 76 18 121/67 12/22/17 20:00 97 F L 82 18 126/71 12/22/17 19:47 78 12/22/17 19:39 75 12/22/17 17:02 79 18 12/22/17 16:59 97.4 F L 79 18 120/65 12/22/17 15:59 72 12/22/17 15:45 68 12/22/17 13:45 76 19 133/80 12/22/17 12:37 75 18 135/64 12/22/17 11:49 70 16 134/71 12/22/17 11:18 87 12/22/17 11:05 80 12/22/17 10:48 98.9 F 87 24 128/62 Pulse Ox 12/23/17 09:03 12/23/17 08:00 12/23/17 07:59 98 12/23/17 05:38 12/23/17 05:31 12/23/17 03:51 99 12/23/17 00:00 97 12/22/17 20:00 97 12/22/17 19:47 12/22/17 19:39 12/22/17 17:02 12/22/17 16:59 95 12/22/17 15:59 12/22/17 15:45 12/22/17 13:45 98 12/22/17 12:37 98 12/22/17 11:49 97 12/22/17 11:18 12/22/17 11:05 12/22/17 10:48 96 Intake and Output 12/22/17 12/23/17 12/23/17 22:59 06:59 14:59 Intake Total 291.49 27.877 249.607 Output Total 500 2550 Balance -208.51 2522.123 249.607 Intake: Intake, IV Titration 51.49 27.877 9.607 Amount Insulin Regular 100 unit 51.49 27.877 9.607 In Sodium Chloride 0.9% 100 ml @ 0.1 UNITS/KG/HR 11.4 mls/hr IV .Q8H52M [facility] Rx#:[id number] Oral 240 240 Output: Urine 500 2550 Other: Voiding Method Urinal Urinal Urinal # Voids 1 Weight 110.8 kg PHYSICAL EXAMINATION: GENERAL: HEENT: Head is atraumatic, normocephalic. Pupils equal, round. Sclera anicteric. Conjunctiva are clear. Mucous membranes of the mouth are moist. Neck is supple. There is no elevated jugular venous pressure.] bruit is heard. HEART EXAMINATION: Heart S1 and S2 systolic murmur is heard. CHEST EXAMINATION: Lungs reveal decreased air exchange with coarse wheezing throughout. ABDOMEN: Soft, nontender. Bowel sounds are heard. No organomegaly noted. EXTREMITIES: 2+ peripheral pulses with trace evidence of peripheral edema, left leg more than the right leg, no calf tenderness noted. NEUROLOGIC patient is awake, alert and oriented -3. . Results 12/23/17 05:41 12/23/17 05:41 Cardiac Enzymes 12/22/17 12/22/17 12/22/17 Range/Units 10:58 10:58 18:53 AST 34 (17-59) U/L CK-MB (CK-2) 3.6 H* (0.0-2.4) ng/mL Troponin I 0.030 0.036 H* (0.000-0.034) ng/mL 12/22/17 12/22/17 Range/Units 18:53 22:39 AST 36 (17-59) U/L CK-MB (CK-2) (0.0-2.4) ng/mL Troponin I 0.036 H* (0.000-0.034) ng/mL Coagulation 12/22/17 Range/Units 10:58 PT 12.3 H (9.0-12.0) sec APTT 22.6 (22.0-30.0) sec CBC 12/22/17 12/23/17 Range/Units 10:58 05:41 WBC 8.2 8.9 (3.8-10.6) k/uL RBC 4.02 L 3.93 L (4.30-5.90) m/uL Hgb 11.6 L 11.2 L (13.0-17.5) gm/dL Hct 35.3 L 35.1 L (39.0-53.0) % Plt Count 161 150 (150-450) k/uL Comprehensive Metabolic Panel 12/22/17 12/22/17 12/23/17 Range/Units 10:58 18:53 05:41 Sodium 132 L 136 L 134 L (137-145) mmol/L Potassium 4.3 3.8 4.3 (3.5-5.1) mmol/L Chloride 88 L 88 L 91 L (98-107) mmol/L Carbon Dioxide 32 H 35 H 32 H (22-30) mmol/L BUN 26 H 26 H 25 H (9-20) mg/dL Creatinine 0.95 1.13 0.90 (0.66-1.25) mg/dL Glucose 322 H 70 L 182 H (74-99) mg/dL Calcium 9.1 9.3 8.9 (8.4-10.2) mg/dL AST 34 36 (17-59) U/L ALT 49 47 (21-72) U/L Alkaline Phosphatase 104 102 (38-126) U/L Total Protein 6.1 L 6.3 (6.3-8.2) g/dL Albumin 4.0 4.1 (3.5-5.0) g/dL Current Medications Generic Name Dose Route Start Last Admin Trade Name Freq PRN Reason Stop Dose Admin Albuterol/Ipratropium 3 ml 12/22/17 20:00 12/23/17 09:02 Duoneb 0.5 Mg-3 Mg/3 Ml Soln INHALATION 3 ml RT-QID BRO Administration Albuterol/Ipratropium 3 ml 12/22/17 19:59 12/23/17 05:31 Duoneb 0.5 Mg-3 Mg/3 Ml Soln INHALATION 3 ml RT-Q2H PRN Administration Shortness Of Breath Or Wheezing Alprazolam 0.25 mg 12/22/17 17:45 Xanax PO TID PRN Anxiety Aspirin 325 mg 12/23/17 09:00 12/23/17 08:05 Aspirin PO 325 mg DAILY BRO Administration Atorvastatin Calcium 20 mg 12/23/17 09:00 12/23/17 08:05 Lipitor PO 20 mg DAILY BRO Administration Furosemide 40 mg 12/22/17 21:00 12/23/17 04:54 Lasix IV 40 mg Q8H BRO Administration Heparin Sodium (Porcine) 5,000 unit 12/22/17 21:00 12/23/17 08:05 Heparin SQ 5,000 unit Q12HR BRO Administration Insulin Human Regular 100 unit 101 mls @ 11.4 mls/hr 12/22/17 13:30 12/23/17 08:06 / Sodium Chloride IV 0.03 units/kg/hr .Q8H52M BRO 4.4 mls/hr Protocol Titration 0.1 UNITS/KG/HR Sodium Chloride 1,000 mls @ 200 mls/hr 12/22/17 13:30 12/23/17 04:50 Saline 0.9% IV Not Given .Q5H BRO Potassium Chloride/Dextrose/Sod Cl 1,000 mls @ 150 mls/hr 12/22/17 15:30 05:21 D5%-1/2ns-Kcl 20 Meq/L Iv Solution IV 150 mls/hr .Q6H40M BRO Administration Lisinopril 2.5 mg 12/23/17 09:00 12/23/17 08:05 Zestril PO 2.5 mg DAILY BRO Administration Melatonin 3 mg 12/22/17 21:00 12/22/17 22:35 Melatonin PO 3 mg HS BRO Administration Methylprednisolone Sodium Succinate 60 mg 12/22/17 18:00 12/23/17 04:55 Solu-Medrol IV 60 mg Q6HR BRO Administration Metoprolol Succinate 100 mg 12/23/17 09:00 12/23/17 09:18 Toprol Xl PO 100 mg DAILY BRO Administration Miscellaneous Information 1 each 12/22/17 13:24 Magnesium Per Protocol MISCELLANE DAILY PRN Per Protocol Protocol Miscellaneous Information 1 each 12/22/17 13:24 Potassium Per Protocol MISCELLANE DAILY PRN Per Protocol Nicotine 1 patch 12/23/17 09:00 12/23/17 08:06 Habitrol 14mg/24hr Patch TRANSDERM 1 patch DAILY BRO Administration Nitroglycerin 1 inch 12/22/17 18:00 12/23/17 08:06 Nitro-Bid Oint TOPICAL Not Given QID BRO Spironolactone 25 mg 12/23/17 09:00 12/23/17 09:18 Aldactone PO 25 mg DAILY BRO Administration Intake and Output 12/22/17 12/23/17 12/23/17 22:59 06:59 14:59 Intake Total 291.49 27.877 249.607 Output Total 500 2550 Balance -208.51 -2522.123 249.607 Intake: Intake, IV Titration 51.49 27.877 9.607 Amount Insulin Regular 100 unit 51.49 27.877 9.607 In Sodium Chloride 0.9% 100 ml @ 0.1 UNITS/KG/HR 11.4 mls/hr IV .Q8H52M [facility] Rx#:[id number] Oral 240 240 Output: Urine 500 2550 Other: Voiding Method Urinal Urinal Urinal # Voids 1 Weight 110.8 kg 12/23/17 05:41 12/23/17 05:41 EKG Interpretations (text) EKG shows an atrial sensitivity paced rhythm. Assessment and Plan Plan: Assessment and plan #1 systolic congestive heart failure acute on chronic #2 ischemic cardio myopathy with prior AICD implantation #3 COPD exacerbation #4 known history of coronary artery disease and prior bypass surgery #5 diabetes #6 hypertension #7 hyperlipidemia #8 nicotine dependence #9 EtOH use of up to 12 alcoholic beverages per day #10 hypomagnesemia, replaced #11 abnormal troponins, not consistent with acute coronary syndrome, likely secondary to supply and demand mismatch Plan Patient had an echocardiogram with Doppler study performed in September of this year which revealed an ejection fraction of less than 20%, we will not repeat an echo on this admission. We will continue current dose of IV Lasix for 24 hours. Decrease aspirin to 81 mg daily. Continue beta hermilo, NANNETTE inhibitor , and Aldactone. Check lytes BUN and creatinine in the morning, continue to monitor daily weights and taken output's. Patient has been advised strongly regarding the importance of nicotine and alcohol cessation. Further recommendations to follow. DNP note has been reviewed, I agree with a documented findings and plan of care. Patient was seen and examined.
--- NOTE | 2017-12-23 10:14 | P.CNPUL ---
History of Present Illness Consult date: 12/23/17 Requesting physician: Rishi An Reason for consult: dyspnea, COPD Chief complaint: Lower extremity edema History of present illness: This is a very pleasant 62-year-old gentleman follows with Dr. Merritt is his primary care physician. He has a medical history of obesity, diabetes mellitus , hypertension, hyperlipidemia, coronary artery disease with previous coronary artery bypass grafting, ischemic cardio myopathy with ejection fraction less than 20% status post ICD placement. He also has chronic and ongoing 45 year smoking history and chronic obstructive pulmonary disease with an FEV1 value of 40% of predicted. He also has obstructive sleep apnea with an AHI of 24 and has been mainly noncompliant with CPAP in the past. He does have home oxygen therapy utilizes for nocturnal dyspnea and desaturations and throughout the day as needed. He follows with Dr. Iraheta in our office for the same. The patient does admit to drinking 6-8 beers a day and excessive water intake. He presented here to the emergency room yesterday after taking a shower and noting increased lower extremity peripheral edema. His chest x-ray shows evidence of COPD but no overt heart failure. ProBNP level was 6790. He was initiated on IV diuretics 40 mg every 8 hours and his lower extremity peripheral edema is much improved today. He is currently obtaining good O2 saturations in the upper 90s on room air. He's been afebrile. Hemodynamically stable. White count 8.9. Hemoglobin 11.2. Creatinine 0.90. Review of Systems Eyes: denies blurred vision, denies decreased vision Ears: deny: decreased hearing Ears, nose, mouth and throat: Denies headache, Denies sore throat Cardiovascular: Reports decreased exercise tolerance, Reports dyspnea on exertion, Reports leg edema, Reports paroxysmal nocturnal dyspnea, Reports shortness of breath Respiratory: Reports dyspnea, Reports home oxygen, Reports sleep apnea Gastrointestinal: Denies abdominal pain, Denies diarrhea, Denies nausea, Denies vomiting Genitourinary: Reports as per HPI Musculoskeletal: Reports limitation of motion, Reports muscle weakness Musculoskeletal: bilateral: ankle swelling Integumentary: Denies pruritus, Denies rash Neurological: Denies numbness, Denies weakness Psychiatric: Denies anxiety, Denies depression Endocrine: Denies fatigue, Denies weight change Past Medical History Past Medical History: Coronary Artery Disease (CAD), Chest Pain / Angina, Heart Failure, COPD, Diabetes Mellitus, Hyperlipidemia, Myocardial Infarction ([place]), Osteoarthritis (OA) Additional Past Medical History / Comment(s): Coronary artery disease with a previous bypass surgery, ischemic cardiomyopathy with ejection fraction of less than 20%,HOME 02 2-2.5 LITERS AT HS, COPD, obstructive sleep apnea with an AHI of 24 currently on auto CPAP unit, obesity, hypertension, AICD placement for ischemic cardiomyopathy, Cardiomyopathy, osteoarthritis, diabetes mellitus, hyperlipidemia, hypertension. Last Myocardial Infarction Date:: UNSURE History of Any Multi-Drug Resistant Organisms: None Reported Past Surgical History: AICD, Coronary Bypass/CABG, Heart Catheterization, Orthopedic Surgery Additional Past Surgical History / Comment(s): Pacemaker and AICD- 10/2013, CABG 1 vessel many yrs ago per pt, BILATERAL SHOULDER SURGERY , steel alcides in leg from fracture, bilat shoulders Past Anesthesia/Blood Transfusion Reactions: No Reported Reaction Type of Cardiac Device: Permanent Pacemaker, AICD Device Placement Date:: Smoking Status: Current every day smoker - Past Family History Mother History Unknown: Yes Father Family Medical History: Myocardial Infarction ([place]) Additional Family Medical History / Comment(s): Father of a [place] at the age of 56yrs. Brother(s) Family Medical History: Cancer Medications and Allergies Home Medications Medication Instructions Recorded Confirmed Type Atorvastatin [Lipitor] 20 mg PO DAILY 05/18/16 12/22/17 History metFORMIN HCL [Glucophage] 500 mg PO BID 02/13/17 12/22/17 History Albuterol Inhaler [Ventolin Hfa 2 puff INHALATION RT-Q4H PRN 05/28/17 12/22/17 History Inhaler] Metoprolol Succinate [Toprol XL] 100 mg PO DAILY 05/28/17 12/22/17 History Aspirin [Adult Low Dose Aspirin EC] 81 mg PO DAILY 09/11/17 12/22/17 History Spironolactone [Aldactone] 25 mg PO DAILY 09/11/17 12/22/17 History Lisinopril [Zestril] 2.5 mg PO DAILY #30 tab 09/16/17 12/22/17 Rx Furosemide [Lasix] 60 mg PO BID 12/14/17 12/22/17 History Dexamethasone [Decadron] See Taper PO DAILY 12/22/17 12/22/17 History Allergies Allergy/AdvReac Type Severity Reaction Status Date / Time Latex, Natural Rubber Allergy Rash/Hives Verified 12/22/17 11:49 levofloxacin [From Levaquin] Allergy Rash/Hives Verified 12/22/17 11:49 mold Allergy Rash/Hives Verified 12/22/17 11:49 prednisone Allergy Rash/Hives Verified 12/22/17 11:49 STEROIDS Allergy Rash/Hives Uncoded 12/22/17 10:51 Physical Exam Vitals: Vital Signs Temp Pulse Pulse Resp BP BP BP 12/23/17 09:19 72 12/23/17 09:03 72 12/23/17 08:00 69 17 12/23/17 07:59 96.8 F L 69 17 121/63 12/23/17 05:38 66 12/23/17 05:31 61 12/23/17 03:51 97 F L 68 18 129/68 12/23/17 00:00 97 F L 76 18 121/67 12/22/17 20:00 97 F L 82 18 126/71 12/22/17 19:47 78 12/22/17 19:39 75 12/22/17 17:02 79 18 12/22/17 16:59 97.4 F L 79 18 120/65 12/22/17 15:59 72 12/22/17 15:45 68 12/22/17 13:45 76 19 133/80 12/22/17 12:37 75 18 135/64 12/22/17 11:49 70 16 134/71 12/22/17 11:18 87 12/22/17 11:05 80 12/22/17 10:48 98.9 F 87 24 128/62 Pulse Ox 12/23/17 09:19 12/23/17 09:03 12/23/17 08:00 12/23/17 07:59 98 12/23/17 05:38 12/23/17 05:31 12/23/17 03:51 99 12/23/17 00:00 97 12/22/17 20:00 97 12/22/17 19:47 12/22/17 19:39 12/22/17 17:02 12/22/17 16:59 95 12/22/17 15:59 12/22/17 15:45 12/22/17 13:45 98 12/22/17 12:37 98 12/22/17 11:49 97 12/22/17 11:18 12/22/17 11:05 12/22/17 10:48 96 Intake and Output 12/22/17 12/23/17 12/23/17 22:59 06:59 14:59 Intake Total 291.49 27.877 249.607 Output Total 500 2550 Balance -208.51 -2522.123 249.607 Intake: Intake, IV Titration 51.49 27.877 9.607 Amount Insulin Regular 100 unit 51.49 27.877 9.607 In Sodium Chloride 0.9% 100 ml @ 0.1 UNITS/KG/HR 11.4 mls/hr IV .Q8H52M [facility] Rx#:[id number] Oral 240 240 Output: Urine 500 2550 Other: Voiding Method Urinal Urinal Urinal # Voids 1 Weight 110.8 kg - Constitutional General appearance: obese - EENT Eyes: EOMI, PERRLA ENT: hearing grossly normal Ears: bilateral: normal - Neck Neck: normal ROM Carotids: bilateral: upstroke normal Thyroid: bilateral: normal size - Respiratory Respiratory: bilateral: CTA, diminished - Cardiovascular Rhythm: regular Heart sounds: normal: S1, S2 Abnormal Heart Sounds: systolic murmur - Gastrointestinal General gastrointestinal: normal bowel sounds - Integumentary Integumentary: normal turgor - Neurologic Neurologic: CNII-XII intact - Musculoskeletal Musculoskeletal: generalized weakness - Psychiatric Psychiatric: A&O x's 3 Results - Laboratory Findings CBC and BMP: 12/23/17 05:41 12/23/17 05:41 PT/INR, D-dimer PT 12.3 sec (9.0-12.0) H 12/22/17 10:58 INR 1.3 (<1.2) H 12/22/17 10:58 D-Dimer 0.58 mg/L FEU (<0.60) 12/22/17 10:58 Abnormal lab findings: Abnormal Labs 12/22/17 12/22/17 12/22/17 10:58 10:58 10:58 RBC 4.02 L Hgb 11.6 L Hct 35.3 L RDW 16.4 H Neutrophils # Lymphocytes # 0.4 L PT INR Sodium 132 L Chloride 88 L Carbon Dioxide 32 H BUN 26 H Glucose 322 H POC Glucose (mg/dL) Hemoglobin A1c Magnesium 1.3 L Total Bilirubin 2.7 H CK-MB (CK-2) 3.6 H* Troponin I Total Protein 6.1 L Urine Glucose (UA) 12/22/17 12/22/17 12/22/17 10:58 10:58 11:51 RBC Hgb Hct RDW Neutrophils # Lymphocytes # PT 12.3 H INR 1.3 H Sodium Chloride Carbon Dioxide BUN Glucose POC Glucose (mg/dL) Hemoglobin A1c 7.3 H Magnesium Total Bilirubin CK-MB (CK-2) Troponin I Total Protein Urine Glucose (UA) 3+ H 12/22/17 12/22/17 12/22/17 14:06 14:55 15:59 RBC Hgb Hct RDW Neutrophils # Lymphocytes # PT INR Sodium Chloride Carbon Dioxide BUN Glucose POC Glucose (mg/dL) 308 H 230 H 227 H Hemoglobin A1c Magnesium Total Bilirubin CK-MB (CK-2) Troponin I Total Protein Urine Glucose (UA) 12/22/17 12/22/17 12/22/17 16:59 18:45 18:53 RBC Hgb Hct RDW Neutrophils # Lymphocytes # PT INR Sodium Chloride Carbon Dioxide BUN Glucose POC Glucose (mg/dL) 141 H 110 H Hemoglobin A1c Magnesium Total Bilirubin CK-MB (CK-2) Troponin I 0.036 H* Total Protein Urine Glucose (UA) 12/22/17 12/22/17 12/22/17 18:53 21:29 22:39 RBC Hgb Hct RDW Neutrophils # Lymphocytes # PT INR Sodium 136 L Chloride 88 L Carbon Dioxide 35 H BUN 26 H Glucose 70 L POC Glucose (mg/dL) 121 H Hemoglobin A1c Magnesium Total Bilirubin 2.3 H CK-MB (CK-2) Troponin I 0.036 H* Total Protein Urine Glucose (UA) 12/22/17 12/23/17 12/23/17 23:47 01:27 03:38 RBC Hgb Hct RDW Neutrophils # Lymphocytes # PT INR Sodium Chloride Carbon Dioxide BUN Glucose POC Glucose (mg/dL) 291 H 267 H 246 H Hemoglobin A1c Magnesium Total Bilirubin CK-MB (CK-2) Troponin I Total Protein Urine Glucose (UA) 12/23/17 12/23/17 12/23/17 05:41 05:41 05:41 RBC 3.93 L Hgb 11.2 L Hct 35.1 L RDW 16.4 H Neutrophils # 8.1 H Lymphocytes # 0.5 L PT INR Sodium 134 L Chloride 91 L Carbon Dioxide 32 H BUN 25 H Glucose 182 H POC Glucose (mg/dL) 200 H Hemoglobin A1c Magnesium Total Bilirubin CK-MB (CK-2) Troponin I Total Protein Urine Glucose (UA) 12/23/17 07:46 RBC Hgb Hct RDW Neutrophils # Lymphocytes # PT INR Sodium Chloride Carbon Dioxide BUN Glucose POC Glucose (mg/dL) 250 H Hemoglobin A1c Magnesium Total Bilirubin CK-MB (CK-2) Troponin I Total Protein Urine Glucose (UA) - Diagnostic Findings Chest x-ray: image reviewed Assessment and Plan Assessment: Impression: #1 Acute on chronic hypoxic respiratory failure secondary to an acute exacerbation of chronic systolic congestive heart failure with lower extremity edema. #2 Acute on chronic hypercapnic respiratory failure secondary to COPD exacerbation. #3 Chronic and ongoing tobacco dependence. #4 Chronic and ongoing alcohol dependence. #5 Obstructive sleep apnea with an AHI of 24, noncompliant with CPAP in the past. #6 Coronary artery disease with previous coronary artery bypass grafting. #7 Ischemic cardiomyopathy with an ejection fraction 20%, status post AICD placement. #8 Obesity. #9 Diabetes mellitus. #10 Hypertension. #11 Hyperlipidemia. #12 Osteoarthritis. Plan: The patient was seen and evaluated by Dr. Walker. Chest x-ray and labs were reviewed. We'll continue with his current treatment including IV diuretics and Aldactone. We'll continue with his treatment for mild COPD exacerbation. including IV Solu-Medrol and bronchodilators. He is currently on an insulin drip. Will be able to back off the steroids now. He is on heparin subcutaneous for DVT prophylaxis. He is educated regarding the importance of complete smoking cessation. NicoDerm patches in place. He is also educated regarding the importance of alcohol cessation and possible fluid restrictions. Cardiology is on the case as well. We will continue to follow and make further recommendations based on his clinical status. Probable discharge in the a.m. I, the cosigning physician, performed a history & physical examination of the patient. Lungs sounds are clear. Diminished. Maintaining good O2 saturations in the 90s on room air. I discussed the assessment and plan of care with my nurse practitioner, Narcisa Graham. I attest to the above consultation as dictated by her. Time with Patient: Greater than 30
[2017-12-23 10:31] LABS: ALT 42 U/L (21-72); AST 30 U/L (17-59); Albumin 3.7 g/dL (3.5-5.0); Alkaline Phosphatase 85 U/L (38-126); Anion Gap 12 mmol/L; Blood Urea Nitrogen 25 mg/dL (9-20); Calcium 8.7 mg/dL (8.4-10.2); Carbon Dioxide 31 mmol/L (22-30); Chloride 90 mmol/L (98-107); Glucose 291 mg/dL (74-99); Potassium 4.5 mmol/L (3.5-5.1); Sodium 133 mmol/L (137-145); Total Bilirubin 2.2 mg/dL (0.2-1.3); Total Protein 5.8 g/dL (6.3-8.2)
[2017-12-23 10:50] LABS: Glucose,Whole Blood 303 mg/dL (75-99)
[2017-12-23 11:50] LABS: Glucose,Whole Blood 253 mg/dL (75-99)
[2017-12-23 14:04] LABS: Glucose,Whole Blood 230 mg/dL (75-99)
[2017-12-23 14:41] VITALS: BMI 33.1
[2017-12-23] MEDS ORDERED: INSULIN REGULAR 100 UNIT in SODIUM CHLORIDE 0.9% 100 ML IV SCH (15:45)
[2017-12-23 16:18] LABS: ALT 49 U/L (21-72); AST 31 U/L (17-59); Alkaline Phosphatase 90 U/L (38-126); Anion Gap 13 mmol/L; Blood Urea Nitrogen 26 mg/dL (9-20); Calcium 9.1 mg/dL (8.4-10.2); Carbon Dioxide 30 mmol/L (22-30); Chloride 93 mmol/L (98-107); Glucose 136 mg/dL (74-99); Potassium 4.5 mmol/L (3.5-5.1); Sodium 136 mmol/L (137-145); Total Bilirubin 2.1 mg/dL (0.2-1.3); Total Protein 6.2 g/dL (6.3-8.2)
[2017-12-23 16:37] LABS: Glucose,Whole Blood 142 mg/dL (75-99)
[2017-12-23] MEDS: methylPREDNISolone SOD SUCCI 40 MG/ML 1 ML VIAL IV SCH (16:37)
[2017-12-23] MEDS: INSULIN ASPART 100 UNIT/ML 1 ML 10 ML VIAL SQ SCH ×2 (17:05→21:23)
--- NOTE | 2017-12-23 17:36 | PN ---
PROGRESS NOTE DATE OF SERVICE: 12/23/2017 This 62-year-old gentleman who was admitted with CHF acute exacerbation also had ejection fraction about 20%. The patient also had possible ischemic cardiomyopathy. Patient being closely monitored. Patient also with possible COPD as well. There is no history of any fever, rigor, chills at this time. Patient is on diuretics. PHYSICAL EXAM: GENERAL: Patient is alert, oriented x3. VITAL SIGNS: Pulse 58. Blood pressure 153/60. Respirations 17. Temperature normal. Pulse ox 98% on room air. HEENT: Conjunctivae normal. NECK: No jugular venous distention. CARDIOVASCULAR: S1, S2 muffled. RESPIRATORY: Breath sounds diminished in the bases. A few scattered rhonchi and crackles. ABDOMEN: Soft, nontender. LEGS: No edema. No swelling. CENTRAL NERVOUS SYSTEM: No focal deficits. LABS: Hemoglobin 11.2, sodium 133 and glucose 230. Troponin 0.036. ASSESSMENT: 1. Congestive heart failure acute exacerbation with acute on chronic systolic dysfunction ejection fraction less than 20%. 2. Possible ischemic cardiomyopathy. 3. Chronic obstructive pulmonary disease acute exacerbation. 4. Hyponatremia. 5. Hypomagnesemia. 6. Diabetes type 2, uncontrolled with hyperglycemia. 7. History of coronary artery disease, coronary artery bypass grafting. 8. Hyperlipidemia. 9. History of degenerative joint disease. 10.Chronic hypoxic respiratory failure on home O2 2 to 2.5 L oxygen. 11.Obstructive sleep apnea. RECOMMENDATIONS AND DISCUSSION: Recommend to continue current medications, management and symptomatic treatment. Continue with the diuretics cautiously. Otherwise, continue to monitor. Prognosis guarded. Further recommendations to follow. MMODL / IJN: [id number] /
[2017-12-23 18:14] LABS: Glucose,Whole Blood 143 mg/dL (75-99)
[2017-12-23 18:25] LABS: Glucose,Whole Blood 155 mg/dL (75-99)
[2017-12-23 20:04] LABS: Glucose,Whole Blood 117 mg/dL (75-99)
[2017-12-23] MEDS: MELATONIN 3 MG TABLET PO SCH (20:29)
[2017-12-23 21:11] LABS: Glucose,Whole Blood 109 mg/dL (75-99)
[2017-12-24] MEDS: methylPREDNISolone SOD SUCCI 40 MG/ML 1 ML VIAL IV SCH ×2 (00:31→08:48)
[2017-12-24] MEDS: IPRATROPIUM-ALBUTEROL 3 ML NEB INHALATION PRN (03:39)
[2017-12-24] MEDS: FUROSEMIDE 10 MG/ML 4 ML VIAL IV SCH (04:53)
[2017-12-24 06:20] LABS: Glucose,Whole Blood 332 mg/dL (75-99)
[2017-12-24 06:43] LABS: Anisocytosis Slight; Basophils % (A) 0 %; Eosinophils % (A) 0 %; HCT 35.5 % (39.0-53.0); HGB 11.4 gm/dL (13.0-17.5); Hypochromasia Slight; Lymphocytes # (A) 0.5 k/uL (1.0-4.8); Lymphocytes % (A) 4 %; MCHC 32.1 g/dL (31.0-37.0); MCV 90.3 fL (80.0-100.0); Mean Platelet Volume 7.6; Monocytes # (A) 0.4 k/uL (0-1.0); Monocytes % (A) 4 %; Neutrophils # (A) 11.3 k/uL (1.3-7.7); Neutrophils % (A) 92 %; Platelet Count 164 k/uL (150-450); RBC 3.93 m/uL (4.30-5.90); RDW 16.4 % (11.5-15.5); WBC 12.3 k/uL (3.8-10.6)
[2017-12-24 06:55] LABS: Anion Gap 12 mmol/L; Blood Urea Nitrogen 30 mg/dL (9-20); Calcium 8.8 mg/dL (8.4-10.2); Carbon Dioxide 32 mmol/L (22-30); Chloride 92 mmol/L (98-107); Glucose 287 mg/dL (74-99); Potassium 4.5 mmol/L (3.5-5.1); Sodium 136 mmol/L (137-145)
[2017-12-24] MEDS: INSULIN ASPART 100 UNIT/ML 1 ML 10 ML VIAL SQ SCH ×4 (07:03→12:25)
[2017-12-24] MEDS: IPRATROPIUM-ALBUTEROL 3 ML NEB INHALATION SCH ×3 (08:46→16:03)
[2017-12-24] MEDS: ATORVASTATIN 20 MG TAB PO SCH (08:50)
[2017-12-24] MEDS: LISINOPRIL 2.5 MG TAB PO SCH (08:50)
[2017-12-24] MEDS: SPIRONOLACTONE 25 MG TAB PO SCH (08:50)
[2017-12-24] MEDS: HEPARIN SODIUM,PORCINE 5,000 UNIT/ML 1 ML VIAL SQ SCH (08:50)
[2017-12-24] MEDS: NICOTINE 14MG/24HR PATCH TRANSDERM SCH (08:50)
[2017-12-24] MEDS: METOPROLOL SUCCINATE (ER) 100 MG TAB.ER.24H PO SCH (08:50)
[2017-12-24] MEDS ORDERED: ASPIRIN 81 MG PO SCH (09:00)
[2017-12-24 10:43] VITALS: RESP 20
--- NOTE | 2017-12-24 11:37 | P.PN ---
Subjective Progress Note Date: 12/24/17 This is a 62-year-old gentleman who follows regularly with Dr. Birmingham in the office. He has a known history of systolic congestive heart failure, coronary artery disease with prior bypass surgery, ischemic cardio myopathy with an ejection fraction documented less than 20%, prior AICD implantation, advanced COPD, atrial tachycardia, diabetes, pulmonary hypertension, nicotine dependence, and daily EtOH use of up to 12 alcoholic beverages today. Patient was recently in the hospital for a COPD exacerbation and heart failure exacerbation. Went home and states overall he was feeling well. Just prior to his mission here, patient noticed that he had significant bilateral lower extremity swelling which seemed to come on all of a sudden. As stated patient does drink up to 12 alcoholic beverages per day and drinks about 2 bottles of water per day. His EKG on admission here shows an atrial sensed V paced rhythm. Chest x-ray did not reveal any evidence of acute pulmonary disease. Cervical spine x-ray did not reveal any evidence of fracture or dislocation. The pressure on arrival 128/60 with heart rate in the 80s, 96% on room air. White blood cell count 8.9, hemoglobin 11.2, platelet count 150. D-dimer 0.5. Sodium 134, potassium 4.3, BUN 25, creatinine 0.9. BNP level 6790. Magnesium 1.3. Troponin 0.03, 0.03, 0.03. Patient was initiated on IV Lasix in the emergency room, weight is down 2 kg today. At the time of my examination this morning, patient states that his swelling is most completely gone compared to what hes used too.. He does have significant wheezing which she states is normal for him. 12/24/2017 Patient was seen and examined this morning, he diuresed well through the night last night. His weight is down 1 kg today. Blood pressure 104/60 with a heart rate in the 70s. White blood cell count 12.3, hemoglobin 11.4, platelet count 164. Sodium 136, potassium 4.5, BUN 39, creatinine 0.9. Patient feels well this morning, states he feels like his normal self. From cardiology's perspective, he may be able to be discharged home once cleared by primary. We will make him a follow-up appointment in the office post discharge. Objective - Vital Signs Vital signs: Vital Signs Temp 96.8 F L 12/24/17 08:00 Pulse 72 12/24/17 08:57 Resp 20 12/24/17 08:00 BP 104/65 12/24/17 08:00 Pulse Ox 96 12/24/17 08:00 Intake & Output 12/23/17 12/24/17 12/24/17 18:59 06:59 18:59 Intake Total 748.825 160 240 Output Total 1700 925 Balance -951.175 160 -685 Weight 110.8 kg 109.6 kg Intake: Intake, IV Titration 28.825 160 Amount Insulin Regular 100 unit 23.320 In Sodium Chloride 0.9% 100 ml @ 0.1 UNITS/KG/HR 11.4 mls/hr IV .Q8H52M [facility] Rx#:[id number] Insulin Regular 100 unit 5.505 In Sodium Chloride 0.9% 100 ml @ Titrate IV .Q0M [facility]O Rx#:[id number] Sodium Chloride 0.9% 1, 160 000 ml @ 20 mls/hr IV . Q24H [facility] Rx#:[id number] Oral 720 240 Output: Urine 1700 925 Other: Voiding Method Urinal Urinal # Voids 1 - Exam GENERAL: HEENT: Head is atraumatic, normocephalic. Pupils equal, round. Sclera anicteric. Conjunctiva are clear. Mucous membranes of the mouth are moist. Neck is supple. There is no elevated jugular venous pressure.] bruit is heard. HEART EXAMINATION: Heart S1 and S2 systolic murmur is heard. CHEST EXAMINATION: Lungs clear to auscultation ABDOMEN: Soft, nontender. Bowel sounds are heard. No organomegaly noted. EXTREMITIES: 2+ peripheral pulses with no evidence of peripheral edema, left leg more than the right leg, no calf tenderness noted. NEUROLOGIC patient is awake, alert and oriented -3. . - Labs CBC & Chem 7: 12/24/17 05:59 12/24/17 05:59 Labs: Abnormal Lab Results - Last 24 Hours (Table) 12/23/17 12/23/17 12/23/17 Range/Units 11:47 14:02 15:35 WBC (3.8-10.6) k/uL RBC (4.30-5.90) m/uL Hgb (13.0-17.5) gm/dL Hct (39.0-53.0) % RDW (11.5-15.5) % Neutrophils # (1.3-7.7) k/uL Lymphocytes # (1.0-4.8) k/uL Sodium 136 L (137-145) mmol/L Chloride 93 L (98-107) mmol/L Carbon Dioxide (22-30) mmol/L BUN 26 H (9-20) mg/dL Glucose 136 H (74-99) mg/dL POC Glucose (mg/dL) 253 H 230 H (75-99) mg/dL Total Bilirubin 2.1 H (0.2-1.3) mg/dL Total Protein 6.2 L (6.3-8.2) g/dL 12/23/17 12/23/17 12/23/17 Range/Units 16:31 18:11 18:23 WBC (3.8-10.6) k/uL RBC (4.30-5.90) m/uL Hgb (13.0-17.5) gm/dL Hct (39.0-53.0) % RDW (11.5-15.5) % Neutrophils # (1.3-7.7) k/uL Lymphocytes # (1.0-4.8) k/uL Sodium (137-145) mmol/L Chloride (98-107) mmol/L Carbon Dioxide (22-30) mmol/L BUN (9-20) mg/dL Glucose (74-99) mg/dL POC Glucose (mg/dL) 142 H 143 H 155 H (75-99) mg/dL Total Bilirubin (0.2-1.3) mg/dL Total Protein (6.3-8.2) g/dL 12/23/17 12/23/17 12/24/17 Range/Units 20:03 21:09 05:59 WBC 12.3 H (3.8-10.6) k/uL RBC 3.93 L (4.30-5.90) m/uL Hgb 11.4 L (13.0-17.5) gm/dL Hct 35.5 L (39.0-53.0) % RDW 16.4 H (11.5-15.5) % Neutrophils # 11.3 H (1.3-7.7) k/uL Lymphocytes # 0.5 L (1.0-4.8) k/uL Sodium (137-145) mmol/L Chloride (98-107) mmol/L Carbon Dioxide (22-30) mmol/L BUN (9-20) mg/dL Glucose (74-99) mg/dL POC Glucose (mg/dL) 117 H 109 H (75-99) mg/dL Total Bilirubin (0.2-1.3) mg/dL Total Protein (6.3-8.2) g/dL 12/24/17 12/24/17 Range/Units 05:59 06:19 WBC (3.8-10.6) k/uL RBC (4.30-5.90) m/uL Hgb (13.0-17.5) gm/dL Hct (39.0-53.0) % RDW (11.5-15.5) % Neutrophils # (1.3-7.7) k/uL Lymphocytes # (1.0-4.8) k/uL Sodium 136 L (137-145) mmol/L Chloride 92 L (98-107) mmol/L Carbon Dioxide 32 H (22-30) mmol/L BUN 30 H (9-20) mg/dL Glucose 287 H (74-99) mg/dL POC Glucose (mg/dL) 332 H (75-99) mg/dL Total Bilirubin (0.2-1.3) mg/dL Total Protein (6.3-8.2) g/dL Assessment and Plan Plan: Assessment and plan #1 systolic congestive heart failure acute on chronic #2 ischemic cardio myopathy with prior AICD implantation #3 COPD exacerbation #4 known history of coronary artery disease and prior bypass surgery #5 diabetes #6 hypertension #7 hyperlipidemia #8 nicotine dependence #9 EtOH use of up to 12 alcoholic beverages per day #10 hypomagnesemia, replaced #11 abnormal troponins, not consistent with acute coronary syndrome, likely secondary to supply and demand mismatch Plan Patient had an echocardiogram with Doppler study performed in September of this year which revealed an ejection fraction of less than 20%, we will not repeat an echo on this admission. We will discontinue the IV Lasix and start the patient back on oral diuretics today. He may be able to be discharged home once cleared by primary. We will make him a follow-up appointment in the office post discharge. DNP note has been reviewed, I agree with a documented findings and plan of care. Patient was seen and examined.
[2017-12-24 11:43] LABS: Glucose,Whole Blood 176 mg/dL (75-99)
--- NOTE | 2017-12-24 12:17 | P.PN ---
Subjective Progress Note Date: 12/24/17 Principal diagnosis: Acute on chronic hypoxic respiratory failure secondary to an acute exacerbation of chronic systolic congestive heart failure with lower extremity edema. This is a very pleasant 62-year-old gentleman follows with Dr. Merritt is his primary care physician. He has a medical history of obesity, diabetes mellitus , hypertension, hyperlipidemia, coronary artery disease with previous coronary artery bypass grafting, ischemic cardio myopathy with ejection fraction less than 20% status post ICD placement. He also has chronic and ongoing 45 year smoking history and chronic obstructive pulmonary disease with an FEV1 value of 40% of predicted. He also has obstructive sleep apnea with an AHI of 24 and has been mainly noncompliant with CPAP in the past. He does have home oxygen therapy utilizes for nocturnal dyspnea and desaturations and throughout the day as needed. He follows with Dr. Iraheta in our office for the same. The patient does admit to drinking 6-8 beers a day and excessive water intake. He presented here to the emergency room yesterday after taking a shower and noting increased lower extremity peripheral edema. His chest x-ray shows evidence of COPD but no overt heart failure. ProBNP level was 6790. He was initiated on IV diuretics 40 mg every 8 hours and his lower extremity peripheral edema is much improved today. He is currently obtaining good O2 saturations in the upper 90s on room air. He's been afebrile. Hemodynamically stable. White count 8.9. Hemoglobin 11.2. Creatinine 0.90. The patient is seen again today 12/24/2017 in follow-up on the selective care unit. He is currently sitting up in a chair at the bedside. He is awake and alert in no acute distress. He denies any worsening shortness of breath, cough or congestion. His lower extremity peripheral edema has improved significantly. Nearly back to baseline. He is maintaining good O2 saturations in the 90s on room air. His been afebrile. No tachycardia. No tachypnea. Hemodynamically stable. He remains in a negative balance. Creatinine 0.99. Objective - Vital Signs Vital signs: Vital Signs Temp 96.8 F L 12/24/17 08:00 Pulse 72 12/24/17 08:57 Resp 20 12/24/17 08:00 BP 104/65 12/24/17 08:00 Pulse Ox 96 12/24/17 08:00 Intake & Output 12/23/17 12/24/17 12/24/17 18:59 06:59 18:59 Intake Total 748.825 160 240 Output Total 1700 925 Balance -951.175 160 -685 Weight 110.8 kg 109.6 kg Intake: Intake, IV Titration 28.825 160 Amount Insulin Regular 100 unit 23.320 In Sodium Chloride 0.9% 100 ml @ 0.1 UNITS/KG/HR 11.4 mls/hr IV .Q8H52M [facility] Rx#:[id number] Insulin Regular 100 unit 5.505 In Sodium Chloride 0.9% 100 ml @ Titrate IV .Q0M [facility] Rx#:[id number] Sodium Chloride 0.9% 1, 160 000 ml @ 20 mls/hr IV . Q24H [facility] Rx#:[id number] Oral 720 240 Output: Urine 1700 925 Other: Voiding Method Urinal Urinal # Voids 1 - Exam - Constitutional General appearance: obese - EENT Eyes: EOMI, PERRLA ENT: hearing grossly normal Ears: bilateral: normal - Neck Neck: normal ROM Carotids: bilateral: upstroke normal Thyroid: bilateral: normal size - Respiratory Respiratory: bilateral: CTA, diminished - Cardiovascular Rhythm: regular Heart sounds: normal: S1, S2 Abnormal Heart Sounds: systolic murmur - Gastrointestinal General gastrointestinal: normal bowel sounds - Integumentary Integumentary: normal turgor - Neurologic Neurologic: CNII-XII intact - Musculoskeletal Musculoskeletal: generalized weakness - Psychiatric Psychiatric: A&O x's 3 - Labs CBC & Chem 7: 12/24/17 05:59 12/24/17 05:59 Labs: Abnormal Lab Results - Last 24 Hours (Table) 12/23/17 12/23/17 12/23/17 Range/Units 14:02 15:35 16:31 WBC (3.8-10.6) k/uL RBC (4.30-5.90) m/uL Hgb (13.0-17.5) gm/dL Hct (39.0-53.0) % RDW (11.5-15.5) % Neutrophils # (1.3-7.7) k/uL Lymphocytes # (1.0-4.8) k/uL Sodium 136 L (137-145) mmol/L Chloride 93 L (98-107) mmol/L Carbon Dioxide (22-30) mmol/L BUN 26 H (9-20) mg/dL Glucose 136 H (74-99) mg/dL POC Glucose (mg/dL) 230 H 142 H (75-99) mg/dL Total Bilirubin 2.1 H (0.2-1.3) mg/dL Total Protein 6.2 L (6.3-8.2) g/dL 12/23/17 12/23/17 12/23/17 Range/Units 18:11 18:23 20:03 WBC (3.8-10.6) k/uL RBC (4.30-5.90) m/uL Hgb (13.0-17.5) gm/dL Hct (39.0-53.0) % RDW (11.5-15.5) % Neutrophils # (1.3-7.7) k/uL Lymphocytes # (1.0-4.8) k/uL Sodium (137-145) mmol/L Chloride (98-107) mmol/L Carbon Dioxide (22-30) mmol/L BUN (9-20) mg/dL Glucose (74-99) mg/dL POC Glucose (mg/dL) 143 H 155 H 117 H (75-99) mg/dL Total Bilirubin (0.2-1.3) mg/dL Total Protein (6.3-8.2) g/dL 12/23/17 12/24/17 12/24/17 Range/Units 21:09 05:59 05:59 WBC 12.3 H (3.8-10.6) k/uL RBC 3.93 L (4.30-5.90) m/uL Hgb 11.4 L (13.0-17.5) gm/dL Hct 35.5 L (39.0-53.0) % RDW 16.4 H (11.5-15.5) % Neutrophils # 11.3 H (1.3-7.7) k/uL Lymphocytes # 0.5 L (1.0-4.8) k/uL Sodium 136 L (137-145) mmol/L Chloride 92 L (98-107) mmol/L Carbon Dioxide 32 H (22-30) mmol/L BUN 30 H (9-20) mg/dL Glucose 287 H (74-99) mg/dL POC Glucose (mg/dL) 109 H (75-99) mg/dL Total Bilirubin (0.2-1.3) mg/dL Total Protein (6.3-8.2) g/dL 12/24/17 12/24/17 Range/Units 06:19 11:17 WBC (3.8-10.6) k/uL RBC (4.30-5.90) m/uL Hgb (13.0-17.5) gm/dL Hct (39.0-53.0) % RDW (11.5-15.5) % Neutrophils # (1.3-7.7) k/uL Lymphocytes # (1.0-4.8) k/uL Sodium (137-145) mmol/L Chloride (98-107) mmol/L Carbon Dioxide (22-30) mmol/L BUN (9-20) mg/dL Glucose (74-99) mg/dL POC Glucose (mg/dL) 332 H 176 H (75-99) mg/dL Total Bilirubin (0.2-1.3) mg/dL Total Protein (6.3-8.2) g/dL Assessment and Plan Assessment: Impression: #1 Acute on chronic hypoxic respiratory failure secondary to an acute exacerbation of chronic systolic congestive heart failure with lower extremity edema. #2 Acute on chronic hypercapnic respiratory failure secondary to COPD exacerbation. #3 Chronic and ongoing tobacco dependence. #4 Chronic and ongoing alcohol dependence. #5 Obstructive sleep apnea with an AHI of 24, noncompliant with CPAP in the past. #6 Coronary artery disease with previous coronary artery bypass grafting. #7 Ischemic cardiomyopathy with an ejection fraction 20%, status post AICD placement. #8 Obesity. #9 Diabetes mellitus. #10 Hypertension. #11 Hyperlipidemia. #12 Osteoarthritis. Plan: The patient was seen and evaluated by Dr. Walker. Vision is stable from the pulmonary standpoint and could be discharged home once cleared by cardiology. Tinea home pulmonary medications. Transition to a prednisone taper starting at 30 mg daily for 3 days, 20 mg for 3 days him a 10 mg for 3 days. Follow-up in our office in 1-2 weeks' time. He is however encouraged to call sooner if any recurrence of symptoms or other questions or concerns. He is again educated regarding the importance of complete smoking cessation and alcohol abstinence. I, the cosigning physician, performed a history & physical examination of the patient. Lungs sounds are clear. Diminished. Maintaining good O2 saturations in the 90s on room air. I discussed the assessment and plan of care with my nurse practitioner, Narcisa Graham. I attest to the above consultation as dictated by her.
[2017-12-24 13:01] VITALS: BP 111/67; TEMP 96.9
[2017-12-24] MEDS ORDERED: FUROSEMIDE 80 MG TAB PO SCH (16:00)
[2017-12-24 16:17] VITALS: PULSE 68
--- NOTE | 2017-12-25 04:07 | DS ---
DISCHARGE SUMMARY DATE OF SERVICE: 12/24/2017. FINAL DIAGNOSES: 1. Congestive heart failure acute exacerbation, acute on chronic systolic dysfunction, ejection fraction less than 20%. 2. Possible ischemic cardiomyopathy. 3. Chronic obstructive pulmonary disease, acute exacerbation. 4. Hyponatremia. 5. Hypomagnesemia. 6. Diabetes type 2 uncontrolled with hyperglycemia. 7. History of coronary artery disease/coronary artery bypass grafting. 8. Hyperlipidemia. 9. History of degenerative joint disease. 10.History of chronic hypoxic respiratory failure on home O2 2.5 L oxygen. 11.Obstructive sleep apnea. DISCHARGE DISPOSITION: The patient is being discharged in stable condition with guarded prognosis. HISTORY OF PRESENT ILLNESS: This 62-year-old gentleman with a past medical history of multiple medical problems, was admitted with CHF acute exacerbation, treated with diuretics. The patient also has COPD. Bronchodilators also given. Medication adjusted. Sugars elevated. Insulin drip was used. The patient improved significantly. Patient will be discharged in stable condition with the following advice and medications: 1. Diet is cardiac diet. 2. Activity limited until followup. 3. Follow up with Dr. Merritt in 2-3 days. 4. Follow up with Cardiology and Pulmonology as advised. MEDICATIONS: 1. Ecotrin 81 mg p.o. daily. 2. Lipitor 20 mg daily. 3. Lasix 60 mg p.o. b.i.d. 4. Lantus 10 units subcu q.h.s. Accu-Cheks a.c., results to Dr. Merritt. 5. DuoNeb q.i.d. and p.r.n. 6. Zestril 2.5 mg daily. 7. Glucophage 500 mg p.o. b.i.d. 8. Toprol-XL 100 mg p.o. daily. 9. Habitrol 1 patch daily. 10.No smoking. 11.Aldactone 25 mg p.o. daily. MMODL / IJN: [id number] /
== END 2017-12-24 16:25 | disposition home or self-care (01) | DRG 291 ==
LOC: EC 10:45 → 6SEL 13:18 → EC 13:18 → 6SEL 13:18
PROVIDERS: ADMIT Hospitalist; ATTEND Hospitalist
DX: I11.0 Hypertensive heart disease with heart failure (principal); J96.22 Acute and chronic respiratory failure with hypercapnia; J96.21 Acute and chronic respiratory failure with hypoxia; E87.1 Hypo-osmolality and hyponatremia; J44.1 Chronic obstructive pulmonary disease with (acute) exacerbation; E78.5 Hyperlipidemia, unspecified; E83.42 Hypomagnesemia; F10.20 Alcohol dependence, uncomplicated; F17.200 Nicotine dependence, unspecified, uncomplicated; G47.33 Obstructive sleep apnea (adult) (pediatric); Z91.19 Patient's noncompliance with other medical treatment and regimen; I25.10 Atherosclerotic heart disease of native coronary artery without angina pectoris; I25.2 Old myocardial infarction; I25.5 Ischemic cardiomyopathy; I27.20 Pulmonary hypertension, unspecified; I50.23 Acute on chronic systolic (congestive) heart failure; E66.9 Obesity, unspecified; E11.65 Type 2 diabetes mellitus with hyperglycemia; M19.90 Unspecified osteoarthritis, unspecified site; Z79.82 Long term (current) use of aspirin; Z79.84 Long term (current) use of oral hypoglycemic drugs; Z79.899 Other long term (current) drug therapy; Z82.49 Family history of ischemic heart disease and other diseases of the circulatory system; Z95.1 Presence of aortocoronary bypass graft; Z95.810 Presence of automatic (implantable) cardiac defibrillator; Z99.81 Dependence on supplemental oxygen; Z88.8 Allergy status to other drugs, medicaments and biological substances; Z88.1 Allergy status to other antibiotic agents; Z91.040 Latex allergy status; R74.8 Abnormal levels of other serum enzymes; Z68.32 Body mass index [BMI] 32.0-32.9, adult; R53.1 Weakness; Z71.41 Alcohol abuse counseling and surveillance of alcoholic; Z71.6 Tobacco abuse counseling; Z91.048 Other nonmedicinal substance allergy status; Z80.9 Family history of malignant neoplasm, unspecified; Z86.79 Personal history of other diseases of the circulatory system
CPT/HCPCS: 36415; 71046; 72050; 80048; 80053; 81003; 82550; 82553; 83036; 83735; 83880; 84100; 84484; 85025; 85379; 85610; 85730; 93005; 94640; 96365; 96375; 99285

== ENCOUNTER 2018-02-02 23:29 | Inpatient (IN) | payer MEDICARE ==
[2018-02-02] MEDS ORDERED: ALBUTEROL NEBULIZED 2.5 MG/3 ML INHALATION STA (23:43)
[2018-02-02] MEDS ORDERED: IPRATROPIUM 0.5 MG/2.5 ML NEBU INHALATION STA (23:43)
[2018-02-02 23:52] LABS: Anisocytosis Slight; Basophils # (A) 0.1 k/uL (0-0.2); Basophils % (A) 1 %; Eosinophils # (A) 0.1 k/uL (0-0.7); Eosinophils % (A) 2 %; HCT 34.1 % (39.0-53.0); HGB 10.9 gm/dL (13.0-17.5); Hypochromasia Slight; Lymphocytes # (A) 1.1 k/uL (1.0-4.8); Lymphocytes % (A) 16 %; MCH 27.9 pg (25.0-35.0); MCHC 31.8 g/dL (31.0-37.0); MCV 87.6 fL (80.0-100.0); Mean Platelet Volume 8.5; Monocytes # (A) 0.5 k/uL (0-1.0); Monocytes % (A) 7 %; Neutrophils # (A) 5.3 k/uL (1.3-7.7); Neutrophils % (A) 73 %; Platelet Count 180 k/uL (150-450); RBC 3.89 m/uL (4.30-5.90); WBC 7.2 k/uL (3.8-10.6)
[2018-02-03 00:03] LABS: Calcium 9.2 mg/dL (8.4-10.2); Potassium 3.6 mmol/L (3.5-5.1)
[2018-02-03 00:55] LABS: VBG PH 7.41 (7.31-7.41)
[2018-02-03] MEDS ORDERED: DEXAMETHASONE 4 MG TAB PO STA (01:45)
[2018-02-03] MEDS ORDERED: AZITHROMYCIN 500 MG TAB PO STA (01:46)
[2018-02-03] MEDS ORDERED: NALOXONE 0.4 MG/ML 1 ML VIAL IV PRN (01:49)
[2018-02-03] MEDS ORDERED: HYDROcodone/APAP 5-325MG 1 EACH TAB PO STA (01:51)
--- NOTE | 2018-02-03 01:53 | XR ---
EXAMINATION TYPE: XR chest 2V DATE OF EXAM: 02/03/2018 COMPARISON: 12/22/2017 HISTORY: Ischemic cardiomyopathy difficulty breathing TECHNIQUE: Frontal and lateral views of the chest are obtained. FINDINGS: Heart is enlarged. There is no gross heart failure. Costophrenic angles are clear. There a re sternal wires. There is left x-ray pacemaker with the lead tips in the right ventricle. Bony thora x is intact. IMPRESSION: Cardiomegaly. No active cardiopulmonary disease. No heart failure. No change.
--- NOTE | 2018-02-03 01:56 | ED ---
General Adult HPI - General Chief complaint: Shortness of Breath Stated complaint: SOB Source: patient, EMS Mode of arrival: EMS Limitations: no limitations - History of Present Illness Initial comments: Dictation was produced using [employer] dictation software. please excuse any grammatical, word or spelling errors. Chief Complaint: 62-year-old male past medical history of COPD presents with difficulty breathing. History of Present Illness: 62-year-old male past medical history of COPD, coronary artery disease, dyslipidemia presents with difficulty in breathing. Patient cc been short of breath for the past couple days. Patient denies any constitutional symptoms no fever or productive cough. Patient denies any chest pain at this time. Patient is unsure what triggered his COPD this time. Denies any weight gain. Patient reports that he is on supplemental oxygen however only overnight when he is asleep. Past Medical History: Coronary artery disease, chest pain, heart failure, COPD, as well as, hyperlipidemia Past Surgical History: AICD, CABG, pacemaker Social History: Current every day smoker Family History: reviewed and noncontributory The ROS documented in this emergency department record has been reviewed and confirmed by me. Those systems with pertinent positive or negative responses have been documented in the HPI. All other systems are other negative and/or noncontributory. - Related Data Home Medications Medication Instructions Recorded Confirmed Atorvastatin [Lipitor] 20 mg PO DAILY 05/18/16 02/03/18 Metoprolol Succinate [Toprol XL] 100 mg PO DAILY 05/28/17 02/03/18 Aspirin [Adult Low Dose Aspirin EC] 81 mg PO DAILY 09/11/17 02/03/18 Spironolactone [Aldactone] 25 mg PO DAILY 09/11/17 02/03/18 Furosemide [Lasix] 60 mg PO BID 12/14/17 02/03/18 Albuterol Inhaler [Ventolin Hfa 2 puff INHALATION RT-Q4H PRN 02/03/18 02/03/18 Inhaler] Previous Rx's Medication Instructions Recorded Lisinopril [Zestril] 2.5 mg PO DAILY #30 tab 09/16/17 Insulin Glargine [Lantus] 20 unit SQ HS #1 vial 12/24/17 Ipratropium-Albuterol Nebulize 3 ml INHALATION RT-QID #120 12/24/17 [Duoneb 0.5 mg-3 mg/3 ml Soln] ampul.neb metFORMIN HCL [Glucophage] 500 mg PO BID #60 tab 12/24/17 Allergies Allergy/AdvReac Type Severity Reaction Status Date / Time Latex, Natural Rubber Allergy Rash/Hives Verified 02/03/18 08:11 levofloxacin [From Levaquin] Allergy Rash/Hives Verified 02/03/18 08:11 mold Allergy Rash/Hives Verified 02/03/18 08:11 prednisone Allergy Rash/Hives Verified 02/03/18 08:11 STEROIDS Allergy Rash/Hives Uncoded 02/02/18 23:34 Review of Systems ROS Statement: Those systems with pertinent positive or pertinent negative responses have been documented in the HPI. ROS Other: All systems not noted in ROS Statement are negative. Past Medical History Past Medical History: Coronary Artery Disease (CAD), Chest Pain / Angina, Heart Failure, COPD, Diabetes Mellitus, Hyperlipidemia, Myocardial Infarction ([place]), Osteoarthritis (OA) Additional Past Medical History / Comment(s): Coronary artery disease with a previous bypass surgery, ischemic cardiomyopathy with ejection fraction of less than 20%,HOME 02 2-2.5 LITERS AT HS, COPD, obstructive sleep apnea with an AHI of 24 currently on auto CPAP unit, obesity, hypertension, AICD placement for ischemic cardiomyopathy, Cardiomyopathy, osteoarthritis, diabetes mellitus, hyperlipidemia, hypertension. Last Myocardial Infarction Date:: UNSURE History of Any Multi-Drug Resistant Organisms: None Reported Past Surgical History: AICD, Coronary Bypass/CABG, Heart Catheterization, Orthopedic Surgery Additional Past Surgical History / Comment(s): Pacemaker and AICD- 10/2013, CABG 1 vessel many yrs ago per pt, BILATERAL SHOULDER SURGERY , steel alcides in leg from fracture, bilat shoulders Past Anesthesia/Blood Transfusion Reactions: No Reported Reaction Type of Cardiac Device: Permanent Pacemaker, AICD Device Placement Date:: Past Psychological History: No Psychological Hx Reported Smoking Status: Current every day smoker Past Alcohol Use History: Occasional Past Drug Use History: None Reported - Past Family History Mother History Unknown: Yes Father Family Medical History: Myocardial Infarction ([place]) Additional Family Medical History / Comment(s): Father of a [place] at the age of 56yrs. Brother(s) Family Medical History: Cancer General Exam - General Exam Comments Initial Comments: Vitals: Vital signs upon arrival are within acceptable limits. PHYSICAL EXAM: General Impression: Alert and oriented x3, respiratory distress with pursed lips HEENT: Normocephalic atraumatic, extra-ocular movements intact, pupils equal and reactive to light bilaterally, mucous membranes moist. Cardiovascular: Heart regular rate and rhythm, S1&S2 audible, no murmurs, rubs or gallops Chest: Diffuse lung wheezing Abdomen: Bowel sounds present, abdomen soft, non-tender, non-distended, no organomegaly Musculoskeletal: Pulses present and equal in all extremities, no peripheral edema Motor: Power 5/5 bilaterally, no focal deficits noted Neurological: CN II-XII grossly intact, no focal motor or sensory deficits noted Skin: Intact with no visualized rashes Psych: Normal affect and mood Limitations: no limitations Course Vital Signs 02/02/18 02/02/18 02/03/18 23:30 23:52 00:02 Temperature 96.9 F L Pulse Rate 70 70 72 Respiratory 18 18 18 Rate Blood Pressure 131/63 O2 Sat by Pulse 97 Oximetry 02/03/18 02/03/18 02/03/18 00:15 00:30 00:35 Temperature Pulse Rate 70 74 Respiratory 18 22 18 Rate Blood Pressure O2 Sat by Pulse Oximetry 02/03/18 02/03/18 00:48 01:40 Temperature Pulse Rate 70 70 Respiratory 22 18 Rate Blood Pressure 142/83 141/87 O2 Sat by Pulse 98 98 Oximetry Medical Decision Making - Medical Decision Making ED course: 32-year-old male past medical history of COPD, coronary artery disease presents with dyspnea. Clinical presentation consistent with COPD exacerbation. Vital signs upon arrival are within acceptable limits. Physical exam is positive for respiratory distress and bilateral wheezing. Laboratory evaluation obtained. CBC is unremarkable. Blood gases negative. Basic metabolic panel is within normal limits. EKG shows paced rhythm. Patient given breathing treatment and corticosteroids and first dose of azithromycin. Patient reevaluated after breathing treatment and patient reports improved symptoms. This point there is no clinical suspicion of cardiac wheeze. Chest x-ray was unremarkable. Given degree of respiratory distress we will admit patient to hospital. EKG interpretation: Ventricular rate 70. Pacemaker rhythm. No MT prolongation , no QTC prolongation, no ST or T-wave changes noted. No signs of ischemia per sgarbossa criteria. Overall, this EKG is unremarkable - Lab Data Result diagrams: 02/05/18 06:36 02/05/18 06:36 Lab Results 02/02/18 02/02/18 02/02/18 Range/Units 23:34 23:34 23:34 WBC 7.2 (3.8-10.6) k/uL RBC 3.89 L (4.30-5.90) m/uL Hgb 10.9 L (13.0-17.5) gm/dL Hct 34.1 L (39.0-53.0) % MCV 87.6 (80.0-100.0) fL MCH 27.9 (25.0-35.0) pg MCHC 31.8 (31.0-37.0) g/dL RDW 17.0 H (11.5-15.5) % Plt Count 180 (150-450) k/uL Neutrophils % 73 % Lymphocytes % 16 % Monocytes % 7 % Eosinophils % 2 % Basophils % 1 % Neutrophils # 5.3 (1.3-7.7) k/uL Lymphocytes # 1.1 (1.0-4.8) k/uL Monocytes # 0.5 (0-1.0) k/uL Eosinophils # 0.1 (0-0.7) k/uL Basophils # 0.1 (0-0.2) k/uL Hypochromasia Slight Anisocytosis Slight VBG pH (7.31-7.41) VBG pCO2 (37-51) mmHg VBG HCO3 (24-28) mmol/L Sodium 139 (137-145) mmol/L Potassium 3.6 (3.5-5.1) mmol/L Chloride 98 (98-107) mmol/L Carbon Dioxide 28 (22-30) mmol/L Anion Gap 13 mmol/L BUN 24 H (9-20) mg/dL Creatinine 1.10 (0.66-1.25) mg/dL Est GFR (CKD-EPI)AfAm 83 (>60 ml/min/1.73 sqM) Est GFR (CKD-EPI)NonAf 72 (>60 ml/min/1.73 sqM) Glucose 136 H (74-99) mg/dL Estimated Ave Glu mg/dL 148 Hemoglobin A1c 6.8 H (4.0-6.0) % Calcium 9.2 (8.4-10.2) mg/dL 07/06/18 Range/Units 00:47 WBC (3.8-10.6) k/uL RBC (4.30-5.90) m/uL Hgb (13.0-17.5) gm/dL Hct (39.0-53.0) % MCV (80.0-100.0) fL MCH (25.0-35.0) pg MCHC (31.0-37.0) g/dL RDW (11.5-15.5) % Plt Count (150-450) k/uL Neutrophils % % Lymphocytes % % Monocytes % % Eosinophils % % Basophils % % Neutrophils # (1.3-7.7) k/uL Lymphocytes # (1.0-4.8) k/uL Monocytes # (0-1.0) k/uL Eosinophils # (0-0.7) k/uL Basophils # (0-0.2) k/uL Hypochromasia Anisocytosis VBG pH 7.41 (7.31-7.41) VBG pCO2 47 (37-51) mmHg VBG HCO3 29 H (24-28) mmol/L Sodium (137-145) mmol/L Potassium (3.5-5.1) mmol/L Chloride (98-107) mmol/L Carbon Dioxide (22-30) mmol/L Anion Gap mmol/L BUN (9-20) mg/dL Creatinine (0.66-1.25) mg/dL Est GFR (CKD-EPI)AfAm (>60 ml/min/1.73 sqM) Est GFR (CKD-EPI)NonAf (>60 ml/min/1.73 sqM) Glucose (74-99) mg/dL Estimated Ave Glu mg/dL Hemoglobin A1c (4.0-6.0) % Calcium (8.4-10.2) mg/dL Disposition Clinical Impression: COPD exacerbation Disposition: ADMITTED IP TO THIS HOSP Condition: Fair Time of Disposition: 01:56
[2018-02-03] MEDS: IPRATROPIUM-ALBUTEROL 3 ML NEB INHALATION SCH ×5 (02:30→20:04)
[2018-02-03 02:45] VITALS: BMI 33.9
[2018-02-03 07:02] LABS: Glucose,Whole Blood 168 mg/dL (75-99)
[2018-02-03] MEDS ORDERED: ALBUTEROL NEBULIZED 2.5 MG/3 ML INHALATION PRN (07:10)
[2018-02-03] MEDS ORDERED: NON-FORMULARY DRUG (Insulin Glargine 20 UNIT) SQ SCH (07:30)
[2018-02-03] MEDS: INSULIN ASPART 100 UNIT/ML 1 ML 10 ML VIAL SQ SCH ×4 (07:56→20:58)
[2018-02-03] MEDS: SPIRONOLACTONE 25 MG TAB PO SCH (08:10)
[2018-02-03] MEDS: metFORMIN 500 MG TAB PO SCH ×2 (08:10→20:59)
[2018-02-03] MEDS: METOPROLOL SUCCINATE (ER) 100 MG TAB.ER.24H PO SCH (08:10)
[2018-02-03] MEDS: LISINOPRIL 2.5 MG TAB PO SCH (08:10)
[2018-02-03] MEDS: ASPIRIN 81 MG PO SCH (08:10)
[2018-02-03] MEDS: ATORVASTATIN 20 MG TAB PO SCH (08:10)
[2018-02-03] MEDS: FUROSEMIDE 20 MG TAB PO SCH ×2 (08:10→15:34)
[2018-02-03] MEDS: HYDROcodone/APAP 5-325MG 1 EACH TAB PO PRN ×2 (10:14→15:35)
[2018-02-03 11:28] LABS: Glucose,Whole Blood 243 mg/dL (75-99)
--- NOTE | 2018-02-03 12:01 | P.CNPUL ---
History of Present Illness Consult date: 02/03/18 Reason for consult: dyspnea, cough, COPD, hypoxemia, abnormal CXR/CT, other Chief complaint: Shortness of breath with lower extremity edema History of present illness: Pulmonary consult dated 02/03/2018 This is a 62-year-old male with a history of COPD who comes into the emergency department complaining of increasing shortness of breath. It occurred for about 2 or 3 days prior to admission. The patient did have some cough but not producing any phlegm. No chest pain or chest discomfort. No fever or chills. No nausea vomiting or diarrhea. In addition, the patient complained of lower extremity edema. The patient has had multiple admissions to this hospital. He was just recently in the hospital for maybe about 3 or 4 weeks ago[address] He sees Dr. Iraheta in my office for his follow-up. He does have a history of CAD chest pain heart failure COPD hyperlipidemia and a previous history of AICD placement and bypass grafting. He continues to smoke cigarettes. Review of Systems A 12 point review of system is positive for shortness of breath difficulty breathing chest tightness wheezing cough as well as lower extremity edema. The patient continues to smoke cigarettes. He's had multiple admissions to this hospital for similar episodes one most recently maybe 3 or 4 weeks ago. Past Medical History Past Medical History: Coronary Artery Disease (CAD), Chest Pain / Angina, Heart Failure, COPD, Diabetes Mellitus, Hyperlipidemia, Myocardial Infarction ([place]), Osteoarthritis (OA) Additional Past Medical History / Comment(s): Coronary artery disease with a previous bypass surgery, ischemic cardiomyopathy with ejection fraction of less than 20%,HOME 02 2-2.5 LITERS AT HS, COPD, obstructive sleep apnea with an AHI of 24 currently on auto CPAP unit, obesity, hypertension, AICD placement for ischemic cardiomyopathy, Cardiomyopathy, osteoarthritis, diabetes mellitus, hyperlipidemia, hypertension. Last Myocardial Infarction Date:: UNSURE History of Any Multi-Drug Resistant Organisms: None Reported Past Surgical History: AICD, Coronary Bypass/CABG, Heart Catheterization, Orthopedic Surgery Additional Past Surgical History / Comment(s): Pacemaker and AICD- 10/2013, CABG 1 vessel many yrs ago per pt, BILATERAL SHOULDER SURGERY , steel alcides in leg from fracture, bilat shoulders Past Anesthesia/Blood Transfusion Reactions: No Reported Reaction Type of Cardiac Device: Permanent Pacemaker, AICD Device Placement Date:: Past Psychological History: No Psychological Hx Reported Additional Psychological History / Comment(s): Pt resides with his spouse. He has a walker at home but does not need to use it. He drives. He has a nebulizer, HOME 02 2-2.5 LITERS AT HS.. Smoking Status: Current every day smoker Past Alcohol Use History: Occasional Additional Past Alcohol Use History / Comment(s): STARTED SMOKING AT AGE 14- HAS CUT DOWN, CURRENTLY 1/2 pack a day Past Drug Use History: None Reported - Past Family History Mother History Unknown: Yes Father Family Medical History: Myocardial Infarction ([place]) Additional Family Medical History / Comment(s): Father of a [place] at the age of 56yrs. Brother(s) Family Medical History: Cancer Medications and Allergies Home Medications Medication Instructions Recorded Confirmed Type Atorvastatin [Lipitor] 20 mg PO DAILY 05/18/16 02/03/18 History Metoprolol Succinate [Toprol XL] 100 mg PO DAILY 05/28/17 02/03/18 History Aspirin [Adult Low Dose Aspirin EC] 81 mg PO DAILY 09/11/17 02/03/18 History Spironolactone [Aldactone] 25 mg PO DAILY 09/11/17 02/03/18 History Lisinopril [Zestril] 2.5 mg PO DAILY #30 tab 09/16/17 02/03/18 Rx Furosemide [Lasix] 60 mg PO BID 12/14/17 02/03/18 History Insulin Glargine [Lantus] 20 unit SQ HS #1 vial 12/24/17 02/03/18 Rx Ipratropium-Albuterol Nebulize 3 ml INHALATION RT-QID #120 12/24/17 02/03/18 Rx [Duoneb 0.5 mg-3 mg/3 ml Soln] ampul.neb metFORMIN HCL [Glucophage] 500 mg PO BID #60 tab 12/24/17 02/03/18 Rx Albuterol Inhaler [Ventolin Hfa 2 puff INHALATION RT-Q4H PRN 02/03/18 02/03/18 History Inhaler] Allergies Allergy/AdvReac Type Severity Reaction Status Date / Time Latex, Natural Rubber Allergy Rash/Hives Verified 02/03/18 08:11 levofloxacin [From Levaquin] Allergy Rash/Hives Verified 02/03/18 08:11 mold Allergy Rash/Hives Verified 02/03/18 08:11 prednisone Allergy Rash/Hives Verified 02/03/18 08:11 STEROIDS Allergy Rash/Hives Uncoded 02/02/18 23:34 Physical Exam Osteopathic Statement: *. No significant issues noted on an osteopathic structural exam other than those noted in the History and Physical/Consult. Vitals: Vital Signs Temp Pulse Pulse Resp BP BP Pulse Ox 02/03/18 11:21 76 02/03/18 11:10 76 02/03/18 07:28 72 02/03/18 07:18 72 02/03/18 05:40 97.8 F 66 16 112/66 96 02/03/18 02:46 76 02/03/18 02:31 74 18 02/03/18 02:30 97.6 F 69 18 116/75 98 02/03/18 02:18 98.3 F 70 18 151/98 99 02/03/18 01:40 70 18 141/87 98 02/03/18 00:48 70 22 142/83 98 02/03/18 00:35 74 18 02/03/18 00:30 22 02/03/18 00:15 70 18 02/03/18 00:02 72 18 02/02/18 23:52 70 18 02/02/18 23:30 96.9 F L 70 18 131/63 97 Intake and Output 02/02/18 02/03/18 02/03/18 22:59 06:59 14:59 Other: # Voids 1 Weight 114 kg No acute distress, oriented 3. Mildly short of breath. HEENT examination is grossly unremarkable. Mucous membranes are moist. No oral lesions. Neck supple. Full range of motion. No adenopathy thyromegaly or neck vein distention. Cardiovascular examination reveals regular rhythm rate. S1-S2 normal. No S3 or S4. No discernible murmur noted. Lungs reveal diffuse expiratory rhonchi and wheezes. Breath sounds are diminished. This prolongation. No crackles appreciated. Abdomen soft bowel sounds are heard. No masses or tenderness. Extremities reveal 1+ pitting edema. No clubbing or cyanosis appreciated. Skin reveals some mild chronic venous stasis changes to the lower extremities. Neurologic examination is brief but nonfocal. Results - Laboratory Findings CBC and BMP: 02/02/18 23:34 02/02/18 23:34 Abnormal lab findings: Abnormal Labs 02/02/18 02/02/18 02/03/18 23:34 23:34 00:47 RBC 3.89 L Hgb 10.9 L Hct 34.1 L RDW 17.0 H VBG HCO3 29 H BUN 24 H Glucose 136 H POC Glucose (mg/dL) 02/03/18 02/03/18 06:56 11:26 RBC Hgb Hct RDW VBG HCO3 BUN Glucose POC Glucose (mg/dL) 168 H 243 H - Diagnostic Findings Chest x-ray: report reviewed (Chest x-ray labs and medications are reviewed.), image reviewed Assessment and Plan Assessment: Assessment COPD exacerbation [place] by paratracheal bronchitis without bronchopneumonia Cor pulmonale with secondary pulmonary hypertension Ongoing tobacco use with nicotine addiction History of CAD, status post bypass grafting History of cardiomyopathy/CHF Diabetes mellitus by history Hyperlipidemia Myocardial infarction DJD History of sleep apnea syndrome Status post AICD placement Multiple additional medical problems and comorbidities Plan: Plan dated 02/03/2018 The patient will be placed on standard therapy for a COPD exacerbation. This will include short acting beta agonist, short acting muscarinic antagonist, long -acting beta agonist, inhaled corticosteroids, and systemic corticosteroids. In addition, an oral antibiotic would not be inappropriate for short course of treatment. The patient needs to be counseled again and again about the importance of smoking cessation. A nicotine patch should be helpful. Small doses of diuretics will help with the lower extremity edema. In addition, the patient should bring in his CPAP device we can we're here in the hospital. Additional recommendations and suggestions are forthcoming. Prognosis is guarded. Time with Patient: Greater than 30
[2018-02-03] MEDS ORDERED: IPRATROPIUM-ALBUTEROL 3 ML NEB INHALATION PRN (12:02)
--- NOTE | 2018-02-03 12:49 | CDI ---
Last Revision, July 2017 Documentation Clarification Form Date: 02/03/2018 12:38:00 PM From: Tesha Prery [facility], CCDS Admit Date: 02/03/2018 1:49:00 AM Patient Name: Edgar Colvin Visit Number: [id number] Discharge Date: ATTENTION: The Clinical Documentation Specialists (CDI) and [facility] Coding Staff appreciate your assistance in clarifying documentation. Please respond to the clarification below the line at the bottom and electronically sign. The CDI & [facility] Coding staff will review the response and follow-up if needed. Please note: Queries are made part of the Legal Health Record. If you have any questions, please contact the author of this message via ITS. Dr. Ritesh Walker: The patient presented with the following respiratory symptoms SOB, dyspnea with exertion, cough, wheezing & chest tightness. Documentation and location in medical record included: Respiratory distress is documented in the ED note. Hypoxemia is documented in your pulmonary consult. History/Risk Factors: COPD, CRYSTAL, Home O2 atc, Obesity, CAD, CHF w/hypertension & ischemic cardiomyopathy w/EF <20. Tobacco use: Current smoker. Clinical Indicators: Vital signs: RR 22 (sob) Pulse oximetry: 97 - 98 Lung/Breathing assessment: SOB, Accessory muscle use, labored, SOB w/activity. Blood Gas: HCO3 29 Treatment: Albuterol neb txs, po Zithromax, po Lasix, O2 2Lnc. In your professional opinion, can you please clarify if these findings signify one of the following conditions? Acute, Chronic or Acute on Chronic Respiratory Failure Please Specify further if known: With hypercapnia? With hypoxia? Other, please specify Unable to determine Please continue to document in your progress notes and discharge summary in order to capture severity of illness and risk of mortality. Include clinical findings that support your diagnosis. MTDD
[2018-02-03] MEDS: NICOTINE 14MG/24HR PATCH TRANSDERM SCH (13:39)
--- NOTE | 2018-02-03 13:46 | P.HPIM ---
History of Present Illness Patient is a pleasant 62-year-old gentleman with a known history of COPD came in with complaints of increased shortness of breath cough without unable to bring up anything. Patient denied any fever chills chest x-ray did not show pneumonia and can start failure exacerbation patient does have a can start failure ejection fraction of around 20% patient has mild pulmonary hypertension. Patient was having pedal edema patient takes 6 bili 60 mg of Lasix twice a day patient does have minimally elevated JVD does have pedal edema as well. Patient also continues to smoke about half a pack a day denied any fever chills nausea vomiting. Patient uses oxygen at nighttime. Review of Systems REVIEW OF SYSTEMS: CONSTITUTIONAL: No fever, no malaise, no fatigue. HEENT: No recent visual problems or hearing problems. Denied any sore throat. CARDIOVASCULAR: No chest pain, orthopnea, PND, no palpitations, no syncope. PULMONARY as mentioned in HPI GASTROINTESTINAL: No diarrhea, no nausea, no vomiting, no abdominal pain. Normoactive bowel sounds. NEUROLOGICAL: No headaches, no weakness, no numbness. HEMATOLOGICAL: Denies any bleeding or petechiae. GENITOURINARY: Denies any burning micturition, frequency, or urgency. MUSCULOSKELETAL/RHEUMATOLOGICAL: Denies any joint pain, swelling, or any muscle pain. ENDOCRINE: Denies any polyuria or polydipsia. The rest of the 14-point review of systems is negative. Past Medical History Past Medical History: Coronary Artery Disease (CAD), Chest Pain / Angina, Heart Failure, COPD, Diabetes Mellitus, Hyperlipidemia, Myocardial Infarction (MD), Osteoarthritis (OA) Additional Past Medical History / Comment(s): Coronary artery disease with a previous bypass surgery, ischemic cardiomyopathy with ejection fraction of less than 20%,HOME 02 2-2.5 LITERS AT HS, COPD, obstructive sleep apnea with an AHI of 24 currently on auto CPAP unit, obesity, hypertension, AICD placement for ischemic cardiomyopathy, Cardiomyopathy, osteoarthritis, diabetes mellitus, hyperlipidemia, hypertension. Last Myocardial Infarction Date:: UNSURE History of Any Multi-Drug Resistant Organisms: None Reported Past Surgical History: AICD, Coronary Bypass/CABG, Heart Catheterization, Orthopedic Surgery Additional Past Surgical History / Comment(s): Pacemaker and AICD- 10/2013, CABG 1 vessel many yrs ago per pt, BILATERAL SHOULDER SURGERY , steel alcides in leg from fracture, bilat shoulders Past Anesthesia/Blood Transfusion Reactions: No Reported Reaction Type of Cardiac Device: Permanent Pacemaker, AICD Device Placement Date:: Past Psychological History: No Psychological Hx Reported Additional Psychological History / Comment(s): Pt resides with his spouse. He has a walker at home but does not need to use it. He drives. He has a nebulizer, HOME 02 2-2.5 LITERS AT HS.. Smoking Status: Current every day smoker Past Alcohol Use History: Occasional Additional Past Alcohol Use History / Comment(s): STARTED SMOKING AT AGE 14- HAS CUT DOWN, CURRENTLY 1/2 pack a day Past Drug Use History: None Reported - Past Family History Mother History Unknown: Yes Father Family Medical History: Myocardial Infarction (MD) Additional Family Medical History / Comment(s): Father of a MD at the age of 56yrs. Brother(s) Family Medical History: Cancer Medications and Allergies Home Medications Medication Instructions Recorded Confirmed Type Atorvastatin [Lipitor] 20 mg PO DAILY 05/18/16 02/03/18 History Metoprolol Succinate [Toprol XL] 100 mg PO DAILY 05/28/17 02/03/18 History Aspirin [Adult Low Dose Aspirin EC] 81 mg PO DAILY 09/11/17 02/03/18 History Spironolactone [Aldactone] 25 mg PO DAILY 09/11/17 02/03/18 History Lisinopril [Zestril] 2.5 mg PO DAILY #30 tab 09/16/17 02/03/18 Rx Furosemide [Lasix] 60 mg PO BID 12/14/17 02/03/18 History Insulin Glargine [Lantus] 20 unit SQ HS #1 vial 12/24/17 02/03/18 Rx Ipratropium-Albuterol Nebulize 3 ml INHALATION RT-QID #120 12/24/17 02/03/18 Rx [Duoneb 0.5 mg-3 mg/3 ml Soln] ampul.neb metFORMIN HCL [Glucophage] 500 mg PO BID #60 tab 12/24/17 02/03/18 Rx Albuterol Inhaler [Ventolin Hfa 2 puff INHALATION RT-Q4H PRN 02/03/18 02/03/18 History Inhaler] Allergies Allergy/AdvReac Type Severity Reaction Status Date / Time Latex, Natural Rubber Allergy Rash/Hives Verified 02/03/18 08:11 levofloxacin [From Levaquin] Allergy Rash/Hives Verified 02/03/18 08:11 mold Allergy Rash/Hives Verified 02/03/18 08:11 prednisone Allergy Rash/Hives Verified 02/03/18 08:11 STEROIDS Allergy Rash/Hives Uncoded 02/02/18 23:34 Physical Exam Vitals: Vital Signs Temp Pulse Pulse Resp BP BP Pulse Ox 02/03/18 11:21 76 02/03/18 11:10 76 02/03/18 07:28 72 02/03/18 07:18 72 02/03/18 05:40 97.8 F 66 16 112/66 96 02/03/18 02:46 76 02/03/18 02:31 74 18 02/03/18 02:30 97.6 F 69 18 116/75 98 02/03/18 02:18 98.3 F 70 18 151/98 99 02/03/18 01:40 70 18 141/87 98 02/03/18 00:48 70 22 142/83 98 02/03/18 00:35 74 18 02/03/18 00:30 22 02/03/18 00:15 70 18 02/03/18 00:02 72 18 02/02/18 23:52 70 18 02/02/18 23:30 96.9 F L 70 18 131/63 97 Intake and Output 02/02/18 02/03/18 02/03/18 22:59 06:59 14:59 Other: # Voids 1 Weight 114 kg PHYSICAL EXAMINATION: GENERAL: The patient is alert and oriented x3, not in any acute distress. Obese HEENT: Pupils are round and equally reacting to light. EOMI. No scleral icterus. No conjunctival pallor. Normocephalic, atraumatic. No pharyngeal erythema. No thyromegaly. CARDIOVASCULAR: S1 and S2 present. No murmurs, rubs, or gallops. PULMONARY: Decreased air entry into bilateral lung rene significant expiratory wheezing was appreciated ABDOMEN: Soft, nontender, nondistended, normoactive bowel sounds. No palpable organomegaly. MUSCULOSKELETAL: No joint swelling or deformity. EXTREMITIES: No cyanosis, clubbing, or pedal edema. NEUROLOGICAL: Gross neurological examination did not reveal any focal deficits. SKIN: No rashes. Results CBC & Chem 7: 02/02/18 23:34 02/02/18 23:34 Labs: Abnormal Lab Results - Last 24 Hours (Table) 02/02/18 02/02/18 02/03/18 Range/Units 23:34 23:34 00:47 RBC 3.89 L (4.30-5.90) m/uL Hgb 10.9 L (13.0-17.5) gm/dL Hct 34.1 L (39.0-53.0) % RDW 17.0 H (11.5-15.5) % VBG HCO3 29 H (24-28) mmol/L BUN 24 H (9-20) mg/dL Glucose 136 H (74-99) mg/dL POC Glucose (mg/dL) (75-99) mg/dL 02/03/18 02/03/18 Range/Units 06:56 11:26 RBC (4.30-5.90) m/uL Hgb (13.0-17.5) gm/dL Hct (39.0-53.0) % RDW (11.5-15.5) % VBG HCO3 (24-28) mmol/L BUN (9-20) mg/dL Glucose (74-99) mg/dL POC Glucose (mg/dL) 168 H 243 H (75-99) mg/dL Thrombosis Risk Factor Assmnt - Choose All That Apply Any of the Below Risk Factors Present?: Yes Each Factor Represents 1 point: Abnormal pulmonary function (COPD), Obesity ( BMI >25), Swollen legs (current) Other Risk Factors: Yes Each Risk Factor Represents 2 Points: Age 61-74 years Other congenital or acquired thrombophilia - If yes, enter type in comment: No Thrombosis Risk Factor Assessment Total Risk Factor Score: 5 Thrombosis Risk Factor Assessment Level: High Risk Assessment and Plan Plan: -COPD exacerbation: Patient is on systemic steroids inhalational treatments which will be continued. -Congestive heart failure chronic systolic dysfunction with an AICD severe cardiomyopathy ejection fraction of less than 20% not in acute exacerbation, continue with the same dose of oral Lasix as at home -Coronary artery disease with history of cardiomyopathy as mentioned above -Type 2 diabetes mellitus, along with home regimen patient will be started on sliding scale insulin for steroids. -Hyperlipidemia degenerative joint disease -Sleep apnea
[2018-02-03 17:06] LABS: Glucose,Whole Blood 154 mg/dL (75-99)
[2018-02-03] MEDS: DEXAMETHASONE SOD PHOSPHATE 4 MG/ML 1 ML VIAL IV SCH (17:34)
[2018-02-03 18:59] LABS: Hemoglobin A1C 6.8 % (4.0-6.0)
[2018-02-03] MEDS: FORMOTEROL FUMARATE 20 MCG/2 ML NEBU INHALATION SCH (20:04)
[2018-02-03] MEDS: BUDESONIDE 1 MG/2 ML NEBU INHALATION SCH (20:04)
[2018-02-03 20:46] LABS: Glucose,Whole Blood 225 mg/dL (75-99)
[2018-02-03] MEDS: INSULIN DETEMIR 100 UNIT/ML 10 ML VIAL SQ SCH (20:58)
[2018-02-03] MEDS: AMOXIC-POT CLAV 875-125MG 1 EACH TAB PO SCH (20:59)
[2018-02-04] MEDS: DEXAMETHASONE SOD PHOSPHATE 4 MG/ML 1 ML VIAL IV SCH ×5 (00:20→23:04)
[2018-02-04] MEDS: HYDROcodone/APAP 5-325MG 1 EACH TAB PO PRN ×3 (00:22→21:37)
[2018-02-04 02:17] LABS: Glucose,Whole Blood 165 mg/dL (75-99)
[2018-02-04] MEDS: FUROSEMIDE 20 MG TAB PO SCH ×2 (06:44→16:20)
[2018-02-04 07:01] LABS: Glucose,Whole Blood 179 mg/dL (75-99)
[2018-02-04] MEDS: FORMOTEROL FUMARATE 20 MCG/2 ML NEBU INHALATION SCH ×2 (07:45→18:43)
[2018-02-04] MEDS: BUDESONIDE 1 MG/2 ML NEBU INHALATION SCH ×2 (07:45→18:43)
[2018-02-04] MEDS: IPRATROPIUM-ALBUTEROL 3 ML NEB INHALATION SCH ×4 (07:45→18:43)
[2018-02-04] MEDS: ASPIRIN 81 MG PO SCH (08:22)
[2018-02-04] MEDS: METOPROLOL SUCCINATE (ER) 100 MG TAB.ER.24H PO SCH (08:22)
[2018-02-04] MEDS: LISINOPRIL 2.5 MG TAB PO SCH (08:22)
[2018-02-04] MEDS: SPIRONOLACTONE 25 MG TAB PO SCH (08:22)
[2018-02-04] MEDS: metFORMIN 500 MG TAB PO SCH ×2 (08:22→20:47)
[2018-02-04] MEDS: ATORVASTATIN 20 MG TAB PO SCH (08:22)
[2018-02-04] MEDS: INSULIN ASPART 100 UNIT/ML 1 ML 10 ML VIAL SQ SCH ×4 (08:23→20:51)
[2018-02-04] MEDS: AMOXIC-POT CLAV 875-125MG 1 EACH TAB PO SCH ×2 (08:23→20:47)
--- NOTE | 2018-02-04 09:43 | P.PN ---
Subjective Progress Note Date: 02/04/18 Principal diagnosis: Acute exacerbation of chronic obstructive pulmonary disease Pulmonary consult dated 02/03/2018 This is a 62-year-old male with a history of COPD who comes into the emergency department complaining of increasing shortness of breath. It occurred for about 2 or 3 days prior to admission. The patient did have some cough but not producing any phlegm. No chest pain or chest discomfort. No fever or chills. No nausea vomiting or diarrhea. In addition, the patient complained of lower extremity edema. The patient has had multiple admissions to this hospital. He was just recently in the hospital for maybe about 3 or 4 weeks ago[address] He sees Dr. Iraheta in my office for his follow-up. He does have a history of CAD chest pain heart failure COPD hyperlipidemia and a previous history of AICD placement and bypass grafting. He continues to smoke cigarettes. Progress note dated 02/04/2018 The patient is seen again today in follow-up on the regular medical floor. He is awake and alert in no acute distress. He states he is breathing easier today as compared to yesterday. Not quite back to his baseline. His maintaining good O2 saturations in the mid 90s on room air. She's he's been afebrile. Hemodynamically stable. He is continued on bronchodilators, IV Solu- Medrol, empiric antibiotics in the form of Augmentin. He is continued on diuretics. His edema is improved. Objective - Vital Signs Vital signs: Vital Signs Temp 97.5 F L 02/04/18 05:35 Pulse 76 02/04/18 07:54 Resp 16 02/04/18 05:35 BP 115/70 02/04/18 05:35 Pulse Ox 95 02/04/18 05:35 Intake & Output 02/03/18 02/04/18 02/04/18 18:59 06:59 18:59 Weight 114.5 kg Other: Voiding Method Toilet # Voids 2 2 - Exam No acute distress, oriented 3. Mildly short of breath. HEENT examination is grossly unremarkable. Mucous membranes are moist. No oral lesions. Neck supple. Full range of motion. No adenopathy thyromegaly or neck vein distention. Cardiovascular examination reveals regular rhythm rate. S1-S2 normal. No S3 or S4. No discernible murmur noted. Lungs reveal diffuse expiratory rhonchi and wheezes. Breath sounds are diminished. This prolongation. No crackles appreciated. Abdomen soft bowel sounds are heard. No masses or tenderness. Extremities reveal 1+ pitting edema. No clubbing or cyanosis appreciated. Skin reveals some mild chronic venous stasis changes to the lower extremities. Neurologic examination is brief but nonfocal. - Labs CBC & Chem 7: 02/02/18 23:34 02/02/18 23:34 Labs: Abnormal Lab Results - Last 24 Hours (Table) 02/03/18 02/03/18 02/03/18 Range/Units 11:26 17:03 20:44 POC Glucose (mg/dL) 243 H 154 H 225 H (75-99) mg/dL 02/04/18 02/04/18 Range/Units 02:15 06:59 POC Glucose (mg/dL) 165 H 179 H (75-99) mg/dL Assessment and Plan Assessment: Assessment COPD exacerbation [place] by paratracheal bronchitis without bronchopneumonia Cor pulmonale with secondary pulmonary hypertension Ongoing tobacco use with nicotine addiction History of CAD, status post bypass grafting History of cardiomyopathy/CHF Diabetes mellitus by history Hyperlipidemia Myocardial infarction DJD History of sleep apnea syndrome Status post AICD placement Multiple additional medical problems and comorbidities Plan: The patient was seen and evaluated by Dr. Walker. He is improved today but not quite back to his baseline. We'll continue his current medications for now. Probable discharge in the a.m. We'll continue to follow. I, the cosigning physician, performed a history & physical examination of the patient. Lungs sounds with end expiratory wheeze, crackles in the posterior bases. Maintaining good O2 saturations in the 90s on room air. I discussed the assessment and plan of care with my nurse practitioner, Narcisa Graham. I attest to the above note as dictated by her.
[2018-02-04] MEDS: NICOTINE 14MG/24HR PATCH TRANSDERM SCH (11:10)
[2018-02-04 11:24] LABS: Glucose,Whole Blood 172 mg/dL (75-99)
--- NOTE | 2018-02-04 14:11 | ECHOF ---
Referral Reason:pulmonary hypertension MEASUREMENTS -------- HEIGHT: 182.9 cm WEIGHT: 113.9 kg BP: RVIDd: 4.6 cm (< 3.3) IVSd: 1.6 cm (0.6 - 1.1) LVIDd: 4.9 cm (3.9 - 5.3) LVPWd: 1.8 cm (0.6 - 1.1) IVSs: 1.9 cm LVIDs: 4.4 cm LVPWs: 1.8 cm LA Diam: 4.6 cm (2.7 - 3.8) LAESV Index (A-L): 49.80 ml/m Ao Diam: 3.3 cm (2.0 - 3.7) AV Cusp: 2.1 cm (1.5 - 2.6) LA Diam: 4.2 cm (2.7 - 3.8) MV EXCURSION: 17.722 mm (> 18.000) MV EF SLOPE: 66 mm/s (70 - 150) EPSS: 2.5 cm MV E Migue: 0.97 m/s MV DecT: 101 ms MV A Migue: 0.51 m/s MV E/A Ratio: 1.89 RAP: 15.00 mmHg RVSP: 50.70 mmHg FINDINGS -------- Paced rhythm. This was a technically adequate study. The left ventricular size is normal. There is severe global hypokinesis of LV . Overall left vent ricular systolic function is severely impaired with, an EF < 20%. The right ventricle is severely enlarged. The left atrium is mildly dilated. LA is severely dilated >40 ml/m2 The right atrial size is normal. There is mild aortic valve sclerosis. There is no evidence of aortic regurgitation. Mild mitral annular calcification present. Moderate mitral regurgitation is present. Mild tricuspid regurgitation present. There is moderate pulmonary hypertension. The right ventric ular systolic pressure, as measured by Doppler, is 50.70mmHg. Trace/mild (physiologic) pulmonic regurgitation. The aortic root size is normal. There is no pericardial effusion. CONCLUSIONS -------- 1. The left ventricular size is normal. 2. Overall left ventricular systolic function is severely impaired with, an EF < 20%. 3. The right ventricle is severely enlarged. 4. The left atrium is mildly dilated. 5. LA is severely dilated >40 ml/m2 6. The right atrial size is normal. 7. There is mild aortic valve sclerosis. 8. Mild mitral annular calcification present. 9. Moderate mitral regurgitation is present. 10. Mild tricuspid regurgitation present. 11. There is moderate pulmonary hypertension. 12. The right ventricular systolic pressure, as measured by Doppler, is 50.70mmHg. 13. Trace/mild (physiologic) pulmonic regurgitation. 14. The aortic root size is normal. 15. There is no pericardial effusion. CREMATORY ATTENDANT: Bhavana Mooney RDCS
[2018-02-04 16:59] LABS: Glucose,Whole Blood 184 mg/dL (75-99)
[2018-02-04] MEDS: SENNOSIDES-DOCUSATE SODIUM 1 EACH TAB PO SCH (20:47)
[2018-02-04] MEDS: DOCUSATE 100 MG CAP PO SCH (20:47)
[2018-02-04 20:49] LABS: Glucose,Whole Blood 189 mg/dL (75-99)
[2018-02-04] MEDS: INSULIN DETEMIR 100 UNIT/ML 10 ML VIAL SQ SCH (20:51)
[2018-02-05] MEDS: HYDROcodone/APAP 5-325MG 1 EACH TAB PO PRN ×4 (03:35→22:06)
[2018-02-05] MEDS: FUROSEMIDE 20 MG TAB PO SCH ×2 (06:01→16:22)
[2018-02-05] MEDS: DEXAMETHASONE SOD PHOSPHATE 4 MG/ML 1 ML VIAL IV SCH ×4 (06:05→20:26)
[2018-02-05 06:52] LABS: Anisocytosis Slight; Basophils % (A) 0 %; Eosinophils % (A) 0 %; HCT 34.2 % (39.0-53.0); HGB 10.9 gm/dL (13.0-17.5); Hypochromasia Moderate; Lymphocytes # (A) 0.6 k/uL (1.0-4.8); Lymphocytes % (A) 7 %; MCH 28.8 pg (25.0-35.0); MCHC 31.8 g/dL (31.0-37.0); MCV 90.4 fL (80.0-100.0); Mean Platelet Volume 7.6; Monocytes # (A) 0.6 k/uL (0-1.0); Monocytes % (A) 7 %; Neutrophils # (A) 7.6 k/uL (1.3-7.7); Neutrophils % (A) 85 %; Platelet Count 179 k/uL (150-450); RBC 3.78 m/uL (4.30-5.90); RDW 16.9 % (11.5-15.5)
[2018-02-05 07:00] LABS: Calcium 9.2 mg/dL (8.4-10.2); Potassium 4.7 mmol/L (3.5-5.1)
[2018-02-05 07:07] LABS: Glucose,Whole Blood 192 mg/dL (75-99)
[2018-02-05] MEDS: IPRATROPIUM-ALBUTEROL 3 ML NEB INHALATION SCH ×4 (07:08→19:02)
[2018-02-05] MEDS: FORMOTEROL FUMARATE 20 MCG/2 ML NEBU INHALATION SCH ×2 (07:08→19:02)
[2018-02-05] MEDS: BUDESONIDE 1 MG/2 ML NEBU INHALATION SCH ×2 (07:08→19:02)
[2018-02-05] MEDS: INSULIN ASPART 100 UNIT/ML 1 ML 10 ML VIAL SQ SCH ×4 (08:06→21:23)
[2018-02-05] MEDS: SPIRONOLACTONE 25 MG TAB PO SCH (08:06)
[2018-02-05] MEDS: ATORVASTATIN 20 MG TAB PO SCH (08:06)
[2018-02-05] MEDS: LISINOPRIL 2.5 MG TAB PO SCH (08:06)
[2018-02-05] MEDS: METOPROLOL SUCCINATE (ER) 100 MG TAB.ER.24H PO SCH (08:06)
[2018-02-05] MEDS: ASPIRIN 81 MG PO SCH (08:06)
[2018-02-05] MEDS: metFORMIN 500 MG TAB PO SCH ×2 (08:06→20:22)
[2018-02-05] MEDS: AMOXIC-POT CLAV 875-125MG 1 EACH TAB PO SCH ×2 (08:06→20:22)
[2018-02-05] MEDS: DOCUSATE 100 MG CAP PO SCH ×2 (08:06→20:22)
[2018-02-05] MEDS: NICOTINE 14MG/24HR PATCH TRANSDERM SCH (08:06)
[2018-02-05 11:18] LABS: Glucose,Whole Blood 197 mg/dL (75-99)
--- NOTE | 2018-02-05 11:40 | P.PN ---
Subjective Progress Note Date: 02/05/18 Principal diagnosis: Shortness of breath, COPD exacerbation Progress note dated 02/05/2018 63-year-old smoker with a history of COPD and COPD exacerbation. The patient has been counseled about the importance of smoking cessation and is ongoing use of tobacco which causes a COPD exacerbation. The patient does have a history of CAD, heart failure, hyperlipidemia and a previous history of both I AICD placement and bypass grafting. The patient is feeling better. Could be discharged home the next day or so. The patient remains on all the appropriate medications including DuoNeb's bronchodilator Solu-Medrol and oral antibiotics. Objective - Vital Signs Vital signs: Vital Signs Temp 97.5 F L 02/05/18 05:35 Pulse 74 02/05/18 11:19 Resp 16 02/05/18 05:35 BP 112/70 02/05/18 05:35 Pulse Ox 98 02/05/18 07:08 Intake & Output 02/04/18 02/05/18 02/05/18 18:59 06:59 18:59 Weight 114.5 kg Other: # Voids 1 2 - Exam No acute distress, oriented 3. HEENT examination is grossly unremarkable. Mucous membranes are moist. No oral lesions. Neck supple. Full range of motion. No adenopathy thyromegaly or neck vein distention. Cardiovascular examination reveals regular rhythm rate. S1-S2 normal. No S3 or S4. No discernible murmur noted. Lungs reveal diminished breath sounds throughout. A few scattered wheezes and rhonchi are noted but generally speaking, lung sounds are improved. Breath sounds equal bilaterally. Breath sounds diminished throughout. No crackles.. Abdomen soft bowel sounds are heard. No masses or tenderness. Extremities are intact. Significant improvement in the patient's lower extremity edema. Some chronic venous stasis changes are noted. No clubbing or cyanosis. Skin is without rash or lesion. Neurologic examination is brief but nonfocal. - Labs CBC & Chem 7: 02/05/18 06:36 02/05/18 06:36 Labs: Abnormal Lab Results - Last 24 Hours (Table) 02/04/18 02/04/18 02/05/18 Range/Units 16:55 20:48 06:36 RBC 3.78 L (4.30-5.90) m/uL Hgb 10.9 L (13.0-17.5) gm/dL Hct 34.2 L (39.0-53.0) % RDW 16.9 H (11.5-15.5) % Lymphocytes # 0.6 L (1.0-4.8) k/uL Chloride (98-107) mmol/L BUN (9-20) mg/dL Glucose (74-99) mg/dL POC Glucose (mg/dL) 184 H 189 H (75-99) mg/dL 02/05/18 02/05/18 02/05/18 Range/Units 06:36 07:05 11:16 RBC (4.30-5.90) m/uL Hgb (13.0-17.5) gm/dL Hct (39.0-53.0) % RDW (11.5-15.5) % Lymphocytes # (1.0-4.8) k/uL Chloride 94 L (98-107) mmol/L BUN 35 H (9-20) mg/dL Glucose 158 H (74-99) mg/dL POC Glucose (mg/dL) 192 H 197 H (75-99) mg/dL Assessment and Plan Assessment: Assessment COPD exacerbation complicated by purulent bronchitis without bronchopneumonia Cor pulmonale with secondary pulmonary hypertension Ongoing tobacco use with nicotine addiction History of CAD, status post bypass grafting History of cardiomyopathy/CHF Diabetes mellitus by history Hyperlipidemia Myocardial infarction DJD History of sleep apnea syndrome Status post AICD placement Multiple additional medical problems and comorbidities Plan: Plan dated 02/03/2018 The patient will be placed on standard therapy for a COPD exacerbation. This will include short acting beta agonist, short acting muscarinic antagonist, long -acting beta agonist, inhaled corticosteroids, and systemic corticosteroids. In addition, an oral antibiotic would not be inappropriate for short course of treatment. The patient needs to be counseled again and again about the importance of smoking cessation. A nicotine patch should be helpful. Small doses of diuretics will help with the lower extremity edema. In addition, the patient should bring in his CPAP device we can we're here in the hospital. Additional recommendations and suggestions are forthcoming. Prognosis is guarded. Plan dated 02/05/2018 The patient is being appropriately treated for his COPD exacerbation. He is counseled about the importance of smoking cessation. He is on all the appropriate medications to get his COPD turned around. His lower extremity edema is much improved. A nicotine patch was placed. He'll follow-up with my partner post discharge. No additional recommendations are made. Again he is counseled about the importance of smoking cessation. Time with Patient: Less than 30
--- NOTE | 2018-02-05 12:39 | P.PN ---
Subjective Progress Note Date: 02/04/18 Principal diagnosis: Acute COPD exacerbation Mr. Colvin is a 62-year-old male with a past medical history of COPD, coronary artery disease, osteoarthritis, congestive heart failure admitted to the hospital with acute COPD exacerbation. He is currently being treated with IV steroids and antibiotics. Patient is sitting up in his bed appears to be in no acute distress. No active overnight complaints. Patient reports that his breathing is much better compared to yesterday. On review of systems Constitutional-no fevers chills or rigors Cardiovascular-no palpitations or chest pain Respiratory - Improved difficulty in breathing GI -no abdominal pain nausea vomiting or diarrhea Objective - Vital Signs Vital signs: Vital Signs Temp 97.5 F L 02/04/18 05:35 Pulse 72 02/04/18 12:07 Resp 16 02/04/18 05:35 BP 115/70 02/04/18 05:35 Pulse Ox 95 02/04/18 05:35 Intake & Output 02/03/18 02/04/18 02/04/18 18:59 06:59 18:59 Weight 114.5 kg Other: Voiding Method Toilet # Voids 2 2 - Exam GENERAL: The patient is alert and oriented x3, not in any acute distress. Obese HEENT: Pupils are round and equally reacting to light. EOMI. No scleral icterus. No conjunctival pallor. Normocephalic, atraumatic. No pharyngeal erythema. No thyromegaly. CARDIOVASCULAR: S1 and S2 present. No murmurs, rubs, or gallops. PULMONARY: Bilateral wheezing present. Decreased air entry on both sides. ABDOMEN: Soft, nontender, nondistended, normoactive bowel sounds. No palpable organomegaly. MUSCULOSKELETAL: No joint swelling or deformity. EXTREMITIES: No cyanosis, clubbing, or pedal edema. NEUROLOGICAL: Gross neurological examination did not reveal any focal deficits. SKIN: No rashes. - Labs CBC & Chem 7: 02/02/18 23:34 02/02/18 23:34 Labs: Abnormal Lab Results - Last 24 Hours (Table) 02/03/18 02/03/18 02/04/18 Range/Units 17:03 20:44 02:15 POC Glucose (mg/dL) 154 H 225 H 165 H (75-99) mg/dL 07/07/18 07/07/18 Range/Units 06:59 11:22 POC Glucose (mg/dL) 179 H 172 H (75-99) mg/dL Assessment and Plan Assessment: ASSESSMENT -COPD exacerbation: Patient is on systemic steroids and inhalational treatments which will be continued. -Congestive heart failure chronic systolic dysfunction with an AICD severe cardiomyopathy ejection fraction of less than 20% not in acute exacerbation, continue with the same dose of oral Lasix as at home -Coronary artery disease with history of cardiomyopathy as mentioned above -Type 2 diabetes mellitus, along with home regimen patient will be started on sliding scale insulin for steroids. -Hyperlipidemia -Degenerative joint disease -Sleep apnea Plan: Continue breathing treatments IV steroids and antibiotics as per pulmonary recommendations. Blood sugars being maintained within normal range. Anticipate discharge in the next 24-48 hours
--- NOTE | 2018-02-05 12:40 | P.PN ---
Subjective Progress Note Date: 02/05/18 Principal diagnosis: Acute COPD exacerbation Mr. Colvin is a 62-year-old male with a past medical history of COPD, coronary artery disease, osteoarthritis, congestive heart failure admitted to the hospital with acute COPD exacerbation. He is currently being treated with IV steroids and antibiotics. Patient is sitting up in his bed appears to be in no acute distress. No active overnight complaints. Patient reports that his breathing is much better compared to yesterday. On review of systems Constitutional-no fevers chills or rigors Cardiovascular-no palpitations or chest pain Respiratory - Improved difficulty in breathing but still wheezing GI -no abdominal pain nausea vomiting or diarrhea Objective - Vital Signs Vital signs: Vital Signs Temp 97.5 F L 02/05/18 05:35 Pulse 74 02/05/18 11:19 Resp 16 02/05/18 05:35 BP 112/70 02/05/18 05:35 Pulse Ox 98 02/05/18 07:08 Intake & Output 02/04/18 02/05/18 02/05/18 18:59 06:59 18:59 Weight 114.5 kg Other: # Voids 1 2 - Exam GENERAL: The patient is alert and oriented x3, not in any acute distress. Obese HEENT: Pupils are round and equally reacting to light. EOMI. No scleral icterus. No conjunctival pallor. Normocephalic, atraumatic. No pharyngeal erythema. No thyromegaly. CARDIOVASCULAR: S1 and S2 present. No murmurs, rubs, or gallops. PULMONARY: Bilateral wheezing present - worse compared to yesterday. Decreased air entry on both sides. ABDOMEN: Soft, nontender, nondistended, normoactive bowel sounds. No palpable organomegaly. MUSCULOSKELETAL: No joint swelling or deformity. EXTREMITIES: No cyanosis, clubbing, or pedal edema. NEUROLOGICAL: Gross neurological examination did not reveal any focal deficits. SKIN: No rashes. - Labs CBC & Chem 7: 02/05/18 06:36 02/05/18 06:36 Labs: Abnormal Lab Results - Last 24 Hours (Table) 02/04/18 02/04/18 02/05/18 Range/Units 16:55 20:48 06:36 RBC 3.78 L (4.30-5.90) m/uL Hgb 10.9 L (13.0-17.5) gm/dL Hct 34.2 L (39.0-53.0) % RDW 16.9 H (11.5-15.5) % Lymphocytes # 0.6 L (1.0-4.8) k/uL Chloride (98-107) mmol/L BUN (9-20) mg/dL Glucose (74-99) mg/dL POC Glucose (mg/dL) 184 H 189 H (75-99) mg/dL 02/05/18 02/05/18 02/05/18 Range/Units 06:36 07:05 11:16 RBC (4.30-5.90) m/uL Hgb (13.0-17.5) gm/dL Hct (39.0-53.0) % RDW (11.5-15.5) % Lymphocytes # (1.0-4.8) k/uL Chloride 94 L (98-107) mmol/L BUN 35 H (9-20) mg/dL Glucose 158 H (74-99) mg/dL POC Glucose (mg/dL) 192 H 197 H (75-99) mg/dL Assessment and Plan Assessment: ASSESSMENT -COPD exacerbation: Patient is on systemic steroids and inhalational treatments which will be continued. -Congestive heart failure chronic systolic dysfunction with an AICD severe cardiomyopathy ejection fraction of less than 20% not in acute exacerbation, continue with the same dose of oral Lasix as at home -Coronary artery disease with history of cardiomyopathy as mentioned above -Type 2 diabetes mellitus, along with home regimen patient will be started on sliding scale insulin for steroids. -Hyperlipidemia -Degenerative joint disease -Sleep apnea Plan: Continue breathing treatments IV steroids and antibiotics as per pulmonary recommendations. Blood sugars being maintained within normal range. Anticipate discharge in the next 24 hours
[2018-02-05 17:27] LABS: Glucose,Whole Blood 130 mg/dL (75-99)
[2018-02-05] MEDS: SENNOSIDES-DOCUSATE SODIUM 1 EACH TAB PO SCH (20:22)
[2018-02-05] MEDS: INSULIN DETEMIR 100 UNIT/ML 10 ML VIAL SQ SCH (20:22)
[2018-02-05 20:47] LABS: Glucose,Whole Blood 217 mg/dL (75-99)
[2018-02-06] MEDS: FUROSEMIDE 20 MG TAB PO SCH ×2 (04:55→15:23)
[2018-02-06] MEDS: DEXAMETHASONE SOD PHOSPHATE 4 MG/ML 1 ML VIAL IV SCH ×2 (04:55→11:20)
[2018-02-06] MEDS: HYDROcodone/APAP 5-325MG 1 EACH TAB PO PRN ×3 (04:58→22:33)
[2018-02-06] MEDS: FORMOTEROL FUMARATE 20 MCG/2 ML NEBU INHALATION SCH ×2 (06:59→19:25)
[2018-02-06] MEDS: BUDESONIDE 1 MG/2 ML NEBU INHALATION SCH ×2 (06:59→19:25)
[2018-02-06] MEDS: IPRATROPIUM-ALBUTEROL 3 ML NEB INHALATION SCH ×4 (06:59→19:25)
[2018-02-06 07:05] LABS: Glucose,Whole Blood 160 mg/dL (75-99)
[2018-02-06] MEDS: NICOTINE 14MG/24HR PATCH TRANSDERM SCH (07:27)
[2018-02-06] MEDS: metFORMIN 500 MG TAB PO SCH ×2 (07:28→21:45)
[2018-02-06] MEDS: ASPIRIN 81 MG PO SCH (07:28)
[2018-02-06] MEDS: AMOXIC-POT CLAV 875-125MG 1 EACH TAB PO SCH ×2 (07:28→21:45)
[2018-02-06] MEDS: DOCUSATE 100 MG CAP PO SCH ×3 (07:28→22:09)
[2018-02-06] MEDS: METOPROLOL SUCCINATE (ER) 100 MG TAB.ER.24H PO SCH (07:28)
[2018-02-06] MEDS: SPIRONOLACTONE 25 MG TAB PO SCH (07:28)
[2018-02-06] MEDS: ATORVASTATIN 20 MG TAB PO SCH (07:28)
[2018-02-06] MEDS: LISINOPRIL 2.5 MG TAB PO SCH (07:28)
[2018-02-06] MEDS: INSULIN ASPART 100 UNIT/ML 1 ML 10 ML VIAL SQ SCH ×4 (07:29→21:45)
--- NOTE | 2018-02-06 08:36 | CDI ---
Last Revision, July 2017 Documentation Clarification Form Date: 02/03/2018 12:38:00 PM Resubmitted 02/06/2018 From: Tesha SIDNEY Perry, CCDS Admit Date: 02/03/2018 1:49:00 AM Patient Name: Edgar Colvin Visit Number: [id number] Discharge Date: ATTENTION: The Clinical Documentation Specialists (CDI) and [facility] Coding Staff appreciate your assistance in clarifying documentation. Please respond to the clarification below the line at the bottom and electronically sign. The CDI & [facility] Coding staff will review the response and follow-up if needed. Please note: Queries are made part of the Legal Health Record. If you have any questions, please contact the author of this message via ITS. Dr. Ritesh Walker: The patient presented with the following respiratory symptoms SOB, dyspnea with exertion, cough, wheezing & chest tightness. Documentation and location in medical record included: Respiratory distress is documented in the ED note. Hypoxemia is documented in your pulmonary consult. History/Risk Factors: COPD, CRYSTAL, Home O2 atc, Obesity, CAD, CHF w/hypertension & ischemic cardiomyopathy w/EF <20. Tobacco use: Current smoker. Clinical Indicators: Vital signs: RR 22 (sob) Pulse oximetry: 97 - 98 Lung/Breathing assessment: SOB, Accessory muscle use, labored, SOB w/activity. Blood Gas: HCO3 29 Treatment: Albuterol neb txs, po Zithromax, po Lasix, O2 2Lnc. In your professional opinion, can you please clarify if these findings signify one of the following conditions? Acute, Chronic or Acute on Chronic Respiratory Failure Please Specify further if known: With hypercapnia? With hypoxia? Other, please specify Unable to determine Please continue to document in your progress notes and discharge summary in order to capture severity of illness and risk of mortality. Include clinical findings that support your diagnosis. MTDD
[2018-02-06 11:49] LABS: Glucose,Whole Blood 147 mg/dL (75-99)
[2018-02-06] MEDS ORDERED: DEXAMETHASONE 4 MG TAB PO STA (12:19)
--- NOTE | 2018-02-06 12:26 | P.PN ---
Subjective Progress Note Date: 02/06/18 Principal diagnosis: Acute COPD exacerbation Mr. Colvin is a 62-year-old male with a past medical history of COPD, coronary artery disease, osteoarthritis, congestive heart failure admitted to the hospital with acute COPD exacerbation. He is currently being treated with IV steroids and antibiotics in the form of Augmentin. Patient is sitting up in his bed appears to be in no acute distress. No active overnight complaints. Patient reports that his breathing is much better compared to yesterday. On review of systems Constitutional-no fevers chills or rigors Cardiovascular-no palpitations or chest pain Respiratory - Improved difficulty in breathing but still wheezing GI -no abdominal pain nausea vomiting or diarrhea Objective - Vital Signs Vital signs: Vital Signs Temp 97.1 F L 02/06/18 05:50 Pulse 70 02/06/18 11:16 Resp 20 02/06/18 05:50 BP 136/84 02/06/18 05:50 Pulse Ox 100 02/06/18 06:59 Intake & Output 02/05/18 02/06/18 02/06/18 18:59 06:59 18:59 Intake Total 600 240 Balance 600 240 Weight 114.759 kg Intake: Oral 600 240 Other: # Voids 2 1 - Exam GENERAL: The patient is alert and oriented x3, not in any acute distress. Obese HEENT: Pupils are round and equally reacting to light. EOMI. No scleral icterus. No conjunctival pallor. Normocephalic, atraumatic. No pharyngeal erythema. No thyromegaly. CARDIOVASCULAR: S1 and S2 present. No murmurs, rubs, or gallops. PULMONARY: Bilateral wheezing present -better compared to yesterday. Decreased air entry on both sides. ABDOMEN: Soft, nontender, nondistended, normoactive bowel sounds. No palpable organomegaly. MUSCULOSKELETAL: No joint swelling or deformity. EXTREMITIES: No cyanosis, clubbing, or pedal edema. NEUROLOGICAL: Gross neurological examination did not reveal any focal deficits. SKIN: No rashes. - Labs CBC & Chem 7: 02/05/18 06:36 02/05/18 06:36 Labs: Abnormal Lab Results - Last 24 Hours (Table) 02/02/18 02/05/18 02/05/18 Range/Units 23:34 17:14 20:44 POC Glucose (mg/dL) 130 H 217 H (75-99) mg/dL Hemoglobin A1c 6.8 H (4.0-6.0) % 02/06/18 02/06/18 Range/Units 06:56 11:30 POC Glucose (mg/dL) 160 H 147 H (75-99) mg/dL Hemoglobin A1c (4.0-6.0) % Assessment and Plan Assessment: ASSESSMENT -COPD exacerbation: Patient is on systemic steroids and inhalational treatments - IV steroids changed to by mouth steroids today -Congestive heart failure chronic systolic dysfunction with an AICD severe cardiomyopathy ejection fraction of less than 20% not in acute exacerbation, continue with the same dose of oral Lasix as at home -Coronary artery disease with history of cardiomyopathy as mentioned above -Type 2 diabetes mellitus, along with home regimen patient will be started on sliding scale insulin for steroids. -Hyperlipidemia -Degenerative joint disease -Sleep apnea Plan: Continue breathing treatments , PO steroids and antibiotics as per pulmonary recommendations. Blood sugars being maintained within normal range. Anticipate discharge in the next 24 hours.
--- NOTE | 2018-02-06 15:44 | P.PN ---
Subjective Progress Note Date: 02/06/18 Principal diagnosis: acute on chronic hypoxic and hypercapnic respiratory failure secondary to COPD exacerbation Progress note dated 02/05/2018 63-year-old smoker with a history of COPD and COPD exacerbation. The patient has been counseled about the importance of smoking cessation and is ongoing use of tobacco which causes a COPD exacerbation. The patient does have a history of CAD, heart failure, hyperlipidemia and a previous history of both I AICD placement and bypass grafting. The patient is feeling better. Could be discharged home the next day or so. The patient remains on all the appropriate medications including DuoNeb's bronchodilator Solu-Medrol and oral antibiotics. On 02/06/1904/19/2018 patient seen in follow-up on medical surgical floor. Room air pulse ox 97%, patient is afebrile, vital signs are stable.are stable. patient states he had a debridement this morning while walking to the bathroom, recovered. His only significant for needed bed, in no acute distress. Lung sounds are still positive for diffuse wheezes bilaterally, no rhonchi. no new labs were chest x-rays. bilateral lower extremity edema is improving,she continues on oral Lasix 60 mg twice daily, his and nebulized bronchodilators, and his IV steroids will be transitioned to oral Decadron as the patient states he cannot take oral prednisone. Objective - Vital Signs Vital signs: Vital Signs Temp 97.0 F L 02/06/18 14:36 Pulse 72 02/06/18 14:36 Resp 20 02/06/18 14:36 BP 110/67 02/06/18 14:36 Pulse Ox 97 02/06/18 14:36 Intake & Output 02/05/18 02/06/18 02/06/18 18:59 06:59 18:59 Intake Total 600 480 Balance 600 480 Weight 114.759 kg Intake: Oral 600 480 Other: # Voids 2 1 2 # Bowel Movements 0 - Exam No acute distress, oriented 3. HEENT examination is grossly unremarkable. Mucous membranes are moist. No oral lesions. Neck supple. Full range of motion. No adenopathy thyromegaly or neck vein distention. Cardiovascular examination reveals regular rhythm rate. S1-S2 normal. No S3 or S4. No discernible murmur noted. Lungs reveal diminished breath sounds throughout. A few scattered wheezes are noted but generally speaking, lung sounds are improved. Breath sounds equal bilaterally. Breath sounds diminished throughout. No crackles.. Abdomen soft bowel sounds are heard. No masses or tenderness. Extremities are intact. Significant improvement in the patient's lower extremity edema. Some chronic venous stasis changes are noted. No clubbing or cyanosis. Skin is without rash or lesion. Neurologic examination is brief but nonfocal. - Labs CBC & Chem 7: 02/05/18 06:36 02/05/18 06:36 Labs: Abnormal Lab Results - Last 24 Hours (Table) 02/02/18 02/05/18 02/05/18 Range/Units 23:34 17:14 20:44 POC Glucose (mg/dL) 130 H 217 H (75-99) mg/dL Hemoglobin A1c 6.8 H (4.0-6.0) % 02/06/18 02/06/18 Range/Units 06:56 11:30 POC Glucose (mg/dL) 160 H 147 H (75-99) mg/dL Hemoglobin A1c (4.0-6.0) % Assessment and Plan Plan: Assessment: Assessment COPD exacerbation complicated by purulent bronchitis without bronchopneumonia Cor pulmonale with secondary pulmonary hypertension Ongoing tobacco use with nicotine addiction History of CAD, status post bypass grafting History of cardiomyopathy/CHF Diabetes mellitus by history Hyperlipidemia Myocardial infarction DJD History of sleep apnea syndrome Status post AICD placement Multiple additional medical problems and comorbidities Plan: continue current plan of treatment, discussed with attending physician the steroid taper plan, patient cannot tolerate oral prednisone, will be started on oral Decadron starting today, overall he is improving, swelling in bilateral lower extremities is improving. He was again discussed with the patient the home CPAP for his history of obstructive sleep apnea, and the patient states he cannot tolerate the CPAP mask, and remains still very much resistant to the idea of a CPAP. Smoking cessation was again revisited, strongly encouraged. Overall continues to improve, and possibly consider for discharge home in the next 24 hours. I performed a history & physical examination of the patient and discussed their management with my nurse practitioner, Agnes Mckeon. I reviewed the nurse practitioner's note and agree with the documented findings and plan of care. Lung sounds are positive for diffuse expiratory wheezes. The findings and the impression was discussed with the patient. I attest to the documentation by the nurse practitioner. 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
[2018-02-06 17:19] LABS: Glucose,Whole Blood 253 mg/dL (75-99)
[2018-02-06 20:40] LABS: Glucose,Whole Blood 226 mg/dL (75-99)
[2018-02-06] MEDS: INSULIN DETEMIR 100 UNIT/ML 10 ML VIAL SQ SCH (21:46)
[2018-02-06] MEDS: SENNOSIDES-DOCUSATE SODIUM 1 EACH TAB PO SCH ×2 (21:48→22:09)
[2018-02-07] MEDS: BISACODYL 10 MG SUPP RECTAL STA ×2 (03:08→03:31)
[2018-02-07] MEDS ORDERED: BISACODYL 10 MG SUPP RECTAL ONE (03:15)
[2018-02-07] MEDS: FUROSEMIDE 20 MG TAB PO SCH ×2 (06:31→16:33)
[2018-02-07] MEDS: BUDESONIDE 1 MG/2 ML NEBU INHALATION SCH ×2 (07:03→18:33)
[2018-02-07] MEDS: FORMOTEROL FUMARATE 20 MCG/2 ML NEBU INHALATION SCH ×2 (07:03→18:46)
[2018-02-07] MEDS: IPRATROPIUM-ALBUTEROL 3 ML NEB INHALATION SCH ×4 (07:03→18:33)
[2018-02-07 07:51] LABS: Glucose,Whole Blood 99 mg/dL (75-99)
[2018-02-07] MEDS: DOCUSATE 100 MG CAP PO SCH ×2 (08:14→21:54)
[2018-02-07] MEDS: INSULIN ASPART 100 UNIT/ML 1 ML 10 ML VIAL SQ SCH ×4 (08:14→21:57)
[2018-02-07] MEDS: ATORVASTATIN 20 MG TAB PO SCH (08:14)
[2018-02-07] MEDS: ASPIRIN 81 MG PO SCH (08:14)
[2018-02-07] MEDS: AMOXIC-POT CLAV 875-125MG 1 EACH TAB PO SCH ×2 (08:14→21:54)
[2018-02-07] MEDS: metFORMIN 500 MG TAB PO SCH ×2 (08:15→21:54)
[2018-02-07] MEDS: METOPROLOL SUCCINATE (ER) 100 MG TAB.ER.24H PO SCH (08:15)
[2018-02-07] MEDS: LISINOPRIL 2.5 MG TAB PO SCH (08:15)
[2018-02-07] MEDS: NICOTINE 14MG/24HR PATCH TRANSDERM SCH (08:15)
[2018-02-07] MEDS: SPIRONOLACTONE 25 MG TAB PO SCH (08:16)
[2018-02-07] MEDS: HYDROcodone/APAP 5-325MG 1 EACH TAB PO PRN ×2 (09:58→20:24)
[2018-02-07 12:05] LABS: Glucose,Whole Blood 110 mg/dL (75-99)
[2018-02-07] MEDS ORDERED: FUROSEMIDE 10 MG/ML 4 ML VIAL IV STA (12:25)
[2018-02-07] MEDS: DEXAMETHASONE 4 MG TAB PO SCH ×2 (13:25→22:55)
--- NOTE | 2018-02-07 13:41 | P.PN ---
Subjective Mr. Colvin is a 62-year-old male with a past medical history of COPD, coronary artery disease, osteoarthritis, congestive heart failure admitted to the hospital with acute COPD exacerbation. He is currently being treated with IV steroids and antibiotics in the form of Augmentin. Patient is sitting up in his bed appears to be in no acute distress. No active overnight complaints. Patient reports that his breathing is much better compared to yesterday. On review of systems Constitutional-no fevers chills or rigors Cardiovascular-no palpitations or chest pain Respiratory - Improved difficulty in breathing but still wheezing GI -no abdominal pain nausea vomiting or diarrhea Objective - Vital Signs Vital signs: Vital Signs Temp 97.8 F 02/07/18 05:45 Pulse 70 02/07/18 11:05 Resp 20 02/07/18 05:45 BP 141/89 02/07/18 05:45 Pulse Ox 97 02/07/18 07:03 Intake & Output 02/06/18 02/07/18 02/07/18 18:59 06:59 18:59 Intake Total 480 601 360 Balance 480 601 360 Weight 113.852 kg Intake: Oral 480 601 360 Other: Voiding Method Toilet # Voids 2 2 # Bowel Movements 0 - Exam GENERAL: The patient is alert and oriented x3, not in any acute distress. Well developed, well nourished. HEENT: Pupils are round and equally reacting to light. EOMI. No scleral icterus. No conjunctival pallor. Normocephalic, atraumatic. No pharyngeal erythema. No thyromegaly. CARDIOVASCULAR: S1 and S2 present. No murmurs, rubs, or gallops. PULMONARY: Chest is clear to auscultation, scattered wheezing bilaterally. no crackles. ABDOMEN: Soft, nontender, nondistended, normoactive bowel sounds. No palpable organomegaly. MUSCULOSKELETAL: No joint swelling or deformity. EXTREMITIES: No cyanosis, clubbing, or pedal edema. NEUROLOGICAL: Gross neurological examination did not reveal any focal deficits. SKIN: No rashes. - Labs CBC & Chem 7: 02/05/18 06:36 02/05/18 06:36 Labs: Abnormal Lab Results - Last 24 Hours (Table) 02/06/18 02/06/18 02/07/18 Range/Units 17:12 20:33 11:56 POC Glucose (mg/dL) 253 H 226 H 110 H (75-99) mg/dL Assessment and Plan Plan: -COPD exacerbation: Patient is on systemic steroids and inhalational treatments - IV steroids changed to by mouth steroids today -Congestive heart failure chronic systolic dysfunction with an AICD severe cardiomyopathy ejection fraction of less than 20% not in acute exacerbation, continue with the same dose of oral Lasix as at home -Coronary artery disease with history of cardiomyopathy as mentioned above -Type 2 diabetes mellitus, along with home regimen patient will be started on sliding scale insulin for steroids. -Hyperlipidemia -Degenerative joint disease -Sleep apnea Plan: Continue breathing treatments , PO steroids and antibiotics as per pulmonary recommendations. Blood sugars being maintained within normal range. Anticipate discharge in the next 24 hours. Patient is saturating well. He states he uses home oxygen at night. Patient counseled against smoking, however he doesn't want to quit. Risks benefits and alternatives are explained Patient is improving and expected discharge in 24 hours
--- NOTE | 2018-02-07 13:57 | P.PN ---
Subjective Progress Note Date: 02/07/18 Principal diagnosis: acute on chronic hypoxic and hypercapnic respiratory failure secondary to COPD exacerbation Progress note dated 02/05/2018 63-year-old smoker with a history of COPD and COPD exacerbation. The patient has been counseled about the importance of smoking cessation and is ongoing use of tobacco which causes a COPD exacerbation. The patient does have a history of CAD, heart failure, hyperlipidemia and a previous history of both I AICD placement and bypass grafting. The patient is feeling better. Could be discharged home the next day or so. The patient remains on all the appropriate medications including DuoNeb's bronchodilator Solu-Medrol and oral antibiotics. On 02/06/2018 patient seen in follow-up on medical surgical floor. Room air pulse ox 97%, patient is afebrile, vital signs are stable.are stable. patient states he had a debridement this morning while walking to the bathroom, recovered. His only significant for needed bed, in no acute distress. Lung sounds are still positive for diffuse wheezes bilaterally, no rhonchi. no new labs were chest x-rays. bilateral lower extremity edema is improving,she continues on oral Lasix 60 mg twice daily, his and nebulized bronchodilators, and his IV steroids will be transitioned to oral Decadron as the patient states he cannot take oral prednisone. On 02/07/2018 patient states he had 3 episodes of breathing attacks this morning , and they were not precipitated by exertion. Patient is wearing his oxygen intermittently, pulse ox on 2 L per nasal cannula is 97%, time of my evaluation patient is sitting up in bed, in no acute distress, he is anxious about going home to soon, and having one of his breathing attacks while at home while his is at work. Lung sounds are positive for scattered wheezes, no rales noted on today's exam. Patient's IV steroids were switched to oral Decadron, and today patient will receive 4 mg of Decadron twice daily. Continues on oral Lasix, swelling in his bilateral lower legs is improving, the patient still has some residual swelling, we will give the patient and additional dose of IV Lasix today. Continue with the rest the medical treatments. She is complaining of some constipation, his abdomen is soft, started on Colace. No fever no chills, no chest wall tenderness, does congestion, no significant phlegm production. We'll continue with current medical treatment, and one dose of IV diuretics today. Objective - Vital Signs Vital signs: Vital Signs Temp 97.8 F 02/07/18 05:45 Pulse 70 02/07/18 11:05 Resp 20 02/07/18 05:45 BP 141/89 02/07/18 05:45 Pulse Ox 97 02/07/18 07:03 Intake & Output 02/06/18 02/07/18 02/07/18 18:59 06:59 18:59 Intake Total 480 601 360 Balance 480 601 360 Weight 113.852 kg Intake: Oral 480 601 360 Other: Voiding Method Toilet # Voids 2 2 # Bowel Movements 0 - Exam No acute distress, oriented 3. HEENT examination is grossly unremarkable. Mucous membranes are moist. No oral lesions. Neck supple. Full range of motion. No adenopathy thyromegaly or neck vein distention. Cardiovascular examination reveals regular rhythm rate. S1-S2 normal. No S3 or S4. No discernible murmur noted. Lungs reveal diminished breath sounds throughout. A few scattered wheezes. No crackles.. Abdomen soft bowel sounds are heard. No masses or tenderness. Extremities are intact. Significant improvement in the patient's lower extremity edema. Some chronic venous stasis changes are noted. No clubbing or cyanosis. Skin is without rash or lesion. Neurologic examination is brief but nonfocal. - Labs CBC & Chem 7: 02/05/18 06:36 02/05/18 06:36 Labs: Abnormal Lab Results - Last 24 Hours (Table) 02/06/18 02/06/18 02/07/18 Range/Units 17:12 20:33 11:56 POC Glucose (mg/dL) 253 H 226 H 110 H (75-99) mg/dL Assessment and Plan Plan: Assessment: Assessment COPD exacerbation complicated by purulent bronchitis without bronchopneumonia Cor pulmonale with secondary pulmonary hypertension Ongoing tobacco use with nicotine addiction History of CAD, status post bypass grafting History of cardiomyopathy/CHF Diabetes mellitus by history Hyperlipidemia Myocardial infarction DJD History of sleep apnea syndrome Status post AICD placement Multiple additional medical problems and comorbidities Plan: We will add an additional dose of IV Lasix today, in addition to the oral Lasix. Continue current antibiotics, continue nebulized bronchodilators, Pulmicort and Perforomist. Patient will benefit from another 24 hours inpatient treatment. We'll continue to follow I performed a history & physical examination of the patient and discussed their management with my nurse practitioner, Agnes Mckeon. I reviewed the nurse practitioner's note and agree with the documented findings and plan of care. Lung sounds are positive for diffuse expiratory wheezes. The findings and the impression was discussed with the patient. I attest to the documentation by the nurse practitioner. Time with Patient: Less than 30
[2018-02-07 16:44] LABS: Glucose,Whole Blood 211 mg/dL (75-99)
[2018-02-07 21:14] LABS: Glucose,Whole Blood 219 mg/dL (75-99)
[2018-02-07] MEDS: PANTOPRAZOLE 40 MG/10 ML VIAL IVP SCH (21:54)
[2018-02-07] MEDS: SENNOSIDES-DOCUSATE SODIUM 1 EACH TAB PO SCH (21:54)
[2018-02-07] MEDS: INSULIN DETEMIR 100 UNIT/ML 10 ML VIAL SQ SCH (21:57)
[2018-02-07] MEDS: HEPARIN SODIUM,PORCINE 5,000 UNIT/ML 1 ML VIAL SQ SCH (22:55)
[2018-02-08] MEDS: FUROSEMIDE 20 MG TAB PO SCH (06:50)
[2018-02-08] MEDS: BUDESONIDE 1 MG/2 ML NEBU INHALATION SCH (07:15)
[2018-02-08] MEDS: IPRATROPIUM-ALBUTEROL 3 ML NEB INHALATION SCH ×3 (07:15→15:30)
[2018-02-08] MEDS: FORMOTEROL FUMARATE 20 MCG/2 ML NEBU INHALATION SCH (07:15)
[2018-02-08 07:19] LABS: Glucose,Whole Blood 130 mg/dL (75-99)
[2018-02-08] MEDS: ATORVASTATIN 20 MG TAB PO SCH (07:57)
[2018-02-08] MEDS: LISINOPRIL 2.5 MG TAB PO SCH (07:57)
[2018-02-08] MEDS: AMOXIC-POT CLAV 875-125MG 1 EACH TAB PO SCH (07:57)
[2018-02-08] MEDS: ASPIRIN 81 MG PO SCH (07:57)
[2018-02-08] MEDS: INSULIN ASPART 100 UNIT/ML 1 ML 10 ML VIAL SQ SCH ×2 (07:57→12:33)
[2018-02-08] MEDS: METOPROLOL SUCCINATE (ER) 100 MG TAB.ER.24H PO SCH (07:58)
[2018-02-08] MEDS: metFORMIN 500 MG TAB PO SCH (07:58)
[2018-02-08] MEDS: DEXAMETHASONE 4 MG TAB PO SCH (07:58)
[2018-02-08] MEDS: SPIRONOLACTONE 25 MG TAB PO SCH (07:58)
[2018-02-08] MEDS: DOCUSATE 100 MG CAP PO SCH (07:58)
[2018-02-08] MEDS: NICOTINE 14MG/24HR PATCH TRANSDERM SCH (07:58)
[2018-02-08] MEDS: HEPARIN SODIUM,PORCINE 5,000 UNIT/ML 1 ML VIAL SQ SCH (08:01)
[2018-02-08] MEDS: PANTOPRAZOLE 40 MG/10 ML VIAL IVP SCH (08:01)
[2018-02-08] MEDS: HYDROcodone/APAP 5-325MG 1 EACH TAB PO PRN (12:06)
[2018-02-08 12:50] LABS: Glucose,Whole Blood 135 mg/dL (75-99)
--- NOTE | 2018-02-08 14:09 | P.PN ---
Subjective Progress Note Date: 02/08/18 Principal diagnosis: acute on chronic hypoxic and hypercapnic respiratory failure secondary to COPD exacerbation Progress note dated 02/05/2018 63-year-old smoker with a history of COPD and COPD exacerbation. The patient has been counseled about the importance of smoking cessation and is ongoing use of tobacco which causes a COPD exacerbation. The patient does have a history of CAD, heart failure, hyperlipidemia and a previous history of both I AICD placement and bypass grafting. The patient is feeling better. Could be discharged home the next day or so. The patient remains on all the appropriate medications including DuoNeb's bronchodilator Solu-Medrol and oral antibiotics. On 02/06/2018 patient seen in follow-up on medical surgical floor. Room air pulse ox 97%, patient is afebrile, vital signs are stable.are stable. patient states he had a debridement this morning while walking to the bathroom, recovered. His only significant for needed bed, in no acute distress. Lung sounds are still positive for diffuse wheezes bilaterally, no rhonchi. no new labs were chest x-rays. bilateral lower extremity edema is improving,she continues on oral Lasix 60 mg twice daily, his and nebulized bronchodilators, and his IV steroids will be transitioned to oral Decadron as the patient states he cannot take oral prednisone. On 02/07/2018 patient states he had 3 episodes of breathing attacks this morning , and they were not precipitated by exertion. Patient is wearing his oxygen intermittently, pulse ox on 2 L per nasal cannula is 97%, time of my evaluation patient is sitting up in bed, in no acute distress, he is anxious about going home to soon, and having one of his breathing attacks while at home while his is at work. Lung sounds are positive for scattered wheezes, no rales noted on today's exam. Patient's IV steroids were switched to oral Decadron, and today patient will receive 4 mg of Decadron twice daily. Continues on oral Lasix, swelling in his bilateral lower legs is improving, the patient still has some residual swelling, we will give the patient and additional dose of IV Lasix today. Continue with the rest the medical treatments. She is complaining of some constipation, his abdomen is soft, started on Colace. No fever no chills, no chest wall tenderness, does congestion, no significant phlegm production. We'll continue with current medical treatment, and one dose of IV diuretics today. On 02/08/2018 patient is feeling much better, no breathing attacks today, he sitting up on the edge of bed, eating lunch, in no acute distress. Lung sounds are positive for a few limited end expiratory wheezes, and some bibasilar crackles, good air entry noted bilaterally. The patient received an additional dose of IV Lasix, he has diuresed, and is feeling better today. Continues on oral Decadron, nebulized bronchodilators, vital signs are stable. His oxygen is on standby, no acute events overnight. Patient states he is ready to go home today. From pulmonary standpoint patient is stable for discharge home today. Objective - Vital Signs Vital signs: Vital Signs Temp 97.4 F L 02/08/18 06:33 Pulse 80 02/08/18 10:54 Resp 16 02/08/18 06:33 BP 103/73 02/08/18 06:33 Pulse Ox 98 02/08/18 06:33 Intake & Output 02/07/18 02/08/18 02/08/18 18:59 06:59 18:59 Intake Total 840 Output Total 200 Balance 840 -200 Intake: Oral 840 Output: Urine 200 Other: Voiding Method Toilet # Voids 3 2 3 - Exam No acute distress, oriented 3. HEENT examination is grossly unremarkable. Mucous membranes are moist. No oral lesions. Neck supple. Full range of motion. No adenopathy thyromegaly or neck vein distention. Cardiovascular examination reveals regular rhythm rate. S1-S2 normal. No S3 or S4. No discernible murmur noted. Lungs reveal diminished breath sounds throughout. A few scattered wheezes. No crackles.. Abdomen soft bowel sounds are heard. No masses or tenderness. Extremities are intact. Significant improvement in the patient's lower extremity edema. Some chronic venous stasis changes are noted. No clubbing or cyanosis. Skin is without rash or lesion. Neurologic examination is brief but nonfocal. - Labs CBC & Chem 7: 02/05/18 06:36 02/05/18 06:36 Labs: Abnormal Lab Results - Last 24 Hours (Table) 02/07/18 02/07/18 02/08/18 Range/Units 16:43 21:13 07:06 POC Glucose (mg/dL) 211 H 219 H 130 H (75-99) mg/dL 02/08/18 Range/Units 12:20 POC Glucose (mg/dL) 135 H (75-99) mg/dL Assessment and Plan Plan: Assessment: Assessment COPD exacerbation complicated by purulent bronchitis without bronchopneumonia Cor pulmonale with secondary pulmonary hypertension Ongoing tobacco use with nicotine addiction History of CAD, status post bypass grafting History of cardiomyopathy/CHF Diabetes mellitus by history Hyperlipidemia Myocardial infarction DJD History of sleep apnea syndrome Status post AICD placement Multiple additional medical problems and comorbidities Plan: Patient is doing well, feeling and breathing better today, no acute events overnight, vital signs remain stable. Patient is stable for discharge home from pulmonary standpoint, he can finish 4 more days of oral Augmentin, Decadron , and his maintenance nebulized treatments and inhalers. Follow up with Dr. Walker in the office in one week. I performed a history & physical examination of the patient and discussed their management with my nurse practitioner, Agnes Mckeon. I reviewed the nurse practitioner's note and agree with the documented findings and plan of care. Lung sounds are positive a few wheezes, and a few bibasilar crackles. The findings and the impression was discussed with the patient. I attest to the documentation by the nurse practitioner. Time with Patient: Less than 30
[2018-02-08 14:53] VITALS: BP 123/76; PULSE 70; RESP 18; TEMP 98
--- NOTE | 2018-02-08 15:46 | P.DS ---
Providers Date of admission: 02/03/18 01:49 Attending physician: Rishi An Primary care physician: [facility] Course: Mr. Colvin is a 62-year-old male with a past medical history of COPD, coronary artery disease, osteoarthritis, congestive heart failure admitted to the hospital with acute COPD exacerbation. He is been evaluated by pulmonary team. Patient was treated with steroids. He cannot take prednisone as it causes rash for him. Patient was treated with dexamethasone. Patient will be discharged on tapered dose of dexamethasone and instructions were provided to the patient and he verbalized understanding and acceptance. Also was treated with a breathing treatment antibiotic and oxygen. Patient showed interval improvement and he returned back to his baseline. Patient feels is ready to be discharged. Patient was cleared by pulmonary team for discharge. Problems and management plan was discussed with patient and he verbalized understanding and acceptance. Patient was found stable and can be discharged home however he needs a follow-up as an outpatient. Prescription was provided to the patient. Patient states he uses home oxygen and he have everything for him. Patient states he has already an appointment with Dr. Iraheta in about week, he has dissections and time and with contact information. And he will call and make an appointment with Dr. Angulo in one week as recommended GENERAL: The patient is alert and oriented x3, not in any acute distress. Well developed, well nourished. HEENT: Pupils are round and equally reacting to light. EOMI. No scleral icterus. No conjunctival pallor. Normocephalic, atraumatic. No pharyngeal erythema. No thyromegaly. CARDIOVASCULAR: S1 and S2 present. No murmurs, rubs, or gallops. PULMONARY: Chest is clear to auscultation, scattered wheezing bilaterally. no crackles. ABDOMEN: Soft, nontender, nondistended, normoactive bowel sounds. No palpable organomegaly. MUSCULOSKELETAL: No joint swelling or deformity. EXTREMITIES: No cyanosis, clubbing, or pedal edema. NEUROLOGICAL: Gross neurological examination did not reveal any focal deficits. SKIN: No rashes. Time spent more than 35 minutes Patient Condition at Discharge: Fair Plan - Discharge Summary Discharge Rx Participant: No New Discharge Prescriptions: New Albuterol Inhaler [Ventolin Hfa Inhaler] 1 - 2 puff INHALATION Q4HR PRN 30 Days #1 inhaler PRN Reason: shortness of breath Amoxic-Pot Clav 875-125Mg [Augmentin 875-125] 1 each PO Q12HR 3 Days #6 tab Dexamethasone 1 mg PO DIRECTED #21 tablet Nicotine 14Mg/24Hr Patch [Habitrol] 1 patch TRANSDERM DAILY patch Pantoprazole [Protonix] 40 mg PO QAM #30 tablet.dr Continue Atorvastatin [Lipitor] 20 mg PO DAILY Metoprolol Succinate [Toprol XL] 100 mg PO DAILY Spironolactone [Aldactone] 25 mg PO DAILY Aspirin [Adult Low Dose Aspirin EC] 81 mg PO DAILY Lisinopril [Zestril] 2.5 mg PO DAILY #30 tab Furosemide [Lasix] 60 mg PO BID Insulin Glargine [Lantus] 20 unit SQ HS #1 vial Ipratropium-Albuterol Nebulize [Duoneb 0.5 mg-3 mg/3 ml Soln] 3 ml INHALATION RT-QID #120 ampul.neb metFORMIN HCL [Glucophage] 500 mg PO BID #60 tab Albuterol Inhaler [Ventolin Hfa Inhaler] 2 puff INHALATION RT-Q4H PRN PRN Reason: Shortness Of Breath Discharge Medication List Atorvastatin [Lipitor] 20 mg PO DAILY 05/18/16 [History] Metoprolol Succinate [Toprol XL] 100 mg PO DAILY 05/28/17 [History] Aspirin [Adult Low Dose Aspirin EC] 81 mg PO DAILY 09/11/17 [History] Spironolactone [Aldactone] 25 mg PO DAILY 09/11/17 [History] Lisinopril [Zestril] 2.5 mg PO DAILY #30 tab 09/16/17 [Rx] Furosemide [Lasix] 60 mg PO BID 12/14/17 [History] Insulin Glargine [Lantus] 20 unit SQ HS #1 vial 12/24/17 [Rx] Ipratropium-Albuterol Nebulize [Duoneb 0.5 mg-3 mg/3 ml Soln] 3 ml INHALATION RT -QID #120 ampul.neb 12/24/17 [Rx] metFORMIN HCL [Glucophage] 500 mg PO BID #60 tab 12/24/17 [Rx] Albuterol Inhaler [Ventolin Hfa Inhaler] 2 puff INHALATION RT-Q4H PRN 02/03/18 [ History] Albuterol Inhaler [Ventolin Hfa Inhaler] 1 - 2 puff INHALATION Q4HR PRN 30 Days #1 inhaler 02/08/18 [Rx] Amoxic-Pot Clav 875-125Mg [Augmentin 875-125] 1 each PO Q12HR 3 Days #6 tab 06/18 [Rx] Dexamethasone 1 mg PO DIRECTED #21 tablet 02/08/18 [Rx] Nicotine 14Mg/24Hr Patch [Habitrol] 1 patch TRANSDERM DAILY patch 02/08/18 [Rx] Pantoprazole [Protonix] 40 mg PO QAM #30 tablet. 02/08/18 [Rx] Follow up Appointment(s)/Referral(s): Mary Merritt MD [Primary Care Provider] - 1-2 days (call office for appointment) Ritesh Walker DO [Doctor of Osteopathic Medicine] - 02/13/18 1:45 pm Patient Instructions/Handouts: COPD (Chronic Obstructive Pulmonary Disease) (DC ) Activity/Diet/Wound Care/Special Instructions: Cardiac, diabetic diet. NO smoking, cessation information provided and discussed. Oxygen from [facility], continue to use a nasal cannula, 2 liters at night as directed. Discharge Disposition: HOME SELF-CARE
[2018-02-08] MEDS ORDERED: PANTOPRAZOLE 40 MG TABLET PO SCH (17:30)
== END 2018-02-08 16:52 | disposition home or self-care (01) | DRG 190 ==
LOC: EC 23:29 → 4MS4W 02-03 01:49
PROVIDERS: ADMIT Hospitalist; ATTEND Hospitalist
DX: J44.1 Chronic obstructive pulmonary disease with (acute) exacerbation (principal); J96.21 Acute and chronic respiratory failure with hypoxia; J96.22 Acute and chronic respiratory failure with hypercapnia; I50.22 Chronic systolic (congestive) heart failure; E11.9 Type 2 diabetes mellitus without complications; E78.5 Hyperlipidemia, unspecified; F17.210 Nicotine dependence, cigarettes, uncomplicated; G47.33 Obstructive sleep apnea (adult) (pediatric); I11.0 Hypertensive heart disease with heart failure; I25.10 Atherosclerotic heart disease of native coronary artery without angina pectoris; I25.2 Old myocardial infarction; I25.5 Ischemic cardiomyopathy; I27.29 Other secondary pulmonary hypertension; K59.00 Constipation, unspecified; M19.90 Unspecified osteoarthritis, unspecified site; Z79.4 Long term (current) use of insulin; Z79.82 Long term (current) use of aspirin; Z79.899 Other long term (current) drug therapy; Z82.49 Family history of ischemic heart disease and other diseases of the circulatory system; Z95.1 Presence of aortocoronary bypass graft; Z95.810 Presence of automatic (implantable) cardiac defibrillator; Z99.81 Dependence on supplemental oxygen; I87.8 Other specified disorders of veins; Z88.8 Allergy status to other drugs, medicaments and biological substances; Z88.1 Allergy status to other antibiotic agents; Z91.040 Latex allergy status; E66.9 Obesity, unspecified; Z68.34 Body mass index [BMI] 34.0-34.9, adult; Z71.6 Tobacco abuse counseling
CPT/HCPCS: 36415; 71046; 80048; 82803; 83036; 85025; 93005; 93306; 94640; 94644; 94760; 99285

== ENCOUNTER 2018-02-28 08:33 | Inpatient (IN) | payer MEDICARE ==
[2018-02-28] MEDS ORDERED: LORazepam 1 MG TAB PO STA (08:54)
[2018-02-28] MEDS ORDERED: FUROSEMIDE 10 MG/ML 4 ML VIAL IV STA (08:58)
--- NOTE | 2018-02-28 08:58 | ED ---
General Adult HPI - General Chief complaint: Shortness of Breath Stated complaint: NEERAJ Source: patient, EMS Mode of arrival: EMS Limitations: no limitations - History of Present Illness Initial comments: Dictation was produced using Nuji dictation software. please excuse any grammatical, word or spelling errors. Chief Complaint: 62-year-old male past medical history of COPD, congestive heart failure presents for shortness of breath History of Present Illness: States that he has been having increased shortness of breath for the past several days. Patient also reports increase in about 10 pounds over the last 2 weeks. She has a past medical history of congestive heart failure. He has history of pacemaker. Patient has 20% ejection fraction. 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 Patient states that he is only on oxygen at night. Denies any chest pain however does have some chest tightness. Denies any cough or productive sputum. Denies any constitutional symptoms. The ROS documented in this emergency department record has been reviewed and confirmed by me. Those systems with pertinent positive or negative responses have been documented in the HPI. All other systems are other negative and/or noncontributory. - Related Data Home Medications Medication Instructions Recorded Confirmed Atorvastatin [Lipitor] 20 mg PO DAILY 05/18/16 02/28/18 Metoprolol Succinate [Toprol XL] 100 mg PO DAILY 05/28/17 02/28/18 Aspirin [Adult Low Dose Aspirin EC] 81 mg PO DAILY 09/11/17 02/28/18 Spironolactone [Aldactone] 25 mg PO DAILY 09/11/17 02/28/18 Furosemide [Lasix] 60 mg PO BID 12/14/17 02/28/18 Previous Rx's Medication Instructions Recorded Lisinopril [Zestril] 2.5 mg PO DAILY #30 tab 09/16/17 Insulin Glargine [Lantus] 20 unit SQ HS #1 vial 12/24/17 Ipratropium-Albuterol Nebulize 3 ml INHALATION RT-QID #120 12/24/17 [Duoneb 0.5 mg-3 mg/3 ml Soln] ampul.neb metFORMIN HCL [Glucophage] 500 mg PO BID #60 tab 12/24/17 Albuterol Inhaler [Ventolin Hfa 1 - 2 puff INHALATION Q4HR PRN 30 02/08/18 Inhaler] Days #1 inhaler Pantoprazole [Protonix] 40 mg PO QAM #30 tablet. 02/08/18 Allergies Allergy/AdvReac Type Severity Reaction Status Date / Time Latex, Natural Rubber Allergy Rash/Hives Verified 02/28/18 08:57 levofloxacin [From Levaquin] Allergy Rash/Hives Verified 02/28/18 08:57 mold Allergy Rash/Hives Verified 02/28/18 08:57 prednisone Allergy Rash/Hives Verified 02/28/18 08:57 STEROIDS Allergy Rash/Hives Uncoded 02/02/18 23:34 Review of Systems ROS Statement: Those systems with pertinent positive or pertinent negative responses have been documented in the HPI. ROS Other: All systems not noted in ROS Statement are negative. Past Medical History Past Medical History: Coronary Artery Disease (CAD), Chest Pain / Angina, Heart Failure, COPD, Diabetes Mellitus, Hyperlipidemia, Myocardial Infarction (VT), Osteoarthritis (OA) Additional Past Medical History / Comment(s): Coronary artery disease with a previous bypass surgery, ischemic cardiomyopathy with ejection fraction of less than 20%,HOME 02 2-2.5 LITERS AT HS, COPD, obstructive sleep apnea with an AHI of 24 currently on auto CPAP unit, obesity, hypertension, AICD placement for ischemic cardiomyopathy, Cardiomyopathy, osteoarthritis, diabetes mellitus, hyperlipidemia, hypertension. Last Myocardial Infarction Date:: UNSURE History of Any Multi-Drug Resistant Organisms: None Reported Past Surgical History: AICD, Coronary Bypass/CABG, Heart Catheterization, Orthopedic Surgery Additional Past Surgical History / Comment(s): Pacemaker and AICD- 10/2013, CABG 1 vessel many yrs ago per pt, BILATERAL SHOULDER SURGERY , steel alcides in leg from fracture, bilat shoulders Past Anesthesia/Blood Transfusion Reactions: No Reported Reaction Type of Cardiac Device: Permanent Pacemaker, AICD Device Placement Date:: Past Psychological History: No Psychological Hx Reported Smoking Status: Current every day smoker Past Alcohol Use History: Occasional Past Drug Use History: None Reported - Past Family History Mother History Unknown: Yes Father Family Medical History: Myocardial Infarction (VT) Additional Family Medical History / Comment(s): Father of a VT at the age of 56yrs. Brother(s) Family Medical History: Cancer General Exam - General Exam Comments Initial Comments: PHYSICAL EXAM: General Impression: Alert and oriented x3, acute distress secondary to dyspnea HEENT: Normocephalic atraumatic, extra-ocular movements intact, pupils equal and reactive to light bilaterally, mucous membranes moist. Cardiovascular: Heart regular rate and rhythm, S1&S2 audible, no murmurs, rubs or gallops Chest: Bilateral lung inspiratory crackles, wheezing to the right upper lobe Abdomen: Bowel sounds present, abdomen soft, non-tender, non-distended, no organomegaly Musculoskeletal: Pulses present and equal in all extremities, 4+ pitting edema to bilateral lower extremities Motor: Power 5/5 bilaterally, no focal deficits noted Neurological: CN II-XII grossly intact, no focal motor or sensory deficits noted Skin: Intact with no visualized rashes Psych: Normal affect and mood Limitations: no limitations Course Vital Signs 02/28/18 02/28/18 02/28/18 08:37 08:57 09:39 Temperature 98.1 F Pulse Rate 74 70 Respiratory 16 30 H 24 Rate Blood Pressure 117/69 124/75 O2 Sat by Pulse 100 100 Oximetry Medical Decision Making - Medical Decision Making ED course: 62-year-old male presents to increasing intensity of shortness of breath. Patient also reports increase in weight gain and worsening orthopnea. Signs upon arrival are within acceptable limits. Physical examination consistent with findings of congestive heart failure.Laboratory evaluation obtained. CBC is unremarkable. Coag panel is unremarkable. Sodium 136. CO2 34. Magnesium 1.5. Troponin is elevated at 0.042. Laboratory evaluation consistent with non-gap acidosis likely secondary to medications. Patient is troponin elevation which appears to be slightly higher than his usual. This is likely secondary to troponin leak from congestive heart failure. Medications are reviewed. Patient states he took an aspirin today. Patient placed on noninvasive ventilation. He is given a dose of benzodiazepines to calm him down in order to tolerate noninvasive ventilation. Patient also given 40 mg of IV Lasix. Patient be admitted to selective care for increased work of breathing, CHF exacerbation. Patient currently hemodynamically stable no other medications indicated at this time. X -ray shows possible right-sided infiltrate. Patient not complaining of any fevers, cough. Patient does have extensive history of COPD. There is some suspicion that this could be COPD exacerbation. Patient given steroids and started on antibiotics. EKG interpretation: Ventricular rate 70, SC interval, QRS 236, QTC 578. No SC prolongation, no QTC prolongation, no ST or T-wave changes noted. No scar Boso criteria met. Overall, this EKG is unremarkable - Lab Data Result diagrams: 02/28/18 08:54 02/28/18 08:54 Lab Results 02/28/18 02/28/18 02/28/18 Range/Units 08:54 08:54 08:54 WBC 6.5 (3.8-10.6) k/uL RBC 3.79 L (4.30-5.90) m/uL Hgb 10.3 L (13.0-17.5) gm/dL Hct 32.8 L (39.0-53.0) % MCV 86.6 (80.0-100.0) fL MCH 27.2 (25.0-35.0) pg MCHC 31.4 (31.0-37.0) g/dL RDW 18.0 H (11.5-15.5) % Plt Count 168 (150-450) k/uL Neutrophils % 73 % Lymphocytes % 15 % Monocytes % 7 % Eosinophils % 3 % Basophils % 0 % Neutrophils # 4.7 (1.3-7.7) k/uL Lymphocytes # 1.0 (1.0-4.8) k/uL Monocytes # 0.4 (0-1.0) k/uL Eosinophils # 0.2 (0-0.7) k/uL Basophils # 0.0 (0-0.2) k/uL Hypochromasia Moderate Poikilocytosis Slight Anisocytosis Slight PT (9.0-12.0) sec INR (<1.2) APTT (22.0-30.0) sec Sodium 136 L (137-145) mmol/L Potassium 3.8 (3.5-5.1) mmol/L Chloride 95 L (98-107) mmol/L Carbon Dioxide 34 H (22-30) mmol/L Anion Gap 7 mmol/L BUN 27 H (9-20) mg/dL Creatinine 1.03 (0.66-1.25) mg/dL Est GFR (CKD-EPI)AfAm 90 (>60 ml/min/1.73 sqM) Est GFR (CKD-EPI)NonAf 78 (>60 ml/min/1.73 sqM) Glucose 79 (74-99) mg/dL Calcium 8.9 (8.4-10.2) mg/dL Magnesium 1.5 L (1.6-2.3) mg/dL Total Bilirubin 2.1 H (0.2-1.3) mg/dL AST 36 (17-59) U/L ALT 33 (21-72) U/L Alkaline Phosphatase 99 (38-126) U/L Total Creatine Kinase 116 (55-170) U/L CK-MB (CK-2) 4.1 H* (0.0-2.4) ng/mL CK-MB (CK-2) Rel Index 3.5 Troponin I 0.042 H* (0.000-0.034) ng/mL NT-Pro-B Natriuret Pep pg/mL Total Protein 6.0 L (6.3-8.2) g/dL Albumin 3.9 (3.5-5.0) g/dL 02/28/18 02/28/18 Range/Units 08:54 08:54 WBC (3.8-10.6) k/uL RBC (4.30-5.90) m/uL Hgb (13.0-17.5) gm/dL Hct (39.0-53.0) % MCV (80.0-100.0) fL MCH (25.0-35.0) pg MCHC (31.0-37.0) g/dL RDW (11.5-15.5) % Plt Count (150-450) k/uL Neutrophils % % Lymphocytes % % Monocytes % % Eosinophils % % Basophils % % Neutrophils # (1.3-7.7) k/uL Lymphocytes # (1.0-4.8) k/uL Monocytes # (0-1.0) k/uL Eosinophils # (0-0.7) k/uL Basophils # (0-0.2) k/uL Hypochromasia Poikilocytosis Anisocytosis PT 12.2 H (9.0-12.0) sec INR 1.3 H (<1.2) APTT 21.5 L (22.0-30.0) sec Sodium (137-145) mmol/L Potassium (3.5-5.1) mmol/L Chloride (98-107) mmol/L Carbon Dioxide (22-30) mmol/L Anion Gap mmol/L BUN (9-20) mg/dL Creatinine (0.66-1.25) mg/dL Est GFR (CKD-EPI)AfAm (>60 ml/min/1.73 sqM) Est GFR (CKD-EPI)NonAf (>60 ml/min/1.73 sqM) Glucose (74-99) mg/dL Calcium (8.4-10.2) mg/dL Magnesium (1.6-2.3) mg/dL Total Bilirubin (0.2-1.3) mg/dL AST (17-59) U/L ALT (21-72) U/L Alkaline Phosphatase (38-126) U/L Total Creatine Kinase (55-170) U/L CK-MB (CK-2) (0.0-2.4) ng/mL CK-MB (CK-2) Rel Index Troponin I (0.000-0.034) ng/mL NT-Pro-B Natriuret Pep 5110 pg/mL Total Protein (6.3-8.2) g/dL Albumin (3.5-5.0) g/dL Disposition Clinical Impression: Systolic congestive heart failure, Acute respiratory failure, Congestive heart failure Disposition: ADMITTED IP TO THIS HOSP Condition: Fair Referrals: Mary Merritt MD [Primary Care Provider] - 1-2 days Time of Disposition: 10:41
[2018-02-28 09:12] LABS: Anisocytosis Slight; Basophils % (A) 0 %; Eosinophils # (A) 0.2 k/uL (0-0.7); Eosinophils % (A) 3 %; HCT 32.8 % (39.0-53.0); HGB 10.3 gm/dL (13.0-17.5); Hypochromasia Moderate; Lymphocytes % (A) 15 %; MCH 27.2 pg (25.0-35.0); MCHC 31.4 g/dL (31.0-37.0); MCV 86.6 fL (80.0-100.0); Mean Platelet Volume 7.4; Monocytes # (A) 0.4 k/uL (0-1.0); Monocytes % (A) 7 %; Neutrophils # (A) 4.7 k/uL (1.3-7.7); Neutrophils % (A) 73 %; Platelet Count 168 k/uL (150-450); Poikilocytosis Slight; RBC 3.79 m/uL (4.30-5.90); WBC 6.5 k/uL (3.8-10.6)
[2018-02-28 09:23] LABS: Albumin 3.9 g/dL (3.5-5.0); Calcium 8.9 mg/dL (8.4-10.2); Magnesium 1.5 mg/dL (1.6-2.3); Total Bilirubin 2.1 mg/dL (0.2-1.3)
[2018-02-28 09:27] LABS: INR 1.3 (<1.2); Prothrombin Time 12.2 sec (9.0-12.0)
[2018-02-28 09:30] LABS: Partial Thromboplastin Time 21.5 sec (22.0-30.0)
[2018-02-28 09:31] LABS: Potassium 3.8 mmol/L (3.5-5.1)
[2018-02-28 10:01] LABS: Creatine Kinase MB 4.1 ng/mL (0.0-2.4)
--- NOTE | 2018-02-28 10:01 | XR ---
EXAMINATION TYPE: XR chest 1V portable DATE OF EXAM: 02/28/2018 COMPARISON: 02/03/2018 INDICATION: Difficulty breathing TECHNIQUE: Single frontal view of the chest is obtained. FINDINGS: The heart size is normal. The pulmonary vasculature is normal. Mild infiltrate is at the right base. Correlate for atelectasis and pneumonia. Pacemaker overlies lef t chest. IMPRESSION: 1. Mild infiltrate at the right base. Correlate for developing right lower lobe pneumonia. Atelectasi s could be considered. Follow-up can be performed as clinically indicated.
[2018-02-28 10:02] LABS: Troponin I 0.042 ng/mL (0.000-0.034)
[2018-02-28] MEDS: MAGNESIUM SULFATE-D5W PMX 1 GM in DEXTROSE/WATER 1 100ML.BAG IVPB SCH ×2 (10:07→11:32)
[2018-02-28] MEDS ORDERED: NALOXONE 0.4 MG/ML 1 ML VIAL IV PRN (10:32)
[2018-02-28] MEDS ORDERED: METOPROLOL SUCCINATE (ER) 100 MG TAB.ER.24H PO SCH (12:00)
[2018-02-28] MEDS: IPRATROPIUM-ALBUTEROL 3 ML NEB INHALATION SCH ×3 (12:10→19:25)
[2018-02-28] MEDS: INSULIN ASPART 100 UNIT/ML 1 ML 10 ML VIAL SQ SCH ×3 (13:20→20:56)
--- NOTE | 2018-02-28 13:40 | P.HPIM ---
History of Present Illness 62-year-old pleasant gentleman with the history of COPD, CHF ejection fraction less than 20% with an AICD came in with complaints of shortness of breath going on for about a week along with pedal edema weight gain of about 10 pounds for last 2 weeks with significant orthopnea and paroxysmal lateral dyspnea. Patient is found to have highly elevated BNP with pulmonary edema. Patient denied any sputum production has he is not able to bring up anything. Patient denied any fever chills. Patient does not appear to have anemia pneumonia clinically. Patient on exam he appears to have very minimal wheeze predominantly has JVD predominantly has heart failure exacerbation was started on IV Lasix patient was started on inhaled stridor do not believe patient will require IV steroid at this time are oral steroids. Cardiology was consulted. Review of Systems REVIEW OF SYSTEMS: CONSTITUTIONAL: No fever, no malaise, no fatigue. HEENT: No recent visual problems or hearing problems. Denied any sore throat. CARDIOVASCULAR: No chest pain, no palpitations, no syncope. PULMONARY: , no hemoptysis. GASTROINTESTINAL: No diarrhea, no nausea, no vomiting, no abdominal pain. Normoactive bowel sounds. NEUROLOGICAL: No headaches, no weakness, no numbness. HEMATOLOGICAL: Denies any bleeding or petechiae. GENITOURINARY: Denies any burning micturition, frequency, or urgency. MUSCULOSKELETAL/RHEUMATOLOGICAL: Denies any joint pain, swelling, or any muscle pain. ENDOCRINE: Denies any polyuria or polydipsia. The rest of the 14-point review of systems is negative. Past Medical History Past Medical History: Coronary Artery Disease (CAD), Chest Pain / Angina, Heart Failure, COPD, Diabetes Mellitus, Hyperlipidemia, Myocardial Infarction ([place]), Osteoarthritis (OA) Additional Past Medical History / Comment(s): Coronary artery disease with a previous bypass surgery, ischemic cardiomyopathy with ejection fraction of less than 20%,HOME 02 2-2.5 LITERS AT HS, COPD, obstructive sleep apnea with an AHI of 24 currently on auto CPAP unit, obesity, hypertension, AICD placement for ischemic cardiomyopathy, Cardiomyopathy, osteoarthritis, diabetes mellitus, hyperlipidemia, hypertension. Last Myocardial Infarction Date:: UNSURE History of Any Multi-Drug Resistant Organisms: None Reported Past Surgical History: AICD, Coronary Bypass/CABG, Heart Catheterization, Orthopedic Surgery Additional Past Surgical History / Comment(s): Pacemaker and AICD- 10/2013, CABG 1 vessel many yrs ago per pt, BILATERAL SHOULDER SURGERY , steel alcides in leg from fracture, bilat shoulders Past Anesthesia/Blood Transfusion Reactions: No Reported Reaction Type of Cardiac Device: Permanent Pacemaker, AICD Device Placement Date:: Past Psychological History: No Psychological Hx Reported Smoking Status: Current every day smoker Past Alcohol Use History: Occasional Past Drug Use History: None Reported - Past Family History Mother History Unknown: Yes Father Family Medical History: Myocardial Infarction (DE) Additional Family Medical History / Comment(s): Father of a [place] at the age of 56yrs. Brother(s) Family Medical History: Cancer Medications and Allergies Home Medications Medication Instructions Recorded Confirmed Type Atorvastatin [Lipitor] 20 mg PO DAILY 05/18/16 02/28/18 History Metoprolol Succinate [Toprol XL] 100 mg PO DAILY 05/28/17 02/28/18 History Aspirin [Adult Low Dose Aspirin EC] 81 mg PO DAILY 09/11/17 02/28/18 History Spironolactone [Aldactone] 25 mg PO DAILY 09/11/17 02/28/18 History Lisinopril [Zestril] 2.5 mg PO DAILY #30 tab 09/16/17 02/28/18 Rx Furosemide [Lasix] 60 mg PO BID 12/14/17 02/28/18 History Insulin Glargine [Lantus] 20 unit SQ HS #1 vial 12/24/17 02/28/18 Rx Ipratropium-Albuterol Nebulize 3 ml INHALATION RT-QID #120 12/24/17 02/28/18 Rx [Duoneb 0.5 mg-3 mg/3 ml Soln] ampul.neb metFORMIN HCL [Glucophage] 500 mg PO BID #60 tab 12/24/17 02/28/18 Rx Albuterol Inhaler [Ventolin Hfa 1 - 2 puff INHALATION Q4HR PRN 30 02/08/1802/28 Rx Inhaler] Days #1 inhaler Pantoprazole [Protonix] 40 mg PO QAM #30 tablet. 02/08/18 02/28/18 Rx Allergies Allergy/AdvReac Type Severity Reaction Status Date / Time Latex, Natural Rubber Allergy Rash/Hives Verified 02/28/18 08:57 levofloxacin [From Levaquin] Allergy Rash/Hives Verified 02/28/18 08:57 mold Allergy Rash/Hives Verified 02/28/18 08:57 prednisone Allergy Rash/Hives Verified 02/28/18 08:57 STEROIDS Allergy Rash/Hives Uncoded 02/02/18 23:34 Physical Exam Vitals: Vital Signs Temp Pulse Resp BP Pulse Ox 02/28/18 12:20 57 L 02/28/18 12:12 55 L 02/28/18 11:32 71 18 126/74 100 02/28/18 09:39 70 24 124/75 100 02/28/18 08:57 30 H 02/28/18 08:37 98.1 F 74 16 117/69 100 Intake and Output 02/27/18 02/28/18 02/28/18 22:59 06:59 14:59 Other: Weight 112.037 kg PHYSICAL EXAMINATION: GENERAL: The patient is alert and oriented x3, not in any acute distress. Well developed, well nourished. HEENT: Pupils are round and equally reacting to light. EOMI. No scleral icterus. No conjunctival pallor. Normocephalic, atraumatic. No pharyngeal erythema. No thyromegaly. CARDIOVASCULAR: S1 and S2 present. No murmurs, rubs, or gallops. PULMONARY: Chest is clear to auscultation, no wheezing or crackles. Patient does have elevated JVD ABDOMEN: Soft, nontender, nondistended, normoactive bowel sounds. No palpable organomegaly. MUSCULOSKELETAL: No joint swelling or deformity. EXTREMITIES: No cyanosis, clubbing, he does have 2+ pitting pedal edema in bilateral lower extremities NEUROLOGICAL: Gross neurological examination did not reveal any focal deficits. SKIN: No rashes. Results CBC & Chem 7: 02/28/18 08:54 02/28/18 08:54 Labs: Abnormal Lab Results - Last 24 Hours (Table) 02/28/18 02/28/18 02/28/18 Range/Units 08:54 08:54 08:54 RBC 3.79 L (4.30-5.90) m/uL Hgb 10.3 L (13.0-17.5) gm/dL Hct 32.8 L (39.0-53.0) % RDW 18.0 H (11.5-15.5) % PT (9.0-12.0) sec INR (<1.2) APTT (22.0-30.0) sec Sodium 136 L (137-145) mmol/L Chloride 95 L (98-107) mmol/L Carbon Dioxide 34 H (22-30) mmol/L BUN 27 H (9-20) mg/dL Magnesium 1.5 L (1.6-2.3) mg/dL Total Bilirubin 2.1 H (0.2-1.3) mg/dL CK-MB (CK-2) 4.1 H* (0.0-2.4) ng/mL Troponin I 0.042 H* (0.000-0.034) ng/mL Total Protein 6.0 L (6.3-8.2) g/dL 02/28/18 Range/Units 08:54 RBC (4.30-5.90) m/uL Hgb (13.0-17.5) gm/dL Hct (39.0-53.0) % RDW (11.5-15.5) % PT 12.2 H (9.0-12.0) sec INR 1.3 H (<1.2) APTT 21.5 L (22.0-30.0) sec Sodium (137-145) mmol/L Chloride (98-107) mmol/L Carbon Dioxide (22-30) mmol/L BUN (9-20) mg/dL Magnesium (1.6-2.3) mg/dL Total Bilirubin (0.2-1.3) mg/dL CK-MB (CK-2) (0.0-2.4) ng/mL Troponin I (0.000-0.034) ng/mL Total Protein (6.3-8.2) g/dL Assessment and Plan Plan: -Acute hypoxic respiratory failure: Secondary to congestive heart failure exacerbation patient has chronic systolic dysfunction with acute exacerbation. Patient was started on IV Lasix continue with lisinopril cardiology was consulted. -COPD with very minimal exacerbation will not require any systemic steroids doxycycline although will be continued will be started on inhaled steroids. -Hypomagnesemia magnesium will be supplemented -Minimally elevated troponin secondary to heart failure. -Type 2 diabetes mellitus patient will be resumed on his home regimen along with sliding scale insulin. -Coronary artery disease, his ischemic cardiomyopathy patient had a CABG in the past stents in the past and has a an AICD in the past -
[2018-02-28] MEDS: SPIRONOLACTONE 25 MG TAB PO SCH (14:03)
--- NOTE | 2018-02-28 15:14 | CONS ---
CONSULTATION ATTENDING: Dr. Merritt Mr. Colvin is a 62-year-old male with known history of severe ischemic cardiomyopathy status post ICD implantation, history of chronic obstructive lung disease and chronic tobacco use, who was admitted to the hospital in November. He presented again with progressive dyspnea, worsening peripheral edema, cough. The patient has been coughing, but not productive. He denies any chest pain. He denies any dizziness or palpitation. He has been followed by Dr. [place] on a regular basis. He denies any clear PND, but he has new worsening edema and weight gain. His last echocardiogram was performed in September of this year that revealed a severely impaired left ventricular systolic function. The patient has a prior history of alcohol intake in the form of beer as well as the history of chronic tobacco use. His coronary risk factors remarkable for the history of diabetes, hyperlipidemia, hypertension and smoking. His medications include aspirin once a day, Lipitor 20 mg daily, Lasix 60 mg twice a day, insulin, lisinopril 2.5 mg daily, metoprolol succinate at 100 mg daily, spironolactone 25 mg daily, and metformin. REVIEW OF SYSTEMS: RESPIRATORY SYSTEM: He has a history of dyspnea on exertion, chronic obstructive lung disease, has been followed by Dr. Iraheta on a regular basis. GI SYSTEM: No recent GI bleeding. No peptic ulcer disease. SYSTEM: No dysuria or hematuria. NERVOUS SYSTEM: No history of stroke or seizure. PAST SURGICAL HISTORY: Remarkable for the coronary artery bypass grafting and ICD implantation. PHYSICAL EXAMINATION: He is a 62-year-old male, alert, oriented, moderately dyspneic. Blood pressure 127/70 with a heart in 70s. HEAD: Normocephalic. EYES: Sclerae anicteric. NECK: Good upstroke with increased jugular venous pressure. LUNGS: With severe decrease in the air exchange with scattered wheezes and rhonchi. HEART: Regular rate and rhythm. S1, S2. No S3 with a systolic murmur heard at the base, ejection type 2/6. No diastolic murmur, no rub. ABDOMEN: Soft, nontender. Positive bowel sounds. No organomegaly. EXTREMITIES: +2 edema bilaterally. EKG revealed a sinus mechanism with evidence of 100% ventricle pacing. Chest x-ray showed possible right lower lobe infiltrate. LAB DATA: Lab data revealed an INR 1.3, hemoglobin 10.3, white blood cell of 6.5, BUN and creatinine 27 and 1.03. NT proBNP is 5110, which is lower than it was in November. His troponin 0.042, which has been elevated when he was admitted in the past. IMPRESSION: 1. Exacerbation of his dyspnea with a combination of possible exacerbation of chronic obstructive pulmonary disease and congestive heart failure with known severe ischemic cardiomyopathy. 2. History of congestive heart failure with impaired left ventricular systolic function. 3. Status post coronary artery bypass grafting. 4. Status post ICD implant. 5. Chronic tobacco use. 6. Hypertension. 7. Hyperlipidemia. 8. Diabetes mellitus. RECOMMENDATION: From the cardiac standpoint, the patient received intravenous diuretics and we will continue on the beta hermilo and the NANNETTE inhibitor and the Aldactone. We will follow his renal function and blood pressure and depending on his progress, further recommendation will be made. Thank you for this consult. We will follow with you. DENI / PRO: [id number] /
[2018-02-28] MEDS: IPRATROPIUM-ALBUTEROL 3 ML NEB INHALATION PRN ×2 (15:21→23:53)
[2018-02-28] MEDS ORDERED: FUROSEMIDE 10 MG/ML 10 ML VIAL IV SCH (16:00)
[2018-02-28 16:26] LABS: Glucose,Whole Blood 213 mg/dL (75-99)
[2018-02-28] MEDS: FUROSEMIDE 10 MG/ML 10 ML VIAL IV SCH ×2 (17:24→23:48)
[2018-02-28] MEDS: HEPARIN SODIUM,PORCINE 5,000 UNIT/ML 1 ML VIAL SQ SCH ×2 (17:25→23:48)
[2018-02-28] MEDS: SYMBICORT 160-4.5 MCG INHALER INHALATION SCH (19:22)
[2018-02-28 20:51] LABS: Glucose,Whole Blood 118 mg/dL (75-99)
[2018-02-28] MEDS: INSULIN DETEMIR 100 UNIT/ML 10 ML VIAL SQ SCH (21:01)
[2018-02-28] MEDS: DOXYCYCLINE MONOHYDRATE 100 MG CAPSULE PO SCH (21:01)
[2018-02-28] MEDS: HYDROcodone/APAP 5-325MG 1 EACH TAB PO PRN (22:23)
[2018-03-01] MEDS: IPRATROPIUM-ALBUTEROL 3 ML NEB INHALATION SCH ×4 (03:38→19:32)
[2018-03-01] MEDS: HYDROcodone/APAP 5-325MG 1 EACH TAB PO PRN ×3 (03:55→21:14)
[2018-03-01 05:49] LABS: Glucose,Whole Blood 61 mg/dL (75-99)
[2018-03-01] MEDS: INSULIN ASPART 100 UNIT/ML 1 ML 10 ML VIAL SQ SCH ×4 (06:09→21:13)
[2018-03-01 06:14] LABS: Glucose,Whole Blood 100 mg/dL (75-99)
[2018-03-01] MEDS: PANTOPRAZOLE 40 MG TABLET PO SCH (06:29)
[2018-03-01 06:55] LABS: Anion Gap 8 mmol/L; Blood Urea Nitrogen 28 mg/dL (9-20); Calcium 8.5 mg/dL (8.4-10.2); Carbon Dioxide 34 mmol/L (22-30); Chloride 94 mmol/L (98-107); Magnesium 1.8 mg/dL (1.6-2.3); Potassium 3.4 mmol/L (3.5-5.1); Sodium 136 mmol/L (137-145)
[2018-03-01 07:08] LABS: Glucose 44 mg/dL (74-99)
[2018-03-01] MEDS: DOXYCYCLINE MONOHYDRATE 100 MG CAPSULE PO SCH ×2 (08:02→19:57)
[2018-03-01] MEDS: HEPARIN SODIUM,PORCINE 5,000 UNIT/ML 1 ML VIAL SQ SCH ×3 (08:02→23:58)
[2018-03-01] MEDS: ASPIRIN 81 MG PO SCH (08:02)
[2018-03-01] MEDS: ATORVASTATIN 20 MG TAB PO SCH (08:03)
[2018-03-01] MEDS: LISINOPRIL 2.5 MG TAB PO SCH (08:03)
[2018-03-01] MEDS: SPIRONOLACTONE 25 MG TAB PO SCH (08:03)
[2018-03-01] MEDS: METOPROLOL SUCCINATE (ER) 50 MG TAB.ER.24H PO SCH (08:03)
[2018-03-01] MEDS: SYMBICORT 160-4.5 MCG INHALER INHALATION SCH ×2 (08:12→19:32)
[2018-03-01 10:02] VITALS: BMI 32.9
[2018-03-01] MEDS ORDERED: Potassium Replacement Protocol 1 EACH MISC MISCELLANE PRN (10:04)
[2018-03-01] MEDS ORDERED: Magnesium Replacement Protocol 1 EACH MISC MISCELLANE PRN (10:04)
[2018-03-01] MEDS: FUROSEMIDE 10 MG/ML 10 ML VIAL IV SCH ×3 (10:23→23:59)
[2018-03-01] MEDS: POTASSIUM CHLORIDE ER 20 MEQ TAB.ER PO SCH ×2 (10:27→11:45)
[2018-03-01 11:46] LABS: Glucose,Whole Blood 117 mg/dL (75-99)
--- NOTE | 2018-03-01 13:22 | P.PN ---
Subjective 68-year-old gentleman was admitted secondary to CHF exacerbation patient had ejection fraction of 20% does have a CD does have history of COPD. Patient is clinically feeling better today but still quite a bit short of breath will require IV Lasix which will be continued monitor kidney function is and os pedal edema improved patient still has minimal expiratory wheeze on exam Constitutional: Denied any fatigue denied any fever. Cardio vascular: denied any chest pain, palpitations Gastrointestinal denied any nausea vomiting Pulmonary: As mentioned in HPI Neurologic denied any new focal deficits Objective - Vital Signs Vital signs: Vital Signs Temp 98.2 F 03/01/18 11:15 Pulse 68 03/01/18 11:29 Resp 22 03/01/18 11:29 BP 149/87 03/01/18 11:15 Pulse Ox 100 03/01/18 11:15 Intake & Output 02/28/18 03/01/18 03/01/18 18:59 06:59 18:59 Intake Total 180 490 500 Output Total 400 800 550 Balance -220 -310 -50 Weight 112.037 kg 110.1 kg 110.1 kg Intake: IV 10 20 Invasive Line 2 10 20 Oral 180 480 480 Output: Urine 400 800 550 Other: Voiding Method Urinal Urinal Urinal # Voids 2 - Exam PHYSICAL EXAMINATION: GENERAL: The patient is alert and oriented x3, not in any acute distress. Well developed, well nourished. HEENT: Pupils are round and equally reacting to light. EOMI. No scleral icterus. No conjunctival pallor. Normocephalic, atraumatic. No pharyngeal erythema. No thyromegaly. CARDIOVASCULAR: S1 and S2 present. No murmurs, rubs, or gallops. PULMONARY: Chest is clear to auscultation, no wheezing or crackles. Patient does have elevated JVD ABDOMEN: Soft, nontender, nondistended, normoactive bowel sounds. No palpable organomegaly. MUSCULOSKELETAL: No joint swelling or deformity. EXTREMITIES: No cyanosis, clubbing, pedal edema improved significantly compared to yesterday NEUROLOGICAL: Gross neurological examination did not reveal any focal deficits. SKIN: No rashes. - Labs CBC & Chem 7: 02/28/18 08:54 03/01/18 05:58 Labs: Abnormal Lab Results - Last 24 Hours (Table) 02/28/18 02/28/18 02/28/18 Range/Units 15:04 16:10 20:22 Sodium (137-145) mmol/L Potassium (3.5-5.1) mmol/L Chloride (98-107) mmol/L Carbon Dioxide (22-30) mmol/L BUN (9-20) mg/dL Glucose (74-99) mg/dL POC Glucose (mg/dL) 213 H (75-99) mg/dL Troponin I 0.040 H* 0.041 H* (0.000-0.034) ng/mL 02/28/18 03/01/18 03/01/18 Range/Units 20:48 05:47 05:58 Sodium 136 L (137-145) mmol/L Potassium 3.4 L (3.5-5.1) mmol/L Chloride 94 L (98-107) mmol/L Carbon Dioxide 34 H (22-30) mmol/L BUN 28 H (9-20) mg/dL Glucose 44 L* (74-99) mg/dL POC Glucose (mg/dL) 118 H 61 L (75-99) mg/dL Troponin I (0.000-0.034) ng/mL 03/01/18 03/01/18 Range/Units 06:13 11:44 Sodium (137-145) mmol/L Potassium (3.5-5.1) mmol/L Chloride (98-107) mmol/L Carbon Dioxide (22-30) mmol/L BUN (9-20) mg/dL Glucose (74-99) mg/dL POC Glucose (mg/dL) 100 H 117 H (75-99) mg/dL Troponin I (0.000-0.034) ng/mL Assessment and Plan Plan: -Acute hypoxic respiratory failure: Secondary to congestive heart failure exacerbation patient has chronic systolic dysfunction with acute exacerbation. Patient was started on IV Lasix continue with lisinopril cardiology elevated the patient -COPD with very minimal exacerbation will not require any systemic steroids doxycycline although will be continued will be started on inhaled steroids. -Hypomagnesemia magnesium will be supplemented -Minimally elevated troponin secondary to heart failure. -Type 2 diabetes mellitus patient will be resumed on his home regimen along with sliding scale insulin. -Coronary artery disease, his ischemic cardiomyopathy patient had a CABG in the past stents in the past and has a an AICD in the past -
--- NOTE | 2018-03-01 14:35 | P.CNPUL ---
History of Present Illness Consult date: 03/01/18 Reason for consult: dyspnea, COPD History of present illness: A pleasant 60-year-old male patient with known history of obesity with a BMI of 32.9 in addition to history of COPD and congestion heart failure with an ejection fraction of 20% and the patient has an AICD in place. In addition, the patient has history of coronary artery disease with previous bypass surgery and history of diabetes mellitus, hypertension and hyperlipidemia. The patient has had multiple hospitalization for exacerbation of COPD and CHF. He was in the hospital approximately 3 weeks ago and he was discharged home on a combination of Lasix 60 mg by mouth twice a day and Aldactone 25 mg by mouth daily. He came into the hospital because of worsening shortness of breath and increased pedal edema in addition to 10 pound weight gain over the past 2 weeks. He was having symptoms of orthopnea and PND. The patient has also some limited cough and bronchospasm wheezing which is typical of his underlying COPD. He claims that he is not smoking for the time being. Since he came in, the patient was diuresed with IV Lasix and the fluid balance is improving and there is improvement in the lower extremity edema and the patient has lost approximately 2 pounds. No angina. No pleurisy. No hemoptysis. No altered mentation at this point in time. Review of Systems CONSTITUTIONAL: No fever, no malaise, no fatigue. HEENT: No recent visual problems or hearing problems. Denied any sore throat. CARDIOVASCULAR: No chest pain, no palpitations, no syncope. There is history of orthopnea and PND's. PULMONARY: , no hemoptysis. Worsening shortness of breath as discussed above. The patient also has chronic cough and wheeze. GASTROINTESTINAL: No diarrhea, no nausea, no vomiting, no abdominal pain. Normoactive bowel sounds. NEUROLOGICAL: No headaches, no weakness, no numbness. HEMATOLOGICAL: Denies any bleeding or petechiae. GENITOURINARY: Denies any burning micturition, frequency, or urgency. MUSCULOSKELETAL/RHEUMATOLOGICAL: Denies any joint pain, swelling, or any muscle pain. ENDOCRINE: Denies any polyuria or polydipsia. Past Medical History Past Medical History: Coronary Artery Disease (CAD), Chest Pain / Angina, Heart Failure, COPD, Diabetes Mellitus, Hyperlipidemia, Myocardial Infarction (MA), Osteoarthritis (OA) Additional Past Medical History / Comment(s): Coronary artery disease with a previous bypass surgery, ischemic cardiomyopathy with ejection fraction of less than 20%,HOME 02 2-2.5 LITERS AT HS, COPD, obstructive sleep apnea with an AHI of 24 currently on auto CPAP unit, obesity, hypertension, AICD placement for ischemic cardiomyopathy, Cardiomyopathy, osteoarthritis, diabetes mellitus, hyperlipidemia, hypertension.past fx rt leg.tinnitus Last Myocardial Infarction Date:: UNSURE History of Any Multi-Drug Resistant Organisms: None Reported Past Surgical History: AICD, Coronary Bypass/CABG, Heart Catheterization, Orthopedic Surgery Additional Past Surgical History / Comment(s): Pacemaker and AICD- 10/2013, CABG 1 vessel many yrs ago per pt, BILATERAL SHOULDER SURGERY , steel alcides in rt leg d /t fracture, bilat shoulders Past Anesthesia/Blood Transfusion Reactions: No Reported Reaction Type of Cardiac Device: Permanent Pacemaker, AICD Device Placement Date:: Smoking Status: Current every day smoker - Past Family History Mother History Unknown: Yes Father Family Medical History: Myocardial Infarction (MA) Additional Family Medical History / Comment(s): Father of a MA at the age of 56yrs. Brother(s) Family Medical History: Cancer Medications and Allergies Home Medications Medication Instructions Recorded Confirmed Type Atorvastatin [Lipitor] 20 mg PO DAILY 05/18/16 02/28/18 History Metoprolol Succinate [Toprol XL] 100 mg PO DAILY 05/28/17 02/28/18 History Aspirin [Adult Low Dose Aspirin EC] 81 mg PO DAILY 09/11/17 02/28/18 History Spironolactone [Aldactone] 25 mg PO DAILY 09/11/17 02/28/18 History Lisinopril [Zestril] 2.5 mg PO DAILY #30 tab 09/16/17 02/28/18 Rx Furosemide [Lasix] 60 mg PO BID 12/14/17 02/28/18 History Insulin Glargine [Lantus] 20 unit SQ HS #1 vial 12/24/17 02/28/18 Rx Ipratropium-Albuterol Nebulize 3 ml INHALATION RT-QID #120 12/24/17 02/28/18 Rx [Duoneb 0.5 mg-3 mg/3 ml Soln] ampul.neb metFORMIN HCL [Glucophage] 500 mg PO BID #60 tab 12/24/17 02/28/18 Rx Albuterol Inhaler [Ventolin Hfa 1 - 2 puff INHALATION Q4HR PRN 30 02/08/1802/28 Rx Inhaler] Days #1 inhaler Pantoprazole [Protonix] 40 mg PO QAM #30 tablet. 02/08/18 02/28/18 Rx Allergies Allergy/AdvReac Type Severity Reaction Status Date / Time Latex, Natural Rubber Allergy Rash/Hives Verified 02/28/18 08:57 levofloxacin [From Levaquin] Allergy Rash/Hives Verified 02/28/18 08:57 mold Allergy Rash/Hives Verified 02/28/18 08:57 prednisone Allergy Rash/Hives Verified 02/28/18 08:57 STEROIDS Allergy Rash/Hives Uncoded 02/02/18 23:34 Physical Exam Vitals: Vital Signs Temp Pulse Pulse Resp BP BP BP 03/01/18 14:10 77 18 03/01/18 13:59 78 18 03/01/18 11:29 68 22 03/01/18 11:15 98.2 F 68 22 149/87 03/01/18 08:24 78 18 03/01/18 08:13 76 18 03/01/18 08:00 98.2 F 71 18 118/70 03/01/18 03:53 70 03/01/18 03:47 97.2 F L 69 22 123/61 03/01/18 03:41 69 03/01/18 00:05 70 03/01/18 00:00 96.8 F L 78 20 113/72 02/28/18 23:53 71 02/28/18 23:41 02/28/18 20:50 97.0 F L 70 20 102/67 02/28/18 19:35 72 02/28/18 19:25 70 02/28/18 16:00 97.0 F L 20 130/74 02/28/18 15:39 68 02/28/18 15:26 67 02/28/18 14:46 97.0 F L 70 22 137/73 Pulse Ox 03/01/18 14:10 03/01/18 13:59 03/01/18 11:29 03/01/18 11:15 100 03/01/18 08:24 03/01/18 08:13 100 03/01/18 08:00 100 03/01/18 03:53 03/01/18 03:47 100 03/01/18 03:41 03/01/18 00:05 03/01/18 00:00 100 02/28/18 23:53 02/28/18 23:41 100 02/28/18 20:50 98 02/28/18 19:35 02/28/18 19:25 02/28/18 16:00 99 02/28/18 15:39 02/28/18 15:26 02/28/18 14:46 100 Intake and Output 02/28/18 03/01/18 03/01/18 22:59 06:59 14:59 Intake Total 180 490 500 Output Total 550 650 550 Balance -370 -160 -50 Intake: IV 10 20 Invasive Line 2 10 20 Oral 180 480 480 Output: Urine 550 650 550 Other: Voiding Method Urinal Urinal Urinal # Voids 2 Weight 110.1 kg 110.1 kg Gen. appearance the patient is calm comfortable likely distress. Head exam was generally normal. There was no scleral icterus or corneal arcus. Mucous membranes were moist. Neck is short and supple and the patient has significant crowding of the posterior oropharynx. There is no goiter or neck masses. Lungs sounds are diminished and there is prolongation of expiratory phase of breathing and scattered expiratory wheezes without the lung his bilaterally. Few crackles also can be appreciated the lung bases. Cardiac exam revealed the PMI to be normally situated and sized. The rhythm was regular and no extrasystoles were noted during several minutes of auscultation. The first and second heart sounds were normal and physiologic splitting of the second heart sound was noted. There were no murmurs, rubs, clicks, or gallops. Abdominal exam revealed normal bowel sounds. The abdomen was soft, non-tender, and without masses, organomegaly, or appreciable enlargement of the abdominal aorta. Examination of the extremities revealed easily palpable radial, femoral and pedal pulses. There was no cyanosis, clubbing and there is +1 pitting edema Examination of the skin revealed no evidence of significant rashes, suspicious appearing nevi or other concerning lesions. Neurologically the patient is awake and alert and there is no focal neurological deficit. Results - Laboratory Findings CBC and BMP: 02/28/18 08:54 03/01/18 05:58 PT/INR, D-dimer PT 12.2 sec (9.0-12.0) H 02/28/18 08:54 INR 1.3 (<1.2) H 02/28/18 08:54 Abnormal lab findings: Abnormal Labs 02/28/18 02/28/18 02/28/18 08:54 08:54 08:54 RBC 3.79 L Hgb 10.3 L Hct 32.8 L RDW 18.0 H PT INR APTT Sodium 136 L Potassium Chloride 95 L Carbon Dioxide 34 H BUN 27 H Glucose POC Glucose (mg/dL) Magnesium 1.5 L Total Bilirubin 2.1 H CK-MB (CK-2) 4.1 H* Troponin I 0.042 H* Total Protein 6.0 L 02/28/18 02/28/18 02/28/18 08:54 15:04 16:10 RBC Hgb Hct RDW PT 12.2 H INR 1.3 H APTT 21.5 L Sodium Potassium Chloride Carbon Dioxide BUN Glucose POC Glucose (mg/dL) 213 H Magnesium Total Bilirubin CK-MB (CK-2) Troponin I 0.040 H* Total Protein 02/28/18 02/28/18 03/01/18 20:22 20:48 05:47 RBC Hgb Hct RDW PT INR APTT Sodium Potassium Chloride Carbon Dioxide BUN Glucose POC Glucose (mg/dL) 118 H 61 L Magnesium Total Bilirubin CK-MB (CK-2) Troponin I 0.041 H* Total Protein 03/01/18 03/01/18 03/01/18 05:58 06:13 11:44 RBC Hgb Hct RDW PT INR APTT Sodium 136 L Potassium 3.4 L Chloride 94 L Carbon Dioxide 34 H BUN 28 H Glucose 44 L* POC Glucose (mg/dL) 100 H 117 H Magnesium Total Bilirubin CK-MB (CK-2) Troponin I Total Protein - Diagnostic Findings Chest x-ray: image reviewed Assessment and Plan Plan: Assessment 1 acute CHF/COPD exacerbation with secondary shortness of breath and hypoxic respiratory failure. The patient has gained weight in excess of 10 pounds probably in the form of fluid overload despite being on a combination of Lasix and Aldactone outpatient basis. At the same time is slightly bronchospastic and wheezy. Chest x-ray raises the concern for a questionable right lower lobe pneumonia although this can be atelectatic change and the pulmonary vasculature is within normal limits. There is a pacemaker overlying the left chest area. Heart size is also within normal limits. 2 congestion heart failure with an ejection fraction of less than 20% 3 coronary artery disease with previous bypass surgery 4 hypertension 5 hyperlipidemia 6 diabetes mellitus 7 chronic renal failure with stage III kidney disease 8 obesity with a BMI of 32.9 9 obstructive sleep apnea with an AHI of 24 currently on a APAP treatment 10 diabetic peripheral neuropathy 11 AICD placement for ischemic cardiomyopathy 12 osteoarthritis Plan DuoNeb nebulized treatments around the clock. IV Lasix to optimize his fluid balance and the patient will be placed on 60 minutes of Lasix every 8 hours. Monitor renal function. Monitor creatinine. Monitor electrolytes. Resume Aldactone. Antibiotic coverage with doxycycline. No concerns for pneumonia and the findings of the chest x-rays probably atelectatic change in the right lung base.
--- NOTE | 2018-03-01 14:43 | P.PN ---
Subjective Progress Note Date: 03/01/18 This is a 62-year-old gentleman with known history of severe ischemic cardio myopathy and prior AICD implant, COPD, retention, hyperlipidemia, nicotine dependence, who presented to the hospital with symptoms of productive cough as well as worsening bilateral peripheral edema. He was seen in consultation yesterday by Dr. Du, he has diuresed well overall on IV Lasix. His weight today is down 2 kg. Sodium 136, potassium 3.4, BUN 28, creatinine 1.0, magnesium 1.8 Objective - Vital Signs Vital signs: Vital Signs Temp 98.2 F 03/01/18 11:15 Pulse 77 03/01/18 14:10 Resp 18 03/01/18 14:10 BP 149/87 03/01/18 11:15 Pulse Ox 100 03/01/18 11:15 Intake & Output 02/28/18 03/01/18 03/01/18 18:59 06:59 18:59 Intake Total 180 490 500 Output Total 400 800 550 Balance -220 -310 -50 Weight 112.037 kg 110.1 kg 110.1 kg Intake: IV 10 20 Invasive Line 2 10 20 Oral 180 480 480 Output: Urine 400 800 550 Other: Voiding Method Urinal Urinal Urinal # Voids 2 - Exam PHYSICAL EXAMINATION: GENERAL: 62-year-old gentleman in no acute distress at the time of my examination HEENT: Head is atraumatic, normocephalic. Pupils equal, round. Sclera anicteric. Conjunctiva are clear. Mucous membranes of the mouth are moist. Neck is supple. There is elevated jugular venous pressure. No carotid bruit is heard. HEART EXAMINATION: Heart S1, S2 normal. No murmur or gallop heard. CHEST EXAMINATION: Lungs reveal scattered wheezing throughout. ABDOMEN: Soft, nontender. Bowel sounds are heard. No organomegaly noted. EXTREMITIES: 2+ peripheral pulses with !+ evidence of peripheral edema and no calf tenderness noted. NEUROLOGIC patient is awake, alert and oriented ?-3. . - Labs CBC & Chem 7: 02/28/18 08:54 03/01/18 05:58 Labs: Abnormal Lab Results - Last 24 Hours (Table) 02/28/18 02/28/18 02/28/18 Range/Units 15:04 16:10 20:22 Sodium (137-145) mmol/L Potassium (3.5-5.1) mmol/L Chloride (98-107) mmol/L Carbon Dioxide (22-30) mmol/L BUN (9-20) mg/dL Glucose (74-99) mg/dL POC Glucose (mg/dL) 213 H (75-99) mg/dL Troponin I 0.040 H* 0.041 H* (0.000-0.034) ng/mL 02/28/18 03/01/18 03/01/18 Range/Units 20:48 05:47 05:58 Sodium 136 L (137-145) mmol/L Potassium 3.4 L (3.5-5.1) mmol/L Chloride 94 L (98-107) mmol/L Carbon Dioxide 34 H (22-30) mmol/L BUN 28 H (9-20) mg/dL Glucose 44 L* (74-99) mg/dL POC Glucose (mg/dL) 118 H 61 L (75-99) mg/dL Troponin I (0.000-0.034) ng/mL 03/01/18 03/01/18 Range/Units 06:13 11:44 Sodium (137-145) mmol/L Potassium (3.5-5.1) mmol/L Chloride (98-107) mmol/L Carbon Dioxide (22-30) mmol/L BUN (9-20) mg/dL Glucose (74-99) mg/dL POC Glucose (mg/dL) 100 H 117 H (75-99) mg/dL Troponin I (0.000-0.034) ng/mL Assessment and Plan Plan: Assessment and plan #1 COPD exacerbation and systolic congestive heart failure acute on chronic #2 coronary artery disease with prior bypass surgery #3 ischemic cardio myopathy with prior AICD implantation #4 chronic nicotine dependence #5 hypertension #6 hyperlipidemia #7 diabetes Plan From cardiology's perspective, we'll recommend to continue the patient on his current dose of IV Lasix. Check lytes BUN and creatinine intake and output and daily weights tomorrow. DNP note has been reviewed, I agree with a documented findings and plan of care. Patient was seen and examined.
[2018-03-01 16:30] LABS: Glucose,Whole Blood 152 mg/dL (75-99)
[2018-03-01 20:48] LABS: Glucose,Whole Blood 198 mg/dL (75-99)
[2018-03-01] MEDS: INSULIN DETEMIR 100 UNIT/ML 10 ML VIAL SQ SCH (21:14)
[2018-03-02] MEDS: IPRATROPIUM-ALBUTEROL 3 ML NEB INHALATION PRN (00:28)
[2018-03-02] MEDS: HYDROcodone/APAP 5-325MG 1 EACH TAB PO PRN ×4 (03:11→21:51)
[2018-03-02] MEDS: IPRATROPIUM-ALBUTEROL 3 ML NEB INHALATION SCH ×6 (04:06→19:36)
[2018-03-02 05:35] LABS: Glucose,Whole Blood 72 mg/dL (75-99)
[2018-03-02] MEDS: INSULIN ASPART 100 UNIT/ML 1 ML 10 ML VIAL SQ SCH ×4 (05:54→21:50)
[2018-03-02 06:09] LABS: Anion Gap 8 mmol/L; Blood Urea Nitrogen 24 mg/dL (9-20); Calcium 8.5 mg/dL (8.4-10.2); Carbon Dioxide 33 mmol/L (22-30); Chloride 95 mmol/L (98-107); Glucose 56 mg/dL (74-99); Magnesium 1.7 mg/dL (1.6-2.3); Potassium 3.7 mmol/L (3.5-5.1); Sodium 136 mmol/L (137-145)
[2018-03-02] MEDS: PANTOPRAZOLE 40 MG TABLET PO SCH (06:20)
[2018-03-02] MEDS: SYMBICORT 160-4.5 MCG INHALER INHALATION SCH (07:46)
[2018-03-02] MEDS: SPIRONOLACTONE 25 MG TAB PO SCH (07:53)
[2018-03-02] MEDS: METOPROLOL SUCCINATE (ER) 50 MG TAB.ER.24H PO SCH (07:54)
[2018-03-02] MEDS: ASPIRIN 81 MG PO SCH (07:54)
[2018-03-02] MEDS: LISINOPRIL 2.5 MG TAB PO SCH (07:54)
[2018-03-02] MEDS: DOXYCYCLINE MONOHYDRATE 100 MG CAPSULE PO SCH ×2 (07:54→20:48)
[2018-03-02] MEDS: ATORVASTATIN 20 MG TAB PO SCH (07:54)
[2018-03-02] MEDS: FUROSEMIDE 10 MG/ML 10 ML VIAL IV SCH ×3 (07:54→23:50)
[2018-03-02] MEDS: HEPARIN SODIUM,PORCINE 5,000 UNIT/ML 1 ML VIAL SQ SCH ×3 (07:54→23:50)
[2018-03-02 11:30] LABS: Glucose,Whole Blood 108 mg/dL (75-99)
--- NOTE | 2018-03-02 11:36 | P.PN ---
Subjective Progress Note Date: 03/02/18 Principal diagnosis: Acute CHF/COPD exacerbation with secondary shortness of breath A pleasant 60-year-old male patient with known history of obesity with a BMI of 32.9 in addition to history of COPD and congestion heart failure with an ejection fraction of 20% and the patient has an AICD in place. In addition, the patient has history of coronary artery disease with previous bypass surgery and history of diabetes mellitus, hypertension and hyperlipidemia. The patient has had multiple hospitalization for exacerbation of COPD and CHF. He was in the hospital approximately 3 weeks ago and he was discharged home on a combination of Lasix 60 mg by mouth twice a day and Aldactone 25 mg by mouth daily. He came into the hospital because of worsening shortness of breath and increased pedal edema in addition to 10 pound weight gain over the past 2 weeks. He was having symptoms of orthopnea and PND. The patient has also some limited cough and bronchospasm wheezing which is typical of his underlying COPD. He claims that he is not smoking for the time being. Since he came in, the patient was diuresed with IV Lasix and the fluid balance is improving and there is improvement in the lower extremity edema and the patient has lost approximately 2 pounds. No angina. No pleurisy. No hemoptysis. No altered mentation at this point in time. On 03/02/2018 patient seen in follow-up on selective care unit. He had an episode of severe shortness of breath this morning trying to use his urinal, couldn't get air in or out. Eventually shortness of breath subsided, and at the moment patient is calm and comfortable. Lung sounds reveal expiratory wheezes over right lower lobe, some scattered rhonchi. She remains on IV diuretics, 60 mg every 8 hours, and oral Aldactone. Bilateral lower extremity edema is improving, patient is in negative fluid balance. Afebrile, hemodynamically stable, and on his baseline FiO2 of 4 L per nasal cannula. Objective - Vital Signs Vital signs: Vital Signs Temp 97.3 F L 03/02/18 07:52 Pulse 76 03/02/18 07:59 Resp 22 03/02/18 07:52 BP 106/52 03/02/18 07:52 Pulse Ox 98 03/02/18 07:52 Intake & Output 03/01/18 03/02/18 03/02/18 18:59 06:59 18:59 Intake Total 750 10 190 Output Total 1650 975 Balance -900 -965 190 Weight 110.1 kg 111.1 kg Intake: IV 30 10 10 Invasive Line 2 30 10 Invasive Line 3 10 Oral 720 180 Output: Urine 1650 975 Other: Voiding Method Urinal Urinal Urinal # Voids 1 - Exam Gen. appearance the patient is calm comfortable likely distress. Head exam was generally normal. There was no scleral icterus or corneal arcus. Mucous membranes were moist. Neck is short and supple and the patient has significant crowding of the posterior oropharynx. There is no goiter or neck masses. Lungs sounds are diminished and there is prolongation of expiratory phase of breathing and scattered expiratory wheezes without the lung his bilaterally. Few rhonchi and crackles also can be appreciated the lung bases. Cardiac exam revealed the PMI to be normally situated and sized. The rhythm was regular and no extrasystoles were noted during several minutes of auscultation. The first and second heart sounds were normal and physiologic splitting of the second heart sound was noted. There were no murmurs, rubs, clicks, or gallops. Abdominal exam revealed normal bowel sounds. The abdomen was soft, non-tender, and without masses, organomegaly, or appreciable enlargement of the abdominal aorta. Examination of the extremities revealed easily palpable radial, femoral and pedal pulses. There was no cyanosis, clubbing and there is +1 pitting edema Examination of the skin revealed no evidence of significant rashes, suspicious appearing nevi or other concerning lesions. Neurologically the patient is awake and alert and there is no focal neurological deficit. - Labs CBC & Chem 7: 02/28/18 08:54 03/02/18 05:21 Labs: Abnormal Lab Results - Last 24 Hours (Table) 03/01/18 03/01/18 03/01/18 Range/Units 11:44 16:28 20:46 Sodium (137-145) mmol/L Chloride (98-107) mmol/L Carbon Dioxide (22-30) mmol/L BUN (9-20) mg/dL Glucose (74-99) mg/dL POC Glucose (mg/dL) 117 H 152 H 198 H (75-99) mg/dL 03/02/18 03/02/18 Range/Units 05:21 05:33 Sodium 136 L (137-145) mmol/L Chloride 95 L (98-107) mmol/L Carbon Dioxide 33 H (22-30) mmol/L BUN 24 H (9-20) mg/dL Glucose 56 L (74-99) mg/dL POC Glucose (mg/dL) 72 L (75-99) mg/dL Assessment and Plan Plan: Assessment: 1 acute CHF/COPD exacerbation with secondary shortness of breath and hypoxic respiratory failure. The patient has gained weight in excess of 10 pounds probably in the form of fluid overload despite being on a combination of Lasix and Aldactone outpatient basis. At the same time is slightly bronchospastic and wheezy. Chest x-ray raises the concern for a questionable right lower lobe pneumonia although this can be atelectatic change and the pulmonary vasculature is within normal limits. There is a pacemaker overlying the left chest area. Heart size is also within normal limits. 2 congestion heart failure with an ejection fraction of less than 20% 3 coronary artery disease with previous bypass surgery 4 hypertension 5 hyperlipidemia 6 diabetes mellitus 7 chronic renal failure with stage III kidney disease 8 obesity with a BMI of 32.9 9 obstructive sleep apnea with an AHI of 24 currently on a APAP treatment 10 diabetic peripheral neuropathy 11 AICD placement for ischemic cardiomyopathy 12 osteoarthritis Plan: Continue IV diuretics, antibiotics, nebulized bronchodilators. We'll switch his Symbicort to Pulmicort and Perforomist, continue monitoring electrolytes, renal profile, net fluid balance. Daily weights. We'll repeat chest x-ray in the morning I performed a history & physical examination of the patient and discussed their management with my nurse practitioner, Agnes Mckeon. I reviewed the nurse practitioner's note and agree with the documented findings and plan of care. Lung sounds are positive for a few scattered rhonchi, and some wheezes. The findings and the impression was discussed with the patient. I attest to the documentation by the nurse practitioner. Time with Patient: Less than 30
[2018-03-02] MEDS: ALPRAZolam 0.25 MG TAB PO PRN ×2 (12:05→23:55)
--- NOTE | 2018-03-02 12:24 | P.PN ---
Subjective Progress Note Date: 03/02/18 This is a 62-year-old gentleman with known history of severe ischemic cardio myopathy and prior AICD implant, COPD, retention, hyperlipidemia, nicotine dependence, who presented to the hospital with symptoms of productive cough as well as worsening bilateral peripheral edema. He was seen in consultation yesterday by Dr. Du, he has diuresed well overall on IV Lasix. His weight today is down 2 kg. Sodium 136, potassium 3.4, BUN 28, creatinine 1.0, magnesium 1.8. 03/02/2018 Patient seen and examined this morning, had an episode of difficulty in breathing through the night and one episode this morning, seemed to be relieved with breathing treatment. At the time of my examination patient sitting up in bed, breathing overall stable. Diuresed well through the night on IV Lasix although his weight is reflective of this. Sodium 136, potassium 3.7, BUN 24, creatinine 0.9, magnesium 1.7. Objective - Vital Signs Vital signs: Vital Signs Temp 97.7 F 03/02/18 11:53 Pulse 70 03/02/18 11:53 Resp 22 03/02/18 11:53 BP 120/58 03/02/18 11:53 Pulse Ox 98 03/02/18 11:53 Intake & Output 03/01/18 03/02/18 03/02/18 18:59 06:59 18:59 Intake Total 750 10 430 Output Total 6259 319 2593 Balance -900 -965 -720 Weight 110.1 kg 111.1 kg Intake: IV 30 10 10 Invasive Line 2 30 10 Invasive Line 3 10 Oral 720 420 Output: Urine 4428 209 8500 Other: Voiding Method Urinal Urinal Urinal # Voids 1 1 - Exam PHYSICAL EXAMINATION: GENERAL: 62-year-old gentleman in no acute distress at the time of my examination HEENT: Head is atraumatic, normocephalic. Pupils equal, round. Sclera anicteric. Conjunctiva are clear. Mucous membranes of the mouth are moist. Neck is supple. There is elevated jugular venous pressure. No carotid bruit is heard. HEART EXAMINATION: Heart S1, S2 normal. No murmur or gallop heard. CHEST EXAMINATION: Lungs reveal scattered wheezing throughout. ABDOMEN: Soft, nontender. Bowel sounds are heard. No organomegaly noted. EXTREMITIES: 2+ peripheral pulses with trace to 1+ evidence of peripheral edema and no calf tenderness noted. NEUROLOGIC patient is awake, alert and oriented ?-3. . - Labs CBC & Chem 7: 02/28/18 08:54 03/02/18 05:21 Labs: Abnormal Lab Results - Last 24 Hours (Table) 03/01/18 03/01/18 03/02/18 Range/Units 16:28 20:46 05:21 Sodium 136 L (137-145) mmol/L Chloride 95 L (98-107) mmol/L Carbon Dioxide 33 H (22-30) mmol/L BUN 24 H (9-20) mg/dL Glucose 56 L (74-99) mg/dL POC Glucose (mg/dL) 152 H 198 H (75-99) mg/dL 03/02/18 03/02/18 Range/Units 05:33 11:28 Sodium (137-145) mmol/L Chloride (98-107) mmol/L Carbon Dioxide (22-30) mmol/L BUN (9-20) mg/dL Glucose (74-99) mg/dL POC Glucose (mg/dL) 72 L 108 H (75-99) mg/dL Assessment and Plan Plan: Assessment and plan #1 COPD exacerbation and systolic congestive heart failure acute on chronic #2 coronary artery disease with prior bypass surgery #3 ischemic cardio myopathy with prior AICD implantation #4 chronic nicotine dependence #5 hypertension #6 hyperlipidemia #7 diabetes Plan From cardiology's perspective, we'll recommend to continue the patient on his current dose of IV Lasix. Check lytes BUN and creatinine intake and output and daily weights tomorrow. Replace magnesium and potassium. DNP note has been reviewed, I agree with a documented findings and plan of care. Patient was seen and examined.
[2018-03-02] MEDS ORDERED: traMADol 50 MG TAB PO PRN (14:20)
--- NOTE | 2018-03-02 14:44 | XR ---
EXAMINATION TYPE: XR chest 2V DATE OF EXAM: 03/02/2018 COMPARISON: 02/28/2018 HISTORY: 62-year-old male follow-up CHF, possible right lower lobe pneumonia TECHNIQUE: Frontal and lateral views FINDINGS: Heart mildly enlarged. Median sternotomy wires are present. Atherosclerotic arch calcifications. Left anterior chest wall AICD generator with right atrial and right ventricular leads. Improving aeration throughout the lungs especially the right base. Stable prominent first right rib end. No consolidati on or pleural effusion. Hyperinflation with relative upper lung lucencies. IMPRESSION: Mild cardiomegaly with interval improved aeration. There is COPD without acute process seen.
[2018-03-02] MEDS: MAGNESIUM SULFATE-D5W PMX 1 GM in DEXTROSE/WATER 1 100ML.BAG IVPB SCH ×2 (15:36→17:15)
[2018-03-02 16:41] LABS: Glucose,Whole Blood 202 mg/dL (75-99)
--- NOTE | 2018-03-02 19:04 | P.PN ---
Subjective Progress Note Date: 03/02/18 Progress note being dictated for Dr. Song Interval history:68-year-old gentleman was admitted secondary to CHF exacerbation patient had ejection fraction of 20% does have a CD does have history of COPD. Patient is clinically feeling better today but still quite a bit short of breath will require IV Lasix which will be continued monitor kidney function is and os pedal edema improved patient still has minimal expiratory wheeze on exam Constitutional: Denied any fatigue denied any fever. Cardio vascular: denied any chest pain, palpitations Gastrointestinal denied any nausea vomiting Pulmonary: As mentioned in HPI Neurologic denied any new focal deficits 03/02/2018 maintained on Lasix IV push, diuresing well with 24-hour I&O reflecting a negative fluid balance. Continues to have significant wheezing, positive JVD. Complains of significant bilateral knee pain, more at rest. Blood sugars running on the lower side today. Denies chest pain but patient's or increased shortness of breath. Potassium 3.7, magnesium 1.7. Objective - Vital Signs Vital signs: Vital Signs Temp 97.5 F L 03/02/18 15:35 Pulse 70 03/02/18 16:30 Resp 22 03/02/18 16:00 BP 101/43 03/02/18 15:35 Pulse Ox 94 L 03/02/18 16:09 Intake & Output 03/01/18 03/02/18 03/02/18 18:59 06:59 18:59 Intake Total 750 10 666 Output Total 2529 552 1522 Balance -900 -965 -684 Weight 110.1 kg 111.1 kg Intake: IV 30 10 10 Invasive Line 2 30 10 Invasive Line 3 10 Oral 720 656 Output: Urine 8123 378 5756 Other: Voiding Method Urinal Urinal Urinal # Voids 1 1 - Exam GENERAL: The patient is alert and oriented x3, not in any acute distress. Well developed, well nourished. HEENT: Pupils are round and equally reacting to light. EOMI. No scleral icterus. No conjunctival pallor. Normocephalic, atraumatic. No pharyngeal erythema. No thyromegaly. Positive JVD CARDIOVASCULAR: S1 and S2 present. No murmurs, rubs, or gallops. PULMONARY: Chest is clear to auscultation, expiratory wheezing scattered, no crackles. ABDOMEN: Soft, nontender, nondistended, normoactive bowel sounds. No palpable organomegaly. MUSCULOSKELETAL: No joint swelling or deformity. EXTREMITIES: No cyanosis, clubbing, pedal edema improving NEUROLOGICAL: Gross neurological examination did not reveal any focal deficits. SKIN: No rashes. - Labs CBC & Chem 7: 02/28/18 08:54 03/02/18 05:21 Labs: Abnormal Lab Results - Last 24 Hours (Table) 03/01/18 03/02/18 03/02/18 Range/Units 20:46 05:21 05:33 Sodium 136 L (137-145) mmol/L Chloride 95 L (98-107) mmol/L Carbon Dioxide 33 H (22-30) mmol/L BUN 24 H (9-20) mg/dL Glucose 56 L (74-99) mg/dL POC Glucose (mg/dL) 198 H 72 L (75-99) mg/dL 03/02/18 03/02/18 Range/Units 11:28 16:39 Sodium (137-145) mmol/L Chloride (98-107) mmol/L Carbon Dioxide (22-30) mmol/L BUN (9-20) mg/dL Glucose (74-99) mg/dL POC Glucose (mg/dL) 108 H 202 H (75-99) mg/dL Assessment and Plan Assessment: -Acute hypoxic respiratory failure: Secondary to congestive heart failure exacerbation patient has chronic systolic dysfunction with acute exacerbation. Patient was started on IV Lasix continue with lisinopril cardiology elevated the patient -COPD with very minimal exacerbation will not require any systemic steroids doxycycline although will be continued will be started on inhaled steroids. -Hypomagnesemia magnesium will be supplemented -Minimally elevated troponin secondary to heart failure. -Type 2 diabetes mellitus patient will be resumed on his home regimen along with sliding scale insulin. -Coronary artery disease, his ischemic cardiomyopathy patient had a CABG in the past stents in the past and has a an AICD in the past - Plan: Continue current medication regime ,monitoring and symptomatic treatment. Continue diuresing with Lasix IV push. Ultram added for complaints of knee pain. Receiving magnesium and potassium supplements. Close monitoring of renal function and electrolytes with repeat labs ordered for a.m. Levemir dose decreased, close monitoring of Accu-Cheks. The impression and plan of care has been dictated as directed. : I performed a history and examination of this patient, discussed the same with the dictator. I agree with the dictator's note ,documented as a scribe. Any additional findings or plans will be noted.
[2018-03-02] MEDS: BUDESONIDE 1 MG/2 ML NEBU INHALATION SCH (19:36)
[2018-03-02] MEDS: FORMOTEROL FUMARATE 20 MCG/2 ML NEBU INHALATION SCH (19:36)
[2018-03-02 20:59] LABS: Glucose,Whole Blood 142 mg/dL (75-99)
[2018-03-02] MEDS: INSULIN DETEMIR 100 UNIT/ML 10 ML VIAL SQ SCH (22:35)
[2018-03-03] MEDS: IPRATROPIUM-ALBUTEROL 3 ML NEB INHALATION SCH ×6 (00:26→20:40)
[2018-03-03] MEDS: HYDROcodone/APAP 5-325MG 1 EACH TAB PO PRN ×4 (05:16→22:31)
[2018-03-03 06:11] LABS: Anion Gap 7 mmol/L; Blood Urea Nitrogen 23 mg/dL (9-20); Calcium 8.7 mg/dL (8.4-10.2); Carbon Dioxide 34 mmol/L (22-30); Chloride 93 mmol/L (98-107); Glucose 61 mg/dL (74-99); Magnesium 1.9 mg/dL (1.6-2.3); Potassium 3.6 mmol/L (3.5-5.1); Sodium 134 mmol/L (137-145)
[2018-03-03] MEDS: INSULIN ASPART 100 UNIT/ML 1 ML 10 ML VIAL SQ SCH ×4 (06:24→21:34)
[2018-03-03 06:25] LABS: Glucose,Whole Blood 82 mg/dL (75-99)
[2018-03-03] MEDS: PANTOPRAZOLE 40 MG TABLET PO SCH (06:26)
[2018-03-03] MEDS: FORMOTEROL FUMARATE 20 MCG/2 ML NEBU INHALATION SCH (07:55)
[2018-03-03] MEDS: BUDESONIDE 1 MG/2 ML NEBU INHALATION SCH (07:55)
[2018-03-03] MEDS: ATORVASTATIN 20 MG TAB PO SCH (08:34)
[2018-03-03] MEDS: FUROSEMIDE 10 MG/ML 10 ML VIAL IV SCH (08:34)
[2018-03-03] MEDS: DOXYCYCLINE MONOHYDRATE 100 MG CAPSULE PO SCH ×2 (08:34→19:46)
[2018-03-03] MEDS: METOPROLOL SUCCINATE (ER) 50 MG TAB.ER.24H PO SCH (08:34)
[2018-03-03] MEDS: SPIRONOLACTONE 25 MG TAB PO SCH (08:34)
[2018-03-03] MEDS: LISINOPRIL 2.5 MG TAB PO SCH (08:34)
[2018-03-03] MEDS: ASPIRIN 81 MG PO SCH (08:34)
[2018-03-03] MEDS: HEPARIN SODIUM,PORCINE 5,000 UNIT/ML 1 ML VIAL SQ SCH ×3 (08:34→23:15)
--- NOTE | 2018-03-03 11:01 | P.PN ---
Subjective Progress Note Date: 03/03/18 Principal diagnosis: Acute CHF/COPD exacerbation with secondary shortness of breath A pleasant 60-year-old male patient with known history of obesity with a BMI of 32.9 in addition to history of COPD and congestion heart failure with an ejection fraction of 20% and the patient has an AICD in place. In addition, the patient has history of coronary artery disease with previous bypass surgery and history of diabetes mellitus, hypertension and hyperlipidemia. The patient has had multiple hospitalization for exacerbation of COPD and CHF. He was in the hospital approximately 3 weeks ago and he was discharged home on a combination of Lasix 60 mg by mouth twice a day and Aldactone 25 mg by mouth daily. He came into the hospital because of worsening shortness of breath and increased pedal edema in addition to 10 pound weight gain over the past 2 weeks. He was having symptoms of orthopnea and PND. The patient has also some limited cough and bronchospasm wheezing which is typical of his underlying COPD. He claims that he is not smoking for the time being. Since he came in, the patient was diuresed with IV Lasix and the fluid balance is improving and there is improvement in the lower extremity edema and the patient has lost approximately 2 pounds. No angina. No pleurisy. No hemoptysis. No altered mentation at this point in time. On 03/02/2018 patient seen in follow-up on selective care unit. He had an episode of severe shortness of breath this morning trying to use his urinal, couldn't get air in or out. Eventually shortness of breath subsided, and at the moment patient is calm and comfortable. Lung sounds reveal expiratory wheezes over right lower lobe, some scattered rhonchi. She remains on IV diuretics, 60 mg every 8 hours, and oral Aldactone. Bilateral lower extremity edema is improving, patient is in negative fluid balance. Afebrile, hemodynamically stable, and on his baseline FiO2 of 4 L per nasal cannula. On 03/03/2018 patient seen in follow-up on selective care unit. Breathing much easier, lung sounds are positive for just a few faint wheezes, no significant chest congestion, and teens to diurese, he is in -1534 mL fluid balance over the last 24 hours, yesterday's chest x-ray has been reviewed and shows interval improved aeration. Today his labs were noted, no CBC, BMP shows sodium of 134, potassium 3.6, chloride is 93, CO2 of 34, BUN is 23, creatinine is 1.0. Bilateral lower extremity edema has improved, he has chronic swelling in his left lower extremity, more so than on the right. Currently on room air, is wearing his oxygen intermittently, afebrile, no acute events overnight, patient is stable for discharge home today. Objective - Vital Signs Vital signs: Vital Signs Temp 97.1 F L 03/03/18 08:00 Pulse 88 03/03/18 08:19 Resp 16 03/03/18 08:00 BP 122/70 03/03/18 08:00 Pulse Ox 99 03/03/18 08:00 Intake & Output 03/02/18 03/03/18 03/03/18 18:59 06:59 18:59 Intake Total 666 Output Total 1350 850 Balance -684 -850 Weight 111.2 kg Intake: IV 10 Invasive Line 3 10 Oral 656 Output: Urine 1350 850 Other: Voiding Method Urinal Urinal Urinal # Voids 1 2 - Exam Gen. appearance the patient is calm comfortable likely distress. Head exam was generally normal. There was no scleral icterus or corneal arcus. Mucous membranes were moist. Neck is short and supple and the patient has significant crowding of the posterior oropharynx. There is no goiter or neck masses. Lungs sounds are diminished and there is minimal expiratory wheezes without the lung his bilaterally. No rhonchi or crackles Cardiac exam revealed the PMI to be normally situated and sized. The rhythm was regular and no extrasystoles were noted during several minutes of auscultation. The first and second heart sounds were normal and physiologic splitting of the second heart sound was noted. There were no murmurs, rubs, clicks, or gallops. Abdominal exam revealed normal bowel sounds. The abdomen was soft, non-tender, and without masses, organomegaly, or appreciable enlargement of the abdominal aorta. Examination of the extremities revealed easily palpable radial, femoral and pedal pulses. There was no cyanosis, clubbing and there is +1 pitting edema in the left lower extremity, no edema in the right extremity Examination of the skin revealed no evidence of significant rashes, suspicious appearing nevi or other concerning lesions. Neurologically the patient is awake and alert and there is no focal neurological deficit. - Labs CBC & Chem 7: 02/28/18 08:54 03/03/18 05:27 Labs: Abnormal Lab Results - Last 24 Hours (Table) 03/02/18 03/02/18 03/02/18 Range/Units 11:28 16:39 20:56 Sodium (137-145) mmol/L Chloride (98-107) mmol/L Carbon Dioxide (22-30) mmol/L BUN (9-20) mg/dL Glucose (74-99) mg/dL POC Glucose (mg/dL) 108 H 202 H 142 H (75-99) mg/dL 03/03/18 Range/Units 05:27 Sodium 134 L (137-145) mmol/L Chloride 93 L (98-107) mmol/L Carbon Dioxide 34 H (22-30) mmol/L BUN 23 H (9-20) mg/dL Glucose 61 L (74-99) mg/dL POC Glucose (mg/dL) (75-99) mg/dL Assessment and Plan Plan: Assessment: 1 acute CHF/COPD exacerbation with secondary shortness of breath and hypoxic respiratory failure. The patient has gained weight in excess of 10 pounds probably in the form of fluid overload despite being on a combination of Lasix and Aldactone outpatient basis. At the same time is slightly bronchospastic and wheezy. Chest x-ray raises the concern for a questionable right lower lobe pneumonia although this can be atelectatic change and the pulmonary vasculature is within normal limits. There is a pacemaker overlying the left chest area. Heart size is also within normal limits. 2 congestion heart failure with an ejection fraction of less than 20% 3 coronary artery disease with previous bypass surgery 4 hypertension 5 hyperlipidemia 6 diabetes mellitus 7 chronic renal failure with stage III kidney disease 8 obesity with a BMI of 32.9 9 obstructive sleep apnea with an AHI of 24 currently on a APAP treatment 10 diabetic peripheral neuropathy 11 AICD placement for ischemic cardiomyopathy 12 osteoarthritis Plan: We'll switch Pulmicort and Perforomist to Symbicort, continue nebulized bronchodilators, increase activity as tolerated, patient is stable, and continues to improve, breathing easier, hardly any wheezes on today's exam, no significant chest congestion, he has been diuresed, today's chest x-ray shows improvement in the aeration. From pulmonary standpoint patient is stable for discharge home today on his maintenance inhalers and nebulized treatments. I performed a history & physical examination of the patient and discussed their management with my nurse practitioner, Agnes Mckeon. I reviewed the nurse practitioner's note and agree with the documented findings and plan of care. Lung sounds are positive for faint few wheezes. The findings and the impression was discussed with the patient. I attest to the documentation by the nurse practitioner. Time with Patient: Less than 30
[2018-03-03] MEDS ORDERED: predniSONE 20 MG TAB PO SCH (11:30)
[2018-03-03 11:53] LABS: Glucose,Whole Blood 146 mg/dL (75-99)
--- NOTE | 2018-03-03 14:39 | P.PN ---
Subjective Progress Note Date: 03/03/18 This is a 62-year-old gentleman with known history of severe ischemic cardio myopathy and prior AICD implant, COPD, retention, hyperlipidemia, nicotine dependence, who presented to the hospital with symptoms of productive cough as well as worsening bilateral peripheral edema. He was seen in consultation yesterday by Dr. Du, he has diuresed well overall on IV Lasix. His weight today is down 2 kg. Sodium 136, potassium 3.4, BUN 28, creatinine 1.0, magnesium 1.8. 03/02/2018 Patient seen and examined this morning, had an episode of difficulty in breathing through the night and one episode this morning, seemed to be relieved with breathing treatment. At the time of my examination patient sitting up in bed, breathing overall stable. Diuresed well through the night on IV Lasix although his weight is reflective of this. Sodium 136, potassium 3.7, BUN 24, creatinine 0.9, magnesium 1.7. 03/03/2018 Patient seen and examined this morning, feeling better overall, continues to have significant wheezing. The pressure 120/70 with a heart rate in the 70s, 99 % on 3 L of oxygen. Diuresed well, weight unchanged. Objective - Vital Signs Vital signs: Vital Signs Temp 97.0 F L 03/03/18 12:00 Pulse 72 03/03/18 12:00 Resp 16 03/03/18 12:00 BP 120/72 03/03/18 12:00 Pulse Ox 99 03/03/18 12:00 Intake & Output 03/02/18 03/03/18 03/03/18 18:59 06:59 18:59 Intake Total 666 360 Output Total 1350 850 200 Balance -684 -850 160 Weight 111.2 kg Intake: IV 10 Invasive Line 3 10 Oral 656 360 Output: Urine 1350 850 200 Other: Voiding Method Urinal Urinal Urinal # Voids 1 2 - Exam PHYSICAL EXAMINATION: GENERAL: 62-year-old gentleman in no acute distress at the time of my examination HEENT: Head is atraumatic, normocephalic. Pupils equal, round. Sclera anicteric. Conjunctiva are clear. Mucous membranes of the mouth are moist. Neck is supple. There is elevated jugular venous pressure. No carotid bruit is heard. HEART EXAMINATION: Heart S1, S2 normal. No murmur or gallop heard. CHEST EXAMINATION: Lungs reveal scattered wheezing throughout. ABDOMEN: Soft, nontender. Bowel sounds are heard. No organomegaly noted. EXTREMITIES: 2+ peripheral pulses with trace to 1+ evidence of peripheral edema and no calf tenderness noted. NEUROLOGIC patient is awake, alert and oriented ?-3. . - Labs CBC & Chem 7: 02/28/18 08:54 03/03/18 05:27 Labs: Abnormal Lab Results - Last 24 Hours (Table) 03/02/18 03/02/18 03/03/18 Range/Units 16:39 20:56 05:27 Sodium 134 L (137-145) mmol/L Chloride 93 L (98-107) mmol/L Carbon Dioxide 34 H (22-30) mmol/L BUN 23 H (9-20) mg/dL Glucose 61 L (74-99) mg/dL POC Glucose (mg/dL) 202 H 142 H (75-99) mg/dL 03/03/18 Range/Units 11:49 Sodium (137-145) mmol/L Chloride (98-107) mmol/L Carbon Dioxide (22-30) mmol/L BUN (9-20) mg/dL Glucose (74-99) mg/dL POC Glucose (mg/dL) 146 H (75-99) mg/dL Assessment and Plan Plan: Assessment and plan #1 COPD exacerbation and systolic congestive heart failure acute on chronic #2 coronary artery disease with prior bypass surgery #3 ischemic cardio myopathy with prior AICD implantation #4 chronic nicotine dependence #5 hypertension #6 hyperlipidemia #7 diabetes Plan From cardiology's perspective, we'll discontinue the IV Lasix and change patient over to oral diuretics today. We will follow this patient along with you now on an as-needed basis only, please don't hesitate to call with any questions. DNP note has been reviewed, I agree with a documented findings and plan of care. Patient was seen and examined.
[2018-03-03] MEDS: FUROSEMIDE 20 MG TAB PO SCH (16:53)
[2018-03-03] MEDS: ALPRAZolam 0.25 MG TAB PO PRN (17:00)
[2018-03-03 17:05] LABS: Glucose,Whole Blood 162 mg/dL (75-99)
[2018-03-03 19:49] VITALS: RESP 17
[2018-03-03] MEDS: SYMBICORT 160-4.5 MCG INHALER INHALATION SCH ×2 (20:40→20:42)
[2018-03-03 20:44] LABS: Glucose,Whole Blood 179 mg/dL (75-99)
[2018-03-03] MEDS: INSULIN DETEMIR 100 UNIT/ML 10 ML VIAL SQ SCH (21:34)
[2018-03-04] MEDS: IPRATROPIUM-ALBUTEROL 3 ML NEB INHALATION SCH ×4 (00:07→11:03)
[2018-03-04 05:15] VITALS: TEMP 97
[2018-03-04] MEDS: HYDROcodone/APAP 5-325MG 1 EACH TAB PO PRN (05:17)
[2018-03-04 06:04] LABS: Glucose,Whole Blood 123 mg/dL (75-99)
[2018-03-04] MEDS: INSULIN ASPART 100 UNIT/ML 1 ML 10 ML VIAL SQ SCH (06:28)
[2018-03-04] MEDS: PANTOPRAZOLE 40 MG TABLET PO SCH (06:30)
[2018-03-04 06:56] LABS: Anion Gap 9 mmol/L; Blood Urea Nitrogen 23 mg/dL (9-20); Calcium 8.8 mg/dL (8.4-10.2); Carbon Dioxide 33 mmol/L (22-30); Chloride 94 mmol/L (98-107); Glucose 105 mg/dL (74-99); Sodium 136 mmol/L (137-145)
[2018-03-04] MEDS: SYMBICORT 160-4.5 MCG INHALER INHALATION SCH (07:53)
[2018-03-04 09:01] VITALS: BP 130/72
[2018-03-04] MEDS: DOXYCYCLINE MONOHYDRATE 100 MG CAPSULE PO SCH (09:01)
[2018-03-04] MEDS: ASPIRIN 81 MG PO SCH (09:01)
[2018-03-04] MEDS: HEPARIN SODIUM,PORCINE 5,000 UNIT/ML 1 ML VIAL SQ SCH (09:01)
[2018-03-04] MEDS: ATORVASTATIN 20 MG TAB PO SCH (09:01)
[2018-03-04] MEDS: LISINOPRIL 2.5 MG TAB PO SCH (09:02)
[2018-03-04] MEDS: FUROSEMIDE 20 MG TAB PO SCH (09:02)
[2018-03-04] MEDS: METOPROLOL SUCCINATE (ER) 50 MG TAB.ER.24H PO SCH (09:02)
[2018-03-04] MEDS: SPIRONOLACTONE 25 MG TAB PO SCH (09:02)
--- NOTE | 2018-03-04 09:35 | P.PN ---
Subjective Progress Note Date: 03/04/18 Principal diagnosis: Acute on chronic hypoxic respiratory failure secondary to combination of acute exacerbation of systolic congestive heart failure and acute exacerbation of chronic obstructive pulmonary disease. A pleasant 60-year-old male patient with known history of obesity with a BMI of 32.9 in addition to history of COPD and congestion heart failure with an ejection fraction of 20% and the patient has an AICD in place. In addition, the patient has history of coronary artery disease with previous bypass surgery and history of diabetes mellitus, hypertension and hyperlipidemia. The patient has had multiple hospitalization for exacerbation of COPD and CHF. He was in the hospital approximately 3 weeks ago and he was discharged home on a combination of Lasix 60 mg by mouth twice a day and Aldactone 25 mg by mouth daily. He came into the hospital because of worsening shortness of breath and increased pedal edema in addition to 10 pound weight gain over the past 2 weeks. He was having symptoms of orthopnea and PND. The patient has also some limited cough and bronchospasm wheezing which is typical of his underlying COPD. He claims that he is not smoking for the time being. Since he came in, the patient was diuresed with IV Lasix and the fluid balance is improving and there is improvement in the lower extremity edema and the patient has lost approximately 2 pounds. No angina. No pleurisy. No hemoptysis. No altered mentation at this point in time. On 03/02/2018 patient seen in follow-up on selective care unit. He had an episode of severe shortness of breath this morning trying to use his urinal, couldn't get air in or out. Eventually shortness of breath subsided, and at the moment patient is calm and comfortable. Lung sounds reveal expiratory wheezes over right lower lobe, some scattered rhonchi. She remains on IV diuretics, 60 mg every 8 hours, and oral Aldactone. Bilateral lower extremity edema is improving, patient is in negative fluid balance. Afebrile, hemodynamically stable, and on his baseline FiO2 of 4 L per nasal cannula. On 03/03/2018 patient seen in follow-up on selective care unit. Breathing much easier, lung sounds are positive for just a few faint wheezes, no significant chest congestion, and teens to diurese, he is in -1534 mL fluid balance over the last 24 hours, yesterday's chest x-ray has been reviewed and shows interval improved aeration. Today his labs were noted, no CBC, BMP shows sodium of 134, potassium 3.6, chloride is 93, CO2 of 34, BUN is 23, creatinine is 1.0. Bilateral lower extremity edema has improved, he has chronic swelling in his left lower extremity, more so than on the right. Currently on room air, is wearing his oxygen intermittently, afebrile, no acute events overnight, patient is stable for discharge home today. Vision is seen today 03/04/2018 in follow-up on the selective care unit. He is currently sitting up in bed. He is awake and alert in no acute distress. He denies any worsening shortness of breath, cough or congestion. Has some faint end expiratory wheeze bilaterally. He is maintaining good O2 saturations in the mid 90s on 3 L/m per nasal cannula. He's been afebrile. Hemodynamically stable. He is currently in a negative balance. Down another kilogram today. Diminished lower extremity edema. Creatinine 0.88. He is continued on DuoNeb inhalations and Symbicort. He remains on diuretics. Objective - Vital Signs Vital signs: Vital Signs Temp 97 F L 03/04/18 08:00 Pulse 64 03/04/18 08:09 Resp 17 03/04/18 08:00 BP 130/72 03/04/18 08:00 Pulse Ox 96 03/04/18 08:00 Intake & Output 03/03/18 03/04/18 03/04/18 18:59 06:59 18:59 Intake Total 720 360 Output Total 200 1350 Balance 520 -1350 360 Weight 110.8 kg Intake: Oral 720 360 Output: Urine 200 1350 Other: Voiding Method Urinal Urinal Urinal - Exam - Exam Gen. appearance the patient is calm comfortable no acute distress. Head exam was generally normal. There was no scleral icterus or corneal arcus. Mucous membranes were moist. Neck is short and supple and the patient has significant crowding of the posterior oropharynx. There is no goiter or neck masses. Lungs sounds are diminished and there is minimal expiratory wheezes without the lung his bilaterally. No rhonchi or crackles Cardiac exam revealed the PMI to be normally situated and sized. The rhythm was regular and no extrasystoles were noted during several minutes of auscultation. The first and second heart sounds were normal and physiologic splitting of the second heart sound was noted. There were no murmurs, rubs, clicks, or gallops. Abdominal exam revealed normal bowel sounds. The abdomen was soft, non-tender, and without masses, organomegaly, or appreciable enlargement of the abdominal aorta. Examination of the extremities revealed easily palpable radial, femoral and pedal pulses. There was no cyanosis, clubbing and there is +1 pitting edema in the left lower extremity, no edema in the right extremity Examination of the skin revealed no evidence of significant rashes, suspicious appearing nevi or other concerning lesions. Neurologically the patient is awake and alert and there is no focal neurological deficit. - Labs CBC & Chem 7: 02/28/18 08:54 03/04/18 06:12 Labs: Abnormal Lab Results - Last 24 Hours (Table) 03/03/18 03/03/18 03/03/18 Range/Units 11:49 17:03 20:33 Sodium (137-145) mmol/L Chloride (98-107) mmol/L Carbon Dioxide (22-30) mmol/L BUN (9-20) mg/dL Glucose (74-99) mg/dL POC Glucose (mg/dL) 146 H 162 H 179 H (75-99) mg/dL 03/04/18 03/04/18 Range/Units 06:04 06:12 Sodium 136 L (137-145) mmol/L Chloride 94 L (98-107) mmol/L Carbon Dioxide 33 H (22-30) mmol/L BUN 23 H (9-20) mg/dL Glucose 105 H (74-99) mg/dL POC Glucose (mg/dL) 123 H (75-99) mg/dL Assessment and Plan Assessment: Assessment: 1 acute on chronic hypoxic respiratory failure secondary to acute CHF/COPD exacerbation. The patient has gained weight in excess of 10 pounds probably in the form of fluid overload despite being on a combination of Lasix and Aldactone outpatient basis. At the same time is slightly bronchospastic and wheezy. Chest x-ray raises the concern for a questionable right lower lobe pneumonia although this can be atelectatic change and the pulmonary vasculature is within normal limits. There is a pacemaker overlying the left chest area. Heart size is also within normal limits. Follow-up chest x-ray shows mild cardiomegaly with interval improved aeration. COPD but no acute process. 2 congestion heart failure with an ejection fraction of less than 20% 3 coronary artery disease with previous bypass surgery 4 hypertension 5 hyperlipidemia 6 diabetes mellitus 7 chronic renal failure with stage III kidney disease 8 obesity with a BMI of 32.9 9 obstructive sleep apnea with an AHI of 24 currently on CpAP treatment 10 diabetic peripheral neuropathy 11 AICD placement for ischemic cardiomyopathy 12 osteoarthritis Plan: The patient was seen and evaluated by Dr. Iraheta. He is currently stable from the pulmonary standpoint and could be discharged home on DuoNeb inhalations and Symbicort. He'll follow-up in our office in 1-2 weeks' time. He is however encouraged to call sooner with any recurrence of symptoms or other questions or concerns. I, the cosigning physician, performed a history & physical examination of the patient. Lungs sounds with faint end expiratory wheeze, diminished. Maintaining good O2 saturations in the 90s on 3 L/m per nasal cannula. I discussed the assessment and plan of care with my nurse practitioner, Narcisa Graham. I attest to the above note as dictated by her.
[2018-03-04 11:20] VITALS: PULSE 80
[2018-03-04] MEDS: ALPRAZolam 0.25 MG TAB PO PRN (11:27)
--- NOTE | 2018-03-04 12:12 | P.PN ---
Subjective Progress Note Date: 03/03/18 68-year-old gentleman was admitted secondary to CHF exacerbation patient had ejection fraction of 20% does have a CD does have history of COPD. Patient is clinically feeling better today but still quite a bit short of breath will require IV Lasix which will be continued monitor kidney function is and os pedal edema improved patient still has minimal expiratory wheeze on exam 03/03/2018 Patient is being switched to oral Lasix and oral steroids. Constitutional: Denied any fatigue denied any fever. Cardio vascular: denied any chest pain, palpitations Gastrointestinal denied any nausea vomiting Pulmonary: As mentioned in HPI Neurologic denied any new focal deficits Objective - Vital Signs Vital signs: Vital Signs Temp 97 F L 03/04/18 08:00 Pulse 80 03/04/18 11:19 Resp 17 03/04/18 08:00 BP 130/72 03/04/18 08:00 Pulse Ox 96 03/04/18 08:00 Intake & Output 03/03/18 03/04/18 03/04/18 18:59 06:59 18:59 Intake Total 720 360 Output Total 200 1350 Balance 520 -1350 360 Weight 110.8 kg Intake: Oral 720 360 Output: Urine 200 1350 Other: Voiding Method Urinal Urinal Urinal - Exam PHYSICAL EXAMINATION: GENERAL: The patient is alert and oriented x3, not in any acute distress. Well developed, well nourished. HEENT: Pupils are round and equally reacting to light. EOMI. No scleral icterus. No conjunctival pallor. Normocephalic, atraumatic. No pharyngeal erythema. No thyromegaly. CARDIOVASCULAR: S1 and S2 present. No murmurs, rubs, or gallops. PULMONARY: Patient does have a minimal expiratory wheezing on exam. ABDOMEN: Soft, nontender, nondistended, normoactive bowel sounds. No palpable organomegaly. MUSCULOSKELETAL: No joint swelling or deformity. EXTREMITIES: No cyanosis, clubbing, pedal edema improved significantly compared to yesterday NEUROLOGICAL: Gross neurological examination did not reveal any focal deficits. SKIN: No rashes. - Labs CBC & Chem 7: 02/28/18 08:54 03/04/18 06:12 Labs: Abnormal Lab Results - Last 24 Hours (Table) 03/03/18 03/03/18 03/04/18 Range/Units 17:03 20:33 06:04 Sodium (137-145) mmol/L Chloride (98-107) mmol/L Carbon Dioxide (22-30) mmol/L BUN (9-20) mg/dL Glucose (74-99) mg/dL POC Glucose (mg/dL) 162 H 179 H 123 H (75-99) mg/dL 03/04/18 Range/Units 06:12 Sodium 136 L (137-145) mmol/L Chloride 94 L (98-107) mmol/L Carbon Dioxide 33 H (22-30) mmol/L BUN 23 H (9-20) mg/dL Glucose 105 H (74-99) mg/dL POC Glucose (mg/dL) (75-99) mg/dL Assessment and Plan Plan: -Acute hypoxic respiratory failure: Secondary to congestive heart failure exacerbation patient has chronic systolic dysfunction with acute exacerbation. Patient was switched to oral Lasix today and the patient was started on low- dose of lisinopril -COPD with some exacerbation is presently on inhaled steroids -Hypomagnesemia magnesium was supplemented -Minimally elevated troponin secondary to heart failure. -Type 2 diabetes mellitus patient will be resumed on his home regimen along with sliding scale insulin. -Coronary artery disease, his ischemic cardiomyopathy patient had a CABG in the past stents in the past and has a an AICD in the past -
--- NOTE | 2018-03-04 12:16 | P.DS ---
Providers Date of admission: 02/28/18 10:32 Attending physician: Rishi An Consults: 02/28/18 10:33 Consult Physician Routine Consulting Provider: Saulo [place] Consult Reason/Comments: chf exacerbation failed outpatient treatmnet Do you want consulting provider notified?: Yes 02/28/18 16:36 Consult Physician Routine Consulting Provider: Gisella Iraheta Consult Reason/Comments: COPD Do you want consulting provider notified?: Yes Primary care physician: René Hernandez [facility] Course: 68-year-old gentleman was admitted secondary to CHF exacerbation patient had ejection fraction of 20% does have a CD does have history of COPD. Patient is clinically feeling better today but still quite a bit short of breath will require IV Lasix which will be continued monitor kidney function is and os pedal edema improved patient still has minimal expiratory wheeze on exam 03/03/2018 Patient is being switched to oral Lasix and oral steroids. 03/04/2018 Patient will be discharged on oral steroids he is still wheezing but this is his baseline patient is requiring 2 L of oxygen today. Patient is high risk for readmission because of extremely poor ejection fraction of less than 20% and advanced COPD. We'll set up home care and patient is agreeable for that. PHYSICAL EXAMINATION: GENERAL: The patient is alert and oriented x3, not in any acute distress. Well developed, well nourished. HEENT: Pupils are round and equally reacting to light. EOMI. No scleral icterus. No conjunctival pallor. Normocephalic, atraumatic. No pharyngeal erythema. No thyromegaly. CARDIOVASCULAR: S1 and S2 present. No murmurs, rubs, or gallops. PULMONARY: Patient does have a minimal expiratory wheezing on exam. ABDOMEN: Soft, nontender, nondistended, normoactive bowel sounds. No palpable organomegaly. MUSCULOSKELETAL: No joint swelling or deformity. EXTREMITIES: No cyanosis, clubbing, pedal edema improved significantly compared to yesterday NEUROLOGICAL: Gross neurological examination did not reveal any focal deficits. SKIN: No rashes. Assessment and Plan Plan: -Acute hypoxic respiratory failure: Secondary to congestive heart failure exacerbation patient has chronic systolic dysfunction with acute exacerbation. Patient was switched to oral Lasix today and the patient was started on low- dose of lisinopril -COPD with some exacerbation patient is being discharged on oral steroids -Hypomagnesemia magnesium was supplemented -Minimally elevated troponin secondary to heart failure. -Type 2 diabetes mellitus patient will be resumed on his home regimen along with sliding scale insulin. -Coronary artery disease, his ischemic cardiomyopathy patient had a CABG in the past stents in the past and has a an AICD in the past Patient Condition at Discharge: Fair Plan - Discharge Summary Discharge Rx Participant: No New Discharge Prescriptions: New Budesonide-Formot 160-4.5 Mcg [Symbicort 160-4.5 Mcg Inhaler] 2 puff INHALATION RT-BID #1 inhaler Doxycycline Monohydrate [Vibramycin] 100 mg PO BID #4 capsule predniSONE 10 mg PO DAILY #30 tab Insulin Detemir [Levemir] 10 unit SQ HS syr Continue Spironolactone [Aldactone] 25 mg PO DAILY Aspirin [Adult Low Dose Aspirin EC] 81 mg PO DAILY Lisinopril [Zestril] 2.5 mg PO DAILY #30 tab Furosemide [Lasix] 60 mg PO BID Ipratropium-Albuterol Nebulize [Duoneb 0.5 mg-3 mg/3 ml Soln] 3 ml INHALATION RT-QID #120 ampul.neb metFORMIN HCL [Glucophage] 500 mg PO BID #60 tab Albuterol Inhaler [Ventolin Hfa Inhaler] 1 - 2 puff INHALATION Q4HR PRN 30 Days #1 inhaler PRN Reason: shortness of breath Pantoprazole [Protonix] 40 mg PO QAM #30 tablet.dr Changed Metoprolol Succinate [Toprol XL] 50 mg PO DAILY #0 Discontinued Atorvastatin [Lipitor] 20 mg PO DAILY Insulin Glargine [Lantus] 20 unit SQ HS #1 vial Discharge Medication List Aspirin [Adult Low Dose Aspirin EC] 81 mg PO DAILY 09/11/17 [History] Spironolactone [Aldactone] 25 mg PO DAILY 09/11/17 [History] Lisinopril [Zestril] 2.5 mg PO DAILY #30 tab 09/16/17 [Rx] Furosemide [Lasix] 60 mg PO BID 12/14/17 [History] Ipratropium-Albuterol Nebulize [Duoneb 0.5 mg-3 mg/3 ml Soln] 3 ml INHALATION RT -QID #120 ampul.neb 12/24/17 [Rx] metFORMIN HCL [Glucophage] 500 mg PO BID #60 tab 12/24/17 [Rx] Albuterol Inhaler [Ventolin Hfa Inhaler] 1 - 2 puff INHALATION Q4HR PRN 30 Days #1 inhaler 02/08/18 [Rx] Pantoprazole [Protonix] 40 mg PO QAM #30 tablet. 02/08/18 [Rx] Budesonide-Formot 160-4.5 Mcg [Symbicort 160-4.5 Mcg Inhaler] 2 puff INHALATION RT-BID #1 inhaler 03/04/18 [Rx] Doxycycline Monohydrate [Vibramycin] 100 mg PO BID #4 capsule 03/04/18 [Rx] Insulin Detemir [Levemir] 10 unit SQ HS syr 03/04/18 [Rx] Metoprolol Succinate [Toprol XL] 50 mg PO DAILY #0 03/04/18 [Rx] predniSONE 10 mg PO DAILY #30 tab 03/04/18 [Rx] Follow up Appointment(s)/Referral(s): [facility] [Provider Group] - 03/09/18 2:00 pm Mary Merritt MD [Primary Care Provider] - 03/13/18 10:20 am (Tuesday) Ambulatory/Diagnostic Orders: Basic Metabolic Panel [LAB.AMB] Time Frame: 3 Days, Location: None Selected Patient Instructions/Handouts: Heart Failure (DC), Low Sodium Diet (DC) Discharge Disposition: HOME WITH HOME HEALTH SERVICES
== END 2018-03-04 13:06 | disposition home health service (06) | DRG 291 ==
LOC: EC 08:33 → 6SEL 10:32
PROVIDERS: ADMIT Hospitalist; ATTEND Hospitalist
DX: I13.0 Hypertensive heart and chronic kidney disease with heart failure and stage 1 through stage 4 chronic kidney disease, or unspecified chronic kidney disease (principal); I50.23 Acute on chronic systolic (congestive) heart failure; J96.21 Acute and chronic respiratory failure with hypoxia; E87.2 Acidosis; J44.1 Chronic obstructive pulmonary disease with (acute) exacerbation; E11.22 Type 2 diabetes mellitus with diabetic chronic kidney disease; E11.42 Type 2 diabetes mellitus with diabetic polyneuropathy; E66.9 Obesity, unspecified; Z68.32 Body mass index [BMI] 32.0-32.9, adult; E78.5 Hyperlipidemia, unspecified; E83.42 Hypomagnesemia; T50.905A Adverse effect of unspecified drugs, medicaments and biological substances, initial encounter; F17.200 Nicotine dependence, unspecified, uncomplicated; G47.33 Obstructive sleep apnea (adult) (pediatric); I25.10 Atherosclerotic heart disease of native coronary artery without angina pectoris; I25.5 Ischemic cardiomyopathy; M19.90 Unspecified osteoarthritis, unspecified site; N18.3 Chronic kidney disease, stage 3 (moderate); R77.8 Other specified abnormalities of plasma proteins; Z79.4 Long term (current) use of insulin; I25.2 Old myocardial infarction; Z79.82 Long term (current) use of aspirin; Z79.899 Other long term (current) drug therapy; Z82.49 Family history of ischemic heart disease and other diseases of the circulatory system; Z95.810 Presence of automatic (implantable) cardiac defibrillator; Z95.1 Presence of aortocoronary bypass graft; Z88.1 Allergy status to other antibiotic agents; Z91.040 Latex allergy status; Z88.8 Allergy status to other drugs, medicaments and biological substances; Z91.048 Other nonmedicinal substance allergy status; Z99.81 Dependence on supplemental oxygen; Z87.81 Personal history of (healed) traumatic fracture
CPT/HCPCS: 36415; 71045; 71046; 80048; 80053; 82550; 82553; 83735; 83880; 84484; 85025; 85610; 85730; 93005; 94640; 94760; 96365; 96366; 96375; 99285

== ENCOUNTER 2018-10-18 14:44 | Inpatient (IN) | payer MEDICARE ==
[2018-10-19] MEDS ORDERED: ceFAZolin IN SWFI 2 GM/20 ML SYRINGE IVP ONE (07:39)
[2018-10-19] MEDS ORDERED: LACTATED RINGERS 1,000 ML IV SCH (07:39)
[2018-10-19] MEDS ORDERED: SODIUM CHLORIDE 0.9% 1,000 ML IV SCH (07:39)
[2018-10-19] MEDS ORDERED: ceFAZolin 1,000 MG in SODIUM CHLORIDE 0.9% IRRIGATIO 250 ML IRRIGATION ONE (07:39)
[2018-10-19] MEDS: DOBUTamine DRIP 500 MG in DEXTROSE/WATER 1 250ML.BAG IV SCH ×2 (09:05→15:50)
[2018-10-19] MEDS ORDERED: MIDAZOLAM 2 MG/2 ML VIAL ONE (10:33)
[2018-10-19] MEDS ORDERED: fentaNYL (PF) 50 MCG/ML 2 ML AMP ONE (10:33)
[2018-10-19] MEDS ORDERED: PROPOFOL 10 MG/ML 20 ML VIAL IV ONE (10:33)
[2018-10-19] MEDS ORDERED: IV FLUID CONTINUATION 500 ML IV ONE (10:38)
[2018-10-19] MEDS ORDERED: LIDOCAINE 1% INJ 10MG/ML (20 ML MDV) SQ ONE ×3 (11:15→12:29)
[2018-10-19] MEDS ORDERED: ceFAZolin IN SWFI 2 GM/20 ML SYRINGE IVP STA (12:40)
[2018-10-19] MEDS ORDERED: LIDOCAINE 2% (PF) 20 MG/ML 5 ML VIAL SQ ONE (12:51)
[2018-10-19] MEDS ORDERED: ceFAZolin (PMX-bag) 1,000 MG in DEXTROSE/WATER 1 50ML.BAG IVPB STA (12:51)
[2018-10-19] MEDS ORDERED: ALBUTEROL NEBULIZED 2.5 MG/3 ML INHALATION PRN (14:27)
[2018-10-19] MEDS ORDERED: ACETAMINOPHEN TAB 325 MG TAB PO PRN (14:50)
[2018-10-19] MEDS ORDERED: ACETAMINOPHEN IV (For NPO) 1,000 MG in EMPTY BAG 1 BAG IVPB ONE (15:00)
--- NOTE | 2018-10-19 15:58 | P.GSCN ---
History of Present Illness Consult date: 10/19/18 Reason for Consult: Severe ischemic cardiomyopathy with severe LV dysfunction, need for LV lead placement Requesting physician: Glen Carroll History of present illness: This is a 63-year-old gentleman who follows on an outpatient basis with Dr. Mary Merritt. He has a previous medical history of severe ischemic cardiomyopathy, severe LV dysfunction with EF less than 20% status post ICD placement in 2013, permanent atrial fibrillation on chronic Eliquis for anticoagulation, coronary artery disease with myocardial infarction status post 1 vessel CABG approximately 35 years ago, hypertension, hyperlipidemia, diabetes mellitus, COPD with frequent steroid treatment, obstructive sleep apnea without CPAP use, home O2 dependent at bedtime, current tobacco dependence, and family history of early coronary artery disease with father of myocardial infarction at 56 years old. He was experiencing shortness of breath with wheezing and lower extremity edema and presented to [facility] approximately 2 weeks ago. He denied any chest pain, dizziness, palpitations. He was admitted for COPD exacerbation, acute on chronic systolic heart failure with a BNP 6795, and acute renal failure. Consultations were placed for cardiology, nephrology, and pulmonology. He was started on IV steroids, was on and off IV Lasix, was initiated on IV dobutamine and he began to feel better. At some point he did develop ischemic hepatitis from low perfusion state, was seen by gastroenterology without intervention, which has continued to resolve. He was eventually weaned off of dobutamine and discharge planning was in progress with plans for patient to return as an outpatient to have left ventricular lead placement by Dr. Carroll, however the patient did not tolerate discontinuation of dobutamine, he deteriorated and needed to be placed back on dobutamine. He was transferred from [facility] for placement of the left ventriclar lead on an inpatient basis. This was attempted today by Dr. Carroll, however he was unsuccessful. Dr. Hernández from cardiothoracic surgery was consulted for placement of left ventricular lead. Review of Systems Review of systems was completed and was negative except as noted in the HPI. Past Medical History Past Medical History: Atrial Fibrillation, Coronary Artery Disease (CAD), Chest Pain / Angina, Heart Failure, COPD, Diabetes Mellitus, Hyperlipidemia, Hypertension, Myocardial Infarction ([place]), Osteoarthritis (OA), Sleep Apnea/CPAP/BIPAP Additional Past Medical History / Comment(s): Coronary artery disease with a previous bypass surgery, ischemic cardiomyopathy with ejection fraction of less than 20%,HOME 02 2-2.5 LITERS AT HS, COPD, obstructive sleep apnea with an AHI of 24 currently on auto CPAP unit, obesity, AICD placement for ischemic cardiomyopathy, osteoarthritis, past fx rt leg, tinnitus Last Myocardial Infarction Date:: UNSURE History of Any Multi-Drug Resistant Organisms: None Reported Past Surgical History: AICD, Coronary Bypass/CABG, Heart Catheterization, Orthopedic Surgery Additional Past Surgical History / Comment(s): Pacemaker and AICD- 10/2013, CABG 1 vessel many yrs ago per pt, BILATERAL SHOULDER SURGERY , steel alcides in rt leg d/t fracture, bilat shoulders Past Anesthesia/Blood Transfusion Reactions: No Reported Reaction Type of Cardiac Device: Permanent Pacemaker, AICD Device Placement Date:: Past Psychological History: No Psychological Hx Reported Smoking Status: Current every day smoker Past Alcohol Use History: None Reported Additional Past Alcohol Use History / Comment(s): Previous history of alcohol abuse but denies current use Past Drug Use History: None Reported - Past Family History Mother History Unknown: Yes Father Family Medical History: Myocardial Infarction ([place]) Additional Family Medical History / Comment(s): Father of a [place] at the age of 56yrs. Brother(s) Family Medical History: Cancer Medications and Allergies Home Medications Medication Instructions Recorded Confirmed Type Spironolactone [Aldactone] 12.5 mg PO DAILY 09/11/17 10/19/18 History Lisinopril [Zestril] 2.5 mg PO DAILY #30 tab 09/16/17 10/19/18 Rx Ipratropium-Albuterol Nebulize 3 ml INHALATION RT-QID #120 12/24/17 10/19/18 Rx [Duoneb 0.5 mg-3 mg/3 ml Soln] ampul.neb metFORMIN HCL [Glucophage] 500 mg PO BID #60 tab 12/24/17 10/19/18 Rx Albuterol Inhaler [Ventolin Hfa 1 - 2 puff INHALATION Q4HR PRN 30 02/08/18 10/19/18 Rx Inhaler] Days #1 inhaler Budesonide-Formot 160-4.5 Mcg 2 puff INHALATION RT-BID #1 inhaler 03/04/18 10/19/18 Rx [Symbicort 160-4.5 Mcg Inhaler] Apixaban [Eliquis] 5 mg PO BID 10/19/18 10/19/18 History Furosemide [Lasix] 40 mg PO BID 10/19/18 10/19/18 History Isosorbide Dinitrate 20 mg PO TID 10/19/18 10/19/18 History Linagliptin [Tradjenta] 5 mg PO DAILY 10/19/18 10/19/18 History Metoprolol Succinate [Toprol XL] 25 mg PO DAILY 10/19/18 10/19/18 History Tamsulosin HCl [Flomax] 0.4 mg PO DAILY 10/19/18 10/19/18 History hydrALAZINE HCL 25 mg PO TID 10/19/18 10/19/18 History Allergies Allergy/AdvReac Type Severity Reaction Status Date / Time Latex, Natural Rubber Allergy Rash/Hives Verified 10/19/18 11:00 levofloxacin [From Levaquin] Allergy Rash/Hives Verified 10/19/18 11:00 mold Allergy Rash/Hives Verified 10/19/18 11:00 prednisone Allergy Rash/Hives Verified 10/19/18 11:00 STEROIDS Allergy Rash/Hives Uncoded 10/19/18 11:00 Surgical - Exam Vital Signs Temp Pulse Resp BP Pulse Ox 98.4 F 60 18 114/57 98 10/19/18 09:29 10/19/18 09:29 10/19/18 09:29 10/19/18 09:29 10/19/18 09:29 - General well developed, well nourished, no distress, no pain - Eyes PERRL, normal ocular movement - ENT no hearing loss - Neck no masses, no bruits, trachea midline - Respiratory Lungs sounds diminished bilaterally with expiratory wheezes present throughout. Respirations even, nonlabored. Currently on room air with oxygen saturation 98%. - Cardiovascular S1, S2 present. Irregular rate and rhythm, 100% paced on telemetry. Palpable peripheral pulses bilaterally. Bilateral lower extremity 2-3+ edema present. No calf pain or tenderness noted. - Abdomen Abdomen: soft, non tender, bowel sounds - Genitourinary [place] present draining clear, yellow urine. - Rectum Deferred - Integumentary no rash, no growths - Neurologic normal coordination, normal sensation - Musculoskeletal normal posture - Psychiatric oriented to time, oriented to person, oriented to place, speech is normal, memory intact Assessment and Plan Assessment: 1. Severe ischemic cardiomyopathy, severe LV dysfunction EF less than 20% status post ICD placement in 2013 2. Permanent atrial fibrillation on chronic Eliquis for anticoagulation 3. Coronary artery disease with myocardial infarction status post 1 vessel approximately 35 years ago 4. Hypertension 5. Hyperlipidemia 6. Diabetes mellitus 7. COPD with frequent steroid use 8. Obstructive sleep apnea, no CPAP use 9. Nightly home O2 dependent 10. Current tobacco dependence 11. Family history of premature coronary artery disease Plan: The patient was seen and examined at the bedside. Chart/diagnostics were reviewed with Dr. Carroll and Dr. Hernández. At this time we recommend maximizing medical therapy, improving cardiac and pulmonary status, and Eliquis metabolism. Continue albuterol, Symbicort per pulmonology. Diuretics, dobutamine per cardiology. Continue to hold Eliquis. Daily weights and accurate intake and output. Continue to monitor his labs and x-rays. More recommendations to follow including surgical placement of left ventricular lead as patient progresses. Thank you Dr. Carroll for this consult. We look forward to working with you in the care of your patient. Time with Patient: Greater than 30
[2018-10-19] MEDS ORDERED: ISOSORBIDE DINITRATE 20 MG TAB PO SCH (16:00)
[2018-10-19] MEDS ORDERED: hydrALAZINE HCL 25 MG TAB PO SCH ×2 (16:00→21:00)
[2018-10-19] MEDS: HYDROcodone/APAP 5-325MG 1 EACH TAB PO PRN ×2 (16:06→20:36)
[2018-10-19] MEDS: ISOSORBIDE DINITRATE 10 MG TAB PO SCH ×2 (16:07→20:35)
[2018-10-19] MEDS: IPRATROPIUM-ALBUTEROL 3 ML NEB INHALATION SCH ×2 (16:25→21:18)
[2018-10-19 16:32] LABS: Glucose,Whole Blood 146 mg/dL (75-99)
[2018-10-19] MEDS: INSULIN ASPART (NovoLOG) 100 UNIT/ML VIAL SQ SCH ×2 (17:15→20:33)
[2018-10-19] MEDS: ceFAZolin IN SWFI 2 GM/20 ML SYRINGE IVP SCH ×2 (18:07→22:56)
--- NOTE | 2018-10-19 18:49 | PCN ---
PROCEDURE NOTE Mr. Colvin was brought in for an upgrade to a biventricular ICD. DESCRIPTION OF PROCEDURE: The procedure was performed under conscious sedation. An 8-[place] venous sheath was placed in the right femoral vein, access into the coronary sinus. A catheter was later placed in the coronary sinus with some difficulty. The coronary sinus had a very tortuous origin as well as U-shaped curve. The left pectoral area was prepped and draped as per protocol. 1% lidocaine was used for local anesthesia. An incision was made directly over the previous surgical site and carried down to the level of the generator. The generator was explanted. A partial capsulectomy was performed and venous access was obtained and the left axillary vein and via this a sheath was placed in the vein. Via this sheath, the coronary sinus access catheter and sheaths were placed. This was an extremely difficult access in the coronary sinus. dye was injected in the atrium along the septum to identify the coronary sinus and we could see that there was a vein that was heading caudally from the septum and appeared to be the middle cardiac vein. Multiple sheaths, multiple catheters, multiple diagnostic and multiple diagnostic catheters both fixed curve as well as deflectable catheters were used but the coronary sinus could not be accessed from above. Following that, the catheter from below was placed in the coronary sinus with some difficulty and it was obvious that the vein that we had seen during atriography was not the middle cardiac vein, but actually the coronary sinus body. This coronary sinus vein started high up in the septum headed caudally and then made a U shaped turn upwards to the rest of the body, hence the difficulty in obtaining access from above. Now with the catheter in the coronary sinus from below, we targeted the coronary sinus from above once again with multiple sheaths and different diagnostic catheters. Initially a fixed catheter passed into the coronary sinus and the sheath was placed in the proximal portion of the coronary sinus. However, as soon as the diagnostic catheter was removed from the sheath, the sheath dislodged immediately from the proximal coronary sinus. This sheath had been placed in the proximal coronary sinus just proximal to where the U shaped bend. Therefore, once again after multiple attempts, we were able to place the fixed curved catheter, coronary sinus catheter into the coronary sinus and placed the sheath over it. However, because of instability issues, we had to place 0.35 wire, along with an inner sheath. The inner sheath and the wire were manipulated, but showed there was difficulty going around this U shaped bend. However after some difficulty, the wire slid into the main coronary sinus body and initially the subselecting sheath was placed over it and the outer sheath was placed over this subselected sheath and venogram was performed. However, at this point, a venogram revealed dissection and despite multiple attempts with the angioplasty wire, we could not find the true body of the coronary sinus. At this time, the decision made to abandon the procedure because of the flap created as we were trying to cross the U-shaped bend in the coronary sinus body. The patient remained hemodynamically stable. The venous sheaths and catheters from below in the groin were also removed. The device was placed back in the pocket and the wound was closed in 3 layers and dressed per protocol. RESULT: Unsuccessful attempt at the coronary sinus cannulation on account of extremely tortuous and unusual anatomy of the coronary sinus as described above. The procedure took more than 2 hours simply to cannulate the coronary sinus. PLAN: Thoracoscopic/surgical placement of the LV lead since the patient has severe cardiomyopathy with 100% RV pacing and dilated left ventricle and 2+ MR and is unable to get off and has severe heart failure class 3 unstable. MMODL / IJN: [id number] / BARAK
[2018-10-19 20:27] LABS: Glucose,Whole Blood 164 mg/dL (75-99)
[2018-10-19] MEDS: ENOXAPARIN 40 MG/0.4 ML SYRINGE SQ SCH (20:34)
[2018-10-19] MEDS ORDERED: FUROSEMIDE 10 MG/ML 4 ML VIAL IV SCH (21:00)
[2018-10-19] MEDS ORDERED: FUROSEMIDE 40 MG TAB PO SCH (21:00)
[2018-10-19] MEDS ORDERED: METOPROLOL TARTRATE 25 MG TAB PO SCH (21:00)
[2018-10-19] MEDS: SYMBICORT 160-4.5 MCG INHALER INHALATION SCH (21:19)
[2018-10-19] MEDS: FUROSEMIDE 100 MG in SODIUM CHLORIDE 0.9% 90 ML IV SCH (22:56)
[2018-10-20] MEDS: HYDROcodone/APAP 5-325MG 1 EACH TAB PO PRN ×5 (04:39→23:44)
[2018-10-20 06:03] LABS: Glucose,Whole Blood 164 mg/dL (75-99)
[2018-10-20 06:16] LABS: Anisocytosis Slight; Basophils % (A) 0 %; Eosinophils # (A) 0.1 k/uL (0-0.7); Eosinophils % (A) 1 %; HCT 27.3 % (39.0-53.0); Hypochromasia Marked; Lymphocytes # (A) 0.6 k/uL (1.0-4.8); Lymphocytes % (A) 9 %; MCH 23.8 pg (25.0-35.0); MCHC 29.2 g/dL (31.0-37.0); MCV 81.6 fL (80.0-100.0); Mean Platelet Volume 8.5; Microcytosis Slight; Monocytes # (A) 0.6 k/uL (0-1.0); Monocytes % (A) 8 %; Neutrophils # (A) 5.6 k/uL (1.3-7.7); Neutrophils % (A) 81 %; Platelet Count 134 k/uL (150-450); Poikilocytosis Slight; RBC 3.34 m/uL (4.30-5.90); RDW 18.5 % (11.5-15.5); WBC 6.9 k/uL (3.8-10.6)
[2018-10-20] MEDS: ceFAZolin IN SWFI 2 GM/20 ML SYRINGE IVP SCH (06:21)
[2018-10-20] MEDS: INSULIN ASPART (NovoLOG) 100 UNIT/ML VIAL SQ SCH ×4 (06:21→21:21)
[2018-10-20] MEDS: DOBUTamine DRIP 500 MG in DEXTROSE/WATER 1 250ML.BAG IV SCH ×2 (06:25→08:31)
[2018-10-20] MEDS: FUROSEMIDE 100 MG in SODIUM CHLORIDE 0.9% 90 ML IV SCH (06:26)
[2018-10-20 06:35] LABS: ALT 156 U/L (21-72); AST 47 U/L (17-59); Albumin 3.1 g/dL (3.5-5.0); Alkaline Phosphatase 113 U/L (38-126); Anion Gap 7 mmol/L; Blood Urea Nitrogen 19 mg/dL (9-20); Calcium 8.1 mg/dL (8.4-10.2); Carbon Dioxide 30 mmol/L (22-30); Chloride 95 mmol/L (98-107); Glucose 136 mg/dL (74-99); Magnesium 2.1 mg/dL (1.6-2.3); Potassium 3.5 mmol/L (3.5-5.1); Sodium 132 mmol/L (137-145); Total Bilirubin 2.6 mg/dL (0.2-1.3); Total Protein 5.2 g/dL (6.3-8.2)
--- NOTE | 2018-10-20 07:48 | P.PN ---
Subjective Principal diagnosis: Patient is doing well. He is resting comfortably in bed. His breathing is a lot better after he put out greater than 6 L on IV Lasix drip 10 mg an hour along with IV dobutamine 5 mics The night before given him 12 hours of an IV Lasix drip and he had put out greater than 2 L at [facility]. This is what allowed him to lay flat during the EP procedure He has severe ischemic coronary myopathy severe heart failure 2-3+ mitral regurgitation which is central and related to LV dilation with a structurally normal valve on 2-D echo He has persistent atrial fibrillation Underlying complete heart block with 100% RV pacing which has resulted in deterioration of LV function and heart failure status Yesterday he underwent an attempt at Reggie sinus cannulation but given the anatomy of the coronary sinus which was literally a U shaped structure/vein, negotiating the bottom of the U resulted in endothelial dissection. There was also a valve right there at that juncture which made it difficult to cross that point. After crossing the point and a venogram was performed dissection was noted that the patient was given directly stable and the procedure was aborted I continued IV dobutamine and last night I treated him with IV Lasix drip 10 mg an hour and he has put out greater than 6 L. He still has lower extremity edema but now at about 45 angle there is no JVD breath sounds are reduced with scattered rhonchi no crackles. He does have severe COPD/asthmatic variety Today his blood pressures 130/58 mmHg respirations 18, pulse rate in the 80s. His pacemaker has been programmed to VVIR 80 PPM No JVD Still has bilateral lower extremity edema Reduced breath sounds bilaterally with scattered rhonchi Heart sounds are regular, soft systolic murmur only at the apex White count 6.9 Hemoglobin 8.0 Platelet count 134,000, please note while he is off apixaban, he is on subcutaneous Lovenox for DVT prophylaxis Sodium 132, potassium 3.5, BUN 19, creatinine 0.85 ALT improving Impression Initially admitted to [facility] with asthmatic bronchitis, severe and treated with IV steroids and later by mouth steroids At that time he had heart failure with a low flow state without congestion With IV Lasix he had deterioration of renal function with development of hyper kalemia on account of hypoperfusion His AST and ALT kristie to greater than 1000 on account of low flow He responded very well to IV dobutamine only However once IV dobutamine was stopped he developed congestive CHF even with the minimal fluids he was given An IV Lasix drip was used prior to the EP procedure and he diabetes better than 2 L one night before being transferred to [facility] Severe ischemic coronary myopathy, dilated left ventricle with a central 2+ MR with a structurally normal valve Congestive heart failure with both congestion and low flow state, improving on therapy Persistent atrial fibrillation Renal function has normalized and liver functions are improving steadily Low hemoglobin. His baseline is somewhere between 9 and 10 the [facility] records Suggest At this time since he is on IV dobutamine, beta blockers are on hold Lastly I had treated him with hydralazine and isosorbide. I have stopped this now Lisinopril has been stopped in anticipation of starting ENTRESTO which will start tomorrow I stopped his IV Lasix drip and switched him to by mouth Lasix 80 mg twice daily along with 50mg of Aldactone Potassium and magnesium supplementation Inhaled steroids only, no IV or by mouth steroids Today I will continue dobutamine 2.5 mics along with by mouth Lasix and by mouth Aldactone Tomorrow we will start ENTRESTO Thereafter tomorrow hopefully I can turn off dobutamine and restart the beta hermilo Based upon his blood pressure response to ENTRESTO I will dose Toprol accordingly. He does have severe asthmatic bronchitis and I would avoid nonselective beta blockers DVT prophylaxis with Lovenox while he is off ELIQUIS If he is deemed too high risk for thoracoscopic implantation of LV lead I would restart ELIQUIS once again, quickly for stroke prophylaxis Discussed with CT surgery team I spoke to Dr. Hernández yesterday Objective - Vital Signs Vital signs: Vital Signs Temp 97.9 F 10/19/18 20:00 Pulse 80 10/20/18 04:00 Resp 18 10/20/18 04:00 BP 113/58 10/20/18 04:00 Pulse Ox 97 10/20/18 04:00 Intake & Output 10/19/18 10/20/18 10/20/18 18:59 06:59 18:59 Intake Total 286 553.375 Output Total 750 6500 Balance -536 -1750.993 Intake: IV 50 Intake, IV Titration 317.375 Amount DOBUTamine DRIP 500 mg In 242.375 Dextrose/Water 1 250ml. bag @ 5 MCG/KG/MIN 16.62 mls/hr IV .Q15H3M [facility]O Rx# :[id number] Furosemide 100 mg In 75 Sodium Chloride 0.9% 90 ml @ 10 MG/HR 10 mls/hr IV .Q10H BRO Rx#: [id number] Oral 236 236 Output: Urine 750 6500 Other: Voiding Method Indwelling Catheter Indwelling Catheter # Voids 1 - Labs CBC & Chem 7: 10/20/18 06:03 10/20/18 06:03 Labs: Abnormal Lab Results - Last 24 Hours (Table) 10/19/18 10/19/18 10/20/18 Range/Units 16:28 20:26 06:01 RBC (4.30-5.90) m/uL Hgb (13.0-17.5) gm/dL Hct (39.0-53.0) % MCH (25.0-35.0) pg MCHC (31.0-37.0) g/dL RDW (11.5-15.5) % Plt Count (150-450) k/uL Lymphocytes # (1.0-4.8) k/uL Sodium (137-145) mmol/L Chloride (98-107) mmol/L Glucose (74-99) mg/dL POC Glucose (mg/dL) 146 H 164 H 164 H (75-99) mg/dL Calcium (8.4-10.2) mg/dL Total Bilirubin (0.2-1.3) mg/dL ALT (21-72) U/L Total Protein (6.3-8.2) g/dL Albumin (3.5-5.0) g/dL 10/20/18 10/20/18 Range/Units 06:03 06:03 RBC 3.34 L (4.30-5.90) m/uL Hgb 8.0 L (13.0-17.5) gm/dL Hct 27.3 L (39.0-53.0) % MCH 23.8 L (25.0-35.0) pg MCHC 29.2 L (31.0-37.0) g/dL RDW 18.5 H (11.5-15.5) % Plt Count 134 L (150-450) k/uL Lymphocytes # 0.6 L (1.0-4.8) k/uL Sodium 132 L (137-145) mmol/L Chloride 95 L (98-107) mmol/L Glucose 136 H (74-99) mg/dL POC Glucose (mg/dL) (75-99) mg/dL Calcium 8.1 L (8.4-10.2) mg/dL Total Bilirubin 2.6 H (0.2-1.3) mg/dL ALT 156 H (21-72) U/L Total Protein 5.2 L (6.3-8.2) g/dL Albumin 3.1 L (3.5-5.0) g/dL
[2018-10-20] MEDS: IPRATROPIUM-ALBUTEROL 3 ML NEB INHALATION SCH ×4 (08:09→20:43)
[2018-10-20] MEDS: SYMBICORT 160-4.5 MCG INHALER INHALATION SCH ×2 (08:09→20:43)
--- NOTE | 2018-10-20 08:13 | P.HPCAR ---
History of Present Illness Patient was transferred from [facility] for management of acute on chronic heart failure He has underlying severe ischemic cardiac myopathy with severe LV dysfunction with 2-3+ MR Left ventricular systolic function severely reduced Permanent atrial fibrillation 100% paced in the right ventricle Recurrent heart failure symptoms initially with low forward flow state that required IV dobutamine However after stopping dobutamine he started developing congestion with congestive heart failure and fluid buildup requiring reinitiation of IV dobutamine as well as an IV Lasix drip. Discharge from [facility] to home was canceled Last night he put out greater than 2 L of urine on an IV Lasix drip at 10 mg an hour Severe lung disease, asthmatic bronchitis, initially on steroids. These were tapered off last Tuesday Persistent atrial fibrillation On hydralazine and isosorbide Chronic kidney disease with recurrent hyperkalemia last week hence NANNETTE inhibitor as wood on hold On beta blockers Toprol-XL Unable to use spironolactone on account of a tendency for hyperkalemia Plan is to upgrade to a biventricular ICD and hopefully thereafter with improved perfusion nannette inhibitors and spironolactone could be reinitiated if possible Patient is appropriately anticoagulated with apixaban for stroke prevention Past Medical History Past Medical History: Coronary Artery Disease (CAD), Chest Pain / Angina, Heart Failure, COPD, Diabetes Mellitus, Hyperlipidemia, Myocardial Infarction ([place]), Osteoarthritis ([place]) Additional Past Medical History / Comment(s): Coronary artery disease with a previous bypass surgery, ischemic cardiomyopathy with ejection fraction of less than 20%,HOME 02 2-2.5 LITERS AT HS, COPD, obstructive sleep apnea with an AHI of 24 currently on auto CPAP unit, obesity, hypertension, AICD placement for ischemic cardiomyopathy, Cardiomyopathy, osteoarthritis, diabetes mellitus, hyperlipidemia, hypertension.past fx rt leg.tinnitus Last Myocardial Infarction Date:: UNSURE History of Any Multi-Drug Resistant Organisms: None Reported Past Surgical History: AICD, Coronary Bypass/CABG, Heart Catheterization, Orthopedic Surgery Additional Past Surgical History / Comment(s): Pacemaker and AICD- 10/2013, CABG 1 vessel many yrs ago per pt, BILATERAL SHOULDER SURGERY , steel alcides in rt leg d/t fracture, bilat shoulders Past Anesthesia/Blood Transfusion Reactions: No Reported Reaction Type of Cardiac Device: Permanent Pacemaker, AICD Device Placement Date:: Smoking Status: Current every day smoker - Past Family History Brother(s) Family Medical History: Cancer Father Family Medical History: Myocardial Infarction ([place]) Additional Family Medical History / Comment(s): Father of a [place] at the age of 56yrs. Mother History Unknown: Yes Results 10/20/18 06:03 10/20/18 06:03
--- NOTE | 2018-10-20 08:26 | XR ---
EXAMINATION TYPE: XR chest 1V portable DATE OF EXAM: 10/20/2018 HISTORY: Shortness of breath. COMPARISON: March 02, 2018 TECHNIQUE: Single view of the chest is submitted. FINDINGS: Demonstrated are scattered senescent parenchymal change. There is no evidence for focal infiltrate. The heart is enlarged without evidence for congestive failure at this time. Pacer device is in place. Sternotomy wires mediastinal clips noted. Right-sided PICC line identified. Hilar and mediastinal structures are within normal limits. Degenerative changes are seen of the dorsal spine. IMPRESSION: 1. Chronic changes without evidence for acute pulmonary disease.
[2018-10-20] MEDS: FUROSEMIDE 80 MG TAB PO SCH ×2 (08:32→15:33)
[2018-10-20] MEDS: ENOXAPARIN 40 MG/0.4 ML SYRINGE SQ SCH ×2 (08:32→19:49)
[2018-10-20] MEDS: SPIRONOLACTONE 25 MG TAB PO SCH (08:32)
[2018-10-20] MEDS: POTASSIUM CHLORIDE ER 20 MEQ TAB.ER PO SCH (08:32)
[2018-10-20] MEDS: ATORVASTATIN 20 MG TAB PO SCH (08:32)
[2018-10-20] MEDS: TAMSULOSIN 0.4 MG CAP.ER.24H PO SCH (08:32)
[2018-10-20] MEDS: MAGNESIUM OXIDE 400 MG TAB PO SCH (08:32)
[2018-10-20] MEDS ORDERED: SPIRONOLACTONE 25 MG TAB PO SCH ×2 (09:00)
[2018-10-20] MEDS ORDERED: LISINOPRIL 2.5 MG TAB PO SCH (09:00)
[2018-10-20] MEDS ORDERED: METOPROLOL SUCCINATE (ER) 25 MG TAB.ER.24H PO SCH (09:00)
[2018-10-20 11:40] LABS: Glucose,Whole Blood 141 mg/dL (75-99)
--- NOTE | 2018-10-20 13:25 | P.PN ---
Subjective Progress Note Date: 10/20/18 Principal diagnosis: Severe ischemic cardiomyopathy, severe LV dysfunction with EF less than 20% status post ICD placement in 2014, permanent atrial fibrillation on chronic Eliquis for anticoagulation, coronary artery disease with myocardial infarction status post one-vessel CABG approximately 35 years ago, hypertension, hyperlipidemia, diabetes mellitus, COPD with frequent steroid use, obstructive sleep apnea without CPAP use, nightly home O2 dependent, current tobacco depen dence, family history of premature coronary artery disease. POD #1 failed attempt at ICD upgrade secondary to tortuous and unusual anatomy of the coronary sinus The patient is currently sitting up in bed on the cardiac stepdown unit in no acute distress. States shortness of breath has improved, does complain of surgical pain over his pacemaker site. Patient diuresed approximately 6 L overnight, still has 2-3+ pitting edema to his lower extremities, lungs sounds improved from yesterday. Remains hemodynamically stable. Medications have been adjusted per Dr. Carroll. Objective - Vital Signs Vital signs: Vital Signs Temp 97.9 F 10/19/18 20:00 Pulse 80 10/20/18 04:00 Resp 18 10/20/18 04:00 BP 113/58 10/20/18 04:00 Pulse Ox 97 10/20/18 04:00 Intake & Output 10/19/18 10/20/18 10/20/18 18:59 06:59 18:59 Intake Total 286 553.375 Output Total 750 6500 Balance -121 -5553.625 Intake: IV 50 Intake, IV Titration 317.375 Amount DOBUTamine DRIP 500 mg In 242.375 Dextrose/Water 1 250ml. bag @ 5 MCG/KG/MIN 16.62 mls/hr IV .Q15H3M [facility] Rx# :[id number] Furosemide 100 mg In 75 Sodium Chloride 0.9% 90 ml @ 10 MG/HR 10 mls/hr IV .Q10H [facility] Rx#: [id number] Oral 236 236 Output: Urine 750 6500 Other: Voiding Method Indwelling Catheter Indwelling Catheter # Voids 1 - Constitutional General appearance: Present: cooperative, no acute distress, obese - Respiratory Details: Lungs sounds diminished bilaterally with coarse breath sounds at the bases. Respirations even, nonlabored. Currently on room air with oxygen saturation 97%. Able to achieve 5131-8770 mL on his incentive spirometry. Strong, nonproductive cough. - Cardiovascular Details: S1, S2 present. Regular rate and rhythm, 100% paced on telemetry. Palpable peripheral pulses bilaterally. Lower extremity 2-3+ pitting edema present bilaterally. No calf pain or tenderness noted. - Gastrointestinal Gastrointestinal Comment(s): Abdomen soft, nontender, nondistended. Active bowel sounds present 4 quadrants. Tolerating diet. - Genitourinary Genitourinary Comment(s): [place] present draining clear, yellow urine. Output 5980 mL in the last 8 hours. - Integumentary Integumentary Comment(s): Skin is warm, dry and pink. Left anterior chest incision covered with dry intact dressing. - Neurologic Neurologic: Present: CNII-XII intact - Musculoskeletal Musculoskeletal: Present: strength equal bilaterally - Psychiatric Psychiatric: Present: A&O x's 3, appropriate affect, intact judgment & insight - Allied health notes Allied health notes reviewed: nursing - Labs CBC & Chem 7: 10/20/18 06:03 10/20/18 06:03 Labs: Abnormal Lab Results - Last 24 Hours (Table) 10/19/18 10/19/18 10/20/18 Range/Units 16:28 20:26 06:01 RBC (4.30-5.90) m/uL Hgb (13.0-17.5) gm/dL Hct (39.0-53.0) % MCH (25.0-35.0) pg MCHC (31.0-37.0) g/dL RDW (11.5-15.5) % Plt Count (150-450) k/uL Lymphocytes # (1.0-4.8) k/uL Sodium (137-145) mmol/L Chloride (98-107) mmol/L Glucose (74-99) mg/dL POC Glucose (mg/dL) 146 H 164 H 164 H (75-99) mg/dL Calcium (8.4-10.2) mg/dL Total Bilirubin (0.2-1.3) mg/dL ALT (21-72) U/L Total Protein (6.3-8.2) g/dL Albumin (3.5-5.0) g/dL 10/20/18 10/20/18 Range/Units 06:03 06:03 RBC 3.34 L (4.30-5.90) m/uL Hgb 8.0 L (13.0-17.5) gm/dL Hct 27.3 L (39.0-53.0) % MCH 23.8 L (25.0-35.0) pg MCHC 29.2 L (31.0-37.0) g/dL RDW 18.5 H (11.5-15.5) % Plt Count 134 L (150-450) k/uL Lymphocytes # 0.6 L (1.0-4.8) k/uL Sodium 132 L (137-145) mmol/L Chloride 95 L (98-107) mmol/L Glucose 136 H (74-99) mg/dL POC Glucose (mg/dL) (75-99) mg/dL Calcium 8.1 L (8.4-10.2) mg/dL Total Bilirubin 2.6 H (0.2-1.3) mg/dL ALT 156 H (21-72) U/L Total Protein 5.2 L (6.3-8.2) g/dL Albumin 3.1 L (3.5-5.0) g/dL - Imaging and Cardiology Chest x-ray: report reviewed, image reviewed Assessment and Plan Assessment: 1. Severe ischemic cardiomyopathy, severe LV dysfunction, acute on chronic systolic heart failure, EF less than 20% status post ICD placement in 2013 2. Permanent atrial fibrillation on chronic Eliquis for anticoagulation 3. Coronary artery disease with myocardial infarction status post 1 vessel CABG approximately 35 years ago 4. Hypertension 5. Hyperlipidemia 6. Diabetes mellitus 7. COPD with frequent steroid use 8. Obstructive sleep apnea, no CPAP use 9. Nightly home O2 dependent 10. Current tobacco dependence 11. Family history of premature coronary artery disease Plan: 1. Continue to maximize medical therapy with Entresto (to be started tomorrow), Lasix/Aldactone, dobutamine per cardiology. Reinitiate beta hermilo therapy once off dobutamine. 2. Continue albuterol, Symbicort per pulmonology. Encourage incentive spirometry 10 times every hour while awake. Patient needs aggressive pulmonary management. 3. Heart failure management including daily weights and accurate intake and output. 4. Will continue to monitor labs and x-rays. Electrolyte replacement protocol. 5. DVT prophylaxis with Lovenox while off Eliquis. 6. More recommendations to follow regarding surgical placement of left ventricular lead as patient progresses, Eliquis will need to be held 3 days prior to surgical intervention. 7. Case discussed in detail with Dr. Hernández last night, discussed with Dr. Tapia and Dr. Carroll this morning. Will update Dr. Hernández for recommendations of timing for LV lead placement, if not going to take place the next couple of days okay to restart Eliquis. Time with Patient: Greater than 30
--- NOTE | 2018-10-20 16:00 | P.HPIM ---
History of Present Illness 63-year-old pleasant gentleman with history of COPD heart failure ejection fraction of less than 20% with an ACT was admitted to [facility] 2 days ago with shortness of breath was treated for heart failure as well as COPD pa katy became hypovolemic went into renal failure Lasix was held which led to have hepatic congestion heart failure exacerbation with subsequently improved with the dobutamine drip. Patient was also hyponatremic initial hypervolemic hyponatremia improved with IV Lasix. Patient is presently on dobutamine drip patient was transferred here to this hospital for conversion of AICD to biventricular ICD, unable to undergo this procedure because programming engineer was not able to access coronary sinus and the cardiothoracic was surgery was consulted, presently his heart failure is being optimized. His PERRLA and 60 twice a day of Lasix serum sodium of 125. Patient also is feeling much better not on any IV Lasix for steroids at this time. Review of Systems REVIEW OF SYSTEMS: CONSTITUTIONAL: No fever, no malaise, no fatigue. HEENT: No recent visual problems or hearing problems. Denied any sore throat. CARDIOVASCULAR: No chest pain, orthopnea, PND, no palpitations, no syncope. PULMONARY: No shortness of breath, no cough, no hemoptysis. GASTROINTESTINAL: No diarrhea, no nausea, no vomiting, no abdominal pain. NEUROLOGICAL: No headaches, no weakness, no numbness. HEMATOLOGICAL: Denies any bleeding or petechiae. GENITOURINARY: Denies any burning micturition, frequency, or urgency. MUSCULOSKELETAL/RHEUMATOLOGICAL: Denies any joint pain, swelling, or any muscle pain. ENDOCRINE: Denies any polyuria or polydipsia. The rest of the 14-point review of systems is negative. Past Medical History Past Medical History: Coronary Artery Disease (CAD), Chest Pain / Angina, Heart Failure, COPD, Diabetes Mellitus, Hyperlipidemia, Myocardial Infarction (MS), Osteoarthritis (OA) Additional Past Medical History / Comment(s): Coronary artery disease with a previous bypass surgery, ischemic cardiomyopathy with ejection fraction of less than 20%,HOME 02 2-2.5 LITERS AT [facility], COPD, obstructive sleep apnea with an AHI of 24 currently on auto CPAP unit, obesity, hypertension, AICD placement for ischemic cardiomyopathy, Cardiomyopathy, osteoarthritis, diabetes mellitus, hyperlipidemia, hypertension.past fx rt leg.tinnitus Last Myocardial Infarction Date:: UNSURE History of Any Multi-Drug Resistant Organisms: None Reported Past Surgical History: AICD, Coronary Bypass/CABG, Heart Catheterization, Orthopedic Surgery Additional Past Surgical History / Comment(s): Pacemaker and AICD- 10/2013, CABG 1 vessel many yrs ago per pt, BILATERAL SHOULDER SURGERY , steel alcides in rt leg d/t fracture, bilat shoulders Past Anesthesia/Blood Transfusion Reactions: No Reported Reaction Type of Cardiac Device: Permanent Pacemaker, AICD Device Placement Date:: Smoking Status: Current every day smoker - Past Family History Mother History Unknown: Yes Father Family Medical History: Myocardial Infarction (MS) Additional Family Medical History / Comment(s): Father of a MS at the age of 56yrs. Brother(s) Family Medical History: Cancer Medications and Allergies Home Medications Medication Instructions Recorded Confirmed Type Lisinopril [Zestril] 2.5 mg PO DAILY #30 tab 09/16/17 10/19/18 Rx metFORMIN HCL [Glucophage] 500 mg PO BID #60 tab 12/24/17 10/19/18 Rx Albuterol Inhaler [Ventolin Hfa 2 puff INHALATION RT-Q4H PRN 10/19/18 10/19/18 History Inhaler] Albuterol Nebulized [Ventolin 2.5 mg INHALATION RT-QID PRN 10/19/18 10/19/18 History Nebulized] Apixaban [Eliquis] 5 mg PO BID 10/19/18 10/19/18 History Atorvastatin [Lipitor] 20 mg PO DAILY 10/19/18 10/19/18 History Furosemide [Lasix] 60 mg PO BID 10/19/18 10/19/18 History Metoprolol Succinate [Kapspargo 50 mg PO DAILY 10/19/18 10/19/18 History Sprinkle] Allergies Allergy/AdvReac Type Severity Reaction Status Date / Time Latex, Natural Rubber Allergy Rash/Hives Verified 10/19/18 15:53 levofloxacin [From Levaquin] Allergy Rash/Hives Verified 10/19/18 15:53 mold Allergy Rash/Hives Verified 10/19/18 15:53 prednisone Allergy Rash/Hives Verified 10/19/18 15:53 STEROIDS Allergy Rash/Hives Uncoded 10/19/18 11:00 Physical Exam Vitals: Vital Signs Temp Pulse Pulse Resp BP Pulse Ox 10/20/18 13:10 84 10/20/18 12:58 80 10/20/18 12:00 97.6 F 82 18 108/67 97 10/20/18 08:19 84 10/20/18 08:11 80 97 10/20/18 08:00 97.9 F 78 20 100/54 99 10/20/18 04:00 80 18 113/58 97 10/20/18 03:46 80 18 10/20/18 00:27 83 18 109/59 99 10/20/18 00:00 83 18 10/19/18 23:00 80 18 109/61 99 10/19/18 21:32 81 10/19/18 21:20 81 10/19/18 20:00 97.9 F 80 18 120/58 100 10/19/18 16:36 80 10/19/18 16:28 80 10/19/18 16:00 98.2 F 81 18 95/52 99 Intake and Output 10/20/18 10/20/18 10/20/18 06:59 14:59 22:59 Intake Total 317.375 Output Total 5950 1200 1000 Balance -5632.625 -1200 -1000 Intake: Intake, IV Titration 317.375 Amount DOBUTamine DRIP 500 mg In 242.375 Dextrose/Water 1 250ml. bag @ 5 MCG/KG/MIN 16.62 mls/hr IV .Q15H3M [facility] Rx# :[id number] Furosemide 100 mg In 75 Sodium Chloride 0.9% 90 ml @ 10 MG/HR 10 mls/hr IV .Q10H [facility] Rx#: [id number] Output: Urine 5950 1200 1000 Other: Voiding Method Indwelling Catheter Indwelling Catheter # Voids 1 Weight 110.8 kg PHYSICAL EXAMINATION: GENERAL: The patient is alert and oriented x3, not in any acute distress. Well developed, well nourished. HEENT: Pupils are round and equally reacting to light. EOMI. No scleral icterus. No conjunctival pallor. Normocephalic, atraumatic. No pharyngeal erythema. No thyromegaly. CARDIOVASCULAR: S1 and S2 present. No murmurs, rubs, or gallops. Delayed appears to have mildly elevated JVD PULMONARY: Chest is clear to auscultation, no wheezing or crackles. ABDOMEN: Soft, nontender, nondistended, normoactive bowel sounds. No palpable organomegaly. MUSCULOSKELETAL: No joint swelling or deformity. EXTREMITIES: No cyanosis, clubbing, or pedal edema. NEUROLOGICAL: Gross neurological examination did not reveal any focal deficits. SKIN: No rashes. Results CBC & Chem 7: 10/20/18 06:03 10/20/18 06:03 Labs: Abnormal Lab Results - Last 24 Hours (Table) 10/19/18 10/19/18 10/20/18 Range/Units 16:28 20:26 06:01 RBC (4.30-5.90) m/uL Hgb (13.0-17.5) gm/dL Hct (39.0-53.0) % MCH (25.0-35.0) pg MCHC (31.0-37.0) g/dL RDW (11.5-15.5) % Plt Count (150-450) k/uL Lymphocytes # (1.0-4.8) k/uL Sodium (137-145) mmol/L Chloride (98-107) mmol/L Glucose (74-99) mg/dL POC Glucose (mg/dL) 146 H 164 H 164 H (75-99) mg/dL Calcium (8.4-10.2) mg/dL Total Bilirubin (0.2-1.3) mg/dL ALT (21-72) U/L Total Protein (6.3-8.2) g/dL Albumin (3.5-5.0) g/dL 10/20/18 10/20/18 10/20/18 Range/Units 06:03 06:03 11:36 RBC 3.34 L (4.30-5.90) m/uL Hgb 8.0 L (13.0-17.5) gm/dL Hct 27.3 L (39.0-53.0) % MCH 23.8 L (25.0-35.0) pg MCHC 29.2 L (31.0-37.0) g/dL RDW 18.5 H (11.5-15.5) % Plt Count 134 L (150-450) k/uL Lymphocytes # 0.6 L (1.0-4.8) k/uL Sodium 132 L (137-145) mmol/L Chloride 95 L (98-107) mmol/L Glucose 136 H (74-99) mg/dL POC Glucose (mg/dL) 141 H (75-99) mg/dL Calcium 8.1 L (8.4-10.2) mg/dL Total Bilirubin 2.6 H (0.2-1.3) mg/dL ALT 156 H (21-72) U/L Total Protein 5.2 L (6.3-8.2) g/dL Albumin 3.1 L (3.5-5.0) g/dL Thrombosis Risk Factor Assmnt - Choose All That Apply Any of the Below Risk Factors Present?: Yes Each Factor Represents 1 point: Abnormal pulmonary function (COPD), Obesity (BMI >25), Swollen legs (current) Other Risk Factors: Yes Each Risk Factor Represents 2 Points: Age 61-74 years, Central venous access Other congenital or acquired thrombophilia - If yes, enter type in comment: No Thrombosis Risk Factor Assessment Total Risk Factor Score: 7 Thrombosis Risk Factor Assessment Level: High Risk Assessment and Plan Plan: Congestive heart failure chronic systolic dysfunction with mild acute exacerbation presently, continue with present medications including dobutamine as recommended by cardiology patient will undergo biventricular ICD placement by cardiothoracic surgery although not emergent at this time -COPD without any acute exacerbation -Permanent atrial fibrillation presently rate controlled continue with anticoagu lation -COPD without any acute exacerbation will be continued on inhaled steroids and inhalational treatments -Hypertension -Hyperlipidemia -Hyponatremia hypervolemic hyponatremia expected to improve with treatment of heart failure
[2018-10-20 16:25] LABS: Glucose,Whole Blood 157 mg/dL (75-99)
--- NOTE | 2018-10-20 17:42 | P.CNPUL ---
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 This patient suffers from severe ischemic cardiomyopathy and the patient has severe LV function impairment with a +2-3 mitral regurgitation. The patient has permanent atrial fibrillation. The patient's 100% paced and the right ventricle. The patient was having recurrent bouts of congestive heart failure and during this most recent admission the patient developed CHF and required inotropes in the form of dobutamine and Lasix drip. Note that the patient also has multiple other medical problems including coronary artery disease, previous bypass surgery, ischemic cardiomyopathy with an ejection fraction of less than 20%, chronic hypoxic respiratory failure and the patient is on oxygen at 2 L per minute nasal cannula, COPD, obstructive sleep apnea with an AHI of 24 and the patient is unable to tolerate CPAP therapy and he has hypertension, hyperlipidemia and degenerative arthritis. He has undergone previous multivessel bypass surgery many years back. In any rate, during this most rated admission, he was an attempt to upgrade the patient to a biventricular AICD and this was not successful. The patient will be having a surgical placement of the ventricular lead. Currently is transferred. The time of transfer, the patient was found to be short of breath. He was placed again on dobutamine and he was placed on Lasix. He diuresed more than 6 L. By the time of my arrival, the patient was already feeling better. He was not short of breath. Denied having any cough or sputum production. No pleurisy or hemoptysis. No altered mentation. No nausea. No vomiting. He is tolerating the dobutamine at 2.5 g per KG per minute. The tentative plan is to undergo the surgical intervention on Tuesday which is 2 days from now. No other significant events otherwise for now. Review of Systems Constitutional: Reports fatigue, Reports lethargy, Reports weight gain Eyes: denies as per HPI, denies blurred vision, denies bulging eye, denies decreased vision, denies diplopia, denies discharge, denies dry eye, denies irritation, denies itching, denies pain, denies photophobia, denies loss of peripheral vision, denies loss of vision, denies tunnel vision/blind spots Ears: deny: decreased hearing, ear discharge, earache, tinnitus Ears, nose, mouth and throat: Reports as per HPI Breasts: absent: as per HPI, gynecomastia Cardiovascular: Reports claudication, Reports decreased exercise tolerance, Reports dyspnea on exertion, Reports edema, Reports irregular heart beat, Reports leg edema, Reports orthopnea, Reports paroxysmal nocturnal dyspnea, Reports rapid heart beat Respiratory: Reports cough, Reports dyspnea, Reports wheezing Gastrointestinal: Reports as per HPI Genitourinary: Reports as per HPI Musculoskeletal: Reports muscle weakness Musculoskeletal: bilateral: ankle swelling, absent: ankle pain, ankle stiffness Integumentary: Reports as per HPI Neurological: Reports weakness Psychiatric: Reports as per HPI Endocrine: Reports as per HPI, Reports fatigue Hematologic/Lymphatic: Reports as per HPI Allergic/Immunologic: Reports as per HPI Past Medical History Past Medical History: Coronary Artery Disease (CAD), Chest Pain / Angina, Heart Failure, COPD, Diabetes Mellitus, Hyperlipidemia, Myocardial Infarction (HI), Osteoarthritis (OA) Additional Past Medical History / Comment(s): Coronary artery disease with a previous bypass surgery, ischemic cardiomyopathy with ejection fraction of less than 20%,HOME 02 2-2.5 LITERS AT HS, COPD, obstructive sleep apnea with an AHI of 24 currently on auto CPAP unit, obesity, hypertension, AICD placement for ischemic cardiomyopathy, Cardiomyopathy, osteoarthritis, diabetes mellitus, hyperlipidemia, hypertension.past fx rt leg.tinnitus Last Myocardial Infarction Date:: UNSURE History of Any Multi-Drug Resistant Organisms: None Reported Past Surgical History: AICD, Coronary Bypass/CABG, Heart Catheterization, Ort hopedic Surgery Additional Past Surgical History / Comment(s): Pacemaker and AICD- 10/2013, CABG 1 vessel many yrs ago per pt, BILATERAL SHOULDER SURGERY , steel alcides in rt leg d/t fracture, bilat shoulders Past Anesthesia/Blood Transfusion Reactions: No Reported Reaction Type of Cardiac Device: Permanent Pacemaker, AICD Device Placement Date:: Smoking Status: Current every day smoker - Past Family History Mother History Unknown: Yes Father Family Medical History: Myocardial Infarction (HI) Additional Family Medical History / Comment(s): Father of a HI at the age of 56yrs. Brother(s) Family Medical History: Cancer Medications and Allergies Home Medications Medication Instructions Recorded Confirmed Type Lisinopril [Zestril] 2.5 mg PO DAILY #30 tab 09/16/17 10/19/18 Rx metFORMIN HCL [Glucophage] 500 mg PO BID #60 tab 12/24/17 10/19/18 Rx Albuterol Inhaler [Ventolin Hfa 2 puff INHALATION RT-Q4H PRN 10/19/18 10/19/18 History Inhaler] Albuterol Nebulized [Ventolin 2.5 mg INHALATION RT-QID PRN 10/19/18 10/19/18 History Nebulized] Apixaban [Eliquis] 5 mg PO BID 10/19/18 10/19/18 History Atorvastatin [Lipitor] 20 mg PO DAILY 10/19/18 10/19/18 History Furosemide [Lasix] 60 mg PO BID 10/19/18 10/19/18 History Metoprolol Succinate [Kapspargo 50 mg PO DAILY 10/19/18 10/19/18 History Sprinkle] Allergies Allergy/AdvReac Type Severity Reaction Status Date / Time Latex, Natural Rubber Allergy Rash/Hives Verified 10/19/18 15:53 levofloxacin [From Levaquin] Allergy Rash/Hives Verified 10/19/18 15:53 mold Allergy Rash/Hives Verified 10/19/18 15:53 prednisone Allergy Rash/Hives Verified 10/19/18 15:53 STEROIDS Allergy Rash/Hives Uncoded 10/19/18 11:00 Physical Exam Vitals: Vital Signs Temp Pulse Pulse Resp BP Pulse Ox 10/20/18 16:00 97.3 F L 84 18 108/65 98 10/20/18 13:10 84 10/20/18 12:58 80 10/20/18 12:00 97.6 F 82 18 108/67 97 10/20/18 08:19 84 10/20/18 08:11 80 97 10/20/18 08:00 97.9 F 78 20 100/54 99 10/20/18 04:00 80 18 113/58 97 10/20/18 03:46 80 18 10/20/18 00:27 83 18 109/59 99 10/20/18 00:00 83 18 10/19/18 23:00 80 18 109/61 99 10/19/18 21:32 81 10/19/18 21:20 81 10/19/18 20:00 97.9 F 80 18 120/58 100 Intake and Output 10/20/18 10/20/18 10/20/18 06:59 14:59 22:59 Intake Total 317.375 Output Total 5950 1200 1000 Balance -5632.625 -1200 -1000 Intake: Intake, IV Titration 317.375 Amount DOBUTamine DRIP 500 mg In 242.375 Dextrose/Water 1 250ml. bag @ 5 MCG/KG/MIN 16.62 mls/hr IV .Q15H3M BRO Rx# :[id number] Furosemide 100 mg In 75 Sodium Chloride 0.9% 90 ml @ 10 MG/HR 10 mls/hr IV .Q10H BRO Rx#: [id number] Output: Urine 5950 1200 1000 Other: Voiding Method Indwelling Catheter Indwelling Catheter Indwelling Catheter # Voids 1 Weight 110.8 kg Gen. appearance the patient is calm comfortable likely distress. Head exam was generally normal. There was no scleral icterus or corneal arcus. Mucous membranes were moist. Neck is short and supple and the patient has significant crowding of the posterior oropharynx. There is no goiter or neck masses. Lungs sounds are diminished and there is prolongation of expiratory phase of breathing and scattered expiratory wheezes without the lung his bilaterally. Few crackles also can be appreciated the lung bases. Cardiac exam revealed the PMI to be normally situated and sized. The rhythm was regular and no extrasystoles were noted during several minutes of auscultation. The first and second heart sounds were normal and physiologic splitting of the second heart sound was noted. There were no murmurs, rubs, clicks, or gallops. Abdominal exam revealed normal bowel sounds. The abdomen was soft, non-tender, and without masses, organomegaly, or appreciable enlargement of the abdominal aorta. Examination of the extremities revealed easily palpable radial, femoral and pedal pulses. There was no cyanosis, clubbing and there is +1 pitting edema Examination of the skin revealed no evidence of significant rashes, suspicious appearing nevi or other concerning lesions. Neurologically the patient is awake and alert and there is no focal neurological deficit. Results - Laboratory Findings CBC and BMP: 10/20/18 06:03 10/20/18 06:03 Abnormal lab findings: Abnormal Labs 10/19/18 10/19/18 10/20/18 16:28 20:26 06:01 RBC Hgb Hct MCH MCHC RDW Plt Count Lymphocytes # Sodium Chloride Glucose POC Glucose (mg/dL) 146 H 164 H 164 H Calcium Total Bilirubin ALT Total Protein Albumin 10/20/18 10/20/18 10/20/18 06:03 06:03 11:36 RBC 3.34 L Hgb 8.0 L Hct 27.3 L MCH 23.8 L MCHC 29.2 L RDW 18.5 H Plt Count 134 L Lymphocytes # 0.6 L Sodium 132 L Chloride 95 L Glucose 136 H POC Glucose (mg/dL) 141 H Calcium 8.1 L Total Bilirubin 2.6 H ALT 156 H Total Protein 5.2 L Albumin 3.1 L 10/20/18 16:24 RBC Hgb Hct MCH MCHC RDW Plt Count Lymphocytes # Sodium Chloride Glucose POC Glucose (mg/dL) 157 H Calcium Total Bilirubin ALT Total Protein Albumin - Diagnostic Findings Chest x-ray: image reviewed Assessment and Plan Plan: assessment 1 chronic congestion heart failure in the form of severe ischemic cardiomyopathy with an ejection fraction of less than 20% and +2-3 mitral regurgitation with frequent hospitalizations for decompensated heart failure. The patient is quite symptomatic from CHF and his being upgrade to a biventricular AICD. This has failed and the patient is coming in for a surgical placement of the ventricular leads. 2 acute on top of chronic dyspnea secondary to worsening heart failure. The patient is currently on the between infusion and addition to Lasix and his condition is being optimized and the patient is producing adequate amount of urine output. 3 coronary artery disease with previous bypass surgery 4 hypertension 5 hyperlipidemia 6 diabetes mellitus 7 COPD currently inactive in stable 8 obesity 9 obstructive sleep apnea with an AHI of 24 currently on no treatment as the patient was unable to tolerate his treatment in the past 10 diabetic peripheral neuropathy 11 AICD placement for ischemic cardiomyopathy 12 osteoarthritis 13 anemia of chronic disease ASHOK The patient will be undergoing a bilateral replacement by cardiothoracic surgery. Meanwhile, we'll optimize the patient's CHF. Continue dobutamine drip. Continue diuretics. Continue anticoagulation. Entresto is added to her regimen to optimize the cardiac status. Continue Lasix. Continue Aldactone.monitor the electrolytes. Monitor fluid balance.we'll continue to follow
[2018-10-20] MEDS: diphenhydrAMINE 2% CREAM 28.4 GM TUBE TOPICAL SCH (19:48)
[2018-10-20 20:37] LABS: Glucose,Whole Blood 176 mg/dL (75-99)
[2018-10-21] MEDS: IPRATROPIUM-ALBUTEROL 3 ML NEB INHALATION SCH ×5 (03:58→20:41)
[2018-10-21] MEDS: HYDROcodone/APAP 5-325MG 1 EACH TAB PO PRN ×5 (04:21→21:07)
[2018-10-21 05:57] LABS: Glucose,Whole Blood 133 mg/dL (75-99)
[2018-10-21] MEDS: INSULIN ASPART (NovoLOG) 100 UNIT/ML VIAL SQ SCH ×4 (06:25→21:06)
[2018-10-21 07:02] LABS: ALT 116 U/L (21-72); AST 40 U/L (17-59); Albumin 3.3 g/dL (3.5-5.0); Alkaline Phosphatase 130 U/L (38-126); Anion Gap 7 mmol/L; Anisocytosis Slight; Bilirubin, Delta 0.7 mg/dL (0.0-0.2); Bilirubin,Unconjugated 1.4 mg/dL (0.0-1.1); Blood Urea Nitrogen 17 mg/dL (9-20); Calcium 8.3 mg/dL (8.4-10.2); Carbon Dioxide 29 mmol/L (22-30); Chloride 96 mmol/L (98-107); Glucose 105 mg/dL (74-99); HCT 27.8 % (39.0-53.0); HGB 8.3 gm/dL (13.0-17.5); Hypochromasia Marked; MCH 24.6 pg (25.0-35.0); MCV 82.2 fL (80.0-100.0); Microcytosis Slight; Platelet Count 108 k/uL (150-450); Poikilocytosis Slight; Potassium 3.9 mmol/L (3.5-5.1); RBC 3.38 m/uL (4.30-5.90); RDW 18.5 % (11.5-15.5); Sodium 132 mmol/L (137-145); Total Bilirubin 2.1 mg/dL (0.2-1.3); Total Protein 5.4 g/dL (6.3-8.2); WBC 7.6 k/uL (3.8-10.6)
--- NOTE | 2018-10-21 07:12 | XR ---
EXAMINATION TYPE: XR chest 1V portable DATE OF EXAM: 10/21/2018 HISTORY: heart failure. REFERENCE: Previous study dated 10/20/2018. FINDINGS: There is a bipolar pacemaker place on the left. There has been a midline sternotomy. There is multichamber cardiac enlargement. There is atelectatic change present at the right lung base . Lungs otherwise clear. Pleural spaces are clear. IMPRESSION: 1. CARDIOMEGALY. 2. RIGHT BASILAR ATELECTASIS.
[2018-10-21] MEDS: DOBUTamine DRIP 500 MG in DEXTROSE/WATER 1 250ML.BAG IV SCH (08:55)
[2018-10-21] MEDS: TAMSULOSIN 0.4 MG CAP.ER.24H PO SCH (09:09)
[2018-10-21] MEDS: POTASSIUM CHLORIDE ER 20 MEQ TAB.ER PO SCH (09:09)
[2018-10-21] MEDS: SPIRONOLACTONE 25 MG TAB PO SCH (09:09)
[2018-10-21] MEDS: SACUBITRIL/VALSARTAN 24 MG-26 MG TABLET PO SCH ×2 (09:09→21:07)
[2018-10-21] MEDS: FUROSEMIDE 80 MG TAB PO SCH ×2 (09:09→16:55)
[2018-10-21] MEDS: ATORVASTATIN 20 MG TAB PO SCH (09:09)
[2018-10-21] MEDS: SYMBICORT 160-4.5 MCG INHALER INHALATION SCH ×2 (09:16→20:41)
--- NOTE | 2018-10-21 09:28 | P.PN ---
Subjective Patient is sitting comfortably in bed. He was sitting in the chair without any oxygen. He looks quite comfortable. No chest discomfort no dizziness no lightheadedness or palpitations He has no JVD or hepatojugular reflux He does have bilateral lower extremity edema at this time That sounds are reduced bilaterally with scattered rhonchi but no crackles Systolic murmur, pansystolic over the apex, soft Abdomen soft nontender Blood pressure 121/54 mmHg respirations 18-20, pulse rate 80, afebrile Left pectoral area no hematoma no soakage Impression Severe ischemic cardio myopathy with LV enlargement and a central 2+ MR Class III unstable heart failure, improving on dobutamine and Lasix and spironolactone Persistent atrial fibrillation I stopped his beta blockers temporarily while he is on dobutamine Today he will start ENTRESTO and hopefully can tolerate this His blood pressures in the normal range I'm giving him Lovenox 80 mg twice daily but we will hold Lovenox on Tuesday in preparation for thoracoscopic LV lead placement on Tuesday by Dr. Hernández Labs are reviewed Hemoglobin 8.3, sodium 132, potassium 3.9, BUN improving, 17 Creatinine 0.9 Magnesium 2.3 Liver functions improving Medications reviewed Continue dobutamine 2.5 mics Lovenox 80 mg every today No Lovenox on Tuesday Continue by mouth Lasix 80 mg twice daily till tomorrow Oral magnesium and potassium supplementation Continue spironolactone After the procedure beta blockers and be reintroduced A. fib management at a later date ELIQUIS will be restarted after the procedure Objective - Vital Signs Vital signs: Vital Signs Temp 98.1 F 10/21/18 07:00 Pulse 78 10/21/18 09:18 Resp 20 10/21/18 07:00 BP 121/54 10/21/18 07:00 Pulse Ox 94 L 10/21/18 09:18 Intake & Output 10/20/18 10/21/18 10/21/18 18:59 06:59 18:59 Intake Total 222 240 Output Total 2200 1700 Balance -1977 -1699 240 Weight 110.8 kg 103.3 kg Intake: Oral 222 240 Output: Urine 2199 1700 Other: Voiding Method Indwelling Catheter Indwelling Catheter - Labs CBC & Chem 7: 10/21/18 05:42 10/21/18 05:42 Labs: Abnormal Lab Results - Last 24 Hours (Table) 10/20/18 10/20/18 10/20/18 Range/Units 11:36 16:24 20:37 RBC (4.30-5.90) m/uL Hgb (13.0-17.5) gm/dL Hct (39.0-53.0) % MCH (25.0-35.0) pg MCHC (31.0-37.0) g/dL RDW (11.5-15.5) % Plt Count (150-450) k/uL Sodium (137-145) mmol/L Chloride (98-107) mmol/L Glucose (74-99) mg/dL POC Glucose (mg/dL) 141 H 157 H 176 H (75-99) mg/dL Calcium (8.4-10.2) mg/dL Total Bilirubin (0.2-1.3) mg/dL Unconjugated Bilirubin (0.0-1.1) mg/dL Delta Bilirubin (0.0-0.2) mg/dL ALT (21-72) U/L Alkaline Phosphatase (38-126) U/L Total Protein (6.3-8.2) g/dL Albumin (3.5-5.0) g/dL 10/21/18 10/21/18 10/21/18 Range/Units 05:42 05:42 05:55 RBC 3.38 L (4.30-5.90) m/uL Hgb 8.3 L (13.0-17.5) gm/dL Hct 27.8 L (39.0-53.0) % MCH 24.6 L (25.0-35.0) pg MCHC 30.0 L (31.0-37.0) g/dL RDW 18.5 H (11.5-15.5) % Plt Count 108 L (150-450) k/uL Sodium 132 L (137-145) mmol/L Chloride 96 L (98-107) mmol/L Glucose 105 H (74-99) mg/dL POC Glucose (mg/dL) 133 H (75-99) mg/dL Calcium 8.3 L (8.4-10.2) mg/dL Total Bilirubin 2.1 H (0.2-1.3) mg/dL Unconjugated Bilirubin 1.4 H (0.0-1.1) mg/dL Delta Bilirubin 0.7 H (0.0-0.2) mg/dL ALT 116 H (21-72) U/L Alkaline Phosphatase 130 H (38-126) U/L Total Protein 5.4 L (6.3-8.2) g/dL Albumin 3.3 L (3.5-5.0) g/dL
--- NOTE | 2018-10-21 09:40 | P.PN ---
Subjective Progress Note Date: 10/21/18 Principal diagnosis: Severe ischemic cardiomyopathy, severe LV dysfunction with EF less than 20% status post ICD placement in 2014, permanent atrial fibrillation on chronic Eliquis for anticoagulation, coronary artery disease with myocardial infarction status post one-vessel CABG approximately 35 years ago, hypertension, hyperlipidemia, diabetes mellitus, COPD with frequent steroid use, obstructive sleep apnea without CPAP use, nightly home O2 dependent, current tobacco depen dence, family history of premature coronary artery disease. POD #2 failed attempt at ICD upgrade secondary to tortuous and unusual anatomy of the coronary sinus. The patient is currently sitting up to the bedside and she. He is in no acute distress. He reports that his shortness of breath has improved a lot since his admission to [facility]. He also reports that he has been on room air throughout the night and this morning. Currently his oxygen saturations are 96% on room air. +2 edema to his bilateral lower extremities, which the patient reports has improved. Dobutrex drip remains infusing at 2.5 mcg/kg/m. He is achieving 2000 mL on his incentive spirometry. Dr. Hernández evaluated the patient yesterday. Dr. Hernández spoke with the patient and the patient's brother regarding the risks and benefits of surgery. The patient wishes to proceed with left thoracoscopic with placement of left ventricular epicardial lead placement to be performed on 10/23/2018. Objective - Vital Signs Vital signs: Vital Signs Temp 98.2 F 10/20/18 20:00 Pulse 84 10/21/18 04:09 Resp 18 10/21/18 03:36 BP 116/58 10/21/18 03:35 Pulse Ox 99 10/21/18 04:08 Intake & Output 10/20/18 10/21/18 10/21/18 18:59 06:59 18:59 Intake Total 222 240 Output Total 2200 1700 Balance -1977 240 Weight 110.8 kg 103.3 kg Intake: Oral 222 240 Output: Urine 2199 1700 Other: Voiding Method Indwelling Catheter Indwelling Catheter - Constitutional General appearance: Present: cooperative, no acute distress, obese - Respiratory Details: Coarse lung sounds heard throughout, diminished to his bilateral bases. Respirations are symmetrical and nonlabored. Oxygen saturation are 96% on room air. He is achieving 2000 mL on his incentive spirometry. - Cardiovascular Details: Regular rhythm and rate. S1 and S2 present, negative for S3, gallop or murmur. Remote telemetry showing 100% paced rhythm heart rate 80. +2 pitting edema present to his bilateral lower extremities. - Gastrointestinal Gastrointestinal Comment(s): Abdomen is soft, nontender and nondistended. Active bowel sounds all 4 abdominal quadrants. No guarding or rigidity. No organomegaly. - Genitourinary Genitourinary Comment(s): Arteaga catheter for accurate I&O. Draining clear josie urine. 3900 mL output in the last 24 hours, 900 mL output in the last 8 hours. - Integumentary Integumentary Comment(s): Skin is warm and dry. No clubbing or cyanosis is present. Left chest incision covered with gauze dressing which is clean, dry and intact. - Neurologic Neurologic: Present: CNII-XII intact - Musculoskeletal Musculoskeletal: Present: gait normal, strength equal bilaterally - Psychiatric Psychiatric: Present: A&O x's 3, appropriate affect, intact judgment & insight - Allied health notes Allied health notes reviewed: nursing - Labs CBC & Chem 7: 10/21/18 05:42 10/21/18 05:42 Labs: Abnormal Lab Results - Last 24 Hours (Table) 10/20/18 10/20/18 10/20/18 Range/Units 11:36 16:24 20:37 RBC (4.30-5.90) m/uL Hgb (13.0-17.5) gm/dL Hct (39.0-53.0) % MCH (25.0-35.0) pg MCHC (31.0-37.0) g/dL RDW (11.5-15.5) % Plt Count (150-450) k/uL Sodium (137-145) mmol/L Chloride (98-107) mmol/L Glucose (74-99) mg/dL POC Glucose (mg/dL) 141 H 157 H 176 H (75-99) mg/dL Calcium (8.4-10.2) mg/dL Total Bilirubin (0.2-1.3) mg/dL Unconjugated Bilirubin (0.0-1.1) mg/dL Delta Bilirubin (0.0-0.2) mg/dL ALT (21-72) U/L Alkaline Phosphatase (38-126) U/L Total Protein (6.3-8.2) g/dL Albumin (3.5-5.0) g/dL 10/21/18 10/21/18 10/21/18 Range/Units 05:42 05:42 05:55 RBC 3.38 L (4.30-5.90) m/uL Hgb 8.3 L (13.0-17.5) gm/dL Hct 27.8 L (39.0-53.0) % MCH 24.6 L (25.0-35.0) pg MCHC 30.0 L (31.0-37.0) g/dL RDW 18.5 H (11.5-15.5) % Plt Count 108 L (150-450) k/uL Sodium 132 L (137-145) mmol/L Chloride 96 L (98-107) mmol/L Glucose 105 H (74-99) mg/dL POC Glucose (mg/dL) 133 H (75-99) mg/dL Calcium 8.3 L (8.4-10.2) mg/dL Total Bilirubin 2.1 H (0.2-1.3) mg/dL Unconjugated Bilirubin 1.4 H (0.0-1.1) mg/dL Delta Bilirubin 0.7 H (0.0-0.2) mg/dL ALT 116 H (21-72) U/L Alkaline Phosphatase 130 H (38-126) U/L Total Protein 5.4 L (6.3-8.2) g/dL Albumin 3.3 L (3.5-5.0) g/dL - Imaging and Cardiology Chest x-ray: report reviewed, image reviewed Assessment and Plan Assessment: 1. Severe ischemic cardiomyopathy, severe LV dysfunction, acute on chronic systolic heart failure, EF less than 20% status post ICD placement in 2013 2. Permanent atrial fibrillation on chronic Eliquis for anticoagulation 3. Coronary artery disease with myocardial infarction status post 1 vessel CABG approximately 35 years ago 4. Hypertension 5. Hyperlipidemia 6. Diabetes mellitus 7. COPD with frequent steroid use 8. Obstructive sleep apnea, no CPAP use 9. Nightly home O2 dependent 10. Current tobacco dependence 11. Family history of premature coronary artery disease Plan: 1. Continue to maximize medical therapy with Entresto, Lasix/Aldactone, dobutamine drip per cardiology. 2. Continue bronchodilators, Symbicort per pulmonology. Encourage incentive spirometry 10 times every hour while awake. The Patient needs aggressive pulmonary management. 3. Heart failure management including daily weights and accurate intake and output, Arteaga catheter for accurate I&O. 4. Will continue to monitor labs and x-rays. Electrolyte replacement per protocol. 5. DVT prophylaxis with Lovenox while off Eliquis. 6. The patient has been scheduled for a left thoracoscopic with placement of left ventricular epicardial lead with upgrade of dual-chamber pacemaker to biventricular pacemaker to be performed by Dr. Hernández on 10/23/2018. 7. More recommendations to follow based on patient's clinical course. Time with Patient: Greater than 30
[2018-10-21] MEDS: diphenhydrAMINE 2% CREAM 28.4 GM TUBE TOPICAL SCH ×2 (10:42→21:06)
[2018-10-21] MEDS: ENOXAPARIN 80 MG/0.8 ML SYRINGE SQ SCH ×2 (10:42→21:06)
[2018-10-21 11:22] LABS: Glucose,Whole Blood 153 mg/dL (75-99)
[2018-10-21] MEDS: MAGNESIUM OXIDE 400 MG TAB PO SCH (12:56)
--- NOTE | 2018-10-21 14:25 | P.PN ---
Subjective Progress Note Date: 10/21/18 Principal diagnosis: Acute on chronic systolic congestive heart failure 63-year-old male patient was transferred from [facility] for a CT surgery evaluation and the need for a surgical right right level was left ventricular lead placement per defensive secondary coach recommendation. This patient suffers from severe ischemic cardiomyopathy and the patient has severe LV f unction impairment with a +2-3 mitral regurgitation. The patient has permanent atrial fibrillation. The patient's 100% paced and the right ventricle. The patient was having recurrent bouts of congestive heart failure and during this most recent admission the patient developed CHF and required inotropes in the form of dobutamine and Lasix drip. Note that the patient also has multiple other medical problems including coronary artery disease, previous bypass surgery, ischemic cardiomyopathy with an ejection fraction of less than 20%, chronic hypoxic respiratory failure and the patient is on oxygen at 2 L per minute nasal cannula, COPD, obstructive sleep apnea with an AHI of 24 and the patient is unable to tolerate CPAP therapy and he has hypertension, hyperlipidemia and degenerative arthritis. He has undergone previous multivessel bypass surgery many years back. In any rate, during this most rated admission, he was an attempt to upgrade the patient to a biventricular AICD and this was not successful. The patient will be having a surgical placement of the ventricular lead. Currently is transferred. The time of transfer, the patient was found to be short of breath. He was placed again on dobutamine and he was placed on Lasix. He diuresed more than 6 L. By the time of my arrival, the patient was already feeling better. He was not short of breath. Denied having any cough or sputum production. No pleurisy or hemoptysis. No altered mentation. No nausea. No vomiting. He is tolerating the dobutamine at 2.5 g per KG per minute. The tentative plan is to undergo the surgical intervention on Tuesday which is 2 days from now. No other significant events otherwise for now. The patient is seen today 10/21/2017 in follow-up on the selective care unit. He is awake and alert in no acute distress. He is currently sitting up in a chair at the bedside. He is breathing quite a bit easier today as compared to yesterday. He has had a total of 9 L urine output in the past 24 hours. He remains on dobutamine at 2.5 mcg/kg/m. He is on Lasix 80 mg twice a day. Chest x-ray shows cardiomegaly and some basilar atelectasis on the right. Otherwise clear. He is on 2 L/m per nasal cannula. White count 7.6. Hemoglobin 8.3. Creatinine 0.90. Objective - Vital Signs Vital signs: Vital Signs Temp 98.1 F 10/21/18 07:00 Pulse 84 10/21/18 12:47 Resp 20 10/21/18 11:36 BP 121/54 10/21/18 07:00 Pulse Ox 94 L 10/21/18 09:18 Intake & Output 10/20/18 10/21/18 10/21/18 18:59 06:59 18:59 Intake Total 222 240 Output Total 2200 1700 Balance -1977 -1699 240 Weight 110.8 kg 103.3 kg Intake: Oral 222 240 Output: Urine 21990 Other: Voiding Method Indwelling Catheter Indwelling Catheter Indwelling Catheter - Exam Gen. appearance the patient is calm comfortable likely distress. On 2 L nasal cannula. Head exam was generally normal. There was no scleral icterus or corneal arcus. Mucous membranes were moist. Neck is short and supple and the patient has significant crowding of the posterior oropharynx. There is no goiter or neck masses. Lungs sounds are diminished and there is prolongation of expiratory phase of breathing and scattered expiratory wheezes without the lung his bilaterally. Few crackles also can be appreciated the lung bases. Cardiac exam revealed the PMI to be normally situated and sized. The rhythm was regular and no extrasystoles were noted during several minutes of auscultation. The first and second heart sounds were normal and physiologic splitting of the second heart sound was noted. There were no murmurs, rubs, clicks, or gallops. Abdominal exam revealed normal bowel sounds. The abdomen was soft, non-tender, and without masses, organomegaly, or appreciable enlargement of the abdominal aorta. Examination of the extremities revealed easily palpable radial, femoral and pedal pulses. There was no cyanosis, clubbing and there is +1 pitting edema Examination of the skin revealed no evidence of significant rashes, suspicious appearing nevi or other concerning lesions. Neurologically the patient is awake and alert and there is no focal neurological deficit. - Labs CBC & Chem 7: 10/21/18 05:42 10/21/18 05:42 Labs: Abnormal Lab Results - Last 24 Hours (Table) 10/20/18 10/20/18 10/21/18 Range/Units 16:24 20:37 05:42 RBC (4.30-5.90) m/uL Hgb (13.0-17.5) gm/dL Hct (39.0-53.0) % MCH (25.0-35.0) pg MCHC (31.0-37.0) g/dL RDW (11.5-15.5) % Plt Count (150-450) k/uL Sodium 132 L (137-145) mmol/L Chloride 96 L (98-107) mmol/L Glucose 105 H (74-99) mg/dL POC Glucose (mg/dL) 157 H 176 H (75-99) mg/dL Calcium 8.3 L (8.4-10.2) mg/dL Total Bilirubin 2.1 H (0.2-1.3) mg/dL Unconjugated Bilirubin 1.4 H (0.0-1.1) mg/dL Delta Bilirubin 0.7 H (0.0-0.2) mg/dL ALT 116 H (21-72) U/L Alkaline Phosphatase 130 H (38-126) U/L Total Protein 5.4 L (6.3-8.2) g/dL Albumin 3.3 L (3.5-5.0) g/dL 10/21/18 10/21/18 10/21/18 Range/Units 05:42 05:55 11:20 RBC 3.38 L (4.30-5.90) m/uL Hgb 8.3 L (13.0-17.5) gm/dL Hct 27.8 L (39.0-53.0) % MCH 24.6 L (25.0-35.0) pg MCHC 30.0 L (31.0-37.0) g/dL RDW 18.5 H (11.5-15.5) % Plt Count 108 L (150-450) k/uL Sodium (137-145) mmol/L Chloride (98-107) mmol/L Glucose (74-99) mg/dL POC Glucose (mg/dL) 133 H 153 H (75-99) mg/dL Calcium (8.4-10.2) mg/dL Total Bilirubin (0.2-1.3) mg/dL Unconjugated Bilirubin (0.0-1.1) mg/dL Delta Bilirubin (0.0-0.2) mg/dL ALT (21-72) U/L Alkaline Phosphatase (38-126) U/L Total Protein (6.3-8.2) g/dL Albumin (3.5-5.0) g/dL Assessment and Plan Assessment: assessment 1 chronic congestion heart failure in the form of severe ischemic cardiomyopathy with an ejection fraction of less than 20% and +2-3 mitral regurgitation with frequent hospitalizations for decompensated heart failure. The patient is quite symptomatic from CHF and his being upgrade to a biventricular AICD. This has failed and the patient is coming in for a surgical placement of the ventricular leads. 2 acute on top of chronic dyspnea secondary to worsening heart failure. The patient is currently on the between infusion and addition to Lasix and his condition is being optimized and the patient is producing adequate amount of urine output. 3 coronary artery disease with previous bypass surgery 4 hypertension 5 hyperlipidemia 6 diabetes mellitus 7 COPD currently inactive in stable 8 obesity 9 obstructive sleep apnea with an AHI of 24 currently on no treatment as the patient was unable to tolerate his treatment in the past 10 diabetic peripheral neuropathy 11 AICD placement for ischemic cardiomyopathy 12 osteoarthritis 13 anemia of chronic disease Plan: The patient was seen and evaluated by Dr. Iraheta. He has been diuresing very well. He is breathing easier today as compared to yesterday. He remains on a dobutamine drip. He remains on oral Lasix. We will continue to follow make further recommendations based on his clinical status. The plan is for an LV lead to be placed by CT surgery on Tuesday. I, the cosigning physician, performed a history & physical examination of the patient. Lungs sounds with faint bilateral end expiratory wheeze, crackles in the right base. Maintaining good O2 saturations in the 90s on 2 L/m per nasal cannula. I discussed the assessment and plan of care with my nurse practitioner, Narcisa Graham. I attest to the above note as dictated by her.
[2018-10-21 16:34] LABS: Glucose,Whole Blood 107 mg/dL (75-99)
--- NOTE | 2018-10-21 16:44 | P.PN ---
Subjective 63-year-old pleasant gentleman with history of COPD heart failure ejection fraction of less than 20% with an ACT was admitted to [facility] 2 days ago with shortness of breath was treated for heart failure as well as COPD patient became hypovolemic went into renal failure Lasix was held which led to have hepatic congestion heart failure exacerbation with subsequently improved with the dobutamine drip. Patient was also hyponatremic initial hypervolemic hyponatremia improved with IV Lasix. Patient is presently on dobutamine drip patient was transferred here to this hospital for conversion of AICD to biventricular ICD, unable to undergo this procedure because nitrator operator was not able to access coronary sinus and the cardiothoracic was surgery was consulted, presently his heart failure is being optimized. His PERRLA and 60 twice a day of Lasix serum sodium of 125. Patient also is feeling much better not on any IV Lasix for steroids at this time. 10/21/2018 Patient is still complaining of from Little chest pain, however is improving. Patient denies dyspnea or coughing. He follow-up with Dr. Angulo as an outpatient. He is on home oxygen of 2-3 L/m. Vitals are stable, and his labs reviewed. Hemoglobin 8.3. Mildly elevated liver enzymes, sodium 132, creatinine 0.9. Patient continue on dobutamine drip and diuretic of Lasix 80 mg by mouth twice a day. Lovenox has been provided today. Entresto is also has been added by cardiology team. Patient is scheduled for dual-chamber pacemaker to a prograding biventricular pacemaker to biventricular pacemaker on 10/23/2018 Objective - Vital Signs Vital signs: Vital Signs Temp 97.7 F 10/21/18 12:30 Pulse 80 10/21/18 16:34 Resp 18 10/21/18 12:30 BP 100/54 10/21/18 12:30 Pulse Ox 100 10/21/18 12:30 Intake & Output 10/20/18 10/21/18 10/21/18 18:59 06:59 18:59 Intake Total 222 240 Output Total 2200 1700 1200 Balance -1977 -0 Weight 110.8 kg 103.3 kg Intake: Oral 222 240 Output: Urine 2200 1700 1200 Other: Voiding Method Indwelling Catheter Indwelling Catheter Indwelling Catheter - Exam GENERAL: The patient is alert and oriented x3, not in any acute distress. Well developed, well nourished. HEENT: Pupils are round and equally reacting to light. EOMI. No scleral icterus. No conjunctival pallor. Normocephalic, atraumatic. No pharyngeal erythema. No thyromegaly. CARDIOVASCULAR: S1 and S2 present. No murmurs, rubs, or gallops. Delayed appears to have mildly elevated JVD PULMONARY: Chest is clear to auscultation, no wheezing or crackles. ABDOMEN: Soft, nontender, nondistended, normoactive bowel sounds. No palpable organomegaly. MUSCULOSKELETAL: No joint swelling or deformity. EXTREMITIES: No cyanosis, clubbing, or pedal edema. NEUROLOGICAL: Gross neurological examination did not reveal any focal deficits. SKIN: No rashes. - Labs CBC & Chem 7: 10/21/18 05:42 10/21/18 05:42 Labs: Abnormal Lab Results - Last 24 Hours (Table) 10/20/18 10/21/18 10/21/18 Range/Units 20:37 05:42 05:42 RBC 3.38 L (4.30-5.90) m/uL Hgb 8.3 L (13.0-17.5) gm/dL Hct 27.8 L (39.0-53.0) % MCH 24.6 L (25.0-35.0) pg MCHC 30.0 L (31.0-37.0) g/dL RDW 18.5 H (11.5-15.5) % Plt Count 108 L (150-450) k/uL Sodium 132 L (137-145) mmol/L Chloride 96 L (98-107) mmol/L Glucose 105 H (74-99) mg/dL POC Glucose (mg/dL) 176 H (75-99) mg/dL Calcium 8.3 L (8.4-10.2) mg/dL Total Bilirubin 2.1 H (0.2-1.3) mg/dL Unconjugated Bilirubin 1.4 H (0.0-1.1) mg/dL Delta Bilirubin 0.7 H (0.0-0.2) mg/dL ALT 116 H (21-72) U/L Alkaline Phosphatase 130 H (38-126) U/L Total Protein 5.4 L (6.3-8.2) g/dL Albumin 3.3 L (3.5-5.0) g/dL 10/21/18 10/21/18 10/21/18 Range/Units 05:55 11:20 16:32 RBC (4.30-5.90) m/uL Hgb (13.0-17.5) gm/dL Hct (39.0-53.0) % MCH (25.0-35.0) pg MCHC (31.0-37.0) g/dL RDW (11.5-15.5) % Plt Count (150-450) k/uL Sodium (137-145) mmol/L Chloride (98-107) mmol/L Glucose (74-99) mg/dL POC Glucose (mg/dL) 133 H 153 H 107 H (75-99) mg/dL Calcium (8.4-10.2) mg/dL Total Bilirubin (0.2-1.3) mg/dL Unconjugated Bilirubin (0.0-1.1) mg/dL Delta Bilirubin (0.0-0.2) mg/dL ALT (21-72) U/L Alkaline Phosphatase (38-126) U/L Total Protein (6.3-8.2) g/dL Albumin (3.5-5.0) g/dL Assessment and Plan Assessment: Assessment and plan -Congestive heart failure chronic systolic dysfunction with mild acute e xacerbation presently, continue with present medications including dobutamine as recommended by cardiology patient will undergo biventricular ICD placement by cardiothoracic surgery although not emergent at this time -Mitral regurgitation -COPD without any acute exacerbation -Chronic atrial fibrillation presently rate controlled continue with anticoagulation -COPD without any acute exacerbation -Hypertension -Hyperlipidemia -Hyponatremia hypervolemic hyponatremia expected to improve with treatment of heart failure
[2018-10-21 21:03] LABS: Glucose,Whole Blood 139 mg/dL (75-99)
[2018-10-22] MEDS: HYDROcodone/APAP 5-325MG 1 EACH TAB PO PRN ×5 (01:38→22:15)
[2018-10-22 06:32] LABS: Glucose,Whole Blood 142 mg/dL (75-99)
[2018-10-22 06:56] LABS: Anisocytosis Slight; Basophils % (A) 0 %; Eosinophils # (A) 0.2 k/uL (0-0.7); Eosinophils % (A) 3 %; HCT 26.5 % (39.0-53.0); HGB 7.9 gm/dL (13.0-17.5); Hypochromasia Marked; Lymphocytes # (A) 0.9 k/uL (1.0-4.8); Lymphocytes % (A) 15 %; MCH 24.6 pg (25.0-35.0); MCHC 29.9 g/dL (31.0-37.0); MCV 82.1 fL (80.0-100.0); Mean Platelet Volume 7.7; Microcytosis Slight; Monocytes # (A) 0.5 k/uL (0-1.0); Monocytes % (A) 7 %; Neutrophils # (A) 4.6 k/uL (1.3-7.7); Neutrophils % (A) 73 %; Platelet Count 116 k/uL (150-450); Poikilocytosis Slight; RBC 3.23 m/uL (4.30-5.90); RDW 18.6 % (11.5-15.5); WBC 6.3 k/uL (3.8-10.6)
[2018-10-22 07:00] LABS: ALT 80 U/L (21-72); AST 35 U/L (17-59); Albumin 2.7 g/dL (3.5-5.0); Alkaline Phosphatase 115 U/L (38-126); Anion Gap 5 mmol/L; Blood Urea Nitrogen 15 mg/dL (9-20); Calcium 8.1 mg/dL (8.4-10.2); Carbon Dioxide 28 mmol/L (22-30); Chloride 100 mmol/L (98-107); Glucose 120 mg/dL (74-99); Potassium 4.1 mmol/L (3.5-5.1); Sodium 133 mmol/L (137-145); Total Bilirubin 1.9 mg/dL (0.2-1.3); Total Protein 4.7 g/dL (6.3-8.2)
[2018-10-22] MEDS: INSULIN ASPART (NovoLOG) 100 UNIT/ML VIAL SQ SCH ×4 (07:22→22:16)
--- NOTE | 2018-10-22 08:15 | P.PN ---
Subjective Principal diagnosis: Patient is sitting comfortably at the edge of the bed. He is also able to lie flat in bed. No JVD no hepatojugular reflux Lower extremity edema is improving significantly Over the last 24 hours he put out greater than 2400 mL of urine on by mouth Lasix 80 mg twice daily and low dose dobutamine of 2.5 mics. Yesterday ENTRESTO was initiated and he seems to be tolerating it fairly well Blood pressure 109/56 and 104/56 and 04/19/2002, pulse rate in the 80s Breath sounds are reduced bilaterally but there are no crackles very occasional, scattered rhonchi Heart sounds S1 and S2 are normal with soft systolic murmur at the apex Abdomen soft nontender Extremities warm lower extremity edema is improving Impression Severe ischemic cardio myopathy Pacemaker dependent with 100% RV pacing Class III unstable CHF, ENTRESTO initiated, seems to be unloading the left ventricle quite well with continued improvement in diuresis and organ perfusion Steady improvement in clinical status with improvement in BUN and creatinine, improvement in AST and ALT 2+ mitral regurgitation Persistent atrial fibrillation Labs reviewed white count 6.3, hemoglobin 7.9, reticulocyte count 116,000 patient was on Lovenox because of DVT prophylaxis as well as persistent atrial fibrillation for stroke prophylaxis since apixaban was discontinued prior to surgery Sodium 133, potassium 4.1, BUN 15, creatinine 0.8, AST 35 and ALT 80 Suggest Patient is awaiting thoracoscopic implantation of an LV lead for biventricular pacing tomorrow no more Lovenox Repeat CBC tomorrow and hopefully the platelets will improve Hemoglobin of 8.0 noted, hemoglobin has been hovering around 8.0 Reduce Lasix to 80 mg in the morning and 40 mg in the afternoon Continue ENTRESTO Continue IV dobutamine and I spoke to the CT surgeon as practitioner. He will stop dobutamine tomorrow at about 11 AM No IV Lasix Objective - Vital Signs Vital signs: Vital Signs Temp 98.3 F 10/21/18 20:00 Pulse 80 10/22/18 04:00 Resp 18 10/22/18 04:00 BP 99/52 10/22/18 04:00 Pulse Ox 96 10/22/18 04:00 Intake & Output 10/21/18 10/22/18 10/22/18 18:59 06:59 18:59 Intake Total 600 360 Output Total 1200 1250 Balance -600 -890 Weight 103.5 kg Intake: Oral 600 360 Output: Urine 1200 1250 Other: Voiding Method Indwelling Catheter Indwelling Catheter - Labs CBC & Chem 7: 10/22/18 05:36 10/22/18 05:36 Labs: Abnormal Lab Results - Last 24 Hours (Table) 10/21/18 10/21/18 10/21/18 Range/Units 11:20 16:32 21:01 RBC (4.30-5.90) m/uL Hgb (13.0-17.5) gm/dL Hct (39.0-53.0) % MCH (25.0-35.0) pg MCHC (31.0-37.0) g/dL RDW (11.5-15.5) % Plt Count (150-450) k/uL Lymphocytes # (1.0-4.8) k/uL Sodium (137-145) mmol/L Glucose (74-99) mg/dL POC Glucose (mg/dL) 153 H 107 H 139 H (75-99) mg/dL Calcium (8.4-10.2) mg/dL Total Bilirubin (0.2-1.3) mg/dL ALT (21-72) U/L Total Protein (6.3-8.2) g/dL Albumin (3.5-5.0) g/dL 10/22/18 10/22/18 10/22/18 Range/Units 05:36 05:36 06:26 RBC 3.23 L (4.30-5.90) m/uL Hgb 7.9 L (13.0-17.5) gm/dL Hct 26.5 L (39.0-53.0) % MCH 24.6 L (25.0-35.0) pg MCHC 29.9 L (31.0-37.0) g/dL RDW 18.6 H (11.5-15.5) % Plt Count 116 L (150-450) k/uL Lymphocytes # 0.9 L (1.0-4.8) k/uL Sodium 133 L (137-145) mmol/L Glucose 120 H (74-99) mg/dL POC Glucose (mg/dL) 142 H (75-99) mg/dL Calcium 8.1 L (8.4-10.2) mg/dL Total Bilirubin 1.9 H (0.2-1.3) mg/dL ALT 80 H (21-72) U/L Total Protein 4.7 L (6.3-8.2) g/dL Albumin 2.7 L (3.5-5.0) g/dL
[2018-10-22] MEDS ORDERED: SODIUM CHLORIDE 0.9% 500 ML 250 ML IV ONE (09:15)
[2018-10-22] MEDS: IPRATROPIUM-ALBUTEROL 3 ML NEB INHALATION SCH ×4 (09:38→21:07)
[2018-10-22] MEDS: SYMBICORT 160-4.5 MCG INHALER INHALATION SCH ×2 (09:38→21:07)
[2018-10-22] MEDS: FUROSEMIDE 80 MG TAB PO SCH (10:38)
[2018-10-22] MEDS: SPIRONOLACTONE 25 MG TAB PO SCH (10:39)
[2018-10-22] MEDS: SACUBITRIL/VALSARTAN 24 MG-26 MG TABLET PO SCH ×2 (10:39→18:58)
[2018-10-22] MEDS: POTASSIUM CHLORIDE ER 20 MEQ TAB.ER PO SCH (10:44)
[2018-10-22] MEDS: ATORVASTATIN 20 MG TAB PO SCH (10:44)
--- NOTE | 2018-10-22 10:51 | P.PN ---
Subjective Progress Note Date: 10/22/18 Principal diagnosis: Severe ischemic cardiomyopathy, severe LV dysfunction with EF less than 20% status post ICD placement in 2014, permanent atrial fibrillation on chronic Eliquis for anticoagulation, coronary artery disease with myocardial infarction status post one-vessel CABG approximately 35 years ago, hypertension, hyperlipidemia, diabetes mellitus, COPD with frequent steroid use, obstructive sleep apnea without CPAP use, nightly home O2 dependent, current tobacco depen dence, family history of premature coronary artery disease, preoperative anemia and thrombocytopenia. . POD #3 failed attempt at ICD upgrade secondary to tortuous and unusual anatomy of the coronary sinus. The patient is currently sitting up to the bedside edge. He is in no acute distress. He currently denies any complaints of pain or shortness of breath.. He remains on room air with oxygen saturations 96%. +1 pitting edema to his bilateral lower extremities. Dobutrex drip remains infusing at 2.5 mcg/kg/m. He is achieving 2500 mL on his incentive spirometry. The patient is scheduled f or a left thoracoscopy with placement of left ventricular epicardial lead placement to be performed on 10/23/[address] Jm Hernández. Objective - Vital Signs Vital signs: Vital Signs Temp 97.4 F L 10/22/18 08:00 Pulse 80 10/22/18 08:00 Resp 18 10/22/18 08:00 BP 86/36 10/22/18 08:00 Pulse Ox 98 10/22/18 08:00 Intake & Output 10/21/18 10/22/18 10/22/18 18:59 06:59 18:59 Intake Total 600 360 Output Total 1200 1250 Balance -600 -890 Weight 103.5 kg Intake: Oral 600 360 Output: Urine 1200 1250 Other: Voiding Method Indwelling Catheter Indwelling Catheter - Constitutional General appearance: Present: cooperative, no acute distress, obese - Respiratory Details: Lung sounds with few scattered crackles to his bilateral bases. Respirations are symmetrical and nonlabored. Oxygen saturation are 96% on room air. He is achieving 2500 mL on his incentive spirometry. - Cardiovascular Details: Regular rhythm and rate. S1 and S2 present, negative for S3, gallop or murmur. Remote telemetry showing paced rhythm heart rate 80. +1 pitting edema doesn't to his bilateral lower extremities. - Gastrointestinal Gastrointestinal Comment(s): Abdomen is soft, nontender and nondistended. Active bowel sounds to all 4 abdominal quadrants. No guarding or rigidity. No organomegaly. - Genitourinary Genitourinary Comment(s): Arteaga catheter for accurate I&O. Draining clear yellow urine. 2450 mL output in the last 24 hours, 625 mL output in the last 8 hours. - Integumentary Integumentary Comment(s): Skin is warm and dry. No clubbing or cyanosis is present. Left upper anterior chest incision with gauze dressing clean, dry and intact. - Neurologic Neurologic: Present: CNII-XII intact - Musculoskeletal Musculoskeletal: Present: gait normal, strength equal bilaterally - Psychiatric Psychiatric: Present: A&O x's 3, appropriate affect, intact judgment & insight - Allied health notes Allied health notes reviewed: nursing - Labs CBC & Chem 7: 10/22/18 05:36 10/22/18 05:36 Labs: Abnormal Lab Results - Last 24 Hours (Table) 10/21/18 10/21/18 10/21/18 Range/Units 11:20 16:32 21:01 RBC (4.30-5.90) m/uL Hgb (13.0-17.5) gm/dL Hct (39.0-53.0) % MCH (25.0-35.0) pg MCHC (31.0-37.0) g/dL RDW (11.5-15.5) % Plt Count (150-450) k/uL Lymphocytes # (1.0-4.8) k/uL Sodium (137-145) mmol/L Glucose (74-99) mg/dL POC Glucose (mg/dL) 153 H 107 H 139 H (75-99) mg/dL Calcium (8.4-10.2) mg/dL Total Bilirubin (0.2-1.3) mg/dL ALT (21-72) U/L Total Protein (6.3-8.2) g/dL Albumin (3.5-5.0) g/dL 10/22/18 10/22/18 10/22/18 Range/Units 05:36 05:36 06:26 RBC 3.23 L (4.30-5.90) m/uL Hgb 7.9 L (13.0-17.5) gm/dL Hct 26.5 L (39.0-53.0) % MCH 24.6 L (25.0-35.0) pg MCHC 29.9 L (31.0-37.0) g/dL RDW 18.6 H (11.5-15.5) % Plt Count 116 L (150-450) k/uL Lymphocytes # 0.9 L (1.0-4.8) k/uL Sodium 133 L (137-145) mmol/L Glucose 120 H (74-99) mg/dL POC Glucose (mg/dL) 142 H (75-99) mg/dL Calcium 8.1 L (8.4-10.2) mg/dL Total Bilirubin 1.9 H (0.2-1.3) mg/dL ALT 80 H (21-72) U/L Total Protein 4.7 L (6.3-8.2) g/dL Albumin 2.7 L (3.5-5.0) g/dL Assessment and Plan Assessment: 1. Severe ischemic cardiomyopathy, severe LV dysfunction, acute on chronic systolic heart failure, EF less than 20% status post ICD placement in 2013 2. Permanent atrial fibrillation on chronic Eliquis for anticoagulation 3. Coronary artery disease with myocardial infarction status post 1 vessel CABG approximately 35 years ago 4. Hypertension 5. Hyperlipidemia 6. Diabetes mellitus 7. COPD with frequent steroid use 8. Obstructive sleep apnea, no CPAP use 9. Nightly home O2 dependent 10. Current tobacco dependence 11. Anemia with hemoglobin of 7.9. 12. Thrombocytopenia with a platelet count of 116. 13. Family history of premature coronary artery disease Plan: 1. Continue to maximize medical therapy with Entresto, Lasix/Aldactone, dobutamine drip per cardiology. 2. Continue bronchodilators, Symbicort per pulmonology. Encourage incentive spirometry 10 times every hour while awake. The Patient needs aggressive pulmonary management. 3. Heart failure management including daily weights and accurate intake and output, Arteaga catheter for accurate I&O. 4. Will continue to monitor labs and x-rays. Electrolyte replacement per protocol. 5. DVT prophylaxis with knee-high AUBREE hose and sequential compression devices. Dr. Carroll discontinued the Lovenox due to the patient's platelet count. 6. The patient has been scheduled for a left thoracoscopic with placement of left ventricular epicardial lead with upgrade of dual-chamber pacemaker to biventricular pacemaker to be performed by Dr. Hernández on 10/23/2018. 7. The patient was started on iron 325 mg by mouth daily at lunch with vitamin C 500 mg by mouth daily lunch for a hemoglobin of 7.9. 8. Type and screen. Please have 5 units of platelets available preoperatively. 9. More recommendations to follow based on patient's clinical course. Time with Patient: Greater than 30
[2018-10-22 11:47] LABS: Glucose,Whole Blood 127 mg/dL (75-99)
[2018-10-22] MEDS: diphenhydrAMINE 2% CREAM 28.4 GM TUBE TOPICAL SCH (12:26)
[2018-10-22] MEDS: MAGNESIUM OXIDE 400 MG TAB PO SCH (12:26)
[2018-10-22] MEDS: ASCORBIC ACID 500 MG TAB PO SCH (12:26)
[2018-10-22] MEDS: FERROUS SULFATE 325 MG TAB PO SCH (12:26)
[2018-10-22] MEDS: TAMSULOSIN 0.4 MG CAP.ER.24H PO SCH (12:26)
--- NOTE | 2018-10-22 14:04 | P.PN ---
Subjective Progress Note Date: 10/22/18 63-year-old male patient was transferred from [facility] for a CT surgery evaluation and the need for a surgical right right level was left ventricular lead placement per dip painter recommendation. This patient suffers from severe ischemic cardiomyopathy and the patient has severe LV f unction impairment with a +2-3 mitral regurgitation. The patient has permanent atrial fibrillation. The patient's 100% paced and the right ventricle. The patient was having recurrent bouts of congestive heart failure and during this most recent admission the patient developed CHF and required inotropes in the form of dobutamine and Lasix drip. Note that the patient also has multiple other medical problems including coronary artery disease, previous bypass surgery, ischemic cardiomyopathy with an ejection fraction of less than 20%, chronic hypoxic respiratory failure and the patient is on oxygen at 2 L per minute nasal cannula, COPD, obstructive sleep apnea with an AHI of 24 and the patient is unable to tolerate CPAP therapy and he has hypertension, hyperlipidemia and degenerative arthritis. He has undergone previous multivessel bypass surgery many years back. In any rate, during this most rated admission, he was an attempt to upgrade the patient to a biventricular AICD and this was not successful. The patient will be having a surgical placement of the ventricular lead. Currently is transferred. The time of transfer, the patient was found to be short of breath. He was placed again on dobutamine and he was placed on Lasix. He diuresed more than 6 L. By the time of my arrival, the patient was already feeling better. He was not short of breath. Denied having any cough or sputum production. No pleurisy or hemoptysis. No altered mentation. No nausea. No vomiting. He is tolerating the dobutamine at 2.5 g per KG per minute. The tentative plan is to undergo the surgical intervention on Tuesday which is 2 days from now. No other significant events otherwise for now. The patient is seen today 10/21/2017 in follow-up on the selective care unit. He is awake and alert in no acute distress. He is currently sitting up in a chair at the bedside. He is breathing quite a bit easier today as compared to yesterday. He has had a total of 9 L urine output in the past 24 hours. He remains on dobutamine at 2.5 mcg/kg/m. He is on Lasix 80 mg twice a day. Chest x-ray shows cardiomegaly and some basilar atelectasis on the right. Otherwise clear. He is on 2 L/m per nasal cannula. White count 7.6. Hemoglobin 8.3. Creatinine 0.90. Today's evaluation 10/22/2018, I'm seeing this patient for a follow-up. He remains on dobutamine 2.5 g per KG per minute. He diuresed excessively and he became briefly hypotensive. He is currently on oral Lasix 80 mg in the morning and 40 mg in the evening. He is also on Aldactone 50 mg by mouth daily. He is on Entrsto at a dose of one tablet today. No chest pain. No major swelling lower extremities. Is able to lay down flat. The plan is to undergo a surgical insertion of a left anterior lead regarding his AICD tomorrow. No chest pain. His COPD is currently inactive and stable. Blood pressure improved and the patient is not having any dizziness or palpitation or any syncopal episodes. Tolerating his diet. Objective - Vital Signs Vital signs: Vital Signs Temp 97.4 F L 10/22/18 09:00 Pulse 84 10/22/18 13:03 Resp 18 10/22/18 12:00 BP 120/66 10/22/18 12:00 Pulse Ox 100 10/22/18 09:40 Intake & Output 10/21/18 10/22/18 10/22/18 18:59 06:59 18:59 Intake Total 600 360 220 Output Total 1200 1250 500 Balance -600 -890 -280 Weight 103.5 kg Intake: Oral 600 360 220 Output: Urine 1200 1250 500 Other: Voiding Method Indwelling Catheter Indwelling Catheter Indwelling Catheter - Exam Gen. appearance the patient is calm comfortable likely distress. On 2 L nasal cannula. Head exam was generally normal. There was no scleral icterus or corneal arcus. Mucous membranes were moist. Neck is short and supple and the patient has significant crowding of the posterior oropharynx. There is no goiter or neck masses. Lungs sounds are diminished and there is prolongation of expiratory phase of breathing and scattered expiratory wheezes without the lung his bilaterally. Few crackles also can be appreciated the lung bases. Cardiac exam revealed the PMI to be normally situated and sized. The rhythm was regular and no extrasystoles were noted during several minutes of auscultation. The first and second heart sounds were normal and physiologic splitting of the second heart sound was noted. There were no murmurs, rubs, clicks, or gallops. Abdominal exam revealed normal bowel sounds. The abdomen was soft, non-tender, and without masses, organomegaly, or appreciable enlargement of the abdominal aorta. Examination of the extremities revealed easily palpable radial, femoral and pedal pulses. There was no cyanosis, clubbing and there is +1 pitting edema Examination of the skin revealed no evidence of significant rashes, suspicious appearing nevi or other concerning lesions. Neurologically the patient is awake and alert and there is no focal neurological deficit. - Labs CBC & Chem 7: 10/22/18 05:36 10/22/18 05:36 Labs: Abnormal Lab Results - Last 24 Hours (Table) 10/21/18 10/21/18 10/22/18 Range/Units 16:32 21:01 05:36 RBC 3.23 L (4.30-5.90) m/uL Hgb 7.9 L (13.0-17.5) gm/dL Hct 26.5 L (39.0-53.0) % MCH 24.6 L (25.0-35.0) pg MCHC 29.9 L (31.0-37.0) g/dL RDW 18.6 H (11.5-15.5) % Plt Count 116 L (150-450) k/uL Lymphocytes # 0.9 L (1.0-4.8) k/uL Sodium (137-145) mmol/L Glucose (74-99) mg/dL POC Glucose (mg/dL) 107 H 139 H (75-99) mg/dL Calcium (8.4-10.2) mg/dL Total Bilirubin (0.2-1.3) mg/dL ALT (21-72) U/L Total Protein (6.3-8.2) g/dL Albumin (3.5-5.0) g/dL 10/22/18 10/22/18 10/22/18 Range/Units 05:36 06:26 11:45 RBC (4.30-5.90) m/uL Hgb (13.0-17.5) gm/dL Hct (39.0-53.0) % MCH (25.0-35.0) pg MCHC (31.0-37.0) g/dL RDW (11.5-15.5) % Plt Count (150-450) k/uL Lymphocytes # (1.0-4.8) k/uL Sodium 133 L (137-145) mmol/L Glucose 120 H (74-99) mg/dL POC Glucose (mg/dL) 142 H 127 H (75-99) mg/dL Calcium 8.1 L (8.4-10.2) mg/dL Total Bilirubin 1.9 H (0.2-1.3) mg/dL ALT 80 H (21-72) U/L Total Protein 4.7 L (6.3-8.2) g/dL Albumin 2.7 L (3.5-5.0) g/dL Assessment and Plan Plan: assessment 1 chronic congestion heart failure in the form of severe ischemic cardiomyopathy with an ejection fraction of less than 20% and +2-3 mitral regurgitation with frequent hospitalizations for decompensated heart failure. The patient is quite symptomatic from CHF and his being upgrade to a biventricular AICD. This has failed and the patient is coming in for a surgical placement of the ventricular leads. 2 acute on top of chronic dyspnea secondary to worsening heart failure. The patient is currently on the between infusion and addition to Lasix and his condition is being optimized and the patient is producing adequate amount of urine output. 3 coronary artery disease with previous bypass surgery 4 hypertension 5 hyperlipidemia 6 diabetes mellitus 7 COPD currently inactive in stable 8 obesity 9 obstructive sleep apnea with an AHI of 24 currently on no treatment as the patient was unable to tolerate his treatment in the past 10 diabetic peripheral neuropathy 11 AICD placement for ischemic cardiomyopathy 12 osteoarthritis 13 anemia of chronic disease Plan Continue current treatment. Hemodynamically stable. Pulmonary status is stable. Cardiac status is stable. Surgical insertion of the ventricular lead tomorrow.
--- NOTE | 2018-10-22 15:08 | P.PN ---
Subjective 63-year-old pleasant gentleman with history of COPD heart failure ejection fraction of less than 20% with an ACT was admitted to [facility] 2 days ago with shortness of breath was treated for heart failure as well as COPD patient became hypovolemic went into renal failure Lasix was held which led to have hepatic congestion heart failure exacerbation with subsequently improved with the dobutamine drip. Patient was also hyponatremic initial hypervolemic hyponatremia improved with IV Lasix. Patient is presently on dobutamine drip patient was transferred here to this hospital for conversion of AICD to biventricular ICD, unable to undergo this procedure because service center supervisor was not able to access coronary sinus and the cardiothoracic was surgery was consulted, presently his heart failure is being optimized. His PERRLA and 60 twice a day of Lasix serum sodium of 125. Patient also is feeling much better not on any IV Lasix for steroids at this time. 10/21/2018 Patient is still complaining of from Little chest pain, however is improving. Patient denies dyspnea or coughing. He follow-up with Dr. Angulo as an outpatient. He is on home oxygen of 2-3 L/m. Vitals are stable, and his labs reviewed. Hemoglobin 8.3. Mildly elevated liver enzymes, sodium 132, creatinine 0.9. Patient continue on dobutamine drip and diuretic of Lasix 80 mg by mouth twice a day. Lovenox has been provided today. Entresto is also has been added by cardiology team. Patient is scheduled for dual-chamber pacemaker to to biventricular pacemaker on 10/23/2018 10/22/2018 Patients with no chest pain. His blood pressure this morning was on the low side 84/69. Cardiology recommended to hold his blood pressure medication and stop dobutamine and give small dose of normal saline bolus. However his medication are continuing now as per cardiology recommendation. Patient is going for insertion of ventricular lead tomorrow Objective - Vital Signs Vital signs: Vital Signs Temp 97.4 F L 10/22/18 09:00 Pulse 84 10/22/18 13:03 Resp 18 10/22/18 12:00 BP 120/66 10/22/18 12:00 Pulse Ox 100 10/22/18 09:40 Intake & Output 10/21/18 10/22/18 10/22/18 18:59 06:59 18:59 Intake Total 600 360 460 Output Total 1200 1250 500 Balance -600 -890 -40 Weight 103.5 kg Intake: Oral 600 360 460 Output: Urine 1200 1250 500 Other: Voiding Method Indwelling Catheter Indwelling Catheter Indwelling Catheter - Exam GENERAL: The patient is alert and oriented x3, not in any acute distress. Well developed, well nourished. HEENT: Pupils are round and equally reacting to light. EOMI. No scleral icterus. No conjunctival pallor. Normocephalic, atraumatic. No pharyngeal erythema. No thyromegaly. CARDIOVASCULAR: S1 and S2 present. No murmurs, rubs, or gallops. Delayed appears to have mildly elevated JVD PULMONARY: Chest is clear to auscultation, no wheezing or crackles. ABDOMEN: Soft, nontender, nondistended, normoactive bowel sounds. No palpable organomegaly. MUSCULOSKELETAL: No joint swelling or deformity. EXTREMITIES: No cyanosis, clubbing, or pedal edema. NEUROLOGICAL: Gross neurological examination did not reveal any focal deficits. SKIN: No rashes. - Labs CBC & Chem 7: 10/22/18 05:36 10/22/18 05:36 Labs: Abnormal Lab Results - Last 24 Hours (Table) 10/21/18 10/21/18 10/22/18 Range/Units 16:32 21:01 05:36 RBC 3.23 L (4.30-5.90) m/uL Hgb 7.9 L (13.0-17.5) gm/dL Hct 26.5 L (39.0-53.0) % MCH 24.6 L (25.0-35.0) pg MCHC 29.9 L (31.0-37.0) g/dL RDW 18.6 H (11.5-15.5) % Plt Count 116 L (150-450) k/uL Lymphocytes # 0.9 L (1.0-4.8) k/uL Sodium (137-145) mmol/L Glucose (74-99) mg/dL POC Glucose (mg/dL) 107 H 139 H (75-99) mg/dL Calcium (8.4-10.2) mg/dL Total Bilirubin (0.2-1.3) mg/dL ALT (21-72) U/L Total Protein (6.3-8.2) g/dL Albumin (3.5-5.0) g/dL 10/22/18 10/22/18 10/22/18 Range/Units 05:36 06:26 11:45 RBC (4.30-5.90) m/uL Hgb (13.0-17.5) gm/dL Hct (39.0-53.0) % MCH (25.0-35.0) pg MCHC (31.0-37.0) g/dL RDW (11.5-15.5) % Plt Count (150-450) k/uL Lymphocytes # (1.0-4.8) k/uL Sodium 133 L (137-145) mmol/L Glucose 120 H (74-99) mg/dL POC Glucose (mg/dL) 142 H 127 H (75-99) mg/dL Calcium 8.1 L (8.4-10.2) mg/dL Total Bilirubin 1.9 H (0.2-1.3) mg/dL ALT 80 H (21-72) U/L Total Protein 4.7 L (6.3-8.2) g/dL Albumin 2.7 L (3.5-5.0) g/dL Assessment and Plan Assessment: Assessment and plan -Congestive heart failure chronic systolic dysfunction with mild acute exacerbation presently, continue with present medications including dobutamine as recommended by cardiology patient will undergo biventricular ICD placement by cardiothoracic surgery although not emergent at this time -Mitral regurgitation -COPD without any acute exacerbation -Chronic atrial fibrillation presently rate controlled continue with anticoagulation -COPD without any acute exacerbation -Hypertension -Hyperlipidemia -Hyponatremia hypervolemic hyponatremia expected to improve with treatment of heart failure
[2018-10-22] MEDS ORDERED: FUROSEMIDE 40 MG TAB PO SCH (16:00)
[2018-10-22 16:29] LABS: Glucose,Whole Blood 113 mg/dL (75-99)
[2018-10-22] MEDS: FUROSEMIDE 40 MG TAB PO SCH (17:49)
[2018-10-22 20:37] LABS: Glucose,Whole Blood 166 mg/dL (75-99)
[2018-10-23] MEDS: diphenhydrAMINE 2% CREAM 28.4 GM TUBE TOPICAL SCH ×2 (02:29→08:33)
[2018-10-23] MEDS: HYDROcodone/APAP 5-325MG 1 EACH TAB PO PRN ×2 (02:41→08:29)
[2018-10-23 06:16] LABS: Glucose,Whole Blood 97 mg/dL (75-99)
[2018-10-23] MEDS: IPRATROPIUM-ALBUTEROL 3 ML NEB INHALATION SCH ×4 (06:57→21:14)
[2018-10-23] MEDS ORDERED: MIDAZOLAM (PF) 2 MG/2 ML VIAL IV PRN (07:00)
[2018-10-23] MEDS ORDERED: fentaNYL (PF) 50 MCG/ML 2 ML AMP IV PRN (07:00)
[2018-10-23] MEDS ORDERED: LACTATED RINGERS 1,000 ML IV SCH (07:00)
[2018-10-23 07:08] LABS: Anisocytosis Slight; HCT 27.5 % (39.0-53.0); Hypochromasia Marked; MCH 24.1 pg (25.0-35.0); MCHC 29.1 g/dL (31.0-37.0); MCV 82.8 fL (80.0-100.0); Microcytosis Slight; Platelet Count 114 k/uL (150-450); Poikilocytosis Slight; RBC 3.32 m/uL (4.30-5.90); WBC 5.5 k/uL (3.8-10.6)
[2018-10-23] MEDS: SYMBICORT 160-4.5 MCG INHALER INHALATION SCH ×2 (07:08→21:14)
[2018-10-23 07:25] LABS: ALT 80 U/L (21-72); AST 43 U/L (17-59); Albumin 2.9 g/dL (3.5-5.0); Alkaline Phosphatase 98 U/L (38-126); Anion Gap 5 mmol/L; Blood Urea Nitrogen 12 mg/dL (9-20); Carbon Dioxide 25 mmol/L (22-30); Chloride 105 mmol/L (98-107); Glucose 82 mg/dL (74-99); Potassium 4.7 mmol/L (3.5-5.1); Sodium 135 mmol/L (137-145); Total Bilirubin 1.7 mg/dL (0.2-1.3); Total Protein 4.9 g/dL (6.3-8.2)
[2018-10-23] MEDS: SACUBITRIL/VALSARTAN 24 MG-26 MG TABLET PO SCH (08:25)
[2018-10-23] MEDS: POTASSIUM CHLORIDE ER 20 MEQ TAB.ER PO SCH (08:28)
[2018-10-23] MEDS: ONDANSETRON 4 MG/2 ML VIAL IVP ONE ×2 (08:28→13:07)
[2018-10-23] MEDS: ATORVASTATIN 20 MG TAB PO SCH (08:28)
[2018-10-23] MEDS: ASCORBIC ACID 500 MG TAB PO SCH (08:29)
[2018-10-23] MEDS: TAMSULOSIN 0.4 MG CAP.ER.24H PO SCH (08:29)
[2018-10-23] MEDS: FERROUS SULFATE 325 MG TAB PO SCH (08:30)
[2018-10-23] MEDS: SPIRONOLACTONE 25 MG TAB PO SCH (08:30)
[2018-10-23] MEDS: MAGNESIUM OXIDE 400 MG TAB PO SCH (08:30)
[2018-10-23] MEDS: DEXAMETHASONE SOD PHOSPHATE 10 MG/ML 1 ML VIAL IV ONE (08:30)
[2018-10-23] MEDS: FUROSEMIDE 80 MG TAB PO SCH (08:31)
[2018-10-23] MEDS ORDERED: FUROSEMIDE 40 MG TAB PO STA (08:34)
[2018-10-23] MEDS: INSULIN ASPART (NovoLOG) 100 UNIT/ML VIAL SQ SCH ×3 (08:53→18:13)
[2018-10-23 11:22] LABS: Glucose,Whole Blood 102 mg/dL (75-99)
[2018-10-23] MEDS ORDERED: ceFAZolin IN SWFI 2 GM/20 ML SYRINGE IVP ONE (11:30)
[2018-10-23] MEDS ORDERED: IV FLUID CONTINUATION 1,000 ML IV ONE (12:32)
--- NOTE | 2018-10-23 12:36 | P.PN ---
Subjective Progress Note Date: 10/23/18 Principal diagnosis: Acute on chronic systolic congestive heart failure 63-year-old male patient was transferred from [facility] for a CT surgery evaluation and the need for a surgical right right level was left ventricular lead placement per spinning room worker recommendation. This patient suffers from severe ischemic cardiomyopathy and the patient has severe LV f unction impairment with a +2-3 mitral regurgitation. The patient has permanent atrial fibrillation. The patient's 100% paced and the right ventricle. The patient was having recurrent bouts of congestive heart failure and during this most recent admission the patient developed CHF and required inotropes in the form of dobutamine and Lasix drip. Note that the patient also has multiple other medical problems including coronary artery disease, previous bypass surgery, ischemic cardiomyopathy with an ejection fraction of less than 20%, chronic hypoxic respiratory failure and the patient is on oxygen at 2 L per minute nasal cannula, COPD, obstructive sleep apnea with an AHI of 24 and the patient is unable to tolerate CPAP therapy and he has hypertension, hyperlipidemia and degenerative arthritis. He has undergone previous multivessel bypass surgery many years back. In any rate, during this most rated admission, he was an attempt to upgrade the patient to a biventricular AICD and this was not successful. The patient will be having a surgical placement of the ventricular lead. Currently is transferred. The time of transfer, the patient was found to be short of breath. He was placed again on dobutamine and he was placed on Lasix. He diuresed more than 6 L. By the time of my arrival, the patient was already feeling better. He was not short of breath. Denied having any cough or sputum production. No pleurisy or hemoptysis. No altered mentation. No nausea. No vomiting. He is tolerating the dobutamine at 2.5 g per KG per minute. The tentative plan is to undergo the surgical intervention on Tuesday which is 2 days from now. No other significant events otherwise for now. The patient is seen today 10/21/2018 in follow-up on the selective care unit. He is awake and alert in no acute distress. He is currently sitting up in a chair at the bedside. He is breathing quite a bit easier today as compared to yesterday. He has had a total of 9 L urine output in the past 24 hours. He remains on dobutamine at 2.5 mcg/kg/m. He is on Lasix 80 mg twice a day. Chest x-ray shows cardiomegaly and some basilar atelectasis on the right. Otherwise clear. He is on 2 L/m per nasal cannula. White count 7.6. Hemoglobin 8.3. Creatinine 0.90. Today's evaluation 10/22/2018, I'm seeing this patient for a follow-up. He remains on dobutamine 2.5 g per KG per minute. He diuresed excessively and he became briefly hypotensive. He is currently on oral Lasix 80 mg in the morning and 40 mg in the evening. He is also on Aldactone 50 mg by mouth daily. He is on Entrsto at a dose of one tablet today. No chest pain. No major swelling lower extremities. Is able to lay down flat. The plan is to undergo a surgical insertion of a left anterior lead regarding his AICD tomorrow. No chest pain. His COPD is currently inactive and stable. Blood pressure improved and the patient is not having any dizziness or palpitation or any syncopal episodes. Tolerating his diet. The patient is seen today 10/23/2017 in follow-up on the selective care unit. He is currently sitting up at the bedside. Awake and alert in no acute distress. He is breathing easier today as compared to yesterday. Continues to diurese well. In a negative 4 liter balance. Weight 103 kg. White count 5.5. Hemoglobin 8.0. Creatinine 0.74. The plan is for a left thoracoscopy with p lacement of the left ventricular epicardial lead today by Dr. Hernández. Objective - Vital Signs Vital signs: Vital Signs Temp 97.7 F 10/23/18 08:00 Pulse 58 L 10/23/18 10:40 Resp 18 10/23/18 08:00 BP 96/55 10/23/18 08:00 Pulse Ox 97 10/23/18 08:00 Intake & Output 10/22/18 10/23/18 10/23/18 18:59 06:59 18:59 Intake Total 820 0 Output Total 500 3650 1200 Balance 320 -3650 -1200 Weight 103.4 kg Intake: Oral 820 0 Output: Urine 500 3650 1200 Other: Voiding Method Indwelling Catheter Indwelling Catheter Indwelling Catheter # Voids 1 # Bowel Movements 1 - Exam Gen. appearance the patient is calm comfortable no acute distress. On 2 L nasal cannula. Head exam was generally normal. There was no scleral icterus or corneal arcus. Mucous membranes were moist. Neck is short and supple and the patient has significant crowding of the posterior oropharynx. There is no goiter or neck masses. Lungs sounds are diminished and there is prolongation of expiratory phase of breathing and scattered expiratory wheezes without the lung his bilaterally. Few crackles also can be appreciated the lung bases. Cardiac exam revealed the PMI to be normally situated and sized. The rhythm was regular and no extrasystoles were noted during several minutes of auscultation. The first and second heart sounds were normal and physiologic splitting of the second heart sound was noted. There were no murmurs, rubs, clicks, or gallops. Abdominal exam revealed normal bowel sounds. The abdomen was soft, non-tender, and without masses, organomegaly, or appreciable enlargement of the abdominal aorta. Examination of the extremities revealed easily palpable radial, femoral and pedal pulses. There was no cyanosis, clubbing and there is +1 pitting edema Examination of the skin revealed no evidence of significant rashes, suspicious appearing nevi or other concerning lesions. Neurologically the patient is awake and alert and there is no focal neurological deficit. - Labs CBC & Chem 7: 10/23/18 06:15 10/23/18 06:15 Labs: Abnormal Lab Results - Last 24 Hours (Table) 10/22/18 10/22/18 10/23/18 Range/Units 16:28 20:36 06:15 RBC 3.32 L (4.30-5.90) m/uL Hgb 8.0 L (13.0-17.5) gm/dL Hct 27.5 L (39.0-53.0) % MCH 24.1 L (25.0-35.0) pg MCHC 29.1 L (31.0-37.0) g/dL RDW 19.0 H (11.5-15.5) % Plt Count 114 L (150-450) k/uL Sodium (137-145) mmol/L POC Glucose (mg/dL) 113 H 166 H (75-99) mg/dL Total Bilirubin (0.2-1.3) mg/dL ALT (21-72) U/L Total Protein (6.3-8.2) g/dL Albumin (3.5-5.0) g/dL 10/23/18 10/23/18 Range/Units 06:15 11:19 RBC (4.30-5.90) m/uL Hgb (13.0-17.5) gm/dL Hct (39.0-53.0) % MCH (25.0-35.0) pg MCHC (31.0-37.0) g/dL RDW (11.5-15.5) % Plt Count (150-450) k/uL Sodium 135 L (137-145) mmol/L POC Glucose (mg/dL) 102 H (75-99) mg/dL Total Bilirubin 1.7 H (0.2-1.3) mg/dL ALT 80 H (21-72) U/L Total Protein 4.9 L (6.3-8.2) g/dL Albumin 2.9 L (3.5-5.0) g/dL Assessment and Plan Assessment: assessment 1 chronic congestion heart failure in the form of severe ischemic cardiomyopathy with an ejection fraction of less than 20% and +2-3 mitral regurgitation with frequent hospitalizations for decompensated heart failure. The patient is quite symptomatic from CHF and his being upgrade to a biventricular AICD. This has failed and the patient is coming in for a surgical placement of the ventricular leads. 2 acute on top of chronic dyspnea secondary to worsening heart failure. The patient is currently on the between infusion and addition to Lasix and his condition is being optimized and the patient is producing adequate amount of urine output. 3 coronary artery disease with previous bypass surgery 4 hypertension 5 hyperlipidemia 6 diabetes mellitus 7 COPD currently inactive in stable 8 obesity 9 obstructive sleep apnea with an AHI of 24 currently on no treatment as the patient was unable to tolerate his treatment in the past 10 diabetic peripheral neuropathy 11 AICD placement for ischemic cardiomyopathy 12 osteoarthritis 13 anemia of chronic disease Plan: The patient was seen and evaluated by Dr. Tompkins. He is breathing easier today as compared to yesterday. He remains on oral Lasix. He has been diuresing very well. The plan is for an left thoracoscopy LV lead placement today. We will continue to follow and make further recommendations based on his clinical status. I, the cosigning physician, performed a history & physical examination of the patient. Lungs sounds with faint bilateral end expiratory wheeze, crackles in the right base. Maintaining good O2 saturations in the 90s on 2 L/m per nasal cannula. I discussed the assessment and plan of care with my nurse silva wood, Narcisa Graham. I attest to the above note as dictated by her.
[2018-10-23] MEDS ORDERED: MIDAZOLAM 2 MG/2 ML VIAL IVP ONE ×2 (12:40→12:45)
[2018-10-23] MEDS ORDERED: fentaNYL (PF) 50 MCG/ML 2 ML AMP IVP ONE (12:42)
[2018-10-23] MEDS ORDERED: MIDAZOLAM 2 MG/2 ML VIAL ONE (13:22)
[2018-10-23] MEDS ORDERED: HYDROmorphone (PF) 1 MG/ML ONE (13:22)
[2018-10-23] MEDS ORDERED: NEOSTIGMINE 1 MG/ML 10 ML VIAL ONE (13:22)
[2018-10-23] MEDS ORDERED: fentaNYL (PF) 50 MCG/ML 2 ML AMP ONE (13:22)
[2018-10-23] MEDS ORDERED: WATER FOR INJECTION, STERILE 10 ML VIAL IV ONE (13:22)
[2018-10-23] MEDS ORDERED: ePHEDrine SULFATE/0.9% NACL/PF 50 MG/5 ML SYRINGE IV ONE (13:22)
[2018-10-23] MEDS ORDERED: SUCCINYLCHOLINE CHLORIDE 100 MG/5 ML SYR IV ONE (13:22)
[2018-10-23] MEDS ORDERED: PROPOFOL 10 MG/ML 20 ML VIAL IV ONE (13:22)
[2018-10-23] MEDS ORDERED: ROCURONIUM BROMIDE 10 MG/ML 10 ML VIAL IV ONE (13:22)
[2018-10-23] MEDS ORDERED: GLYCOPYRROLATE 0.2 MG/ML 2 ML VIAL ONE (13:22)
[2018-10-23] MEDS ORDERED: PHENYLEPHRINE-0.9% NACL SYG 1 MG/10 ML SYRINGE ONE (13:22)
[2018-10-23] MEDS ORDERED: ceFAZolin (PMX-bag) 2,000 MG in DEXTROSE/WATER 1 50ML.BAG IVPB ONE (13:30)
[2018-10-23] MEDS ORDERED: ROPIVACAINE 5 MG/ML 30 ML VIAL MISCELLANE ONE ×2 (14:01)
[2018-10-23] MEDS ORDERED: ceFAZolin 1,000 MG in SODIUM CHLORIDE 0.9% 1,000 ML IRRIGATION ONE (14:45)
--- NOTE | 2018-10-23 16:04 | XR ---
EXAMINATION TYPE: XR chest 1V portable DATE OF EXAM: 10/23/2018 COMPARISON: 10/23/2018 HISTORY: Postsurgical evaluation for heart failure TECHNIQUE: Single frontal view of the chest is obtained. FINDINGS: Multilead left-sided cardiac device is noted. Cardiomediastinal silhouette is again enlarg ed. No pulmonary vascular congestion, sizable pleural effusion or pneumothorax. The appearance of lef t axillary subcutaneous emphysema may be artifactual and related to skinfold. Osseous structures are grossly intact. Left-sided thoracostomy tube terminates along the left upper lung near the mediastina l border without residual pneumothorax. IMPRESSION: Interval insertion of a left-sided thoracostomy tube without residual pneumothorax. No p ulmonary vascular congestion or sequela of congestive heart failure.
[2018-10-23] MEDS: HYDROmorphone 1 MG/ML 1 ML SYRINGE IVP ONE ×2 (16:23→16:50)
[2018-10-23] MEDS ORDERED: LACTATED RINGERS 1,000 ML IV ONE (16:24)
[2018-10-23] MEDS ORDERED: BISACODYL 10 MG SUPP RECTAL PRN (17:39)
--- NOTE | 2018-10-23 18:07 | P.PN ---
Subjective Progress Note Date: 10/23/18 Hospital course: 63-year-old pleasant gentleman with history of COPD heart failure ejection fraction of less than 20% with an ACT was admitted to [facility] 2 days ago with shortness of breath was treated for heart failure as well as COPD patient became hypovolemic went into renal failure Lasix was held which led to have hepatic congestion heart failure exacerbation with subsequently improved w ith the dobutamine drip. Patient was also hyponatremic initial hypervolemic hyponatremia improved with IV Lasix. Patient is presently on dobutamine drip patient was transferred here to this hospital for conversion of AICD to biventricular ICD, unable to undergo this procedure because electrotherapist was not able to access coronary sinus and the cardiothoracic was surgery was consulted, presently his heart failure is being optimized. His PERRLA and 60 twice a day of Lasix serum sodium of 125. Patient also is feeling much better not on any IV Lasix for steroids at this time. 10/21/2018 Patient is still complaining of from Little chest pain, however is improving. Patient denies dyspnea or coughing. He follow-up with Dr. Angulo as an outpatient. He is on home oxygen of 2-3 L/m. Vitals are stable, and his labs reviewed. Hemoglobin 8.3. Mildly elevated liver enzymes, sodium 132, creatin ine 0.9. Patient continue on dobutamine drip and diuretic of Lasix 80 mg by mouth twice a day. Lovenox has been provided today. Entresto is also has been added by cardiology team. Patient is scheduled for dual-chamber pacemaker to to biventricular pacemaker on 10/23/2018 10/22/2018 Patients with no chest pain. His blood pressure this morning was on the low side 84/69. Cardiology recommended to hold his blood pressure medication and stop dobutamine and give small dose of normal saline bolus. However his medication are continuing now as per cardiology recommendation. Patient is going for insertion of ventricular lead tomorrow 10/23/2018 awaiting left thoracoscopy/left ventricular epicardial lead placement with cardiothoracic surgery. Diuresing well on oral Lasix with 24-hour I&O reflecting a negative fluid balance. Maintaining O2 sats of 90s on room air. IS up to 2500. Denies chest pain, palpitations. Afebrile, normal WBC. Sodium 135 Objective - Vital Signs Vital signs: Vital Signs Temp 97.0 F L 10/23/18 15:15 Pulse 80 10/23/18 17:15 Resp 20 10/23/18 17:15 BP 92/51 10/23/18 17:15 Pulse Ox 97 10/23/18 17:15 Intake & Output 10/22/18 10/23/18 10/23/18 18:59 06:59 18:59 Intake Total 820 871 Output Total 500 3650 1920 Balance 320 -3650 -1049 Weight 103.4 kg Intake: IV 871 Oral 820 0 Output: Urine 500 3650 1900 Estimated Blood Loss 20 Other: Voiding Method Indwelling Catheter Indwelling Catheter Indwelling Catheter # Voids 1 # Bowel Movements 1 - Exam GENERAL: The patient is sitting up in bed, alert and oriented x3, no acute distress. HEENT: Pupils are round and equally reacting to light. EOMI. No scleral icterus. No conjunctival pallor. Normocephalic, atraumatic. CARDIOVASCULAR: S1 and S2 present. No murmurs, rubs, or gallops. Delayed appears to have mildly elevated JVD PULMONARY: Bilateral bases diminished with Scattered expiratory wheezes, fine bi basilar crackles ABDOMEN: Soft, nontender, nondistended, normoactive bowel sounds. No palpable organomegaly. EXTREMITIES: No cyanosis, clubbing, positive pedal edema. NEUROLOGICAL: Gross neurological examination did not reveal any focal deficits. SKIN: No rashes. - Labs CBC & Chem 7: 10/23/18 06:15 10/23/18 06:15 Labs: Abnormal Lab Results - Last 24 Hours (Table) 10/22/18 10/23/18 10/23/18 Range/Units 20:36 06:15 06:15 RBC 3.32 L (4.30-5.90) m/uL Hgb 8.0 L (13.0-17.5) gm/dL Hct 27.5 L (39.0-53.0) % MCH 24.1 L (25.0-35.0) pg MCHC 29.1 L (31.0-37.0) g/dL RDW 19.0 H (11.5-15.5) % Plt Count 114 L (150-450) k/uL Sodium 135 L (137-145) mmol/L POC Glucose (mg/dL) 166 H (75-99) mg/dL Total Bilirubin 1.7 H (0.2-1.3) mg/dL ALT 80 H (21-72) U/L Total Protein 4.9 L (6.3-8.2) g/dL Albumin 2.9 L (3.5-5.0) g/dL 10/23/18 Range/Units 11:19 RBC (4.30-5.90) m/uL Hgb (13.0-17.5) gm/dL Hct (39.0-53.0) % MCH (25.0-35.0) pg MCHC (31.0-37.0) g/dL RDW (11.5-15.5) % Plt Count (150-450) k/uL Sodium (137-145) mmol/L POC Glucose (mg/dL) 102 H (75-99) mg/dL Total Bilirubin (0.2-1.3) mg/dL ALT (21-72) U/L Total Protein (6.3-8.2) g/dL Albumin (3.5-5.0) g/dL Assessment and Plan Assessment: -Congestive heart failure chronic systolic dysfunction with mild acute exacerbation presently, pending biventricular ICD placement by cardiothoracic surgery although not emergent at this time -Mitral regurgitation -COPD without any acute exacerbation -Chronic atrial fibrillation presently rate controlled continue with anticoagu lation -COPD without any acute exacerbation -Hypertension -Hyperlipidemia -Hyponatremia hypervolemic hyponatremia expected to improve with treatment of heart failure Plan: Continue on current medication regime ,monitoring and symptomatic treatment. DVT prophylaxis with sequentials and teds. Maintain strict I&O's as per CHF pathway. Continue on nebulized bronchodilators. Aggressive pulmonary to ileting. Close monitoring of electrolytes with repeat labs ordered for a.m. The impression and plan of care has been dictated as directed. : I performed a history and examination of this patient, discussed the same with the dictator. I agree with the dictator's note ,documented as a scribe. Any additional findings or plans will be noted.
[2018-10-23] MEDS: traMADol 50 MG TAB PO PRN (18:11)
--- NOTE | 2018-10-23 18:17 | XR ---
EXAMINATION: XR chest 2V DATE AND TIME: 10/23/2018 6:05 PM CLINICAL INDICATION: PHH; Postoperative left thoracoscopic surgery TECHNIQUE: 2 frontal views were obtained, AP portable upright patient positioning COMPARISON: 10/23/2018 at 3:45 PM, AP portable upright radiograph FINDINGS: Left chest tube. Cardiac pacemaker and EKG leads, sternal sutures and mediastinal clips. Right upper extremity PICC line tip superimposes over the distal SVC. No pneumothorax. Blunted right costophrenic angle is new since prior study, consistent with small rig ht pleural effusion. The pleural spaces are otherwise negative. The lungs are clear. The cardiac silhouette is moderately enlarged. The skeletal structures and soft tissues are negative for acute findings. IMPRESSION: Small right pleural effusion evident, apparently new since the prior study.
[2018-10-23] MEDS: ACETAMINOPHEN IV (For NPO) 1,000 MG in EMPTY BAG 1 BAG IVPB SCH (19:56)
[2018-10-23 21:10] LABS: Glucose,Whole Blood 111 mg/dL (75-99)
[2018-10-23] MEDS: HEPARIN SODIUM,PORCINE 5,000 UNIT/ML 1 ML VIAL SQ SCH (21:30)
[2018-10-23] MEDS: ceFAZolin IN SWFI 2 GM/20 ML SYRINGE IVP SCH (22:05)
[2018-10-24] MEDS: HEPARIN SODIUM,PORCINE 5,000 UNIT/ML 1 ML VIAL SQ SCH ×4 (00:30→23:20)
[2018-10-24] MEDS: traMADol 50 MG TAB PO PRN ×3 (01:29→19:00)
[2018-10-24] MEDS: ACETAMINOPHEN IV (For NPO) 1,000 MG in EMPTY BAG 1 BAG IVPB SCH ×3 (01:30→15:44)
[2018-10-24] MEDS: FUROSEMIDE 40 MG TAB PO SCH ×3 (01:32→18:43)
[2018-10-24] MEDS: INSULIN ASPART (NovoLOG) 100 UNIT/ML VIAL SQ SCH ×5 (01:33→21:25)
[2018-10-24] MEDS: diphenhydrAMINE 2% CREAM 28.4 GM TUBE TOPICAL SCH ×3 (01:33→21:28)
[2018-10-24 06:05] LABS: Glucose,Whole Blood 79 mg/dL (75-99)
[2018-10-24 06:52] LABS: Anisocytosis Slight; Basophils % (A) 0 %; Eosinophils # (A) 0.2 k/uL (0-0.7); Eosinophils % (A) 3 %; HCT 28.5 % (39.0-53.0); HGB 8.3 gm/dL (13.0-17.5); Hypochromasia Marked; Lymphocytes # (A) 0.6 k/uL (1.0-4.8); Lymphocytes % (A) 9 %; MCH 24.9 pg (25.0-35.0); MCHC 29.2 g/dL (31.0-37.0); MCV 85.2 fL (80.0-100.0); Mean Platelet Volume 8.7; Monocytes # (A) 0.4 k/uL (0-1.0); Monocytes % (A) 6 %; Neutrophils # (A) 5.3 k/uL (1.3-7.7); Neutrophils % (A) 80 %; Platelet Count 133 k/uL (150-450); Poikilocytosis Slight; RBC 3.34 m/uL (4.30-5.90); RDW 18.9 % (11.5-15.5); WBC 6.6 k/uL (3.8-10.6)
[2018-10-24] MEDS: ceFAZolin IN SWFI 2 GM/20 ML SYRINGE IVP SCH (06:59)
[2018-10-24 07:02] LABS: Anion Gap 6 mmol/L; Blood Urea Nitrogen 13 mg/dL (9-20); Carbon Dioxide 25 mmol/L (22-30); Chloride 102 mmol/L (98-107); Glucose 68 mg/dL (74-99); Sodium 133 mmol/L (137-145)
--- NOTE | 2018-10-24 08:00 | XR ---
EXAMINATION TYPE: XR chest 1V DATE OF EXAM: 10/24/2018 COMPARISON: 10/23/2018 HISTORY: SOB, Follow Up FINDINGS: Left-sided chest tube is unchanged in position. Subcutaneous air. No sizable pneumothorax identified. No change in bibasilar opacities. Stable appearance of the cardio-mediastinal structures at this time. Pleural effusion unchanged. IMPRESSION: 1. Stable portable chest. Clinical correlation and follow up until resolution is recommended.
--- NOTE | 2018-10-24 08:47 | P.PN ---
Subjective Progress Note Date: 10/24/18 Principal diagnosis: Severe ischemic cardiomyopathy, severe LV dysfunction with EF less than 20% status post ICD placement in 2014, permanent atrial fibrillation on chronic Eliquis for anticoagulation, coronary artery disease with myocardial infarction status post one-vessel CABG approximately 35 years ago, hypertension, hyperlipidemia, diabetes mellitus, COPD with frequent steroid use, obstructive sleep apnea without CPAP use, nightly home O2 dependent, current tobacco depen dence, family history of premature coronary artery disease. Status post failed attempt at ICD upgrade secondary to tortuous and unusual anatomy of the coronary sinus. POD #1 left thoracoscopy with placement of left ventricular epicardial lead, upgrade dual-chamber pacemaker to biventricular pacemaker The patient is currently sitting up in bed on the cardiac stepdown unit in no acute distress. States shortness of breath has improved, does complain of surgical pain over his pacemaker site and that his chest tube site, however patient has only requested pain medication twice since surgery. Left chest tube to wall suction with minimal drainage since surgery. Continues to diurese. Objective - Vital Signs Vital signs: Vital Signs Temp 97.3 F L 10/24/18 05:00 Pulse 80 10/24/18 05:00 Resp 18 10/24/18 05:00 BP 106/58 10/24/18 05:00 Pulse Ox 98 10/24/18 05:00 Intake & Output 10/23/18 10/24/18 10/24/18 18:59 06:59 18:59 Intake Total 871 1400 Output Total 1920 1840 Balance -1049 -440 Weight 102.2 kg Intake: IV 871 Intake, IV Titration 1400 Amount ACETAMINOPHEN IV (For NPO 1400 ) 1,000 mg In Empty Bag 1 bag @ 400 mls/hr IVPB Q6HR [facility] Rx#:[id number] Oral 0 Output: Drainage 140 Left Chest 140 Urine 1900 1700 Estimated Blood Loss 20 Other: Voiding Method Indwelling Catheter Indwelling Catheter # Voids 1 # Bowel Movements 1 - Constitutional General appearance: Present: cooperative, no acute distress - Respiratory Details: Lungs sounds diminished bilaterally with expiratory wheezes present. Respirations even, nonlabored. Currently on 2 L nasal cannula with oxygen saturation 98%. Able to achieve 1750 mL on his incentive spirometry. Strong, nonproductive cough. Left pleural chest tube to continuous wall suction, 140 mL serosanguineous drainage overnight, 168 mL since surgery. - Cardiovascular Details: S1, S2 present. Regular rate and rhythm, 100% paced on telemetry. Palpable peripheral pulses bilaterally. Lower extremity edema present bilaterally. No calf pain or tenderness noted. SCDs present. - Gastrointestinal Gastrointestinal Comment(s): Abdomen soft, nontender, nondistended. Active bowel sounds present 4 quadrants. Tolerating diet. - Genitourinary Genitourinary Comment(s): [place] present draining clear, yellow urine. Output 1000 mL in the last 8 hours. - Integumentary Integumentary Comment(s): Skin is warm, dry and pink. Left anterior chest incision and left chest tube site covered with dry intact dressings. - Neurologic Neurologic: Present: CNII-XII intact - Musculoskeletal Musculoskeletal: Present: strength equal bilaterally - Psychiatric Psychiatric: Present: A&O x's 3, appropriate affect, intact judgment & insight - Allied health notes Allied health notes reviewed: nursing - Labs CBC & Chem 7: 10/24/18 06:22 10/24/18 06:22 Labs: Abnormal Lab Results - Last 24 Hours (Table) 10/23/18 10/23/18 10/24/18 Range/Units 11:19 21:08 06:22 RBC 3.34 L (4.30-5.90) m/uL Hgb 8.3 L (13.0-17.5) gm/dL Hct 28.5 L (39.0-53.0) % MCH 24.9 L (25.0-35.0) pg MCHC 29.2 L (31.0-37.0) g/dL RDW 18.9 H (11.5-15.5) % Plt Count 133 L (150-450) k/uL Lymphocytes # 0.6 L (1.0-4.8) k/uL Sodium (137-145) mmol/L Glucose (74-99) mg/dL POC Glucose (mg/dL) 102 H 111 H (75-99) mg/dL 10/24/18 Range/Units 06:22 RBC (4.30-5.90) m/uL Hgb (13.0-17.5) gm/dL Hct (39.0-53.0) % MCH (25.0-35.0) pg MCHC (31.0-37.0) g/dL RDW (11.5-15.5) % Plt Count (150-450) k/uL Lymphocytes # (1.0-4.8) k/uL Sodium 133 L (137-145) mmol/L Glucose 68 L (74-99) mg/dL POC Glucose (mg/dL) (75-99) mg/dL - Imaging and Cardiology Chest x-ray: report reviewed, image reviewed Assessment and Plan Assessment: 1. Severe ischemic cardiomyopathy, severe LV dysfunction, acute on chronic systolic heart failure, EF less than 20% status post ICD placement in 2013, status post left thoracoscopy with placement of left ventricular epicardial lead, upgrade dual-chamber pacemaker to biventricular pacemaker 2. Permanent atrial fibrillation on chronic Eliquis for anticoagulation 3. Coronary artery disease with myocardial infarction status post 1 vessel CABG approximately 35 years ago 4. Hypertension 5. Hyperlipidemia 6. Diabetes mellitus 7. COPD with frequent steroid use 8. Obstructive sleep apnea, no CPAP use 9. Nightly home O2 dependent 10. Current tobacco dependence 11. Family history of premature coronary artery disease Plan: 1. Will continue to monitor chest tube output. 2. Continue to maximize medical therapy per cardiology. Reinitiate beta hermilo therapy when able. May restart Eliquis from our standpoint. 3. Continue albuterol, Symbicort per pulmonology. Encourage incentive spirometry 10 times every hour while awake. Patient needs aggressive pulmonary management. 4. Heart failure management including daily weights and accurate intake and output. 5. Will continue to monitor labs and x-rays. Electrolyte replacement protocol. 6. DVT prophylaxis with subcu heparin while off Eliquis. Time with Patient: Greater than 30
[2018-10-24] MEDS ORDERED: POTASSIUM CHLORIDE ER 20 MEQ TAB.ER PO SCH (09:00)
--- NOTE | 2018-10-24 09:07 | XR ---
EXAMINATION TYPE: XR chest 2V DATE OF EXAM: 10/23/2018 COMPARISON: 10/21/2018 INDICATION: Severe ischemic cardiomyopathy TECHNIQUE: Frontal and lateral views of the chest are obtained. FINDINGS: The heart size is normal. The pulmonary vasculature is normal. Minimal blunting of the right costophrenic angle has developed. Very minimal pleural effusion on the right may be present. Pacemaker overlies left chest. Sternotomy wires are present. IMPRESSION: 1. Interval development of minimal right costophrenic angle blunting which could be related to minima l pleural effusion or atelectasis.
[2018-10-24] MEDS: SYMBICORT 160-4.5 MCG INHALER INHALATION SCH ×2 (09:14→20:54)
[2018-10-24] MEDS: IPRATROPIUM-ALBUTEROL 3 ML NEB INHALATION SCH ×4 (09:14→20:54)
[2018-10-24] MEDS: SPIRONOLACTONE 25 MG TAB PO SCH (10:18)
[2018-10-24] MEDS: MAGNESIUM OXIDE 400 MG TAB PO SCH (10:19)
[2018-10-24] MEDS: ATORVASTATIN 20 MG TAB PO SCH (10:19)
[2018-10-24] MEDS: TAMSULOSIN 0.4 MG CAP.ER.24H PO SCH (10:19)
[2018-10-24] MEDS: ASCORBIC ACID 500 MG TAB PO SCH (10:19)
[2018-10-24] MEDS: FERROUS SULFATE 325 MG TAB PO SCH (10:19)
[2018-10-24 11:36] LABS: Glucose,Whole Blood 122 mg/dL (75-99)
[2018-10-24] MEDS ORDERED: SACUBITRIL/VALSARTAN 24 MG-26 MG TABLET PO SCH (13:30)
--- NOTE | 2018-10-24 14:59 | P.PN ---
Subjective Patient is doing well after thoracoscopic implantation of the LV lead. His resting comfortably in bed. He does have a very mild external jugular vein that's visible at a 45 angle. He does complain of discomfort at the incision site heart sounds are normal soft systolic murmur Breath sounds are reduced bilaterally some crackles at the bases Abdomen soft nontender And is warm minimal edema Impression Status post implantation of a thoracoscopic LV lead for biventricular pacing. Severe congestive heart failure with severe LV dysfunction and 2+ MR Plan STACYIS probably starting tomorrow. I discussed this with the surgeons 1 dose of ENTRESTO today to see the patient can tolerated. His blood pressure is 100 mmHg systolic Toprol-XL 25 mg late in the day Continue by mouth Lasix and by mouth Aldactone Labs are reviewed. Potassium has been stopped Objective - Vital Signs Vital signs: Vital Signs Temp 97.3 F L 10/24/18 05:00 Pulse 80 10/24/18 13:32 Resp 18 10/24/18 05:00 BP 106/58 10/24/18 05:00 Pulse Ox 98 10/24/18 05:00 Intake & Output 10/23/18 10/24/18 10/24/18 18:59 06:59 18:59 Intake Total 871 1400 Output Total 1920 1840 Balance -1049 -440 Weight 102.2 kg Intake: IV 871 Intake, IV Titration 1400 Amount ACETAMINOPHEN IV (For NPO 1400 ) 1,000 mg In Empty Bag 1 bag @ 400 mls/hr IVPB Q6HR [facility] Rx#:[id number] Oral 0 Output: Drainage 140 Left Chest 140 Urine 1900 1700 Estimated Blood Loss 20 Other: Voiding Method Indwelling Catheter Indwelling Catheter # Voids 1 # Bowel Movements 1 - Labs CBC & Chem 7: 10/24/18 06:22 10/24/18 06:22 Labs: Abnormal Lab Results - Last 24 Hours (Table) 10/23/18 10/24/18 10/24/18 Range/Units 21:08 06:22 06:22 RBC 3.34 L (4.30-5.90) m/uL Hgb 8.3 L (13.0-17.5) gm/dL Hct 28.5 L (39.0-53.0) % MCH 24.9 L (25.0-35.0) pg MCHC 29.2 L (31.0-37.0) g/dL RDW 18.9 H (11.5-15.5) % Plt Count 133 L (150-450) k/uL Lymphocytes # 0.6 L (1.0-4.8) k/uL Sodium 133 L (137-145) mmol/L Glucose 68 L (74-99) mg/dL POC Glucose (mg/dL) 111 H (75-99) mg/dL 10/24/18 Range/Units 11:33 RBC (4.30-5.90) m/uL Hgb (13.0-17.5) gm/dL Hct (39.0-53.0) % MCH (25.0-35.0) pg MCHC (31.0-37.0) g/dL RDW (11.5-15.5) % Plt Count (150-450) k/uL Lymphocytes # (1.0-4.8) k/uL Sodium (137-145) mmol/L Glucose (74-99) mg/dL POC Glucose (mg/dL) 122 H (75-99) mg/dL
--- NOTE | 2018-10-24 16:05 | P.PN ---
Subjective Progress Note Date: 10/24/18 Principal diagnosis: Acute on chronic systolic congestive heart failure 63-year-old male patient was transferred from [facility] for a CT surgery evaluation and the need for a surgical right right level was left ventricular lead placement per boiler water tester recommendation. This patient suffers from severe ischemic cardiomyopathy and the patient has severe LV f unction impairment with a +2-3 mitral regurgitation. The patient has permanent atrial fibrillation. The patient's 100% paced and the right ventricle. The patient was having recurrent bouts of congestive heart failure and during this most recent admission the patient developed CHF and required inotropes in the form of dobutamine and Lasix drip. Note that the patient also has multiple other medical problems including coronary artery disease, previous bypass surgery, ischemic cardiomyopathy with an ejection fraction of less than 20%, chronic hypoxic respiratory failure and the patient is on oxygen at 2 L per minute nasal cannula, COPD, obstructive sleep apnea with an AHI of 24 and the patient is unable to tolerate CPAP therapy and he has hypertension, hyperlipidemia and degenerative arthritis. He has undergone previous multivessel bypass surgery many years back. In any rate, during this most rated admission, he was an attempt to upgrade the patient to a biventricular AICD and this was not successful. The patient will be having a surgical placement of the ventricular lead. Currently is transferred. The time of transfer, the patient was found to be short of breath. He was placed again on dobutamine and he was placed on Lasix. He diuresed more than 6 L. By the time of my arrival, the patient was already feeling better. He was not short of breath. Denied having any cough or sputum production. No pleurisy or hemoptysis. No altered mentation. No nausea. No vomiting. He is tolerating the dobutamine at 2.5 g per KG per minute. The tentative plan is to undergo the surgical intervention on Tuesday which is 2 days from now. No other significant events otherwise for now. The patient is seen today 10/21/2018 in follow-up on the selective care unit. He is awake and alert in no acute distress. He is currently sitting up in a chair at the bedside. He is breathing quite a bit easier today as compared to yesterday. He has had a total of 9 L urine output in the past 24 hours. He remains on dobutamine at 2.5 mcg/kg/m. He is on Lasix 80 mg twice a day. Chest x-ray shows cardiomegaly and some basilar atelectasis on the right. Otherwise clear. He is on 2 L/m per nasal cannula. White count 7.6. Hemoglobin 8.3. Creatinine 0.90. Today's evaluation 10/22/2018, I'm seeing this patient for a follow-up. He remains on dobutamine 2.5 g per KG per minute. He diuresed excessively and he became briefly hypotensive. He is currently on oral Lasix 80 mg in the morning and 40 mg in the evening. He is also on Aldactone 50 mg by mouth daily. He is on Entrsto at a dose of one tablet today. No chest pain. No major swelling lower extremities. Is able to lay down flat. The plan is to undergo a surgical insertion of a left anterior lead regarding his AICD tomorrow. No chest pain. His COPD is currently inactive and stable. Blood pressure improved and the patient is not having any dizziness or palpitation or any syncopal episodes. Tolerating his diet. The patient is seen today 10/23/2018 in follow-up on the selective care unit. He is currently sitting up at the bedside. Awake and alert in no acute distress. He is breathing easier today as compared to yesterday. Continues to diurese well. In a negative 4 liter balance. Weight 103 kg. White count 5.5. Hemoglobin 8.0. Creatinine 0.74. The plan is for a left thoracoscopy with p lacement of the left ventricular epicardial lead today by Dr. Hernández. The patient is seen today in 10/24/2018 in follow-up on the selective care unit. He is awake and alert in no acute distress. He did undergo a left-sided thoracoscopy with placement of left ventricular epicardial lead and upgraded dual chamber pacemaker to biventricular pacemaker. Postoperative day #1. Left- sided chest tube remains in place to wall suction. He is currently maintaining good O2 saturations in the high 90s on 2 L/m per nasal cannula. He's been afebrile. Hemodynamically stable. White count 6.6. Hemoglobin 8.3. Creatinine 0.74. Objective - Vital Signs Vital signs: Vital Signs Temp 97.3 F L 10/24/18 05:00 Pulse 80 10/24/18 13:32 Resp 18 10/24/18 05:00 BP 106/58 10/24/18 05:00 Pulse Ox 98 10/24/18 05:00 Intake & Output 10/23/18 10/24/18 10/24/18 18:59 06:59 18:59 Intake Total 871 1400 Output Total 1920 1840 Balance -1049 -440 Weight 102.2 kg Intake: IV 871 Intake, IV Titration 1400 Amount ACETAMINOPHEN IV (For NPO 1400 ) 1,000 mg In Empty Bag 1 bag @ 400 mls/hr IVPB Q6HR [facility] Rx#:[id number] Oral 0 Output: Drainage 140 Left Chest 140 Urine 1900 1700 Estimated Blood Loss 20 Other: Voiding Method Indwelling Catheter Indwelling Catheter # Voids 1 # Bowel Movements 1 - Exam Gen. appearance the patient is calm comfortable no acute distress. On 2 L nasal cannula. Head exam was generally normal. There was no scleral icterus or corneal arcus. Mucous membranes were moist. Neck is short and supple and the patient has significant crowding of the posterior oropharynx. There is no goiter or neck masses. Lungs sounds are diminished and there is prolongation of expiratory phase of breathing and scattered expiratory wheezes without the lung his bilaterally. Few crackles also can be appreciated the lung bases. Left-sided chest tube remains in place to wall suction. Cardiac exam revealed the PMI to be normally situated and sized. The rhythm was regular and no extrasystoles were noted during several minutes of auscultation. The first and second heart sounds were normal and physiologic splitting of the second heart sound was noted. There were no murmurs, rubs, clicks, or gallops. Abdominal exam revealed normal bowel sounds. The abdomen was soft, non-tender, and without masses, organomegaly, or appreciable enlargement of the abdominal aorta. Examination of the extremities revealed easily palpable radial, femoral and pedal pulses. There was no cyanosis, clubbing and there is +1 pitting edema Examination of the skin revealed no evidence of significant rashes, suspicious appearing nevi or other concerning lesions. Neurologically the patient is awake and alert and there is no focal neurological deficit. - Labs CBC & Chem 7: 10/24/18 06:22 10/24/18 06:22 Labs: Abnormal Lab Results - Last 24 Hours (Table) 10/23/18 10/24/18 10/24/18 Range/Units 21:08 06:22 06:22 RBC 3.34 L (4.30-5.90) m/uL Hgb 8.3 L (13.0-17.5) gm/dL Hct 28.5 L (39.0-53.0) % MCH 24.9 L (25.0-35.0) pg MCHC 29.2 L (31.0-37.0) g/dL RDW 18.9 H (11.5-15.5) % Plt Count 133 L (150-450) k/uL Lymphocytes # 0.6 L (1.0-4.8) k/uL Sodium 133 L (137-145) mmol/L Glucose 68 L (74-99) mg/dL POC Glucose (mg/dL) 111 H (75-99) mg/dL 10/24/18 Range/Units 11:33 RBC (4.30-5.90) m/uL Hgb (13.0-17.5) gm/dL Hct (39.0-53.0) % MCH (25.0-35.0) pg MCHC (31.0-37.0) g/dL RDW (11.5-15.5) % Plt Count (150-450) k/uL Lymphocytes # (1.0-4.8) k/uL Sodium (137-145) mmol/L Glucose (74-99) mg/dL POC Glucose (mg/dL) 122 H (75-99) mg/dL Assessment and Plan Assessment: assessment 1 chronic congestion heart failure in the form of severe ischemic cardiomyopathy with an ejection fraction of less than 20% and +2-3 mitral regurgitation with frequent hospitalizations for decompensated heart failure. The patient is quite symptomatic from CHF and he received a thoracoscopy left ventricular lead placement with upgrade to a biventricular device. Postoperative day #1. 2 acute on top of chronic dyspnea secondary to worsening heart failure. The patient is currently on oral Lasix and his condition is being optimized and the patient is producing adequate amount of urine output. 3 coronary artery disease with previous bypass surgery 4 hypertension 5 hyperlipidemia 6 diabetes mellitus 7 COPD currently inactive in stable 8 obesity 9 obstructive sleep apnea with an AHI of 24 currently on no treatment as the patient was unable to tolerate his treatment in the past 10 diabetic peripheral neuropathy 11 AICD placement for ischemic cardiomyopathy 12 osteoarthritis 13 anemia of chronic disease Plan: The patient was seen and evaluated by Dr. Tompkins. He did undergo thoracoscopic left ventricular lead placement and upgrade to biventricular device yesterday. Left-sided chest tube remains in place. He remains on oral Lasix. He has been diuresing well. We will continue to follow and make further recommendations based on his clinical status. I, the cosigning physician, performed a history & physical examination of the patient. Lungs sounds with faint bilateral end expiratory wheeze, crackles in the right base. Left-sided chest tube in place. Maintaining good O2 saturations in the 90s on 2 L/m per nasal cannula. I discussed the assessment and plan of care with my nurse practitioner, Narcisa Graham. I attest to the above note as dictated by her.
[2018-10-24 16:29] LABS: Glucose,Whole Blood 121 mg/dL (75-99)
--- NOTE | 2018-10-24 17:22 | P.PN ---
Subjective Progress Note Date: 10/24/18 Hospital course: 63-year-old pleasant gentleman with history of COPD heart failure ejection fraction of less than 20% with an ACT was admitted to [facility] 2 days ago with shortness of breath was treated for heart failure as well as COPD patient became hypovolemic went into renal failure Lasix was held which led to have hepatic congestion heart failure exacerbation with subsequently improved w ith the dobutamine drip. Patient was also hyponatremic initial hypervolemic hyponatremia improved with IV Lasix. Patient is presently on dobutamine drip patient was transferred here to this hospital for conversion of AICD to biventricular ICD, unable to undergo this procedure because telemarketing agent was not able to access coronary sinus and the cardiothoracic was surgery was consulted, presently his heart failure is being optimized. His PERRLA and 60 twice a day of Lasix serum sodium of 125. Patient also is feeling much better not on any IV Lasix for steroids at this time. 10/21/2018 Patient is still complaining of from Little chest pain, however is improving. Patient denies dyspnea or coughing. He follow-up with Dr. Angulo as an outpatient. He is on home oxygen of 2-3 L/m. Vitals are stable, and his labs reviewed. Hemoglobin 8.3. Mildly elevated liver enzymes, sodium 132, creatin ine 0.9. Patient continue on dobutamine drip and diuretic of Lasix 80 mg by mouth twice a day. Lovenox has been provided today. Entresto is also has been added by cardiology team. Patient is scheduled for dual-chamber pacemaker to to biventricular pacemaker on 10/23/2018 10/22/2018 Patients with no chest pain. His blood pressure this morning was on the low side 84/69. Cardiology recommended to hold his blood pressure medication and stop dobutamine and give small dose of normal saline bolus. However his medication are continuing now as per cardiology recommendation. Patient is going for insertion of ventricular lead tomorrow 10/23/2018 awaiting left thoracoscopy/left ventricular epicardial lead placement with cardiothoracic surgery. Diuresing well on oral Lasix with 24-hour I&O reflecting a negative fluid balance. Maintaining O2 sats of 90s on room air. IS up to 2500. Denies chest pain, palpitations. Afebrile, normal WBC. Sodium 135 10/24/2018 yesterday he underwent left thorascopy with LV lead placement, upgraded dual-chamber pacemaker to biventricular pacemaker .tolerated procedure well. Complains of chest tube/ left pacemaker site discomfort. Left pleural chest tube to wall suction. Entresto resumed today. Diuresing well on Lasix orally with 24-hour I&O reflecting a negative fluid balance. Breathing improving, maintaining O2 sats in the high 90s on room air. IS up to 2000. Afebrile. Objective - Vital Signs Vital signs: Vital Signs Temp 97.3 F L 10/24/18 05:00 Pulse 80 10/24/18 13:32 Resp 18 10/24/18 05:00 BP 106/58 10/24/18 05:00 Pulse Ox 98 10/24/18 05:00 Intake & Output 10/23/18 10/24/18 10/24/18 18:59 06:59 18:59 Intake Total 871 1400 Output Total 1920 1840 Balance -1049 -440 Weight 102.2 kg Intake: IV 871 Intake, IV Titration 1400 Amount ACETAMINOPHEN IV (For NPO 1400 ) 1,000 mg In Empty Bag 1 bag @ 400 mls/hr IVPB Q6HR [facility] Rx#:[id number] Oral 0 Output: Drainage 140 Left Chest 140 Urine 1900 1700 Estimated Blood Loss 20 Other: Voiding Method Indwelling Catheter Indwelling Catheter # Voids 1 # Bowel Movements 1 - Exam GENERAL: The patient is sitting up in bed, alert and oriented x3, no acute distress. HEENT: Pupils are round and equally reacting to light. EOMI. No scleral icterus. No conjunctival pallor. Normocephalic, atraumatic. CARDIOVASCULAR: S1 and S2 present. Systolic murmur, no rubs, or gallops. mildly elevated JVD PULMONARY: Bilateral bases diminished with Scattered expiratory wheezes, fine bibasilar crackles. Left pleural chest tube to continuous wall suction, serosanguineous drainage. ABDOMEN: Soft, nontender, nondistended, normoactive bowel sounds. No palpable organomegaly. EXTREMITIES: No cyanosis, clubbing, positive pedal edema. NEUROLOGICAL: Gross neurological examination did not reveal any focal deficits. SKIN: No rashes. - Labs CBC & Chem 7: 10/24/18 06:22 10/24/18 06:22 Labs: Abnormal Lab Results - Last 24 Hours (Table) 10/23/18 10/24/18 10/24/18 Range/Units 21:08 06:22 06:22 RBC 3.34 L (4.30-5.90) m/uL Hgb 8.3 L (13.0-17.5) gm/dL Hct 28.5 L (39.0-53.0) % MCH 24.9 L (25.0-35.0) pg MCHC 29.2 L (31.0-37.0) g/dL RDW 18.9 H (11.5-15.5) % Plt Count 133 L (150-450) k/uL Lymphocytes # 0.6 L (1.0-4.8) k/uL Sodium 133 L (137-145) mmol/L Glucose 68 L (74-99) mg/dL POC Glucose (mg/dL) 111 H (75-99) mg/dL 10/24/18 Range/Units 11:33 RBC (4.30-5.90) m/uL Hgb (13.0-17.5) gm/dL Hct (39.0-53.0) % MCH (25.0-35.0) pg MCHC (31.0-37.0) g/dL RDW (11.5-15.5) % Plt Count (150-450) k/uL Lymphocytes # (1.0-4.8) k/uL Sodium (137-145) mmol/L Glucose (74-99) mg/dL POC Glucose (mg/dL) 122 H (75-99) mg/dL Assessment and Plan Assessment: -Congestive heart failure chronic systolic dysfunction with acute exacerbation, status post left thorascopy with LV lead placement, upgraded dual-chamber pacemaker to biventricular pacemaker. -CAD with history of GA, CABG -Mitral regurgitation -COPD without any acute exacerbation -Chronic atrial fibrillation presently rate controlled -COPD without any acute exacerbation -Hypertension -Hyperlipidemia -Hyponatremia hypervolemic expected to improve with treatment of heart failure -Nicotine dependence Plan: Continue on current medication regime ,monitoring and symptomatic treatment.Aggressive pulmonary toileting.Entresto resumed today, close monitoring of VS. close monitoring of electrolytes, replacement protocol in place with repeat labs ordered for a.m. cardiology discussing resuming Eliquis tomorrow, currently on heparin subcu for DVT prophylaxis. The impression and plan of care has been dictated as directed. : I performed a history and examination of this patient, discussed the same with the dictator. I agree with the dictator's note ,documented as a scribe. Any additional findings or plans will be noted.
[2018-10-24] MEDS: METOPROLOL SUCCINATE (ER) 25 MG TAB.ER.24H PO SCH (18:43)
[2018-10-24 20:56] LABS: Glucose,Whole Blood 114 mg/dL (75-99)
[2018-10-24] MEDS: HYDROcodone/APAP 5-325MG 1 EACH TAB PO PRN (21:25)
[2018-10-25] MEDS: HYDROcodone/APAP 5-325MG 1 EACH TAB PO PRN ×5 (01:17→21:03)
[2018-10-25 05:48] LABS: Glucose,Whole Blood 94 mg/dL (75-99)
[2018-10-25] MEDS: INSULIN ASPART (NovoLOG) 100 UNIT/ML VIAL SQ SCH ×4 (06:29→21:07)
[2018-10-25 06:48] LABS: Anisocytosis Slight; Basophils % (A) 0 %; Eosinophils # (A) 0.2 k/uL (0-0.7); Eosinophils % (A) 3 %; HCT 27.9 % (39.0-53.0); HGB 8.1 gm/dL (13.0-17.5); Hypochromasia Marked; Lymphocytes # (A) 0.9 k/uL (1.0-4.8); Lymphocytes % (A) 16 %; MCH 24.3 pg (25.0-35.0); MCHC 28.8 g/dL (31.0-37.0); MCV 84.2 fL (80.0-100.0); Mean Platelet Volume 7.5; Monocytes # (A) 0.3 k/uL (0-1.0); Monocytes % (A) 6 %; Neutrophils % (A) 73 %; Platelet Count 118 k/uL (150-450); Poikilocytosis Slight; RBC 3.32 m/uL (4.30-5.90); RDW 19.5 % (11.5-15.5); WBC 5.5 k/uL (3.8-10.6)
[2018-10-25 07:00] LABS: Anion Gap 5 mmol/L; Blood Urea Nitrogen 15 mg/dL (9-20); Calcium 9.5 mg/dL (8.4-10.2); Carbon Dioxide 27 mmol/L (22-30); Chloride 101 mmol/L (98-107); Glucose 81 mg/dL (74-99); Potassium 4.5 mmol/L (3.5-5.1); Sodium 133 mmol/L (137-145)
--- NOTE | 2018-10-25 08:05 | P.PN ---
Subjective Progress Note Date: 10/25/18 Principal diagnosis: Severe ischemic cardiomyopathy, severe LV dysfunction with EF less than 20% status post ICD placement in 2014, permanent atrial fibrillation on chronic Eliquis for anticoagulation, coronary artery disease with myocardial infarction status post one-vessel CABG approximately 35 years ago, hypertension, hyperlipidemia, diabetes mellitus, COPD with frequent steroid use, obstructive sleep apnea without CPAP use, nightly home O2 dependent, current tobacco depen dence, family history of premature coronary artery disease. Status post failed attempt at ICD upgrade secondary to tortuous and unusual anatomy of the coronary sinus. POD #2 left thoracoscopy with placement of left ventricular epicardial lead, upgrade dual-chamber pacemaker to biventricular pacemaker The patient is currently sitting up at the side of the bed on the cardiac stepdown unit in no acute distress. States shortness of breath has improved, states pain is controlled with current medication regimen. Left chest tube to waterseal with minimal drainage. Continues to diurese. Objective - Vital Signs Vital signs: Vital Signs Temp 97.8 F 10/25/18 04:10 Pulse 81 10/25/18 07:27 Resp 19 10/25/18 04:10 BP 84/54 10/25/18 07:27 Pulse Ox 96 10/25/18 04:10 Intake & Output 10/24/18 10/25/18 10/25/18 18:59 06:59 18:59 Intake Total 480 Output Total 3230 20 Balance 480 -3230 -20 Intake: Oral 480 Output: Chest Tube Drainage 30 Chest Tube Left Left 30 Pleural/Mediastinal Drainage 20 Left Chest 20 Urine 3200 Other: Voiding Method Indwelling Catheter Indwelling Catheter - Constitutional General appearance: Present: cooperative, no acute distress, obese - Respiratory Details: Lungs sounds diminished bilaterally with expiratory wheezes present. Respirations even, nonlabored. Currently on 2 L nasal cannula with oxygen saturation 96%. Able to achieve 2500 mL on his incentive spirometry. Strong, nonproductive cough. Left pleural chest tube to waterseal, 30 mL serous drainage overnight, 80 mL in the last 24 hours. - Cardiovascular Details: S1, S2 present. Regular rate and rhythm, 100% paced on telemetry. Palpable peripheral pulses bilaterally. Lower extremity edema present bilaterally. No calf pain or tenderness noted. SCDs present. - Gastrointestinal Gastrointestinal Comment(s): Abdomen soft, nontender, nondistended. Active bowel sounds present 4 quadrants. Tolerating diet. - Genitourinary Genitourinary Comment(s): [place] present draining clear, yellow urine. Output 2200 mL in the last 8 hours. - Integumentary Integumentary Comment(s): Skin is warm, dry and pink. Left anterior chest incision and left chest tube site covered with dry intact dressings. - Neurologic Neurologic: Present: CNII-XII intact - Musculoskeletal Musculoskeletal: Present: gait normal, strength equal bilaterally - Psychiatric Psychiatric: Present: A&O x's 3, appropriate affect, intact judgment & insight - Allied health notes Allied health notes reviewed: nursing - Labs CBC & Chem 7: 10/25/18 06:19 10/25/18 06:19 Labs: Abnormal Lab Results - Last 24 Hours (Table) 10/24/18 10/24/18 10/24/18 Range/Units 11:33 16:25 20:55 RBC (4.30-5.90) m/uL Hgb (13.0-17.5) gm/dL Hct (39.0-53.0) % MCH (25.0-35.0) pg MCHC (31.0-37.0) g/dL RDW (11.5-15.5) % Plt Count (150-450) k/uL Lymphocytes # (1.0-4.8) k/uL Sodium (137-145) mmol/L POC Glucose (mg/dL) 122 H 121 H 114 H (75-99) mg/dL 10/25/18 10/25/18 Range/Units 06:19 06:19 RBC 3.32 L (4.30-5.90) m/uL Hgb 8.1 L (13.0-17.5) gm/dL Hct 27.9 L (39.0-53.0) % MCH 24.3 L (25.0-35.0) pg MCHC 28.8 L (31.0-37.0) g/dL RDW 19.5 H (11.5-15.5) % Plt Count 118 L (150-450) k/uL Lymphocytes # 0.9 L (1.0-4.8) k/uL Sodium 133 L (137-145) mmol/L POC Glucose (mg/dL) (75-99) mg/dL - Imaging and Cardiology Chest x-ray: report reviewed, image reviewed Assessment and Plan Assessment: 1. Severe ischemic cardiomyopathy, severe LV dysfunction, acute on chronic systolic heart failure, EF less than 20% status post ICD placement in 2014, status post left thoracoscopy with placement of left ventricular epicardial lead, upgrade dual-chamber pacemaker to biventricular pacemaker 2. Permanent atrial fibrillation on chronic Eliquis for anticoagulation 3. Coronary artery disease with myocardial infarction status post 1 vessel CABG approximately 35 years ago 4. Hypertension 5. Hyperlipidemia 6. Diabetes mellitus 7. COPD with frequent steroid use 8. Obstructive sleep apnea, no CPAP use 9. Nightly home O2 dependent 10. Current tobacco dependence 11. Family history of premature coronary artery disease Plan: 1. Will discontinue chest tube today. 2. Continue to maximize medical therapy per cardiology. Reinitiate beta hermilo therapy when able. May restart Eliquis from our standpoint. 3. Continue albuterol, Symbicort per pulmonology. Encourage incentive spirometry 10 times every hour while awake. Patient needs aggressive pulmonary management. 4. Heart failure management including daily weights and accurate intake and output. 5. Will continue to monitor labs and x-rays. Electrolyte replacement protocol. 6. DVT prophylaxis with subcu heparin while off Eliquis. 7. Will sign off and see only as needed once chest tube has been discontinued. Time with Patient: Greater than 30
--- NOTE | 2018-10-25 08:13 | P.PN ---
Subjective Patient is sitting up at the edge of the bed. His blood pressures in the mid 80s but he is asymptomatic. No JVD he looks very comfortable No chest pain other than the incision site No respiratory distress no lower extremity edema Blood pressure 99/64 mmHg pulse rate in the 80s Heart sounds are soft there's a soft systolic murmur Breath sounds are reduced bilaterally with fine crackles only at the bases Abdomen soft Impression Severe ischemic cardio myopathy with 2+ MR Underlying persistent atrial fibrillation Complete heart block Upgrade to a biventricular ICD, thoracoscopic LV lead placement Low blood pressure but has tolerated ENTRESTO yesterday without any symptoms Suggest Reduce Lasix to 40 g once daily after Bi V pacing Increase ENTRESTO to twice a day Toprol-XL 25 mg in the afternoon ELIQUIS to be started once chest tube is out Labs are reviewed sodium 133 potassium 4.5 BUN 15 creatinine 0.87 hemoglobin 8.1 white count 5.5 Objective - Vital Signs Vital signs: Vital Signs Temp 97.8 F 10/25/18 04:10 Pulse 81 10/25/18 07:27 Resp 19 10/25/18 04:10 BP 84/54 10/25/18 07:27 Pulse Ox 96 10/25/18 04:10 Intake & Output 10/24/18 10/25/18 10/25/18 18:59 06:59 18:59 Intake Total 480 240 Output Total 3230 20 Balance 480 -3230 220 Weight 102 kg Intake: Oral 480 240 Output: Chest Tube Drainage 30 Chest Tube Left Left 30 Pleural/Mediastinal Drainage 20 Left Chest 20 Urine 3200 Other: Voiding Method Indwelling Catheter Indwelling Catheter - Labs CBC & Chem 7: 10/25/18 06:19 10/25/18 06:19 Labs: Abnormal Lab Results - Last 24 Hours (Table) 10/24/18 10/24/18 10/24/18 Range/Units 11:33 16:25 20:55 RBC (4.30-5.90) m/uL Hgb (13.0-17.5) gm/dL Hct (39.0-53.0) % MCH (25.0-35.0) pg MCHC (31.0-37.0) g/dL RDW (11.5-15.5) % Plt Count (150-450) k/uL Lymphocytes # (1.0-4.8) k/uL Sodium (137-145) mmol/L POC Glucose (mg/dL) 122 H 121 H 114 H (75-99) mg/dL 10/25/18 10/25/18 Range/Units 06:19 06:19 RBC 3.32 L (4.30-5.90) m/uL Hgb 8.1 L (13.0-17.5) gm/dL Hct 27.9 L (39.0-53.0) % MCH 24.3 L (25.0-35.0) pg MCHC 28.8 L (31.0-37.0) g/dL RDW 19.5 H (11.5-15.5) % Plt Count 118 L (150-450) k/uL Lymphocytes # 0.9 L (1.0-4.8) k/uL Sodium 133 L (137-145) mmol/L POC Glucose (mg/dL) (75-99) mg/dL
[2018-10-25] MEDS: SYMBICORT 160-4.5 MCG INHALER INHALATION SCH ×2 (08:32→20:47)
[2018-10-25] MEDS: IPRATROPIUM-ALBUTEROL 3 ML NEB INHALATION SCH ×4 (08:32→20:43)
[2018-10-25] MEDS ORDERED: SACUBITRIL/VALSARTAN 24 MG-26 MG TABLET PO SCH (09:00)
--- NOTE | 2018-10-25 09:23 | XR ---
EXAMINATION TYPE: XR chest 2V DATE OF EXAM: 10/25/2018 COMPARISON: 10/24/2018 HISTORY: Diffusion TECHNIQUE: Frontal and lateral views of the chest are obtained. FINDINGS: Subcutaneous emphysema overlies the left lateral chest wall and lower lung however no resi dual pneumothorax is identified. There is stable placement of the left thoracostomy tube. Left basila r linear probable atelectasis is again seen. Right PICC line is unchanged in position. Multilead left -sided cardiac device is again noted with mildly enlarged cardiomediastinal silhouette. No sizable le ft pleural effusion. Very trace right pleural effusion blunts the costophrenic angle. There is improv ed aeration over the right hemidiaphragm. IMPRESSION: New trace right pleural effusion and stable left subcutaneous emphysema with strand-like left basilar atelectasis and stable left thoracostomy tube placement. No residual pneumothorax.
[2018-10-25] MEDS: TAMSULOSIN 0.4 MG CAP.ER.24H PO SCH (09:32)
[2018-10-25] MEDS: SPIRONOLACTONE 25 MG TAB PO SCH (09:32)
[2018-10-25] MEDS: SACUBITRIL/VALSARTAN 24 MG-26 MG TABLET PO SCH ×2 (09:33→20:59)
[2018-10-25] MEDS: HEPARIN SODIUM,PORCINE 5,000 UNIT/ML 1 ML VIAL SQ SCH ×3 (09:34→23:43)
[2018-10-25] MEDS: diphenhydrAMINE 2% CREAM 28.4 GM TUBE TOPICAL SCH ×2 (09:35→21:00)
[2018-10-25] MEDS: ATORVASTATIN 20 MG TAB PO SCH (09:35)
--- NOTE | 2018-10-25 11:43 | P.PN ---
Subjective Progress Note Date: 10/25/18 Principal diagnosis: Acute on chronic systolic congestive heart failure 63-year-old male patient was transferred from [facility] for a CT surgery evaluation and the need for a surgical right right level was left ventricular lead placement per insurance examining clerk recommendation. This patient suffers from severe ischemic cardiomyopathy and the patient has severe LV f unction impairment with a +2-3 mitral regurgitation. The patient has permanent atrial fibrillation. The patient's 100% paced and the right ventricle. The patient was having recurrent bouts of congestive heart failure and during this most recent admission the patient developed CHF and required inotropes in the form of dobutamine and Lasix drip. Note that the patient also has multiple other medical problems including coronary artery disease, previous bypass surgery, ischemic cardiomyopathy with an ejection fraction of less than 20%, chronic hypoxic respiratory failure and the patient is on oxygen at 2 L per minute nasal cannula, COPD, obstructive sleep apnea with an AHI of 24 and the patient is unable to tolerate CPAP therapy and he has hypertension, hyperlipidemia and degenerative arthritis. He has undergone previous multivessel bypass surgery many years back. In any rate, during this most rated admission, he was an attempt to upgrade the patient to a biventricular AICD and this was not successful. The patient will be having a surgical placement of the ventricular lead. Currently is transferred. The time of transfer, the patient was found to be short of breath. He was placed again on dobutamine and he was placed on Lasix. He diuresed more than 6 L. By the time of my arrival, the patient was already feeling better. He was not short of breath. Denied having any cough or sputum production. No pleurisy or hemoptysis. No altered mentation. No nausea. No vomiting. He is tolerating the dobutamine at 2.5 g per KG per minute. The tentative plan is to undergo the surgical intervention on Tuesday which is 2 days from now. No other significant events otherwise for now. The patient is seen today 10/21/2018 in follow-up on the selective care unit. He is awake and alert in no acute distress. He is currently sitting up in a chair at the bedside. He is breathing quite a bit easier today as compared to yesterday. He has had a total of 9 L urine output in the past 24 hours. He remains on dobutamine at 2.5 mcg/kg/m. He is on Lasix 80 mg twice a day. Chest x-ray shows cardiomegaly and some basilar atelectasis on the right. Otherwise clear. He is on 2 L/m per nasal cannula. White count 7.6. Hemoglobin 8.3. Creatinine 0.90. Today's evaluation 10/22/2018, I'm seeing this patient for a follow-up. He remains on dobutamine 2.5 g per KG per minute. He diuresed excessively and he became briefly hypotensive. He is currently on oral Lasix 80 mg in the morning and 40 mg in the evening. He is also on Aldactone 50 mg by mouth daily. He is on Entrsto at a dose of one tablet today. No chest pain. No major swelling lower extremities. Is able to lay down flat. The plan is to undergo a surgical insertion of a left anterior lead regarding his AICD tomorrow. No chest pain. His COPD is currently inactive and stable. Blood pressure improved and the patient is not having any dizziness or palpitation or any syncopal episodes. Tolerating his diet. The patient is seen today 10/23/2018 in follow-up on the selective care unit. He is currently sitting up at the bedside. Awake and alert in no acute distress. He is breathing easier today as compared to yesterday. Continues to diurese well. In a negative 4 liter balance. Weight 103 kg. White count 5.5. Hemoglobin 8.0. Creatinine 0.74. The plan is for a left thoracoscopy with p lacement of the left ventricular epicardial lead today by Dr. Hernández. The patient is seen today in 10/24/2018 in follow-up on the selective care unit. He is awake and alert in no acute distress. He did undergo a left-sided thoracoscopy with placement of left ventricular epicardial lead and upgraded dual chamber pacemaker to biventricular pacemaker. Postoperative day #1. Left- sided chest tube remains in place to wall suction. He is currently maintaining good O2 saturations in the high 90s on 2 L/m per nasal cannula. He's been afebrile. Hemodynamically stable. White count 6.6. Hemoglobin 8.3. Creatinine 0.74. The patient is seen today 10/25/2018 in follow-up on the selective care unit. He is currently sitting up at the bedside. Awake and alert in no acute distress. Maintaining good O2 saturations in the 90s on 2 L/m per nasal cannula. Today's chest x-ray shows a trace right pleural effusion and stable left subcutaneous emphysema was treated and like left basilar atelectasis and stable left thoracostomy tube placement. No residual pneumothorax. White count 5.5. Hemoglobin 8.1. Creatinine 0.87. Maintained on bronchodilators, Symbicort, diuretics. Objective - Vital Signs Vital signs: Vital Signs Temp 97.8 F 10/25/18 04:10 Pulse 84 10/25/18 08:41 Resp 19 10/25/18 04:10 BP 84/54 10/25/18 07:27 Pulse Ox 96 10/25/18 04:10 Intake & Output 10/24/18 10/25/18 10/25/18 18:59 06:59 18:59 Intake Total 480 240 Output Total 3230 20 Balance 480 -3230 220 Weight 102 kg Intake: Oral 480 240 Output: Chest Tube Drainage 30 Chest Tube Left Left 30 Pleural/Mediastinal Drainage 20 Left Chest 20 Urine 3200 Other: Voiding Method Indwelling Catheter Indwelling Catheter - Exam Gen. appearance the patient is alert, comfortable in no acute distress. On 2 L nasal cannula. Head exam was generally normal. There was no scleral icterus or corneal arcus. Mucous membranes were moist. Neck is short and supple and the patient has significant crowding of the posterior oropharynx. There is no goiter or neck masses. Lungs sounds are diminished. Few crackles also can be appreciated the lung bases. Left-sided chest tube remains in place to wall suction. Cardiac exam revealed the PMI to be normally situated and sized. The rhythm was regular and no extrasystoles were noted during several minutes of auscultation. The first and second heart sounds were normal and physiologic splitting of the second heart sound was noted. There were no murmurs, rubs, clicks, or gallops. Abdominal exam revealed normal bowel sounds. The abdomen was soft, non-tender, and without masses, organomegaly, or appreciable enlargement of the abdominal aorta. Examination of the extremities revealed easily palpable radial, femoral and pedal pulses. There was no cyanosis, clubbing and there is +1 pitting edema Examination of the skin revealed no evidence of significant rashes, suspicious appearing nevi or other concerning lesions. Neurologically the patient is awake and alert and there is no focal neurological deficit. - Labs CBC & Chem 7: 10/25/18 06:19 10/25/18 06:19 Labs: Abnormal Lab Results - Last 24 Hours (Table) 10/24/18 10/24/18 10/24/18 Range/Units 11:33 16:25 20:55 RBC (4.30-5.90) m/uL Hgb (13.0-17.5) gm/dL Hct (39.0-53.0) % MCH (25.0-35.0) pg MCHC (31.0-37.0) g/dL RDW (11.5-15.5) % Plt Count (150-450) k/uL Lymphocytes # (1.0-4.8) k/uL Sodium (137-145) mmol/L POC Glucose (mg/dL) 122 H 121 H 114 H (75-99) mg/dL 10/25/18 10/25/18 Range/Units 06:19 06:19 RBC 3.32 L (4.30-5.90) m/uL Hgb 8.1 L (13.0-17.5) gm/dL Hct 27.9 L (39.0-53.0) % MCH 24.3 L (25.0-35.0) pg MCHC 28.8 L (31.0-37.0) g/dL RDW 19.5 H (11.5-15.5) % Plt Count 118 L (150-450) k/uL Lymphocytes # 0.9 L (1.0-4.8) k/uL Sodium 133 L (137-145) mmol/L POC Glucose (mg/dL) (75-99) mg/dL Assessment and Plan Assessment: assessment 1 chronic congestion heart failure in the form of severe ischemic cardiomyopathy with an ejection fraction of less than 20% and +2-3 mitral regurgitation with frequent hospitalizations for decompensated heart failure. The patient is quite symptomatic from CHF and he received a thoracoscopy left ventricular lead placem ent with upgrade to a biventricular device. Postoperative day #2. 2 acute on top of chronic dyspnea secondary to worsening heart failure. The patient is currently on oral Lasix and his condition is being optimized and the patient is producing adequate amount of urine output. 3 coronary artery disease with previous bypass surgery 4 hypertension 5 hyperlipidemia 6 diabetes mellitus 7 COPD currently inactive in stable 8 obesity 9 obstructive sleep apnea with an AHI of 24 currently on no treatment as the patient was unable to tolerate his treatment in the past 10 diabetic peripheral neuropathy 11 AICD placement for ischemic cardiomyopathy 12 osteoarthritis 13 anemia of chronic disease Plan: The patient was seen and evaluated by Dr. Tompkins. Chest x-ray and labs reviewed. He did undergo thoracoscopic left ventricular lead placement and upgrade to biventricular device. Left-sided chest tube remains in place with plans to be removed today. We will continue to follow and make further recommendations based on his clinical status. I, the cosigning physician, performed a history & physical examination of the patient. Lungs sounds with faint bilateral end expiratory wheeze, crackles in the right base. Left-sided chest tube in place. Maintaining good O2 saturations in the 90s on 2 L/m per nasal cannula. I discussed the assessment and plan of care with my nurse practitioner, Narcisa Graham. I attest to the above note as dictated by her.
[2018-10-25 11:51] LABS: Glucose,Whole Blood 103 mg/dL (75-99)
[2018-10-25] MEDS: FERROUS SULFATE 325 MG TAB PO SCH (11:55)
[2018-10-25] MEDS: ASCORBIC ACID 500 MG TAB PO SCH (11:55)
[2018-10-25] MEDS: MAGNESIUM OXIDE 400 MG TAB PO SCH (11:55)
[2018-10-25] MEDS: METOPROLOL SUCCINATE (ER) 25 MG TAB.ER.24H PO SCH (14:14)
[2018-10-25] MEDS: FUROSEMIDE 40 MG TAB PO SCH (14:14)
[2018-10-25 16:14] LABS: Glucose,Whole Blood 126 mg/dL (75-99)
--- NOTE | 2018-10-25 16:30 | P.PN ---
Subjective Progress Note Date: 10/25/18 Hospital course: 63-year-old pleasant gentleman with history of COPD heart failure ejection fraction of less than 20% with an ACT was admitted to [facility] 2 days ago with shortness of breath was treated for heart failure as well as COPD patient became hypovolemic went into renal failure Lasix was held which led to have hepatic congestion heart failure exacerbation with subsequently improved w ith the dobutamine drip. Patient was also hyponatremic initial hypervolemic hyponatremia improved with IV Lasix. Patient is presently on dobutamine drip patient was transferred here to this hospital for conversion of AICD to biventricular ICD, unable to undergo this procedure because car mechanic helper was not able to access coronary sinus and the cardiothoracic was surgery was consulted, presently his heart failure is being optimized. His PERRLA and 60 twice a day of Lasix serum sodium of 125. Patient also is feeling much better not on any IV Lasix for steroids at this time. 10/21/2018 Patient is still complaining of from Little chest pain, however is improving. Patient denies dyspnea or coughing. He follow-up with Dr. Angulo as an outpatient. He is on home oxygen of 2-3 L/m. Vitals are stable, and his labs reviewed. Hemoglobin 8.3. Mildly elevated liver enzymes, sodium 132, creatin ine 0.9. Patient continue on dobutamine drip and diuretic of Lasix 80 mg by mouth twice a day. Lovenox has been provided today. Entresto is also has been added by cardiology team. Patient is scheduled for dual-chamber pacemaker to to biventricular pacemaker on 10/23/2018 10/22/2018 Patients with no chest pain. His blood pressure this morning was on the low side 84/69. Cardiology recommended to hold his blood pressure medication and stop dobutamine and give small dose of normal saline bolus. However his medication are continuing now as per cardiology recommendation. Patient is going for insertion of ventricular lead tomorrow 10/23/2018 awaiting left thoracoscopy/left ventricular epicardial lead placement with cardiothoracic surgery. Diuresing well on oral Lasix with 24-hour I&O reflecting a negative fluid balance. Maintaining O2 sats of 90s on room air. IS up to 2500. Denies chest pain, palpitations. Afebrile, normal WBC. Sodium 135 10/24/2018 yesterday he underwent left thorascopy with LV lead placement, upgraded dual-chamber pacemaker to biventricular pacemaker .tolerated procedure well. Complains of chest tube/ left pacemaker site discomfort. Left pleural chest tube to wall suction. Entresto resumed today. Diuresing well on Lasix orally with 24-hour I&O reflecting a negative fluid balance. Breathing improving, maintaining O2 sats in the high 90s on room air. IS up to 2000. Afebrile. 10/25/2018 chest x-ray reporting new trace right pleural effusion, stable left subcutaneous emphysema, left basilar linear atelectasis, no residual pn eumothorax.chest tube discontinued. Tolerated well. Reports significant improvement in pacemaker site/prior chest tube site discomfort. Denies chest pain, palpitations or increasing shortness of breath. Anticoagulation resumed with Eliquis post chest tube removal. Continues to diurese well on oral Lasix with 24-hour I&O reflecting a negative fluid balance. Maintained on nebulized bronchodilators, Symbicort, maintaining O2 sats in the high 90s on 2 L nasal cannula. Incentive spirometer up to 2500. Hemoglobin 8.1. Blood sugars controlled. Sodium 133. Objective - Vital Signs Vital signs: Vital Signs Temp 97.8 F 10/25/18 12:00 Pulse 80 10/25/18 12:00 Resp 18 10/25/18 12:00 BP 83/50 10/25/18 12:00 Pulse Ox 98 10/25/18 12:00 Intake & Output 10/24/18 10/25/18 10/25/18 18:59 06:59 18:59 Intake Total 480 240 Output Total 3230 20 Balance 480 -3230 220 Weight 102 kg Intake: Oral 480 240 Output: Chest Tube Drainage 30 Chest Tube Left Left 30 Pleural/Mediastinal Drainage 20 Left Chest 20 Urine 3200 Other: Voiding Method Indwelling Catheter Indwelling Catheter Indwelling Catheter - Exam GENERAL: The patient is sitting up in bed, alert and oriented x3, no acute distress. HEENT: Pupils are round and equally reacting to light. EOMI. No scleral icterus. No conjunctival pallor. Normocephalic, atraumatic. CARDIOVASCULAR: S1 and S2 present. Systolic murmur, no rubs, or gallops. No JVD. PULMONARY: Bilateral bases diminished with occasional fine bibasilar crackles ABDOMEN: Soft, nontender, nondistended, normoactive bowel sounds. No palpable organomegaly. EXTREMITIES: No cyanosis, clubbing, positive pedal edema. NEUROLOGICAL: Gross neurological examination did not reveal any focal deficits. SKIN: No rashes. - Labs CBC & Chem 7: 10/25/18 06:19 10/25/18 06:19 Labs: Abnormal Lab Results - Last 24 Hours (Table) 10/24/18 10/24/18 10/25/18 Range/Units 16:25 20:55 06:19 RBC 3.32 L (4.30-5.90) m/uL Hgb 8.1 L (13.0-17.5) gm/dL Hct 27.9 L (39.0-53.0) % MCH 24.3 L (25.0-35.0) pg MCHC 28.8 L (31.0-37.0) g/dL RDW 19.5 H (11.5-15.5) % Plt Count 118 L (150-450) k/uL Lymphocytes # 0.9 L (1.0-4.8) k/uL Sodium (137-145) mmol/L POC Glucose (mg/dL) 121 H 114 H (75-99) mg/dL 10/25/18 10/25/18 Range/Units 06:19 11:49 RBC (4.30-5.90) m/uL Hgb (13.0-17.5) gm/dL Hct (39.0-53.0) % MCH (25.0-35.0) pg MCHC (31.0-37.0) g/dL RDW (11.5-15.5) % Plt Count (150-450) k/uL Lymphocytes # (1.0-4.8) k/uL Sodium 133 L (137-145) mmol/L POC Glucose (mg/dL) 103 H (75-99) mg/dL Assessment and Plan Assessment: -Congestive heart failure, chronic systolic dysfunction with acute exacerbation,-severe ischemic cardiomyopathy, EF less than 20%, status post left thorascopy with LV lead placement, upgraded dual-chamber pacemaker to biv entricular pacemaker. -CAD with history of AL, CABG -Mitral regurgitation, +2-3 -COPD without any acute exacerbation -Chronic persistent atrial fibrillation, rate controlled -COPD without any acute exacerbation -Hypertension -Hyperlipidemia -Hyponatremia hypervolemic expected to improve with treatment of heart failure -Nicotine dependence Plan: Continue on current medication regime ,monitoring and symptomatic treatment.Aggressive pulmonary toileting.as mentioned above chest tube removed this morning, Eliquis resumed. Entresto, beta hermilo, diuretics as per cardiology. Further recommendations to follow. The impression and plan of care has been dictated as directed. : I performed a history and examination of this patient, discussed the same with the dictator. I agree with the dictator's note ,documented as a scribe. Any additional findings or plans will be noted.
[2018-10-25 20:55] LABS: Glucose,Whole Blood 154 mg/dL (75-99)
[2018-10-26] MEDS: HYDROcodone/APAP 5-325MG 1 EACH TAB PO PRN ×4 (01:49→19:50)
[2018-10-26 05:57] LABS: Glucose,Whole Blood 105 mg/dL (75-99)
[2018-10-26] MEDS: INSULIN ASPART (NovoLOG) 100 UNIT/ML VIAL SQ SCH ×4 (06:14→21:06)
[2018-10-26 07:30] LABS: Anisocytosis Moderate; Basophils % (A) 1 %; Eosinophils # (A) 0.2 k/uL (0-0.7); Eosinophils % (A) 3 %; HCT 28.1 % (39.0-53.0); HGB 8.3 gm/dL (13.0-17.5); Hypochromasia Marked; Lymphocytes % (A) 18 %; MCH 24.8 pg (25.0-35.0); MCHC 29.5 g/dL (31.0-37.0); MCV 83.9 fL (80.0-100.0); Mean Platelet Volume 7.3; Microcytosis Slight; Monocytes # (A) 0.4 k/uL (0-1.0); Monocytes % (A) 8 %; Neutrophils % (A) 69 %; Platelet Count 132 k/uL (150-450); RBC 3.35 m/uL (4.30-5.90); RDW 20.4 % (11.5-15.5); WBC 5.8 k/uL (3.8-10.6)
[2018-10-26 07:45] LABS: Anion Gap 5 mmol/L; Blood Urea Nitrogen 13 mg/dL (9-20); Carbon Dioxide 27 mmol/L (22-30); Chloride 103 mmol/L (98-107); Glucose 88 mg/dL (74-99); Potassium 4.7 mmol/L (3.5-5.1); Sodium 135 mmol/L (137-145)
[2018-10-26] MEDS: IPRATROPIUM-ALBUTEROL 3 ML NEB INHALATION SCH ×4 (09:01→20:54)
[2018-10-26] MEDS: SYMBICORT 160-4.5 MCG INHALER INHALATION SCH ×2 (09:02→20:54)
[2018-10-26] MEDS: ATORVASTATIN 20 MG TAB PO SCH (10:08)
[2018-10-26] MEDS: APIXABAN 5 MG TAB PO SCH ×2 (10:08→21:07)
[2018-10-26] MEDS: METOPROLOL SUCCINATE (ER) 25 MG TAB.ER.24H PO SCH (10:09)
[2018-10-26] MEDS: FUROSEMIDE 40 MG TAB PO SCH (10:09)
[2018-10-26] MEDS: SPIRONOLACTONE 25 MG TAB PO SCH (10:10)
[2018-10-26] MEDS: SACUBITRIL/VALSARTAN 24 MG-26 MG TABLET PO SCH ×2 (10:10→21:07)
[2018-10-26] MEDS: TAMSULOSIN 0.4 MG CAP.ER.24H PO SCH (10:12)
[2018-10-26] MEDS: diphenhydrAMINE 2% CREAM 28.4 GM TUBE TOPICAL SCH ×3 (10:13→21:21)
[2018-10-26 11:15] LABS: Glucose,Whole Blood 116 mg/dL (75-99)
[2018-10-26] MEDS: MAGNESIUM OXIDE 400 MG TAB PO SCH (11:41)
[2018-10-26] MEDS: FERROUS SULFATE 325 MG TAB PO SCH (11:41)
[2018-10-26] MEDS: ASCORBIC ACID 500 MG TAB PO SCH (11:41)
--- NOTE | 2018-10-26 16:43 | P.PN ---
Subjective Principal diagnosis: Mr. Colvin is doing well. He is afebrile 98.1F pulse rate in the 70s respirations normal blood pressure 108-59 mmHg Chest tube was removed yesterday Apixaban was restarted He is tolerating ENTRESTO White well He is on low-dose long-acting metoprolol Chest tube was removed yesterday. Minimal chest discomfort not no shortness of breath lungs sounds are reduced bilaterally with no rhonchi no crackles Soft systolic murmur at the apex Abdomen is soft nontender No lower extremity edema No JVD Resting comfortably in bed ambulating in the room Denies any dizziness lightheadedness Impression Severe ischemic cardiomyopathy with severe congestive heart failure Significant improvement with biventricular pacing and medical treatment Suggest Continue by mouth Lasix 40 mg a day, Aldactone 50 mrem by mouth daily, ENTRESTO and Toprol-XL 25 mg by mouth daily Continue apixaban 5 mg twice a day Discharge planning for tomorrow Follow-up with Dr. Moore as an outpatient in about 4 weeks Follow-up in the device clinic within 5-7 days Objective - Vital Signs Vital signs: Vital Signs Temp 98.1 F 10/26/18 11:55 Pulse 75 10/26/18 12:05 Resp 18 10/26/18 12:05 BP 108/59 10/26/18 11:55 Pulse Ox 97 10/26/18 11:55 Intake & Output 10/25/18 10/26/18 10/26/18 18:59 06:59 18:59 Intake Total 462 240 Output Total 20 1850 750 Balance 442 -1850 -510 Weight 102 kg 100.8 kg Intake: Oral 462 240 Output: Drainage 20 Left Chest 20 Urine 1850 750 Uretheral ([place]) 750 Other: Voiding Method Indwelling Catheter Indwelling Catheter Urinal # Bowel Movements 1 - Labs CBC & Chem 7: 10/26/18 06:41 10/26/18 06:41 Labs: Abnormal Lab Results - Last 24 Hours (Table) 10/25/18 10/26/18 10/26/18 Range/Units 20:54 05:55 06:41 RBC 3.35 L (4.30-5.90) m/uL Hgb 8.3 L (13.0-17.5) gm/dL Hct 28.1 L (39.0-53.0) % MCH 24.8 L (25.0-35.0) pg MCHC 29.5 L (31.0-37.0) g/dL RDW 20.4 H (11.5-15.5) % Plt Count 132 L (150-450) k/uL Sodium (137-145) mmol/L POC Glucose (mg/dL) 154 H 105 H (75-99) mg/dL 10/26/18 10/26/18 Range/Units 06:41 11:14 RBC (4.30-5.90) m/uL Hgb (13.0-17.5) gm/dL Hct (39.0-53.0) % MCH (25.0-35.0) pg MCHC (31.0-37.0) g/dL RDW (11.5-15.5) % Plt Count (150-450) k/uL Sodium 135 L (137-145) mmol/L POC Glucose (mg/dL) 116 H (75-99) mg/dL
[2018-10-26 16:53] LABS: Glucose,Whole Blood 105 mg/dL (75-99)
--- NOTE | 2018-10-26 17:47 | P.PN ---
Subjective Progress Note Date: 10/26/18 Hospital course: 63-year-old pleasant gentleman with history of COPD heart failure ejection fraction of less than 20% with an ACT was admitted to [facility] 2 days ago with shortness of breath was treated for heart failure as well as COPD patient became hypovolemic went into renal failure Lasix was held which led to have hepatic congestion heart failure exacerbation with subsequently improved w ith the dobutamine drip. Patient was also hyponatremic initial hypervolemic hyponatremia improved with IV Lasix. Patient is presently on dobutamine drip patient was transferred here to this hospital for conversion of AICD to biventricular ICD, unable to undergo this procedure because building associate was not able to access coronary sinus and the cardiothoracic was surgery was consulted, presently his heart failure is being optimized. His PERRLA and 60 twice a day of Lasix serum sodium of 125. Patient also is feeling much better not on any IV Lasix for steroids at this time. 10/21/2018 Patient is still complaining of from Little chest pain, however is improving. Patient denies dyspnea or coughing. He follow-up with Dr. Angulo as an outpatient. He is on home oxygen of 2-3 L/m. Vitals are stable, and his labs reviewed. Hemoglobin 8.3. Mildly elevated liver enzymes, sodium 132, creatin ine 0.9. Patient continue on dobutamine drip and diuretic of Lasix 80 mg by mouth twice a day. Lovenox has been provided today. Entresto is also has been added by cardiology team. Patient is scheduled for dual-chamber pacemaker to to biventricular pacemaker on 10/23/2018 10/22/2018 Patients with no chest pain. His blood pressure this morning was on the low side 84/69. Cardiology recommended to hold his blood pressure medication and stop dobutamine and give small dose of normal saline bolus. However his medication are continuing now as per cardiology recommendation. Patient is going for insertion of ventricular lead tomorrow 10/23/2018 awaiting left thoracoscopy/left ventricular epicardial lead placement with cardiothoracic surgery. Diuresing well on oral Lasix with 24-hour I&O reflecting a negative fluid balance. Maintaining O2 sats of 90s on room air. IS up to 2500. Denies chest pain, palpitations. Afebrile, normal WBC. Sodium 135 10/24/2018 yesterday he underwent left thorascopy with LV lead placement, upgraded dual-chamber pacemaker to biventricular pacemaker .tolerated procedure well. Complains of chest tube/ left pacemaker site discomfort. Left pleural chest tube to wall suction. Entresto resumed today. Diuresing well on Lasix orally with 24-hour I&O reflecting a negative fluid balance. Breathing improving, maintaining O2 sats in the high 90s on room air. IS up to 2000. Afebrile. 10/25/2018 chest x-ray reporting new trace right pleural effusion, stable left subcutaneous emphysema, left basilar linear atelectasis, no residual pn eumothorax.chest tube discontinued. Tolerated well. Reports significant improvement in pacemaker site/prior chest tube site discomfort. Denies chest pain, palpitations or increasing shortness of breath. Anticoagulation resumed with Eliquis post chest tube removal. Continues to diurese well on oral Lasix with 24-hour I&O reflecting a negative fluid balance. Maintained on nebulized bronchodilators, Symbicort, maintaining O2 sats in the high 90s on 2 L nasal cannula. Incentive spirometer up to 2500. Hemoglobin 8.1. Blood sugars controlled. Sodium 133. 10/26/2018 maintained on beta hermilo, Lasix, Aldactone, Entresto,VSS with current systolic blood pressure in the low 100s, heart rate 70s. Anticoagulated on Eliquis. Chest discomfort improving(chest tube discontinued yesterday). R eports ambulating, tolerated exertion well. Denies chest pain, palpitations or increasing shortness of breath. Denies lightheadedness dizziness or focal deficits. Objective - Vital Signs Vital signs: Vital Signs Temp 98.1 F 10/26/18 16:00 Pulse 81 10/26/18 16:59 Resp 16 10/26/18 16:59 BP 106/56 10/26/18 16:00 Pulse Ox 97 10/26/18 16:00 Intake & Output 10/25/18 10/26/18 10/26/18 18:59 06:59 18:59 Intake Total 462 240 Output Total 20 1850 750 Balance 442 -0430 -510 Weight 102 kg 100.8 kg Intake: Oral 462 240 Output: Drainage 20 Left Chest 20 Urine 1850 750 Uretheral (Arteaga) 750 Other: Voiding Method Indwelling Catheter Indwelling Catheter Urinal # Bowel Movements 1 - Exam GENERAL: The patient is sitting up at side of bed, alert and oriented x3, no acute distress. HEENT: Pupils are round and equally reacting to light. EOMI. No scleral icterus. No conjunctival pallor. Normocephalic, atraumatic. CARDIOVASCULAR: S1 and S2 present. Systolic murmur, no rubs, or gallops. No JVD. PULMONARY: Bilateral bases diminished, no rhonchi, no wheezing, no crackles. ABDOMEN: Soft, nontender, nondistended, normoactive bowel sounds. No palpable organomegaly. EXTREMITIES: No cyanosis, clubbing, positive pedal edema. NEUROLOGICAL: Gross neurological examination did not reveal any focal deficits. SKIN: No rashes. - Labs CBC & Chem 7: 10/26/18 06:41 10/26/18 06:41 Labs: Abnormal Lab Results - Last 24 Hours (Table) 10/25/18 10/26/18 10/26/18 Range/Units 20:54 05:55 06:41 RBC 3.35 L (4.30-5.90) m/uL Hgb 8.3 L (13.0-17.5) gm/dL Hct 28.1 L (39.0-53.0) % MCH 24.8 L (25.0-35.0) pg MCHC 29.5 L (31.0-37.0) g/dL RDW 20.4 H (11.5-15.5) % Plt Count 132 L (150-450) k/uL Sodium (137-145) mmol/L POC Glucose (mg/dL) 154 H 105 H (75-99) mg/dL 10/26/18 10/26/18 10/26/18 Range/Units 06:41 11:14 16:51 RBC (4.30-5.90) m/uL Hgb (13.0-17.5) gm/dL Hct (39.0-53.0) % MCH (25.0-35.0) pg MCHC (31.0-37.0) g/dL RDW (11.5-15.5) % Plt Count (150-450) k/uL Sodium 135 L (137-145) mmol/L POC Glucose (mg/dL) 116 H 105 H (75-99) mg/dL Assessment and Plan Assessment: -Congestive heart failure, chronic systolic dysfunction with acute exacerbation,-severe ischemic cardiomyopathy, EF less than 20%, status post left thorascopy with LV lead placement, upgraded dual-chamber pacemaker to biventricular pacemaker. -CAD with history of IA, CABG -Mitral regurgitation, +2-3 -COPD without any acute exacerbation -Chronic persistent atrial fibrillation, rate controlled -COPD without any acute exacerbation -Hypertension -Hyperlipidemia -Hyponatremia hypervolemic expected to improve with treatment of heart failure -Nicotine dependence Plan: Continue on current medication regime , Entresto, beta hermilo, diuretics,monitoring and symptomatic treatment. Increase ambulation as tolerated. Discharge planning in progress for tomorrow pending cardiology clearance. Further recommendations to follow. The impression and plan of care has been dictated as directed. : I performed a history and examination of this patient, discussed the same with the dictator. I agree with the dictator's note ,documented as a scribe. Any additional findings or plans will be noted.
[2018-10-26 20:36] LABS: Glucose,Whole Blood 298 mg/dL (75-99)
[2018-10-27] MEDS: HYDROcodone/APAP 5-325MG 1 EACH TAB PO PRN ×4 (01:14→20:00)
[2018-10-27 06:07] LABS: Glucose,Whole Blood 111 mg/dL (75-99)
[2018-10-27] MEDS: INSULIN ASPART (NovoLOG) 100 UNIT/ML VIAL SQ SCH ×4 (06:13→21:45)
[2018-10-27] MEDS: ATORVASTATIN 20 MG TAB PO SCH (08:04)
[2018-10-27] MEDS: TAMSULOSIN 0.4 MG CAP.ER.24H PO SCH (08:04)
[2018-10-27] MEDS: SACUBITRIL/VALSARTAN 24 MG-26 MG TABLET PO SCH ×2 (08:04→21:45)
[2018-10-27] MEDS: APIXABAN 5 MG TAB PO SCH ×2 (08:04→21:45)
[2018-10-27] MEDS: METOPROLOL SUCCINATE (ER) 25 MG TAB.ER.24H PO SCH (08:05)
[2018-10-27] MEDS: FUROSEMIDE 40 MG TAB PO SCH ×3 (08:05→16:15)
[2018-10-27] MEDS: SPIRONOLACTONE 25 MG TAB PO SCH (08:05)
[2018-10-27] MEDS: diphenhydrAMINE 2% CREAM 28.4 GM TUBE TOPICAL SCH ×2 (08:07→21:52)
[2018-10-27] MEDS: IPRATROPIUM-ALBUTEROL 3 ML NEB INHALATION SCH ×4 (09:20→20:16)
[2018-10-27] MEDS: SYMBICORT 160-4.5 MCG INHALER INHALATION SCH ×2 (09:20→20:17)
[2018-10-27] MEDS: HEPARIN SODIUM,PORCINE 5,000 UNIT/ML 1 ML VIAL SQ SCH (10:21)
[2018-10-27] MEDS: DEXAMETHASONE SOD PHOSPHATE 10 MG/ML 1 ML VIAL IV ONE (10:22)
[2018-10-27 11:14] LABS: Anisocytosis Moderate; Basophils % (A) 1 %; Eosinophils # (A) 0.2 k/uL (0-0.7); Eosinophils % (A) 3 %; HCT 29.3 % (39.0-53.0); HGB 8.7 gm/dL (13.0-17.5); Hypochromasia Marked; Lymphocytes # (A) 0.8 k/uL (1.0-4.8); Lymphocytes % (A) 14 %; MCH 24.2 pg (25.0-35.0); MCHC 29.6 g/dL (31.0-37.0); MCV 81.9 fL (80.0-100.0); Mean Platelet Volume 8.1; Microcytosis Slight; Monocytes # (A) 0.5 k/uL (0-1.0); Monocytes % (A) 9 %; Neutrophils % (A) 71 %; Platelet Count 155 k/uL (150-450); RBC 3.58 m/uL (4.30-5.90); RDW 21.1 % (11.5-15.5); WBC 5.6 k/uL (3.8-10.6)
[2018-10-27 11:25] LABS: Anion Gap 7 mmol/L; Blood Urea Nitrogen 15 mg/dL (9-20); Carbon Dioxide 27 mmol/L (22-30); Chloride 102 mmol/L (98-107); Glucose 107 mg/dL (74-99); Potassium 4.7 mmol/L (3.5-5.1); Sodium 136 mmol/L (137-145)
[2018-10-27] MEDS: MAGNESIUM OXIDE 400 MG TAB PO SCH (11:39)
[2018-10-27] MEDS: FERROUS SULFATE 325 MG TAB PO SCH (11:39)
[2018-10-27] MEDS: ASCORBIC ACID 500 MG TAB PO SCH (11:40)
[2018-10-27 11:53] LABS: Glucose,Whole Blood 118 mg/dL (75-99)
[2018-10-27 12:45] VITALS: BMI 30.2
[2018-10-27 16:50] LABS: Glucose,Whole Blood 114 mg/dL (75-99)
--- NOTE | 2018-10-27 17:45 | P.PN ---
Subjective Progress Note Date: 10/27/18 Hospital course: 63-year-old pleasant gentleman with history of COPD heart failure ejection fraction of less than 20% with an ACT was admitted to [facility] 2 days ago with shortness of breath was treated for heart failure as well as COPD patient became hypovolemic went into renal failure Lasix was held which led to have hepatic congestion heart failure exacerbation with subsequently improved w ith the dobutamine drip. Patient was also hyponatremic initial hypervolemic hyponatremia improved with IV Lasix. Patient is presently on dobutamine drip patient was transferred here to this hospital for conversion of AICD to biventricular ICD, unable to undergo this procedure because director of respiratory therapy was not able to access coronary sinus and the cardiothoracic was surgery was consulted, presently his heart failure is being optimized. His PERRLA and 60 twice a day of Lasix serum sodium of 125. Patient also is feeling much better not on any IV Lasix for steroids at this time. 10/21/2018 Patient is still complaining of from Little chest pain, however is improving. Patient denies dyspnea or coughing. He follow-up with Dr. Angulo as an outpatient. He is on home oxygen of 2-3 L/m. Vitals are stable, and his labs reviewed. Hemoglobin 8.3. Mildly elevated liver enzymes, sodium 132, creatin ine 0.9. Patient continue on dobutamine drip and diuretic of Lasix 80 mg by mouth twice a day. Lovenox has been provided today. Entresto is also has been added by cardiology team. Patient is scheduled for dual-chamber pacemaker to to biventricular pacemaker on 10/23/2018 10/22/2018 Patients with no chest pain. His blood pressure this morning was on the low side 84/69. Cardiology recommended to hold his blood pressure medication and stop dobutamine and give small dose of normal saline bolus. However his medication are continuing now as per cardiology recommendation. Patient is going for insertion of ventricular lead tomorrow 10/23/2018 awaiting left thoracoscopy/left ventricular epicardial lead placement with cardiothoracic surgery. Diuresing well on oral Lasix with 24-hour I&O reflecting a negative fluid balance. Maintaining O2 sats of 90s on room air. IS up to 2500. Denies chest pain, palpitations. Afebrile, normal WBC. Sodium 135 10/24/2018 yesterday he underwent left thorascopy with LV lead placement, upgraded dual-chamber pacemaker to biventricular pacemaker .tolerated procedure well. Complains of chest tube/ left pacemaker site discomfort. Left pleural chest tube to wall suction. Entresto resumed today. Diuresing well on Lasix orally with 24-hour I&O reflecting a negative fluid balance. Breathing improving, maintaining O2 sats in the high 90s on room air. IS up to 2000. Afebrile. 10/25/2018 chest x-ray reporting new trace right pleural effusion, stable left subcutaneous emphysema, left basilar linear atelectasis, no residual pn eumothorax.chest tube discontinued. Tolerated well. Reports significant improvement in pacemaker site/prior chest tube site discomfort. Denies chest pain, palpitations or increasing shortness of breath. Anticoagulation resumed with Eliquis post chest tube removal. Continues to diurese well on oral Lasix with 24-hour I&O reflecting a negative fluid balance. Maintained on nebulized bronchodilators, Symbicort, maintaining O2 sats in the high 90s on 2 L nasal cannula. Incentive spirometer up to 2500. Hemoglobin 8.1. Blood sugars controlled. Sodium 133. 10/26/2018 maintained on beta hermilo, Lasix, Aldactone, Entresto,VSS with current systolic blood pressure in the low 100s, heart rate 70s. Anticoagulated on Eliquis. Chest discomfort improving(chest tube discontinued yesterday). R eports ambulating, tolerated exertion well. Denies chest pain, palpitations or increasing shortness of breath. Denies lightheadedness dizziness or focal deficits. 10/27/2018 increased leg edema, discharge placed on hold. Currently diuresing on oral Lasix. Maintaining O2 sats in the high 90s on room air. Systolic blood pressure in the low 100s. Denies chest pain, palpitations or increasing s hortness of breath. Objective - Vital Signs Vital signs: Vital Signs Temp 98.2 F 10/27/18 15:45 Pulse 82 10/27/18 16:31 Resp 18 10/27/18 16:31 BP 100/59 10/27/18 15:45 Pulse Ox 98 10/27/18 16:34 Intake & Output 10/26/18 10/27/18 10/27/18 18:59 06:59 18:59 Intake Total 240 480 Output Total 750 Balance -510 480 Weight 100.9 kg 100.9 kg Intake: Oral 240 480 Output: Urine 750 Uretheral (Ar[place]aga) 750 Other: Voiding Method Urinal Toilet Toilet Urinal Urinal # Voids 1 # Bowel Movements 1 2 - Exam GENERAL: The patient is sitting up in bed, alert and oriented x3, no acute distress. HEENT: Pupils are round and equally reacting to light. EOMI. No scleral icterus. No conjunctival pallor. Normocephalic, atraumatic. CARDIOVASCULAR: S1 and S2 present. Systolic murmur, no rubs, or gallops. No JVD. PULMONARY: Bilateral bases diminished, no rhonchi, no wheezing, no crackles. ABDOMEN: Soft, nontender, nondistended, normoactive bowel sounds. No palpable organomegaly. EXTREMITIES: No cyanosis, clubbing, positive bilateral lower extremity edema. NEUROLOGICAL: Gross neurological examination did not reveal any focal deficits. SKIN: No rashes. - Labs CBC & Chem 7: 10/27/18 11:00 10/27/18 11:00 Labs: Abnormal Lab Results - Last 24 Hours (Table) 10/26/18 10/27/18 10/27/18 Range/Units 20:34 06:06 11:00 RBC (4.30-5.90) m/uL Hgb (13.0-17.5) gm/dL Hct (39.0-53.0) % MCH (25.0-35.0) pg MCHC (31.0-37.0) g/dL RDW (11.5-15.5) % Lymphocytes # (1.0-4.8) k/uL Sodium 136 L (137-145) mmol/L Glucose 107 H (74-99) mg/dL POC Glucose (mg/dL) 298 H 111 H (75-99) mg/dL 10/27/18 10/27/18 10/27/18 Range/Units 11:00 11:34 16:48 RBC 3.58 L (4.30-5.90) m/uL Hgb 8.7 L (13.0-17.5) gm/dL Hct 29.3 L (39.0-53.0) % MCH 24.2 L (25.0-35.0) pg MCHC 29.6 L (31.0-37.0) g/dL RDW 21.1 H (11.5-15.5) % Lymphocytes # 0.8 L (1.0-4.8) k/uL Sodium (137-145) mmol/L Glucose (74-99) mg/dL POC Glucose (mg/dL) 118 H 114 H (75-99) mg/dL Assessment and Plan Assessment: -Congestive heart failure, chronic systolic dysfunction with acute exacerbation,-severe ischemic cardiomyopathy, EF less than 20%, status post left thorascopy with LV lead placement, upgraded dual-chamber pacemaker to biventricular pacemaker. -CAD with history of CO, CABG -Mitral regurgitation, +2-3 -COPD without any acute exacerbation -Chronic persistent atrial fibrillation, rate controlled -COPD without any acute exacerbation -Hypertension -Hyperlipidemia -Hyponatremia hypervolemic expected to improve with treatment of heart failure -Nicotine dependence Plan: Continue on current medication regime , Entresto, beta hermilo, diuretics,monitoring and symptomatic treatment. Diuretics as per cardiology. Discharge planning in progress for tomorrow pending cardiology clearance. Further recommendations to follow. The impression and plan of care has been dictated as directed. : I performed a history and examination of this patient, discussed the same with the dictator. I agree with the dictator's note ,documented as a scribe. Any additional findings or plans will be noted.
[2018-10-27 21:00] LABS: Glucose,Whole Blood 140 mg/dL (75-99)
[2018-10-28 00:09] LABS: Albumin 3.4 g/dL (3.5-5.0); Bilirubin, Delta 0.5 mg/dL (0.0-0.2); Bilirubin,Unconjugated 0.7 mg/dL (0.0-1.1); Total Bilirubin 1.2 mg/dL (0.2-1.3); Total Protein 5.6 g/dL (6.3-8.2)
[2018-10-28] MEDS: traMADol 50 MG TAB PO PRN (00:44)
[2018-10-28] MEDS: HYDROcodone/APAP 5-325MG 1 EACH TAB PO PRN ×3 (02:05→13:59)
[2018-10-28 02:31] VITALS: RESP 18
[2018-10-28 06:05] LABS: Glucose,Whole Blood 118 mg/dL (75-99)
[2018-10-28] MEDS: INSULIN ASPART (NovoLOG) 100 UNIT/ML VIAL SQ SCH ×2 (06:08→12:05)
[2018-10-28] MEDS: DOBUTamine DRIP 500 MG in DEXTROSE/WATER 1 250ML.BAG IV SCH (07:35)
[2018-10-28] MEDS: SACUBITRIL/VALSARTAN 24 MG-26 MG TABLET PO SCH (08:06)
[2018-10-28] MEDS: APIXABAN 5 MG TAB PO SCH (08:06)
[2018-10-28] MEDS: FUROSEMIDE 40 MG TAB PO SCH (08:06)
[2018-10-28] MEDS: TAMSULOSIN 0.4 MG CAP.ER.24H PO SCH (08:06)
[2018-10-28] MEDS: SPIRONOLACTONE 25 MG TAB PO SCH (08:06)
[2018-10-28] MEDS: diphenhydrAMINE 2% CREAM 28.4 GM TUBE TOPICAL SCH (08:08)
--- NOTE | 2018-10-28 08:24 | P.CRDCN ---
History of Present Illness History of present illness: Mr. Colvin is doing very well. He is sitting at the edge of the bed he looks extremely comfortable no respiratory distress no chest discomfort other than the incisional sites No lower extremity edema today. He Proctocort up her urine when I increased the dose of Lasix to 40 mm twice daily yesterday No shortness of breath and minimal cough Blood pressure 108/56 and 99-57 mmHg heart rate 80 beats a minute respirations normal nonlabored afebrile 97.7F No JVD no lower extremity edema Breath sounds are reduced bilaterally but there are no crackles no rhonchi Heart sounds are soft there's a soft apical systolic murmur Abdomen is soft Most of his incisions are healing well except for one and I was asked the nurse to call CT surgery to address that Labs yesterday hemoglobin 8.7 Potassium 4.7 Renal function stable now for many days BUN 15 creatinine 0.8 AST 25 ALT 43 Impression Severe ischemic cardio myopathy with a dilated left ventricle and 2+ mitral regurgitation Persistent atrial fibrillation Complete heart block 100% RV pacing Acute on chronic CHF exacerbation class III unstable Improved after IV dobutamine and IV Lasix followed by upgrade to a biventricular ICD Now maintained well on ENTRESTO 24/26 g by mouth twice a day Tolerating beta blockers at a low dose Currently on Lasix 40 mg twice daily and Aldactone Status post upgrade to a biventricular ICD on this admission for heart failure management Suggest Continue ELIQUIS 5 g twice daily Baby aspirin 81 mg daily for Coronary artery disease Toprol-XL 25 mg by mouth daily at noontime ENTRESTO 24/26 mg grams by mouth twice a day Aldactone 50 g by mouth daily Lasix 40 mg twice daily Increase atorvastatin to 40 g by mouth daily ICD clinic follow-up and follow-up with Dr. [place] within one week of discharge Patient may be discharged home today if okay with internal medicine Past Medical History Past Medical History: Coronary Artery Disease (CAD), Chest Pain / Angina, Heart Failure, COPD, Diabetes Mellitus, Hyperlipidemia, Myocardial Infarction (IN), Osteoarthritis (OA) Additional Past Medical History / Comment(s): Coronary artery disease with a previous bypass surgery, ischemic cardiomyopathy with ejection fraction of less than 20%,HOME 02 2-2.5 LITERS AT HS, COPD, obstructive sleep apnea with an AHI of 24 currently on auto CPAP unit, obesity, hypertension, AICD placement for ischemic cardiomyopathy, Cardiomyopathy, osteoarthritis, diabetes mellitus, hyperlipidemia, hypertension.past fx rt leg.tinnitus Last Myocardial Infarction Date:: UNSURE History of Any Multi-Drug Resistant Organisms: None Reported Past Surgical History: AICD, Coronary Bypass/CABG, Heart Catheterization, Orthopedic Surgery Additional Past Surgical History / Comment(s): Pacemaker and AICD- 10/2013, CABG 1 vessel many yrs ago per pt, BILATERAL SHOULDER SURGERY , steel alcides in rt leg d/t fracture, bilat shoulders Past Anesthesia/Blood Transfusion Reactions: No Reported Reaction Type of Cardiac Device: Permanent Pacemaker, AICD Device Placement Date:: Smoking Status: Current every day smoker - Past Family History Mother History Unknown: Yes Father Family Medical History: Myocardial Infarction (IN) Additional Family Medical History / Comment(s): Father of a IN at the age of 56yrs. Brother(s) Family Medical History: Cancer Medications and Allergies Home Medications Medication Instructions Recorded Confirmed Type Lisinopril [Zestril] 2.5 mg PO DAILY #30 tab 09/16/17 10/19/18 Rx metFORMIN HCL [Glucophage] 500 mg PO BID #60 tab 12/24/17 10/19/18 Rx Albuterol Inhaler [Ventolin Hfa 2 puff INHALATION RT-Q4H PRN 10/19/18 10/19/18 History Inhaler] Albuterol Nebulized [Ventolin 2.5 mg INHALATION RT-QID PRN 10/19/18 10/19/18 History Nebulized] Apixaban [Eliquis] 5 mg PO BID 10/19/18 10/19/18 History Atorvastatin [Lipitor] 20 mg PO DAILY 10/19/18 10/19/18 History Furosemide [Lasix] 60 mg PO BID 10/19/18 10/19/18 History Metoprolol Succinate [Kapspargo 50 mg PO DAILY 10/19/18 10/19/18 History Sprinkle] Allergies Allergy/AdvReac Type Severity Reaction Status Date / Time Latex, Natural Rubber Allergy Rash/Hives Verified 10/23/18 13:02 levofloxacin [From Levaquin] Allergy Rash/Hives Verified 10/23/18 13:02 mold Allergy Rash/Hives Verified 10/23/18 13:02 prednisone Allergy Rash/Hives Verified 10/23/18 13:02 STEROIDS Allergy Rash/Hives Uncoded 10/23/18 13:02 Physical Exam Vitals: Vital Signs Temp Pulse Pulse Pulse Resp BP BP 10/28/18 04:00 80 18 10/28/18 00:00 97.7 F 80 18 10/27/18 20:26 87 16 10/27/18 20:17 80 16 10/27/18 20:15 10/27/18 20:00 97.7 F 80 80 18 10/27/18 19:55 97.7 F 78 14 85/50 10/27/18 16:34 10/27/18 16:31 82 18 10/27/18 16:30 80 14 10/27/18 15:45 98.2 F 80 14 100/59 10/27/18 13:18 84 10/27/18 13:08 80 10/27/18 12:00 80 18 10/27/18 09:36 80 10/27/18 09:21 76 BP Pulse Ox 10/28/18 04:00 108/56 93 L 10/28/18 00:00 99/57 98 10/27/18 20:26 10/27/18 20:17 10/27/18 20:15 103/55 10/27/18 20:00 87/50 96 10/27/18 19:55 96 10/27/18 16:34 98 10/27/18 16:31 10/27/18 16:30 10/27/18 15:45 99 10/27/18 13:18 10/27/18 13:08 10/27/18 12:00 127/57 98 10/27/18 09:36 10/27/18 09:21 Intake and Output 10/27/18 10/28/18 10/28/18 22:59 06:59 14:59 Intake Total 360 Balance 360 Intake: Oral 360 Other: Voiding Method Toilet Toilet Urinal Urinal Weight 99.7 kg Results 10/27/18 11:00 10/27/18 11:00 Cardiac Enzymes 10/27/18 Range/Units 23:21 AST 25 (17-59) U/L CBC 10/27/18 Range/Units 11:00 WBC 5.6 (3.8-10.6) k/uL RBC 3.58 L (4.30-5.90) m/uL Hgb 8.7 L (13.0-17.5) gm/dL Hct 29.3 L (39.0-53.0) % Plt Count 155 (150-450) k/uL Comprehensive Metabolic Panel 10/27/18 10/27/18 Range/Units 11:00 23:21 Sodium 136 L (137-145) mmol/L Potassium 4.7 (3.5-5.1) mmol/L Chloride 102 (98-107) mmol/L Carbon Dioxide 27 (22-30) mmol/L BUN 15 (9-20) mg/dL Creatinine 0.82 (0.66-1.25) mg/dL Glucose 107 H (74-99) mg/dL Calcium 9.0 (8.4-10.2) mg/dL Unconjugated Bilirubin 0.7 (0.0-1.1) mg/dL AST 25 (17-59) U/L ALT 43 (21-72) U/L Alkaline Phosphatase 103 (38-126) U/L Total Protein 5.6 L (6.3-8.2) g/dL Albumin 3.4 L (3.5-5.0) g/dL Current Medications Generic Name Dose Route Start Last Admin Trade Name Freq PRN Reason Stop Dose Admin Hydrocodone Bitart/Acetaminophen 1 each 10/24/18 20:54 10/28/18 08:07 [place] 5-325 PO 1 each Q6HR PRN Administration SEVERE Pain Albuterol Sulfate 2.5 mg 10/19/18 14:27 Ventolin Nebulized INHALATION RT-Q4H PRN shortness of breath Albuterol/Ipratropium 3 ml 10/19/18 16:00 10/27/18 20:16 Duoneb 0.5 Mg-3 Mg/3 Ml Soln INHALATION 3 ml RT-QID BRO Administration Apixaban 5 mg 10/26/18 09:00 10/28/18 08:06 Eliquis PO 5 mg BID BRO Administration Ascorbic Acid 500 mg 10/22/18 12:00 10/27/18 11:40 Vitamin C PO 500 mg DAILY@1200 BRO Administration Atorvastatin Calcium 40 mg 10/28/18 09:00 10/28/18 08:07 Lipitor PO 40 mg DAILY BRO Administration Bisacodyl 10 mg 10/23/18 17:39 Dulcolax RECTAL DAILY PRN Constipation Budesonide/Formoterol Fumarate 2 puff 10/19/18 20:00 10/27/18 20:17 Symbicort 160-4.5 Mcg Inhaler INHALATION 2 puff RT-BID BRO Administration Ferrous Sulfate 325 mg 10/22/18 12:30 10/27/18 11:39 Feosol PO 325 mg W/LUNCH BRO Administration Furosemide 40 mg 10/27/18 16:00 10/28/18 08:06 Lasix PO 40 mg BID@0900,1600 [facility] Administration Insulin Aspart 0 unit 10/19/18 17:30 10/28/18 06:08 Novolog SQ Not Given ACHS [facility] Protocol Magnesium Oxide 400 mg 10/20/18 12:00 10/27/18 11:39 Mag-Ox PO 400 mg 1200 [facility] Administration Metoprolol Succinate 25 mg 10/28/18 12:00 Toprol Xl PO 1200 [facility] Sacubitril/Valsartan 1 each 10/25/18 09:00 10/28/18 08:06 Entresto 24 Mg-26 Mg Tablet PO 1 each BID [facility] Administration Sodium Chloride 10 ml 10/19/18 21:00 10/28/18 08:07 Saline Flush IV 10 ml Q12HR [facility] Administration Spironolactone 50 mg 10/20/18 09:00 10/28/18 08:06 Aldactone PO 50 mg DAILY [facility] Administration Tamsulosin HCl 0.4 mg 10/20/18 09:00 10/28/18 08:06 Flomax PO 0.4 mg DAILY [facility] Administration Tramadol HCl 50 mg 10/24/18 08:03 10/28/18 00:44 Ultram PO 50 mg QID PRN Administration MODERATE pain Zinc Acetate/Diphenhydramine 1 applic 10/20/18 21:00 10/28/18 08:08 Benadryl Cream TOPICAL 1 applic BID [facility] Administration Intake and Output 10/27/18 10/28/18 10/28/18 22:59 06:59 14:59 Intake Total 360 Balance 360 Intake: Oral 360 Other: Voiding Method Toilet Toilet Urinal Urinal Weight 99.7 kg 10/27/18 11:00 10/27/18 11:00
[2018-10-28 08:40] VITALS: TEMP 97.9
[2018-10-28] MEDS ORDERED: ATORVASTATIN 40 MG TAB PO SCH (09:00)
[2018-10-28] MEDS: IPRATROPIUM-ALBUTEROL 3 ML NEB INHALATION SCH ×2 (09:10→13:15)
[2018-10-28] MEDS: SYMBICORT 160-4.5 MCG INHALER INHALATION SCH (09:10)
[2018-10-28] MEDS: FERROUS SULFATE 325 MG TAB PO SCH (11:35)
[2018-10-28] MEDS: ASCORBIC ACID 500 MG TAB PO SCH (11:35)
[2018-10-28] MEDS: MAGNESIUM OXIDE 400 MG TAB PO SCH (11:35)
[2018-10-28 11:40] VITALS: BP 91/67
[2018-10-28] MEDS ORDERED: METOPROLOL SUCCINATE (ER) 25 MG TAB.ER.24H PO SCH (12:00)
[2018-10-28 12:01] LABS: Glucose,Whole Blood 89 mg/dL (75-99)
[2018-10-28 13:18] VITALS: PULSE 84
--- NOTE | 2018-10-28 16:03 | P.DS ---
Providers Date of admission: 10/19/18 13:50 Attending physician: Rishi An Consults: 10/19/18 15:34 Consult Physician Routine Consulting Provider: Carolyn Pope Consult Reason/Comments: Pacer upgrade Do you want consulting provider notified?: Already Contacted Placement Type Exists?: Yes 10/19/18 15:43 Consult Physician Routine Consulting Provider: Jm Hernández Consult Reason/Comments: lead placement Do you want consulting provider notified?: Already Contacted 10/20/18 06:43 Consult Physician Routine Consulting Provider: Gisella Iraheta Consult Reason/Comments: pulm management, continuing care from [facility] Do you want consulting provider notified?: Yes Primary care physician: Stated None Hospital Course: Assessment: -Congestive heart failure, chronic systolic dysfunction with acute exacerbation,-severe ischemic cardiomyopathy, EF less than 20%, status post left thorascopy with LV lead placement, upgraded dual-chamber pacemaker to biventricular pacemaker. -CAD with history of OK, CABG -Mitral regurgitation, +2-3 -COPD without any acute exacerbation -Chronic persistent atrial fibrillation, rate controlled -COPD without any acute exacerbation -Hypertension -Hyperlipidemia -Hyponatremia hypervolemic expected to improve with treatment of heart failure -Nicotine dependence Hospital course 63-year-old pleasant gentleman with history of COPD heart failure ejection fract ion of less than 20% with an AICD was admitted to [facility] 2 days EALIER with shortness of breath was treated for heart failure as well as COPD patient became hypovolemic went into renal failure Lasix was held which led to have hepatic congestion heart failure exacerbation with subsequently improved with the dobutamine drip. Patient was also hyponatremic initial hypervolemic hyponatremia improved with IV Lasix. SODIUM ON ADMISSION TO THIS HOSPITAL WAS 32, WENT UP TO 136 UPON DISCHARGE. Patient is presently on dobutamine drip patient was transferred here to this hospital for conversion of AICD to biventricular ICD, unable to undergo this procedure because chip machine operator was not able to access coronary sinus and the cardiothoracic was surgery was consulted, presently his heart failure is being optimized. after the procedure patient developed. Left-sided chest tube was placed after the procedure. Which was taken off2 days ago. Patient came back to his baseline. His breathing quietly. No dyspnea. No chest pain. patient also has been evaluated by chip machine operator, his medication was adjusted by the chip machine operator Dr. Gamez. Patient was cleared by chip machine operator today for discharge. Patient himself feels ready to go home. Problems and management plan was discussed with the patient and he verbalized understanding and acceptance Patient was found stable and can discharge home however he needs follow-up as an outpatient Gen: patient is a AAOx3, no distress CVS: S1-S2, RRR, no murmur Lungs: B/L CTA, no wheezing Abdomen: soft, no distention, no tenderness, positive bowel sounds Extremity: no leg edema or induration Time spent more than 35 minutes Plan - Discharge Summary Discharge Rx Participant: Yes New Discharge Prescriptions: New Aspirin EC [Ecotrin Low Dose] 81 mg PO DAILY #90 tablet. Sacubitril/Valsartan [Entresto 24 mg-26 mg Tablet] 1 each PO BID #180 tablet Furosemide [Lasix] 40 mg PO BID #180 tablet Atorvastatin [Lipitor] 40 mg PO DAILY #90 tablet Spironolactone 50 mg PO QAM #90 tablet Metoprolol Succinate (ER) [Toprol Xl] 25 mg PO DAILY #90 tab Tamsulosin [Flomax] 0.4 mg PO DAILY #30 cap.er.24h Ferrous Sulfate [Iron (65 MG Elemental)] 325 mg PO W/LUNCH #30 tab Continue metFORMIN HCL [Glucophage] 500 mg PO BID #60 tab Apixaban [Eliquis] 5 mg PO BID Albuterol Inhaler [Ventolin Hfa Inhaler] 2 puff INHALATION RT-Q4H PRN PRN Reason: Shortness Of Breath Albuterol Nebulized [Ventolin Nebulized] 2.5 mg INHALATION RT-QID PRN PRN Reason: Shortness Of Breath Discontinued Lisinopril [Zestril] 2.5 mg PO DAILY #30 tab Furosemide [Lasix] 60 mg PO BID Metoprolol Succinate [[place] Sprinkle] 50 mg PO DAILY Atorvastatin [Lipitor] 20 mg PO DAILY Discharge Medication List metFORMIN HCL [Glucophage] 500 mg PO BID #60 tab 12/24/17 [Rx] Albuterol Inhaler [Ventolin Hfa Inhaler] 2 puff INHALATION RT-Q4H PRN 10/19/18 [History] Albuterol Nebulized [Ventolin Nebulized] 2.5 mg INHALATION RT-QID PRN 10/19/18 [History] Apixaban [Eliquis] 5 mg PO BID 10/19/18 [History] Aspirin EC [Ecotrin Low Dose] 81 mg PO DAILY #90 tablet.dr 10/28/18 [Rx] Atorvastatin [Lipitor] 40 mg PO DAILY #90 tablet 10/28/18 [Rx] Ferrous Sulfate [Iron (65 MG Elemental)] 325 mg PO W/LUNCH #30 tab 10/28/18 [Rx] Furosemide [Lasix] 40 mg PO BID #180 tablet 10/28/18 [Rx] Metoprolol Succinate (ER) [Toprol Xl] 25 mg PO DAILY #90 tab 10/28/18 [Rx] Sacubitril/Valsartan [Entresto 24 mg-26 mg Tablet] 1 each PO BID #180 tablet 10/28/18 [Rx] Spironolactone 50 mg PO QAM #90 tablet 10/28/18 [Rx] Tamsulosin [Flomax] 0.4 mg PO DAILY #30 cap.er.24h 10/28/18 [Rx] Follow up Appointment(s)/Referral(s): Mary Merritt MD [REFERRING] - 11/03/18 1:00 pm [facility], [NON-STAFF] - As Needed Saulo Birmingham MD [STAFF PHYSICIAN] - 10/30/18 9:30 am (Device clinic appointment for removal of pacemaker dressing, then see Dr. Birmingham after pacemaker check.) Gisella Iraheta MD [STAFF PHYSICIAN] - 11/15/18 9:30 am Patient Instructions/Handouts: Heart Failure (DC), Low-Sodium Diet (DC), Pacemaker (DC) Activity/Diet/Wound Care/Special Instructions: Entresto copay is $47 - give 30 day coupon for first month Instructions following a heart rhythm device implant. 1. Keep dressing DRY for 5 DAYS. You may cover the area with Saran or Cling Wrap, prior to a shower. 2. The dressing will be removed in the Device Clinic at [facility]. Absorbable sutures were used to close the wound. 3. Avoid raising the left arm above the shoulder level. 4 week restriction 4. Avoid arm movements, like backscratching, rubbing the head, or pulling on a cord. 4 weeks restriction 5. Gentle range of motion movements of the shoulder, closest to the incision should be performed to avoid a frozen shoulder. (Pendulum exercises of the shoulder) 6. The opposite arm may be used freely. 7. Avoid driving for 7 days. 8. Avoid activities such as golfing, swimming, weed whacking, lifting more than 10 pounds weight, bowling, gymnastics and weight training/lifting. (6 weeks restriction) 9. Activities such as wood chopping with an axe, pull-ups in the gymnasium, power lifting, arc-welding, being close to home induction cooktops will always be a problem. 10. Arm sling is only a reminder not to raise the arm above the head. You do not need to keep the arm completely immobilized. Your free to move the arm and use it and for normal activities. In case of any problems, please call [facility], Xavi Flores, @ [phone], Attention: Device Clinic Cardiac medications at discharge include ELIQUIS 5 g twice daily Baby aspirin Toprol-XL 25 mg daily at noontime ENTRESTO 24/26 mg by mouth twice a day Aldactone 50 mg by mouth daily in the morning Lasix 40 mg twice daily Atorvastatin 40 mg by mouth daily Should continue with incentive spirometry Complete abstinence from all nicotine products Discharge Disposition: HOME SELF-CARE
[2018-10-30 08:32] LABS: Glucose,Whole Blood 161 mg/dL (75-99)
[2018-10-30 08:32] LABS: Glucose,Whole Blood 135 mg/dL (75-99)
--- NOTE | 2018-11-16 14:22 | P.OP ---
Date of Procedure: 10/23/18 Preoperative Diagnosis: CHF Postoperative Diagnosis: Same Procedure(s) Performed: Left thoracoscopy, placement of epicardial left ventricular lead, upgrade of ICD to bi V ICD Implants: Epicardial LV lead, biV ICD Anesthesia: ANTONIAA Surgeon: Jm Hernández Cash Reconciliation Specialist #1: Armando Benoit Estimated Blood Loss (ml): 20 IV fluids (ml): 50 Urine output (ml): 300 Pathology: none sent Condition: stable Disposition: PACU Indications for Procedure: 63-year-old male with known left ventricular failure and cardiomyopathy with widening QRS presents with recurrent heart failure. Unable to be weaned off of the remaining. He had a ICD implant place. He went to the medical lab technologist for placement of an LV lead however the coronary sinus was dissected and it was unable to place the LV lead. Surgical LV lead placement with upgrade of the ICD to biV was requested by Dr. Gamez. Operative Findings: Despite previous bypass surgery, there were no adhesions in the left pleural space and only minimal adhesions in the pericardial space. The lung itself was extremely heavily blackened from anthracotic pigmentation from chronic smoking. Excellent pacing thresholds were obtained with the biV lead. Description of Procedure: Patient was brought to the operating room, placed supine on the operating table, anesthetized and intubated with a double-lumen endotracheal tube. Tube was positioned with fiberoptic bronchoscopy. Patient was turned into the right lateral decubitus position and the left chest sterilely prepped and draped. 2 one-inch incisions were made in the posterior axillary line and carried down through skin and subcutaneous tissue and into the pleural space. Single lung ventilation was initiated. A good pneumothorax was obtained. The pericardium was examined. Pericardium anterior to the phrenic nerve overlying the left ventricle was then we could see to it. It was carefully grasped with a grasper and incised with the scissors. A quarter size opening was created. The center of this opening was viable myocardium without evidence of vessel. A [employer] epicardial lead reference #[id number] serial #[id number] was screwed into the left ventricle in this area. Good R waves were obtained of 10.8 mV. Impedance was 640 ohms. Pacing threshold was 0.8 V at 1 ms pulse width and 1 V at 0.5 ms pulse width. Small subcutaneous pocket was now created immediately adjacent to the left nipple and the lead was tunneled into this pocket. Appropriate draping of the lead around the left ventricular apex was performed to prevent tension on the lead when the patient removed his left shoulder. Lead was secured in the subcutaneous pocket with a 2-0 silk suture. Lead was coiled in this pocket and closed with skin jg. The lung was inflated under thoracoscopic visualization. A 28-Bhutanese chest tube was placed posterior apically through a separate stab incision. Rib blocks were performed at the level of the incisions with Percent Sensorcaine. Incisions were then closed with layers of Vicryl suture. Drapes were removed and the patient was turned supine. The stapled new pocket and the original ICD pocket were sterilely prepped and draped. Jg were removed from the small pocket that contained the LV lead. The pacemaker site was opened and the ICD removed from its subcutaneous pocket. The LV lead was tunneled up into the ICD pocket. The leads were then disconnected from the ICD and reconnected to a biV ICD. ICD was replaced in the pocket. Good hemostasis was assured throughout. Both pockets were irrigated with antibiotic solution. Both pockets were closed with layers of Vicryl suture. Skin glue was applied to all 4 incisions and a chest tube drug dressing was placed on the chest tube site. Patient was extubated and transferred to recovery in stable condition.
== END 2018-10-28 16:13 | disposition home or self-care (01) | DRG 226 ==
LOC: 3SCARD 10-19 13:50
PROVIDERS: ADMIT Hospitalist; ATTEND Hospitalist
PROC: 0JWT3PZ Revision of Cardiac Rhythm Related Device in Trunk Subcutaneous Tissue and Fascia, Percutaneous Approach (ICD-10-PCS; 2018-10-19)
PROC: 0JPT0PZ Removal of Cardiac Rhythm Related Device from Trunk Subcutaneous Tissue and Fascia, Open Approach (ICD-10-PCS; 2018-10-23)
PROC: 02WA0MZ Revision of Cardiac Lead in Heart, Open Approach (ICD-10-PCS; 2018-10-23)
PROC: 02HL3KZ Insertion of Defibrillator Lead into Left Ventricle, Percutaneous Approach (ICD-10-PCS; principal; 2018-10-23 07:30)
PROC: 0JH609Z Insertion of Cardiac Resynchronization Defibrillator Pulse Generator into Chest Subcutaneous Tissue and Fascia, Open Approach (ICD-10-PCS; 2018-10-23 07:30)
DX: I48.1 Persistent atrial fibrillation (principal); I50.23 Acute on chronic systolic (congestive) heart failure; I13.0 Hypertensive heart and chronic kidney disease with heart failure and stage 1 through stage 4 chronic kidney disease, or unspecified chronic kidney disease; E87.1 Hypo-osmolality and hyponatremia; J96.11 Chronic respiratory failure with hypoxia; J98.11 Atelectasis; I44.2 Atrioventricular block, complete; I25.5 Ischemic cardiomyopathy; I95.9 Hypotension, unspecified; D69.6 Thrombocytopenia, unspecified; E11.22 Type 2 diabetes mellitus with diabetic chronic kidney disease; E11.42 Type 2 diabetes mellitus with diabetic polyneuropathy; K76.1 Chronic passive congestion of liver; E66.9 Obesity, unspecified; I99.8 Other disorder of circulatory system; D63.8 Anemia in other chronic diseases classified elsewhere; E78.5 Hyperlipidemia, unspecified; F17.200 Nicotine dependence, unspecified, uncomplicated; G47.33 Obstructive sleep apnea (adult) (pediatric); I25.10 Atherosclerotic heart disease of native coronary artery without angina pectoris; I25.2 Old myocardial infarction; I34.0 Nonrheumatic mitral (valve) insufficiency; J44.9 Chronic obstructive pulmonary disease, unspecified; M19.90 Unspecified osteoarthritis, unspecified site; H93.19 Tinnitus, unspecified ear; Z79.01 Long term (current) use of anticoagulants; Z79.51 Long term (current) use of inhaled steroids; Z79.82 Long term (current) use of aspirin; Z79.84 Long term (current) use of oral hypoglycemic drugs; Z79.899 Other long term (current) drug therapy; Z95.1 Presence of aortocoronary bypass graft; Z95.810 Presence of automatic (implantable) cardiac defibrillator; Z88.8 Allergy status to other drugs, medicaments and biological substances; Z88.1 Allergy status to other antibiotic agents; Z91.040 Latex allergy status; Z68.29 Body mass index [BMI] 29.0-29.9, adult; Z82.49 Family history of ischemic heart disease and other diseases of the circulatory system; Z80.9 Family history of malignant neoplasm, unspecified
CPT/HCPCS: 33224; 71045; 71046; 80048; 80053; 80076; 83735; 85025; 85027; 86850; 86900; 86901; 94640; 94760

== ENCOUNTER 2018-11-01 10:59 | Emergency (ER) | payer MEDICARE ==
[2018-11-01] MEDS ORDERED: SODIUM CHLORIDE 0.9% 500 ML 500 ML IV STA (11:07)
[2018-11-01] MEDS ORDERED: SODIUM CHLORIDE 0.9% 1,000 ML IV STA (11:07)
[2018-11-01 11:11] VITALS: RESP 18
--- NOTE | 2018-11-01 11:23 | ED ---
Dizziness HPI - General Chief Complaint: Dizziness Stated Complaint: DIZZINESS Time Seen by Provider: 11/01/18 11:00 Source: patient, EMS, RN notes reviewed, old records reviewed Mode of arrival: EMS Limitations: no limitations - History of Present Illness Initial Comments: This is a 63-year-old male history of multiple medical problems which includes C OPD and hypertension who states she's had about a 100 pound weight loss over past year but has not had any adjustments in his medications were now complains of lightheadedness and dizziness when he got this morning. He did call EMS. He was given a fluid bolus of 250 mL in route his initial blood pressure was 75/45. He did increase 100 systolic after the fluid challenge. Upon arrival here was 97/63. He has had a left-sided headache limited blurry vision loss this is gotten better headache is still there but is improved also. Of note however the patient is on a blood thinner. He also has COPD he denies any shortness of breath at this time. No chest pain. MD Complaint: dizziness, lightheadedness - Related Data Home Medications Medication Instructions Recorded Confirmed Albuterol Inhaler [Ventolin Hfa 2 puff INHALATION RT-Q4H PRN 10/19/18 11/01/18 Inhaler] Albuterol Nebulized [Ventolin 2.5 mg INHALATION RT-QID PRN 10/19/18 11/01/18 Nebulized] Apixaban [Eliquis] 5 mg PO BID 10/19/18 11/01/18 Atorvastatin [Lipitor] 40 mg PO HS 11/01/18 11/01/18 Sacubitril/Valsartan [Entresto 24 1 tab PO BID 11/01/18 11/01/18 mg-26 mg Tablet] metFORMIN HCL [Glucophage] 500 mg PO AC-BID 11/01/18 11/01/18 Previous Rx's Medication Instructions Recorded Aspirin EC [Ecotrin Low Dose] 81 mg PO DAILY #90 tablet. 10/28/18 Ferrous Sulfate [Iron (65 MG 325 mg PO W/LUNCH #30 tab 10/28/18 Elemental)] Furosemide [Lasix] 40 mg PO BID #180 tablet 10/28/18 Metoprolol Succinate (ER) [Toprol 25 mg PO DAILY #90 tab 10/28/18 Xl] Spironolactone 50 mg PO QAM #90 tablet 10/28/18 Tamsulosin [Flomax] 0.4 mg PO DAILY #30 cap.er.24h 10/28/18 Allergies Allergy/AdvReac Type Severity Reaction Status Date / Time Latex, Natural Rubber Allergy Rash/Hives Verified 11/01/18 11:25 levofloxacin [From Levaquin] Allergy Rash/Hives Verified 11/01/18 11:25 mold Allergy Rash/Hives Verified 11/01/18 11:25 prednisone Allergy Rash/Hives Verified 11/01/18 11:25 STEROIDS Allergy Rash/Hives Uncoded 11/01/18 11:18 Review of Systems ROS Statement: Those systems with pertinent positive or pertinent negative responses have been documented in the HPI. ROS Other: All systems not noted in ROS Statement are negative. Past Medical History Past Medical History: Coronary Artery Disease (CAD), Chest Pain / Angina, Heart Failure, COPD, Diabetes Mellitus, Hyperlipidemia, Myocardial Infarction (ID), Osteoarthritis (OA) Additional Past Medical History / Comment(s): Coronary artery disease with a previous bypass surgery, ischemic cardiomyopathy with ejection fraction of less than 20%,HOME 02 2-2.5 LITERS AT HS, COPD, obstructive sleep apnea with an AHI of 24 currently on auto CPAP unit, obesity, hypertension, AICD placement for ischemic cardiomyopathy, Cardiomyopathy, osteoarthritis, diabetes mellitus, hyperlipidemia, hypertension.past fx rt leg.tinnitus Last Myocardial Infarction Date:: UNSURE History of Any Multi-Drug Resistant Organisms: None Reported Past Surgical History: AICD, Coronary Bypass/CABG, Heart Catheterization, Orth opedic Surgery Additional Past Surgical History / Comment(s): Pacemaker and AICD- 10/2013, CABG 1 vessel many yrs ago per pt, BILATERAL SHOULDER SURGERY , steel alcides in rt leg d /t fracture, bilat shoulders Past Anesthesia/Blood Transfusion Reactions: No Reported Reaction Type of Cardiac Device: Permanent Pacemaker, AICD Device Placement Date:: Past Psychological History: No Psychological Hx Reported Smoking Status: Former smoker Past Alcohol Use History: None Reported Past Drug Use History: None Reported - Past Family History Mother History Unknown: Yes Father Family Medical History: Myocardial Infarction (ID) Additional Family Medical History / Comment(s): Father of a ID at the age of 56yrs. Brother(s) Family Medical History: Cancer General Exam - General Exam Comments Initial Comments: This is a well-developed well-nourished awake alert oriented 3 male Limitations: no limitations General appearance: alert, lethargic Head exam: Present: atraumatic, normocephalic, normal inspection Eye exam: Present: normal appearance, PERRL, EOMI. Absent: scleral icterus, conjunctival injection, periorbital swelling ENT exam: Present: normal exam, mucous membranes moist Neck exam: Present: normal inspection. Absent: tenderness, meningismus, lymphadenopathy Respiratory exam: Present: wheezes, decreased breath sounds. Absent: respiratory distress, rales, rhonchi, stridor Cardiovascular Exam: Present: regular rate, normal rhythm, normal heart sounds. Absent: systolic murmur, diastolic murmur, rubs, gallop, clicks GI/Abdominal exam: Present: soft, normal bowel sounds. Absent: distended, tenderness, guarding, rebound, rigid Extremities exam: Present: normal inspection, full ROM, normal capillary refill. Absent: tenderness, pedal edema, joint swelling, calf tenderness Back exam: Present: normal inspection Neurological exam: Present: alert, oriented X3, CN II-XII intact Psychiatric exam: Present: normal affect, normal mood Skin exam: Present: warm, dry, intact, normal color. Absent: rash Course Vital Signs 11/01/18 11/01/18 11/01/18 11:07 11:43 13:04 Temperature 97.9 F 98.2 F Pulse Rate 80 80 Pulse Rate [ 80 Sitting] Pulse Rate [ 80 Standing] Pulse Rate [ 82 Supine] Respiratory 18 18 Rate Blood Pressure 97/63 106/63 Blood Pressure 110/63 [Sitting] Blood Pressure 111/61 [Standing] Blood Pressure 102/59 [Supine] O2 Sat by Pulse 100 98 Oximetry - Reevaluation(s) Reevaluation #1: 11/01/18 11:24 Patient did have a 100% pulse ox on room air though he did have some wheezing on auscultation. He denies shortness of breath at time of my evaluation. Reevaluation #2: 11/01/18 13:16 equipment monitor phototypesetting: Indication rule out dysrhythmia the patient presented with some lightheadedness and dizziness. Pacemaker rhythm noted no evidence of failure no evidence of dysrhythmia noted. EKG Findings - EKG Results: EKG: interpreted by HENOK, sinus rhythm (EKG shows pacemaker rhythm of 80 QRS 160 QT since QTC 43/495 ventricular paced rhythm) Medical Decision Making - Medical Decision Making Patient feels much improved after IV fluids. Patient will be discharged with follow-up with his doctor for reevaluation of his blood pressure medication. Is patient is consistent with dehydration and orthostatic etiology is. - Lab Data Result diagrams: 11/01/18 11:10 11/01/18 11:10 Lab Results 11/01/18 11/01/18 11/01/18 Range/Units 11:10 11:10 11:10 WBC 4.3 (3.8-10.6) k/uL RBC 3.54 L (4.30-5.90) m/uL Hgb 9.0 L (13.0-17.5) gm/dL Hct 29.9 L (39.0-53.0) % MCV 84.4 (80.0-100.0) fL MCH 25.5 (25.0-35.0) pg MCHC 30.2 L (31.0-37.0) g/dL RDW 23.6 H (11.5-15.5) % Plt Count 218 (150-450) k/uL Neutrophils % 65 % Lymphocytes % 19 % Monocytes % 8 % Eosinophils % 5 % Basophils % 1 % Neutrophils # 2.8 (1.3-7.7) k/uL Lymphocytes # 0.8 L (1.0-4.8) k/uL Monocytes # 0.3 (0-1.0) k/uL Eosinophils # 0.2 (0-0.7) k/uL Basophils # 0.0 (0-0.2) k/uL Hypochromasia Marked Anisocytosis Moderate Microcytosis Slight Sodium 138 (137-145) mmol/L Potassium 4.4 (3.5-5.1) mmol/L Chloride 103 (98-107) mmol/L Carbon Dioxide 25 (22-30) mmol/L Anion Gap 10 mmol/L BUN 22 H (9-20) mg/dL Creatinine 1.04 (0.66-1.25) mg/dL Est GFR (CKD-EPI)AfAm 88 (>60 ml/min/1.73 sqM) Est GFR (CKD-EPI)NonAf 76 (>60 ml/min/1.73 sqM) Glucose 85 (74-99) mg/dL Calcium 9.0 (8.4-10.2) mg/dL Magnesium 1.8 (1.6-2.3) mg/dL Total Bilirubin 1.4 H (0.2-1.3) mg/dL AST 30 (17-59) U/L ALT 30 (21-72) U/L Alkaline Phosphatase 62 (38-126) U/L Total Creatine Kinase 54 L (55-170) U/L CK-MB (CK-2) 1.9 (0.0-2.4) ng/mL CK-MB (CK-2) Rel Index 3.5 Troponin I 0.034 (0.000-0.034) ng/mL Total Protein 5.9 L (6.3-8.2) g/dL Albumin 3.7 (3.5-5.0) g/dL - Radiology Data Radiology results: report reviewed (Imaging was reviewed no definite acute findings noted.), image reviewed Disposition Clinical Impression: Orthostatic hypotension, Dehydration, Pacemaker Disposition: HOME SELF-CARE Condition: Good Instructions (If sedation given, give patient instructions): Dizziness (ED), Dehydration (ED) Is patient prescribed a controlled substance at d/c from ED?: No Referrals: Mary Merritt MD [Primary Care Provider] - 1-2 days
[2018-11-01 11:28] LABS: Anisocytosis Moderate; Basophils % (A) 1 %; Eosinophils # (A) 0.2 k/uL (0-0.7); Eosinophils % (A) 5 %; HCT 29.9 % (39.0-53.0); Hypochromasia Marked; Lymphocytes # (A) 0.8 k/uL (1.0-4.8); Lymphocytes % (A) 19 %; MCH 25.5 pg (25.0-35.0); MCHC 30.2 g/dL (31.0-37.0); MCV 84.4 fL (80.0-100.0); Mean Platelet Volume 8.9; Microcytosis Slight; Monocytes # (A) 0.3 k/uL (0-1.0); Monocytes % (A) 8 %; Neutrophils # (A) 2.8 k/uL (1.3-7.7); Neutrophils % (A) 65 %; Platelet Count 218 k/uL (150-450); RBC 3.54 m/uL (4.30-5.90); RDW 23.6 % (11.5-15.5); WBC 4.3 k/uL (3.8-10.6)
[2018-11-01 11:37] LABS: Albumin 3.7 g/dL (3.5-5.0); Magnesium 1.8 mg/dL (1.6-2.3); Total Bilirubin 1.4 mg/dL (0.2-1.3); Total Protein 5.9 g/dL (6.3-8.2)
[2018-11-01 11:45] LABS: Potassium 4.4 mmol/L (3.5-5.1)
--- NOTE | 2018-11-01 12:01 | CT ---
EXAMINATION TYPE: CT brain wo con DATE OF EXAM: 11/01/2018 COMPARISON: 05/26/2014 INDICATION: Dizziness, pain DLP: 1129.4 mGycm, Automated exposure control for dose reduction was used. CONTRAST: None CT of the brain is performed utilizing 3 mm thick sections through the posterior fossa and 3 mm thick sections through the remaining calvarium. Study is performed within 24 hours of arrival to the hosp ital. No abnormal hyperdensity is present to suggest an acute intracranial hemorrhage. No mass lesion is evident. No acute infarcts are evident. Mild left watershed region encephalomalacia may be present. Mild old i schemic change may be present. This is an interval change from 2013. Ventricles and sulci are appropriate for the patient age. Paranasal sinuses and mastoid air cells within the [id number] are clear. IMPRESSIONS: 1. Chronic appearing watershed ischemic change through the left parietal-occipital watershed region .
--- NOTE | 2018-11-01 12:03 | XR ---
EXAMINATION TYPE: XR chest 2V DATE OF EXAM: 11/01/2018 COMPARISON: 10/25/2018 INDICATION: Cough dizzy weak TECHNIQUE: Frontal and lateral views of the chest are obtained. FINDINGS: The heart size is normal. Pacemaker overlies left chest. No pneumothorax is evident. The pulmonary vasculature is normal. The lungs are clear. Some hyperinflation flattening the diaphragms is present suggestive for COPD IMPRESSION: 1. No acute pulmonary process. Some underlying COPD may be present.
[2018-11-01 12:26] LABS: Creatine Kinase MB 1.9 ng/mL (0.0-2.4); Troponin I 0.034 ng/mL (0.000-0.034)
[2018-11-01 13:40] VITALS: BP 112/63; PULSE 80; TEMP 97
== END 2018-11-01 13:42 | disposition home or self-care (01) ==
LOC: EC 10:59
DX: E86.0 Dehydration (principal); I95.1 Orthostatic hypotension; Z95.0 Presence of cardiac pacemaker; R06.2 Wheezing; R09.89 Other specified symptoms and signs involving the circulatory and respiratory systems; I25.119 Atherosclerotic heart disease of native coronary artery with unspecified angina pectoris; I11.0 Hypertensive heart disease with heart failure; I50.9 Heart failure, unspecified; J44.9 Chronic obstructive pulmonary disease, unspecified; E11.9 Type 2 diabetes mellitus without complications; E78.5 Hyperlipidemia, unspecified; I25.2 Old myocardial infarction; G47.33 Obstructive sleep apnea (adult) (pediatric); Z87.891 Personal history of nicotine dependence; Z88.1 Allergy status to other antibiotic agents; Z88.8 Allergy status to other drugs, medicaments and biological substances; Z91.040 Latex allergy status; Z91.048 Other nonmedicinal substance allergy status; Z79.01 Long term (current) use of anticoagulants; Z79.84 Long term (current) use of oral hypoglycemic drugs; Z79.899 Other long term (current) drug therapy; Z95.1 Presence of aortocoronary bypass graft; Z99.81 Dependence on supplemental oxygen; Z99.89 Dependence on other enabling machines and devices; Z82.49 Family history of ischemic heart disease and other diseases of the circulatory system
CPT/HCPCS: 36415; 70450; 71046; 80053; 82550; 82553; 83735; 84484; 85025; 96360; 96361; 99285

== ENCOUNTER 2020-01-22 18:46 | Inpatient (IN) | payer MEDICARE ==
[2020-01-22] MEDS ORDERED: IPRATROPIUM-ALBUTEROL 3 ML NEB INHALATION STA (19:19)
[2020-01-22] MEDS ORDERED: SODIUM CHLORIDE 0.9% 500 ML 500 ML IV STA (19:19)
[2020-01-22 19:40] LABS: Basophils % (A) 0 %; Eosinophils # (A) 0.1 k/uL (0-0.7); Eosinophils % (A) 1 %; HCT 36.1 % (39.0-53.0); HGB 11.8 gm/dL (13.0-17.5); Lymphocytes # (A) 1.1 k/uL (1.0-4.8); Lymphocytes % (A) 13 %; MCH 31.8 pg (25.0-35.0); MCHC 32.5 g/dL (31.0-37.0); MCV 97.9 fL (80.0-100.0); Macrocytosis Slight; Mean Platelet Volume 8.1; Monocytes # (A) 0.7 k/uL (0-1.0); Monocytes % (A) 8 %; Neutrophils # (A) 6.5 k/uL (1.3-7.7); Neutrophils % (A) 75 %; Platelet Count 197 k/uL (150-450); RBC 3.69 m/uL (4.30-5.90); RDW 15.6 % (11.5-15.5); WBC 8.7 k/uL (3.8-10.6)
[2020-01-22 19:49] LABS: Albumin 4.3 g/dL (3.5-5.0); Calcium 9.2 mg/dL (8.4-10.2); Potassium 3.9 mmol/L (3.5-5.1); Total Protein 6.9 g/dL (6.3-8.2)
[2020-01-22 19:56] LABS: Partial Thromboplastin Time 24.8 sec (22.0-30.0); Prothrombin Time 10.5 sec (9.0-12.0)
--- NOTE | 2020-01-22 19:57 | ED ---
SOB HPI - General Source: patient Mode of arrival: EMS Limitations: no limitations <Molly Wise - Last Filed: 01/23/20 00:09> <Stacy Prince - Last Filed: 01/31/20 16:01> - General Chief Complaint: Shortness of Breath Stated Complaint: Diff Breathing Time Seen by Provider: 01/22/20 18:58 - History of Present Illness Initial Comments: 64-year-old male patient presents to the emergency department today for evaluation of shortness of breath. Patient states that he has been having shortness of breath for the last several days. States he did see his rayon coner on Tuesday who gave him a double dose of Lasix. Patient states that he did decrease his way in the swelling did resolve heart rate continues to be short of breath. He is also reporting dizziness and lightheadedness throughout the day today. Denies any passing out. Denies any chest pain with this. Denies coughing or congestion. He is also reporting decreased urine output. Patient does admit to taking a total of 160mg of lasix today. Patient denies any recent rash, fever, chills, abdominal pain, nausea, vomiting, diarrhea, constipation, back pain, numbness, tingling, hematuria, dysuria, urinary urgency, urinary frequency, headache, visual changes, or any other complaints. (Molly Wise) - Related Data Home Medications Medication Instructions Recorded Confirmed Albuterol Nebulized [Ventolin 2.5 mg INHALATION RT-QID PRN 10/19/18 01/22/20 Nebulized] Apixaban [Eliquis] 5 mg PO BID 10/19/18 01/22/20 Atorvastatin [Lipitor] 40 mg PO HS 11/01/18 01/22/20 Albuterol Inhaler [Ventolin Hfa 1 puff INHALATION RT-QID 01/22/20 01/22/20 Inhaler] Fluticasone/Salmeterol [Advair 1 puff INHALATION RT-BID 01/22/20 01/22/20 250-50 Diskus] Previous Rx's Medication Instructions Recorded Aspirin EC [Ecotrin Low Dose] 81 mg PO DAILY #90 tablet. 10/28/18 Budesonide-Formot 160-4.5 Mcg 2 puff INHALATION RT-BID #1 inh 06/26/20 [Symbicort 160-4.5 Mcg Inhaler] Doxycycline [Vibramycin] 100 mg PO BID 3 Days #7 capsule 01/25/20 Metoprolol Succinate (ER) [Toprol 25 mg PO DAILY #30 tab.er.24h 01/25/20 XL] Midodrine [ProAmatine] 5 mg PO AC-BID #20 tab 01/25/20 Nicotine 21Mg/24Hr Patch [Habitrol] 1 patch TRANSDERM DAILY #7 patch 01/25/20 Thiamine [Vitamin B-1] 100 mg PO DAILY #30 tab 01/25/20 predniSONE 10 mg PO DIRECTED #26 tab 01/25/20 Allergies Allergy/AdvReac Type Severity Reaction Status Date / Time Latex, Natural Rubber Allergy Rash/Hives Verified 01/22/20 20:28 levofloxacin [From Levaquin] Allergy Rash/Hives Verified 01/22/20 20:28 mold Allergy Rash/Hives Verified 01/22/20 20:28 prednisone Allergy Rash/Hives Verified 01/22/20 20:28 STEROIDS Allergy Rash/Hives Uncoded 11/01/18 11:18 Review of Systems ROS Other: All systems not noted in ROS Statement are negative. <Molly Wise - Last Filed: 01/23/20 00:09> ROS Other: All systems not noted in ROS Statement are negative. <Stacy Prince - Last Filed: 01/31/20 16:01> ROS Statement: Those systems with pertinent positive or pertinent negative responses have been documented in the HPI. Past Medical History Past Medical History: Coronary Artery Disease (CAD), Chest Pain / Angina, Heart Failure, COPD, Diabetes Mellitus, Hyperlipidemia, Myocardial Infarction ([place]), Osteoarthritis (OA) Additional Past Medical History / Comment(s): Coronary artery disease with a previous bypass surgery, ischemic cardiomyopathy with ejection fraction of less than 20%,HOME 02 2-2.5 LITERS AT HS, COPD, obstructive sleep apnea with an AHI of 24 currently on auto CPAP unit, obesity, hypertension, AICD placement for ischemic cardiomyopathy, Cardiomyopathy, osteoarthritis, diabetes mellitus, hyperlipidemia, hypertension.past fx rt leg.tinnitus Last Myocardial Infarction Date:: UNSURE History of Any Multi-Drug Resistant Organisms: None Reported Past Surgical History: AICD, Coronary Bypass/CABG, Heart Catheterization, Orthopedic Surgery Additional Past Surgical History / Comment(s): Pacemaker and AICD- 10/2013, CABG 1 vessel many yrs ago per pt, BILATERAL SHOULDER SURGERY , steel alcides in rt leg d/t fracture, bilat shoulders Past Anesthesia/Blood Transfusion Reactions: No Reported Reaction Type of Cardiac Device: Permanent Pacemaker, AICD Device Placement Date:: Past Psychological History: No Psychological Hx Reported Smoking Status: Former smoker Past Alcohol Use History: None Reported Past Drug Use History: None Reported - Past Family History Mother History Unknown: Yes Father Family Medical History: Myocardial Infarction ([place]) Additional Family Medical History / Comment(s): Father of a [place] at th e age of 56yrs. Brother(s) Family Medical History: Cancer <Molly Wise - Last Filed: 01/23/20 00:09> General Exam Limitations: no limitations General appearance: alert, in no apparent distress, other (This is a well- developed, well-nourished adult male patient in no acute distress. Vital signs upon presentation are temperature 98.2F, pulse 72, respirations 18, pulse ox 100% on room air.) Eye exam: Present: normal appearance, PERRL, EOMI. Absent: scleral icterus, conjunctival injection, periorbital swelling ENT exam: Present: normal exam, normal oropharynx, mucous membranes moist Respiratory exam: Present: normal lung sounds bilaterally, other (Coarse breath sounds inspiratory and expiratory in all posterior lung rene). Absent: respiratory distress, wheezes, rales, rhonchi, stridor Cardiovascular Exam: Present: regular rate, normal rhythm, normal heart sounds. Absent: systolic murmur, diastolic murmur, rubs, gallop, clicks GI/Abdominal exam: Present: soft, normal bowel sounds. Absent: distended, tenderness, guarding, rebound, rigid Neurological exam: Present: alert, oriented X3, CN II-XII intact Psychiatric exam: Present: normal affect, normal mood Skin exam: Present: warm, dry, intact, normal color. Absent: rash <Molly Wise Last Filed: 01/23/20 00:09> Course Vital Signs 01/22/20 01/22/20 01/22/20 18:58 20:01 20:12 Temperature 98.2 F Pulse Rate 72 88 90 Pulse Rate [ General Superintendent ] Respiratory 18 18 18 Rate Blood Pressure Blood Pressure [Left Arm] O2 Sat by Pulse 100 Oximetry 01/22/20 01/22/20 01/23/20 21:41 23:11 00:00 Temperature Pulse Rate 71 70 85 Pulse Rate [ General Superintendent ] Respiratory 17 18 32 H Rate Blood Pressure 112/69 99/54 103/76 Blood Pressure [Left Arm] O2 Sat by Pulse 99 96 100 Oximetry 01/23/20 01/23/20 01/23/20 01:00 02:00 02:18 Temperature Pulse Rate 80 79 78 Pulse Rate [ General Superintendent ] Respiratory 22 22 Rate Blood Pressure Blood Pressure [Left Arm] O2 Sat by Pulse Oximetry 01/23/20 01/23/20 01/23/20 02:27 03:00 07:00 Temperature 97.7 F Pulse Rate 78 70 70 Pulse Rate [ General Superintendent ] Respiratory 22 22 Rate Blood Pressure 97/62 Blood Pressure [Left Arm] O2 Sat by Pulse 95 Oximetry 01/23/20 01/23/20 01/23/20 07:50 10:57 11:48 Temperature 97.8 F Pulse Rate 80 Pulse Rate [ 70 70 General Superintendent ] Respiratory 18 18 16 Rate Blood Pressure Blood Pressure 120/55 95/61 [Left Arm] O2 Sat by Pulse 93 L 98 Oximetry 01/23/20 11:55 Temperature Pulse Rate 90 Pulse Rate [ General Superintendent ] Respiratory 16 Rate Blood Pressure Blood Pressure [Left Arm] O2 Sat by Pulse Oximetry Medical Decision Making - Lab Data Result diagrams: 01/22/20 19:14 01/22/20 19:25 - EKG Data -: EKG Interpreted by Dc - Radiology Data Radiology results: report reviewed, image reviewed <Molly Wise - Last Filed: 01/23/20 00:09> - Lab Data Result diagrams: 01/22/20 19:14 01/25/20 07:52 <Stacy Prince - Last Filed: 01/31/20 16:01> - Medical Decision Making 64-year-old male patient presents to the emergency department today for evaluation of shortness of breath and decreased urine output. Physical examination revealed coarse lung sounds. Labs reviewed and did reveal elevated BUN and creatinine consistent with acute renal failure. Patient has had elevated BUN in the past that always normal creatinine. Troponin was elevated, most likely related to renal leak, we will trend serials through the night. He is having no chest pain. Chest x-ray showed mild pulmonary congestion. Upon arrival patient was hypotensive in the 70s systolic. We did give 500 mL fluid bolus which did improve pressures. It is felt that his acute renal failure secondary to dehydration related to taking additional doses of his Lasix. Patient will be admitted to the hospital for gentle IV hydration and reevaluation in the morning. (Molly Wise) I was available for consultation in the emergency department. The history and physical exam were done by the midlevel provider. I was consulted for this patients care. I reviewed the case with the midlevel provider and based on their presentation of the patient, I agree with the assessment, medical decision making and plan of care as documented. Chart was dictated using Moz[employer] dictation software. Attempts were made to correct any dictation errors however some typographical errors may persist. Patient was seen during a national state of emergency due to the Covid-19 pandemic. (Stacy Prince) - Lab Data Lab Results 01/22/20 01/22/20 01/22/20 Range/Units 19:14 19:25 19:25 WBC 8.7 (3.8-10.6) k/uL RBC 3.69 L (4.30-5.90) m/uL Hgb 11.8 L (13.0-17.5) gm/dL Hct 36.1 L (39.0-53.0) % MCV 97.9 (80.0-100.0) fL MCH 31.8 (25.0-35.0) pg MCHC 32.5 (31.0-37.0) g/dL RDW 15.6 H (11.5-15.5) % Plt Count 197 (150-450) k/uL Neutrophils % 75 % Lymphocytes % 13 % Monocytes % 8 % Eosinophils % 1 % Basophils % 0 % Neutrophils # 6.5 (1.3-7.7) k/uL Lymphocytes # 1.1 (1.0-4.8) k/uL Monocytes # 0.7 (0-1.0) k/uL Eosinophils # 0.1 (0-0.7) k/uL Basophils # 0.0 (0-0.2) k/uL Macrocytosis Slight PT 10.5 (9.0-12.0) sec INR 1.0 (<1.2) APTT 24.8 (22.0-30.0) sec Sodium 129 L (137-145) mmol/L Potassium 3.9 (3.5-5.1) mmol/L Chloride 84 L (98-107) mmol/L Carbon Dioxide 32 H (22-30) mmol/L Anion Gap 13 mmol/L BUN 47 H (9-20) mg/dL Creatinine 2.66 H (0.66-1.25) mg/dL Est GFR (CKD-EPI)AfAm 28 (>60 ml/min/1.73 sqM) Est GFR (CKD-EPI)NonAf 24 (>60 ml/min/1.73 sqM) Glucose 120 H (74-99) mg/dL Lactic Ac Sepsis Rflx Plasma Lactic Acid Meng (0.7-2.0) mmol/L Calcium 9.2 (8.4-10.2) mg/dL Total Bilirubin 2.0 H (0.2-1.3) mg/dL AST 29 (17-59) U/L ALT 21 (4-49) U/L Alkaline Phosphatase 104 (38-126) U/L Troponin I (0.000-0.034) ng/mL Total Protein 6.9 (6.3-8.2) g/dL Albumin 4.3 (3.5-5.0) g/dL 01/22/20 01/22/20 01/22/20 Range/Units 19:25 19:37 20:00 WBC (3.8-10.6) k/uL RBC (4.30-5.90) m/uL Hgb (13.0-17.5) gm/dL Hct (39.0-53.0) % MCV (80.0-100.0) fL MCH (25.0-35.0) pg MCHC (31.0-37.0) g/dL RDW (11.5-15.5) % Plt Count (150-450) k/uL Neutrophils % % Lymphocytes % % Monocytes % % Eosinophils % % Basophils % % Neutrophils # (1.3-7.7) k/uL Lymphocytes # (1.0-4.8) k/uL Monocytes # (0-1.0) k/uL Eosinophils # (0-0.7) k/uL Basophils # (0-0.2) k/uL Macrocytosis PT (9.0-12.0) sec INR (<1.2) APTT (22.0-30.0) sec Sodium (137-145) mmol/L Potassium (3.5-5.1) mmol/L Chloride (98-107) mmol/L Carbon Dioxide (22-30) mmol/L Anion Gap mmol/L BUN (9-20) mg/dL Creatinine (0.66-1.25) mg/dL Est GFR (CKD-EPI)AfAm (>60 ml/min/1.73 sqM) Est GFR (CKD-EPI)NonAf (>60 ml/min/1.73 sqM) Glucose (74-99) mg/dL Lactic Ac Sepsis Rflx Y Plasma Lactic Acid Meng 2.1 H* (0.7-2.0) mmol/L Calcium (8.4-10.2) mg/dL Total Bilirubin (0.2-1.3) mg/dL AST (17-59) U/L ALT (4-49) U/L Alkaline Phosphatase (38-126) U/L Troponin I 0.051 H* (0.000-0.034) ng/mL Total Protein (6.3-8.2) g/dL Albumin (3.5-5.0) g/dL - EKG Data EKG Comments: EKG obtained in 1909 shows ventricular paced rhythm with a ventricular rate is 70, QR sabianist 154, QT 512, QTC 552. No evidence of ST elevation or depression. (Molly Wise) - Radiology Data Two-view x-ray of the chest is obtained. Report was reviewed in its entirety. Impression by Dr. Galeano shows increased vascularity compared to old exam. No obvious heart failure. (Molly Wise) Disposition Decision to Admit Reason: Admit from EC Decision Date: 01/22/20 Decision Time: 23:29 <Molly Wise - Last Filed: 01/23/20 00:09> <Stacy Prince - Last Filed: 01/31/20 16:01> Clinical Impression: Acute renal failure, Elevated troponin Disposition: ADMITTED IP TO THIS [facility] Condition: Good
--- NOTE | 2020-01-22 20:50 | XR ---
EXAMINATION TYPE: XR chest 2V DATE OF EXAM: 01/22/2020 COMPARISON: 11/15/2018 HISTORY: Short of breath TECHNIQUE: 2 views FINDINGS: There is no heart failure nor confluent pneumonic infiltrate. There is a left axillary pace maker. There are chest leads. Costophrenic angles are clear. There is minimal pulmonary congestion. IMPRESSION: There is increased vascularity compared to old exam. No obvious heart failure.
[2020-01-22] MEDS ORDERED: NALOXONE 0.4 MG/ML 1 ML VIAL IV PRN (21:47)
[2020-01-22] MEDS: SODIUM CHLORIDE 0.9% 1,000 ML IV SCH (22:47)
[2020-01-23] MEDS ORDERED: IPRATROPIUM-ALBUTEROL 3 ML NEB INHALATION PRN (02:01)
[2020-01-23] MEDS ORDERED: FUROSEMIDE 40 MG TAB PO SCH (07:30)
[2020-01-23] MEDS ORDERED: metFORMIN 500 MG TAB PO SCH (07:30)
[2020-01-23 08:01] LABS: Glucose,Whole Blood 130 mg/dL (75-99)
[2020-01-23 08:01] LABS: Calcium 8.8 mg/dL (8.4-10.2); Potassium 4.2 mmol/L (3.5-5.1)
[2020-01-23] MEDS ORDERED: METOLAZONE 5 MG TAB PO SCH (09:00)
[2020-01-23] MEDS ORDERED: SACUBITRIL/VALSARTAN 24 MG-26 MG TABLET PO SCH (09:00)
[2020-01-23] MEDS ORDERED: THIAMINE 100 MG/ML 2 ML VIAL IM STA (09:38)
[2020-01-23] MEDS ORDERED: LORazepam 2 MG/ML INJ IV PRN ×3 (09:38)
--- NOTE | 2020-01-23 09:39 | P.HPIM ---
History of Present Illness This is a pleasant 64 years old male with past medical history of coronary artery disease, heart failure, COPD, diabetes mellitus, hyperlipidemia, osteoarthritis, ischemic cardiomyopathy with ejection fraction less than 20%, status post CABG and AICD chronic hypoxic respiratory failure on home oxygen 2- 2.5 L/m. Obstructive sleep apnea, on CPAP, obesity. He follows with Dr. 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 This patient of Dr. Angulo. Presents because of dyspnea of 1 week duration with no chest pain or coughing. No leg swelling. No dizziness or palpitation. No change in bowel habits. Last night after the Lasix he could not be and a Arteaga catheter was inserted He smokes half pack per day, drinks 2 cups every other days and no illicit drugs Vitals are stable. Labs showing sodium 129, creatinine 2.6, baseline is 0.8- 1.1. CBC is unremarkable, hemoglobin 11.8. INR is 1.0. Troponin is elevated at 0.042, proBNP slightly elevated at 1 or 30, lactic acid is normal at 1.3. liver Enzymes not elevated. Chest x-ray: No acute process by radiologist but not CHF. EKG showing paced rhythm at 70 with QTC 552 In the emergency room he received breathing treatment and 500 mL of normal saline bolus. Review of Systems CONSTITUTIONAL: No fever, no malaise, no fatigue. HEENT: No recent visual problems or hearing problems. Denied any sore throat. CARDIOVASCULAR: No orthopnea, PND, no palpitations, no syncope. PULMONARY: no cough, no hemoptysis. GASTROINTESTINAL: No diarrhea, no nausea, no vomiting, no abdominal pain. Normoactive bowel sounds. NEUROLOGICAL: No headaches, no weakness, no numbness. HEMATOLOGICAL: Denies any bleeding or petechiae. GENITOURINARY: Denies any burning micturition, frequency, or urgency. MUSCULOSKELETAL/RHEUMATOLOGICAL: Denies any joint pain, swelling, or any muscle pain. ENDOCRINE: Denies any polyuria or polydipsia. Past Medical History Past Medical History: Coronary Artery Disease (CAD), Chest Pain / Angina, Heart Failure, COPD, Diabetes Mellitus, Hyperlipidemia, Myocardial Infarction ([place]), Osteoarthritis (OA) Additional Past Medical History / Comment(s): Coronary artery disease with a previous bypass surgery, ischemic cardiomyopathy with ejection fraction of less than 20%,HOME 02 2-2.5 LITERS AT HS, COPD, obstructive sleep apnea with an AHI of 24 currently on auto CPAP unit, obesity, hypertension, AICD placement for ischemic cardiomyopathy, Cardiomyopathy, osteoarthritis, diabetes mellitus, hyperlipidemia, hypertension.past fx rt leg.tinnitus Last Myocardial Infarction Date:: UNSURE History of Any Multi-Drug Resistant Organisms: None Reported Past Surgical History: AICD, Coronary Bypass/CABG, Heart Catheterization, Orthopedic Surgery Additional Past Surgical History / Comment(s): Pacemaker and AICD- 10/2013. changed pacer 2018, CABG 1 vessel many yrs ago per pt, BILATERAL SHOULDER SURGERY , steel alcides in rt leg d/t fracture, bilat shoulders Past Anesthesia/Blood Transfusion Reactions: No Reported Reaction Type of Cardiac Device: Permanent Pacemaker, AICD Device Placement Date:: Past Psychological History: No Psychological Hx Reported Additional Psychological History / Comment(s): Pt resides with his spouse. He has a walker/cane/o2 2-2.5 liters n/c/nebulizer. he drives. Smoking Status: Current every day smoker Past Alcohol Use History: Daily Additional Past Alcohol Use History / Comment(s): Smokes half pack a day. Does drink 2 [place] every day. Past Drug Use History: None Reported - Past Family History Mother History Unknown: Yes Father Family Medical History: Myocardial Infarction ([place]) Additional Family Medical History / Comment(s): Father of a [place] at the age of 56yrs. Brother(s) Family Medical History: Cancer Medications and Allergies Home Medications Medication Instructions Recorded Confirmed Type Albuterol Nebulized [Ventolin 2.5 mg INHALATION RT-QID PRN 10/19/18 01/22/20 H istory Nebulized] Apixaban [Eliquis] 5 mg PO BID 10/19/18 01/22/20 History Aspirin EC [Ecotrin Low Dose] 81 mg PO DAILY #90 tablet. 10/28/18 01/22/20 Rx Atorvastatin [Lipitor] 40 mg PO HS 11/01/18 01/22/20 History Sacubitril/Valsartan [Entresto 24 1 tab PO BID 11/01/18 01/22/20 History mg-26 mg Tablet] metFORMIN HCL [Glucophage] 500 mg PO AC-BID 11/01/18 01/22/20 History Albuterol Inhaler [Ventolin Hfa 1 puff INHALATION RT-QID 01/22/20 01/22/20 History Inhaler] Fluticasone/Salmeterol [Advair 1 puff INHALATION RT-BID 01/22/20 01/22/20 History 250-50 Diskus] Furosemide [Lasix] 40 mg PO BID@0730,1500 01/22/20 01/22/20 History Metolazone [Zaroxolyn] 5 mg PO DAILY 01/22/20 01/22/20 History Metoprolol Succinate (ER) [Toprol 50 mg PO DAILY 01/22/20 01/22/20 History Xl] Allergies Allergy/AdvReac Type Severity Reaction Status Date / Time Latex, Natural Rubber Allergy Rash/Hives Verified 01/22/20 20:28 levofloxacin [From Levaquin] Allergy Rash/Hives Verified 01/22/20 20:28 mold Allergy Rash/Hives Verified 01/22/20 20:28 prednisone Allergy Rash/Hives Verified 01/22/20 20:28 STEROIDS Allergy Rash/Hives Uncoded 11/01/18 11:18 Physical Exam Vitals: Vital Signs Temp Pulse Pulse Resp BP BP Pulse Ox 01/23/20 07:50 97.8 F 70 18 120/55 93 L 01/23/20 07:00 97.7 F 70 22 97/62 95 01/23/20 03:00 70 22 01/23/20 02:27 78 01/23/20 02:18 78 01/23/20 02:00 79 22 01/23/20 01:00 80 22 01/23/20 00:00 85 32 H 103/76 100 01/22/20 23:11 70 18 99/54 96 01/22/20 21:41 71 17 112/69 99 01/22/20 20:12 90 18 01/22/20 20:01 88 18 01/22/20 18:58 98.2 F 72 18 100 Intake and Output 01/22/20 01/23/20 01/23/20 22:59 06:59 14:59 Other: Weight 107.501 kg 107.501 kg GENERAL: The patient is alert and oriented x3, not in any acute distress. Well developed, well nourished. HEENT: Pupils are round and equally reacting to light. EOMI. No scleral icterus. No conjunctival pallor. Normocephalic, atraumatic. No pharyngeal erythema. No thyromegaly. CARDIOVASCULAR: S1 and S2 present. No murmurs, rubs, or gallops. PULMONARY: Chest is clear to auscultation, no wheezing or crackles. ABDOMEN: Soft, nontender, nondistended, normoactive bowel sounds. No palpable organomegaly. Arteaga catheter in a Place (inserted in the ED) MUSCULOSKELETAL: No joint swelling or deformity. EXTREMITIES: No cyanosis, clubbing, or pedal edema. NEUROLOGICAL: Gross neurological examination did not reveal any focal deficits. SKIN: No rashes. No petechiae Results CBC & Chem 7: 01/22/20 19:14 01/23/20 07:06 Labs: Abnormal Lab Results - Last 24 Hours (Table) 01/22/20 01/22/20 01/22/20 Range/Units 19:14 19:25 19:25 RBC 3.69 L (4.30-5.90) m/uL Hgb 11.8 L (13.0-17.5) gm/dL Hct 36.1 L (39.0-53.0) % RDW 15.6 H (11.5-15.5) % Sodium 129 L (137-145) mmol/L Chloride 84 L (98-107) mmol/L Carbon Dioxide 32 H (22-30) mmol/L BUN 47 H (9-20) mg/dL Creatinine 2.66 H (0.66-1.25) mg/dL Glucose 120 H (74-99) mg/dL POC Glucose (mg/dL) (75-99) mg/dL Plasma Lactic Acid Meng (0.7-2.0) mmol/L Total Bilirubin 2.0 H (0.2-1.3) mg/dL Troponin I 0.051 H* (0.000-0.034) ng/mL 01/22/20 01/22/20 01/23/20 Range/Units 19:37 22:40 01:16 RBC (4.30-5.90) m/uL Hgb (13.0-17.5) gm/dL Hct (39.0-53.0) % RDW (11.5-15.5) % Sodium (137-145) mmol/L Chloride (98-107) mmol/L Carbon Dioxide (22-30) mmol/L BUN (9-20) mg/dL Creatinine (0.66-1.25) mg/dL Glucose (74-99) mg/dL POC Glucose (mg/dL) (75-99) mg/dL Plasma Lactic Acid Meng 2.1 H* 2.2 H* (0.7-2.0) mmol/L Total Bilirubin (0.2-1.3) mg/dL Troponin I 0.047 H* (0.000-0.034) ng/mL 01/23/20 01/23/20 01/23/20 Range/Units 07:06 07:06 07:58 RBC (4.30-5.90) m/uL Hgb (13.0-17.5) gm/dL Hct (39.0-53.0) % RDW (11.5-15.5) % Sodium 129 L (137-145) mmol/L Chloride 86 L (98-107) mmol/L Carbon Dioxide 34 H (22-30) mmol/L BUN 55 H (9-20) mg/dL Creatinine 2.65 H (0.66-1.25) mg/dL Glucose 104 H (74-99) mg/dL POC Glucose (mg/dL) 130 H (75-99) mg/dL Plasma Lactic Acid Meng (0.7-2.0) mmol/L Total Bilirubin (0.2-1.3) mg/dL Troponin I 0.048 H* (0.000-0.034) ng/mL Thrombosis Risk Factor Assmnt - Choose All That Apply Any of the Below Risk Factors Present?: Yes Each Factor Represents 1 point: Abnormal pulmonary function (COPD), Obesity (BMI >25) Other Risk Factors: Yes Each Risk Factor Represents 2 Points: Age 61-74 years Thrombosis Risk Factor Assessment Total Risk Factor Score: 4 Thrombosis Risk Factor Assessment Level: Moderate Risk Assessment and Plan Assessment: Elevated troponin, suspicious for non-STEMI. rule out ACS in view of his Coronary artery disease status post CABG Chronic ischemic cardiomyopathy with ejection fraction less than 20%, status post AICD Acute kidney injury Mitral regurgitation Chronic atrial fibrillation, on Eliquis Nicotine dependence Possible alcohol abuse/use disorder Diabetes mellitus Hypertension Hyperlipidemia COPD Chronic hypoxic respiratory theater on home oxygen of 2-2.5L/M Osteoarthritis Obstructive sleep apnea on CPAP Plan: This is a pleasant 64 years old male who presents with possible non-STEMI. He is already on Eliquis. Continue with the Eliquis and aspirin. Cardiology consult. Nephrology already been consulted Labs and medication were reviewed.. Continue same treatment. Continue with symptomatic treatment. Resume home medication. Monitor lytes and vitals. DVT and GI prophylaxis. Further recommendations of the clinical course of the patient DVT prophylaxis: Subcutaneous heparin GI Prophylaxis: Pepcid PT/OT: Pending Prognosis is guarded
[2020-01-23] MEDS: APIXABAN 5 MG TAB PO SCH ×2 (09:41→20:46)
[2020-01-23] MEDS: ASPIRIN 81 MG PO SCH (09:41)
[2020-01-23] MEDS: METOPROLOL SUCCINATE (ER) 50 MG TAB.ER.24H PO SCH (09:41)
--- NOTE | 2020-01-23 10:06 | P.CRDCN ---
History of Present Illness Consult date: 01/23/20 Requesting physician: Leann Gray Consult reason: congestive heart failure Chief complaint: Shortness of breath History of present illness: This is a 64-year-old gentleman who follows regularly with Dr. Birmingham in the office. He has a known history of systolic congestive heart failure, coronary artery disease with prior bypass surgery, ischemic cardio myopathy with documented ejection fraction of less than 20%, prior AICD implantation, as advanced COPD, atrial tachycardia, diabetes, pulmonary hypertension, sleep apnea, obesity, nicotine dependence, and daily EtOH use. Patient states that for the past several days he's noticed himself to be progressively more short of breath and had significant lower extremity edema. He went to see Dr. Moore in the office on Tuesday, was given IV Lasix and started on Zaroxolyn. He states that he started to put out excellent amount. And his breathing was overall improving, as well as the swelling in his lower extremities. Day prior to coming to the hospital he states that his urine output slowed down considerably, he was having some episodes of dizziness and lightheadedness with no clear-cut syncope. Presented to the emergency room for further evaluation and treatment. Chest x-ray on presentation here showed increased vascularity compared with old exam, no evidence of congestive heart failure. His EKG showed a ventricular pa ashleigh rhythm. Blood pressure ranging from 97/60-120/50, heart rate in the 70s. White blood cell count 8.7, hemoglobin 11.8, platelet count 197. Sodium 129, potassium 4.2, chloride 86, CO2 34, BUN 55, creatinine 2.6. Plasma lactic acid on admission 2.2, 1.3 this morning, troponins 0.05, 0.04, 0.04. BNP level 1830. Patient was seen and examined in the emergency room, complaints of feeling weak this morning, breathing is stable, denies any dizziness or lightheadedness at present. He had been resumed on his Lasix, Zaroxolyn, and Entresto, he was also given a bolus of 500 mL normal saline and started on a drip at 40 mL per hour. Nephrology consultation has been requested. At this point in time we will hold the Lasix , Zaroxolyn and Entresto for 24 hours. Past Medical History Past Medical History: Coronary Artery Disease (CAD), Chest Pain / Angina, Heart Failure, COPD, Diabetes Mellitus, Hyperlipidemia, Myocardial Infarction ([place]), Osteoarthritis (OA) Additional Past Medical History / Comment(s): Coronary artery disease with a previous bypass surgery, ischemic cardiomyopathy with ejection fraction of less than 20%,HOME 02 2-2.5 LITERS AT HS, COPD, obstructive sleep apnea with an AHI of 24 currently on auto CPAP unit, obesity, hypertension, AICD placement for ischemic cardiomyopathy, Cardiomyopathy, osteoarthritis, diabetes mellitus, hyperlipidemia, hypertension.past fx rt leg.tinnitus Last Myocardial Infarction Date:: UNSURE History of Any Multi-Drug Resistant Organisms: None Reported Past Surgical History: AICD, Coronary Bypass/CABG, Heart Catheterization, Orthopedic Surgery Additional Past Surgical History / Comment(s): Pacemaker and AICD- 10/2013. changed pacer 2018, CABG 1 vessel many yrs ago per pt, BILATERAL SHOULDER SURGERY , steel alcides in rt leg d/t fracture, bilat shoulders Past Anesthesia/Blood Transfusion Reactions: No Reported Reaction Type of Cardiac Device: Permanent Pacemaker, AICD Device Placement Date:: Past Psychological History: No Psychological Hx Reported Additional Psychological History / Comment(s): Pt resides with his spouse. He has a walker/cane/o2 2-2.5 liters n/c/nebulizer. he drives. Smoking Status: Current every day smoker Past Alcohol Use History: Daily Additional Past Alcohol Use History / Comment(s): Smokes half pack a day. Does drink 2 White Claws every day. Past Drug Use History: None Reported - Past Family History Mother History Unknown: Yes Father Family Medical History: Myocardial Infarction ([place]) Additional Family Medical History / Comment(s): Father of a [place] at the age of 56yrs. Brother(s) Family Medical History: Cancer Medications and Allergies Home Medications Medication Instructions Recorded Confirmed Type Albuterol Nebulized [Ventolin 2.5 mg INHALATION RT-QID PRN 10/19/18 01/22/20 History Nebulized] Apixaban [Eliquis] 5 mg PO BID 10/19/18 01/22/20 History Aspirin EC [Ecotrin Low Dose] 81 mg PO DAILY #90 tablet. 10/28/18 01/22/20 Rx Atorvastatin [Lipitor] 40 mg PO HS 11/01/18 01/22/20 History Sacubitril/Valsartan [Entresto 24 1 tab PO BID 11/01/18 01/22/20 History mg-26 mg Tablet] metFORMIN HCL [Glucophage] 500 mg PO AC-BID 11/01/18 01/22/20 History Albuterol Inhaler [Ventolin Hfa 1 puff INHALATION RT-QID 01/22/20 01/22/20 History Inhaler] Fluticasone/Salmeterol [Advair 1 puff INHALATION RT-BID 01/22/20 01/22/20 History 250-50 Diskus] Furosemide [Lasix] 40 mg PO BID@0730,1500 01/22/20 01/22/20 History Metolazone [Zaroxolyn] 5 mg PO DAILY 01/22/20 01/22/20 History Metoprolol Succinate (ER) [Toprol 50 mg PO DAILY 01/22/20 01/22/20 History Xl] Allergies Allergy/AdvReac Type Severity Reaction Status Date / Time Latex, Natural Rubber Allergy Rash/Hives Verified 01/22/20 20:28 levofloxacin [From Levaquin] Allergy Rash/Hives Verified 01/22/20 20:28 mold Allergy Rash/Hives Verified 01/22/20 20:28 prednisone Allergy Rash/Hives Verified 01/22/20 20:28 STEROIDS Allergy Rash/Hives Uncoded 11/01/18 11:18 Physical Exam Vitals: Vital Signs Temp Pulse Pulse Resp BP BP Pulse Ox 01/23/20 07:50 97.8 F 70 18 120/55 93 L 01/23/20 07:00 97.7 F 70 22 97/62 95 01/23/20 03:00 70 22 01/23/20 02:27 78 01/23/20 02:18 78 01/23/20 02:00 79 22 01/23/20 01:00 80 22 01/23/20 00:00 85 32 H 103/76 100 01/22/20 23:11 70 18 99/54 96 01/22/20 21:41 71 17 112/69 99 01/22/20 20:12 90 18 01/22/20 20:01 88 18 01/22/20 18:58 98.2 F 72 18 100 Intake and Output 01/22/20 01/23/20 01/23/20 22:59 06:59 14:59 Other: Weight 107.501 kg 107.501 kg PHYSICAL EXAMINATION: GENERAL: 64-year-old gentleman in no acute distress at the time of my examination HEENT: Head is atraumatic, normocephalic. Pupils equal, round. Sclera anicteric. Conjunctiva are clear. Mucous membranes of the mouth are moist. Neck is supple. There is no elevated jugular venous pressure. No carotid bruit is heard. HEART EXAMINATION: Heart S1 S2 1 systolic murmur is heard CHEST EXAMINATION: Lungs reveal scattered coarse wheezing throughout ABDOMEN: Soft, nontender. Bowel sounds are heard. No organomegaly noted. EXTREMITIES: 2+ peripheral pulses with no evidence of peripheral edema and no calf tenderness noted. NEUROLOGIC patient is awake, alert and oriented 3 . . Results 01/22/20 19:14 01/23/20 07:06 Cardiac Enzymes 01/22/20 01/22/20 01/23/20 Range/Units 19:25 19:25 01:16 AST 29 (17-59) U/L Troponin I 0.051 H* 0.047 H* (0.000-0.034) ng/mL 01/23/20 Range/Units 07:06 AST (17-59) U/L Troponin I 0.048 H* (0.000-0.034) ng/mL Coagulation 01/22/20 Range/Units 19:25 PT 10.5 (9.0-12.0) sec APTT 24.8 (22.0-30.0) sec CBC 01/22/20 Range/Units 19:14 WBC 8.7 (3.8-10.6) k/uL RBC 3.69 L (4.30-5.90) m/uL Hgb 11.8 L (13.0-17.5) gm/dL Hct 36.1 L (39.0-53.0) % Plt Count 197 (150-450) k/uL Comprehensive Metabolic Panel 01/22/20 01/23/20 Range/Units 19:25 07:06 Sodium 129 L 129 L (137-145) mmol/L Potassium 3.9 4.2 (3.5-5.1) mmol/L Chloride 84 L 86 L (98-107) mmol/L Carbon Dioxide 32 H 34 H (22-30) mmol/L BUN 47 H 55 H (9-20) mg/dL Creatinine 2.66 H 2.65 H (0.66-1.25) mg/dL Glucose 120 H 104 H (74-99) mg/dL Calcium 9.2 8.8 (8.4-10.2) mg/dL AST 29 (17-59) U/L ALT 21 (4-49) U/L Alkaline Phosphatase 104 (38-126) U/L Total Protein 6.9 (6.3-8.2) g/dL Albumin 4.3 (3.5-5.0) g/dL Current Medications Generic Name Dose Route Start Last Admin Trade Name Freq PRN Reason Stop Dose Admin Albuterol/Ipratropium 3 ml 01/23/20 08:00 Duoneb 0.5 Mg-3 Mg/3 Ml Soln INHALATION RT-QID BRO Albuterol/Ipratropium 3 ml 01/23/20 02:01 Duoneb 0.5 Mg-3 Mg/3 Ml Soln INHALATION RT-QID PRN Shortness Of Breath Or Wheezing Apixaban 5 mg 01/23/20 09:00 Eliquis PO BID [facility] Aspirin 81 mg 01/23/20 09:00 Aspirin PO DAILY [facility] Atorvastatin Calcium 40 mg 01/23/20 21:00 Lipitor PO HS [facility] Sodium Chloride 1,000 mls @ 40 mls/hr 01/22/20 22:00 01/22/20 22:47 Saline 0.9% IV 40 mls/hr .Q24H BRO Administration Metoprolol Succinate 50 mg 01/23/20 09:00 Toprol Xl PO DAILY [facility] Naloxone HCl 0.2 mg 01/22/20 21:47 Narcan IV Q2M PRN Opioid Reversal Intake and Output 01/22/20 01/23/20 01/23/20 22:59 06:59 14:59 Other: Weight 107.501 kg 107.501 kg 01/22/20 19:14 01/23/20 07:06 EKG Interpretations (text) EKG shows a ventricular paced rhythm Assessment and Plan Plan: Assessment and plan #1 acute renal failure, creatinine 2.6, baseline around 1.0 #2 chronic systolic congestive heart failure with recent exacerbation as an outpatient, patient started on Zaroxolyn and given IV Lasix as an outpatient #3 ischemic cardio myopathy with prior AICD implantation #4 coronary artery disease with prior bypass surgery #5 hypertension #6 diabetes #7 hyperlipidemia #8 nicotine dependence #9 EtOH use #10 abnormality in troponin, not consistent with acute coronary syndrome, likely secondary to abnormal renal function #11 hyponatremia Plan We will hold the patient's Lasix, Zaroxolyn, and Entresto for 24 hours. Repeat an echocardiogram with Doppler study, the most recent echo was performed in 2018 which revealed an ejection fraction of less than 20%, moderate mitral regurgitation. Continue hydration at 40 mL per hour. Further recommendations to follow. DNP note has been reviewed, I agree with a documented findings and plan of care. Patient was seen and examined.
[2020-01-23] MEDS: NICOTINE 21MG/24HR PATCH TRANSDERM SCH (10:50)
[2020-01-23] MEDS: IPRATROPIUM-ALBUTEROL 3 ML NEB INHALATION SCH ×4 (10:55→20:24)
[2020-01-23] MEDS: INSULIN ASPART (NovoLOG) 100 UNIT/ML VIAL SQ SCH ×3 (12:35→20:46)
[2020-01-23 12:52] LABS: Glucose,Whole Blood 80 mg/dL (75-99)
--- NOTE | 2020-01-23 14:02 | P.CNPUL ---
History of Present Illness Consult date: 01/23/20 Requesting physician: Rishi An Reason for consult: dyspnea Chief complaint: Shortness of breath and dizziness History of present illness: This is a very pleasant 64-year-old male patient with known history of obesity, COPD Oxygen dependent on 2-2-1/2 L, obstructive sleep apnea with an AHI of 24 currently on CPAP, morbid obesity, chronic and ongoing tobacco dependence, congestion heart failure with an ejection fraction of 20% and the patient has an AICD in place. Anticoagulated with Eliquis. In addition, the patient has history of coronary artery disease with previous bypass surgery and history of diabetes mellitus, hypertension and hyperlipidemia. The patient has had multiple hospitalization for exacerbation of COPD and CHF. Earlier this week he was having complaints of increasing shortness of breath and lower extremity edema was seen by his supervisor byproducts on 01/21/2020 was given a double dose of Lasix. Yesterday he took a total of 160 mg of Lasix. Then he developed dizzine ss and lightheadedness and presented to the emergency room last evening. X-ray showed no overt congestive heart failure. Lab results reveal sodium 129. Potassium 4.2. Creatinine 2.65. Troponin 0.047, 0.048. ProBNP 1830. He is seen today in consultation in the emergency room. He is awake and alert in no acute distress. Breathing easier today compared to yesterday. No peripheral edema. Somewhat bronchospastic and wheezy. Continues to maintain O2 saturations in the 90s on 3 L/m per nasal cannula. Review of Systems REVIEW OF SYSTEMS: CONSTITUTIONAL: Negative for dizziness, lightheadedness. Denies any recent significant weight loss or weight gain. EYES: Denies change in vision. EARS, NOSE, MOUTH, THROAT: Denies headaches, denies sore throat. CARDIOVASCULAR: Denies chest pain, palpitations or syncopal episodes. RESPIRATORY: Positive shortness of breath shortness of breath, no cough, congestion or hemoptysis. GASTROINTESTINAL: Denies change in appetite, denies abdominal pain GENITOURINARY: Denies hematuria, denies infections. MUSKULOSKELETAL: Denies pain, denies swelling. INTEGUMENTARY: Denies rash, denies eczema. NEUROLOGICAL: Denies recent memory loss, no recent seizure activity. PSYCHIATRIC: Denies anxiety, denies depression. HEMATOLOGIC/LYMPHATIC: Denies anemia, denies enlarged lymph nodes. Past Medical History Past Medical History: Coronary Artery Disease (CAD), Chest Pain / Angina, Heart Failure, COPD, Diabetes Mellitus, Hyperlipidemia, Myocardial Infarction ([place]), Osteoarthritis (OA) Additional Past Medical History / Comment(s): Coronary artery disease with a previous bypass surgery, ischemic cardiomyopathy with ejection fraction of less than 20%,HOME 02 2-2.5 LITERS AT HS, COPD, obstructive sleep apnea with an AHI of 24 currently on auto CPAP unit, obesity, hypertension, AICD placement for ischemic cardiomyopathy, Cardiomyopathy, osteoarthritis, diabetes mellitus, hyperlipidemia, hypertension.past fx rt leg.tinnitus Last Myocardial Infarction Date:: UNSURE History of Any Multi-Drug Resistant Organisms: None Reported Past Surgical History: AICD, Coronary Bypass/CABG, Heart Catheterization, Orthopedic Surgery Additional Past Surgical History / Comment(s): Pacemaker and AICD- 10/2013. changed pacer 2018, CABG 1 vessel many yrs ago per pt, BILATERAL SHOULDER SURGERY , steel alcides in rt leg d/t fracture, bilat shoulders Past Anesthesia/Blood Transfusion Reactions: No Reported Reaction Type of Cardiac Device: Permanent Pacemaker, AICD Device Placement Date:: Past Psychological History: No Psychological Hx Reported Additional Psychological History / Comment(s): Pt resides with his spouse. He has a walker/cane/o2 2-2.5 liters n/c/nebulizer. he drives. Smoking Status: Current every day smoker Past Alcohol Use History: Daily Additional Past Alcohol Use History / Comment(s): Smokes half pack a day. Does drink 2 White Claws every day. Past Drug Use History: None Reported - Past Family History Mother History Unknown: Yes Father Family Medical History: Myocardial Infarction ([place]) Additional Family Medical History / Comment(s): Father of a [place] at the age of 56yrs. Brother(s) Family Medical History: Cancer Medications and Allergies Home Medications Medication Instructions Recorded Confirmed Type Albuterol Nebulized [Ventolin 2.5 mg INHALATION RT-QID PRN 10/19/18 01/22/20 History Nebulized] Apixaban [Eliquis] 5 mg PO BID 10/19/18 01/22/20 History Aspirin EC [Ecotrin Low Dose] 81 mg PO DAILY #90 tablet. 10/28/18 01/22/20 Rx Atorvastatin [Lipitor] 40 mg PO HS 11/01/18 01/22/20 History Sacubitril/Valsartan [Entresto 24 1 tab PO BID 11/01/18 01/22/20 History mg-26 mg Tablet] metFORMIN HCL [Glucophage] 500 mg PO AC-BID 11/01/18 01/22/20 History Albuterol Inhaler [Ventolin Hfa 1 puff INHALATION RT-QID 01/22/20 01/22/20 History Inhaler] Fluticasone/Salmeterol [Advair 1 puff INHALATION RT-BID 01/22/20 01/22/20 History 250-50 Diskus] Furosemide [Lasix] 40 mg PO BID@0730,1500 01/22/20 01/22/20 History Metolazone [Zaroxolyn] 5 mg PO DAILY 01/22/20 01/22/20 History Metoprolol Succinate (ER) [Toprol 50 mg PO DAILY 01/22/20 01/22/20 History Xl] Allergies Allergy/AdvReac Type Severity Reaction Status Date / Time Latex, Natural Rubber Allergy Rash/Hives Verified 01/22/20 20:28 levofloxacin [From Levaquin] Allergy Rash/Hives Verified 01/22/20 20:28 mold Allergy Rash/Hives Verified 01/22/20 20:28 prednisone Allergy Rash/Hives Verified 01/22/20 20:28 STEROIDS Allergy Rash/Hives Uncoded 11/01/18 11:18 Physical Exam Vitals: Vital Signs Temp Pulse Pulse Resp BP BP Pulse Ox 01/23/20 11:55 90 16 01/23/20 11:48 80 16 01/23/20 10:57 70 18 95/61 98 01/23/20 07:50 97.8 F 70 18 120/55 93 L 01/23/20 07:00 97.7 F 70 22 97/62 95 01/23/20 03:00 70 22 01/23/20 02:27 78 01/23/20 02:18 78 01/23/20 02:00 79 22 01/23/20 01:00 80 22 01/23/20 00:00 85 32 H 103/76 100 01/22/20 23:11 70 18 99/54 96 01/22/20 21:41 71 17 112/69 99 01/22/20 20:12 90 18 01/22/20 20:01 88 18 01/22/20 18:58 98.2 F 72 18 100 Intake and Output 01/22/20 01/23/20 01/23/20 22:59 06:59 14:59 Output Total 900 Balance -900 Output: Urine 900 Other: Voiding Method Indwelling Catheter Weight 107.501 kg 107.501 kg GENERAL EXAM: Alert, active, doesn't 64-year-old gentleman, on 3 L nasal cannula, comfortable in no apparent distress. HEAD: Normocephalic. EYES: Normal reaction of pupils, equal size. NOSE: Clear with pink turbinates. THROAT: No erythema or exudates. NECK: No masses, no JVD. CHEST: No chest wall deformity. LUNGS: Equal air entry with faint crackles in the posterior bases, end expiratory wheeze, diminished. CVS: S1 and S2 normal with no audible murmur, regular rhythm. ABDOMEN: No hepatosplenomegaly, normal bowel sounds, no guarding or rigidity. SPINE: No scoliosis or deformity SKIN: No rashes CENTRAL NERVOUS SYSTEM: No focal deficits, tone is normal in all 4 extremities. EXTREMITIES: There is no peripheral edema. No clubbing, no cyanosis. Peripheral pulses are intact. Results - Laboratory Findings CBC and BMP: 01/22/20 19:14 01/23/20 07:06 PT/INR, D-dimer PT 10.5 sec (9.0-12.0) 01/22/20 19:25 INR 1.0 (<1.2) 01/22/20 19:25 Abnormal lab findings: Abnormal Labs 01/22/20 01/22/20 01/22/20 19:14 19:25 19:25 RBC 3.69 L Hgb 11.8 L Hct 36.1 L RDW 15.6 H Sodium 129 L Chloride 84 L Carbon Dioxide 32 H BUN 47 H Creatinine 2.66 H Glucose 120 H POC Glucose (mg/dL) Plasma Lactic Acid Meng Total Bilirubin 2.0 H Troponin I 0.051 H* 01/22/20 01/22/20 01/23/20 19:37 22:40 01:16 RBC Hgb Hct RDW Sodium Chloride Carbon Dioxide BUN Creatinine Glucose POC Glucose (mg/dL) Plasma Lactic Acid Meng 2.1 H* 2.2 H* Total Bilirubin Troponin I 0.047 H* 01/23/20 01/23/20 01/23/20 07:06 07:06 07:58 RBC Hgb Hct RDW Sodium 129 L Chloride 86 L Carbon Dioxide 34 H BUN 55 H Creatinine 2.65 H Glucose 104 H POC Glucose (mg/dL) 130 H Plasma Lactic Acid Meng Total Bilirubin Troponin I 0.048 H* Assessment and Plan Assessment: 1 Acute hypoxic respiratory failure secondary to an acute exacerbation of systolic congestive heart failure along with acute exacerbation of chronic obstructive pulmonary disease 2 Acute kidney injury secondary to excess diuretics 3 Dizziness secondary to above 2 Known history of ischemic cardiomyopathy status post AICD, ejection fraction of less than 20% 3 Coronary artery disease with previous bypass surgery 4 Chronic and ongoing tobacco dependence 5 Hypertension 6 Hyperlipidemia 7 Diabetes mellitus 8 Chronic renal failure with stage III kidney disease 9 Obesity with a BMI of 32.1 10 Obstructive sleep apnea with an AHI of 24 currently on a APAP treatment 11 Diabetic peripheral neuropathy 12 Osteoarthritis 13 Daily alcohol use Plan: The patient was seen and evaluated by Dr. Iraheta Chest x-ray and labs reviewed Hold diuretics for now Gentle fluid resuscitation Continue bronchodilators and add Symbicort, prednisone Anticoagulated with Eliquis CIWA protocol for potential alcohol withdrawal Again educated regarding the importance of complete smoking cessation Nicoderm patch in place We'll continue to follow and make further recommendations based on his clinical status I, the cosigning physician, performed a history & physical examination of the patient. Lungs sounds with faint bilateral end expiratory wheeze, faint crackles in the posterior bases, diminished Maintaining good O2 saturations in the 90s on 3 L/m per nasal cannula. I discussed the assessment and plan of care with my nurse practitioner, Narcisa Graham. I attest to the above consultation as dictated by her. Time with Patient: Greater than 30
--- NOTE | 2020-01-23 17:03 | P.NPCON ---
History of Present Illness - Reason for Consult acute renal failure - History of Present Illness Reason for consultation: Acute kidney injury History of present illness: Patient is a 64-year-old male seen in renal consultation for acute kidney injury. Patient baseline creatinine from January 2019 is near 1. It was elevated at 2.66 on admission and is stable at 2.65 this morning. Patient has a history of systolic CHF with ejection fraction of less than 20% with AICD implantation. Patient states over the last couple of weeks he's been progressively getting more short of breath and edematous. He saw his synthetic soil blocks pulper in the office and was given a dose of IV Lasix and was also started on Zaroxolyn. Patient states his edema improved and he continue taking the Zaroxolyn daily along with Lasix twice daily as well. Patient states his edema improved. However he's been feeling more lightheaded and dizzy but denies any syncopal episodes. Patient came to the hospital for further treatment. He was noted to be in acute kidney injury. He received a 500 mL bolus in the ER and is now maintained on normal saline at 40 mL an hour. He was also on Entresto which is currently held. He denies any chest pain or shortness of breath. No hematuria or dysuria. No vomiting or diarrhea. No abdominal pain. Oral intake is fair. Vital signs are stable. General: The patient appeared well nourished and normally developed. HEENT: Head exam is unremarkable. Neck is without jugular venous distension. LUNGS: Lungs are clear to auscultation and percussion. Breath sounds decreased. HEART: Rate and Rhythm are regular. ABDOMEN: Soft, nontender. Obese. EXTREMITITES: No clubbing, cyanosis, or edema. Past Medical History Past Medical History: Coronary Artery Disease (CAD), Chest Pain / Angina, Heart Failure, COPD, Diabetes Mellitus, Hyperlipidemia, Myocardial Infarction (SD), Osteoarthritis (OA) Additional Past Medical History / Comment(s): Coronary artery disease with a previous bypass surgery, ischemic cardiomyopathy with ejection fraction of less than 20%,HOME 02 2-2.5 LITERS AT HS, COPD, obstructive sleep apnea with an AHI of 24 currently on auto CPAP unit, obesity, hypertension, AICD placement for ischemic cardiomyopathy, Cardiomyopathy, osteoarthritis, diabetes mellitus, hyperlipidemia, hypertension.past fx rt leg.tinnitus Last Myocardial Infarction Date:: UNSURE History of Any Multi-Drug Resistant Organisms: None Reported Past Surgical History: AICD, Coronary Bypass/CABG, Heart Catheterization, Orthopedic Surgery Additional Past Surgical History / Comment(s): Pacemaker and AICD- 10/2013. changed pacer 2018, CABG 1 vessel many yrs ago per pt, BILATERAL SHOULDER SURGERY , steel alcides in rt leg d/t fracture, bilat shoulders Past Anesthesia/Blood Transfusion Reactions: No Reported Reaction Type of Cardiac Device: Permanent Pacemaker, AICD Device Placement Date:: Past Psychological History: No Psychological Hx Reported Additional Psychological History / Comment(s): Pt resides with his spouse. He has a walker/cane/o2 2-2.5 liters n/c/nebulizer. he drives. Smoking Status: Current every day smoker Past Alcohol Use History: Daily Additional Past Alcohol Use History / Comment(s): Smokes half pack a day. Does drink 2 [place] every day. Past Drug Use History: None Reported - Past Family History Mother History Unknown: Yes Father Family Medical History: Myocardial Infarction (SD) Additional Family Medical History / Comment(s): Father of a SD at the age of 56yrs. Brother(s) Family Medical History: Cancer Medications and Allergies Home Medications Medication Instructions Recorded Confirmed Type Albuterol Nebulized [Ventolin 2.5 mg INHALATION RT-QID PRN 10/19/18 01/22/20 History Nebulized] Apixaban [Eliquis] 5 mg PO BID 10/19/18 01/22/20 History Aspirin EC [Ecotrin Low Dose] 81 mg PO DAILY #90 tablet. 10/28/18 01/22/20 Rx Atorvastatin [Lipitor] 40 mg PO HS 11/01/18 01/22/20 History Sacubitril/Valsartan [Entresto 24 1 tab PO BID 11/01/18 01/22/20 History mg-26 mg Tablet] metFORMIN HCL [Glucophage] 500 mg PO AC-BID 11/01/18 01/22/20 History Albuterol Inhaler [Ventolin Hfa 1 puff INHALATION RT-QID 01/22/20 01/22/20 History Inhaler] Fluticasone/Salmeterol [Advair 1 puff INHALATION RT-BID 01/22/20 01/22/20 History 250-50 Diskus] Furosemide [Lasix] 40 mg PO BID@0730,1500 01/22/20 01/22/20 History Metolazone [Zaroxolyn] 5 mg PO DAILY 01/22/20 01/22/20 History Metoprolol Succinate (ER) [Toprol 50 mg PO DAILY 01/22/20 01/22/20 History Xl] Allergies Allergy/AdvReac Type Severity Reaction Status Date / Time Latex, Natural Rubber Allergy Rash/Hives Verified 01/22/20 20:28 levofloxacin [From Levaquin] Allergy Rash/Hives Verified 01/22/20 20:28 mold Allergy Rash/Hives Verified 01/22/20 20:28 prednisone Allergy Rash/Hives Verified 01/22/20 20:28 STEROIDS Allergy Rash/Hives Uncoded 11/01/18 11:18 Physical Exam Vitals: Vital Signs Temp Pulse Pulse Resp BP BP Pulse Ox 01/23/20 16:00 73 16 01/23/20 15:46 84 01/23/20 15:38 92 01/23/20 13:55 97.6 F 73 87/53 99 01/23/20 11:55 90 16 01/23/20 11:48 80 16 01/23/20 10:57 70 18 95/61 98 01/23/20 07:50 97.8 F 70 18 120/55 93 L 01/23/20 07:00 97.7 F 70 22 97/62 95 01/23/20 03:00 70 22 01/23/20 02:27 78 01/23/20 02:18 78 01/23/20 02:00 79 22 01/23/20 01:00 80 22 01/23/20 00:00 85 32 H 103/76 100 01/22/20 23:11 70 18 99/54 96 01/22/20 21:41 71 17 112/69 99 01/22/20 20:12 90 18 01/22/20 20:01 88 18 01/22/20 18:58 98.2 F 72 18 100 Intake and Output 01/23/20 01/23/20 01/23/20 06:59 14:59 22:59 Output Total 900 Balance -900 Output: Urine 900 Other: Voiding Method Indwelling Catheter Indwelling Catheter Weight 107.501 kg Results - Lab Results Most recent lab results Calcium 8.8 mg/dL (8.4-10.2) 01/23/20 07:06 01/22/20 19:14 01/23/20 07:06 Assessment and Plan Plan: Assessment: 1. Acute kidney injury secondary to ATN secondary to overdiuresis. Creatinine stable at 2.65 today. 2. Hypovolemic hyponatremia. 3. Chronic systolic CHF with ejection fraction of less than 20% status post AICD placement. 4. Diabetes mellitus. Plan: Hold diuretics and Entresto. Maintain gentle IV hydration. Check urinalysis. Check renal ultrasound. Continue to monitor renal function and urine output. Thank you for the consultation. I will continue to follow the patient with you during his hospital stay.
[2020-01-23] MEDS: THIAMINE 100 MG TAB PO SCH (17:24)
[2020-01-23 17:25] LABS: Glucose,Whole Blood 133 mg/dL (75-99)
--- NOTE | 2020-01-23 18:04 | US ---
EXAMINATION TYPE: US kidneys/renal and bladder DATE OF EXAM: 01/23/2020 COMPARISON: CT December 04, 2017. CLINICAL HISTORY: venancio. VENANCIO. EXAM MEASUREMENTS: Right Kidney: 12.3 x 5.4 x 5.8 cm Left Kidney: 11.4 x 5.9 x 5.8 cm Right Kidney: Ill-defined hypoechoic area seen measurin.0 x 2.6 x 2.1 cm. Measures upper limits o f normal. Left Kidney: Hyperechoic area seen measurin.8 x 0.6 x 0.5 cm. Bladder: Patient has catheter. Not well evaluated. Bilateral Jets seen: No Poorly visualized hypoechoic area upper pole right kidney likely corresponds to the 2.7 cm simple blair earing thin-walled cyst series 5 image 31. Technologist pyle 8 x 5 mm nonspecific nodular shadowing hyperechoic focus left kidney. No hydronephrosis present bilaterally. Arteaga catheter in decompressed bladder. IMPRESSION: Suboptimal study without hydronephrosis seen bilaterally.
[2020-01-23 20:24] LABS: Glucose,Whole Blood 160 mg/dL (75-99)
[2020-01-23] MEDS: ATORVASTATIN 40 MG TAB PO SCH (20:46)
[2020-01-23] MEDS: SODIUM CHLORIDE 0.9% 1,000 ML IV SCH (20:54)
[2020-01-24 06:15] LABS: Glucose,Whole Blood 123 mg/dL (75-99)
[2020-01-24] MEDS: THIAMINE 100 MG TAB PO SCH ×2 (06:34→17:27)
[2020-01-24] MEDS: INSULIN ASPART (NovoLOG) 100 UNIT/ML VIAL SQ SCH ×4 (06:35→20:43)
[2020-01-24] MEDS: IPRATROPIUM-ALBUTEROL 3 ML NEB INHALATION SCH ×4 (07:10→20:12)
[2020-01-24 08:04] LABS: Calcium 8.9 mg/dL (8.4-10.2); Magnesium 2.3 mg/dL (1.6-2.3); Potassium 4.1 mmol/L (3.5-5.1)
[2020-01-24] MEDS: ASPIRIN 81 MG PO SCH (08:48)
[2020-01-24] MEDS: APIXABAN 5 MG TAB PO SCH ×2 (08:48→20:13)
[2020-01-24] MEDS: NICOTINE 21MG/24HR PATCH TRANSDERM SCH (08:48)
--- NOTE | 2020-01-24 09:25 | P.PN ---
Subjective This is a pleasant 64 years old male with past medical history of coronary artery disease, heart failure, COPD, diabetes mellitus, hyperlipidemia, o steoarthritis, ischemic cardiomyopathy with ejection fraction less than 20%, status post CABG and AICD chronic hypoxic respiratory failure on home oxygen 2- 2.5 L/m. Obstructive sleep apnea, on CPAP, obesity. He follows with Dr. Birmingham radiology transcriptionist and Dr. Iraheta practice professional. This patient of Dr. Angulo. Presents because of dyspnea of 1 week duration with no chest pain or coughing. No leg swelling. No dizziness or palpitation. No change in bowel habits. Last night after the Lasix he could not be and a Arteaga catheter was inserted He smokes half pack per day, drinks 2 cups every other days and no illicit drugs Vitals are stable. Labs showing sodium 129, creatinine 2.6, baseline is 0.8- 1.1. CBC is unremarkable, hemoglobin 11.8. INR is 1.0. Troponin is elevated at 0.042, proBNP slightly elevated at 1 or 30, lactic acid is normal at 1.3. liver Enzymes not elevated. Chest x-ray: No acute process by radiologist but not CHF. EKG showing paced rhythm at 70 with QTC 552 In the emergency room he received breathing treatment and 500 mL of normal saline bolus. 01/24/2020 Patient is awake and alert, he still have some tachypnea/dyspnea at rest. He is been having cough and was somewhat phlegm for the last 2 months with no recent worsening. He denies chest pain. No dizziness or palpitation. He is hemodynamically stable, blood pressure on the low normal site 90/49. he is saturating 96% on 3 L oxygen, at home he uses 3 L of oxygen as well but mainly at night. His creatinine is slightly improved from 2.6 down to 2.3, his troponin is chronically elevated and mostly from its renal failure as well. Hyponatremia on admission his improvement. UA is ordered and is pending. Renal ultrasound: No hydronephrosis. He remains on normal saline 40-50 mL per hour Lasix, Zaroxolyn and interest are still on hold. Patient remains on normal saline. Also he is on Eliquis 5 mg. We will start him on steroids, and doxycycline Review of Systems CONSTITUTIONAL: No fever, no malaise, no fatigue. HEENT: No recent visual problems or hearing problems. Denied any sore throat. CARDIOVASCULAR: no palpitations, no syncope. PULMONARY: no hemoptysis. No chest wall tenderness GASTROINTESTINAL: No diarrhea, no nausea, no vomiting, no abdominal pain. Normoactive bowel sounds. NEUROLOGICAL: No headaches, no weakness, no numbness. HEMATOLOGICAL: Denies any bleeding or petechiae. GENITOURINARY: Denies any burning micturition, frequency, or urgency. MUSCULOSKELETAL/RHEUMATOLOGICAL: Denies any joint pain, swelling, or any muscle pain. ENDOCRINE: Denies any polyuria or polydipsia. Active Medications Generic Name Dose Route Start Last Admin Trade Name Freq PRN Reason Stop Dose Admin Albuterol/Ipratropium 3 ml 01/23/20 08:00 01/24/20 07:10 Duoneb 0.5 Mg-3 Mg/3 Ml Soln INHALATION 3 ml RT-QID BRO Administration Albuterol/Ipratropium 3 ml 01/23/20 02:01 Duoneb 0.5 Mg-3 Mg/3 Ml Soln INHALATION RT-QID PRN Shortness Of Breath Or Wheezing Apixaban 5 mg 01/23/20 09:00 01/24/20 08:48 Eliquis PO 5 mg BID BRO Administration Aspirin 81 mg 01/23/20 09:00 01/24/20 08:48 Aspirin PO 81 mg DAILY BRO Administration Atorvastatin Calcium 40 mg 01/23/20 21:00 01/23/20 20:46 Lipitor PO 40 mg HS BRO Administration Sodium Chloride 1,000 mls @ 50 mls/hr 01/22/20 22:00 01/23/20 20:54 Saline 0.9% IV 40 mls/hr .Q20H BRO Administration Insulin Aspart 0 unit 01/23/20 12:30 01/24/20 06:35 Novolog SQ Not Given ACHS [facility] Protocol Lorazepam 1 mg 01/23/20 09:38 Ativan IV Q2HR PRN CIWA 8 or 9 Lorazepam 1 mg 01/23/20 09:38 Ativan IV Q1HR PRN CIWA 10 to 15 Lorazepam 2 mg 01/23/20 09:38 Ativan IV 01/25/20 09:38 Q10M PRN CIWA 16 or higher Methylprednisolone Sodium Succinate 40 mg 01/24/20 09:30 Solu-Medrol IV Q8HR BRO Metoprolol Succinate 50 mg 01/23/20 09:00 01/23/20 09:41 Toprol Xl PO 50 mg DAILY BRO Administration Naloxone HCl 0.2 mg 01/22/20 21:47 Narcan IV Q2M PRN Opioid Reversal Nicotine 1 patch 01/23/20 09:45 01/24/20 08:48 Habitrol 21mg/24hr Patch TRANSDERM 1 patch DAILY BRO Administration Thiamine HCl 100 mg 01/23/20 17:30 01/24/20 06:34 Vitamin B-1 PO 100 mg BID-W/MEALS BRO Administration Objective - Vital Signs Vital signs: Vital Signs Temp 97.5 F L 01/24/20 07:51 Pulse 70 01/24/20 07:51 Resp 18 01/24/20 07:51 BP 90/49 01/24/20 08:47 Pulse Ox 96 01/24/20 07:51 Intake & Output 01/23/20 01/24/20 01/24/20 18:59 06:59 18:59 Intake Total 240 360 480 Output Total 900 2600 Balance -660 -2240 480 Weight 110.223 kg Intake: Intake, IV Titration 360 Amount Sodium Chloride 0.9% 1, 360 000 ml @ 40 mls/hr IV . Q24H [facility] Rx#:[id number] Oral 240 480 Output: Urine 900 2600 Other: Voiding Method Indwelling Catheter Indwelling Catheter - Exam -GENERAL: The patient is alert and oriented x3, not in any acute distress. Obese HEENT: Pupils are round and equally reacting to light. EOMI. No scleral icterus. No conjunctival pallor. Normocephalic, atraumatic. No pharyngeal erythema. No thyromegaly. CARDIOVASCULAR: S1 and S2 present. No murmurs, rubs, or gallops. -PULMONARY: Chest is clear to auscultation, bilateral expiratory wheezing with prolonged expiration, no basal crackers ABDOMEN: Soft, nontender, nondistended, normoactive bowel sounds. No palpable organomegaly. MUSCULOSKELETAL: No joint swelling o deformity. EXTREMITIES: No cyanosis, clubbing, or pedal edema. NEUROLOGICAL: Gross neurological examination did not reveal any focal deficits. SKIN: No rashes. no petechiae. - Labs CBC & Chem 7: 01/22/20 19:14 01/24/20 07:13 Labs: Abnormal Lab Results - Last 24 Hours (Table) 01/23/20 01/23/20 01/24/20 Range/Units 17:22 20:22 06:14 Sodium (137-145) mmol/L Chloride (98-107) mmol/L Carbon Dioxide (22-30) mmol/L BUN (9-20) mg/dL Creatinine (0.66-1.25) mg/dL Glucose (74-99) mg/dL POC Glucose (mg/dL) 133 H 160 H 123 H (75-99) mg/dL 01/24/20 Range/Units 07:13 Sodium 133 L (137-145) mmol/L Chloride 90 L (98-107) mmol/L Carbon Dioxide 34 H (22-30) mmol/L BUN 55 H (9-20) mg/dL Creatinine 2.30 H (0.66-1.25) mg/dL Glucose 114 H (74-99) mg/dL POC Glucose (mg/dL) (75-99) mg/dL Assessment and Plan Assessment: Acute COPD exacerbation Acute kidney injury, secondary to excessive diuresis Chronic ischemic cardiomyopathy with ejection fraction less than 20%, status post AICD Elevated troponin, mostly related from cardiac leak with renal failure. Coronary artery disease status post CABG, Not an active issue Mitral regurgitation Chronic atrial fibrillation, on Eliquis Nicotine dependence Possible alcohol abuse/use disorder Diabetes mellitus Hypertension Hyperlipidemia COPD Chronic hypoxic respiratory theater on home oxygen of 2-2.5L/M Osteoarthritis Obstructive sleep apnea on CPAP Plan: This is a pleasant 64 years old male who presents with possible non-STEMI. He is already on Eliquis. Continue with the Eliquis and aspirin. Continue gentle hydration while holding diuretics and entresto. Cardiology consult. Nephrology already been consulted. Start steroids and doxycycline. Check sputum culture Labs and medication were reviewed.. Continue same treatment. Continue with symptomatic treatment. Resume home medication. Monitor lytes and vitals. DVT and GI prophylaxis. Further recommendations of the clinical course of the patient DVT prophylaxis: Subcutaneous heparin GI Prophylaxis: Pepcid PT/OT: Pending Prognosis is guarded
[2020-01-24] MEDS ORDERED: methylPREDNISolone SOD SUCCI 40 MG/ML 1 ML VIAL IV SCH (09:30)
[2020-01-24] MEDS: METOPROLOL SUCCINATE (ER) 50 MG TAB.ER.24H PO SCH (10:02)
--- NOTE | 2020-01-24 10:24 | P.PN ---
Subjective Patient is seen in follow-up for acute kidney injury. Creatinine was 2.66 on admission and is 2.3 today. He is maintained on normal saline at 40 mL an hour. Diuretics are held. No edema. No chest pain or shortness of breath at this time. He admits to wheezing. Vital signs are stable. Blood pressure on the lower side. General: The patient appeared well nourished and normally developed. HEENT: Head exam is unremarkable. Neck is without jugular venous distension. LUNGS: Breath sounds decreased. HEART: Rate and Rhythm are regular. First and second heart sounds normal. No murmurs, rubs or gallops. ABDOMEN: soft, nontender. EXTREMITITES: No clubbing, cyanosis, or edema. Objective - Vital Signs Vital signs: Vital Signs Temp 97.5 F L 01/24/20 07:51 Pulse 70 01/24/20 08:00 Resp 18 01/24/20 08:00 BP 90/49 01/24/20 08:47 Pulse Ox 96 01/24/20 07:51 Intake & Output 01/23/20 01/24/20 01/24/20 18:59 06:59 18:59 Intake Total 240 360 480 Output Total 900 2600 Balance -660 -2240 480 Weight 110.223 kg Intake: Intake, IV Titration 360 Amount Sodium Chloride 0.9% 1, 360 000 ml @ 50 mls/hr IV . Q20H [facility] Rx#:[id number] Oral 240 480 Output: Urine 900 2600 Other: Voiding Method Indwelling Catheter Indwelling Catheter Indwelling Catheter - Labs CBC & Chem 7: 01/22/20 19:14 01/24/20 07:13 Labs: Abnormal Lab Results - Last 24 Hours (Table) 01/23/20 01/23/20 01/24/20 Range/Units 17:22 20:22 06:14 Sodium (137-145) mmol/L Chloride (98-107) mmol/L Carbon Dioxide (22-30) mmol/L BUN (9-20) mg/dL Creatinine (0.66-1.25) mg/dL Glucose (74-99) mg/dL POC Glucose (mg/dL) 133 H 160 H 123 H (75-99) mg/dL 01/24/20 Range/Units 07:13 Sodium 133 L (137-145) mmol/L Chloride 90 L (98-107) mmol/L Carbon Dioxide 34 H (22-30) mmol/L BUN 55 H (9-20) mg/dL Creatinine 2.30 H (0.66-1.25) mg/dL Glucose 114 H (74-99) mg/dL POC Glucose (mg/dL) (75-99) mg/dL Assessment and Plan Plan: Assessment: 1. Acute kidney injury secondary to ATN secondary to overdiuresis. Renal function improving. Creatinine 2.66 on admission and is 2.3 today. No hydronephrosis noted on kidney ultrasound. 2. Hypovolemic hyponatremia. Better. 3. Chronic systolic CHF with ejection fraction of less than 20% status post AICD placement. 4. Diabetes mellitus. 5. Hypotension related to underlying cardiomyopathy. Plan: Hold diuretics and Entresto. Add midodrine. Maintain gentle IV hydration. Follow-up urinalysis. Check a.m. cortisol level. Continue to monitor renal function and urine output. I advised the patient to monitor his weight closely at home. He may resume Lasix 40 mg twice daily starting January 25 and to increase to 60 mg if notices worsening of edema or more than 2-3 pound weight gain. Follow up outpatient in 1-2 weeks post discharge.
[2020-01-24] MEDS: MIDODRINE 5 MG TAB PO SCH ×2 (11:00→17:27)
[2020-01-24] MEDS: DOXYCYCLINE 100 MG in SODIUM CHLORIDE 0.9% 100 ML IVPB SCH ×2 (11:00→20:13)
[2020-01-24 11:50] LABS: Appearance,Urine Clear (Clear); Bacteria,Urine Occasional /hpf; Bilirubin,Urine Negative (Negative); Blood,Urine Moderate (Negative); Color,Urine Yellow; Glucose,Urine (UA) Negative (Negative); Ketones,Urine Negative (Negative); Leukocyte Esterase,Urine Large (Negative); Mucus,Urine Rare /hpf; Nitrite,Urine Negative (Negative); PH, Urine 5.5 (5.0-8.0); Protein,Urine Trace (Negative); RBC,Urine 28 /hpf (0-5); Specific Gravity,Urine 1.013 (1.001-1.035); Squamous Epithelial Cell,Urine <1 /hpf (0-4); WBC,Urine 39 /hpf (0-5)
[2020-01-24 11:56] LABS: Glucose,Whole Blood 112 mg/dL (75-99)
--- NOTE | 2020-01-24 12:06 | P.PN ---
Subjective Progress Note Date: 01/24/20 Principal diagnosis: Acute hypoxic respiratory failure secondary to an acute exacerbation of systolic congestive heart failure/COPD This is a very pleasant 64-year-old male patient with known history of obesity, COPD Oxygen dependent on 2-2-1/2 L, obstructive sleep apnea with an AHI of 24 currently on CPAP, morbid obesity, chronic and ongoing tobacco dependence, congestion heart failure with an ejection fraction of 20% and the patient has an AICD in place. Anticoagulated with Eliquis. In addition, the patient has history of coronary artery disease with previous bypass surgery and history of diabetes mellitus, hypertension and hyperlipidemia. The patient has had multip hospitalization for exacerbation of COPD and CHF. Earlier this week he was having complaints of increasing shortness of breath and lower extremity edema was seen by his locomotive driver on 01/21/2020 was given a double dose of Lasix. Yesterday he took a total of 160 mg of Lasix. Then he developed dizziness and lightheadedness and presented to the emergency room last evening. X-ray showed no overt congestive heart failure. Lab results reveal sodium 129. Potassium 4.2. Creatinine 2.65. Troponin 0.047, 0.048. ProBNP 1830. He is seen today in consultation in the emergency room. He is awake and alert in no acute distress. Breathing easier today compared to yesterday. No peripheral edema. Somewhat bronchospastic and wheezy. Continues to maintain O2 saturations in the 90s on 3 L/m per nasal cannula. The patient is seen today 01/24/2020 and follow-up on the selective care unit. He is awake and alert in no acute distress. Currently sitting up in a chair at the bedside. Denies any worsening shortness of breath, cough or congestion. Maintaining O2 saturations in the mid 90s on room air. Less bronchospastic and wheezy today. He is afebrile. Hemodynamically stable. Remains in a negative balance. Sodium 133. Potassium 4.1. Creatinine 2.30. Urinalysis with moderate blood and large leukocytes high WBCs. Abdominal/bladder ultrasound did not reveal evidence of hydronephrosis. Currently on doxycycline. He's on bronchodilators and IV Solu-Medrol. Anticoagulated with Eliquis. No signs of delirium tremens currently. NicoDerm patch in place. Objective - Vital Signs Vital signs: Vital Signs Temp 97.8 F 01/24/20 11:54 Pulse 69 01/24/20 11:54 Resp 18 01/24/20 11:54 BP 158/75 01/24/20 11:54 Pulse Ox 96 01/24/20 11:54 Intake & Output 01/23/20 01/24/20 01/24/20 18:59 06:59 18:59 Intake Total 240 360 480 Output Total 900 2600 Balance -660 -2240 480 Weight 110.223 kg Intake: Intake, IV Titration 360 Amount Sodium Chloride 0.9% 1, 360 000 ml @ 50 mls/hr IV . Q20H [facility] Rx#:[id number] Oral 240 480 Output: Urine 900 2600 Other: Voiding Method Indwelling Catheter Indwelling Catheter Indwelling Catheter - Exam GENERAL EXAM: Alert, active, pleasant 64-year-old gentleman, on room air, comfortable in no apparent distress. HEAD: Normocephalic. EYES: Normal reaction of pupils, equal size. NOSE: Clear with pink turbinates. THROAT: No erythema or exudates. NECK: No masses, no JVD. CHEST: No chest wall deformity. LUNGS: Equal air entry with faint crackles in the posterior bases, diminished. CVS: S1 and S2 normal with no audible murmur, regular rhythm. ABDOMEN: No hepatosplenomegaly, normal bowel sounds, no guarding or rigidity. SPINE: No scoliosis or deformity SKIN: No rashes CENTRAL NERVOUS SYSTEM: No focal deficits, tone is normal in all 4 extremities. EXTREMITIES: There is no peripheral edema. No clubbing, no cyanosis. Peripheral pulses are intact. - Labs CBC & Chem 7: 01/22/20 19:14 01/24/20 07:13 Labs: Abnormal Lab Results - Last 24 Hours (Table) 01/23/20 01/23/20 01/24/20 Range/Units 17:22 20:22 06:14 Sodium (137-145) mmol/L Chloride (98-107) mmol/L Carbon Dioxide (22-30) mmol/L BUN (9-20) mg/dL Creatinine (0.66-1.25) mg/dL Glucose (74-99) mg/dL POC Glucose (mg/dL) 133 H 160 H 123 H (75-99) mg/dL Urine Protein (Negative) Urine Blood (Negative) Ur Leukocyte Esterase (Negative) Urine RBC (0-5) /hpf Urine WBC (0-5) /hpf Urine Bacteria (None) /hpf Urine Mucus (None) /hpf 01/24/20 01/24/20 01/24/20 Range/Units 07:13 10:28 11:46 Sodium 133 L (137-145) mmol/L Chloride 90 L (98-107) mmol/L Carbon Dioxide 34 H (22-30) mmol/L BUN 55 H (9-20) mg/dL Creatinine 2.30 H (0.66-1.25) mg/dL Glucose 114 H (74-99) mg/dL POC Glucose (mg/dL) 112 H (75-99) mg/dL Urine Protein Trace H (Negative) Urine Blood Moderate H (Negative) Ur Leukocyte Esterase Large H (Negative) Urine RBC 28 H (0-5) /hpf Urine WBC 39 H (0-5) /hpf Urine Bacteria Occasional H (None) /hpf Urine Mucus Rare H (None) /hpf Assessment and Plan Assessment: 1 Acute hypoxic respiratory failure secondary to an acute exacerbation of systolic congestive heart failure along with acute exacerbation of chronic obstructive pulmonary disease, improved and on room air 2 Acute kidney injury secondary to excess diuretics 3 Dizziness secondary to above 2 Known history of ischemic cardiomyopathy status post AICD, ejection fraction of less than 20% 3 Coronary artery disease with previous bypass surgery 4 Chronic and ongoing tobacco dependence 5 Hypertension 6 Hyperlipidemia 7 Diabetes mellitus 8 Chronic renal failure with stage III kidney disease 9 Obesity with a BMI of 32.1 10 Obstructive sleep apnea with an AHI of 24 currently on a APAP treatment 11 Diabetic peripheral neuropathy 12 Osteoarthritis 13 Daily alcohol use Plan: The patient was seen and evaluated by Dr. Iraheta Continue bronchodilators, steroids and add Symbicort CIWA protocol for potential alcohol withdrawal, educated regarding moderation are complete alcohol cessation Again educated regarding the importance of complete smoking cessation Nicoderm patch in place We'll continue to follow and make further recommendations based on his clinical status I, the cosigning physician, performed a history & physical examination of the patient. Lungs sounds with faint crackles in the posterior bases, diminished Maintaining good O2 saturations in the 90s on room air. I discussed the assessment and plan of care with my nurse practitioner, Narcisa Graham. I attest to the above consultation as dictated by her.
--- NOTE | 2020-01-24 12:23 | P.PN ---
Subjective Progress Note Date: 01/24/20 This is a 64-year-old gentleman who follows regularly with Dr. Birmingham in the office. He has a known history of systolic congestive heart failure, coronary artery disease with prior bypass surgery, ischemic cardio myopathy with documented ejection fraction of less than 20%, prior AICD implantation, as advanced COPD, atrial tachycardia, diabetes, pulmonary hypertension, sleep apnea, obesity, nicotine dependence, and daily EtOH use. Patient states that for the past several days he's noticed himself to be progressively more short of breath and had significant lower extremity edema. He went to see Dr. Moore in the office on Tuesday, was given IV Lasix and started on Zaroxolyn. He states that he started to put out excellent amount. And his breathing was overall improving, as well as the swelling in his lower extremities. Day prior to coming to the hospital he states that his urine output slowed down considerably, he was having some episodes of dizziness and lightheadedness with no clear-cut syncope. Presented to the emergency room for further evaluation and treatment. Chest x-ray on presentation here showed increased vascularity compared with old exam, no evidence of congestive heart failure. His EKG showed a ventricular paced rhythm. Blood pressure ranging from 97/60-120/50, heart rate in the 70s. White blood cell count 8.7, hemoglobin 11.8, platelet count 197. Sodium 129, potassium 4.2, chloride 86, CO2 34, BUN 55, creatinine 2.6. Plasma lactic acid on admission 2.2, 1.3 this morning, troponins 0.05, 0.04, 0.04. BNP level 1830. Patient was seen and examined in the emergency room, complaints of feeling weak this morning, breathing is stable, denies any dizziness or lightheadedness at present. He had been resumed on his Lasix, Zaroxolyn, and Entresto, he was also given a bolus of 500 mL normal saline and started on a drip at 40 mL per hour. Nephrology consultation has been requested. At this point in time we will hold the Lasix , Zaroxolyn and Entresto for 24 hours. 01/24/2020 Patient was seen and examined this morning, feels well overall, continues to have significant wheezing and rhonchi which according to the patient are quite normal for him. His creatinine today is 2.3, BUN 55, potassium 4.1. He is currently off of his Lasix, Zaroxolyn, and Entresto. Patient was seen by nephrology this morning, from his opinion, the patient could be discharged home. His recommendation is that we hold the Lasix for another 48 hours, resume it on Tuesday at 40 mg by mouth twice a day, continue to hold metolazone and interest oh at this time. Objective - Vital Signs Vital signs: Vital Signs Temp 97.7 F 01/24/20 11:54 Pulse 70 01/24/20 11:54 Resp 18 01/24/20 11:54 BP 118/69 01/24/20 11:54 Pulse Ox 96 01/24/20 11:54 Intake & Output 01/23/20 01/24/20 01/24/20 18:59 06:59 18:59 Intake Total 240 360 480 Output Total 900 2600 Balance -660 -2240 480 Weight 110.223 kg Intake: Intake, IV Titration 360 Amount Sodium Chloride 0.9% 1, 360 000 ml @ 50 mls/hr IV . Q20H [facility] Rx#:[id number] Oral 240 480 Output: Urine 900 2600 Other: Voiding Method Indwelling Catheter Indwelling Catheter Indwelling Catheter - Exam PHYSICAL EXAMINATION: GENERAL: 64-year-old gentleman in no acute distress at the time of my examination HEENT: Head is atraumatic, normocephalic. Pupils equal, round. Sclera anicteric. Conjunctiva are clear. Mucous membranes of the mouth are moist. Neck is supple. There is no elevated jugular venous pressure. No carotid bruit is heard. HEART EXAMINATION: Heart S1 S2 1 systolic murmur is heard CHEST EXAMINATION: Lungs reveal scattered coarse wheezing throughout ABDOMEN: Soft, nontender. Bowel sounds are heard. No organomegaly noted. EXTREMITIES: 2+ peripheral pulses with no evidence of peripheral edema and no calf tenderness noted. NEUROLOGIC patient is awake, alert and oriented 3 . - Labs CBC & Chem 7: 01/22/20 19:14 01/24/20 07:13 Labs: Abnormal Lab Results - Last 24 Hours (Table) 01/23/20 01/23/20 01/24/20 Range/Units 17:22 20:22 06:14 Sodium (137-145) mmol/L Chloride (98-107) mmol/L Carbon Dioxide (22-30) mmol/L BUN (9-20) mg/dL Creatinine (0.66-1.25) mg/dL Glucose (74-99) mg/dL POC Glucose (mg/dL) 133 H 160 H 123 H (75-99) mg/dL Urine Protein (Negative) Urine Blood (Negative) Ur Leukocyte Esterase (Negative) Urine RBC (0-5) /hpf Urine WBC (0-5) /hpf Urine Bacteria (None) /hpf Urine Mucus (None) /hpf 01/24/20 01/24/20 01/24/20 Range/Units 07:13 10:28 11:46 Sodium 133 L (137-145) mmol/L Chloride 90 L (98-107) mmol/L Carbon Dioxide 34 H (22-30) mmol/L BUN 55 H (9-20) mg/dL Creatinine 2.30 H (0.66-1.25) mg/dL Glucose 114 H (74-99) mg/dL POC Glucose (mg/dL) 112 H (75-99) mg/dL Urine Protein Trace H (Negative) Urine Blood Moderate H (Negative) Ur Leukocyte Esterase Large H (Negative) Urine RBC 28 H (0-5) /hpf Urine WBC 39 H (0-5) /hpf Urine Bacteria Occasional H (None) /hpf Urine Mucus Rare H (None) /hpf Assessment and Plan Plan: Assessment and plan #1 acute renal failure, creatinine 2.3 baseline around 1.0 #2 chronic systolic congestive heart failure with recent exacerbation as an outpatient, patient started on Zaroxolyn and given IV Lasix as an outpatient #3 ischemic cardio myopathy with prior AICD implantation #4 coronary artery disease with prior bypass surgery #5 hypertension #6 diabetes #7 hyperlipidemia #8 nicotine dependence #9 EtOH use #10 abnormality in troponin, not consistent with acute coronary syndrome, likely secondary to abnormal renal function #11 hyponatremia Plan From cardiology's perspective, diuretics continue to be on hold which included the Lasix and Zaroxolyn, Entresto, continues to be on hold as well. From our perspective the patient may be able to be discharged home. Recommendations from nephrology's perspective are for the patient to continue to hold Lasix for 48 hours, resume on Tuesday at 40 mg one tablet by mouth twice a day. Continue to hold Zaroxolyn and Entresto until seen in the office. Lytes BUN and creatinine on Tuesday. DNP note has been reviewed, I agree with a documented findings and plan of care. Patient was seen and examined.
[2020-01-24 16:44] LABS: Glucose,Whole Blood 115 mg/dL (75-99)
[2020-01-24] MEDS: SYMBICORT 160-4.5 MCG INHALER INHALATION SCH (20:12)
[2020-01-24] MEDS: ATORVASTATIN 40 MG TAB PO SCH (20:13)
[2020-01-24 20:33] LABS: Glucose,Whole Blood 154 mg/dL (75-99)
[2020-01-24] MEDS: SODIUM CHLORIDE 0.9% 1,000 ML IV SCH (21:30)
[2020-01-25 04:04] VITALS: TEMP 97.6
[2020-01-25 06:01] LABS: Glucose,Whole Blood 140 mg/dL (75-99)
[2020-01-25] MEDS: INSULIN ASPART (NovoLOG) 100 UNIT/ML VIAL SQ SCH ×2 (06:22→15:27)
[2020-01-25] MEDS: THIAMINE 100 MG TAB PO SCH (06:22)
[2020-01-25] MEDS: MIDODRINE 5 MG TAB PO SCH (06:22)
[2020-01-25] MEDS: IPRATROPIUM-ALBUTEROL 3 ML NEB INHALATION SCH ×3 (07:07→16:10)
[2020-01-25] MEDS: SYMBICORT 160-4.5 MCG INHALER INHALATION SCH (07:08)
[2020-01-25 08:17] LABS: Calcium 8.8 mg/dL (8.4-10.2); Magnesium 2.3 mg/dL (1.6-2.3); Potassium 3.6 mmol/L (3.5-5.1)
[2020-01-25] MEDS: ASPIRIN 81 MG PO SCH (08:47)
[2020-01-25] MEDS: DOXYCYCLINE 100 MG in SODIUM CHLORIDE 0.9% 100 ML IVPB SCH (08:47)
[2020-01-25] MEDS: APIXABAN 5 MG TAB PO SCH (08:47)
[2020-01-25] MEDS: NICOTINE 21MG/24HR PATCH TRANSDERM SCH (08:47)
[2020-01-25] MEDS ORDERED: predniSONE 20 MG TAB PO SCH (09:00)
[2020-01-25] MEDS ORDERED: METOPROLOL SUCCINATE (ER) 25 MG TAB.ER.24H PO SCH (09:00)
--- NOTE | 2020-01-25 10:03 | P.PN ---
Subjective Patient is seen in follow-up for acute kidney injury. Creatinine was 2.66 on admission and is 1.69 today. Diuretics are held. No edema. No chest pain or shortness of breath at this time. Blood pressure better with addition of Midodrine. Vital signs are stable. General: The patient appeared well nourished and normally developed. HEENT: Head exam is unremarkable. Neck is without jugular venous distension. LUNGS: Breath sounds decreased. HEART: Rate and Rhythm are regular. ABDOMEN: soft, nontender. EXTREMITITES: No clubbing, cyanosis, or edema. Objective - Vital Signs Vital signs: Vital Signs Temp 97.6 F 01/25/20 03:54 Pulse 70 01/25/20 08:00 Resp 18 01/25/20 08:00 BP 130/70 01/25/20 07:44 Pulse Ox 97 01/25/20 07:44 Intake & Output 01/24/20 01/25/20 01/25/20 18:59 06:59 18:59 Intake Total 1440 250 Output Total 700 1875 200 Balance 740 -1625 -200 Weight 113 kg Intake: Intake, IV Titration 250 Amount Doxycycline 100 mg In 100 Sodium Chloride 0.9% 100 ml @ 100 mls/hr IVPB Q12HR [facility] Rx#:[id number] Sodium Chloride 0.9% 1, 150 000 ml @ 50 mls/hr IV . Q20H [facility] Rx#:[id number] Oral 1440 Output: Urine 700 1875 200 Other: Voiding Method Indwelling Catheter Indwelling Catheter Indwelling Catheter - Labs CBC & Chem 7: 01/22/20 19:14 01/25/20 07:52 Labs: Abnormal Lab Results - Last 24 Hours (Table) 01/24/20 01/24/20 01/24/20 Range/Units 10:28 11:46 16:38 Sodium (137-145) mmol/L Chloride (98-107) mmol/L Carbon Dioxide (22-30) mmol/L BUN (9-20) mg/dL Creatinine (0.66-1.25) mg/dL Glucose (74-99) mg/dL POC Glucose (mg/dL) 112 H 115 H (75-99) mg/dL Urine Protein Trace H (Negative) Urine Blood Moderate H (Negative) Ur Leukocyte Esterase Large H (Negative) Urine RBC 28 H (0-5) /hpf Urine WBC 39 H (0-5) /hpf Urine Bacteria Occasional H (None) /hpf Urine Mucus Rare H (None) /hpf 01/24/20 01/25/20 01/25/20 Range/Units 20:32 06:00 07:52 Sodium 136 L (137-145) mmol/L Chloride 95 L (98-107) mmol/L Carbon Dioxide 34 H (22-30) mmol/L BUN 49 H (9-20) mg/dL Creatinine 1.69 H (0.66-1.25) mg/dL Glucose 120 H (74-99) mg/dL POC Glucose (mg/dL) 154 H 140 H (75-99) mg/dL Urine Protein (Negative) Urine Blood (Negative) Ur Leukocyte Esterase (Negative) Urine RBC (0-5) /hpf Urine WBC (0-5) /hpf Urine Bacteria (None) /hpf Urine Mucus (None) /hpf Microbiology - Last 24 Hours (Table) 01/24/20 12:00 Gram Stain - Preliminary Sputum Assessment and Plan Plan: Assessment: 1. Acute kidney injury secondary to ATN secondary to overdiuresis. Renal function improving. Creatinine 2.66 on admission and is down to 1.69 today. No hydronephrosis noted on kidney ultrasound. Trace proteinuria on UA. 2. Hypovolemic hyponatremia. Better. 3. Chronic systolic CHF with ejection fraction of less than 20% status post AICD placement. 4. Diabetes mellitus. 5. Hypotension related to underlying cardiomyopathy. Better with addition of midodrine. Cortisol level normal. Plan: Continue to monitor renal function and urine output. I advised the patient to monitor his weight closely at home. He may resume Lasix 40 mg twice daily in the next 24-48 hours and to increase to 60 mg if notices worsening of edema or more than 2-3 pound weight gain. Follow up outpatient in 1-2 weeks post discharge.
--- NOTE | 2020-01-25 11:25 | P.PN ---
Subjective Progress Note Date: 01/25/20 This is a 64-year-old gentleman who follows regularly with Dr. Birmingham in the office. He has a known history of systolic congestive heart failure, coronary artery disease with prior bypass surgery, ischemic cardio myopathy with documented ejection fraction of less than 20%, prior AICD implantation, as advanced COPD, atrial tachycardia, diabetes, pulmonary hypertension, sleep apnea, obesity, nicotine dependence, and daily EtOH use. Patient states that for the past several days he's noticed himself to be progressively more short of breath and had significant lower extremity edema. He went to see Dr. Moore in the office on Tuesday, was given IV Lasix and started on Zaroxolyn. He states that he started to put out excellent amount. And his breathing was overall improving, as well as the swelling in his lower extremities. Day prior to coming to the hospital he states that his urine output slowed down considerably, he was having some episodes of dizziness and lightheadedness with no clear-cut syncope. Presented to the emergency room for further evaluation and treatment. Chest x-ray on presentation here showed increased vascularity compared with old exam, no evidence of congestive heart failure. His EKG showed a ventricular paced rhythm. Blood pressure ranging from 97/60-120/50, heart rate in the 70s. White blood cell count 8.7, hemoglobin 11.8, platelet count 197. Sodium 129, potassium 4.2, chloride 86, CO2 34, BUN 55, creatinine 2.6. Plasma lactic acid on admission 2.2, 1.3 this morning, troponins 0.05, 0.04, 0.04. BNP level 1830. Patient was seen and examined in the emergency room, complaints of feeling weak this morning, breathing is stable, denies any dizziness or lightheadedness at present. He had been resumed on his Lasix, Zaroxolyn, and Entresto, he was also given a bolus of 500 mL normal saline and started on a drip at 40 mL per hour. Nephrology consultation has been requested. At this point in time we will hold the Lasix , Zaroxolyn and Entresto for 24 hours. 01/24/2020 Patient was seen and examined this morning, feels well overall, continues to have significant wheezing and rhonchi which according to the patient are quite normal for him. His creatinine today is 2.3, BUN 55, potassium 4.1. He is currently off of his Lasix, Zaroxolyn, and Entresto. Patient was seen by nephrology this morning, from his opinion, the patient could be discharged home. His recommendation is that we hold the Lasix for another 48 hours, resume it on Tuesday at 40 mg by mouth twice a day, continue to hold metolazone and interest oh at this time. 01/25/2020 Patient seen and examined this morning, denies any chest discomfort his breathing is stable. Blood pressure 130/70 with a heart rate in the 70s. Sodium 136, potassium 3.6, BUN 49, creatinine 1.6. Objective - Vital Signs Vital signs: Vital Signs Temp 97.6 F 01/25/20 03:54 Pulse 70 01/25/20 08:00 Resp 18 01/25/20 08:00 BP 130/70 01/25/20 07:44 Pulse Ox 97 01/25/20 07:44 Intake & Output 01/24/20 01/25/20 01/25/20 18:59 06:59 18:59 Intake Total 1440 250 240 Output Total 700 1875 200 Balance 740 -1625 40 Weight 113 kg Intake: Intake, IV Titration 250 Amount Doxycycline 100 mg In 100 Sodium Chloride 0.9% 100 ml @ 100 mls/hr IVPB Q12HR [facility] Rx#:[id number] Sodium Chloride 0.9% 1, 150 000 ml @ 50 mls/hr IV . Q20H [facility] Rx#:[id number] Oral 1440 240 Output: Urine 700 1875 200 Other: Voiding Method Indwelling Catheter Indwelling Catheter Indwelling Catheter - Exam PHYSICAL EXAMINATION: GENERAL: 64-year-old gentleman in no acute distress at the time of my examination HEENT: Head is atraumatic, normocephalic. Pupils equal, round. Sclera anicter ic. Conjunctiva are clear. Mucous membranes of the mouth are moist. Neck is supple. There is no elevated jugular venous pressure. No carotid bruit is heard. HEART EXAMINATION: Heart S1 S2 1 systolic murmur is heard CHEST EXAMINATION: Lungs reveal scattered coarse wheezing throughout ABDOMEN: Soft, nontender. Bowel sounds are heard. No organomegaly noted. EXTREMITIES: 2+ peripheral pulses with no evidence of peripheral edema and no calf tenderness noted. NEUROLOGIC patient is awake, alert and oriented 3 . - Labs CBC & Chem 7: 01/22/20 19:14 01/25/20 07:52 Labs: Abnormal Lab Results - Last 24 Hours (Table) 01/24/20 01/24/20 01/24/20 Range/Units 10:28 11:46 16:38 Sodium (137-145) mmol/L Chloride (98-107) mmol/L Carbon Dioxide (22-30) mmol/L BUN (9-20) mg/dL Creatinine (0.66-1.25) mg/dL Glucose (74-99) mg/dL POC Glucose (mg/dL) 112 H 115 H (75-99) mg/dL Urine Protein Trace H (Negative) Urine Blood Moderate H (Negative) Ur Leukocyte Esterase Large H (Negative) Urine RBC 28 H (0-5) /hpf Urine WBC 39 H (0-5) /hpf Urine Bacteria Occasional H (None) /hpf Urine Mucus Rare H (None) /hpf 01/24/20 01/25/20 01/25/20 Range/Units 20:32 06:00 07:52 Sodium 136 L (137-145) mmol/L Chloride 95 L (98-107) mmol/L Carbon Dioxide 34 H (22-30) mmol/L BUN 49 H (9-20) mg/dL Creatinine 1.69 H (0.66-1.25) mg/dL Glucose 120 H (74-99) mg/dL POC Glucose (mg/dL) 154 H 140 H (75-99) mg/dL Urine Protein (Negative) Urine Blood (Negative) Ur Leukocyte Esterase (Negative) Urine RBC (0-5) /hpf Urine WBC (0-5) /hpf Urine Bacteria (None) /hpf Urine Mucus (None) /hpf Microbiology - Last 24 Hours (Table) 01/24/20 12:00 Gram Stain - Preliminary Sputum Assessment and Plan Plan: Assessment and plan #1 acute renal failure, creatinine 2.3 baseline around 1.0 #2 chronic systolic congestive heart failure with recent exacerbation as an o utpatient, patient started on Zaroxolyn and given IV Lasix as an outpatient #3 ischemic cardio myopathy with prior AICD implantation #4 coronary artery disease with prior bypass surgery #5 hypertension #6 diabetes #7 hyperlipidemia #8 nicotine dependence #9 EtOH use #10 abnormality in troponin, not consistent with acute coronary syndrome, likely secondary to abnormal renal function #11 hyponatremia Plan From cardiology's perspective, diuretics continue to be on hold which included the Lasix and Zaroxolyn, Entresto, continues to be on hold as well. From our perspective the patient may be able to be discharged home. Recommendations from nephrology's perspective are for the patient to continue to hold Lasix for 48 hours, resume on Tuesday at 40 mg one tablet by mouth twice a day. Continue to hold Zaroxolyn and Entresto until seen in the office. Lytes BUN and creatinine on Tuesday. DNP note has been reviewed, I agree with a documented findings and plan of care. Patient was seen and examined.
[2020-01-25 11:49] LABS: Glucose,Whole Blood 122 mg/dL (75-99)
[2020-01-25 11:55] VITALS: BP 125/67; PULSE 70; RESP 70
--- NOTE | 2020-01-25 13:39 | P.PN ---
Subjective Progress Note Date: 01/25/20 Principal diagnosis: Acute hypoxic respiratory failure secondary to an acute exacerbation of systolic congestive heart failure/COPD This is a very pleasant 64-year-old male patient with known history of obesity, COPD Oxygen dependent on 2-2-1/2 L, obstructive sleep apnea with an AHI of 24 currently on CPAP, morbid obesity, chronic and ongoing tobacco dependence, congestion heart failure with an ejection fraction of 20% and the patient has an AICD in place. Anticoagulated with Eliquis. In addition, the patient has history of coronary artery disease with previous bypass surgery and history of diabetes mellitus, hypertension and hyperlipidemia. The patient has had multip hospitalization for exacerbation of COPD and CHF. Earlier this week he was having complaints of increasing shortness of breath and lower extremity edema was seen by his metal ceiling builder on 01/21/2020 was given a double dose of Lasix. Yesterday he took a total of 160 mg of Lasix. Then he developed dizziness and lightheadedness and presented to the emergency room last evening. X-ray showed no overt congestive heart failure. Lab results reveal sodium 129. Potassium 4.2. Creatinine 2.65. Troponin 0.047, 0.048. ProBNP 1830. He is seen today in consultation in the emergency room. He is awake and alert in no acute distress. Breathing easier today compared to yesterday. No peripheral edema. Somewhat bronchospastic and wheezy. Continues to maintain O2 saturations in the 90s on 3 L/m per nasal cannula. The patient is seen today 01/24/2020 and follow-up on the selective care unit. He is awake and alert in no acute distress. Currently sitting up in a chair at the bedside. Denies any worsening shortness of breath, cough or congestion. Maintaining O2 saturations in the mid 90s on room air. Less bronchospastic and wheezy today. He is afebrile. Hemodynamically stable. Remains in a negative balance. Sodium 133. Potassium 4.1. Creatinine 2.30. Urinalysis with moderate blood and large leukocytes high WBCs. Abdominal/bladder ultrasound did not reveal evidence of hydronephrosis. Currently on doxycycline. He's on bronchodilators and IV Solu-Medrol. Anticoagulated with Eliquis. No signs of delirium tremens currently. NicoDerm patch in place. The patient is seen today 01/25/2020 in follow-up on the selective care unit. He is awake and alert in no acute distress. Maintaining O2 saturations in the 90s on room air. He's been afebrile. Hemodynamically stable. Sputum culture reveals moderate gram-positive cocci in pairs and clusters. Sodium 136. Potassium 3.6. Creatinine 1.69. He remains on bronchodilators, prednisone. Anticoagulated with Eliquis. Currently on doxycycline. Objective - Vital Signs Vital signs: Vital Signs Temp 97.6 F 01/25/20 11:52 Pulse 70 01/25/20 11:52 Resp 70 H 01/25/20 11:52 BP 125/67 01/25/20 11:52 Pulse Ox 96 01/25/20 11:52 Intake & Output 01/24/20 01/25/20 01/25/20 18:59 06:59 18:59 Intake Total 1440 250 476 Output Total 700 1875 200 Balance 740 -1625 276 Weight 113 kg Intake: Intake, IV Titration 250 Amount Doxycycline 100 mg In 100 Sodium Chloride 0.9% 100 ml @ 100 mls/hr IVPB Q12HR [facility] Rx#:[id number] Sodium Chloride 0.9% 1, 150 000 ml @ 50 mls/hr IV . Q20H [facility] Rx#:[id number] Oral 1440 476 Output: Urine 700 1875 200 Other: Voiding Method Indwelling Catheter Indwelling Catheter Indwelling Catheter - Exam GENERAL EXAM: Alert, active, pleasant 64-year-old gentleman, on room air, comfortable in no apparent distress. HEAD: Normocephalic. EYES: Normal reaction of pupils, equal size. NOSE: Clear with pink turbinates. THROAT: No erythema or exudates. NECK: No masses, no JVD. CHEST: No chest wall deformity. LUNGS: Equal air entry with faint crackles in the posterior bases, diminished. CVS: S1 and S2 normal with no audible murmur, regular rhythm. ABDOMEN: No hepatosplenomegaly, normal bowel sounds, no guarding or rigidity. SPINE: No scoliosis or deformity SKIN: No rashes CENTRAL NERVOUS SYSTEM: No focal deficits, tone is normal in all 4 extremities. EXTREMITIES: There is no peripheral edema. No clubbing, no cyanosis. Peripheral pulses are intact. - Labs CBC & Chem 7: 01/22/20 19:14 01/25/20 07:52 Labs: Abnormal Lab Results - Last 24 Hours (Table) 01/24/20 01/24/20 01/25/20 Range/Units 16:38 20:32 06:00 Sodium (137-145) mmol/L Chloride (98-107) mmol/L Carbon Dioxide (22-30) mmol/L BUN (9-20) mg/dL Creatinine (0.66-1.25) mg/dL Glucose (74-99) mg/dL POC Glucose (mg/dL) 115 H 154 H 140 H (75-99) mg/dL 01/25/20 01/25/20 Range/Units 07:52 11:48 Sodium 136 L (137-145) mmol/L Chloride 95 L (98-107) mmol/L Carbon Dioxide 34 H (22-30) mmol/L BUN 49 H (9-20) mg/dL Creatinine 1.69 H (0.66-1.25) mg/dL Glucose 120 H (74-99) mg/dL POC Glucose (mg/dL) 122 H (75-99) mg/dL Microbiology - Last 24 Hours (Table) 01/24/20 12:00 Gram Stain - Preliminary Sputum Assessment and Plan Assessment: 1 Acute hypoxic respiratory failure secondary to an acute exacerbation of systolic congestive heart failure along with acute exacerbation of chronic obstructive pulmonary disease, improved and on room air, sputum cultures pending 2 Acute kidney injury secondary to excess diuretics, improving 3 Dizziness secondary to above 2 Known history of ischemic cardiomyopathy status post AICD, ejection fraction of less than 20% 3 Coronary artery disease with previous bypass surgery 4 Chronic and ongoing tobacco dependence 5 Hypertension 6 Hyperlipidemia 7 Diabetes mellitus 8 Chronic renal failure with stage III kidney disease 9 Obesity with a BMI of 32.1 10 Obstructive sleep apnea with an AHI of 24 currently on a APAP treatment 11 Diabetic peripheral neuropathy 12 Osteoarthritis 13 Daily alcohol use Plan: The patient was seen and evaluated by Dr. Iraheta Continue bronchodilators, steroids, Symbicort Continue doxycycline CIWA protocol in place, no evidence of delirium tremens, educated regarding moderation are complete alcohol cessation Again educated regarding the importance of complete smoking cessation Nicoderm patch in place We'll continue to follow and make further recommendations based on his clinical status I, the cosigning physician, performed a history & physical examination of the patient. Lungs sounds with faint crackles in the posterior bases, diminished Maintaining good O2 saturations in the 90s on room air. I discussed the assessment and plan of care with my nurse practitioner, Narcisa Graham. I attest to the above note as dictated by her.
--- NOTE | 2020-01-26 | P.DS ---
Providers Date of admission: 01/22/20 22:35 Attending physician: Leann Gray Consults: 01/23/20 09:08 Consult Physician Urgent Consulting Provider: Lazaro Dimas Consult Reason/Comments: ARF Do you want consulting provider notified?: Already Contacted 01/23/20 09:39 Consult Physician Routine Consulting Provider: Saulo Birmingham Consult Reason/Comments: CHF & ARF Do you want consulting provider notified?: Already Contacted Primary care physician: René Hernandez Hospital Course: Diagnoses: Acute COPD exacerbation Acute kidney injury, secondary to excessive diuresis Chronic ischemic cardiomyopathy with ejection fraction less than 20%, status post AICD Elevated troponin, mostly related from cardiac leak with renal failure. Coronary artery disease status post CABG, Not an active issue Mitral regurgitation Chronic atrial fibrillation, on Eliquis Nicotine dependence Possible alcohol abuse/use disorder Diabetes mellitus Hypertension Hyperlipidemia COPD Chronic hypoxic respiratory theater on home oxygen of 2-2.5L/M Osteoarthritis Obstructive sleep apnea on CPAP Hospital course: This is a pleasant 64 years old male with past medical history of coronary artery disease, heart failure, COPD, diabetes mellitus, hyperlipidemia, osteoarthritis, ischemic cardiomyopathy with ejection fraction less than 20%, status post CABG and AICD chronic hypoxic respiratory failure on home oxygen 2-2 .5 L/m. Obstructive sleep apnea, on CPAP, obesity. He follows with Dr. Birmingham video editing internship and Dr. Iraheta rehabilitation psychologist. This patient of Dr. Rowland. Presents because of dyspnea of 1 week duration with no chest pain, with a chronic cough for 2 months with white blood. On admission found to have acute kidney injury with creatinine elevated at 2.6, thought due to over diuresis, his been evaluated by video editing internship, hydroelectric plant mechanical engineer and rehabilitation psychologist, his Lasix, Zaroxolyn and entresto were held, also he was treated with gentle hydration, his creatinine improved and was trending down to 1.6 on the day of discharge Also showed that his dyspnea could be multifactorial related to his heart problem and COPD as well as renal disease. Today told me his breathing is at b is at. No chest pain or coughing. In the morning patient told me he does not have a right to home tomorrow I explained that hospital, provide right for him and he agreed to leave. Later on he told bedside nurse that he is concerned about starting Lasix and 2 days and he might develop CHF, we explained the patient that is now off IV fluids, no IV treatment and he would resume his Lasix in 2 days, and there is nothing differ ent will be done for him with her in the hospital or at his home, precise stent in the hospital high-risk of gali opportunistic or hospital-acquired infection, it was felt that the benefits of discharge and patient is higher than the risk of keeping the patient in the hospital. Patient was educated if he develops symptoms of dyspnea or anything concerning to call 911 on come to emergency room. Per staff patient agrees to be discharged Patient gender his baseline and his creatinine improved. I explained to the patient extensively the Chlorinator Operator recommendations to hold diuretics and resume Lasix 40 mg orally in 2 days, plus metolazone if needed (increased weight or swelling) Eventually patient was cleared for discharge by all consultants including pulmonary, cardiology and nephrology Problems and management plan were discussed with the patient and he verbalized understanding and acceptance Patient was found stable and can be discharged home however he needs follow-up as an outpatient. Patient was instructed to follow up with PCP within one week and patient agrees also appointments made for the patient with PCP, video editing internship, rehabilitation psychologist and hydroelectric plant mechanical engineer and he agrees to follow-up. Please see discharge instructions Gen: patient is a AAOx3, no distress CVS: S1-S2, RRR, no murmur Lungs: B/L CTA, no wheezing Abdomen: soft, no distention, no tenderness, positive bowel sounds Extremity: no leg edema or induration Time spent more than 35 minutes Patient Condition at Discharge: Good Plan - Discharge Summary Discharge Rx Participant: No New Discharge Prescriptions: New Nicotine 21Mg/24Hr Patch [Habitrol] 1 patch TRANSDERM DAILY #7 patch predniSONE 10 mg PO DIRECTED #26 tab Midodrine [ProAmatine] 5 mg PO AC-BID #20 tab Budesonide-Formot 160-4.5 Mcg [Symbicort 160-4.5 Mcg Inhaler] 2 puff INHALATION RT-BID #1 inh Metoprolol Succinate (ER) [Toprol XL] 25 mg PO DAILY #30 tab.er.24h Doxycycline [Vibramycin] 100 mg PO BID 3 Days #7 capsule Thiamine [Vitamin B-1] 100 mg PO DAILY #30 tab Continue Apixaban [Eliquis] 5 mg PO BID Albuterol Nebulized [Ventolin Nebulized] 2.5 mg INHALATION RT-QID PRN PRN Reason: Shortness Of Breath Aspirin EC [Ecotrin Low Dose] 81 mg PO DAILY #90 tablet. Atorvastatin [Lipitor] 40 mg PO HS Albuterol Inhaler [Ventolin Hfa Inhaler] 1 puff INHALATION RT-QID Fluticasone/Salmeterol [Advair 250-50 Diskus] 1 puff INHALATION RT-BID Discontinued metFORMIN HCL [Glucophage] 500 mg PO AC-BID Sacubitril/Valsartan [Entresto 24 mg-26 mg Tablet] 1 tab PO BID Metolazone [Zaroxolyn] 5 mg PO DAILY Metoprolol Succinate (ER) [Toprol Xl] 50 mg PO DAILY Furosemide [Lasix] 40 mg PO BID@0730,1500 Discharge Medication List Albuterol Nebulized [Ventolin Nebulized] 2.5 mg INHALATION RT-QID PRN 10/19/18 [History] Apixaban [Eliquis] 5 mg PO BID 10/19/18 [History] Aspirin EC [Ecotrin Low Dose] 81 mg PO DAILY #90 tablet. 10/28/18 [Rx] Atorvastatin [Lipitor] 40 mg PO HS 11/01/18 [History] Albuterol Inhaler [Ventolin Hfa Inhaler] 1 puff INHALATION RT-QID 01/22/20 [History] Fluticasone/Salmeterol [Advair 250-50 Diskus] 1 puff INHALATION RT-BID 01/22/20 [History] Budesonide-Formot 160-4.5 Mcg [Symbicort 160-4.5 Mcg Inhaler] 2 puff INHALATION RT-BID #1 inh 01/25/20 [Rx] Doxycycline [Vibramycin] 100 mg PO BID 3 Days #7 capsule 01/25/20 [Rx] Metoprolol Succinate (ER) [Toprol XL] 25 mg PO DAILY #30 tab.er.24h 01/25/20 [Rx] Midodrine [ProAmatine] 5 mg PO AC-BID #20 tab 01/25/20 [Rx] Nicotine 21Mg/24Hr Patch [Habitrol] 1 patch TRANSDERM DAILY #7 patch 01/25/20 [Rx] Thiamine [Vitamin B-1] 100 mg PO DAILY #30 tab 01/25/20 [Rx] predniSONE 10 mg PO DIRECTED #26 tab 01/25/20 [Rx] Follow up Appointment(s)/Referral(s): Mary Merritt MD [Primary Care Provider] - 02/05/20 11:00 am [facility], [NON-STAFF] - Lazaro Dimas DO [STAFF PHYSICIAN] - 01/29/20 1:20 am (call office for details/ instructions for appointment) Saulo Birmingham MD [STAFF PHYSICIAN] - 02/05/20 12:45 pm Gisella Iraheta MD [STAFF PHYSICIAN] - 02/08/20 3:00 pm (will be seen by Narcisa Graham) Patient Instructions/Handouts: Heart Failure (DC), Heart Failure (GEN), Acute Kidney Injury (GEN), COPD (Chronic Obstructive Pulmonary Disease) (DC), COPD (Chronic Obstructive Pulmonary Disease) (GEN) Activity/Diet/Wound Care/Special Instructions: Low-sodium diet, heart healthy diet Activity is limited ill you see your doctor Discharge instructions: wwe to continue to hold Lasix for 48 hours, resume on Tuesday at 40 mg one tablet by mouth twice a day. Continue to hold Zaroxolyn and Entresto until seen in the office. Discharge Disposition: HOME SELF-CARE
== END 2020-01-25 16:02 | disposition home health service (06) | DRG 291 ==
LOC: EC 18:46 → 3SCARD 22:35
PROVIDERS: ADMIT Internal Medicine; ATTEND Internal Medicine
DX: I13.0 Hypertensive heart and chronic kidney disease with heart failure and stage 1 through stage 4 chronic kidney disease, or unspecified chronic kidney disease (principal); I50.23 Acute on chronic systolic (congestive) heart failure; J96.21 Acute and chronic respiratory failure with hypoxia; N17.0 Acute kidney failure with tubular necrosis; I48.20 Chronic atrial fibrillation, unspecified; J44.1 Chronic obstructive pulmonary disease with (acute) exacerbation; E87.1 Hypo-osmolality and hyponatremia; F17.210 Nicotine dependence, cigarettes, uncomplicated; G47.33 Obstructive sleep apnea (adult) (pediatric); Z99.89 Dependence on other enabling machines and devices; I25.10 Atherosclerotic heart disease of native coronary artery without angina pectoris; I25.2 Old myocardial infarction; I25.5 Ischemic cardiomyopathy; I27.20 Pulmonary hypertension, unspecified; I34.0 Nonrheumatic mitral (valve) insufficiency; M19.90 Unspecified osteoarthritis, unspecified site; N18.3 Chronic kidney disease, stage 3 (moderate); T50.2X5A Adverse effect of carbonic-anhydrase inhibitors, benzothiadiazides and other diuretics, initial encounter; Z68.32 Body mass index [BMI] 32.0-32.9, adult; Z88.8 Allergy status to other drugs, medicaments and biological substances; Z88.1 Allergy status to other antibiotic agents; Z91.040 Latex allergy status; Z11.59 Encounter for screening for other viral diseases; F10.10 Alcohol abuse, uncomplicated; R79.89 Other specified abnormal findings of blood chemistry; Z79.01 Long term (current) use of anticoagulants; E11.22 Type 2 diabetes mellitus with diabetic chronic kidney disease; E11.42 Type 2 diabetes mellitus with diabetic polyneuropathy; E66.01 Morbid (severe) obesity due to excess calories; E78.5 Hyperlipidemia, unspecified; E86.0 Dehydration; E86.1 Hypovolemia; Z79.82 Long term (current) use of aspirin; Z79.84 Long term (current) use of oral hypoglycemic drugs; Z79.899 Other long term (current) drug therapy; Z82.49 Family history of ischemic heart disease and other diseases of the circulatory system; Z95.1 Presence of aortocoronary bypass graft; Z95.810 Presence of automatic (implantable) cardiac defibrillator; Z99.81 Dependence on supplemental oxygen; H93.19 Tinnitus, unspecified ear
CPT/HCPCS: 36415; 71046; 76770; 80048; 80053; 81001; 82533; 83605; 83735; 83880; 84484; 85025; 85610; 85730; 87070; 87205; 93005; 94640; 96360; 96372; 99285

== ENCOUNTER 2020-02-23 19:19 | Inpatient (IN) | payer MEDICARE ==
[2020-02-23] MEDS ORDERED: IPRATROPIUM-ALBUTEROL 3 ML NEB INHALATION STA (19:34)
--- NOTE | 2020-02-23 19:37 | ED ---
General Adult HPI - General Chief complaint: Shortness of Breath Stated complaint: SOB Time Seen by Provider: 02/23/20 19:26 Source: patient, EMS, RN notes reviewed Mode of arrival: EMS Limitations: no limitations - History of Present Illness Initial comments: Patient is a pleasant 64-year-old male presenting to the emergency Department with complaints of shortness of breath. Symptoms have been present for the past 3-4 days. Patient does have occasional dry cough. Symptoms are similar to previous COPD. Patient does have some mild chest discomfort however is mostly with cough. No fevers. Patient has been fatigued and generally weak. No leg p ain or leg swelling. - Related Data Home Medications Medication Instructions Recorded Confirmed Albuterol Nebulized [Ventolin 2.5 mg INHALATION RT-QID PRN 10/19/18 01/22/20 Nebulized] Apixaban [Eliquis] 5 mg PO BID 10/19/18 01/22/20 Atorvastatin [Lipitor] 40 mg PO HS 11/01/18 01/22/20 Albuterol Inhaler [Ventolin Hfa 1 puff INHALATION RT-QID 01/22/20 01/22/20 Inhaler] Fluticasone/Salmeterol [Advair 1 puff INHALATION RT-BID 01/22/20 01/22/20 250-50 Diskus] Previous Rx's Medication Instructions Recorded Aspirin EC [Ecotrin Low Dose] 81 mg PO DAILY #90 tablet. 10/28/18 Budesonide-Formot 160-4.5 Mcg 2 puff INHALATION RT-BID #1 inh 01/25/20 [Symbicort 160-4.5 Mcg Inhaler] Doxycycline [Vibramycin] 100 mg PO BID 3 Days #7 capsule 01/25/20 Metoprolol Succinate (ER) [Toprol 25 mg PO DAILY #30 tab.er.24h 01/25/20 XL] Midodrine [ProAmatine] 5 mg PO AC-BID #20 tab 01/25/20 Nicotine 21Mg/24Hr Patch [Habitrol] 1 patch TRANSDERM DAILY #7 patch 01/25/20 Thiamine [Vitamin B-1] 100 mg PO DAILY #30 tab 01/25/20 predniSONE 10 mg PO DIRECTED #26 tab 01/25/20 Allergies Allergy/AdvReac Type Severity Reaction Status Date / Time Latex, Natural Rubber Allergy Rash/Hives Verified 02/23/20 19:25 levofloxacin [From Levaquin] Allergy Rash/Hives Verified 02/23/20 19:25 mold Allergy Rash/Hives Verified 02/23/20 19:25 prednisone Allergy Rash/Hives Verified 02/23/20 19:25 STEROIDS Allergy Rash/Hives Uncoded 02/23/20 19:25 Review of Systems ROS Statement: Those systems with pertinent positive or pertinent negative responses have been documented in the HPI. ROS Other: All systems not noted in ROS Statement are negative. Constitutional: Denies: fever Eyes: Denies: eye pain ENT: Denies: ear pain Respiratory: Reports: cough, dyspnea Cardiovascular: Reports: as per HPI, chest pain Endocrine: Reports: fatigue Gastrointestinal: Reports: abdominal pain (Patient did have some right flank pain week ago) Genitourinary: Denies: dysuria Musculoskeletal: Denies: back pain Skin: Denies: rash Past Medical History Past Medical History: Coronary Artery Disease (CAD), Chest Pain / Angina, Heart Failure, COPD, Diabetes Mellitus, Hyperlipidemia, Myocardial Infarction (ID), Osteoarthritis (OA) Additional Past Medical History / Comment(s): Coronary artery disease with a previous bypass surgery, ischemic cardiomyopathy with ejection fraction of less than 20%,HOME 02 2-2.5 LITERS AT HS, COPD, obstructive sleep apnea with an AHI of 24 currently on auto CPAP unit, obesity, hypertension, AICD placement for ischemic cardiomyopathy, Cardiomyopathy, osteoarthritis, diabetes mellitus, hyperlipidemia, hypertension.past fx rt leg.tinnitus Last Myocardial Infarction Date:: UNSURE History of Any Multi-Drug Resistant Organisms: None Reported Past Surgical History: AICD, Coronary Bypass/CABG, Heart Catheterization, Orthopedic Surgery Additional Past Surgical History / Comment(s): Pacemaker and AICD- 10/2013. changed pacer 2018, CABG 1 vessel many yrs ago per pt, BILATERAL SHOULDER SURGERY , steel alcides in rt leg d/t fracture, bilat shoulders Past Anesthesia/Blood Transfusion Reactions: No Reported Reaction Type of Cardiac Device: Permanent Pacemaker, AICD Device Placement Date:: Past Psychological History: No Psychological Hx Reported Past Alcohol Use History: Daily Past Drug Use History: None Reported - Past Family History Mother History Unknown: Yes Father Family Medical History: Myocardial Infarction (ID) Additional Family Medical History / Comment(s): Father of a ID at the age of 56yrs. Brother(s) Family Medical History: Cancer General Exam Limitations: no limitations General appearance: alert, in no apparent distress Head exam: Present: normocephalic Eye exam: Present: normal appearance ENT exam: Present: normal oropharynx Neck exam: Present: normal inspection Respiratory exam: Present: respiratory distress (Mild respiratory distress with pursed lip expiration), wheezes Cardiovascular Exam: Present: regular rate, normal rhythm GI/Abdominal exam: Present: soft. Absent: tenderness Extremities exam: Present: normal inspection. Absent: pedal edema, calf tenderness Neurological exam: Present: alert Psychiatric exam: Present: normal affect, normal mood Skin exam: Present: normal color Course Vital Signs 02/23/20 02/23/20 02/23/20 19:20 19:40 19:52 Temperature 98.3 F Pulse Rate 68 70 73 Respiratory 18 Rate Blood Pressure 134/68 O2 Sat by Pulse 98 Oximetry 02/23/20 20:19 Temperature 98 F Pulse Rate 70 Respiratory 18 Rate Blood Pressure 136/60 O2 Sat by Pulse 99 Oximetry - Reevaluation(s) Reevaluation #1: 02/23/20 20:36 Patient again reevaluated and states he has had poor oral intake and limited activity over the past month or so. Lactic acid is felt to be due to dehydration. Electrodes are been replaced. EKG Findings - EKG Comments: EKG Findings:: Paced rhythm at 70. QRS 192. QTC 524. QTC 565. Superior axis. Wide QRS complex. Nonspecific ST-T. Medical Decision Making - Medical Decision Making Patient reevaluated and still with wheezing and mild dyspnea. Patient and family updated. Dr. connelly has been paged for admission with [facility] hospitalist group covering for Dr. Merritt. - Lab Data Result diagrams: 02/23/20 19:51 02/23/20 19:51 Lab Results 02/23/20 02/23/20 02/23/20 Range/Units 19:51 19:51 19:51 WBC 9.2 (3.8-10.6) k/uL RBC 3.16 L (4.30-5.90) m/uL Hgb 9.4 L D (13.0-17.5) gm/dL Hct 28.8 L (39.0-53.0) % MCV 91.3 D (80.0-100.0) fL MCH 29.9 (25.0-35.0) pg MCHC 32.8 (31.0-37.0) g/dL RDW 16.2 H (11.5-15.5) % Plt Count 210 (150-450) k/uL Neutrophils % 84 % Lymphocytes % 9 % Monocytes % 5 % Eosinophils % 1 % Basophils % 1 % Neutrophils # 7.7 (1.3-7.7) k/uL Lymphocytes # 0.8 L (1.0-4.8) k/uL Monocytes # 0.4 (0-1.0) k/uL Eosinophils # 0.1 (0-0.7) k/uL Basophils # 0.1 (0-0.2) k/uL Hypochromasia Slight Poikilocytosis Slight Anisocytosis Slight PT 12.0 (9.0-12.0) sec INR 1.2 H (<1.2) APTT 24.2 (22.0-30.0) sec Sodium 127 L (137-145) mmol/L Potassium 2.1 L* (3.5-5.1) mmol/L Chloride 72 L* (98-107) mmol/L Carbon Dioxide 38 H (22-30) mmol/L Anion Gap 17 mmol/L BUN 32 H (9-20) mg/dL Creatinine 1.58 H (0.66-1.25) mg/dL Est GFR (CKD-EPI)AfAm 53 (>60 ml/min/1.73 sqM) Est GFR (CKD-EPI)NonAf 46 (>60 ml/min/1.73 sqM) Glucose 224 H (74-99) mg/dL Plasma Lactic Acid Meng (0.7-2.0) mmol/L Calcium 8.6 (8.4-10.2) mg/dL Magnesium 1.7 (1.6-2.3) mg/dL Total Bilirubin 2.9 H (0.2-1.3) mg/dL AST 37 (17-59) U/L ALT 24 (4-49) U/L Alkaline Phosphatase 87 (38-126) U/L Creatine Kinase 190 H (55-170) U/L NT-Pro-B Natriuret Pep pg/mL Total Protein 6.1 L (6.3-8.2) g/dL Albumin 3.9 (3.5-5.0) g/dL 02/23/20 02/23/20 Range/Units 19:51 19:51 WBC (3.8-10.6) k/uL RBC (4.30-5.90) m/uL Hgb (13.0-17.5) gm/dL Hct (39.0-53.0) % MCV (80.0-100.0) fL MCH (25.0-35.0) pg MCHC (31.0-37.0) g/dL RDW (11.5-15.5) % Plt Count (150-450) k/uL Neutrophils % % Lymphocytes % % Monocytes % % Eosinophils % % Basophils % % Neutrophils # (1.3-7.7) k/uL Lymphocytes # (1.0-4.8) k/uL Monocytes # (0-1.0) k/uL Eosinophils # (0-0.7) k/uL Basophils # (0-0.2) k/uL Hypochromasia Poikilocytosis Anisocytosis PT (9.0-12.0) sec INR (<1.2) APTT (22.0-30.0) sec Sodium (137-145) mmol/L Potassium (3.5-5.1) mmol/L Chloride (98-107) mmol/L Carbon Dioxide (22-30) mmol/L Anion Gap mmol/L BUN (9-20) mg/dL Creatinine (0.66-1.25) mg/dL Est GFR (CKD-EPI)AfAm (>60 ml/min/1.73 sqM) Est GFR (CKD-EPI)NonAf (>60 ml/min/1.73 sqM) Glucose (74-99) mg/dL Plasma Lactic Acid Meng 5.1 H* (0.7-2.0) mmol/L Calcium (8.4-10.2) mg/dL Magnesium (1.6-2.3) mg/dL Total Bilirubin (0.2-1.3) mg/dL AST (17-59) U/L ALT (4-49) U/L Alkaline Phosphatase (38-126) U/L Creatine Kinase (55-170) U/L NT-Pro-B Natriuret Pep 9010 pg/mL Total Protein (6.3-8.2) g/dL Albumin (3.5-5.0) g/dL - Radiology Data Radiology results: image reviewed (Chest and abdominal x-ray revealed no acute process) Critical Care Time Critical Care Time: Yes Total Critical Care Time: 32 Disposition Clinical Impression: Acute exacerbation of chronic obstructive pulmonary disease (COPD), Hyponatremia, Hypokalemia, Dehydration Disposition: ADMITTED IP TO THIS HOSP Is patient prescribed a controlled substance at d/c from ED?: No Decision Time: 20:21
[2020-02-23 20:00] LABS: Anisocytosis Slight; Basophils # (A) 0.1 k/uL (0-0.2); Basophils % (A) 1 %; Eosinophils # (A) 0.1 k/uL (0-0.7); Eosinophils % (A) 1 %; HCT 28.8 % (39.0-53.0); Hypochromasia Slight; Lymphocytes # (A) 0.8 k/uL (1.0-4.8); Lymphocytes % (A) 9 %; MCH 29.9 pg (25.0-35.0); MCHC 32.8 g/dL (31.0-37.0); Mean Platelet Volume 8.2; Monocytes # (A) 0.4 k/uL (0-1.0); Monocytes % (A) 5 %; Neutrophils # (A) 7.7 k/uL (1.3-7.7); Neutrophils % (A) 84 %; Platelet Count 210 k/uL (150-450); Poikilocytosis Slight; RBC 3.16 m/uL (4.30-5.90); RDW 16.2 % (11.5-15.5); WBC 9.2 k/uL (3.8-10.6)
[2020-02-23 20:08] LABS: HGB 9.4 gm/dL (13.0-17.5)
[2020-02-23 20:09] LABS: MCV 91.3 fL (80.0-100.0)
[2020-02-23 20:10] LABS: INR 1.2 (<1.2); Partial Thromboplastin Time 24.2 sec (22.0-30.0)
[2020-02-23 20:15] LABS: Albumin 3.9 g/dL (3.5-5.0); Calcium 8.6 mg/dL (8.4-10.2); Magnesium 1.7 mg/dL (1.6-2.3); Total Bilirubin 2.9 mg/dL (0.2-1.3); Total Protein 6.1 g/dL (6.3-8.2)
[2020-02-23] MEDS ORDERED: methylPREDNISolone SOD SUCCI 125 MG/2 ML VIAL IV STA (20:19)
[2020-02-23] MEDS ORDERED: HYDROcodone/APAP 5-325MG 1 EACH TAB PO STA (20:23)
--- NOTE | 2020-02-23 20:23 | XR ---
EXAMINATION TYPE: XR chest 2V DATE OF EXAM: 02/23/2020 COMPARISON: 01/22/2020 HISTORY: Short of breath TECHNIQUE: 2 views FINDINGS: Heart is enlarged. There is left axillary pacemaker. There are sternal wires. Costophrenic angles are clear. There are chest leads. Lungs are clear of infiltrate. IMPRESSION: No active cardiopulmonary disease. No change.
--- NOTE | 2020-02-23 20:25 | XR ---
EXAMINATION TYPE: XR abdomen 1V DATE OF EXAM: 02/23/2020 COMPARISON: NONE HISTORY: Flank pain TECHNIQUE: 2 views supine FINDINGS: There is no sign of intestinal obstruction or pneumoperitoneum. Fecal pattern is normal. Th ere is multilevel spondylotic change in the lumbar spine. There are no pathologic calcifications over the kidneys. There is no evidence of a mass. IMPRESSION: Nonacute abdomen.
[2020-02-23 20:28] LABS: Potassium 2.1 mmol/L (3.5-5.1)
[2020-02-23] MEDS ORDERED: SODIUM CHLORIDE 0.9% 1,000 ML IV STA ×2 (20:30→20:31)
[2020-02-23] MEDS ORDERED: POTASSIUM CHLORIDE ER 20 MEQ TAB.ER PO STA (20:33)
[2020-02-23] MEDS ORDERED: POTASSIUM CHLORIDE 20 MEQ in WATER FOR INJECTION 1 100ML.BAG IVPB STA (20:39)
[2020-02-23] MEDS ORDERED: NALOXONE 0.4 MG/ML 1 ML VIAL IV PRN (20:41)
[2020-02-23] MEDS ORDERED: POTASSIUM CHLORIDE 20 MEQ in WATER FOR INJECTION 1 100ML.BAG IVPB ONE (20:45)
[2020-02-23] MEDS ORDERED: ASPIRIN 81 MG PO STA (20:49)
[2020-02-23] MEDS ORDERED: NITROGLYCERIN SL TABS 0.4 MG TAB SUBLINGUAL PRN (20:49)
[2020-02-23 22:19] LABS: Glucose,Whole Blood 142 mg/dL (75-99)
[2020-02-23] MEDS: POTASSIUM CHLORIDE ER 20 MEQ TAB.ER PO SCH (22:33)
[2020-02-23] MEDS: methylPREDNISolone SOD SUCCI 125 MG/2 ML VIAL IV SCH (22:34)
[2020-02-23] MEDS ORDERED: Potassium Replacement Protocol 1 EACH MISC MISCELLANE PRN (23:02)
[2020-02-23 23:21] LABS: Appearance,Urine Clear (Clear); Bilirubin,Urine Negative (Negative); Blood,Urine Negative (Negative); Color,Urine Yellow; Glucose,Urine (UA) Negative (Negative); Ketones,Urine Negative (Negative); Leukocyte Esterase,Urine Negative (Negative); Nitrite,Urine Negative (Negative); PH, Urine 6.5 (5.0-8.0); Protein,Urine Trace (Negative)
[2020-02-23] MEDS: NICOTINE 21MG/24HR PATCH TRANSDERM SCH (23:21)
[2020-02-23] MEDS: LIDOCAINE 5% PATCH TOPICAL SCH (23:21)
[2020-02-23] MEDS: MELATONIN 3 MG TABLET PO PRN (23:21)
[2020-02-24] MEDS: POTASSIUM CHLORIDE 10 MEQ in WATER FOR INJECTION 1 100ML.BAG IVPB SCH ×2 (00:01→01:06)
[2020-02-24] MEDS: HYDROcodone/APAP 5-325MG 1 EACH TAB PO PRN ×3 (01:37→20:02)
[2020-02-24] MEDS: IPRATROPIUM-ALBUTEROL 3 ML NEB INHALATION PRN ×2 (02:56→23:39)
[2020-02-24] MEDS ORDERED: METHYL SALICYLATE/MENTHOL CREAM 5 OZ TOPICAL PRN (03:02)
[2020-02-24 06:09] LABS: Glucose,Whole Blood 233 mg/dL (75-99)
[2020-02-24] MEDS: INSULIN ASPART (NovoLOG) 100 UNIT/ML VIAL SQ SCH ×4 (06:20→21:41)
[2020-02-24] MEDS: methylPREDNISolone SOD SUCCI 125 MG/2 ML VIAL IV SCH ×4 (06:20→23:22)
[2020-02-24] MEDS: IPRATROPIUM-ALBUTEROL 3 ML NEB INHALATION SCH ×4 (07:16→19:35)
[2020-02-24 07:20] LABS: Basophils % (A) 0 %; Eosinophils % (A) 0 %; HCT 28.4 % (39.0-53.0); HGB 9.1 gm/dL (13.0-17.5); Hypochromasia Moderate; Lymphocytes # (A) 0.4 k/uL (1.0-4.8); Lymphocytes % (A) 6 %; MCH 29.5 pg (25.0-35.0); MCHC 31.9 g/dL (31.0-37.0); MCV 92.5 fL (80.0-100.0); Mean Platelet Volume 8.6; Monocytes # (A) 0.1 k/uL (0-1.0); Monocytes % (A) 2 %; Neutrophils # (A) 5.7 k/uL (1.3-7.7); Neutrophils % (A) 92 %; Platelet Count 190 k/uL (150-450); Poikilocytosis Slight; RBC 3.07 m/uL (4.30-5.90); WBC 6.3 k/uL (3.8-10.6)
[2020-02-24 07:21] LABS: Albumin 3.8 g/dL (3.5-5.0); Calcium 8.1 mg/dL (8.4-10.2); Magnesium 1.8 mg/dL (1.6-2.3); Phosphorus 4.3 mg/dL (2.5-4.5); Potassium 2.8 mmol/L (3.5-5.1); Total Bilirubin 2.7 mg/dL (0.2-1.3)
[2020-02-24] MEDS ORDERED: Potassium Replacement Protocol 1 EACH MISC MISCELLANE PRN (07:37)
[2020-02-24] MEDS: NICOTINE 21MG/24HR PATCH TRANSDERM SCH (08:01)
[2020-02-24] MEDS: POTASSIUM CHLORIDE ER 20 MEQ TAB.ER PO SCH ×6 (08:01→20:02)
[2020-02-24] MEDS: LIDOCAINE 5% PATCH TOPICAL SCH (08:02)
[2020-02-24] MEDS ORDERED: ASPIRIN 325 MG TAB PO SCH (09:00)
[2020-02-24] MEDS ORDERED: SPIRONOLACTONE 25 MG TAB PO SCH (10:45)
[2020-02-24 12:27] LABS: Glucose,Whole Blood 225 mg/dL (75-99)
--- NOTE | 2020-02-24 13:15 | P.CNPUL ---
History of Present Illness Consult date: 02/24/20 Requesting physician: Arlene Carter Reason for consult: dyspnea, COPD Chief complaint: Dizziness, lightheadedness, shortness of breath History of present illness: his is a very pleasant 64-year-old male patient who follows with Dr. Merritt as his primary care provider and has a known history of obesity, COPD Oxygen dependent on 2-2-1/2 L, obstructive sleep apnea with an AHI of 24 currently on CPAP, morbid obesity, chronic and ongoing tobacco dependence, congestion heart failure with an ejection fraction of 20% and the patient has an AICD in place. Anticoagulated with Eliquis. In addition, the patient has history of coronary artery disease with previous bypass surgery and history of diabetes mellitus, hypertension and hyperlipidemia. The patient has had multiple hospitalization for exacerbation of COPD and CHF. He was discharged last on 01/25/2020. He presented to the emergency room yesterday with complaints of dizziness, lightheadedness and shortness of breath. Chest x-ray revealed no acute cardiopulmonary process. He was found to be hyponatremic with a sodium of 127 and hypokalemic with a potassium of 2.1. Chloride 72. Bicarb 38. Creatinine 1.58. ProBNP 9010. Troponin 0.081, 0.088, 0.091. He is seen today in consultation on the selective care unit. He is currently sitting up at the bedside. Awake and alert in no acute distress. Still somewhat weak and fatigue d. He is dyspneic on exertion. Maintaining O2 saturations up to 100% on 3 L/m per nasal cannula. She's afebrile. Hemodynamically stable. He's been initiated on IV Solu-Medrol, DuoNeb inhalations, Symbicort. NicoDerm patch in place. Anticoagulated with Eliquis. Review of Systems REVIEW OF SYSTEMS: CONSTITUTIONAL: Generalized weakness, fatigue Denies any recent significant weight loss or weight gain. EYES: Denies change in vision. EARS, NOSE, MOUTH, THROAT: Denies headaches, denies sore throat. CARDIOVASCULAR: Denies chest pain, palpitations or syncopal episodes. RESPIRATORY: Positive for shortness of breath, cough, congestion no hemoptysis. GASTROINTESTINAL: Denies change in appetite, denies abdominal pain GENITOURINARY: Denies hematuria, denies infections. MUSKULOSKELETAL: Denies pain, denies swelling. INTEGUMENTARY: Denies rash, denies eczema. NEUROLOGICAL: Denies recent memory loss, no recent seizure activity. PSYCHIATRIC: Denies anxiety, denies depression. HEMATOLOGIC/LYMPHATIC: Denies anemia, denies enlarged lymph nodes. Past Medical History Past Medical History: Coronary Artery Disease (CAD), Chest Pain / Angina, Heart Failure, COPD, Diabetes Mellitus, Hyperlipidemia, Myocardial Infarction ([place]), Osteoarthritis (OA) Additional Past Medical History / Comment(s): Coronary artery disease with a previous bypass surgery, ischemic cardiomyopathy with ejection fraction of less than 20%,HOME 02 2-2.5 LITERS AT HS, COPD, obstructive sleep apnea with an AHI of 24 currently on auto CPAP unit, obesity, hypertension, AICD placement for ischemic cardiomyopathy, Cardiomyopathy, osteoarthritis, diabetes mellitus, hyperlipidemia, hypertension.past fx rt leg.tinnitus Last Myocardial Infarction Date:: UNSURE History of Any Multi-Drug Resistant Organisms: None Reported Past Surgical History: AICD, Coronary Bypass/CABG, Heart Catheterization, Orthopedic Surgery Additional Past Surgical History / Comment(s): Pacemaker and AICD- 10/2013. changed pacer 2019, CABG 1 vessel many yrs ago per pt, BILATERAL SHOULDER SURGERY , steel alcides in rt leg d/t fracture, bilat shoulders Past Anesthesia/Blood Transfusion Reactions: No Reported Reaction Type of Cardiac Device: Permanent Pacemaker, AICD Device Placement Date:: Past Psychological History: No Psychological Hx Reported Additional Psychological History / Comment(s): Pt resides with his spouse. He has a walker/cane/o2 2-2.5 liters n/c/nebulizer. he drives. Smoking Status: Current some day smoker Past Alcohol Use History: Daily Additional Past Alcohol Use History / Comment(s): Smokes half pack a day. Does drink 2 White Claws every day. Past Drug Use History: None Reported - Past Family History Mother History Unknown: Yes Father Family Medical History: Myocardial Infarction ([place]) Additional Family Medical History / Comment(s): Father of a PA at the age of 56yrs. Brother(s) Family Medical History: Cancer Medications and Allergies Home Medications Medication Instructions Recorded Confirmed Type Albuterol Nebulized [Ventolin 2.5 mg INHALATION RT-QID PRN 10/19/18 02/23/20 History Nebulized] Apixaban [Eliquis] 5 mg PO BID 10/19/18 02/23/20 History Aspirin EC [Ecotrin Low Dose] 81 mg PO DAILY #90 tablet. 10/28/18 02/23/20 Rx Atorvastatin [Lipitor] 40 mg PO HS 11/01/18 02/23/20 History Albuterol Inhaler [Ventolin Hfa 1 puff INHALATION RT-QID 01/22/20 02/23/20 History Inhaler] Fluticasone/Salmeterol [Advair 1 puff INHALATION RT-BID 01/22/20 02/23/20 History 250-50 Diskus] Budesonide-Formot 160-4.5 Mcg 2 puff INHALATION RT-BID #1 inh 01/25/20 02/23/20 Rx [Symbicort 160-4.5 Mcg Inhaler] Metoprolol Succinate (ER) [Toprol 25 mg PO DAILY #30 tab.er.24h 01/25/20 02/23/20 Rx XL] Midodrine [ProAmatine] 5 mg PO AC-BID #20 tab 01/25/20 02/23/20 Rx Docusate [Colace] 200 mg PO HS PRN 02/23/20 02/23/20 History Furosemide [Lasix] 20 mg PO BID 02/23/20 02/23/20 History Insulin Glargine [Lantus] 5 - 10 units SQ DAILY 02/23/20 02/24/20 History Unknown Suppository 1 dose RECTAL ONCE PRN 02/23/20 02/23/20 History metOLazone [Zaroxolyn] 5 mg PO DAILY 02/23/20 02/23/20 History Allergies Allergy/AdvReac Type Severity Reaction Status Date / Time Latex, Natural Rubber Allergy Rash/Hives Verified 02/23/20 22:02 levofloxacin [From Levaquin] Allergy Rash/Hives Verified 02/23/20 22:02 mold Allergy Rash/Hives Verified 02/23/20 22:02 prednisone Allergy Rash/Hives Verified 02/23/20 22:02 STEROIDS AdvReac Rash/Hives Uncoded 02/23/20 22:02 Physical Exam Vitals: Vital Signs Temp Pulse Pulse Resp BP BP Pulse Ox 02/24/20 11:51 72 02/24/20 11:38 72 02/24/20 08:00 97.7 F 70 20 114/79 100 02/24/20 07:27 72 02/24/20 07:16 70 100 02/24/20 03:35 70 20 116/66 100 02/24/20 03:11 76 02/24/20 02:56 72 02/24/20 00:00 98 F 70 22 122/68 100 02/23/20 21:12 70 18 143/84 100 02/23/20 20:19 98 F 70 18 136/60 99 02/23/20 19:55 20 02/23/20 19:52 73 02/23/20 19:40 70 02/23/20 19:20 98.3 F 68 18 134/68 98 Intake and Output 02/23/20 02/24/20 02/24/20 22:59 06:59 14:59 Output Total 225 Balance -225 Output: Urine 225 Other: Voiding Method Urinal Urinal # Voids 1 Weight 104.326 kg 109.2 kg GENERAL EXAM: Alert, pleasant 64-year-old gentleman, on 3 L nasal cannula, comfortable in no apparent distress. HEAD: Normocephalic. EYES: Normal reaction of pupils, equal size. NOSE: Clear with pink turbinates. THROAT: No erythema or exudates. NECK: No masses, no JVD. CHEST: No chest wall deformity. LUNGS: Equal air entry with no crackles, wheeze, rhonchi or dullness. Diminished. CVS: S1 and S2 normal with no audible murmur, regular rhythm. ABDOMEN: No hepatosplenomegaly, normal bowel sounds, no guarding or rigidity. SPINE: No scoliosis or deformity SKIN: No rashes CENTRAL NERVOUS SYSTEM: No focal deficits, tone is normal in all 4 extremities. EXTREMITIES: There is no peripheral edema. No clubbing, no cyanosis. Peripheral pulses are intact. Results - Laboratory Findings CBC and BMP: 02/24/20 05:42 02/24/20 05:42 PT/INR, D-dimer PT 12.0 sec (9.0-12.0) 02/23/20 19:51 INR 1.2 (<1.2) H 02/23/20 19:51 Abnormal lab findings: Abnormal Labs 02/23/20 02/23/20 02/23/20 19:51 19:51 19:51 RBC 3.16 L Hgb 9.4 L D Hct 28.8 L RDW 16.2 H Lymphocytes # 0.8 L INR 1.2 H Sodium 127 L Potassium 2.1 L* Chloride 72 L* Carbon Dioxide 38 H BUN 32 H Creatinine 1.58 H Glucose 224 H POC Glucose (mg/dL) Plasma Lactic Acid Meng Calcium Total Bilirubin 2.9 H Creatine Kinase 190 H Troponin I Total Protein 6.1 L Urine Protein 02/23/20 02/23/20 02/23/20 19:51 19:51 19:51 RBC Hgb Hct RDW Lymphocytes # INR Sodium Potassium Chloride Carbon Dioxide BUN Creatinine Glucose POC Glucose (mg/dL) Plasma Lactic Acid Meng 5.1 H* Calcium Total Bilirubin Creatine Kinase 187 H Troponin I 0.081 H* Total Protein Urine Protein 02/23/20 02/23/20 02/23/20 21:06 22:17 22:36 RBC Hgb Hct RDW Lymphocytes # INR Sodium Potassium Chloride Carbon Dioxide BUN Creatinine Glucose POC Glucose (mg/dL) 142 H Plasma Lactic Acid Meng Calcium Total Bilirubin Creatine Kinase Troponin I 0.088 H* Total Protein Urine Protein Trace H 02/23/20 02/23/20 02/24/20 22:43 22:43 05:42 RBC 3.07 L Hgb 9.1 L Hct 28.4 L RDW 16.0 H Lymphocytes # 0.4 L INR Sodium Potassium Chloride Carbon Dioxide BUN Creatinine Glucose POC Glucose (mg/dL) Plasma Lactic Acid Meng 3.7 H* Calcium Total Bilirubin Creatine Kinase Troponin I 0.091 H* Total Protein Urine Protein 02/24/20 02/24/20 02/24/20 05:42 06:07 12:26 RBC Hgb Hct RDW Lymphocytes # INR Sodium 127 L Potassium 2.8 L Chloride 77 L Carbon Dioxide 40 H BUN 36 H Creatinine 1.73 H Glucose 201 H POC Glucose (mg/dL) 233 H 225 H Plasma Lactic Acid Meng Calcium 8.1 L Total Bilirubin 2.7 H Creatine Kinase Troponin I Total Protein 6.0 L Urine Protein - Diagnostic Findings Chest x-ray: image reviewed Assessment and Plan Assessment: 1 Dizziness with generalized fatigue and weakness secondary to hyponatremia and hypokalemia with presenting sodium of 127 and presenting potassium of 2.1 secondary to diuretics in the form of Lasix and Zaroxolyn in the outpatient setting 2 Acute on chronic hypoxic respiratory failure secondary to an acute exacerbation of chronic obstructive pulmonary disease, on home oxygen 3 Acute kidney injury secondary to excess diuretics 4 Known history of ischemic cardiomyopathy status post AICD, ejection fraction of less than 20% 5 Coronary artery disease with previous bypass surgery 6 Chronic and ongoing tobacco dependence 7 Hypertension 8 Hyperlipidemia 9 Diabetes mellitus 10 Chronic renal failure with stage III kidney disease 11 Obesity with a BMI of 32.7 12 Obstructive sleep apnea with an AHI of 24 currently on a CPAP treatment 13 Diabetic peripheral neuropathy 14 Osteoarthritis 15 Daily alcohol use Plan: The patient was seen and evaluated by Dr. Tompkins Chest x-ray and labs reviewed Replace electrolytes Continue Symbicort, DuoNeb's, IV Solu-Medrol Again educated regarding the importance of complete smoking cessation NicoDerm patch in place Anticoagulated with Eliquis Titrate down the FiO2 as tolerated Increase his activity as tolerated We will continue to follow and make further recommendations based on his clinical status I, the cosigning physician, performed a history & physical examination of the patient. Lungs sounds are clear, diminished. Maintaining good O2 saturations in the 90s on 3 L/m per nasal cannula. I discussed the assessment and plan of care with my nurse practitioner, Narcisa Graham. I attest to the above note as dictated by her. Time with Patient: Greater than 30
--- NOTE | 2020-02-24 14:10 | P.CRDCN ---
History of Present Illness History of present illness: This is Anca Muniz PA-C dictating a consult on this patient The patient was interviewed and examined by me as well as by Dr. Carroll Case discussed with Dr. Carroll and he agrees with the plan of care HPI Patient is a 64-year-old male with a history of ischemic cardiomyopathy status post ICD, congestive heart failure, CAD status post CABG, COPD, atrial tachycardia, diabetes, hypertension, sleep apnea, nicotine dependence and alcohol use who presented with complaints of shortness of breath and dizziness. Patient follows with tomorrow in the office. He states that he has been more short of breath for the last week. It is worse on exertion. No chest pain or chest pressure. He has also been feeling very dizzy, lightheaded and weak. No syncope. Taking higher doses of diuretics without any relief. He presented to the emergency department for evaluation. Upon arrival to the emergency department patient was afebrile, pulse in the 60s, respirations 18, blood p ressure 134/68, oxygen saturation 98% on 3 L nasal cannula. EKG showed ventricular paced rhythm. Chest x-ray showed no acute process. Labs are significant for hypokalemia, and hyponatremia, sodium 127, potassium 2.1, BUN 32, creatinine 1.58. Troponins abnormal. Patient seen and examined sitting up in bed. States his breathing has improved slightly. Continues to feel weak. Denies any chest pain or chest pressure. ROS: No fevers, chills or rigors, no cough, phlegm or expectoration, no nausea, vomiting or diarrhea, no hematuria, dysuria, no musculoskeletal complaints, no strokes or seizures, no skin lesions. EXAMINATION: Patient is afebrile, pulse in the 70s, respirations 20, blood pressure 107/63, oxygen saturation 100% on 3 L nasal cannula Patient seen and examined sitting up at the side of the bed, in no acute distress Lungs are diminished bilaterally Heart is regular, no audible murmurs No elevated JVD Trace lower extremity edema REVIEW OF LABS, ECG & MEDICAL DATA WBC 6.3, hemoglobin 9.1, platelets 190, sodium 127, potassium 2.8, BUN 36, creatinine 1.73 LDL 30 IMPRESSION / ASSESSMENT: #1 symptoms of dizziness, fatigue and weakness secondary to hypokalemia and h yponatremia likely secondary to overdiuresis #2 symptoms of increased shortness of breath secondary to COPD exacerbation #3 chronic systolic congestive heart failure, stable #4 known ischemic cardiomyopathy status post ICD #5 CAD status post CABG #6 history of atrial tachycardia #7 diabetes #8 hypertension #9 sleep apnea #10 nicotine dependence #11 alcohol use #12 acute kidney injury #13 abnormal troponins in the setting of acute kidney injury PLAN: Stop Midodrine Reduce Lasix to 40 mg by mouth daily, no indication for IV Lasix at this time Add spironolactone 25 mg Monitor blood pressure, BMP, daily weights I's and O's Treatment of COPD exacerbation per primary care team Past Medical History Past Medical History: Coronary Artery Disease (CAD), Chest Pain / Angina, Heart Failure, COPD, Diabetes Mellitus, Hyperlipidemia, Myocardial Infarction ([place]), Osteoarthritis (OA) Additional Past Medical History / Comment(s): Coronary artery disease with a previous bypass surgery, ischemic cardiomyopathy with ejection fraction of less than 20%,HOME 02 2-2.5 LITERS AT HS, COPD, obstructive sleep apnea with an AHI of 24 currently on auto CPAP unit, obesity, hypertension, AICD placement for ischemic cardiomyopathy, Cardiomyopathy, osteoarthritis, diabetes mellitus, hyperlipidemia, hypertension.past fx rt leg.tinnitus Last Myocardial Infarction Date:: UNSURE History of Any Multi-Drug Resistant Organisms: None Reported Past Surgical History: AICD, Coronary Bypass/CABG, Heart Catheterization, Orthopedic Surgery Additional Past Surgical History / Comment(s): Pacemaker and AICD- 10/2013. changed pacer 2018, CABG 1 vessel many yrs ago per pt, BILATERAL SHOULDER SURGERY , steel alcides in rt leg d/t fracture, bilat shoulders Past Anesthesia/Blood Transfusion Reactions: No Reported Reaction Type of Cardiac Device: Permanent Pacemaker, AICD Device Placement Date:: Past Psychological History: No Psychological Hx Reported Additional Psychological History / Comment(s): Pt resides with his spouse. He has a walker/cane/o2 2-2.5 liters n/c/nebulizer. he drives. Smoking Status: Current some day smoker Past Alcohol Use History: Daily Additional Past Alcohol Use History / Comment(s): Smokes half pack a day. Does drink 2 [place] Claws every day. Past Drug Use History: None Reported - Past Family History Mother History Unknown: Yes Father Family Medical History: Myocardial Infarction ([place]) Additional Family Medical History / Comment(s): Father of a [place] at the age of 56yrs. Brother(s) Family Medical History: Cancer Medications and Allergies Home Medications Medication Instructions Recorded Confirmed Type Albuterol Nebulized [Ventolin 2.5 mg INHALATION RT-QID PRN 10/19/18 02/23/20 History Nebulized] Apixaban [Eliquis] 5 mg PO BID 10/19/18 02/23/20 History Aspirin EC [Ecotrin Low Dose] 81 mg PO DAILY #90 tablet. 10/28/18 02/23/20 Rx Atorvastatin [Lipitor] 40 mg PO HS 11/01/18 02/23/20 History Albuterol Inhaler [Ventolin Hfa 1 puff INHALATION RT-QID 01/22/20 02/23/20 History Inhaler] Fluticasone/Salmeterol [Advair 1 puff INHALATION RT-BID 01/22/20 02/23/20 History 250-50 Diskus] Budesonide-Formot 160-4.5 Mcg 2 puff INHALATION RT-BID #1 inh 01/25/20 02/23/20 Rx [Symbicort 160-4.5 Mcg Inhaler] Metoprolol Succinate (ER) [Toprol 25 mg PO DAILY #30 tab.er.24h 01/25/20 02/23/20 Rx XL] Midodrine [ProAmatine] 5 mg PO AC-BID #20 tab 01/25/20 02/23/20 Rx Docusate [Colace] 200 mg PO HS PRN 02/23/20 02/23/20 History Furosemide [Lasix] 20 mg PO BID 02/23/20 02/23/20 History Insulin Glargine [Lantus] 5 - 10 units SQ DAILY 02/23/20 02/24/20 History Unknown Suppository 1 dose RECTAL ONCE PRN 02/23/20 02/23/20 History metOLazone [Zaroxolyn] 5 mg PO DAILY 02/23/20 02/23/20 History Allergies Allergy/AdvReac Type Severity Reaction Status Date / Time Latex, Natural Rubber Allergy Rash/Hives Verified 02/23/20 22:02 levofloxacin [From Levaquin] Allergy Rash/Hives Verified 02/23/20 22:02 mold Allergy Rash/Hives Verified 02/23/20 22:02 prednisone Allergy Rash/Hives Verified 02/23/20 22:02 STEROIDS AdvReac Rash/Hives Uncoded 02/23/20 22:02 Physical Exam Vitals: Vital Signs Temp Pulse Pulse Resp BP BP Pulse Ox 02/24/20 12:57 98 F 70 20 107/63 100 02/24/20 11:51 72 02/24/20 11:38 72 02/24/20 08:00 97.7 F 70 20 114/79 100 02/24/20 07:27 72 02/24/20 07:16 70 100 02/24/20 03:35 70 20 116/66 100 02/24/20 03:11 76 02/24/20 02:56 72 02/24/20 00:00 98 F 70 22 122/68 100 02/23/20 21:12 70 18 143/84 100 02/23/20 20:19 98 F 70 18 136/60 99 02/23/20 19:55 20 02/23/20 19:52 73 02/23/20 19:40 70 02/23/20 19:20 98.3 F 68 18 134/68 98 Intake and Output 02/23/20 02/24/20 02/24/20 22:59 06:59 14:59 Output Total 225 Balance -225 Output: Urine 225 Other: Voiding Method Urinal Urinal # Voids 1 Weight 104.326 kg 109.2 kg Results 02/24/20 05:42 02/24/20 05:42 Cardiac Enzymes 02/23/20 02/23/20 02/23/20 Range/Units 19:51 19:51 21:06 AST 37 (17-59) U/L Troponin I 0.081 H* 0.088 H* (0.000-0.034) ng/mL 02/23/20 02/24/20 Range/Units 22:43 05:42 AST 34 (17-59) U/L Troponin I 0.091 H* (0.000-0.034) ng/mL Coagulation 02/23/20 Range/Units 19:51 PT 12.0 (9.0-12.0) sec APTT 24.2 (22.0-30.0) sec Lipids 02/24/20 Range/Units 05:42 Triglycerides 48 (<150) mg/dL Cholesterol 87 (<200) mg/dL HDL Cholesterol 47 (40-60) mg/dL CBC 02/23/20 02/24/20 Range/Units 19:51 05:42 WBC 9.2 6.3 (3.8-10.6) k/uL RBC 3.16 L 3.07 L (4.30-5.90) m/uL Hgb 9.4 L D 9.1 L (13.0-17.5) gm/dL Hct 28.8 L 28.4 L (39.0-53.0) % Plt Count 210 190 (150-450) k/uL Comprehensive Metabolic Panel 02/23/20 02/24/20 Range/Units 19:51 05:42 Sodium 127 L 127 L (137-145) mmol/L Potassium 2.1 L* 2.8 L (3.5-5.1) mmol/L Chloride 72 L* 77 L (98-107) mmol/L Carbon Dioxide 38 H 40 H (22-30) mmol/L BUN 32 H 36 H (9-20) mg/dL Creatinine 1.58 H 1.73 H (0.66-1.25) mg/dL Glucose 224 H 201 H (74-99) mg/dL Calcium 8.6 8.1 L (8.4-10.2) mg/dL AST 37 34 (17-59) U/L ALT 24 24 (4-49) U/L Alkaline Phosphatase 87 105 (38-126) U/L Total Protein 6.1 L 6.0 L (6.3-8.2) g/dL Albumin 3.9 3.8 (3.5-5.0) g/dL Current Medications Generic Name Dose Route Start Last Admin Trade Name Freq PRN Reason Stop Dose Admin Hydrocodone Bitart/Acetaminophen 1 each 02/23/20 22:31 02/24/20 12:42 [place] 5-325 PO 1 each Q6HR PRN Administration Pain Albuterol/Ipratropium 3 ml 02/24/20 08:00 02/24/20 11:38 Duoneb 0.5 Mg-3 Mg/3 Ml Soln INHALATION 3 ml RT-QID BRO Administration Albuterol/Ipratropium 3 ml 02/23/20 20:19 02/24/20 02:56 Duoneb 0.5 Mg-3 Mg/3 Ml Soln INHALATION 3 ml RT-Q4H PRN Administration Shortness Of Breath Or Wheezing Apixaban 5 mg 02/24/20 21:00 Eliquis PO BID [facility] Aspirin 81 mg 02/25/20 09:00 Aspirin PO DAILY [facility] Atorvastatin Calcium 40 mg 02/24/20 21:00 Lipitor PO HS [facility] Budesonide/Formoterol Fumarate 2 puff 02/24/20 20:00 Symbicort 160-4.5 Mcg Inhaler INHALATION RT-BID [facility] Docusate Sodium 200 mg 02/24/20 11:49 Colace PO HS PRN Constipation Insulin Aspart 0 unit 02/24/20 07:30 02/24/20 12:38 Novolog SQ 4 unit ACHS [facility] Administration Protocol Lidocaine 1 patch 02/23/20 23:00 02/24/20 08:02 Lidoderm TOPICAL 1 patch DAILY BRO Administration Melatonin 6 mg 02/23/20 22:31 02/23/20 23:21 Melatonin PO 6 mg HS PRN Administration Insomnia Methyl Salicylate 1 applic 02/24/20 03:02 02/24/20 03:29 Thera-Gesic Cream TOPICAL 1 applic Q6HR PRN Administration Mild Pain Methylprednisolone Sodium Succinate 60 mg 02/24/20 00:00 02/24/20 12:37 Solu-Medrol IV 60 mg Q6HR BRO Administration Metoprolol Succinate 25 mg 02/25/20 09:00 Toprol Xl PO DAILY [facility] Miscellaneous Information 1 each 02/23/20 23:02 Potassium Per Protocol MISCELLANE DAILY PRN Per Protocol Protocol Miscellaneous Information 1 each 02/24/20 07:37 Potassium Per Protocol MISCELLANE DAILY PRN Per Protocol Protocol Naloxone HCl 0.2 mg 02/23/20 20:41 Narcan IV Q2M PRN Opioid Reversal Nicotine 1 patch 02/23/20 22:45 02/24/20 08:01 Habitrol 21mg/24hr Patch TRANSDERM 1 patch DAILY [facility] Administration Nitroglycerin 0.4 mg 02/23/20 20:49 Nitrostat SUBLINGUAL Q5M PRN Chest Pain Potassium Chloride 20 meq 02/23/20 22:00 02/24/20 08:01 K-Dur 20 PO 20 meq TID BRO Administration Intake and Output 02/23/20 02/24/20 02/24/20 22:59 06:59 14:59 Output Total 225 Balance -225 Output: Urine 225 Other: Voiding Method Urinal Urinal # Voids 1 Weight 104.326 kg 109.2 kg 02/24/20 05:42 02/24/20 05:42
[2020-02-24 17:45] LABS: Glucose,Whole Blood 249 mg/dL (75-99)
[2020-02-24] MEDS: SYMBICORT 160-4.5 MCG INHALER INHALATION SCH (19:50)
[2020-02-24] MEDS: APIXABAN 5 MG TAB PO SCH (20:02)
[2020-02-24] MEDS: ATORVASTATIN 40 MG TAB PO SCH (20:02)
[2020-02-24] MEDS: DOCUSATE 100 MG CAP PO PRN (20:04)
[2020-02-24 20:07] LABS: Glucose,Whole Blood 259 mg/dL (75-99)
[2020-02-24] MEDS: MELATONIN 3 MG TABLET PO PRN (21:41)
--- NOTE | 2020-02-24 21:45 | P.HPIM ---
History of Present Illness H&P Date: 02/24/20 Chief Complaint: Dizziness Patient is a 64-year-old male with a known history of COPD on oxygen, coronary artery disease with history of CABG and cardiomyopathy with ejection fraction 20% status post ICD placement, obstructive sleep apnea on CPAP at home, hypertension, diabetes type 2, history of DC, osteoarthritis, daily alcohol use and ongoing nicotine addiction came to ER with complaints of dizziness and lightheadedness and has been fatigued with generalized weakness. Patient has been having shortness of breath as well getting worse for the past 3 to 4 days. Occasional cough. Whitish sputum production. No complaints of fever or chills. No worsening leg swelling. No nausea vomiting or abdominal pain or diarrhea. Lab data showed WBC 9.2, hemoglobin 9.4 and platelets 210 INR 1.2 Sodium 127, potassium 2.19 chloride 72, BUN 32 and creatinine 1.58 blood sugar is 228 Lactic acid 5.1 on admission Troponin 0 0.081, 0.088, 0.091 proBNP 9010 Urine negative for infection Chest x-ray showed no acute cardiopulmonary disease. No change. EKG showed ventricular paced rhythm Abdominal x-ray showed no acute abdomen. Review of Systems Constitutional: Patient denies any fever or chills . generalized weakness and fatique. no weight loss. Abdomen: Patient denied nausea vomiting and diarrhea and abdominal pain. Cardiovascular: Patient denies any chest pain or short of breath no palpitations. Respiratory: patient denied any cough is from production. + shortness of breath Neurologic: Patient denied any numbness or tingling headache. Musculoskeletal: Patient denies any complaints of joint swelling or deformity. Skin: Negative Psychiatric: Negative Endocrine: No heat or cold intolerance. No recent weight gain. Genitourinary: No dysuria or hematuria. All other 14 point ROS negative except the above Past Medical History Past Medical History: Coronary Artery Disease (CAD), Chest Pain / Angina, Heart Failure, COPD, Diabetes Mellitus, Hyperlipidemia, Myocardial Infarction (DC), Osteoarthritis (OA) Additional Past Medical History / Comment(s): Coronary artery disease with a previous bypass surgery, ischemic cardiomyopathy with ejection fraction of less than 20%,HOME 02 2-2.5 LITERS AT HS, COPD, obstructive sleep apnea with an AHI of 24 currently on auto CPAP unit, obesity, hypertension, AICD placement for ischemic cardiomyopathy, Cardiomyopathy, osteoarthritis, diabetes mellitus, hyperlipidemia, hypertension.past fx rt leg.tinnitus Last Myocardial Infarction Date:: UNSURE History of Any Multi-Drug Resistant Organisms: None Reported Past Surgical History: AICD, Coronary Bypass/CABG, Heart Catheterization, Orthopedic Surgery Additional Past Surgical History / Comment(s): Pacemaker and AICD- 10/2013. changed pacer 2019, CABG 1 vessel many yrs ago per pt, BILATERAL SHOULDER SURGERY , steel alcides in rt leg d/t fracture, bilat shoulders Past Anesthesia/Blood Transfusion Reactions: No Reported Reaction Type of Cardiac Device: Permanent Pacemaker, AICD Device Placement Date:: Past Psychological History: No Psychological Hx Reported Additional Psychological History / Comment(s): Pt resides with his spouse. He has a walker/cane/o2 2-2.5 liters n/c/nebulizer. he drives. Smoking Status: Current some day smoker Past Alcohol Use History: Daily Additional Past Alcohol Use History / Comment(s): Smokes half pack a day. Does drink 2 [place] every day. Past Drug Use History: None Reported - Past Family History Mother History Unknown: Yes Father Family Medical History: Myocardial Infarction (DC) Additional Family Medical History / Comment(s): Father of a DC at the age of 56yrs. Brother(s) Family Medical History: Cancer Medications and Allergies Home Medications Medication Instructions Recorded Confirmed Type Albuterol Nebulized [Ventolin 2.5 mg INHALATION RT-QID PRN 10/19/18 02/23/20 History Nebulized] Apixaban [Eliquis] 5 mg PO BID 10/19/18 02/23/20 History Aspirin EC [Ecotrin Low Dose] 81 mg PO DAILY #90 tablet. 10/28/18 02/23/20 Rx Atorvastatin [Lipitor] 40 mg PO HS 11/01/18 02/23/20 History Albuterol Inhaler [Ventolin Hfa 1 puff INHALATION RT-QID 01/22/20 02/23/20 History Inhaler] Fluticasone/Salmeterol [Advair 1 puff INHALATION RT-BID 01/22/20 02/23/20 History 250-50 Diskus] Budesonide-Formot 160-4.5 Mcg 2 puff INHALATION RT-BID #1 inh 01/25/20 02/23/20 Rx [Symbicort 160-4.5 Mcg Inhaler] Metoprolol Succinate (ER) [Toprol 25 mg PO DAILY #30 tab.er.24h 01/25/20 02/23/20 Rx XL] Midodrine [ProAmatine] 5 mg PO AC-BID #20 tab 01/25/20 02/23/20 Rx Docusate [Colace] 200 mg PO HS PRN 02/23/20 02/23/20 History Furosemide [Lasix] 20 mg PO BID 02/23/20 02/23/20 History Insulin Glargine [Lantus] 5 - 10 units SQ DAILY 02/23/20 02/24/20 History Unknown Suppository 1 dose RECTAL ONCE PRN 02/23/20 02/23/20 History metOLazone [Zaroxolyn] 5 mg PO DAILY 02/23/20 02/23/20 History Allergies Allergy/AdvReac Type Severity Reaction Status Date / Time Latex, Natural Rubber Allergy Rash/Hives Verified 02/23/20 22:02 levofloxacin [From Levaquin] Allergy Rash/Hives Verified 02/23/20 22:02 mold Allergy Rash/Hives Verified 02/23/20 22:02 prednisone Allergy Rash/Hives Verified 02/23/20 22:02 STEROIDS AdvReac Rash/Hives Uncoded 02/23/20 22:02 Physical Exam Vitals: Vital Signs Temp Pulse Pulse Resp BP BP Pulse Ox 02/24/20 11:38 72 02/24/20 08:00 97.7 F 70 20 114/79 100 02/24/20 07:27 72 02/24/20 07:16 70 100 02/24/20 03:35 70 20 116/66 100 02/24/20 03:11 76 02/24/20 02:56 72 02/24/20 00:00 98 F 70 22 122/68 100 02/23/20 21:12 70 18 143/84 100 02/23/20 20:19 98 F 70 18 136/60 99 02/23/20 19:55 20 02/23/20 19:52 73 02/23/20 19:40 70 02/23/20 19:20 98.3 F 68 18 134/68 98 Intake and Output 02/23/20 02/24/20 02/24/20 22:59 06:59 14:59 Output Total 225 Balance -225 Output: Urine 225 Other: Voiding Method Urinal Urinal # Voids 1 Weight 104.326 kg 109.2 kg PHYSICAL EXAMINATION: Patient is lying in the bed comfortably, no acute distress, awake alert and oriented.. HEENT: Normocephalic. Neck is supple. Pupils reactive. Nostrils clear. Oral cavity is moist. Ears reveal no drainage. Neck reveals no JVD, carotid bruits, or thyromegaly. CHEST EXAMINATION: Trachea is central. Symmetrical expansion. Bilateral diminished air entry and expiratory wheezing.. CARDIAC: Normal S1, S2 with no gallops. No murmurs ABDOMEN: Soft. Bowel sounds normal. No organomegaly. No abdominal bruits. Extremities: 1+ edema. No clubbing or cyanosis Neurologically awake, alert, oriented x3 with well-coordinated movements. No focal deficits noted Skin: No rash or skin lesions. Psychiatric: Coperative. Nonsuicidal Musculoskeletal: No joint swelling or deformity. Normal range of motion. Results CBC & Chem 7: 02/24/20 05:42 02/24/20 15:49 Labs: Abnormal Lab Results - Last 24 Hours (Table) 02/23/20 02/23/20 02/23/20 Range/Units 19:51 19:51 19:51 RBC 3.16 L (4.30-5.90) m/uL Hgb 9.4 L D (13.0-17.5) gm/dL Hct 28.8 L (39.0-53.0) % RDW 16.2 H (11.5-15.5) % Lymphocytes # 0.8 L (1.0-4.8) k/uL INR 1.2 H (<1.2) Sodium 127 L (137-145) mmol/L Potassium 2.1 L* (3.5-5.1) mmol/L Chloride 72 L* (98-107) mmol/L Carbon Dioxide 38 H (22-30) mmol/L BUN 32 H (9-20) mg/dL Creatinine 1.58 H (0.66-1.25) mg/dL Glucose 224 H (74-99) mg/dL POC Glucose (mg/dL) (75-99) mg/dL Plasma Lactic Acid Meng (0.7-2.0) mmol/L Calcium (8.4-10.2) mg/dL Total Bilirubin 2.9 H (0.2-1.3) mg/dL Creatine Kinase 190 H (55-170) U/L Troponin I (0.000-0.034) ng/mL Total Protein 6.1 L (6.3-8.2) g/dL Urine Protein (Negative) 02/23/20 02/23/20 02/23/20 Range/Units 19:51 19:51 19:51 RBC (4.30-5.90) m/uL Hgb (13.0-17.5) gm/dL Hct (39.0-53.0) % RDW (11.5-15.5) % Lymphocytes # (1.0-4.8) k/uL INR (<1.2) Sodium (137-145) mmol/L Potassium (3.5-5.1) mmol/L Chloride (98-107) mmol/L Carbon Dioxide (22-30) mmol/L BUN (9-20) mg/dL Creatinine (0.66-1.25) mg/dL Glucose (74-99) mg/dL POC Glucose (mg/dL) (75-99) mg/dL Plasma Lactic Acid Meng 5.1 H* (0.7-2.0) mmol/L Calcium (8.4-10.2) mg/dL Total Bilirubin (0.2-1.3) mg/dL Creatine Kinase 187 H (55-170) U/L Troponin I 0.081 H* (0.000-0.034) ng/mL Total Protein (6.3-8.2) g/dL Urine Protein (Negative) 02/23/20 02/23/20 02/23/20 Range/Units 21:06 22:17 22:36 RBC (4.30-5.90) m/uL Hgb (13.0-17.5) gm/dL Hct (39.0-53.0) % RDW (11.5-15.5) % Lymphocytes # (1.0-4.8) k/uL INR (<1.2) Sodium (137-145) mmol/L Potassium (3.5-5.1) mmol/L Chloride (98-107) mmol/L Carbon Dioxide (22-30) mmol/L BUN (9-20) mg/dL Creatinine (0.66-1.25) mg/dL Glucose (74-99) mg/dL POC Glucose (mg/dL) 142 H (75-99) mg/dL Plasma Lactic Acid Meng (0.7-2.0) mmol/L Calcium (8.4-10.2) mg/dL Total Bilirubin (0.2-1.3) mg/dL Creatine Kinase (55-170) U/L Troponin I 0.088 H* (0.000-0.034) ng/mL Total Protein (6.3-8.2) g/dL Urine Protein Trace H (Negative) 02/23/20 02/23/20 02/24/20 Range/Units 22:43 22:43 05:42 RBC 3.07 L (4.30-5.90) m/uL Hgb 9.1 L (13.0-17.5) gm/dL Hct 28.4 L (39.0-53.0) % RDW 16.0 H (11.5-15.5) % Lymphocytes # 0.4 L (1.0-4.8) k/uL INR (<1.2) Sodium (137-145) mmol/L Potassium (3.5-5.1) mmol/L Chloride (98-107) mmol/L Carbon Dioxide (22-30) mmol/L BUN (9-20) mg/dL Creatinine (0.66-1.25) mg/dL Glucose (74-99) mg/dL POC Glucose (mg/dL) (75-99) mg/dL Plasma Lactic Acid Meng 3.7 H* (0.7-2.0) mmol/L Calcium (8.4-10.2) mg/dL Total Bilirubin (0.2-1.3) mg/dL Creatine Kinase (55-170) U/L Troponin I 0.091 H* (0.000-0.034) ng/mL Total Protein (6.3-8.2) g/dL Urine Protein (Negative) 02/24/20 02/24/20 Range/Units 05:42 06:07 RBC (4.30-5.90) m/uL Hgb (13.0-17.5) gm/dL Hct (39.0-53.0) % RDW (11.5-15.5) % Lymphocytes # (1.0-4.8) k/uL INR (<1.2) Sodium 127 L (137-145) mmol/L Potassium 2.8 L (3.5-5.1) mmol/L Chloride 77 L (98-107) mmol/L Carbon Dioxide 40 H (22-30) mmol/L BUN 36 H (9-20) mg/dL Creatinine 1.73 H (0.66-1.25) mg/dL Glucose 201 H (74-99) mg/dL POC Glucose (mg/dL) 233 H (75-99) mg/dL Plasma Lactic Acid Meng (0.7-2.0) mmol/L Calcium 8.1 L (8.4-10.2) mg/dL Total Bilirubin 2.7 H (0.2-1.3) mg/dL Creatine Kinase (55-170) U/L Troponin I (0.000-0.034) ng/mL Total Protein 6.0 L (6.3-8.2) g/dL Urine Protein (Negative) Thrombosis Risk Factor Assmnt - DVT/VTE Prophylaxis DVT/VTE Prophylaxis: Pharmacologic Prophylaxis ordered - Choose All That Apply Any of the Below Risk Factors Present?: Yes Each Factor Represents 1 point: Abnormal pulmonary function (COPD), Obesity (BMI >25), Swollen legs (current) Other Risk Factors: Yes Each Risk Factor Represents 2 Points: Age 61-74 years Other congenital or acquired thrombophilia - If yes, enter type in comment: No Thrombosis Risk Factor Assessment Total Risk Factor Score: 5 Thrombosis Risk Factor Assessment Level: High Risk Assessment and Plan Assessment: Generalized weakness and dizziness likely due to dehydration and volume depl etion along with severe hypokalemia Severe hypokalemia with potassium 2.1 Acute COPD exacerbation Hypovolemic hyponatremia secondary to diuretics Acute kidney injury secondary to prerenal with diuretics CKD stage III Chronic CHF with systolic dysfunction Ischemic cardiomyopathy status post ICD placement is a fraction 20% COPD on home oxygen and chronic hypoxic respiratory failure Hypertension Diabetes type 2 Hyperlipidemia Obstructive sleep apnea on CPAP at home Diabetic peripheral neuropathy Osteoarthritis Ongoing nicotine addiction Daily alcohol use Obesity with BMI 32.7 Plan: Patient will be continued duo nebs, IV Solu-Medrol and oxygen therapy. Diuretics on hold due to severe hypokalemia. Potassium replacement and continue telemetry monitoring. Cardiology and pulmonary was consulted. Smoking cessation and alcohol abstinence has been counseled extensively. Prognosis guarded with multiple medical problems and comorbid conditions. Time with Patient: Greater than 30
[2020-02-25] MEDS: HYDROcodone/APAP 5-325MG 1 EACH TAB PO PRN ×3 (02:25→21:08)
[2020-02-25] MEDS: IPRATROPIUM-ALBUTEROL 3 ML NEB INHALATION PRN ×2 (03:52→13:52)
[2020-02-25 06:17] LABS: Glucose,Whole Blood 236 mg/dL (75-99)
[2020-02-25] MEDS: INSULIN ASPART (NovoLOG) 100 UNIT/ML VIAL SQ SCH ×4 (06:20→21:15)
[2020-02-25] MEDS: methylPREDNISolone SOD SUCCI 125 MG/2 ML VIAL IV SCH ×4 (06:20→23:18)
[2020-02-25] MEDS: SYMBICORT 160-4.5 MCG INHALER INHALATION SCH (07:12)
[2020-02-25] MEDS: IPRATROPIUM-ALBUTEROL 3 ML NEB INHALATION SCH ×4 (07:12→20:07)
[2020-02-25] MEDS ORDERED: METOPROLOL SUCCINATE (ER) 25 MG TAB.ER.24H PO SCH (09:00)
[2020-02-25] MEDS ORDERED: FUROSEMIDE 40 MG TAB PO SCH (09:00)
[2020-02-25] MEDS: NICOTINE 21MG/24HR PATCH TRANSDERM SCH (09:19)
[2020-02-25] MEDS: ASPIRIN 81 MG PO SCH (09:19)
[2020-02-25] MEDS: POTASSIUM CHLORIDE ER 20 MEQ TAB.ER PO SCH ×3 (09:19→21:08)
[2020-02-25] MEDS: LIDOCAINE 5% PATCH TOPICAL SCH (09:19)
[2020-02-25] MEDS: APIXABAN 5 MG TAB PO SCH ×2 (10:47→21:09)
[2020-02-25 11:51] LABS: Glucose,Whole Blood 222 mg/dL (75-99)
[2020-02-25 12:10] LABS: Hemoglobin A1C 5.6 % (4.0-6.0)
[2020-02-25 13:27] LABS: Calcium 8.4 mg/dL (8.4-10.2); Potassium 4.7 mmol/L (3.5-5.1)
[2020-02-25] MEDS: DOCUSATE 100 MG CAP PO PRN (15:12)
[2020-02-25] MEDS: LORazepam 0.5 MG TAB PO PRN ×2 (15:12→23:18)
[2020-02-25] MEDS ORDERED: FUROSEMIDE 10 MG/ML 2 ML VIAL IV ONE (15:17)
--- NOTE | 2020-02-25 16:00 | PN ---
PROGRESS NOTE Edgar is a 64-year-old gentleman who is admitted to hospital with chronic systolic heart failure, hypokalemia, hyponatremia and intravascular volume depletion. The patient is currently on midodrine, Aldactone and oral Lasix has been continued at a lower dose. On exam, heart rate is 80 beats per minute. Blood pressure is 121/60, respiratory rate is 18. Chest exam reveals good air entry bilaterally. I do not hear any crackles or rhonchi. Heart exam reveals first and second heart sounds and a systolic murmur at the apex. Abdomen is soft. There is an ejection systolic murmur in the aortic area. Abdomen is soft. Exam of the extremities did not reveal any edema. LABS: Show a hemoglobin of 9.1, potassium was 2.8. 3.6 today. ASSESSMENT: 1. Chronic systolic heart failure. 2. Hypokalemia, resolved. PLAN: Patient will continue current medications. Hopefully, home tomorrow. MMODL / IJN: [id number] /
--- NOTE | 2020-02-25 16:31 | PN ---
PROGRESS NOTE PULMONARY/CRITICAL CARE PROGRESS NOTE: DATE OF SERVICE: 02/25/2020 This is a patient well known to our service. He was admitted back on February 22. He came in with complaints of shortness of breath and lightheadedness with dizziness. He had COPD exacerbation but was also found to be profoundly hyponatremic and hypokalemic. Anyway, he is doing a bit better. Much less short of breath. His electrolytes are starting correct. In addition, he has a history of acute on chronic hypoxemic respiratory failure, acute kidney injury, ischemic cardiomyopathy, status post AICD placement, CAD, hypertension, hyperlipidemia and diabetes, among other issues. Again, currently he is doing much better. He is sitting at the bedside. He does not appear to have significant shortness of breath. I do not hear any audible wheezing, use of accessory muscles or conversational dyspnea. PHYSICAL EXAMINATION: VITAL SIGNS: Current vital signs are reviewed. Temperature 97.9, heart rate 69, respiratory rate 14, blood pressure 119/70, mean 86. Four-liter saturation is 99%. GENERAL APPEARANCE: Appears in no acute distress. HEENT EXAMINATION: Grossly unremarkable. Nasal oxygen in place. NECK: Supple. Full range of motion. No adenopathy. Neck veins are flat. CARDIOVASCULAR EXAMINATION: Regular rhythm and rate. Heart rate is 78. S1, S2 normal. There is no murmur. Heart sounds are distant. LUNGS: Lungs reveal bilaterally equal breath sounds. Breath sounds are diminished throughout. A few scattered rhonchi and wheezes are noted. No crackles. Slight prolongation on forced maneuver. ABDOMEN: Obese. Bowel sounds are heard. EXTREMITIES: Intact. No cyanosis, clubbing or edema. SKIN: Without rash. NEUROLOGIC: Neurologic examination is brief but nonfocal. LABS: Reviewed. Sodium is 124, potassium 4.7, chloride 80. CO2 is 30. Anion gap is 14. BUN and creatinine were 55 and 2.34. The rest of the labs look okay. Microbiology is pending. A chest x-ray from 02/23/2020 shows no acute cardiopulmonary disease. Medications are reviewed. Symbicort is changed to Pulmicort 1 mg and Perforomist 20 mcg twice a day. The rest of the medications as they relate to COPD exacerbation are reviewed and are appropriate. ASSESSMENT: 1. Dizziness with generalized fatigue and weakness, likely related to both hyponatremia and hypokalemia, both of which have improved. 2. Acute on chronic hypoxemic respiratory failure secondary to chronic obstructive pulmonary disease exacerbation, on home oxygen . 3. Acute kidney injury secondary to excess diuretics. 4. Known history of ischemic cardiomyopathy, status post automated implantable cardioverter defibrillator. Ejection fraction is less than 20%. 5. Coronary artery disease with previous bypass surgery. 6. Chronic and ongoing tobacco dependence. 7. Hypertension. 8. Hyperlipidemia. 9. Diabetes mellitus. 10.Chronic renal failure with stage 3 chronic kidney disease. 11.Obesity. 12.Sleep apnea syndrome, currently on CPAP. 13.Diabetic neuropathy. 14.Osteoarthritis. 15.Ongoing and daily alcohol use. PLAN: Currently the patient seems to be doing better. The sodium and potassium are both improved. Will continue to follow. Symbicort was changed to Pulmicort and Perforomist. The patient will continue on Solu-Medrol and DuoNeb. Nicotine patch is placed. No additional recommendations are made. Overall prognosis remains guarded, given his plethora of medical problems. MMODL / IJN: [id number] /
[2020-02-25 17:09] LABS: Glucose,Whole Blood 210 mg/dL (75-99)
[2020-02-25] MEDS: FORMOTEROL FUMARATE 20 MCG/2 ML NEBU INHALATION SCH (20:06)
[2020-02-25] MEDS: BUDESONIDE 1 MG/2 ML NEBU INHALATION SCH (20:06)
[2020-02-25] MEDS: METOPROLOL TARTRATE 25 MG TAB PO SCH (21:07)
[2020-02-25] MEDS: ATORVASTATIN 40 MG TAB PO SCH (21:08)
[2020-02-25 21:14] LABS: Glucose,Whole Blood 144 mg/dL (75-99)
[2020-02-25 22:14] LABS: Creatinine,Urine Random 95.8 mg/dL; Protein/Creatinine Ratio,Urine 0.125
[2020-02-25] MEDS: MELATONIN 3 MG TABLET PO PRN (23:44)
[2020-02-26] MEDS: IPRATROPIUM-ALBUTEROL 3 ML NEB INHALATION PRN ×2 (00:20→03:40)
[2020-02-26] MEDS: DOCUSATE 100 MG CAP PO PRN (00:28)
[2020-02-26] MEDS: methylPREDNISolone SOD SUCCI 125 MG/2 ML VIAL IV SCH ×3 (06:39→16:41)
[2020-02-26 06:58] LABS: Glucose,Whole Blood 165 mg/dL (75-99)
[2020-02-26] MEDS: INSULIN ASPART (NovoLOG) 100 UNIT/ML VIAL SQ SCH ×4 (07:04→20:59)
[2020-02-26] MEDS: IPRATROPIUM-ALBUTEROL 3 ML NEB INHALATION SCH ×4 (07:15→21:44)
[2020-02-26] MEDS: FORMOTEROL FUMARATE 20 MCG/2 ML NEBU INHALATION SCH ×2 (07:15→21:44)
[2020-02-26] MEDS: BUDESONIDE 1 MG/2 ML NEBU INHALATION SCH ×2 (07:15→21:44)
[2020-02-26 07:56] LABS: Calcium 8.4 mg/dL (8.4-10.2); Potassium 5.3 mmol/L (3.5-5.1)
[2020-02-26] MEDS: LORazepam 0.5 MG TAB PO PRN ×2 (08:20→20:59)
[2020-02-26] MEDS: HYDROcodone/APAP 5-325MG 1 EACH TAB PO PRN ×2 (08:20→20:58)
[2020-02-26] MEDS: NICOTINE 21MG/24HR PATCH TRANSDERM SCH (08:20)
[2020-02-26] MEDS: METOPROLOL TARTRATE 25 MG TAB PO SCH ×3 (08:20→20:59)
[2020-02-26] MEDS: APIXABAN 5 MG TAB PO SCH ×2 (08:20→20:58)
[2020-02-26] MEDS: POTASSIUM CHLORIDE ER 20 MEQ TAB.ER PO SCH ×2 (08:21→08:28)
[2020-02-26] MEDS: ASPIRIN 81 MG PO SCH (08:21)
[2020-02-26] MEDS: LIDOCAINE 5% PATCH TOPICAL SCH (08:25)
--- NOTE | 2020-02-26 08:55 | XR ---
EXAMINATION TYPE: XR chest 1V DATE OF EXAM: 02/26/2020 CLINICAL HISTORY: CHF TECHNIQUE: Portable frontal view of the chest obtained COMPARISON: Chest radiograph 02/23/2020 FINDINGS: Left-sided AICD and sternotomy wires redemonstrated. Unchanged cardiomegaly. The mediastin al silhouette is within normal limits for size. Pulmonary vasculature is normal. There is no focal ai r space opacity, pleural effusion, or pneumothorax seen. The osseous structures are intact. IMPRESSION: Cardiomegaly. No pulmonary vascular congestion.
[2020-02-26] MEDS ORDERED: polyethylene glycoL 3350 17 GM POWD.PACK PO SCH (09:45)
--- NOTE | 2020-02-26 11:01 | P.PN ---
Subjective Progress Note Date: 02/26/20 Principal diagnosis: Dizziness, lightheadedness, shortness of breath his is a very pleasant 64-year-old male patient who follows with Dr. Merritt as his primary care provider and has a known history of obesity, COPD Oxygen dependent on 2-2-1/2 L, obstructive sleep apnea with an AHI of 24 currently on CPAP, morbid obesity, chronic and ongoing tobacco dependence, congestion heart failure with an ejection fraction of 20% and the patient has an AICD in place. Anticoagulated with Eliquis. In addition, the patient has history of coronary artery disease with previous bypass surgery and history of diabetes mellitus, hypertension and hyperlipidemia. The patient has had multiple hospitalization for exacerbation of COPD and CHF. He was discharged last on 01/25/2020. He presented to the emergency room yesterday with complaints of dizziness, lightheadedness and shortness of breath. Chest x-ray revealed no acute cardiopulmonary process. He was found to be hyponatremic with a sodium of 127 and hypokalemic with a potassium of 2.1. Chloride 72. Bicarb 38. Creatinine 1.58. ProBNP 9010. Troponin 0.081, 0.088, 0.091. He is seen today in consultation on the selective care unit. He is currently sitting up at the bedside. Awake and alert in no acute distress. Still somewhat weak and fatigued. He is dyspneic on exertion. Maintaining O2 saturations up to 100% on 3 L/m per nasal cannula. She's afebrile. Hemodynamically stable. He's been initiated on IV Solu-Medrol, DuoNeb inhalations, Symbicort. NicoDerm patch in place. Anticoagulated with Eliquis. On 02/26/2020 patient seen in follow-up on selective care unit, he still quite bronchospastic and dyspneic, apparent with this morning he had episode of respiratory distress, recovered. He is sitting on the edge of the bed, he is leaning on the table, in the tripod position, is currently on 5 L of oxygen his pulse ox at [place] percent, hemodynamically he is stable, he is afebrile, patient remains on nebulized bronchodilators, IV steroids. His kidney function continues to worsen, nephrology has been consulted. Objective - Vital Signs Vital signs: Vital Signs Temp 97.6 F 02/26/20 08:00 Pulse 71 07/28/20 08:00 Resp 22 02/26/20 08:00 BP 137/73 02/26/20 08:00 Pulse Ox 100 02/26/20 08:00 Intake & Output 02/25/20 02/26/20 02/26/20 18:59 06:59 18:59 Intake Total 2364 Output Total 650 375 Balance 1714 -375 Weight 114 kg Intake: IV 800 0.9 NS at 50 ml 800 Oral 1564 Output: Urine 650 375 Other: Voiding Method Urinal Urinal # Voids 3 - Exam GENERAL EXAM: Alert, very pleasant, 64-year-old white male, on 5 L of oxygen with a pulse ox of 100%, patient is mildly short of breath, he is leaning over a table sitting on the edge the bed, has some conversational dyspnea, but no acute distress HEAD: Normocephalic/atraumatic. EYES: Normal reaction of pupils, equal size. Conjunctiva pink, sclera white. NOSE: Clear with pink turbinates. THROAT: No erythema or exudates. NECK: No masses, no JVD, no thyroid enlargement, no adenopathy. CHEST: No chest wall deformity. Symmetrical expansion. LUNGS: Equal air entry with diffuse wheezes CVS: Regular rate and rhythm, normal S1 and S2, no gallops, no murmurs, no rubs ABDOMEN: Soft, nontender. No hepatosplenomegaly, normal bowel sounds, no guarding or rigidity. EXTREMITIES: No clubbing, no edema, no cyanosis, 2+ pulses and upper and lower extremities. MUSCULOSKELETAL: Muscle strength and tone normal. SPINE: No scoliosis or deformity SKIN: No rashes CENTRAL NERVOUS SYSTEM: Alert and oriented -3. No focal deficits, tone is normal in all 4 extremities. PSYCHIATRIC: Alert and oriented -3. Appropriate affect. Intact judgment and insight. - Labs CBC & Chem 7: 02/24/20 05:42 02/26/20 06:29 Labs: Abnormal Lab Results - Last 24 Hours (Table) 02/25/20 02/25/20 02/25/20 Range/Units 11:49 12:47 17:08 Sodium 124 L (137-145) mmol/L Potassium (3.5-5.1) mmol/L Chloride 80 L (98-107) mmol/L BUN 55 H (9-20) mg/dL Creatinine 2.34 H (0.66-1.25) mg/dL Glucose 206 H (74-99) mg/dL POC Glucose (mg/dL) 222 H 210 H (75-99) mg/dL 02/25/20 02/26/20 02/26/20 Range/Units 21:10 06:10 06:29 Sodium 124 L (137-145) mmol/L Potassium 5.3 H (3.5-5.1) mmol/L Chloride 81 L (98-107) mmol/L BUN 69 H (9-20) mg/dL Creatinine 2.73 H (0.66-1.25) mg/dL Glucose 145 H (74-99) mg/dL POC Glucose (mg/dL) 144 H 165 H (75-99) mg/dL Assessment and Plan Plan: Assessment: 1 Dizziness with generalized fatigue and weakness secondary to hyponatremia and hypokalemia with presenting sodium of 127 and presenting potassium of 2.1 secondary to diuretics in the form of Lasix and Zaroxolyn in the outpatient setting 2 Acute on chronic hypoxic respiratory failure secondary to an acute exacerbation of chronic obstructive pulmonary disease, on home oxygen 3 Acute kidney injury secondary to excess diuretics 4 Known history of ischemic cardiomyopathy status post AICD, ejection fraction of less than 20% 5 Coronary artery disease with previous bypass surgery 6 Chronic and ongoing tobacco dependence 7 Hypertension 8 Hyperlipidemia 9 Diabetes mellitus 10 Chronic renal failure with stage III kidney disease 11 Obesity with a BMI of 32.7 12 Obstructive sleep apnea with an AHI of 24 currently on a CPAP treatment 13 Diabetic peripheral neuropathy 14 Osteoarthritis 15 Daily alcohol use Plan: Continue current medical treatment, same dose IV steroids, today's chest x-ray has been reviewed showing cardiomegaly, no pulmonary vascular congestion, no focal infiltrates pleural effusions or pneumothorax. Continue nebulized bronchodilators, vital signs are stable, no fever or chills, worsening renal function on today's labs, nephrology is following. We'll continue to follow I performed a history & physical examination of the patient and discussed their management with my nurse practitioner, Agnes Mckeon. I reviewed the nurse practitioner's note and agree with the documented findings and plan of care. Lung sounds are positive for diffuse wheezes throughout the lung rene. The findings and the impression was discussed with the patient. I attest to the documentation by the nurse practitioner. Time with Patient: Less than 30
[2020-02-26] MEDS ORDERED: FUROSEMIDE 20 MG TAB PO SCH (11:21)
[2020-02-26 12:13] LABS: Glucose,Whole Blood 163 mg/dL (75-99)
--- NOTE | 2020-02-26 12:18 | P.NPCON ---
History of Present Illness - Reason for Consult acute renal failure, chronic renal failure - History of Present Illness Reason for consultation: Acute kidney injury on chronic kidney disease History of present illness: Patient is a 64-year-old male seen in renal consultation for acute kidney injury on chronic kidney disease. Patient has chronic kidney disease stage III with baseline creatinine near 1.5 secondary to cardiorenal syndrome. Renal function has been worsening the last few days. Patient presented to the hospital on February 22 shortness of breath. He is being treated for COPD exacerbation. He is also been maintained on diuretics this admission. Creatinine is up 2.73 today. Patient states his urine output is quite low and has only voided about 100 mL since this morning. Sodium level is down to 124. He admits to constipation. Patient states his last bowel movement was about 6 days ago. A suppository has been ordered. Hemodynamically stable. No fever or chills. No vomiting or diarrhea. Oral intake is fair. Denies edema in the lower extremity. Chest x- ray noncitizen of fluid overload. Patient does have chronic systolic CHF with ejection fraction of less than 20%. Vital signs are stable. General: The patient appeared well nourished and normally developed. HEENT: Head exam is unremarkable. Neck is without jugular venous distension. LUNGS: Breath sounds decreased. Scattered wheezing. HEART: Rate and Rhythm are regular. Murmur noted. ABDOMEN: Soft, nontender. EXTREMITITES: 1+ edema in left lower extremity. Past Medical History Past Medical History: Coronary Artery Disease (CAD), Chest Pain / Angina, Heart Failure, COPD, Diabetes Mellitus, Hyperlipidemia, Myocardial Infarction ([place]), Osteoarthritis (OA) Additional Past Medical History / Comment(s): Coronary artery disease with a previous bypass surgery, ischemic cardiomyopathy with ejection fraction of less than 20%,HOME 02 2-2.5 LITERS AT HS, COPD, obstructive sleep apnea with an AHI of 24 currently on auto CPAP unit, obesity, hypertension, AICD placement for ischemic cardiomyopathy, Cardiomyopathy, osteoarthritis, diabetes mellitus, h yperlipidemia, hypertension.past fx rt leg.tinnitus Last Myocardial Infarction Date:: UNSURE History of Any Multi-Drug Resistant Organisms: None Reported Past Surgical History: AICD, Coronary Bypass/CABG, Heart Catheterization, Orthopedic Surgery Additional Past Surgical History / Comment(s): Pacemaker and AICD- 10/2013. changed pacer 2018, CABG 1 vessel many yrs ago per pt, BILATERAL SHOULDER SURG ALLEN , steel alcides in rt leg d/t fracture, bilat shoulders Past Anesthesia/Blood Transfusion Reactions: No Reported Reaction Type of Cardiac Device: Permanent Pacemaker, AICD Device Placement Date:: Past Psychological History: No Psychological Hx Reported Additional Psychological History / Comment(s): Pt resides with his spouse. He has a walker/cane/o2 2-2.5 liters n/c/nebulizer. he drives. Smoking Status: Current some day smoker Past Alcohol Use History: Daily Additional Past Alcohol Use History / Comment(s): Smokes half pack a day. Does drink 2 [place] every day. Past Drug Use History: None Reported - Past Family History Mother History Unknown: Yes Father Family Medical History: Myocardial Infarction (AK) Additional Family Medical History / Comment(s): Father of a AK at the age of 56yrs. Brother(s) Family Medical History: Cancer Medications and Allergies Home Medications Medication Instructions Recorded Confirmed Type Albuterol Nebulized [Ventolin 2.5 mg INHALATION RT-QID PRN 10/19/18 02/23/20 History Nebulized] Apixaban [Eliquis] 5 mg PO BID 10/19/18 02/23/20 History Aspirin EC [Ecotrin Low Dose] 81 mg PO DAILY #90 tablet. 10/28/18 02/23/20 Rx Atorvastatin [Lipitor] 40 mg PO HS 11/01/18 02/23/20 History Albuterol Inhaler [Ventolin Hfa 1 puff INHALATION RT-QID 01/22/20 02/23/20 History Inhaler] Fluticasone/Salmeterol [Advair 1 puff INHALATION RT-BID 01/22/20 02/23/20 History 250-50 Diskus] Budesonide-Formot 160-4.5 Mcg 2 puff INHALATION RT-BID #1 inh 01/25/20 02/23/20 Rx [Symbicort 160-4.5 Mcg Inhaler] Metoprolol Succinate (ER) [Toprol 25 mg PO DAILY #30 tab.er.24h 01/25/20 02/23/20 Rx XL] Midodrine [ProAmatine] 5 mg PO AC-BID #20 tab 01/25/20 02/23/20 Rx Docusate [Colace] 200 mg PO HS PRN 02/23/20 02/23/20 History Furosemide [Lasix] 20 mg PO BID 02/23/20 02/23/20 History Insulin Glargine [Lantus] 5 - 10 units SQ DAILY 02/23/20 02/24/20 History Unknown Suppository 1 dose RECTAL ONCE PRN 02/23/20 02/23/20 History metOLazone [Zaroxolyn] 5 mg PO DAILY 02/23/20 02/23/20 History Allergies Allergy/AdvReac Type Severity Reaction Status Date / Time Latex, Natural Rubber Allergy Rash/Hives Verified 02/23/20 22:02 levofloxacin [From Levaquin] Allergy Rash/Hives Verified 02/23/20 22:02 mold Allergy Rash/Hives Verified 02/23/20 22:02 prednisone Allergy Rash/Hives Verified 02/23/20 22:02 STEROIDS AdvReac Rash/Hives Uncoded 02/23/20 22:02 Physical Exam Vitals: Vital Signs Temp Pulse Pulse Resp BP Pulse Ox 02/26/20 11:21 72 02/26/20 11:09 72 02/26/20 08:00 97.6 F 71 22 137/73 100 02/26/20 07:35 72 02/26/20 07:27 72 02/26/20 07:26 72 02/26/20 07:15 72 02/26/20 04:00 70 20 139/64 100 02/26/20 03:52 70 02/26/20 03:40 72 02/26/20 00:32 70 02/26/20 00:20 68 02/26/20 00:00 71 22 131/66 100 02/25/20 20:29 74 02/25/20 20:20 70 02/25/20 20:07 70 02/25/20 20:00 97.8 F 71 22 147/62 99 02/25/20 16:12 74 02/25/20 16:00 97.9 F 68 22 132/66 100 02/25/20 15:59 70 02/25/20 13:53 78 Intake and Output 02/25/20 02/26/20 02/26/20 22:59 06:59 14:59 Intake Total 1902 0 Output Total 325 375 800 Balance 1577 -375 -800 Intake: IV 800 0.9 NS at 50 ml 800 Oral 1102 0 Output: Urine 325 375 800 Other: Voiding Method Urinal Urinal # Voids 3 # Bowel Movements 0 Weight 114 kg Results - Lab Results Most recent lab results Calcium 8.4 mg/dL (8.4-10.2) 02/26/20 06:29 Phosphorus 4.3 mg/dL (2.5-4.5) 02/24/20 05:42 Magnesium 1.8 mg/dL (1.6-2.3) 02/24/20 05:42 Urine Creatinine 95.8 mg/dL 02/25/20 15:54 Urine Total Protein 12 mg/dL 02/25/20 15:54 02/24/20 05:42 02/26/20 06:29 Assessment and Plan Plan: Assessment: 1. Acute kidney injury mostly prerenal secondary to diuresis. Rule out urinary retention. Creatinine 2.73 today. 2. Chronic kidney disease stage III with baseline creatinine near 1.5 secondary to cardiorenal syndrome. 3. Severe hypokalemia on admission secondary to diuresis. Improved. Potassium now on the higher side. 4. Chronic systolic CHF with ejection fraction of less than 20% with moderate mitral regurgitation and pulmonary hypertension. 5. Hypovolemic hyponatremia. 6. Constipation. Plan: Stop Lasix. Start normal saline at 50 mL an hour. Check bladder scan to rule out urinary retention. Add lactulose 20 g 3 times daily as needed for constipation. Continue to monitor renal function and urine output. Stop potassium supplementation. Thank you for the consultation. I will continue to follow the patient with you during his hospital stay.
[2020-02-26] MEDS: bisacodyL 10 MG SUPP RECTAL STA ×3 (12:49→16:05)
[2020-02-26] MEDS: SODIUM CHLORIDE 0.9% 1,000 ML IV SCH ×2 (12:50→20:40)
--- NOTE | 2020-02-26 15:49 | PN ---
PROGRESS NOTE A 64-year-old gentleman who is admitted to hospital with chronic systolic heart failure and hyperkalemia. His diuretic was on hold on his admission. On exam today heart rate is 70 beats per minute, blood pressure is 137/70, respiratory rate is 18. Chest exam reveals bilateral wheezing. Heart exam reveals first and second heart sounds, ejection systolic murmur in the aortic area. Abdomen is soft. Exam of the extremities reveals bilateral 1+ pitting edema. LABS: Show that the potassium is 5.3, sodium is 124, BUN is 6 9, creatinine is 2.7. ASSESSMENT: 1. Chronic systolic heart failure. 2. Chronic obstructive pulmonary disease exacerbation. 3. Renal insufficiency. 4. Permanent atrial fibrillation. PLAN: I will resume his Lasix as he is developing leg edema. MMODL / IJN: [id number] /
[2020-02-26 17:05] LABS: Glucose,Whole Blood 192 mg/dL (75-99)
[2020-02-26 20:55] LABS: Glucose,Whole Blood 160 mg/dL (75-99)
[2020-02-26] MEDS: ATORVASTATIN 40 MG TAB PO SCH (20:58)
[2020-02-26] MEDS: MELATONIN 3 MG TABLET PO PRN (22:10)
[2020-02-26 23:02] VITALS: TEMP 97.6
--- NOTE | 2020-02-26 23:54 | P.PN ---
Subjective Progress Note Date: 02/25/20 Principal diagnosis: Acute CHF exacerbation Patient is a 64-year-old male with a known history of COPD on oxygen, coronary artery disease with history of CABG and cardiomyopathy with ejection fraction 20% status post ICD placement, obstructive sleep apnea on CPAP at home, hypertension, diabetes type 2, history of [place], osteoarthritis, daily alcohol use and ongoing nicotine addiction came to ER with complaints of dizziness and lightheadedness and has been fatigued with generalized weakness. Patient has been having shortness of breath as well getting worse for the past 3 to 4 days. Occasional cough. Whitish sputum production. No complaints of fever or chills. No worsening leg swelling. No nausea vomiting or abdominal pain or diarrhea. Lab data showed WBC 9.2, hemoglobin 9.4 and platelets 210 INR 1.2 Sodium 127, potassium 2.19 chloride 72, BUN 32 and creatinine 1.58 blood sugar is 228 Lactic acid 5.1 on admission Troponin 0 0.081, 0.088, 0.091 proBNP 9010 Urine negative for infection Chest x-ray showed no acute cardiopulmonary disease. No change. EKG showed ventricular paced rhythm Abdominal x-ray showed no acute abdomen. 02/25/2020 Patient is currently sitting on the side of the bed still complaining of shortness of breath and exertional dyspnea. Does have bilateral lower extremity swelling. Lasix is on hold due to hyponatremia and acute kidney injury. Continued on breathing treatments. Laboratory pressure sodium 124, potassium 4.7, BUN 55 and creatinine 2.34, Cardiology and pulmonary is following. Patient denied any complaints of chest pain. No cough or sputum production. Current medications reviewed. Objective - Vital Signs Vital signs: Vital Signs Temp 97.9 F 02/25/20 16:00 Pulse 74 02/25/20 20:29 Resp 22 02/25/20 16:00 BP 132/66 02/25/20 16:00 Pulse Ox 100 02/25/20 16:00 Intake & Output 02/25/20 02/25/20 02/26/20 06:59 18:59 06:59 Intake Total 222 2364 Output Total 550 650 Balance -328 1714 Weight 112.7 kg Intake: IV 800 0.9 NS at 50 ml 800 Oral 222 1564 Output: Urine 550 650 Other: Voiding Method Urinal Urinal # Voids 3 - Exam PHYSICAL EXAMINATION: Patient is lying in the bed comfortably, no acute distress, awake alert and oriented.. HEENT: Normocephalic. Neck is supple. Pupils reactive. Nostrils clear. Oral cavity is moist. Ears reveal no drainage. Neck reveals no JVD, carotid bruits, or thyromegaly. CHEST EXAMINATION: Trachea is central. Symmetrical expansion. Bilateral dimin ished air entry and expiratory wheezing.. CARDIAC: Normal S1, S2 with no gallops. No murmurs ABDOMEN: Soft. Bowel sounds normal. No organomegaly. No abdominal bruits. Extremities: 2+ edema. No clubbing or cyanosis Neurologically awake, alert, oriented x3 with well-coordinated movements. No focal deficits noted Skin: No rash or skin lesions. Psychiatric: Coperative. Nonsuicidal Musculoskeletal: No joint swelling or deformity. Normal range of motion. - Labs CBC & Chem 7: 02/24/20 05:42 02/26/20 06:29 Labs: Abnormal Lab Results - Last 24 Hours (Table) 02/25/20 02/25/20 02/25/20 Range/Units 06:16 11:49 12:47 Sodium 124 L (137-145) mmol/L Chloride 80 L (98-107) mmol/L BUN 55 H (9-20) mg/dL Creatinine 2.34 H (0.66-1.25) mg/dL Glucose 206 H (74-99) mg/dL POC Glucose (mg/dL) 236 H 222 H (75-99) mg/dL 02/25/20 02/25/20 Range/Units 17:08 21:10 Sodium (137-145) mmol/L Chloride (98-107) mmol/L BUN (9-20) mg/dL Creatinine (0.66-1.25) mg/dL Glucose (74-99) mg/dL POC Glucose (mg/dL) 210 H 144 H (75-99) mg/dL Assessment and Plan Assessment: Generalized weakness and dizziness likely due to dehydration and volume depletion along with severe hypokalemia Severe hypokalemia with potassium 2.1, replaced. Acute COPD exacerbation Hypovolemic hyponatremia secondary to diuretics Acute kidney injury secondary to prerenal with diuretics CKD stage III Chronic CHF with systolic dysfunction Ischemic cardiomyopathy status post ICD placement is a fraction 20% COPD on home oxygen and chronic hypoxic respiratory failure Hypertension Diabetes type 2 Hyperlipidemia Obstructive sleep apnea on CPAP at home Diabetic peripheral neuropathy Osteoarthritis Ongoing nicotine addiction Daily alcohol use Obesity with BMI 32.7 Plan: Patient will be continued duo nebs, IV Solu-Medrol and oxygen therapy. Diuretics on hold due to severe hypokalemia. Potassium replacement and continue telemetry monitoring. Cardiology and pulmonary is following. Smoking cessation and alcohol abstinence has been counseled extensively. Prognosis guarded with multiple medical problems and comorbid conditions. Time with Patient: Greater than 30
[2020-02-27] MEDS: methylPREDNISolone SOD SUCCI 125 MG/2 ML VIAL IV SCH (00:49)
[2020-02-27 02:15] VITALS: BP 133/81; PULSE 70; RESP 22
[2020-02-27] MEDS: HYDROcodone/APAP 5-325MG 1 EACH TAB PO PRN (02:17)
[2020-02-27] MEDS ORDERED: SODIUM BICARB 8.4% 50 ML SYR (1 MEQ/ML) ONE (03:05)
[2020-02-27] MEDS ORDERED: AMIODARONE 50 MG/ML 3 ML VIAL IV ONE (03:05)
[2020-02-27] MEDS ORDERED: LIDOCAINE 2% SYG (PF) 100 MG/5 ML ONE (03:05)
[2020-02-27] MEDS ORDERED: EPINEPHrine 10 ML SYRINGE (0.1 MG/ML) ONE (03:05)
[2020-02-27] MEDS ORDERED: MAGNESIUM SULFATE SYG 4.06 MEQ/ML SYRINGE ONE (03:05)
[2020-02-27] MEDS ORDERED: DEXTROSE 5% IN WATER 50 ML BAG ONE (03:05)
--- NOTE | 2020-02-28 14:54 | CDI ---
Documentation Clarification Form Date: 02/28/20 From: Christy Sharp Phone: If you have a question about this query, please contact Abeba Daley, Scouring Machine Tender at [phone] between 8am and 5pm. Admit Date: Discharge Date: Patient Name: Visit Number: ATTENTION: The Clinical Documentation Specialists (CDI) and [facility] Coding Staff appreciate your assistance in clarifying documentation. Please respond to the clarification below the line at the bottom and electronically sign. The CDI & [facility] Coding staff will review the response and follow-up if needed. Please note: Queries are made part of the Legal Health Record. If you have any questions, please contact the author of this message via ITS. Dear Dr. Walker You documented a diagnosis of acute on chronic hypoxic respiratory failure in your consult note and progress notes - which may lack sufficient clinical evidence/support. History/Risk Factors: COPD, chronic hypoxic respiratory failure, systolic CHF, obstructive sleep apnea, morbid obesity. Clinical Indicators: shortness of breath, exertional dyspnea, on 02/25 patient in the tripod position on 5 L of O2 per nasal cannula Tobacco Use: Current some day smoker Home Oxygen: Around the clock Vital signs: T. 98.3, P. 68, R. 18, BP 134/68, Pulse Ox.: 98% - 100% on O2 Treatment: Oxygen per nasal cannula at 3 - 5 l/min Based on the clinical evidence and your professional judgment, do you feel acute hypoxic respiratory failure is a valid diagnosis? Yes, acute hypoxic respiratory failure present/active during this admission as evidence by (additional clinical support): yes No, acute hypoxic respiratory failure was ruled out. Other (please specify diagnosis) Unable to determine MTDD
--- NOTE | 2020-02-28 16:31 | CDI ---
Documentation Clarification Form Date: 02/28/20 From: Christy Sharp Phone: If you have a question about this query, please contact Abeba Daley Marking Stitcher at [phone] between 8am and 5pm. Admit Date: 02/23/20 Discharge Date:02/27/20 Patient Name: Edgar Colvin Visit Number: [id number] ATTENTION: The Clinical Documentation Specialists (CDI) and [facility] Coding Staff appreciate your assistance in clarifying documentation. Please respond to the clarification below the line at the bottom and electronically sign. The CDI & [facility] Coding staff will review the response and follow-up if needed. Please note: Queries are made part of the Legal Health Record. If you have any questions, please contact the author of this message via ITS. Dear Dr. Youssef Acute kidney injury was documented in the H&P, Dr. Walker's consult note and progress notes, Dr. Carroll's consult note and your consult note. History/Risk Factors: Hypertension, CKD 3, diabetes Patients baseline BUN/CR/GFR: 32/1.51/46 Clinical Indicators: Elevated creatinine Current BUN/Cr/GFR: 69/2.73/24 Treatment: IVF: 1 liter NS bolus, then at 130 mls/hr In order to capture the severity of condition, please clarify if the condition signifies: Acute renal failure, Please specify etiology (if known): Cortical Necrosis Medullary Necrosis Tubular Necrosis Acute kidney injury Other, please specify Unable to determine pre-renal, cardiorenal MTDD
--- NOTE | 2020-03-11 09:51 | CDI ---
Documentation Clarification Form Date: 03/11/20 From: Christy Sharp Phone: If you have a question about this query, please contact Abeba Daley, Finish Molder at [phone] between 8am and 5pm. Admit Date: 02/23/20 Discharge Date:02/27/20 Patient Name: Edgar Colvin Visit Number: [id number] ATTENTION: The Clinical Documentation Specialists (CDI) and [facility] Coding Staff appreciate your assistance in clarifying documentation. Please respond to the clarification below the line at the bottom and electronically sign. The CDI & [facility] Coding staff will review the response and follow-up if needed. Please note: Queries are made part of the Legal Health Record. If you have any questions, please contact the author of this message via ITS. Dear Dr. Peterson The patient presented with the following: COPD exacerbation and generalized weakness likely due to dehydration, volume depletion and severe hypokalemia. History/Risk Factors: COPD exacerbation, severe hypokalemia, VENANCIO, systolic CHF, permanent a-fib, chronic hypoxic respiratory failure Clinical Indicators: No pulse on 02/26. Lab findings: 02/25 - sodium 124, potassium 5.3, chloride 81, BUN 69 creatinine 2.73 Radiology findings: CXR on 02/25: Cardiomegaly. No pulmonary vascular congestion. Treatment: CPR, bicarb, epinephrine In your professional opinion, can you please clarify the preliminary cause of ? Other, please specify Unable to determine Acute on chronic CHF with systolic dysfunction MTDD
--- NOTE | 2020-03-21 07:17 | P.PN ---
Subjective Progress Note Date: 02/26/20 Principal diagnosis: Acute CHF exacerbation Patient is a 64-year-old male with a known history of COPD on oxygen, coronary artery disease with history of CABG and cardiomyopathy with ejection fraction 20% status post ICD placement, obstructive sleep apnea on CPAP at home, hypertension, diabetes type 2, history of [place], osteoarthritis, daily alcohol use and ongoing nicotine addiction came to ER with complaints of dizziness and lightheadedness and has been fatigued with generalized weakness. Patient has been having shortness of breath as well getting worse for the past 3 to 4 days. Occasional cough. Whitish sputum production. No complaints of fever or chills. No worsening leg swelling. No nausea vomiting or abdominal pain or diarrhea. Lab data showed WBC 9.2, hemoglobin 9.4 and platelets 210 INR 1.2 Sodium 127, potassium 2.19 chloride 72, BUN 32 and creatinine 1.58 blood sugar is 228 Lactic acid 5.1 on admission Troponin 0 0.081, 0.088, 0.091 proBNP 9010 Urine negative for infection Chest x-ray showed no acute cardiopulmonary disease. No change. EKG showed ventricular paced rhythm Abdominal x-ray showed no acute abdomen. 02/25/2020 Patient is currently sitting on the side of the bed still complaining of shortness of breath and exertional dyspnea. Does have bilateral lower extremity swelling. Lasix is on hold due to hyponatremia and acute kidney injury. Continued on breathing treatments. Laboratory pressure sodium 124, potassium 4.7, BUN 55 and creatinine 2.34, Cardiology and pulmonary is following. Patient denied any complaints of chest pain. No cough or sputum production. 02/26/2020 Patient is currently sitting on the side of the bed. Still having shortness of breath and dyspnea while at rest. Patient does hyponatremia and nephrology is following. Patient is being continued on IV diuresis. Cardiology is on board as well. Laboratory data showed sodium 124, potassium 5.3, BUN 63 and creatinine increased to 2.73. Calcium 8.4. Discussed with his son at bedside in detail. Prognosis guarded at this time. Current medications reviewed. Objective - Vital Signs Vital signs: Vital Signs Temp 97.7 F 02/26/20 16:40 Pulse 72 02/26/20 17:03 Resp 18 02/26/20 16:40 BP 123/65 02/26/20 16:40 Pulse Ox 96 02/26/20 16:40 Intake & Output 02/26/20 02/26/20 02/27/20 06:59 18:59 06:59 Intake Total 100 300 Output Total 375 800 Balance -375 -700 300 Weight 114 kg Intake: Intake, IV Titration 300 Amount Sodium Chloride 0.9% 1, 300 000 ml @ 50 mls/hr IV . Q20H [facility] Rx#:[id number] Oral 100 Output: Urine 375 800 Other: Voiding Method Urinal # Voids 1 # Bowel Movements 1 - Exam PHYSICAL EXAMINATION: Patient is lying in the bed comfortably, mild distress With shortness of breath, awake alert and oriented.. HEENT: Normocephalic. Neck is supple. Pupils reactive. Nostrils clear. Oral cavity is moist. Ears reveal no drainage. Neck reveals no JVD, carotid bruits, or thyromegaly. CHEST EXAMINATION: Trachea is central. Symmetrical expansion. Using accessory muscles. Bilateral diminished air entry and expiratory wheezing.. CARDIAC: Normal S1, S2 with no gallops. No murmurs ABDOMEN: Soft. Bowel sounds normal. No organomegaly. No abdominal bruits. Extremities: 2+ edema. No clubbing or cyanosis Neurologically awake, alert, oriented x3 with well-coordinated movements. No focal deficits noted Skin: No rash or skin lesions. Psychiatric: Coperative. Nonsuicidal Musculoskeletal: No joint swelling or deformity. Normal range of motion. - Labs CBC & Chem 7: 02/24/20 05:42 02/26/20 06:29 Labs: Abnormal Lab Results - Last 24 Hours (Table) 02/25/20 02/26/20 02/26/20 Range/Units 21:10 06:10 06:29 Sodium 124 L (137-145) mmol/L Potassium 5.3 H (3.5-5.1) mmol/L Chloride 81 L (98-107) mmol/L BUN 69 H (9-20) mg/dL Creatinine 2.73 H (0.66-1.25) mg/dL Glucose 145 H (74-99) mg/dL POC Glucose (mg/dL) 144 H 165 H (75-99) mg/dL 02/26/20 02/26/20 Range/Units 12:09 17:04 Sodium (137-145) mmol/L Potassium (3.5-5.1) mmol/L Chloride (98-107) mmol/L BUN (9-20) mg/dL Creatinine (0.66-1.25) mg/dL Glucose (74-99) mg/dL POC Glucose (mg/dL) 163 H 192 H (75-99) mg/dL Assessment and Plan Assessment: Acute on Chronic CHF with systolic dysfunction Ischemic cardiomyopathy status post ICD placement is a fraction 20% Generalized weakness and dizziness likely due to dehydration and volume depletion along with severe hypokalemia Acute kidney injury secondary to prerenal with diuretics Severe hypokalemia with potassium 2.1, replaced. Acute COPD exacerbation Hypovolemic hyponatremia secondary to diuretics CKD stage III COPD on home oxygen and chronic hypoxic respiratory failure Hypertension Diabetes type 2 Hyperlipidemia Obstructive sleep apnea on CPAP at home Diabetic peripheral neuropathy Osteoarthritis Ongoing nicotine addiction Daily alcohol use Obesity with BMI 32.7 Plan: Patient will be continued duo nebs, IV Solu-Medrol and oxygen therapy. Diuretics on hold due to severe hypokalemia. Gentle hydration with normal saline due to severe hyponatremia.. Potassium replacement and continue telemetry monitoring. Cardiology and pulmonary is following. Smoking cessation and alcohol abstinence has been counseled extensively. Prognosis guarded with multiple medical problems and comorbid conditions. Time with Patient: Greater than 30
--- NOTE | 2020-03-21 07:23 | P.DS ---
Providers Date of admission: 02/23/20 20:20 Expected date of discharge: 02/27/20 Attending physician: Arlene Carter MD Consults: 02/23/20 20:19 Consult Physician Routine Consulting Provider: Alesha Tompkins Consult Reason/Comments: copd Do you want consulting provider notified?: Yes 02/23/20 20:48 Consult Physician Urgent Consulting Provider: Glen Carroll Consult Reason/Comments: cardiac evaluation Do you want consulting provider notified?: Yes 02/25/20 15:24 Consult Physician Routine Consulting Provider: Lazaro Dimas Consult Reason/Comments: VENANCIO Do you want consulting provider notified?: Yes Primary care physician: René Hernandez Hospital Course: diagnosis Acute on Chronic CHF with systolic dysfunction Acute COPD exacerbation Hypovolemic hyponatremia secondary to diuretics Acute kidney injury secondary to prerenal with diuretics Generalized weakness and dizziness likely due to dehydration and volume depletion along with severe hypokalemia Severe hypokalemia with potassium 2.1, replaced. CKD stage III Ischemic cardiomyopathy status post ICD placement is a fraction 20% COPD on home oxygen and chronic hypoxic respiratory failure Hypertension Diabetes type 2 Hyperlipidemia Obstructive sleep apnea on CPAP at home Diabetic peripheral neuropathy Osteoarthritis Ongoing nicotine addiction Daily alcohol use Obesity with BMI 32.7 Hospital course Patient is a 64-year-old male with a known history of COPD on oxygen, coronary artery disease with history of CABG and cardiomyopathy with ejection fraction 20% status post ICD placement, obstructive sleep apnea on CPAP at home, hypertension, diabetes type 2, history of MT, osteoarthritis, daily alcohol use and ongoing nicotine addiction came to ER with complaints of dizziness and lightheadedness and has been fatigued with generalized weakness. Patient has been having shortness of breath as well getting worse for the past 3 to 4 days. Occasional cough. Whitish sputum production. No complaints of fever or chills. No worsening leg swelling. No nausea vomiting or abdominal pain or diarrhea. Lab data showed WBC 9.2, hemoglobin 9.4 and platelets 210 INR 1.2 Sodium 127, potassium 2.19 chloride 72, BUN 32 and creatinine 1.58 blood sugar is 228 Lactic acid 5.1 on admission Troponin 0 0.081, 0.088, 0.091 proBNP 9010 Urine negative for infection Chest x-ray showed no acute cardiopulmonary disease. No change. EKG showed ventricular paced rhythm Abdominal x-ray showed no acute abdomen. 02/25/2020 Patient is currently sitting on the side of the bed still complaining of shortness of breath and exertional dyspnea. Does have bilateral lower extremity swelling. Lasix is on hold due to hyponatremia and acute kidney injury. Continued on breathing treatments. Laboratory pressure sodium 124, potassium 4.7, BUN 55 and creatinine 2.34, Cardiology and pulmonary is following. Patient denied any complaints of chest pain. No cough or sputum production. 02/26/2020 Patient is currently sitting on the side of the bed. Still having shortness of breath and dyspnea while at rest. Patient does hyponatremia and nephrology is following. Patient is being continued on IV diuresis. Cardiology is on board as well. Laboratory data showed sodium 124, potassium 5.3, BUN 63 and creatinine increased to 2.73. Calcium 8.4. Discussed with his son at bedside in detail. Prognosis guarded at this time. Overnight patient became unresponsive while talking to the RN. CODE BLUE was initiated at around 3:05 AM. Patient was pronounced at 3:40 AM on 02/27/20. Family has been notified. Patient Condition at Discharge: Undetermined Plan - Discharge Summary Discharge Rx Participant: No New Discharge Prescriptions: No Action Apixaban [Eliquis] 5 mg PO BID Albuterol Nebulized [Ventolin Nebulized] 2.5 mg INHALATION RT-QID PRN PRN Reason: Shortness Of Breath Aspirin EC [Ecotrin Low Dose] 81 mg PO DAILY #90 tablet. Atorvastatin [Lipitor] 40 mg PO HS Albuterol Inhaler [Ventolin Hfa Inhaler] 1 puff INHALATION RT-QID Fluticasone/Salmeterol [Advair 250-50 Diskus] 1 puff INHALATION RT-BID Midodrine [ProAmatine] 5 mg PO AC-BID #20 tab Budesonide-Formot 160-4.5 Mcg [Symbicort 160-4.5 Mcg Inhaler] 2 puff INHALATION RT-BID #1 inh Metoprolol Succinate (ER) [Toprol XL] 25 mg PO DAILY #30 tab.er.24h Unknown Suppository 1 dose RECTAL ONCE PRN PRN Reason: Constipation Docusate [Colace] 200 mg PO HS PRN PRN Reason: Constipation Furosemide [Lasix] 20 mg PO BID Insulin Glargine [Lantus] 5 - 10 units SQ DAILY metOLazone [Zaroxolyn] 5 mg PO DAILY Discharge Medication List Albuterol Nebulized [Ventolin Nebulized] 2.5 mg INHALATION RT-QID PRN 10/19/18 [History] Apixaban [Eliquis] 5 mg PO BID 10/19/18 [History] Aspirin EC [Ecotrin Low Dose] 81 mg PO DAILY #90 tablet.dr 10/28/18 [Rx] Atorvastatin [Lipitor] 40 mg PO HS 11/01/18 [History] Albuterol Inhaler [Ventolin Hfa Inhaler] 1 puff INHALATION RT-QID 01/22/20 [History] Fluticasone/Salmeterol [Advair 250-50 Diskus] 1 puff INHALATION RT-BID 01/22/20 [History] Budesonide-Formot 160-4.5 Mcg [Symbicort 160-4.5 Mcg Inhaler] 2 puff INHALATION RT-BID #1 inh 01/25/20 [Rx] Metoprolol Succinate (ER) [Toprol XL] 25 mg PO DAILY #30 tab.er.24h 01/25/20 [Rx] Midodrine [ProAmatine] 5 mg PO AC-BID #20 tab 01/25/20 [Rx] Docusate [Colace] 200 mg PO HS PRN 02/23/20 [History] Furosemide [Lasix] 20 mg PO BID 02/23/20 [History] Insulin Glargine [Lantus] 5 - 10 units SQ DAILY 02/23/20 [History] Unknown Suppository 1 dose RECTAL ONCE PRN 02/23/20 [History] metOLazone [Zaroxolyn] 5 mg PO DAILY 02/23/20 [History] Follow up Appointment(s)/Referral(s): Mary Merritt MD [Primary Care Provider] - 1-2 days [facility], [NON-STAFF] - Discharge Disposition: - Preliminary Cause of Preliminary Cause of : Acute on Chronic CHF with systolic dysfunction, VENANCIO
== END 2020-02-27 06:31 | disposition expired | DRG 190 ==
LOC: EC 19:19 → 4SSUR 20:20 → 3SCARD 20:59
PROVIDERS: ADMIT Internal Medicine; ATTEND Internal Medicine
PROC: 5A12012 Performance of Cardiac Output, Single, Manual (ICD-10-PCS; principal; 2020-02-27)
DX: J44.1 Chronic obstructive pulmonary disease with (acute) exacerbation (principal); J96.21 Acute and chronic respiratory failure with hypoxia; I50.23 Acute on chronic systolic (congestive) heart failure; E87.1 Hypo-osmolality and hyponatremia; I13.0 Hypertensive heart and chronic kidney disease with heart failure and stage 1 through stage 4 chronic kidney disease, or unspecified chronic kidney disease; I48.21 Permanent atrial fibrillation; N17.9 Acute kidney failure, unspecified; I47.2 Ventricular tachycardia; I46.9 Cardiac arrest, cause unspecified; I27.20 Pulmonary hypertension, unspecified; N18.3 Chronic kidney disease, stage 3 (moderate); E11.22 Type 2 diabetes mellitus with diabetic chronic kidney disease; E11.42 Type 2 diabetes mellitus with diabetic polyneuropathy; R33.9 Retention of urine, unspecified; E66.01 Morbid (severe) obesity due to excess calories; Z79.4 Long term (current) use of insulin; Z99.81 Dependence on supplemental oxygen; Z20.828 Contact with and (suspected) exposure to other viral communicable diseases; E78.5 Hyperlipidemia, unspecified; E86.0 Dehydration; E86.1 Hypovolemia; E87.5 Hyperkalemia; E87.6 Hypokalemia; F17.200 Nicotine dependence, unspecified, uncomplicated; G47.33 Obstructive sleep apnea (adult) (pediatric); I25.10 Atherosclerotic heart disease of native coronary artery without angina pectoris; I25.2 Old myocardial infarction; I25.5 Ischemic cardiomyopathy; I34.0 Nonrheumatic mitral (valve) insufficiency; K59.00 Constipation, unspecified; M19.90 Unspecified osteoarthritis, unspecified site; T50.2X5A Adverse effect of carbonic-anhydrase inhibitors, benzothiadiazides and other diuretics, initial encounter; H93.19 Tinnitus, unspecified ear; R79.89 Other specified abnormal findings of blood chemistry; Z68.32 Body mass index [BMI] 32.0-32.9, adult; Z79.01 Long term (current) use of anticoagulants; Z79.51 Long term (current) use of inhaled steroids; Z79.899 Other long term (current) drug therapy; Z79.82 Long term (current) use of aspirin; Z79.52 Long term (current) use of systemic steroids; Z95.810 Presence of automatic (implantable) cardiac defibrillator; Z95.1 Presence of aortocoronary bypass graft; Z88.8 Allergy status to other drugs, medicaments and biological substances; Z88.1 Allergy status to other antibiotic agents; Z91.040 Latex allergy status; Z99.89 Dependence on other enabling machines and devices; Z82.49 Family history of ischemic heart disease and other diseases of the circulatory system; Z80.9 Family history of malignant neoplasm, unspecified
CPT/HCPCS: 36415; 71045; 71046; 74018; 80048; 80053; 80061; 81003; 82550; 82570; 83036; 83605; 83735; 83880; 83930; 83935; 84100; 84132; 84156; 84300; 84484; 85025; 85610; 85730; 93005; 94640; 94760; 96365; 96375; 99291